=== PATIENT | female | born 1950 | race Hispanic/Latino ===

== ENCOUNTER 2016-12-08 10:17 | Inpatient (IN) | payer MEDICARE, MEDICAID ==
[2016-12-08 10:17] VITALS: BMI 31.1
--- NOTE | 2016-12-08 12:14 | C.PDOC ---
History Of Present Illness 66 y/o female, PMHx of peripheral vascular changes, limb ischemia, and stents to bilateral legs, sent to ER by DR. Alvarado for evaluation. Patient c/o bilateral leg pain when walking. Also reports increasing cold sensation to bilateral feet. Patient seen by Dr. Alvarado today. Denies fever, chills, chest pain, SOB, nausea, vomiting, weakness, numbness, or other associated symptoms. Time Seen by Provider: 12/08/16 11:24 Chief Complaint (Nursing): Lower Extremity Problem/Injury History Per: Patient History/Exam Limitations: no limitations Onset/Duration Of Symptoms: Days Current Symptoms Are (Timing): Worse Recent travel outside of the [place]: No Past Medical History Reviewed: Historical Data, Nursing Documentation, Vital Signs Vital Signs: Last Vital Signs Temp 98.7 F 12/08/16 16:40 Pulse 62 12/08/16 16:40 Resp 18 12/08/16 16:40 BP 154/79 H 12/08/16 16:40 Pulse Ox 98 12/08/16 16:40 - Medical History PMH: Anemia, Arthritis, Back Problems (sciatica), CAD, Diabetes, HTN, Hypercholesterolemia Surgical History: Coronary Stent (X1), Tonsillectomy - [facility] Procedures ARTHROCENTESIS (07/18/14) DILATION OF L FEM ART WITH DRUG-ELUT INTRALUM, PERC APPROACH (10/14/15) DILATION OF LEFT EXTERNAL ILIAC VEIN, PERCUTANEOUS APPROACH (11/04/15) DILATION OF LEFT FEMORAL VEIN, PERCUTANEOUS APPROACH (11/04/15) DILATION OF R FEM ART WITH INTRALUM DEV, PERC APPROACH (10/28/15) DILATION OF R POPL ART WITH INTRALUM DEV, PERC APPROACH (10/28/15) DILATION OF RIGHT ANTERIOR TIBIAL ARTERY, PERC APPROACH (03/07/16) DILATION OF RIGHT FEMORAL ARTERY, PERCUTANEOUS APPROACH (03/07/16) DILATION OF RIGHT POPLITEAL ARTERY, PERCUTANEOUS APPROACH (03/07/16) EXTIRPATION OF MATTER FROM L EXT ILIAC VEIN, PERC APPROACH (11/04/15) EXTIRPATION OF MATTER FROM LEFT FEMORAL VEIN, PERC APPROACH (11/04/15) EXTIRPATION OF MATTER FROM R FEM ART, PERC APPROACH (10/28/15) INTRODUCE OTH THROMBOLYTIC IN PERIPH VEIN, PERC (11/04/15) TRANSFUSE NONAUT RED BLOOD CELLS IN PERIPH VEIN, PERC (11/04/15) VACCINATION NEC (03/02/14) Family History: States: Diabetes - Social History Hx Tobacco Use: Yes Hx Alcohol Use: No Hx Substance Use: No - Immunization History Hx Tetanus Toxoid Vaccination: No Hx Influenza Vaccination: No Hx Pneumococcal Vaccination: Yes (PT UNSURE) Review Of Systems Except As Marked, All Systems Reviewed And Found Negative. Constitutional: Negative for: Fever, Chills Cardiovascular: Negative for: Chest Pain Respiratory: Negative for: Cough, Shortness of Breath Gastrointestinal: Negative for: Nausea, Vomiting Musculoskeletal: Positive for: Leg Pain (bilateral), Foot Pain (bilateral) Skin: Negative for: Rash Neurological: Negative for: Weakness, Numbness, Dizziness Physical Exam - Physical Exam Appears: Non-toxic, No Acute Distress Skin: Normal Color, Warm, Dry, No Rash Head: Atraumatic, Normacephalic Eye(s): bilateral: Normal Inspection, PERRL, EOMI Oral Mucosa: Moist Neck: Normal ROM, Supple Chest: Symmetrical Cardiovascular: Rhythm Regular Respiratory: Normal Breath Sounds, No Rales, No Rhonchi, No Wheezing Gastrointestinal/Abdominal: Soft, No Tenderness, No Guarding, No Rebound Back: Normal Inspection Extremity: Normal ROM, Tenderness (bilateral dosral feet), No Calf Tenderness, Capillary Refill, No Deformity, Other (left leg cooler than right, 3.0 cm area of erythema right medial ankle. Bilateral feet are pale) Extremity: Bilateral: Atraumatic Pulses: Left Dorsalis Pedis: Decreased, Right Dorsalis Pedis: Decreased Neurological/Psych: Oriented x3, Normal Speech, Normal Cognition, Normal Motor, Normal Sensation Gait: Steady ED Course And Treatment - Laboratory Results Result Diagrams: 12/08/16 12:25 12/08/16 12:25 O2 Sat by Pulse Oximetry: 98 (RA) Pulse Ox Interpretation: Normal - Radiology CXR: Viewed By Me, Read By Radiologist CXR Interpretation: Yes: No Acute Disease. No: Infiltrates, Pnemothorax Medical Decision Making Medical Decision Making: Plan: * Arterial scan * CxR * Labs * Reassess Progress: On re-exam, the patient has pain with walking secondary to increased claudication. The case was discussed with Dr. Alvarado who states he will consult on the patient for vascular studies and possible surgery on the stent in the bilateral legs. Dr. Alvarado wants the patient admtted to the hospitalist. The case was discussed with who agrees to admit the patient. Disposition - Disposition Disposition: HOSPITALIZED Disposition Time: 12:00 Condition: GOOD - Clinical Impression Clinical Impression: arterial Oclusion - PA / CAKE PUNCHER / Resident Statement MD/DO has reviewed & agrees with the documentation as recorded. - Scribe Statement The provider has reviewed the documentation as recorded by the Scribe Omkar Lynn All medical record entries made by the Catrachito were at my direction and personally dictated by me. I have reviewed the chart and agree that the record accurately reflects my personal performance of the history, physical exam, medical decision making, and the department course for this patient. I have also personally directed, reviewed, and agree with the discharge instructions and disposition.
[2016-12-08 12:41] LABS: BASO # 0.1 K/uL (0.0-0.2); BASO % 0.8 % (0.0-2.0); EOS # 0.1 K/uL (0.0-0.7); EOS % 1.4 % (0.0-4.0); HEMOGLOBIN 10.7 g/dL (11.0-16.0); LYMPH # 1.5 K/uL (1.0-4.3); LYMPH % 19.4 % (20.0-40.0); MEAN CELL VOLUME 81.4 fL (81.0-99.0); MEAN CORPUSCULAR HEMOGLOBIN 26.7 pg (27.0-31.0); MEAN CORPUSCULAR HGB CONC 32.8 g/dL (33.0-37.0); MEAN PLATELET VOLUME 9.9 fL (7.2-11.7); MONO # 0.5 K/uL (0.0-0.8); MONO % 6.8 % (0.0-10.0); NEUT # 5.6 K/uL (1.8-7.0); NEUT % 71.6 % (50.0-75.0); RED CELL DISTRIBUTION WIDTH 13.8 % (11.5-14.5); WHITE BLOOD COUNT 7.8 K/uL (4.8-10.8)
[2016-12-08 12:44] LABS: ALBUMIN 3.6 g/dL (3.5-5.0)
[2016-12-08 12:47] LABS: ALB/GLOB RATIO 1.1 (1.0-2.1); GFR AFRICAN-AMERICAN > 60; GFR NON-AFRICAN AMERICAN > 60
[2016-12-08 12:48] LABS: ALT/SGPT 20 U/L (9-52); AST/SGOT 14 U/L (14-36); BLOOD UREA NITROGEN 17 mg/dL (7-17); CALCIUM 9.1 mg/dl (8.6-10.4)
[2016-12-08 12:50] LABS: INR 1.2
--- NOTE | 2016-12-08 13:07 | RAD ---
HISTORY: SOB COMPARISON: Chest x-ray performed 03/07/16 TECHNIQUE: Chest, one view. FINDINGS: Examination limited by habitus. LUNGS: No focal consolidation. Please note that chest x-ray has limited sensitivity for the detection of pulmonary masses. PLEURA: No significant pleural effusion identified. No definite pneumothorax . CARDIOVASCULAR: Heart size appears within normal limits. Atherosclerotic calcifications of the aorta. OSSEOUS STRUCTURES: No acute osseous abnormality identified. VISUALIZED UPPER ABDOMEN: Unremarkable. OTHER FINDINGS: None. IMPRESSION: No focal consolidation, significant pleural effusion, or definite pneumothorax identified.
[2016-12-08 14:13] LABS: SQUAMOUS EPITHIAL 9 /hpf (0-5); URINE BACTERIA RARE (<OCC); URINE BILIRUBIN NEGATIVE (NEGATIVE); URINE BLOOD 1+ (NEGATIVE); URINE CLARITY Hazy (Clear); URINE COLOR Yellow (YELLOW); URINE GLUCOSE (UA) NORMAL (Normal); URINE LEUKOCYTE ESTERASE 3+ Leu/uL (Negative); URINE NITRATE NEGATIVE (NEGATIVE); URINE PROTEIN NEGATIVE (NEGATIVE); URINE UROBILINOGEN NORMAL mg/dL (0.2-1.0)
[2016-12-08] MEDS ORDERED: Iodixanol 320 mg/ml 150 ml Bottle IV ONE (15:53)
[2016-12-08] MEDS: Sodium Chloride 0.9% 1,000 ML IV SCH (16:18)
--- NOTE | 2016-12-08 16:33 | CP.PCM.HP ---
<Kalyn Almonte - Last Filed: 12/08/16 18:09> History of Present Illness - History of Present Illness History of Present Illness: CC: LE pain 66 year old female with past medical history of DM, HTN, HLD, PVD s/p B/L stents , hx of DVT on Eliquis and CAD s/p stent presents to hospital for B/L LE claudication. She was sent in by her automatic car wash attendant, Dr. Alvarado. Patient states that she has been having progressively worsening pain with walking. She was previously able to walk a few blocks but recently is limited due to pain and can only walk about 1/2 a block. Patient also c/o having cold legs and feet. Patient also notes slight erythematous skin changes on right ankle which is painful to touch. She denies having any fevers, chills, SOB, CP, abd pain, N/V/ D/C, dysuria. Patient was previously hospitalized in 03/2016 for similar symptoms. At that time, she underwent balloon angioplasty, angiojet thrombectomy, and TPA. Patient was also hospitalized in 11/2015 for DVT. At that time, patient underwent TPA infusion. Today, patient has pulses noted with doppler. 12 point ROS are negative except for the above mentioned. PMHx; stated above Sx: LE stents B/L, CAD stent Social: 1 ppdx 50 years (quit a few days ago), denies ETOH or drug use Medications: See EDWIN NKDA Present on Admission - Present on Admission Any Indicators Present on Admission: Yes History of DVT/PE: Yes History of Uncontrolled Diabetes: No Past Patient History - Infectious Disease Hx of Infectious Diseases: None - Past Medical History & Family History Past Medical History?: Yes - Past Social History Smoking Status: Current Some Days Smoker Chewing Tobacco Use: No Cigar Use: No Alcohol: None Drugs: Denies - CARDIAC Hx Hypercholesterolemia: Yes Hx Hypertension: Yes - PULMONARY Hx Respiratory Disorders: No - HEENT Hx HEENT Problems: Yes (HOARSENESS) Hx Cataracts: Yes Other/Comment: WEARS GLASSES - ENDOCRINE/METABOLIC Hx Endocrine Disorders: Yes Hx Diabetes Mellitus Type 2: Yes - HEMATOLOGICAL/ONCOLOGICAL Hx Anemia: Yes - MUSCULOSKELETAL/RHEUMATOLOGICAL Hx Arthritis: Yes - PSYCHIATRIC Hx Substance Use: No - SURGICAL HISTORY Hx Coronary Stent: Yes (X1) Hx Tonsillectomy: Yes - ANESTHESIA Hx Anesthesia: Yes Hx Anesthesia Reactions: No Hx Malignant Hyperthermia: No Meds Home Medications: Home Medication List Medication Instructions Recorded Confirmed Type Losartan [Cozaar] 50 mg PO DAILY tab 12/15/16 Rx hydroCHLOROthiazide [Hydrodiuril] 12.5 mg PO DAILY tab 12/15/16 Rx Allergies/Adverse Reactions: Allergies Allergy/AdvReac Type Severity Reaction Status Date / Time No Known Allergies Allergy Verified 12/08/16 10:21 Physical Exam - Constitutional Appears: Non-toxic, No Acute Distress - Head Exam Head Exam: ATRAUMATIC - Eye Exam Eye Exam: EOMI - ENT Exam ENT Exam: Mucous Membranes Moist - Respiratory Exam Respiratory Exam: Clear to Auscultation Bilateral. absent: Accessory Muscle Use , Rales, Rhonchi, Wheezes, Respiratory Distress - Cardiovascular Exam Cardiovascular Exam: REGULAR RHYTHM, +S1, +S2. absent: Diastolic murmur, Gallop , Rubs, Systolic Murmur - GI/Abdominal Exam GI & Abdominal Exam: Normal Bowel Sounds, Soft. absent: Diminished Bowel Sounds , Distended, Firm, Organomegaly, Rebound, Rigid, Tenderness - Extremities Exam Extremities exam: Positive for: calf tenderness. Negative for: pedal edema, pedal pulses present (only noted with dopplers) - Neurological Exam Neurological exam: Alert, Oriented x3 - Psychiatric Exam Psychiatric exam: Normal Affect, Normal Mood - Skin Skin Exam: Dry, Intact Additional comments: erythematous skin changes noted on right ankle. Results - Vital Signs Recent Vital Signs: Last Vital Signs Temp 100.1 F H 12/08/16 10:19 Pulse 68 12/08/16 10:19 Resp 20 12/08/16 10:19 BP 113/71 12/08/16 10:19 Pulse Ox 98 12/08/16 13:11 - Labs Result Diagrams: 12/08/16 12:25 12/08/16 12:25 Assessment & Plan - Assessment and Plan (Free Text) Assessment: 66 year old female with past medical history of DM, HTN, HLD, PVD s/p B/L stents, hx of DVT on Eliquis and CAD s/p stent is admitted to hospital for worsening claudication likely due to PAD. PAD with worsening claudication - LE arterial dopplers were done. Right TEMI is 0.24 and left TEMI is 0.54 - CT angio of LE was done, results are pending - Director Of Development, Dr. Alvarado is consulted. - Lovenox 70 mg sc BID - Plavix 75 mg po qd Cellulitis of right ankle - Will consult podiatry - Started on vancomycin 1 gm IVPB qd and zosyn 3.375 mg IVPB q 6 - Patient started on Florastor - Patient started on NS 100 cc - Lotrimin top BID Hxt of DVT - will await the results of CT angio - will hold Eliquis - Started on Lovenox 70 mg Sc BID DM - Accuchecks ACHS - ISS low - Will hold home metformin - will continue home Januvia and glipizide - Recent HgbA1c in 10/2016 was 8.5 HtN - Will continue home medications: Lopressor 25 mg po qd, Losartan 50 mg po qd, HCTZ 12.5 mg po qd HLD - will continue home medication: [place] 3 fatty acid, Lipitor 40 mg po qd CAD -Will discuss with Dr. Alvarado about starting aspirin and eliquis Prophylaxis - Pepcid - Eliquis Case will be discussed with attending, Dr. Banks - Date & Time Date: 12/08/16 Time: 16:59 <Ruth Banks V - Last Filed: 12/15/16 17:40> Results - Vital Signs Recent Vital Signs: Last Vital Signs Temp 98.6 F 12/15/16 08:00 Pulse 94 H 12/15/16 09:05 Resp 24 12/15/16 09:05 BP 162/79 H 12/15/16 09:20 Pulse Ox 99 12/15/16 09:05 - Labs Result Diagrams: 12/15/16 07:04 12/15/16 07:04 Labs: Laboratory Results - last 24 hr 12/14/16 12/14/16 12/15/16 17:33 21:11 07:04 WBC 5.1 RBC 3.43 L Hgb 9.2 L Hct 28.3 L MCV 82.5 MCH 26.9 L MCHC 32.5 L RDW 13.9 Plt Count 128 L MPV 9.7 Neut % (Auto) 72.3 Lymph % (Auto) 16.2 L [place] % (Auto) 8.5 Eos % (Auto) 2.6 Baso % (Auto) 0.4 Neut # 3.7 Lymph # 0.8 L [place] # 0.4 Eos # 0.1 Baso # 0.0 Sodium Potassium Chloride Carbon Dioxide Anion Gap BUN Creatinine Est GFR ( Amer) Est GFR (Non-Af Amer) POC Glucose (mg/dL) 168 H 269 H Random Glucose Calcium Phosphorus Magnesium Total Bilirubin AST ALT Alkaline Phosphatase Total Protein Albumin Globulin Albumin/Globulin Ratio 12/15/16 12/15/16 12/15/16 07:04 08:30 11:39 WBC RBC Hgb Hct MCV MCH MCHC RDW Plt Count MPV Neut % (Auto) Lymph % (Auto) [place] % (Auto) Eos % (Auto) Baso % (Auto) Neut # Lymph # [place] # Eos # Baso # Sodium 133 Potassium 3.8 Chloride 101 Carbon Dioxide 22 Anion Gap 14 BUN 20 H Creatinine 1.0 Est GFR ( Amer) > 60 Est GFR (Non-Af Amer) 55 POC Glucose (mg/dL) 241 H 260 H Random Glucose 245 H Calcium 8.4 L Phosphorus 4.1 Magnesium 1.9 Total Bilirubin 0.7 AST 55 H D ALT 39 Alkaline Phosphatase 60 Total Protein 5.8 L Albumin 2.9 L Globulin 3.0 Albumin/Globulin Ratio 1.0 Assessment & Plan (1) Peripheral artery disease Status: Acute Priority: High (2) Chronic kidney disease, stage 3 Status: Chronic (3) CAD (coronary artery disease) Status: Chronic (4) Diabetes mellitus Status: Chronic (5) HTN (hypertension) Status: Chronic (6) Hyperlipidemia Status: Chronic (7) History of deep vein thrombosis Status: Chronic (8) Ulcer of right ankle Status: Acute (9) Prophylactic measure Status: Acute Attending/Attestation - Attestation I have personally seen and examined this patient.: Yes I have fully participated in the care of the patient.: Yes I have reviewed all pertinent clinical information: Yes Notes (Text): This is late compute entry for 12/08/16. Patient seen, examined and case discussed with day-time resident. Addendum: Family history: noncontributory Patient seen and evaluated by automatic car wash attendant outpatient, instructed to come to hospital upon worsening peripheral vascular disease. Discussed with ED PA, pulses detectable by doppler of PT and DP. Per cardiology, ordered for LE arterial doppler and CT angio of lower extremities. Patient's primary care doctor, Dr. García notified upon admission of patient hospitalization; will provide full history when has access to EMR in office. Assessment/Plan 1) Severe peripheral vascular disease * Cardiology (Dr. Alvarado) on the case-->help appreciated; patient's outpatient automatic car wash attendant * LE arterial dopplers were done. Right TEMI is 0.24 and left TEMI is 0.54 * Completed: CT angio of LE was done, results are pending * Eliquis held on admission; per cardiology,patient started on Lovenox 70 mg sc BID and Plavix 75 mg po qdaily * patient to be NPO past breakfast for procedure with Dr. Alvarado 2) Cellulitis of right ankle * Podiatry (Dr. Ken Rocha) on the case-->help appreciated; patient's outpatient travel insurance agent * Started on vancomycin 1 gm IVPB qdaily and zosyn 3.375 mg IVPB q 6hours to cover for cellulitis * Florastor 250mg PO bid * NS 100 cc/hr * Lotrimin top BID to cover for antifungal * Area outline over right ankle with purple marker by resident 3) Hxt of DVT * will await the results of CT angio of patient's lower extremities * will hold patient's Eliquis on admission; patient started on started on Lovenox 70 mg SC BID per automatic car wash attendant 4) Diabetes Mellitus * Accuchecks ACHS * ISS low * Will hold home metformin * will continue home Januvia and glipizide * Recent HgbA1c in 10/2016 was 8.5; will need repeat in 6 months-1 year 5) Hypertension * Will continue home medications: * Lopressor 25 mg po qdaily * Losartan 50 mg po qdaily * HCTZ 12.5 mg po qdaily 6) Hyperlipidemia * will continue home medication: * [place] 3 fatty acid * Lipitor 40 mg po qd-->not available on hospital formulary-->converted to Crestor during hospitalization 7) CAD * f/u automatic car wash attendant regarding aspirin; plavix and therapeutic lovenox on board 8) Prophylaxis * Pepcid for GI ppx * Held Eliquis on admission; patient started on therapuetic lovenox, and plavis * NPO for procedure with Dr. Alvarado in AM
[2016-12-08] MEDS: Clotrimazole 1% Cream(30 gm) TOP SCH (18:00)
[2016-12-08] MEDS ORDERED: Vancomycin 1 gm/NS 200 ml 1 GM/200 ML BAG IVPB SCH (19:00)
[2016-12-08] MEDS: Enoxaparin 80 mg Syringe SC SCH (19:07)
[2016-12-08] MEDS: Piperacill/Tazo 3.375gm in Dex 3.375 GM/50 ML BAG IVPB SCH (22:26)
[2016-12-08] MEDS: (Novolin R) Insulin Human Regular 100 units/ml vial SC SCH (22:28)
--- NOTE | 2016-12-08 23:34 | CP.PCM.CON ---
History of Present Illness - History of Present Illness History of Present Illness: Patient seen and evaluated For PA in am Past Patient History - Infectious Disease Hx of Infectious Diseases: None - Past Medical History & Family History Past Medical History?: Yes - Past Social History Smoking Status: Current Some Days Smoker Chewing Tobacco Use: No Cigar Use: No Alcohol: None Drugs: Denies - CARDIAC Hx Hypercholesterolemia: Yes Hx Hypertension: Yes - PULMONARY Hx Respiratory Disorders: No - HEENT Hx HEENT Problems: Yes (HOARSENESS) Hx Cataracts: Yes Other/Comment: WEARS GLASSES - ENDOCRINE/METABOLIC Hx Endocrine Disorders: Yes Hx Diabetes Mellitus Type 2: Yes - HEMATOLOGICAL/ONCOLOGICAL Hx Anemia: Yes - MUSCULOSKELETAL/RHEUMATOLOGICAL Hx Arthritis: Yes - PSYCHIATRIC Hx Substance Use: No - SURGICAL HISTORY Hx Coronary Stent: Yes (X1) Hx Tonsillectomy: Yes - ANESTHESIA Hx Anesthesia: Yes Hx Anesthesia Reactions: No Hx Malignant Hyperthermia: No Meds Allergies/Adverse Reactions: Allergies Allergy/AdvReac Type Severity Reaction Status Date / Time No Known Allergies Allergy Verified 12/08/16 10:21 - Medications Medications: Current Medications Acetaminophen (Tylenol 325mg Tab) 650 mg PO Q6 PRN PRN Reason: Fever >100.4 F Aspirin (Ecotrin) 81 mg PO DAILY [facility] Clopidogrel Bisulfate (Plavix) 75 mg PO DAILY [facility] Last Admin: 12/08/16 19:06 Dose: 75 mg Clotrimazole (Lotrimin 1%) 1 gm TOP BID [facility] Last Admin: 12/08/16 18:00 Dose: 1 applic Enoxaparin Sodium (Lovenox) 70 mg SC Q12H [facility] Last Admin: 12/08/16 19:07 Dose: 70 mg Famotidine (Pepcid) 20 mg PO DAILY PRN PRN Reason: Heartburn Gabapentin (Neurontin) 600 mg PO BID [facility] Last Admin: 12/08/16 19:06 Dose: 600 mg Glipizide (Glucotrol) 10 mg PO BID [facility] Hydrochlorothiazide (Microzide) 12.5 mg PO DAILY [facility] Sodium Chloride (Sodium Chloride 0.9%) 1,000 mls @ 100 mls/hr IV .Q10H [facility] Last Admin: 12/08/16 16:18 Dose: 100 mls/hr Piperacillin Sod/Tazobactam Sod (Zosyn 3.375 Gm Iv Premix) 3.375 gm in 50 mls @ 100 mls/hr IVPB Q6H [facility] Last Admin: 12/08/16 22:26 Dose: 100 mls/hr Vancomycin/Sodium Chloride (Vancocin) 1 gm in 200 mls @ 133 mls/hr IVPB DAILY [facility] Stop: 12/14/16 10:01 Insulin Human Regular (Novolin R) 0 unit SC ACHS [facility] PRN Reason: Protocol Last Admin: 12/08/16 22:28 Dose: Not Given Losartan Potassium (Cozaar) 50 mg PO DAILY [facility] Metoprolol Tartrate (Lopressor) 25 mg PO DAILY [facility] [id number] Ethyl Esters (Lovaza) 1,000 gm PO DAILY [facility] Rosuvastatin Calcium (Crestor) 20 mg PO HS [facility] Last Admin: 12/08/16 22:26 Dose: 20 mg Saccharomyces Boulardii (Florastor) 250 mg PO DAILY [facility] Sitagliptin Phosphate (Januvia) 100 mg PO DAILY [facility] Results - Vital Signs Recent Vital Signs: Last Vital Signs Temp 98.4 F 12/08/16 18:03 Pulse 65 12/08/16 18:03 Resp 20 12/08/16 18:03 BP 148/77 12/08/16 18:03 Pulse Ox 95 12/08/16 18:03 - Labs Result Diagrams: 12/08/16 12:25 12/08/16 12:25 Labs: Laboratory Results - last 24 hr 12/08/16 21:32 POC Glucose (mg/dL) 114 H
[2016-12-09] MEDS: Sodium Chloride 0.9% 1,000 ML IV SCH ×4 (00:50→22:39)
[2016-12-09] MEDS: Piperacill/Tazo 3.375gm in Dex 3.375 GM/50 ML BAG IVPB SCH ×4 (05:52→22:18)
[2016-12-09] MEDS: Enoxaparin 80 mg Syringe SC SCH ×2 (05:59→19:36)
[2016-12-09] MEDS: (Novolin R) Insulin Human Regular 100 units/ml vial SC SCH ×4 (07:45→22:39)
[2016-12-09] MEDS ORDERED: Omega-3-Acid Ethyl Esters 1 GM Cap PO SCH (10:00)
[2016-12-09] MEDS: Saccharomyces Boulardi 250 mg Cap PO SCH (10:44)
[2016-12-09] MEDS: Clotrimazole 1% Cream(30 gm) TOP SCH ×2 (10:45→17:47)
[2016-12-09] MEDS: Vancomycin 1 gm/NS 200 ml 1 GM/200 ML BAG IVPB SCH (11:00)
[2016-12-09 11:58] LABS: BASO % 0.6 % (0.0-2.0); EOS # 0.1 K/uL (0.0-0.7); EOS % 1.4 % (0.0-4.0); HEMOGLOBIN 10.7 g/dL (11.0-16.0); LYMPH # 1.1 K/uL (1.0-4.3); LYMPH % 18.9 % (20.0-40.0); MEAN CELL VOLUME 80.9 fL (81.0-99.0); MEAN CORPUSCULAR HEMOGLOBIN 26.3 pg (27.0-31.0); MEAN CORPUSCULAR HGB CONC 32.6 g/dL (33.0-37.0); MEAN PLATELET VOLUME 10.5 fL (7.2-11.7); MONO # 0.4 K/uL (0.0-0.8); MONO % 7.2 % (0.0-10.0); NEUT # 4.2 K/uL (1.8-7.0); NEUT % 71.9 % (50.0-75.0); RBC 4.07 Mil/uL (3.80-5.20); RED CELL DISTRIBUTION WIDTH 13.7 % (11.5-14.5); WHITE BLOOD COUNT 5.8 K/uL (4.8-10.8)
[2016-12-09 12:13] LABS: ALBUMIN 3.7 g/dL (3.5-5.0)
[2016-12-09 12:16] LABS: ALB/GLOB RATIO 1.1 (1.0-2.1); ALT/SGPT 18 U/L (9-52); AST/SGOT 15 U/L (14-36); BLOOD UREA NITROGEN 14 mg/dL (7-17); GFR AFRICAN-AMERICAN > 60; GFR NON-AFRICAN AMERICAN > 60
[2016-12-09 12:17] LABS: CALCIUM 9.1 mg/dl (8.6-10.4); MAGNESIUM 1.9 mg/dL (1.6-2.3)
--- NOTE | 2016-12-09 13:25 | VASCLAB ---
STUDY DESCRIPTION: HISTORY: PVD, hx of stents to bilateral legs, cold extr PRIORS: None. TECHNIQUE: Pulse volume recording waveforms and segmental pressures of bilateral lower extremities at multiple levels were obtained. Ankle Brachial Indices (ABIs) were calculated. Report prepared by ANJALI Mullins, RVT RIGHT LOWER EXTREMITY: * Brachial artery: Pressure - 155 mmHg. * High thigh: Pressure - mmHg: Ratio - : PVR waveform - Pulsatile * Low thigh: Pressure - mmHg: Ratio - PVR waveform: Reduced * Calf: Pressure - 55 mmHg: Ratio - 0.35 PVR waveform: Reduced * Posterior tibial Artery: Pressure - 35 mmHg: Ratio - 0.23 PVR waveform: None * Dorsalis pedis Artery: Pressure - 37 mmHg: Ratio - 0.24 PVR waveform: None * Great toe: Pressure - mmHg: Ratio - PVR waveform: Ankle brachial index (TEMI): 0.24 LEFT LOWER EXTREMITY: * Brachial artery: Pressure - 141 mmHg. * High thigh: Pressure - mmHg: Ratio - : PVR waveform - Pulsatile * Low thigh: Pressure - mmHg: Ratio - PVR waveform: Reduced * Calf: Pressure - 89 mmHg: Ratio - 0.57 PVR waveform: Reduced * Posterior tibial Artery: Pressure - 75 mmHg: Ratio - 0.48 PVR waveform: Reduced * Dorsalis pedis Artery: Pressure - 84 mmHg: Ratio - 0.54 PVR waveform: Reduced * Great toe: Pressure - mmHg: Ratio - PVR waveform: Ankle brachial index (TEMI): 0.54 OTHER FINDINGS: Right: Left: IMPRESSION: Right: This exam reveals severely decreased perfusion of the right lower extremity, noted at the superficial femoral, popliteal amd tibial artery levels. Left: This exam reveals severely decreased perfusion of the left lower extremity, noted at the superficial femoral, popliteal amd tibial artery levels.
--- NOTE | 2016-12-09 13:48 | CT ---
PROCEDURE: CT Angiography Abdomen, Pelvis and Lower Extremity with Contrast HISTORY: severe b/l leg pain, cold extr, hx of stent b/l COMPARISON: None. TECHNIQUE: Technique: CT angiography of the abdomen, pelvis and bilateral lower extremities performed in the arterial phase of enhancement. Coronal and sagittal reformats, and well as rotating MIP images of the vessels generated at the workstation. Intravenous contrast dose: 100 milliliters Visipaque 320 Radiation dose: Total exam DLP = 1956.96 MGy-cm. This CT exam was performed using one or more of the following dose reduction techniques: Automated exposure control, adjustment of the mA and/or kV according to patient size, and/or use of iterative reconstruction technique. FINDINGS: CT ANGIOGRAPHY: ABDOMINAL AORTA:: Abdominal was unremarkable MAJOR AORTIC BRANCHES: Celiac [place]: Unremarkable. Superior mesenteric artery: Unremarkable. Inferior mesenteric artery: Unremarkable. Renal arteries: Mild calcific plaque at the origin right renal artery which is otherwise unremarkable PELVIC ARTERIES: Right Common Iliac: Unremarkable. Right External Iliac: Unremarkable. Right Internal Iliac: Unremarkable. Left Common Iliac: Unremarkable. Left External Iliac: Unremarkable. Left Internal Iliac: Unremarkable. RIGHT LOWER EXTREMITY ARTERIES: Right Common Femoral: Unremarkable. Right Superficial Femoral: Proximal SFA stent has in moderate stent stenosis. There is mild to severe stenosis of the mid SFA. Mid SFA stent is has severe in stent stenosis which extends to the popliteal artery. Distal aspect of the stent in the popliteal artery is patent. The popliteal artery beyond the stent is patent but small in caliber. Right Profunda Femoris: Unremarkable. Right Anterior Tibial: Unremarkable. Right Tibioperoneal Trunk: Severe calcification of the tibioperoneal trunk. Right Posterior Tibial: Believed to be patent. Right Peroneal: Unremarkable. Right dorsalis pedis : Unremarkable. LEFT LOWER EXTREMITY ARTERIES: Left Common Femoral: Unremarkable. Left Superficial Femoral: Previously placed SFA stent is patent. There is significant in stent stenosis throughout the stent. The stent extends from the proximal SFA to the popliteal artery. The distal popliteal artery is severely stenotic. Left Profunda Femoris: Unremarkable. Left Popliteal: Severely stenotic Left Anterior Tibial: Calcification the origin anterior tibial artery which otherwise patent. Left Tibioperoneal Trunk: Moderate calcific plaque of the tibioperoneal trunk. Left Posterior Tibial: Occlusion of the distal posterior tibial artery Left Peroneal: Unremarkable. Left Dorsalis pedis: Unremarkable. NON-ANGIOGRAPHIC ASPECT OF THE EXAM: LOWER THORAX: Unremarkable. LIVER: Unremarkable. No gross lesion or ductal dilatation. GALLBLADDER AND BILE DUCTS: Unremarkable. PANCREAS: Unremarkable. No gross lesion or ductal dilatation. SPLEEN: Unremarkable. ADRENALS: Unremarkable. No mass. KIDNEYS AND URETERS: Unremarkable. No hydronephrosis. No solid mass. STOMACH AND BOWEL: Unremarkable. No obstruction. No gross mural thickening. APPENDIX: Normal appendix. PERITONEUM: Unremarkable. No free fluid. No free air. LYMPH NODES: Unremarkable. No enlarged lymph nodes. BLADDER: Unremarkable. REPRODUCTIVE: Unremarkable. BONES: No acute fracture. OTHER FINDINGS: None. IMPRESSION: CT ANGIOGRAM ABDOMEN/ PELVIS: 1. Essentially unremarkable CT angiogram of the abdomen pelvis. RIGHT LOWER EXTREMITY CT ANGIOGRAM: 1. Common femoral artery profunda femoral artery normal. 2. Proximal SFA stent has significant InStent stenosis and is otherwise patent. Distal SFA stent extending the popliteal artery is occluded. The popliteal artery beyond the stent is severely stenotic. 3. Runoff shows patent anterior tibial artery. The tibioperoneal trunk is calcified. The peroneal artery is patent. The posterior tibial artery also believed to be patent. LEFT LOWER EXTREMITY CT ANGIOGRAM: 1. Unremarkable common femoral artery profunda femoral artery. 2. SFA stent extending from proximal SFA to the popliteal artery has significant in stent stenosis and believed to be patent. 3. There is severe stenosis of popliteal artery beyond the stent. 4. Runoff shows a patent anterior tibial artery calcification near the origin. This calcification with tibioperoneal trunk. The peroneal artery is patent. There is occlusion of the distal posterior tibial artery.
[2016-12-09] MEDS ORDERED: DiphenhydrAMINE 50 mg/ml Inj IVP STA (22:02)
--- NOTE | 2016-12-09 22:23 | CP.PCM.PN ---
Subjective - Date & Time of Evaluation Date of Evaluation: 12/09/16 Time of Evaluation: 07:50 - Subjective Subjective: Patienr seen and evaluated For Peripheral angio tomorrow Objective - Vital Signs/Intake and Output Vital Signs (last 24 hours): Temp Pulse Resp BP Pulse Ox 98.3 F 55 L 20 146/72 95 12/09/16 15:10 12/09/16 15:10 12/09/16 15:10 12/09/16 15:10 12/09/16 15:10 Intake and Output: 12/09/16 12/10/16 18:59 06:59 Intake Total 950 Balance 950 - Medications Medications: Current Medications Acetaminophen (Tylenol 325mg Tab) 650 mg PO Q6 PRN PRN Reason: Fever >100.4 F Aspirin (Ecotrin) 81 mg PO DAILY [facility] Last Admin: 12/09/16 10:44 Dose: 81 mg Clopidogrel Bisulfate (Plavix) 75 mg PO DAILY [facility] Last Admin: 12/09/16 10:44 Dose: 75 mg Clotrimazole (Lotrimin 1%) 1 gm TOP BID [facility] Last Admin: 12/09/16 17:47 Dose: 1 applic Enoxaparin Sodium (Lovenox) 70 mg SC Q12H [facility] Last Admin: 12/09/16 19:36 Dose: 70 mg Famotidine (Pepcid) 20 mg PO DAILY PRN PRN Reason: Heartburn Last Admin: 12/09/16 10:44 Dose: 20 mg Gabapentin (Neurontin) 600 mg PO BID [facility] Last Admin: 12/09/16 17:47 Dose: 600 mg Glipizide (Glucotrol) 10 mg PO BID [facility] Hydrochlorothiazide (Microzide) 12.5 mg PO DAILY [facility] Last Admin: 12/09/16 10:44 Dose: 12.5 mg Sodium Chloride (Sodium Chloride 0.9%) 1,000 mls @ 100 mls/hr IV .Q10H [facility] Last Admin: 12/09/16 17:47 Dose: 100 mls/hr Piperacillin Sod/Tazobactam Sod (Zosyn 3.375 Gm Iv Premix) 3.375 gm in 50 mls @ 100 mls/hr IVPB Q6H [facility] Last Admin: 12/09/16 22:18 Dose: 100 mls/hr Vancomycin/Sodium Chloride (Vancocin) 1 gm in 200 mls @ 133 mls/hr IVPB DAILY [facility] Stop: 12/14/16 10:01 Last Admin: 12/09/16 11:00 Dose: 133 mls/hr Insulin Human Regular (Novolin R) 0 unit SC ACHS [facility] PRN Reason: Protocol Last Admin: 12/09/16 17:51 Dose: 2 unit Losartan Potassium (Cozaar) 50 mg PO DAILY [facility] Last Admin: 12/09/16 10:44 Dose: 50 mg Metoprolol Tartrate (Lopressor) 25 mg PO DAILY [facility] Last Admin: 12/09/16 10:44 Dose: 25 mg Xrkxf-6-Gpoh Ethyl Esters (Lovaza) 1,000 gm PO DAILY [facility] Last Admin: 12/09/16 10:44 Dose: 1,000 gm Rosuvastatin Calcium (Crestor) 20 mg PO HS [facility] Last Admin: 12/09/16 22:17 Dose: 20 mg Saccharomyces Boulardii (Florastor) 250 mg PO DAILY [facility] Last Admin: 12/09/16 10:44 Dose: 250 mg Sitagliptin Phosphate (Januvia) 100 mg PO DAILY [facility] Last Admin: 12/09/16 10:54 Dose: Not Given - Labs Labs: 12/09/16 11:53 12/09/16 11:53 PT 13.0 SECONDS (9.7-12.2) H 12/08/16 12:25 INR 1.2 12/08/16 12:25 APTT 35 SECONDS (21-34) H 12/08/16 12:25
--- NOTE | 2016-12-09 23:13 | CP.PCM.PN ---
<MervinColby R - Last Filed: 12/09/16 23:10> Subjective - Date & Time of Evaluation Date of Evaluation: 12/09/16 Time of Evaluation: 13:00 - Subjective Subjective: Patient seen and examined at bedside. Patient was not in acute distress. She was about to leave for her CT angio of LLE. She stated she was not in pain. She denied diarrhea, shortness of breath, chest pain, fever, headache. Objective - Vital Signs/Intake and Output Vital Signs (last 24 hours): Temp Pulse Resp BP Pulse Ox 98.3 F 55 L 20 146/72 95 12/09/16 15:10 12/09/16 15:10 12/09/16 15:10 12/09/16 15:10 12/09/16 15:10 Intake and Output: 12/09/16 12/10/16 18:59 06:59 Intake Total 950 1040 Balance 950 1040 - Medications Medications: Current Medications Acetaminophen (Tylenol 325mg Tab) 650 mg PO Q6 PRN PRN Reason: Fever >100.4 F Aspirin (Ecotrin) 81 mg PO DAILY [facility] Last Admin: 12/09/16 10:44 Dose: 81 mg Clopidogrel Bisulfate (Plavix) 75 mg PO DAILY [facility] Last Admin: 12/09/16 10:44 Dose: 75 mg Clotrimazole (Lotrimin 1%) 1 gm TOP BID [facility] Last Admin: 12/09/16 17:47 Dose: 1 applic Enoxaparin Sodium (Lovenox) 70 mg SC Q12H [facility] Last Admin: 12/09/16 19:36 Dose: 70 mg Famotidine (Pepcid) 20 mg PO DAILY PRN PRN Reason: Heartburn Last Admin: 12/09/16 10:44 Dose: 20 mg Gabapentin (Neurontin) 600 mg PO BID [facility] Last Admin: 12/09/16 17:47 Dose: 600 mg Glipizide (Glucotrol) 10 mg PO BID [facility] Hydrochlorothiazide (Microzide) 12.5 mg PO DAILY [facility] Last Admin: 12/09/16 10:44 Dose: 12.5 mg Sodium Chloride (Sodium Chloride 0.9%) 1,000 mls @ 100 mls/hr IV .Q10H [facility] Last Admin: 12/09/16 22:39 Dose: Not Given Piperacillin Sod/Tazobactam Sod (Zosyn 3.375 Gm Iv Premix) 3.375 gm in 50 mls @ 100 mls/hr IVPB Q6H [facility] Last Admin: 12/09/16 22:18 Dose: 100 mls/hr Vancomycin/Sodium Chloride (Vancocin) 1 gm in 200 mls @ 133 mls/hr IVPB DAILY [facility] Stop: 12/14/16 10:01 Last Admin: 12/09/16 11:00 Dose: 133 mls/hr Insulin Human Regular (Novolin R) 0 unit SC ACHS [facility] PRN Reason: Protocol Last Admin: 12/09/16 22:39 Dose: Not Given Losartan Potassium (Cozaar) 50 mg PO DAILY [facility] Last Admin: 12/09/16 10:44 Dose: 50 mg Metoprolol Tartrate (Lopressor) 25 mg PO DAILY [facility] Last Admin: 12/09/16 10:44 Dose: 25 mg Pmipm-5-Yjxm Ethyl Esters (Lovaza) 1,000 gm PO DAILY [facility] Last Admin: 12/09/16 10:44 Dose: 1,000 gm Rosuvastatin Calcium (Crestor) 20 mg PO HS [facility] Last Admin: 12/09/16 22:17 Dose: 20 mg Saccharomyces Boulardii (Florastor) 250 mg PO DAILY [facility] Last Admin: 12/09/16 10:44 Dose: 250 mg Sitagliptin Phosphate (Januvia) 100 mg PO DAILY [facility] Last Admin: 12/09/16 10:54 Dose: Not Given - Labs Labs: 12/09/16 11:53 12/09/16 11:53 PT 13.0 SECONDS (9.7-12.2) H 12/08/16 12:25 INR 1.2 12/08/16 12:25 APTT 35 SECONDS (21-34) H 12/08/16 12:25 - Constitutional Appears: Well - Head Exam Head Exam: ATRAUMATIC, NORMAL INSPECTION, NORMOCEPHALIC - Eye Exam Eye Exam: EOMI, Normal appearance, PERRL - ENT Exam ENT Exam: Mucous Membranes Moist, Normal Exam - Neck Exam Neck Exam: Full ROM, Normal Inspection. absent: Lymphadenopathy - Respiratory Exam Respiratory Exam: Clear to Ausculation Bilateral, NORMAL BREATHING PATTERN. absent: Wheezes - Cardiovascular Exam Cardiovascular Exam: REGULAR RHYTHM, RRR, +S1, +S2 - GI/Abdominal Exam GI & Abdominal Exam: Soft, Normal Bowel Sounds. absent: Tenderness - Rectal Exam Rectal Exam: Deferred - Extremities Exam Extremities Exam: Full ROM, Normal Capillary Refill, Normal Inspection. absent : Joint Swelling, Pedal Edema - Neurological Exam Neurological Exam: Alert, Awake, Oriented x3 - Psychiatric Exam Psychiatric exam: Normal Affect, Normal Mood - Skin Skin Exam: Dry, Intact, Normal Color, Warm Assessment and Plan - Assessment and Plan (Free Text) Assessment: 66 year old female with past medical history of DM, HTN, HLD, PVD s/p B/L stents, hx of DVT on Eliquis and CAD s/p stent is admitted to hospital for worsening claudication likely due to PAD. PAD with worsening claudication 12/09: Procedure with cardiology delayed until tomorrow - LE arterial dopplers were done. Right TEMI is 0.24 and left TEMI is 0.54 - CT angio of LE was done: 1. Unremarkable common femoral artery profunda femoral artery. 2. SFA stent extending from proximal SFA to the popliteal artery has significant in stent stenosis and believed to be patent. 3. There is severe stenosis of popliteal artery beyond the stent. 4. Runoff shows a patent anterior tibial artery calcification near the origin. This calcification with tibioperoneal trunk. The peroneal artery is patent. There is occlusion of the distal posterior tibial artery. - [facility], Dr. Alvarado is consulted. - Lovenox 70 mg sc BID - Plavix 75 mg po qd Cellulitis of right ankle - Will consult podiatry - Started on vancomycin 1 gm IVPB qd and zosyn 3.375 mg IVPB q 6 - Patient started on Florastor - Patient started on NS 100 cc - Lotrimin top BID Hxt of DVT - will await the results of CT angio - will hold Eliquis - Started on Lovenox 70 mg Sc BID DM - Accuchecks ACHS - ISS low - Will hold home metformin - will continue home Januvia and glipizide - Recent HgbA1c in 10/2016 was 8.5 HtN - Will continue home medications: Lopressor 25 mg po qd, Losartan 50 mg po qd, HCTZ 12.5 mg po qd HLD - will continue home medication: Kegley 3 fatty acid, Lipitor 40 mg po qd CAD -Will discuss with Dr. Alvarado about starting aspirin and eliquis Prophylaxis - Pepcid - Eliquis <Borker,Ruth V - Last Filed: 12/15/16 17:48> Objective - Vital Signs/Intake and Output Vital Signs (last 24 hours): Temp Pulse Resp BP Pulse Ox 98.6 F 94 H 24 162/79 H 99 12/15/16 08:00 12/15/16 09:05 12/15/16 09:05 12/15/16 09:20 12/15/16 09:05 Intake and Output: 12/15/16 12/15/16 06:59 18:59 Intake Total 1300 305 Output Total 400 300 Balance 900 5 - Labs Labs: 12/15/16 07:04 12/15/16 07:04 PT 13.0 SECONDS (9.7-12.2) H 12/08/16 12:25 INR 1.2 12/08/16 12:25 APTT 35 SECONDS (21-34) H 12/08/16 12:25 Assessment and Plan (1) Peripheral artery disease Status: Acute (2) Chronic kidney disease, stage 3 Status: Chronic (3) CAD (coronary artery disease) Status: Chronic (4) Diabetes mellitus Status: Chronic (5) HTN (hypertension) Status: Chronic (6) Hyperlipidemia Status: Chronic (7) History of deep vein thrombosis Status: Chronic (8) Ulcer of right ankle Status: Acute (9) Prophylactic measure Status: Acute Attending/Attestation - Attestation I have personally seen and examined this patient.: Yes I have fully participated in the care of the patient.: Yes I have reviewed all pertinent clinical information, including history, physical exam and plan: Yes Notes (Text): This is late computer entry for 12/09/16. Patient seen, examined, and case discussed with day-time pharmacy graduate intern. Procedure cancelled today; discussed with nurse, learning center coordinator had emergency; patient re-scheduled for tomorrow. Patient's diet resumed today. Patient to be NPO tomorrow for procedure with learning center coordinator; Note addendum: patient's DP pulses are difficult to assess based on palpation. confirmed with doppler. X is on the feet where pulses are detectable. Assessment/Plan 1) Severe peripheral vascular disease * Cardiology (Dr. 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 Right TEMI is 0.24 and left TEMI is 0.54 * Completed: CT angio of LE was done, results are pending * Eliquis held on admission; per cardiology,patient started on Lovenox 70 mg sc BID, Plavix 75 mg po qdaily, Aspirin 81mg PO daily * patient to be NPO past breakfast for procedure with Dr. Alvarado 2) Cellulitis of right ankle * Podiatry (Dr. 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 * Started on vancomycin 1 gm IVPB qdaily and zosyn 3.375 mg IVPB q 6hours to cover for cellulitis * Florastor 250mg PO bid * NS 100 cc/hr * Lotrimin top BID to cover for antifungal * Area outline over right ankle with purple marker by resident 3) Hxt of DVT * will await the results of CT angio of patient's lower extremities * will hold patient's Eliquis on admission; patient started on started on Lovenox 70 mg SC BID per learning center coordinator 4) Diabetes Mellitus * Accuchecks ACHS * ISS low * Will hold home metformin * will continue home Januvia and held glipizide * Recent HgbA1c in 10/2016 was 8.5; will need repeat in 6 months-1 year 5) Hypertension * Will continue home medications: * Lopressor 25 mg po qdaily * Losartan 50 mg po qdaily * HCTZ 12.5 mg po qdaily 6) Hyperlipidemia * will continue home medication: * Kegley 3 fatty acid * Lipitor 40 mg po qd-->not available on hospital formulary-->converted to Crestor during hospitalization 7) CAD * Aspirin 81mg po daily plavix and therapeutic lovenox on board 8) Prophylaxis * Pepcid for GI ppx * Held Eliquis on admission; patient started on therapuetic lovenox, and plavis * NPO for procedure with Dr. Alvarado in AM
[2016-12-10] MEDS: Piperacill/Tazo 3.375gm in Dex 3.375 GM/50 ML BAG IVPB SCH ×4 (05:37→22:13)
[2016-12-10] MEDS: Sodium Chloride 0.9% 1,000 ML IV SCH ×2 (05:43→08:38)
[2016-12-10] MEDS: Enoxaparin 80 mg Syringe SC SCH (06:46)
[2016-12-10 07:50] LABS: BASO % 0.7 % (0.0-2.0); EOS # 0.1 K/uL (0.0-0.7); EOS % 2.6 % (0.0-4.0); HEMOGLOBIN 9.9 g/dL (11.0-16.0); LYMPH # 0.8 K/uL (1.0-4.3); LYMPH % 20.1 % (20.0-40.0); MEAN CELL VOLUME 80.6 fL (81.0-99.0); MEAN CORPUSCULAR HEMOGLOBIN 26.8 pg (27.0-31.0); MEAN CORPUSCULAR HGB CONC 33.2 g/dL (33.0-37.0); MEAN PLATELET VOLUME 9.8 fL (7.2-11.7); MONO # 0.4 K/uL (0.0-0.8); MONO % 9.2 % (0.0-10.0); NEUT # 2.7 K/uL (1.8-7.0); NEUT % 67.4 % (50.0-75.0); NRBC % 0.1 % (0.0-2.0); RBC 3.69 Mil/uL (3.80-5.20); RED CELL DISTRIBUTION WIDTH 13.3 % (11.5-14.5); WHITE BLOOD COUNT 4.1 K/uL (4.8-10.8)
[2016-12-10 08:14] LABS: ALBUMIN 3.2 g/dL (3.5-5.0)
[2016-12-10 08:16] LABS: GFR AFRICAN-AMERICAN > 60; GFR NON-AFRICAN AMERICAN > 60
[2016-12-10 08:17] LABS: ALT/SGPT 20 U/L (9-52); AST/SGOT 15 U/L (14-36); BLOOD UREA NITROGEN 11 mg/dL (7-17)
[2016-12-10 08:18] LABS: CALCIUM 8.9 mg/dl (8.6-10.4)
--- NOTE | 2016-12-10 08:24 | CP.PCM.CON ---
History of Present Illness - History of Present Illness History of Present Illness: Pt seen at bedside for eval of right ankle ulcer and redness. Pt known to me from the office. Pt states the area has been red for over 1 week. She was seen by Dr. Alvarado in the office who wanted pt to be admitted for further work up of circ status. Pt is scheduled for lower extremity angio today with Dr. Alvarado. Pt denies any hx of trauma. Past Patient History - Infectious Disease Hx of Infectious Diseases: None - Past Medical History & Family History Past Medical History?: Yes - Past Social History Smoking Status: Current Some Days Smoker Chewing Tobacco Use: No Cigar Use: No Alcohol: None Drugs: Denies - CARDIAC Hx Hypercholesterolemia: Yes Hx Hypertension: Yes - PULMONARY Hx Respiratory Disorders: No - HEENT Hx HEENT Problems: Yes (HOARSENESS) Hx Cataracts: Yes Other/Comment: WEARS GLASSES - ENDOCRINE/METABOLIC Hx Endocrine Disorders: Yes Hx Diabetes Mellitus Type 2: Yes - HEMATOLOGICAL/ONCOLOGICAL Hx Anemia: Yes - MUSCULOSKELETAL/RHEUMATOLOGICAL Hx Arthritis: Yes - PSYCHIATRIC Hx Substance Use: No - SURGICAL HISTORY Hx Coronary Stent: Yes (X1) Hx Tonsillectomy: Yes - ANESTHESIA Hx Anesthesia: Yes Hx Anesthesia Reactions: No Hx Malignant Hyperthermia: No Meds Allergies/Adverse Reactions: Allergies Allergy/AdvReac Type Severity Reaction Status Date / Time No Known Allergies Allergy Verified 12/08/16 10:21 - Medications Medications: Current Medications Acetaminophen (Tylenol 325mg Tab) 650 mg PO Q6 PRN PRN Reason: Fever >100.4 F Aspirin (Ecotrin) 81 mg PO DAILY [facility] Last Admin: 12/09/16 10:44 Dose: 81 mg Clopidogrel Bisulfate (Plavix) 75 mg PO DAILY [facility] Last Admin: 12/09/16 10:44 Dose: 75 mg Clotrimazole (Lotrimin 1%) 1 gm TOP BID [facility] Last Admin: 12/09/16 17:47 Dose: 1 applic Enoxaparin Sodium (Lovenox) 70 mg SC Q12H [facility] Last Admin: 12/10/16 06:46 Dose: 70 mg Famotidine (Pepcid) 20 mg PO DAILY PRN PRN Reason: Heartburn Last Admin: 12/09/16 10:44 Dose: 20 mg Gabapentin (Neurontin) 600 mg PO BID [facility] Last Admin: 12/09/16 17:47 Dose: 600 mg Glipizide (Glucotrol) 10 mg PO BID [facility] Hydrochlorothiazide (Microzide) 12.5 mg PO DAILY [facility] Last Admin: 12/09/16 10:44 Dose: 12.5 mg Sodium Chloride (Sodium Chloride 0.9%) 1,000 mls @ 100 mls/hr IV .Q10H [facility] Last Admin: 12/10/16 05:43 Dose: 100 mls/hr Piperacillin Sod/Tazobactam Sod (Zosyn 3.375 Gm Iv Premix) 3.375 gm in 50 mls @ 100 mls/hr IVPB Q6H [facility] Last Admin: 12/10/16 05:37 Dose: 100 mls/hr Vancomycin/Sodium Chloride (Vancocin) 1 gm in 200 mls @ 133 mls/hr IVPB DAILY [facility] Stop: 12/14/16 10:01 Last Admin: 12/09/16 11:00 Dose: 133 mls/hr Insulin Human Regular (Novolin R) 0 unit SC ACHS [facility] PRN Reason: Protocol Last Admin: 12/09/16 22:39 Dose: Not Given Losartan Potassium (Cozaar) 50 mg PO DAILY [facility] Last Admin: 12/09/16 10:44 Dose: 50 mg Metoprolol Tartrate (Lopressor) 25 mg PO DAILY [facility] Last Admin: 12/09/16 10:44 Dose: 25 mg Oveyb-9-Uxal Ethyl Esters (Lovaza) 1,000 gm PO DAILY [facility] Last Admin: 12/09/16 10:44 Dose: 1,000 gm Rosuvastatin Calcium (Crestor) 20 mg PO HS [facility] Last Admin: 12/09/16 22:17 Dose: 20 mg Saccharomyces Boulardii (Florastor) 250 mg PO DAILY [facility] Last Admin: 12/09/16 10:44 Dose: 250 mg Sitagliptin Phosphate (Januvia) 100 mg PO DAILY [facility] Last Admin: 12/09/16 10:54 Dose: Not Given Physical Exam - Additional Findings Additional findings: Vascular exam shows diminished pulses B/L. Right ankle ulcer noted at med malleolus - dry, scaly skin with no fluccuance or probe to bone. There is localized cellulitis noted. No malodor or drainage. Results - Vital Signs Recent Vital Signs: Last Vital Signs Temp 98 F 12/10/16 07:10 Pulse 81 12/10/16 07:10 Resp 18 12/10/16 07:10 BP 179/77 H 12/10/16 07:10 Pulse Ox 94 L 12/10/16 07:10 - Labs Result Diagrams: 12/10/16 07:40 12/10/16 07:40 Labs: Laboratory Results - last 24 hr 12/09/16 12/09/16 12/09/16 11:36 11:53 11:53 WBC 5.8 RBC 4.07 Hgb 10.7 L Hct 32.9 L MCV 80.9 L MCH 26.3 L MCHC 32.6 L RDW 13.7 Plt Count 134 MPV 10.5 Neut % (Auto) 71.9 Lymph % (Auto) 18.9 L [place] % (Auto) 7.2 Eos % (Auto) 1.4 Baso % (Auto) 0.6 Neut # 4.2 Lymph # 1.1 [place] # 0.4 Eos # 0.1 Baso # 0.0 Sodium 140 Potassium 4.3 Chloride 108 H Carbon Dioxide 22 Anion Gap 14 BUN 14 Creatinine 0.8 Est GFR ( Amer) > 60 Est GFR (Non-Af Amer) > 60 POC Glucose (mg/dL) 133 H Random Glucose 123 H Calcium 9.1 Phosphorus 3.9 Magnesium 1.9 Total Bilirubin 1.1 AST 15 ALT 18 Alkaline Phosphatase 73 Total Protein 7.0 Albumin 3.7 Globulin 3.3 Albumin/Globulin Ratio 1.1 12/09/16 12/09/16 12/10/16 16:35 21:28 06:11 WBC RBC Hgb Hct MCV MCH MCHC RDW Plt Count MPV Neut % (Auto) Lymph % (Auto) [place] % (Auto) Eos % (Auto) Baso % (Auto) Neut # Lymph # [place] # Eos # Baso # Sodium Potassium Chloride Carbon Dioxide Anion Gap BUN Creatinine Est GFR ( Amer) Est GFR (Non-Af Amer) POC Glucose (mg/dL) 215 H 149 H 122 H Random Glucose Calcium Phosphorus Magnesium Total Bilirubin AST ALT Alkaline Phosphatase Total Protein Albumin Globulin Albumin/Globulin Ratio 12/10/16 12/10/16 07:40 07:40 WBC 4.1 L RBC 3.69 L Hgb 9.9 L Hct 29.7 L MCV 80.6 L MCH 26.8 L MCHC 33.2 RDW 13.3 Plt Count 127 L MPV 9.8 Neut % (Auto) 67.4 Lymph % (Auto) 20.1 [place] % (Auto) 9.2 Eos % (Auto) 2.6 Baso % (Auto) 0.7 Neut # 2.7 Lymph # 0.8 L [place] # 0.4 Eos # 0.1 Baso # 0.0 Sodium 142 Potassium 4.3 Chloride 108 H Carbon Dioxide 27 Anion Gap 11 BUN 11 Creatinine 0.8 Est GFR ( Amer) > 60 Est GFR (Non-Af Amer) > 60 POC Glucose (mg/dL) Random Glucose 118 H Calcium 8.9 Phosphorus 3.7 Magnesium 2.0 Total Bilirubin 0.8 AST 15 ALT 20 Alkaline Phosphatase 59 Total Protein 6.2 L Albumin 3.2 L Globulin 3.1 Albumin/Globulin Ratio 1.0 Assessment & Plan - Assessment and Plan (Free Text) Assessment: 1. Right ankle ulcer 2. PVD 3. Cellulitis Plan: 1. H+P 2. Wound care orders written 3. Will order X-Ray right ankle to eval for any bony erosion or osteo 4. Will cont to monitor while inhouse. Thanks for allowing me to participate in the care of your patient. - Date & Time Date: 12/10/16 Time: 08:28
[2016-12-10] MEDS: (Novolin R) Insulin Human Regular 100 units/ml vial SC SCH ×4 (08:28→21:33)
[2016-12-10] MEDS: Vancomycin 1 gm/NS 200 ml 1 GM/200 ML BAG IVPB SCH (09:15)
[2016-12-10] MEDS: Omega-3-Acid Ethyl Esters 1 GM Cap PO SCH (10:00)
[2016-12-10] MEDS: Saccharomyces Boulardi 250 mg Cap PO SCH (10:00)
[2016-12-10] MEDS ORDERED: Midazolam 2 MG/2 ML VIAL ONE (10:23)
[2016-12-10] MEDS ORDERED: Iodixanol 320 MG/ML 200 ML BOTTLE IV ONE (10:30)
[2016-12-10] MEDS ORDERED: Iodixanol 320 MG/ML 100 ML BOTTLE IV ONE (10:30)
[2016-12-10] MEDS ORDERED: ALTEPLASE IV SCH (11:19)
[2016-12-10] MEDS ORDERED: SODIUM CHLORIDE 0.9% IV SCH (11:19)
[2016-12-10] MEDS ORDERED: Heparin25000 units/250ml 1/2NS 25,000 UNITS/250 ML BAG IV ONE (11:40)
[2016-12-10] MEDS: Clotrimazole 1% Cream(30 gm) TOP SCH ×2 (12:38→18:00)
--- NOTE | 2016-12-10 14:05 | CP.PCM.CON ---
<Lionel Beckett - Last Filed: 12/10/16 15:16> History of Present Illness - History of Present Illness History of Present Illness: ICU Consult note: Dr Gresham s/p EKOS left SFA 66F with PMH of DM, HTN, HLD, PVD s/p B/L stents, hx of DVT on Eliquis and CAD s /p stent. Pt presented 3 days ago B/L LE claudication. 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 Alvarado. Pt states she was previously able to walk a few blocks but recently the increase in pain had significantly limited her to 1/2 block. Pt has also been complaining about cold limbs. Pt also has cellulitis of LLE and RLE. Pt brought to ICU s/p SFA thrombolysis and EKOS catheter placement. She is on bed rest until further notice. Currently complaining about leg pain. Worse on the right. Currently denies any N/V, F/C, SOB or chest pain. Dopplerable pulses. PMHx; stated above Sx: LE stents B/L, CAD stent Social: 1 ppdx 49 years (quit a few days ago), denies ETOH or drug use Medications: See [facility] [place] Review of Systems - Review of Systems All systems: reviewed and no additional remarkable complaints except (per hpi) Past Patient History - Infectious Disease Hx of Infectious Diseases: None - Past Medical History & Family History Past Medical History?: Yes - Past Social History Smoking Status: Current Some Days Smoker Chewing Tobacco Use: No Cigar Use: No Alcohol: None Drugs: Denies - CARDIAC Hx Hypercholesterolemia: Yes Hx Hypertension: Yes - PULMONARY Hx Respiratory Disorders: No - HEENT Hx HEENT Problems: Yes (HOARSENESS) Hx Cataracts: Yes Other/Comment: WEARS GLASSES - ENDOCRINE/METABOLIC Hx Endocrine Disorders: Yes Hx Diabetes Mellitus Type 2: Yes - HEMATOLOGICAL/ONCOLOGICAL Hx Anemia: Yes - MUSCULOSKELETAL/RHEUMATOLOGICAL Hx Arthritis: Yes - PSYCHIATRIC Hx Substance Use: No - SURGICAL HISTORY Hx Coronary Stent: Yes (X1) Hx Tonsillectomy: Yes - ANESTHESIA Hx Anesthesia: Yes Hx Anesthesia Reactions: No Hx Malignant Hyperthermia: No Meds Allergies/Adverse Reactions: Allergies Allergy/AdvReac Type Severity Reaction Status Date / Time No Known Allergies Allergy Verified 12/08/16 10:21 - Medications Medications: Current Medications Acetaminophen (Tylenol 325mg Tab) 650 mg PO Q6 PRN PRN Reason: Fever >100.4 F Aspirin (Ecotrin) 81 mg PO DAILY [facility] Last Admin: 12/10/16 10:00 Dose: Not Given Clopidogrel Bisulfate (Plavix) 75 mg PO DAILY [facility] Last Admin: 12/10/16 10:00 Dose: Not Given Clotrimazole (Lotrimin 1%) 1 gm TOP BID [facility] Last Admin: 12/10/16 12:38 Dose: Not Given Famotidine (Pepcid) 20 mg PO DAILY PRN PRN Reason: Heartburn Last Admin: 12/09/16 10:44 Dose: 20 mg Gabapentin (Neurontin) 600 mg PO BID [facility] Last Admin: 12/10/16 10:00 Dose: Not Given Glipizide (Glucotrol) 10 mg PO BID [facility] Heparin Sodium (Porcine) (Heparin) 500 units IVP Q1H [facility] Hydrochlorothiazide (Microzide) 12.5 mg PO DAILY [facility] Last Admin: 12/10/16 10:00 Dose: Not Given Sodium Chloride (Sodium Chloride 0.9%) 1,000 mls @ 100 mls/hr IV .Q10H [facility] Last Admin: 12/10/16 08:38 Dose: Not Given Piperacillin Sod/Tazobactam Sod (Zosyn 3.375 Gm Iv Premix) 3.375 gm in 50 mls @ 100 mls/hr IVPB Q6H [facility] Last Admin: 12/10/16 12:41 Dose: Not Given Vancomycin/Sodium Chloride (Vancocin) 1 gm in 200 mls @ 133 mls/hr IVPB DAILY [facility] Stop: 12/14/16 10:01 Last Admin: 12/10/16 09:15 Dose: Not Given Alteplase, Recombinant 20 mg/ (Sodium Chloride) 500 mls @ 25 mls/hr IV .Q20H [facility] Stop: 12/11/16 12:00 Insulin Human Regular (Novolin R) 0 unit SC ACHS [facility] PRN Reason: Protocol Last Admin: 12/10/16 12:40 Dose: Not Given Losartan Potassium (Cozaar) 50 mg PO DAILY [facility] Last Admin: 12/10/16 09:06 Dose: 50 mg Metoprolol Tartrate (Lopressor) 25 mg PO DAILY [facility] Last Admin: 12/10/16 09:06 Dose: 25 mg Mupirocin (Bactroban Ointment) 0 gm TOP BID [facility] [id number]-8-[id number] Ethyl Esters (Lovaza) 1 gm PO DAILY [facility] Last Admin: 12/10/16 10:00 Dose: Not Given Rosuvastatin Calcium (Crestor) 20 mg PO HS [facility] Last Admin: 12/09/16 22:17 Dose: 20 mg Saccharomyces Boulardii (Florastor) 250 mg PO DAILY [facility] Last Admin: 12/10/16 10:00 Dose: Not Given Sitagliptin Phosphate (Januvia) 100 mg PO DAILY [facility] Last Admin: 12/10/16 10:00 Dose: Not Given Physical Exam - Constitutional Appears: Non-toxic, No Acute Distress - Head Exam Head Exam: ATRAUMATIC - Eye Exam Eye Exam: EOMI Pupil Exam: PERRL - ENT Exam ENT Exam: Mucous Membranes Moist - Respiratory Exam Respiratory Exam: Clear to Auscultation Bilateral. absent: Accessory Muscle Use , Decreased Breath Sounds, Respiratory Distress - Cardiovascular Exam Cardiovascular Exam: REGULAR RHYTHM. absent: Tachycardia - GI/Abdominal Exam GI & Abdominal Exam: Soft. absent: Distended, Firm, Tenderness - Exam Additional comments: groin site C/D/I - Extremities Exam Extremities exam: Positive for: pedal pulses present. Negative for: calf tenderness, pedal edema Additional comments: cold - Neurological Exam Neurological exam: Alert, Oriented x3 - Psychiatric Exam Psychiatric exam: Normal Affect, Normal Mood - Skin Skin Exam: Normal Color, Warm Results - Vital Signs Recent Vital Signs: Last Vital Signs Temp 98 F 12/10/16 07:10 Pulse 81 12/10/16 07:10 Resp 18 12/10/16 07:10 BP 179/77 H 12/10/16 09:06 Pulse Ox 94 L 12/10/16 07:10 - Labs Result Diagrams: 12/10/16 07:40 12/10/16 07:40 Labs: Laboratory Results - last 24 hr 12/09/16 12/09/16 12/10/16 16:35 21:28 06:11 WBC RBC Hgb Hct MCV MCH MCHC RDW Plt Count MPV Neut % (Auto) Lymph % (Auto) [place] % (Auto) Eos % (Auto) Baso % (Auto) Neut # Lymph # [place] # Eos # Baso # Differential Comment Sodium Potassium Chloride Carbon Dioxide Anion Gap BUN Creatinine Est GFR ( Amer) Est GFR (Non-Af Amer) POC Glucose (mg/dL) 215 H 149 H 122 H Random Glucose Calcium Phosphorus Magnesium Total Bilirubin AST ALT Alkaline Phosphatase Total Protein Albumin Globulin Albumin/Globulin Ratio 12/10/16 12/10/16 07:40 07:40 WBC 4.1 L RBC 3.69 L Hgb 9.9 L Hct 29.7 L MCV 80.6 L MCH 26.8 L MCHC 33.2 RDW 13.3 Plt Count 127 L MPV 9.8 Neut % (Auto) 67.4 Lymph % (Auto) 20.1 [place] % (Auto) 9.2 Eos % (Auto) 2.6 Baso % (Auto) 0.7 Neut # 2.7 Lymph # 0.8 L [place] # 0.4 Eos # 0.1 Baso # 0.0 Differential Comment Sodium 142 Potassium 4.3 Chloride 108 H Carbon Dioxide 27 Anion Gap 11 BUN 11 Creatinine 0.8 Est GFR ( Amer) > 60 Est GFR (Non-Af Amer) > 60 POC Glucose (mg/dL) Random Glucose 118 H Calcium 8.9 Phosphorus 3.7 Magnesium 2.0 Total Bilirubin 0.8 AST 15 ALT 20 Alkaline Phosphatase 59 Total Protein 6.2 L Albumin 3.2 L Globulin 3.1 Albumin/Globulin Ratio 1.0 Assessment & Plan - Assessment and Plan (Free Text) Assessment: 66F POD#0 s/p SFA thrombolysis with EKOS catheter placement Plan: Neuro: GCS 15 AAO x 3 Cardiovascular: Will resume home BP meds Heparin/TPA/NS infusion into EKOS catheter as per Dr Alvarado Pulmonary: NC @ 2L PRN Gastrointestinal: Resume HHD NPO @ [place] Pepcid IVP Hematology: Type and Cross 2 units Anti-coagulation as above Endocrine: Home meds as ordered Renal: No MERLINE, baseline Cr normal. Will f/u labs s/p procedure Musculoskeletal: Bed rest til tomorrow Infectious Disease: On Zosyn GI Prophylaxis: Pepcid DVT Prophylaxis: On TPA/Heparin EKOS protocol. Resume Heparin Drip tomorrow 6 hours post removal discussed with Dr Mp Beckett, PGY3 - Date & Time Date: 12/10/16 Time: 15:18 <Alex Gresham - Last Filed: 12/10/16 16:17> Meds - Medications Medications: Current Medications Acetaminophen (Tylenol 325mg Tab) 650 mg PO Q6 PRN PRN Reason: Fever >100.4 F Clotrimazole (Lotrimin 1%) 1 gm TOP BID [facility] Last Admin: 12/10/16 12:38 Dose: Not Given Famotidine (Pepcid) 20 mg PO DAILY PRN PRN Reason: Heartburn Last Admin: 12/09/16 10:44 Dose: 20 mg Gabapentin (Neurontin) 600 mg PO BID [facility] Last Admin: 12/10/16 10:00 Dose: Not Given Glipizide (Glucotrol) 10 mg PO BID [facility] Hydrochlorothiazide (Microzide) 12.5 mg PO DAILY [facility] Last Admin: 12/10/16 10:00 Dose: Not Given Piperacillin Sod/Tazobactam Sod (Zosyn 3.375 Gm Iv Premix) 3.375 gm in 50 mls @ 100 mls/hr IVPB Q6H [facility] Last Admin: 12/10/16 12:41 Dose: Not Given Vancomycin/Sodium Chloride (Vancocin) 1 gm in 200 mls @ 133 mls/hr IVPB DAILY [facility] Stop: 12/14/16 10:01 Last Admin: 12/10/16 09:15 Dose: Not Given Alteplase, Recombinant 20 mg/ (Sodium Chloride) 500 mls @ 25 mls/hr IV .Q20H [facility] Stop: 12/11/16 12:00 Last Admin: 12/10/16 15:44 Dose: 25 mls/hr Heparin Sodium/Sodium Chloride (Heparin 56117 Units/250ml 1/2 Normal Saline) 25 ,000 units in 250 mls @ 5 mls/hr IV .Q24H PRN; Protocol PRN Reason: PROTOCOL Sodium Chloride (Sodium Chloride 0.9%) 1,000 mls @ 35 mls/hr IV .Q24H [facility] Insulin Human Regular (Novolin R) 0 unit SC ACHS [facility] PRN Reason: Protocol Last Admin: 12/10/16 12:40 Dose: Not Given Losartan Potassium (Cozaar) 50 mg PO DAILY [facility] Last Admin: 12/10/16 09:06 Dose: 50 mg Metoprolol Tartrate (Lopressor) 25 mg PO DAILY [facility] Last Admin: 12/10/16 09:06 Dose: 25 mg Mupirocin (Bactroban Ointment) 0 gm TOP BID [facility] Last Admin: 12/10/16 14:23 Dose: Not Given Rnhdc-4-[id number] Ethyl Esters (Lovaza) 1 gm PO DAILY [facility] Last Admin: 12/10/16 10:00 Dose: Not Given Rosuvastatin Calcium (Crestor) 20 mg PO HS [facility] Last Admin: 12/09/16 22:17 Dose: 20 mg Saccharomyces Boulardii (Florastor) 250 mg PO DAILY [facility] Last Admin: 12/10/16 10:00 Dose: Not Given Sitagliptin Phosphate (Januvia) 100 mg PO DAILY [facility] Last Admin: 12/10/16 10:00 Dose: Not Given Results - Vital Signs Recent Vital Signs: Last Vital Signs Temp 98.0 F 12/10/16 16:00 Pulse 66 12/10/16 16:00 Resp 16 12/10/16 16:00 BP 173/65 H 12/10/16 16:00 Pulse Ox 96 12/10/16 16:00 - Labs Result Diagrams: 12/10/16 07:40 12/10/16 07:40 Labs: Laboratory Results - last 24 hr 12/09/16 12/09/16 12/10/16 16:35 21:28 06:11 WBC RBC Hgb Hct MCV MCH MCHC RDW Plt Count MPV Neut % (Auto) Lymph % (Auto) [place] % (Auto) Eos % (Auto) Baso % (Auto) Neut # Lymph # [place] # Eos # Baso # Differential Comment Sodium Potassium Chloride Carbon Dioxide Anion Gap BUN Creatinine Est GFR ( Amer) Est GFR (Non-Af Amer) POC Glucose (mg/dL) 215 H 149 H 122 H Random Glucose Calcium Phosphorus Magnesium Total Bilirubin AST ALT Alkaline Phosphatase Total Protein Albumin Globulin Albumin/Globulin Ratio 12/10/16 12/10/16 07:40 07:40 WBC 4.1 L RBC 3.69 L Hgb 9.9 L Hct 29.7 L MCV 80.6 L MCH 26.8 L MCHC 33.2 RDW 13.3 Plt Count 127 L MPV 9.8 Neut % (Auto) 67.4 Lymph % (Auto) 20.1 [place] % (Auto) 9.2 Eos % (Auto) 2.6 Baso % (Auto) 0.7 Neut # 2.7 Lymph # 0.8 L [place] # 0.4 Eos # 0.1 Baso # 0.0 Differential Comment Sodium 142 Potassium 4.3 Chloride 108 H Carbon Dioxide 27 Anion Gap 11 BUN 11 Creatinine 0.8 Est GFR ( Amer) > 60 Est GFR (Non-Af Amer) > 60 POC Glucose (mg/dL) Random Glucose 118 H Calcium 8.9 Phosphorus 3.7 Magnesium 2.0 Total Bilirubin 0.8 AST 15 ALT 20 Alkaline Phosphatase 59 Total Protein 6.2 L Albumin 3.2 L Globulin 3.1 Albumin/Globulin Ratio 1.0 Attending/Attestation - Attestation I have personally seen and examined this patient.: Yes I have fully participated in the care of the patient.: Yes I have reviewed all pertinent clinical information: Yes Notes (Text): 12/10/16 16:16 Patient seen and examined in the intensive care unit. Case discussed with STAFF in the morning. 66 year old female with past medical history of DM, HTN, HLD, PVD s/p B/L stents, hx of DVT on Eliquis and CAD s/p stent is admitted to hospital for worsening claudication likely due to PAD s/p SFA thrombolysis with EKOS catheter placement
[2016-12-10] MEDS ORDERED: HYDROmorphone 1 mg/ml ISec IVP STA (15:04)
[2016-12-10] MEDS ORDERED: Heparin25000 units/250ml 1/2NS 25,000 UNITS/250 ML BAG IV PRN (15:35)
[2016-12-10] MEDS: SODIUM CHLORIDE 0.9% IV SCH (15:44)
[2016-12-10] MEDS: ALTEPLASE IV SCH (15:44)
[2016-12-10] MEDS ORDERED: Sodium Chloride 0.9% 1,000 ML IV SCH (16:00)
--- NOTE | 2016-12-10 17:17 | CP.PCM.PN ---
Subjective - Date & Time of Evaluation Date of Evaluation: 12/10/16 Time of Evaluation: 17:15 - Subjective Subjective: Medical Attending Note Follow-up: Severe peripheral vascular disease Patient seen, examined and case discussed with ICU and cardiology. Patient completed TPA-directed echos procedure peripheral angiogram with SFA lower left extremity with Dr. Antoine. Patient transferred to ICU post procedure. Patient reporting pain post-procedure. Patient did not received medications this morning. Discussed cardiology, to stop aspirin, plavix, and therapeutic Lovenox. Patient reports she feels constipated. She has not had a bowel movement today. Objective - Vital Signs/Intake and Output Vital Signs (last 24 hours): Temp Pulse Resp BP Pulse Ox 98.0 F 69 14 170/71 H 96 12/10/16 16:00 12/10/16 16:45 12/10/16 16:45 12/10/16 16:45 12/10/16 16:00 Intake and Output: 12/10/16 12/10/16 06:59 18:59 Intake Total 1890 435 Output Total 400 Balance 1890 35 - Medications Medications: Current Medications Acetaminophen (Tylenol 325mg Tab) 650 mg PO Q6 PRN PRN Reason: Fever >100.4 F Clotrimazole (Lotrimin 1%) 1 gm TOP BID [facility] Last Admin: 12/10/16 12:38 Dose: Not Given Famotidine (Pepcid) 20 mg PO DAILY PRN PRN Reason: Heartburn Last Admin: 12/09/16 10:44 Dose: 20 mg Gabapentin (Neurontin) 600 mg PO BID [facility] Last Admin: 12/10/16 10:00 Dose: Not Given Glipizide (Glucotrol) 10 mg PO BID [facility] Hydralazine HCl (Apresoline) 10 mg IVP Q6H PRN PRN Reason: Shortness of Breath Hydrochlorothiazide (Microzide) 12.5 mg PO DAILY [facility] Last Admin: 12/10/16 10:00 Dose: Not Given Hydromorphone HCl (Dilaudid) 1 mg IVP Q4H PRN PRN Reason: Pain, severe (8-10) Piperacillin Sod/Tazobactam Sod (Zosyn 3.375 Gm Iv Premix) 3.375 gm in 50 mls @ 100 mls/hr IVPB Q6H [facility] Last Admin: 12/10/16 12:41 Dose: Not Given Vancomycin/Sodium Chloride (Vancocin) 1 gm in 200 mls @ 133 mls/hr IVPB DAILY [facility] Stop: 12/14/16 10:01 Last Admin: 12/10/16 09:15 Dose: Not Given Alteplase, Recombinant 20 mg/ (Sodium Chloride) 500 mls @ 25 mls/hr IV .Q20H [facility] Stop: 12/11/16 12:00 Last Admin: 12/10/16 15:44 Dose: 25 mls/hr Heparin Sodium/Sodium Chloride (Heparin 97438 Units/250ml 1/2 Normal Saline) 25 ,000 units in 250 mls @ 5 mls/hr IV .Q24H PRN; Protocol PRN Reason: PROTOCOL Sodium Chloride (Sodium Chloride 0.9%) 1,000 mls @ 35 mls/hr IV .Q24H [facility] Last Admin: 12/10/16 16:20 Dose: 35 mls/hr Insulin Human Regular (Novolin R) 0 unit SC ACHS [facility] PRN Reason: Protocol Last Admin: 12/10/16 16:50 Dose: 2 unit Losartan Potassium (Cozaar) 50 mg PO DAILY [facility] Last Admin: 12/10/16 09:06 Dose: 50 mg Metoprolol Tartrate (Lopressor) 25 mg PO DAILY [facility] Last Admin: 12/10/16 09:06 Dose: 25 mg Mupirocin (Bactroban Ointment) 0 gm TOP BID [facility] Last Admin: 12/10/16 14:23 Dose: Not Given Nghij-3-Hqyy Ethyl Esters (Lovaza) 1 gm PO DAILY [facility] Last Admin: 12/10/16 10:00 Dose: Not Given Rosuvastatin Calcium (Crestor) 20 mg PO HS [facility] Last Admin: 12/09/16 22:17 Dose: 20 mg Saccharomyces Boulardii (Florastor) 250 mg PO DAILY [facility] Last Admin: 12/10/16 10:00 Dose: Not Given Sitagliptin Phosphate (Januvia) 100 mg PO DAILY [facility] Last Admin: 12/10/16 10:00 Dose: Not Given - Labs Labs: 12/10/16 07:40 12/10/16 07:40 PT 13.0 SECONDS (9.7-12.2) H 12/08/16 12:25 INR 1.2 12/08/16 12:25 APTT 35 SECONDS (21-34) H 12/08/16 12:25 - Constitutional Appears: Non-toxic, No Acute Distress - Head Exam Head Exam: NORMAL INSPECTION - Eye Exam Eye Exam: EOMI - ENT Exam ENT Exam: Mucous Membranes Moist - Respiratory Exam Respiratory Exam: Clear to Ausculation Bilateral, NORMAL BREATHING PATTERN. absent: Rales, Rhonchi, Wheezes - Cardiovascular Exam Cardiovascular Exam: REGULAR RHYTHM, +S1, +S2 - GI/Abdominal Exam GI & Abdominal Exam: Soft, Normal Bowel Sounds. absent: Distended, Firm, Guarding, Rigid, Tenderness, Rebound - Extremities Exam Extremities Exam: absent: Pedal Edema, Tenderness Additional comments: X on the foot denotes pulse by doppler - Neurological Exam Neurological Exam: Alert, Awake, Oriented x3 - Psychiatric Exam Psychiatric exam: Normal Affect, Normal Mood - Skin Skin Exam: Dry, Intact, Normal Color, Warm. absent: Pallor, Petechiae Assessment and Plan (1) Peripheral artery disease Assessment & Plan: * Cardiology (Dr. Antoine) on board-->help appreciated * Abdominal Angiography (12/08/16): essential unremarkable CT angiogram of abdomen /pelvis; right lower extremity Ct angiogram: proxminal SFA stent has significant in stenosis and is otherwise patent. Distal SFA stent extending the poplietal artery is occluded. Popliteal artery beyond the stent is severely stenotic. Run off shows patent anterior tibilar artery. Tibioperonal trunk is calcified. Peroneal artery is patent. Posterior tibial artery also believed to be patient. Left lower extremity: SFA tent extending from proximal SFA to the popliteal artery has significant in stent stenosis believed to patent. Severe stenosis of popliteal artery beyond the stent. Runoff shows a patent anterior tibilar artery calcification near the origin. Calcification with tibioperoneal trunk. Peroneal artery is patent. Occlusion of distal posterior tibial artery. * Lower extremity ultrasound (12/08/16) severely decreased perfusion of the right lower extremity, noted at the superficial femoral, poplitea, and tibilar artery levels. Left: this exam reveals severely decreased perfusion of the left lower extremity, noted at the superifical femoral, popliteal, and tibial artery levels * Patient is status post TPA-directed EKOS of left lower extremity POD 0. Per Dr. antoine, discontinue aspirin, plavix, and lovenox. Dr. Antoine will come tomorrow to assess for possible removal of catheter and possible start on Heparin drip. * Patient for possible peripheral angiogram for right lower extremity on Tuesday * Patient has prior of ballon angioplasty, angiojuet thrombectomy, and TPA for right lower extremity arterial occlusion in 03/2016 and prior peripheral vascular stents in 10/2015 Status: Chronic (2) Chronic kidney disease, stage 3 Assessment & Plan: Monitor BUN/Cr Patient follows-up with Dr. Coley as outpatient. Status: Chronic (3) CAD (coronary artery disease) Assessment & Plan: 12/10: Patient discontinued Aspirin, Plavix, and therapuetic Lovenox per Dr. Antoine. Will determine with Dr. Antoine when to re-start medications following procedure on Tuesday, November 13. Status: Chronic (4) Diabetes mellitus Assessment & Plan: 12/10: Patient's metformin held on admission; As outpatient, Patient takes Metformin 1000mg PO BID, Glipizide 10mg PO bid, Januvia 50mg PO daily as outpatient; c/w Accuchecks QAC and HS Hgba1c: 8.7 (10/04/16) Crestor 20mg POqHS Losartan 50mg PO daily Status: Chronic (5) HTN (hypertension) Assessment & Plan: Monitor vital signs Hydralazine 10mg IVQ6h PRN SBP>160 Cozaar 50mg PO daily Lopressor 25mg PO daily Pain control: Morphine 2mg IV 4h PRN moderate pain; Dilaudid 1mg IV q4H PRN severe pain Status: Chronic (6) Hyperlipidemia Assessment & Plan: 12/10:: Crestor 20mg POqHS; Lipid panel in AM Status: Chronic (7) History of deep vein thrombosis Assessment & Plan: 12/10: prior to admission on Eliquis for b/l dvts; diagnosed last year; will order for venous doppler b/l LE Status: Chronic (8) Ulcer of right ankle Assessment & Plan: 12/10: patient started on Zosyn and Vancomycin on admission to cover for cellulitis; and given Clotrimazole cream to cover for antifungal Consult: Dr. Ken Rocha (patient's podiatry) on board Patient is pending Xray r/o bone erosion 12/08/16 Blood Cultures: no growth after 24hours X2 Status: Acute (9) Prophylactic measure Assessment & Plan: s/p TPA directed EKOS (POD O) Pepcid 20mg PO daily for GI ppx Florastor 250mg PO bid Status: Acute
[2016-12-10 17:52] LABS: HEMOGLOBIN 10.2 g/dL (11.0-16.0); MEAN CORPUSCULAR HEMOGLOBIN 26.8 pg (27.0-31.0); MEAN CORPUSCULAR HGB CONC 33.1 g/dL (33.0-37.0); MEAN PLATELET VOLUME 9.7 fL (7.2-11.7); RBC 3.81 Mil/uL (3.80-5.20); RED CELL DISTRIBUTION WIDTH 13.6 % (11.5-14.5); WHITE BLOOD COUNT 5.4 K/uL (4.8-10.8)
[2016-12-10 17:59] LABS: ALBUMIN 3.5 g/dL (3.5-5.0)
[2016-12-10 18:01] LABS: GFR AFRICAN-AMERICAN > 60; GFR NON-AFRICAN AMERICAN > 60
[2016-12-10 18:02] LABS: ALB/GLOB RATIO 1.1 (1.0-2.1); ALT/SGPT 18 U/L (9-52); AST/SGOT 17 U/L (14-36); BLOOD UREA NITROGEN 8 mg/dL (7-17)
[2016-12-10 18:03] LABS: CALCIUM 8.9 mg/dl (8.6-10.4)
[2016-12-10] MEDS: HYDROmorphone 1 mg/ml ISec IVP PRN (20:25)
--- NOTE | 2016-12-10 22:39 | CP.PCM.PN ---
Subjective - Date & Time of Evaluation Date of Evaluation: 12/10/16 Time of Evaluation: 12:20 - Subjective Subjective: Patient s/p Peripheral angio Now on EKOS/Lytic therapy Monitor H/H and bleeding signs Objective - Vital Signs/Intake and Output Vital Signs (last 24 hours): Temp Pulse Resp BP Pulse Ox 98.8 F 93 H 15 117/53 L 88 L 12/10/16 20:00 12/10/16 21:18 12/10/16 21:18 12/10/16 21:18 12/10/16 21:18 Intake and Output: 12/10/16 12/11/16 18:59 06:59 Intake Total 615 345 Output Total 400 400 Balance 215 -55 - Medications Medications: Current Medications Acetaminophen (Tylenol 325mg Tab) 650 mg PO Q6 PRN PRN Reason: Fever >100.4 F Clotrimazole (Lotrimin 1%) 1 gm TOP BID COUNTS INCLUDE 234 BEDS AT THE [facility] Last Admin: 12/10/16 18:00 Dose: 1 applic Famotidine (Pepcid) 20 mg PO DAILY COUNTS INCLUDE 234 BEDS AT THE [facility] Gabapentin (Neurontin) 600 mg PO BID COUNTS INCLUDE 234 BEDS AT THE [facility] Last Admin: 12/10/16 19:13 Dose: 600 mg Glipizide (Glucotrol) 10 mg PO BID COUNTS INCLUDE 234 BEDS AT THE [facility] Hydralazine HCl (Apresoline) 10 mg IVP Q6H PRN PRN Reason: Shortness of Breath Hydrochlorothiazide (Microzide) 12.5 mg PO DAILY COUNTS INCLUDE 234 BEDS AT THE [facility] Last Admin: 12/10/16 10:00 Dose: Not Given Hydromorphone HCl (Dilaudid) 1 mg IVP Q4H PRN PRN Reason: Pain, severe (8-10) Last Admin: 12/10/16 20:25 Dose: 1 mg Piperacillin Sod/Tazobactam Sod (Zosyn 3.375 Gm Iv Premix) 3.375 gm in 50 mls @ 100 mls/hr IVPB Q6H COUNTS INCLUDE 234 BEDS AT THE [facility] Last Admin: 12/10/16 22:13 Dose: 100 mls/hr Vancomycin/Sodium Chloride (Vancocin) 1 gm in 200 mls @ 133 mls/hr IVPB DAILY COUNTS INCLUDE 234 BEDS AT THE [facility] Stop: 12/14/16 10:01 Last Admin: 12/10/16 09:15 Dose: Not Given Alteplase, Recombinant 20 mg/ (Sodium Chloride) 500 mls @ 25 mls/hr IV .Q20H COUNTS INCLUDE 234 BEDS AT THE [facility] Stop: 12/11/16 12:00 Last Admin: 12/10/16 15:44 Dose: 25 mls/hr Heparin Sodium/Sodium Chloride (Heparin 48384 Units/250ml 1/2 Normal Saline) 25 ,000 units in 250 mls @ 5 mls/hr IV .Q24H PRN; Protocol PRN Reason: PROTOCOL Last Admin: 12/10/16 14:00 Dose: 5 mls/hr Sodium Chloride (Sodium Chloride 0.9%) 1,000 mls @ 35 mls/hr IV .Q24H [facility] Last Admin: 12/10/16 16:20 Dose: 35 mls/hr Insulin Human Regular (Novolin R) 0 unit SC ACHS [facility] PRN Reason: Protocol Last Admin: 12/10/16 21:33 Dose: Not Given Losartan Potassium (Cozaar) 50 mg PO DAILY COUNTS INCLUDE 234 BEDS AT THE [facility] Last Admin: 12/10/16 09:06 Dose: 50 mg Metoprolol Tartrate (Lopressor) 25 mg PO DAILY COUNTS INCLUDE 234 BEDS AT THE [facility] Last Admin: 12/10/16 09:06 Dose: 25 mg Morphine Sulfate (Morphine) 2 mg IVP Q4 PRN PRN Reason: Pain, moderate (4-7) Last Admin: 12/10/16 18:15 Dose: 2 mg Mupirocin (Bactroban Ointment) 0 gm TOP BID COUNTS INCLUDE 234 BEDS AT THE [facility] Last Admin: 12/10/16 18:12 Dose: 1 applic Jbzli-3-Taga Ethyl Esters (Lovaza) 1 gm PO DAILY COUNTS INCLUDE 234 BEDS AT THE [facility] Last Admin: 12/10/16 10:00 Dose: Not Given Ondansetron HCl (Zofran Inj) 4 mg IVP Q6 PRN PRN Reason: Nausea/Vomiting Last Admin: 12/10/16 21:13 Dose: 4 mg Rosuvastatin Calcium (Crestor) 20 mg PO HS COUNTS INCLUDE 234 BEDS AT THE [facility] Last Admin: 12/10/16 22:13 Dose: 20 mg Saccharomyces Boulardii (Florastor) 250 mg PO DAILY COUNTS INCLUDE 234 BEDS AT THE [facility] Last Admin: 12/10/16 10:00 Dose: Not Given Sitagliptin Phosphate (Januvia) 100 mg PO DAILY COUNTS INCLUDE 234 BEDS AT THE [facility] Last Admin: 12/10/16 10:00 Dose: Not Given - Labs Labs: 12/10/16 17:39 12/10/16 17:39 PT 13.0 SECONDS (9.7-12.2) H 12/08/16 12:25 INR 1.2 12/08/16 12:25 APTT 35 SECONDS (21-34) H 12/08/16 12:25
[2016-12-11] MEDS: Piperacill/Tazo 3.375gm in Dex 3.375 GM/50 ML BAG IVPB SCH (05:15)
[2016-12-11 06:57] LABS: BASO % 0.5 % (0.0-2.0); EOS % 0.5 % (0.0-4.0); HEMOGLOBIN 9.4 g/dL (11.0-16.0); LYMPH # 0.9 K/uL (1.0-4.3); LYMPH % 15.7 % (20.0-40.0); MEAN CELL VOLUME 80.8 fL (81.0-99.0); MEAN CORPUSCULAR HEMOGLOBIN 27.1 pg (27.0-31.0); MEAN CORPUSCULAR HGB CONC 33.5 g/dL (33.0-37.0); MONO # 0.4 K/uL (0.0-0.8); MONO % 7.4 % (0.0-10.0); NEUT # 4.4 K/uL (1.8-7.0); NEUT % 75.9 % (50.0-75.0); RBC 3.46 Mil/uL (3.80-5.20); RED CELL DISTRIBUTION WIDTH 13.4 % (11.5-14.5); WHITE BLOOD COUNT 5.9 K/uL (4.8-10.8)
[2016-12-11 07:04] LABS: GFR AFRICAN-AMERICAN > 60; GFR NON-AFRICAN AMERICAN 55
[2016-12-11 07:05] LABS: ALT/SGPT 26 U/L (9-52); AST/SGOT 15 U/L (14-36); BLOOD UREA NITROGEN 13 mg/dL (7-17)
[2016-12-11 07:06] LABS: CALCIUM 8.2 mg/dl (8.6-10.4); MAGNESIUM 1.8 mg/dL (1.6-2.3)
[2016-12-11 07:21] LABS: HDL CHOLESTEROL 27 mg/dL (30-70)
[2016-12-11 07:31] LABS: LDL CHOLESTEROL 49 mg/dL (0-129)
[2016-12-11] MEDS: (Novolin R) Insulin Human Regular 100 units/ml vial SC SCH ×4 (07:35→22:22)
--- NOTE | 2016-12-11 08:18 | CP.PCM.PN ---
Subjective - Date & Time of Evaluation Date of Evaluation: 12/11/16 Time of Evaluation: 08:15 - Subjective Subjective: Medical Attending Note Follow-up: Severe peripheral artery disease, history of CAD, History of COPD, History of Recurrent DVT (on Eliquis; held on admission) Patient seen and examined this morning. Patient reports she has not had a bowel movement since Tuesday. Patient reports pain is better controlled. Patient denies acute complaints. Per discussion with day-time nurse, patient overnight was little bit anxious. Objective - Vital Signs/Intake and Output Vital Signs (last 24 hours): Temp Pulse Resp BP Pulse Ox 98.6 F 76 16 135/48 L 91 L 12/11/16 04:00 12/11/16 06:17 12/11/16 06:17 12/11/16 06:17 12/11/16 06:17 Intake and Output: 12/11/16 12/11/16 06:59 18:59 Intake Total 1180 Output Total 750 Balance 430 - Medications Medications: Current Medications Acetaminophen (Tylenol 325mg Tab) 650 mg PO Q6 PRN PRN Reason: Fever >100.4 F Bisacodyl (Dulcolax) 5 mg PO ONCE ONE Stop: 12/11/16 08:15 Clotrimazole (Lotrimin 1%) 1 gm TOP BID [facility] Last Admin: 12/10/16 18:00 Dose: 1 applic Famotidine (Pepcid) 20 mg PO DAILY [facility] Gabapentin (Neurontin) 600 mg PO BID [facility] Last Admin: 12/10/16 19:13 Dose: 600 mg Glipizide (Glucotrol) 10 mg PO BID [facility] Hydralazine HCl (Apresoline) 10 mg IVP Q6H PRN PRN Reason: Shortness of Breath Hydrochlorothiazide (Microzide) 12.5 mg PO DAILY [facility] Last Admin: 12/10/16 10:00 Dose: Not Given Hydromorphone HCl (Dilaudid) 1 mg IVP Q4H PRN PRN Reason: Pain, severe (8-10) Last Admin: 12/10/16 20:25 Dose: 1 mg Piperacillin Sod/Tazobactam Sod (Zosyn 3.375 Gm Iv Premix) 3.375 gm in 50 mls @ 100 mls/hr IVPB Q6H [facility] Last Admin: 12/11/16 05:15 Dose: 100 mls/hr Vancomycin/Sodium Chloride (Vancocin) 1 gm in 200 mls @ 133 mls/hr IVPB DAILY [facility] Stop: 12/14/16 10:01 Last Admin: 12/10/16 09:15 Dose: Not Given Alteplase, Recombinant 20 mg/ (Sodium Chloride) 500 mls @ 25 mls/hr IV .Q20H [facility] Stop: 12/11/16 12:00 Last Admin: 12/10/16 15:44 Dose: 25 mls/hr Heparin Sodium/Sodium Chloride (Heparin 46681 Units/250ml 1/2 Normal Saline) 25 ,000 units in 250 mls @ 5 mls/hr IV .Q24H PRN; Protocol PRN Reason: PROTOCOL Last Admin: 12/10/16 14:00 Dose: 5 mls/hr Sodium Chloride (Sodium Chloride 0.9%) 1,000 mls @ 35 mls/hr IV .Q24H [facility] Last Admin: 12/10/16 16:20 Dose: 35 mls/hr Insulin Human Regular (Novolin R) 0 unit SC ACHS [facility] PRN Reason: Protocol Last Admin: 12/10/16 21:33 Dose: Not Given Losartan Potassium (Cozaar) 50 mg PO DAILY [facility] Last Admin: 12/10/16 09:06 Dose: 50 mg Metoprolol Tartrate (Lopressor) 25 mg PO DAILY [facility] Last Admin: 12/10/16 09:06 Dose: 25 mg Morphine Sulfate (Morphine) 2 mg IVP Q4 PRN PRN Reason: Pain, moderate (4-7) Last Admin: 12/10/16 18:15 Dose: 2 mg Mupirocin (Bactroban Ointment) 0 gm TOP BID [facility] Last Admin: 12/10/16 18:12 Dose: 1 applic Nicotine (Nicoderm Cq) 1 patch TD DAILY [facility] Lsvsh-3-Ezpv Ethyl Esters (Lovaza) 1 gm PO DAILY [facility] Last Admin: 12/10/16 10:00 Dose: Not Given Ondansetron HCl (Zofran Inj) 4 mg IVP Q6 PRN PRN Reason: Nausea/Vomiting Last Admin: 12/10/16 21:13 Dose: 4 mg Rosuvastatin Calcium (Crestor) 20 mg PO [facility] Last Admin: 12/10/16 22:13 Dose: 20 mg Saccharomyces Boulardii (Florastor) 250 mg PO DAILY [facility] Last Admin: 12/10/16 10:00 Dose: Not Given Sitagliptin Phosphate (Januvia) 100 mg PO DAILY [facility] Last Admin: 12/10/16 10:00 Dose: Not Given - Labs Labs: 12/11/16 06:46 12/11/16 06:46 PT 13.0 SECONDS (9.7-12.2) H 12/08/16 12:25 INR 1.2 12/08/16 12:25 APTT 35 SECONDS (21-34) H 12/08/16 12:25 - Constitutional Appears: Non-toxic, No Acute Distress - Head Exam Head Exam: NORMAL INSPECTION - Eye Exam Eye Exam: EOMI - ENT Exam ENT Exam: Mucous Membranes Dry - Respiratory Exam Respiratory Exam: NORMAL BREATHING PATTERN. absent: Respiratory Distress, Stridor - Cardiovascular Exam Cardiovascular Exam: REGULAR RHYTHM, +S1, +S2 - GI/Abdominal Exam GI & Abdominal Exam: Distended, Soft, Normal Bowel Sounds. absent: Firm, Guarding, Rigid, Tenderness, Rebound - Extremities Exam Extremities Exam: Pedal Edema. absent: Tenderness - Neurological Exam Neurological Exam: Alert, Awake, Oriented x3 - Skin Skin Exam: Dry, Intact, Normal Color, Warm Assessment and Plan (1) Peripheral artery disease Status: Acute (2) Chronic kidney disease, stage 3 Status: Chronic (3) CAD (coronary artery disease) Status: Chronic (4) Diabetes mellitus Status: Chronic (5) HTN (hypertension) Status: Chronic (6) Hyperlipidemia Status: Chronic (7) History of deep vein thrombosis Status: Chronic (8) Ulcer of right ankle Status: Acute (9) Prophylactic measure Status: Acute - Assessment and Plan (Free Text) Assessment: (1) Peripheral artery disease Assessment & Plan: * Cardiology (Dr. Antoine) on board-->help appreciated * Abdominal Angiography (12/08/16): essential unremarkable CT angiogram of abdomen /pelvis; right lower extremity Ct angiogram: proxminal SFA stent has significant in stenosis and is otherwise patent. Distal SFA stent extending the poplietal artery is occluded. Popliteal artery beyond the stent is severely stenotic. Run off shows patent anterior tibilar artery. Tibioperonal trunk is calcified. Peroneal artery is patent. Posterior tibial artery also believed to be patient. Left lower extremity: SFA tent extending from proximal SFA to the popliteal artery has significant in stent stenosis believed to patent. Severe stenosis of popliteal artery beyond the stent. Runoff shows a patent anterior tibilar artery calcification near the origin. Calcification with tibioperoneal trunk. Peroneal artery is patent. Occlusion of distal posterior tibial artery. * Lower extremity ultrasound (12/08/16) severely decreased perfusion of the right lower extremity, noted at the superficial femoral, poplitea, and tibilar artery levels. Left: this exam reveals severely decreased perfusion of the left lower extremity, noted at the superifical femoral, popliteal, and tibial artery levels * Patient is status post TPA-directed EKOS of left lower extremity POD 1. Per Dr. antoine, discontinue aspirin, plavix, and lovenox. * Dr. Antoine will come in today to assess for possible removal of catheter and possible start on Heparin drip. * Patient for possible peripheral angiogram for right lower extremity on Tuesday * Patient has prior of balloon angioplasty, angiojet thrombectomy, and TPA for right lower extremity arterial occlusion in 03/2016 and prior peripheral vascular stents in 10/2015 Status: Chronic (2) Chronic kidney disease, stage 3 Assessment & Plan: * Monitor BUN/Cr * Patient follows-up with Dr. Coley as outpatient. Status: Chronic (3) CAD (coronary artery disease) Assessment & Plan: * 12/11: pending discussion with cardiology to determine when to re-start Aspirin , Plavix, and home medication Eliquis for recurrrent DVT * 12/10: Patient discontinued Aspirin, Plavix, and therapuetic Lovenox per Dr. Antoine. Will determine with Dr. Antoine when to re-start medications following procedure on Tuesday, November 13. Status: Chronic (4) Diabetes mellitus Assessment & Plan: * 12/11: monitor accuchecks QAc and HS; held Januvia 50mg PO daily given patient is NPO * 12/10: Patient's metformin held on admission; As outpatient, Patient takes Metformin 1000mg PO BID, Glipizide 10mg PO bid, Januvia 50mg PO daily as outpatient; c/w Accuchecks QAC and HS * Hgba1c: 8.7 (10/04/16), c/w Crestor 20mg POqHS and Losartan 50mg PO daily; Lipid Panel: T chol:98 LDL:49 HDL: 27 Status: Chronic (5) HTN (hypertension) Assessment & Plan: * 12/11: better control; continue to monitor * Monitor vital signs * Hydralazine 10mg IVQ6h PRN SBP>160 * Cozaar 50mg PO daily * Lopressor 25mg PO daily * Pain control: Morphine 2mg IV 4h PRN moderate pain; Dilaudid 1mg IV q4H PRN severe pain Status: Chronic (6) Hyperlipidemia Assessment & Plan: 12/11 continue current management 12/10:: Crestor 20mg POqHS; Lipid panel in AM Status: Chronic (7) History of deep vein thrombosis Assessment & Plan: 12/11: possible patient to be started on heparin drip per cardiology 12/10: prior to admission on Eliquis for b/l dvts; diagnosed last year; will order for venous doppler b/l LE Status: Chronic (8) Ulcer of right ankle Assessment & Plan: 12/11 d/c IV antibiotics; no improvement in erythema; c/w Bactroban d/c Clotrimazole 12/10: patient started on Zosyn and Vancomycin on admission to cover for cellulitis; and given Clotrimazole cream to cover for antifungal Consult: Dr. Ken Rocha (patient's podiatry) on board Patient is pending Xray r/o bone erosion 12/08/16 Blood Cultures: no growth after 24hours X2 Status: Acute (9) Prophylactic measure Assessment & Plan: s/p TPA directed EKOS (POD O) Pepcid 20mg PO daily for GI ppx Florastor 250mg PO bid Anticoagulation per cardiology post-procedure Status: Acute
[2016-12-11] MEDS ORDERED: Bisacodyl 5mg EC Tab PO ONE (08:30)
--- NOTE | 2016-12-11 09:28 | CP.CCUPN ---
CCU Subjective - Physician Review Events Since Last Encounter (Free Text): 12/11/16 09:27 The Patient was seen and examined at the bedside, Medical records reviewed, all clinical/lab/hemodynamic/radiographic data were reviewed and management issues were discussed and formulated, Events reviewed 66 year old female with PMHx of HTN, HLD, DM, H/O of DVT on Eliquis, CAD s/p stent and PVD S/p B/L stents, Who was admitted to hospital for worsening claudication POD #1 s/p SFA thrombolysis with EKOS catheter placement L groin dressing bloody- EKOS catheter in place with TPA, heparin and coolant running. Doing well, pain controlled with dilauded Will Discontinue morphine and add Tylenol for mild pain. BP high, will increase the HCTZ to 25 mg daily, continue all other antihypertensive Stable renal function Blood Sugar acceptable CCU Objective - Vital Signs / Intake & Output Vital Signs (Last 4 hours): Vital Signs Temp Pulse Resp BP Pulse Ox 12/11/16 08:18 86 16 155/63 H 12/11/16 08:00 99 F 86 11 L 94 L 12/11/16 07:17 81 13 144/54 L 97 12/11/16 07:00 81 13 91 L 12/11/16 06:17 76 16 135/48 L 91 L 12/11/16 06:00 80 14 127/58 L 92 L Intake and Output (Last 8hrs): Intake & Output 12/10/16 12/11/16 12/11/16 22:59 06:59 14:59 Intake Total 720 770 130 Output Total 450 300 Balance 270 470 130 Intake: Intake, IV Amount 570 620 130 Left Femoral 280 280 70 Left Femoral#2 40 40 10 Left Femoral#3 200 200 50 Left Forearm 50 100 Oral 150 150 Output: Urine 300 300 Urine, Voided 300 300 Emesis 150 - Physical Exam Head: Positive for: Atraumatic, Normocephalic Pupils: Positive for: PERRL Extroacular Muscles: Positive for: EOMI Conjunctiva: Positive for: Normal Ears: Positive for: Normal Mouth: Positive for: Moist Mucous Membranes Neck: Positive for: Normal Range of Motion, Trachea Midline. Negative for: Meningeal Signs, MIDLINE TENDERNESS, Paraspinal Tenderness, JVD, Lymphadenopathy , Bruit, Other Respiratory/Chest: Positive for: Clear to Auscultation, Good Air Exchange. Negative for: Respiratory Distress, Accessory Muscle Use Cardiovascular: Positive for: Regular Rate and Rhythm, Normal S1, S2, Peripheal Pulses Present. Negative for: Murmurs Abdomen: Positive for: Normal Bowel Sounds. Negative for: Tenderness, Distention Upper Extremity: Positive for: Normal Inspection. Negative for: Cyanosis, Edema Lower Extremity: Positive for: Normal Inspection, Other (L groin dressing bloody - EKOS catheter in place with TPA, heparin and coolant running.). Negative for : Edema, CALF TENDERNESS, NORMAL PULSES (Only dopplerable) Neurological: Positive for: GCS=15, CN II-XII Intact, Speech Normal, Motor Func Grossly Intact, Normal Sensory Function Psychiatric: Positive for: Alert, Oriented x 3 - Medications Active Medications: Active Medications Generic Name Dose Route Start Last Admin Trade Name Freq PRN Reason Stop Dose Admin Acetaminophen 650 mg 12/08/16 15:57 Tylenol 325mg Tab PO Q6 PRN Fever >100.4 F Clotrimazole 1 gm 12/08/16 18:15 12/10/16 18:00 Lotrimin 1% TOP 1 applic BID PERRY Administration Famotidine 20 mg 12/11/16 10:00 Pepcid PO DAILY PERRY Gabapentin 600 mg 12/08/16 18:00 12/10/16 19:13 Neurontin PO 600 mg BID PERRY Administration Glipizide 10 mg 12/08/16 18:00 Glucotrol PO BID PERRY Hydralazine HCl 10 mg 12/10/16 17:11 Apresoline IVP Q6H PRN Shortness of Breath Hydrochlorothiazide 12.5 mg 12/09/16 10:00 12/10/16 10:00 Microzide PO Not Given DAILY PERRY Hydromorphone HCl 1 mg 12/10/16 17:15 12/10/16 20:25 Dilaudid IVP 1 mg Q4H PRN Administration Pain, severe (8-10) Alteplase, Recombinant 20 mg/ 500 mls @ 25 mls/hr 12/10/16 11:24 12/10/16 15: 44 Sodium Chloride IV 12/11/16 12:00 25 mls/hr .Q20H PERRY Administration Heparin Sodium/Sodium Chloride 25,000 units in 250 mls @ 5 mls/hr 07/07/17 15: 35 12/10/16 14:00 Heparin 04514 Units/250ml 1/2 Normal Saline IV 5 mls/hr .Q24H PRN Administration PROTOCOL Protocol Sodium Chloride 1,000 mls @ 35 mls/hr 12/10/16 16:00 12/10/16 16:20 Sodium Chloride 0.9% IV 35 mls/hr .Q24H PERRY Administration Insulin Human Regular 0 unit 12/08/16 22:00 12/11/16 07:35 Novolin R SC Not Given ACHS PERRY Protocol Losartan Potassium 50 mg 12/09/16 10:00 12/10/16 09:06 Cozaar PO 50 mg DAILY PERRY Administration Metoprolol Tartrate 25 mg 12/09/16 10:00 12/10/16 09:06 Lopressor PO 25 mg DAILY PERRY Administration Morphine Sulfate 2 mg 12/10/16 17:17 12/10/16 18:15 Morphine IVP 2 mg Q4 PRN Administration Pain, moderate (4-7) Mupirocin 0 gm 12/10/16 10:00 12/10/16 18:12 Bactroban Ointment TOP 1 applic BID PERRY Administration Nicotine 1 patch 12/11/16 10:00 Nicoderm Cq TD DAILY PERRY [id number] Ethyl Esters 1 gm 12/10/16 10:00 12/10/16 10:00 Lovaza PO Not Given DAILY PERRY Ondansetron HCl 4 mg 12/10/16 20:57 12/10/16 21:13 Zofran Inj IVP 4 mg Q6 PRN Administration Nausea/Vomiting Rosuvastatin Calcium 20 mg 12/08/16 22:00 12/10/16 22:13 Crestor PO 20 mg HS PERRY Administration Saccharomyces Boulardii 250 mg 12/09/16 10:00 12/10/16 10:00 Florastor PO Not Given DAILY PERRY Sitagliptin Phosphate 100 mg 12/09/16 10:00 12/10/16 10:00 Januvia PO Not Given DAILY PRERY - Patient Studies Lab Studies: Microbiology Studies 12/08/16 19:30 Blood Culture - Preliminary Blood NO GROWTH AFTER 48 HOURS 12/08/16 19:50 Blood Culture - Preliminary Blood NO GROWTH AFTER 48 HOURS Lab Studies 12/11/16 12/11/16 12/11/16 Range/Units 07:21 06:46 06:46 WBC (4.8-10.8) K/uL RBC (3.80-5.20) Mil/uL Hgb (11.0-16.0) g/dL Hct (34.0-47.0) % MCV (81.0-99.0) fL MCH (27.0-31.0) pg MCHC (33.0-37.0) g/dL RDW (11.5-14.5) % Plt Count (130-400) K/uL MPV (7.2-11.7) fL Neut % (Auto) (50.0-75.0) % Lymph % (Auto) (20.0-40.0) % Haywood % (Auto) (0.0-10.0) % Eos % (Auto) (0.0-4.0) % Baso % (Auto) (0.0-2.0) % Neut # (1.8-7.0) K/uL Lymph # (1.0-4.3) K/uL Haywood # (0.0-0.8) K/uL Eos # (0.0-0.7) K/uL Baso # (0.0-0.2) K/uL Differential Comment Sodium 138 (132-148) mmol/L Potassium 3.7 (3.6-5.2) mmol/L Chloride 105 (98-107) mmol/L Carbon Dioxide 24 (22-30) mmol/L Anion Gap 13 (10-20) BUN 13 (7-17) mg/dL Creatinine 1.0 (0.7-1.2) MG/DL Est GFR ( Amer) > 60 Est GFR (Non-Af Amer) 55 POC Glucose (mg/dL) 150 H (65-110) mg/dL Random Glucose 147 H (65-105) mg/dL Calcium 8.2 L (8.6-10.4) mg/dl Phosphorus 5.1 H (2.5-4.5) mg/dL Magnesium 1.8 (1.6-2.3) mg/dL Total Bilirubin 0.6 (0.2-1.3) mg/dL AST 15 (14-36) U/L ALT 26 (9-52) U/L Alkaline Phosphatase 60 (38-126) U/L Total Protein 6.0 L (6.3-8.3) g/dL Albumin 3.0 L (3.5-5.0) g/dL Globulin 2.9 (2.2-3.9) gm/dL Albumin/Globulin Ratio 1.0 (1.0-2.1) Triglycerides 128 (0-149) mg/dL Cholesterol 98 (0-199) mg/dL LDL Cholesterol Direct 49 (0-129) mg/dL HDL Cholesterol 27 L (30-70) mg/dL Blood Type Antibody Screen 12/11/16 12/10/16 12/10/16 Range/Units 06:46 21:21 17:39 WBC 5.9 (4.8-10.8) K/uL RBC 3.46 L (3.80-5.20) Mil/uL Hgb 9.4 L (11.0-16.0) g/dL Hct 28.0 L (34.0-47.0) % MCV 80.8 L (81.0-99.0) fL MCH 27.1 (27.0-31.0) pg MCHC 33.5 (33.0-37.0) g/dL RDW 13.4 (11.5-14.5) % Plt Count 118 L (130-400) K/uL MPV 10.0 (7.2-11.7) fL Neut % (Auto) 75.9 H (50.0-75.0) % Lymph % (Auto) 15.7 L (20.0-40.0) % Haywood % (Auto) 7.4 (0.0-10.0) % Eos % (Auto) 0.5 (0.0-4.0) % Baso % (Auto) 0.5 (0.0-2.0) % Neut # 4.4 (1.8-7.0) K/uL Lymph # 0.9 L (1.0-4.3) K/uL Haywood # 0.4 (0.0-0.8) K/uL Eos # 0.0 (0.0-0.7) K/uL Baso # 0.0 (0.0-0.2) K/uL Differential Comment Sodium (132-148) mmol/L Potassium (3.6-5.2) mmol/L Chloride (98-107) mmol/L Carbon Dioxide (22-30) mmol/L Anion Gap (10-20) BUN (7-17) mg/dL Creatinine (0.7-1.2) MG/DL Est GFR ( Amer) Est GFR (Non-Af Amer) POC Glucose (mg/dL) 213 H (65-110) mg/dL Random Glucose (65-105) mg/dL Calcium (8.6-10.4) mg/dl Phosphorus (2.5-4.5) mg/dL Magnesium (1.6-2.3) mg/dL Total Bilirubin (0.2-1.3) mg/dL AST (14-36) U/L ALT (9-52) U/L Alkaline Phosphatase (38-126) U/L Total Protein (6.3-8.3) g/dL Albumin (3.5-5.0) g/dL Globulin (2.2-3.9) gm/dL Albumin/Globulin Ratio (1.0-2.1) Triglycerides (0-149) mg/dL Cholesterol (0-199) mg/dL LDL Cholesterol Direct (0-129) mg/dL HDL Cholesterol (30-70) mg/dL Blood Type B POSITIVE Antibody Screen Negative 12/10/16 12/10/16 12/10/16 Range/Units 17:39 17:39 16:45 WBC 5.4 (4.8-10.8) K/uL RBC 3.81 (3.80-5.20) Mil/uL Hgb 10.2 L (11.0-16.0) g/dL Hct 30.9 L (34.0-47.0) % MCV 81.0 (81.0-99.0) fL MCH 26.8 L (27.0-31.0) pg MCHC 33.1 (33.0-37.0) g/dL RDW 13.6 (11.5-14.5) % Plt Count 127 L (130-400) K/uL MPV 9.7 (7.2-11.7) fL Neut % (Auto) (50.0-75.0) % Lymph % (Auto) (20.0-40.0) % Haywood % (Auto) (0.0-10.0) % Eos % (Auto) (0.0-4.0) % Baso % (Auto) (0.0-2.0) % Neut # (1.8-7.0) K/uL Lymph # (1.0-4.3) K/uL Haywood # (0.0-0.8) K/uL Eos # (0.0-0.7) K/uL Baso # (0.0-0.2) K/uL Differential Comment Sodium 142 (132-148) mmol/L Potassium 4.4 (3.6-5.2) mmol/L Chloride 107 (98-107) mmol/L Carbon Dioxide 26 (22-30) mmol/L Anion Gap 14 (10-20) BUN 8 (7-17) mg/dL Creatinine 0.7 (0.7-1.2) MG/DL Est GFR ( Amer) > 60 Est GFR (Non-Af Amer) > 60 POC Glucose (mg/dL) 206 H (65-110) mg/dL Random Glucose 149 H (65-105) mg/dL Calcium 8.9 (8.6-10.4) mg/dl Phosphorus (2.5-4.5) mg/dL Magnesium (1.6-2.3) mg/dL Total Bilirubin 0.8 (0.2-1.3) mg/dL AST 17 (14-36) U/L ALT 18 (9-52) U/L Alkaline Phosphatase 65 (38-126) U/L Total Protein 6.6 (6.3-8.3) g/dL Albumin 3.5 (3.5-5.0) g/dL Globulin 3.1 (2.2-3.9) gm/dL Albumin/Globulin Ratio 1.1 (1.0-2.1) Triglycerides (0-149) mg/dL Cholesterol (0-199) mg/dL LDL Cholesterol Direct (0-129) mg/dL HDL Cholesterol (30-70) mg/dL Blood Type Antibody Screen 12/10/16 Range/Units 07:40 WBC (4.8-10.8) K/uL RBC (3.80-5.20) Mil/uL Hgb (11.0-16.0) g/dL Hct 29.7 L (34.0-47.0) % MCV 80.6 L (81.0-99.0) fL MCH 26.8 L (27.0-31.0) pg MCHC 33.2 (33.0-37.0) g/dL RDW 13.3 (11.5-14.5) % Plt Count 127 L (130-400) K/uL MPV 9.8 (7.2-11.7) fL Neut % (Auto) 67.4 (50.0-75.0) % Lymph % (Auto) 20.1 (20.0-40.0) % Haywood % (Auto) 9.2 (0.0-10.0) % Eos % (Auto) 2.6 (0.0-4.0) % Baso % (Auto) 0.7 (0.0-2.0) % Neut # 2.7 (1.8-7.0) K/uL Lymph # 0.8 L (1.0-4.3) K/uL Haywood # 0.4 (0.0-0.8) K/uL Eos # 0.1 (0.0-0.7) K/uL Baso # 0.0 (0.0-0.2) K/uL Differential Comment Sodium (132-148) mmol/L Potassium (3.6-5.2) mmol/L Chloride (98-107) mmol/L Carbon Dioxide (22-30) mmol/L Anion Gap (10-20) BUN (7-17) mg/dL Creatinine (0.7-1.2) MG/DL Est GFR ( Amer) Est GFR (Non-Af Amer) POC Glucose (mg/dL) (65-110) mg/dL Random Glucose (65-105) mg/dL Calcium (8.6-10.4) mg/dl Phosphorus (2.5-4.5) mg/dL Magnesium (1.6-2.3) mg/dL Total Bilirubin (0.2-1.3) mg/dL AST (14-36) U/L ALT (9-52) U/L Alkaline Phosphatase (38-126) U/L Total Protein (6.3-8.3) g/dL Albumin (3.5-5.0) g/dL Globulin (2.2-3.9) gm/dL Albumin/Globulin Ratio (1.0-2.1) Triglycerides (0-149) mg/dL Cholesterol (0-199) mg/dL LDL Cholesterol Direct (0-129) mg/dL HDL Cholesterol (30-70) mg/dL Blood Type Antibody Screen Laboratory Results - last 24 hr 12/10/16 12/10/16 12/10/16 07:40 16:45 17:39 WBC 5.4 RBC 3.81 Hgb 10.2 L Hct 29.7 L 30.9 L MCV 80.6 L 81.0 MCH 26.8 L 26.8 L MCHC 33.2 33.1 RDW 13.3 13.6 Plt Count 127 L 127 L MPV 9.8 9.7 Neut % (Auto) 67.4 Lymph % (Auto) 20.1 Haywood % (Auto) 9.2 Eos % (Auto) 2.6 Baso % (Auto) 0.7 Neut # 2.7 Lymph # 0.8 L Haywood # 0.4 Eos # 0.1 Baso # 0.0 Differential Comment Sodium Potassium Chloride Carbon Dioxide Anion Gap BUN Creatinine Est GFR ( Amer) Est GFR (Non-Af Amer) POC Glucose (mg/dL) 206 H Random Glucose Calcium Phosphorus Magnesium Total Bilirubin AST ALT Alkaline Phosphatase Total Protein Albumin Globulin Albumin/Globulin Ratio Triglycerides Cholesterol LDL Cholesterol Direct HDL Cholesterol Blood Type Antibody Screen 12/10/16 12/10/16 12/10/16 17:39 17:39 21:21 WBC RBC Hgb Hct MCV MCH MCHC RDW Plt Count MPV Neut % (Auto) Lymph % (Auto) Haywood % (Auto) Eos % (Auto) Baso % (Auto) Neut # Lymph # Haywood # Eos # Baso # Differential Comment Sodium 142 Potassium 4.4 Chloride 107 Carbon Dioxide 26 Anion Gap 14 BUN 8 Creatinine 0.7 Est GFR ( Amer) > 60 Est GFR (Non-Af Amer) > 60 POC Glucose (mg/dL) 213 H Random Glucose 149 H Calcium 8.9 Phosphorus Magnesium Total Bilirubin 0.8 AST 17 ALT 18 Alkaline Phosphatase 65 Total Protein 6.6 Albumin 3.5 Globulin 3.1 Albumin/Globulin Ratio 1.1 Triglycerides Cholesterol LDL Cholesterol Direct HDL Cholesterol Blood Type B POSITIVE Antibody Screen Negative 12/11/16 12/11/16 12/11/16 06:46 06:46 06:46 WBC 5.9 RBC 3.46 L Hgb 9.4 L Hct 28.0 L MCV 80.8 L MCH 27.1 MCHC 33.5 RDW 13.4 Plt Count 118 L MPV 10.0 Neut % (Auto) 75.9 H Lymph % (Auto) 15.7 L Haywood % (Auto) 7.4 Eos % (Auto) 0.5 Baso % (Auto) 0.5 Neut # 4.4 Lymph # 0.9 L Haywood # 0.4 Eos # 0.0 Baso # 0.0 Differential Comment Sodium 138 Potassium 3.7 Chloride 105 Carbon Dioxide 24 Anion Gap 13 BUN 13 Creatinine 1.0 Est GFR ( Amer) > 60 Est GFR (Non-Af Amer) 55 POC Glucose (mg/dL) Random Glucose 147 H Calcium 8.2 L Phosphorus 5.1 H Magnesium 1.8 Total Bilirubin 0.6 AST 15 ALT 26 Alkaline Phosphatase 60 Total Protein 6.0 L Albumin 3.0 L Globulin 2.9 Albumin/Globulin Ratio 1.0 Triglycerides 128 Cholesterol 98 LDL Cholesterol Direct 49 HDL Cholesterol 27 L Blood Type Antibody Screen 12/11/16 07:21 WBC RBC Hgb Hct MCV MCH MCHC RDW Plt Count MPV Neut % (Auto) Lymph % (Auto) Haywood % (Auto) Eos % (Auto) Baso % (Auto) Neut # Lymph # Haywood # Eos # Baso # Differential Comment Sodium Potassium Chloride Carbon Dioxide Anion Gap BUN Creatinine Est GFR ( Amer) Est GFR (Non-Af Amer) POC Glucose (mg/dL) 150 H Random Glucose Calcium Phosphorus Magnesium Total Bilirubin AST ALT Alkaline Phosphatase Total Protein Albumin Globulin Albumin/Globulin Ratio Triglycerides Cholesterol LDL Cholesterol Direct HDL Cholesterol Blood Type Antibody Screen Fingerstick Blood Sugar Results: 150 Review of Systems - Cardiovascular Cardiovascular: absent: As Per HPI, Acrocyanosis, Chest Pain, Chest Pain at Rest , Chest Pain with Activity, Claudication, Diaphoresis, Dyspnea, Dyspnea on Exertion, Edema, Irregular Heart Rhythm, Pain Radiating to Arm/Neck/Jaw, Leg Edema, Leg Ulcers, Lightheadedness, Orthopnea, Palpitations, Paroxysmal Nocturnal Dyspnea, Pedal Edema, Radiating Pain, Rapid Heart Rate, Slow Heart Rate, Syncope, Other, UNREMARKABLE - Respiratory Respiratory: absent: As Per HPI, Cough, Dyspnea, Hemoptysis, Dyspnea on Exertion , Wheezing, Snoring, Stridor, Pain on Inspiration, Chest Congestion, Excessive Mucous Production, Change in Mucous Color, Pain with Coughing, Other, UNREMARKABLE Critical Care Progress Note - Nutrition Nutrition: Nutrition Category Date Time Status NPO Diet [DIET] Diets 12/10/16 Dinner Active Assessment/Plan (1) Peripheral artery disease Current Visit: Yes Status: Acute Priority: High (2) COPD (chronic obstructive pulmonary disease) Current Visit: No Status: Acute Comment: Stable Continue bronchodilators (3) Occlusion of right femoral artery Current Visit: No Status: Acute (4) CAD (coronary artery disease) Current Visit: No Status: Chronic Comment: Patient on Asprin 81mg Plavix 75mg Crestor 20mg (5) Diabetes mellitus Current Visit: No Status: Chronic Comment: Metoformin is held for now due to Creatine at 1.7. Januvia 100mg Glipizide 5mg RISS with accu checks (6) HTN (hypertension) Current Visit: No Status: Chronic Comment: Cozaar 50mg PO daily Lopressor 25mg PO daily Increase HCTZ dose Monitor BP (7) Hyperlipidemia Current Visit: No Status: Chronic Comment: Patient on Crestor 10mg (8) Chronic kidney disease, stage 3 Current Visit: Yes Status: Chronic (9) Prophylactic measure Current Visit: No Status: Acute Comment: with hold SCDs on right leg due to lower extremity swelling, rule out DVT before we started that. Hold chemical VTE due to large hematoma on her left thigh and abdomen area. Protonix 40 PO - Assessment and Plan (Free Text) Assessment: POD #1 s/p L SFA thrombolysis with EKOS catheter placement, Catheter will be removed today and she is scheduled for R sided thrombolysis with EKOS catheter placementon tuesday
[2016-12-11] MEDS: Saccharomyces Boulardi 250 mg Cap PO SCH (09:40)
[2016-12-11] MEDS: HYDROmorphone 1 mg/ml ISec IVP PRN (09:41)
[2016-12-11] MEDS: ALTEPLASE IV SCH (09:49)
[2016-12-11] MEDS: SODIUM CHLORIDE 0.9% IV SCH (09:49)
[2016-12-11] MEDS: Omega-3-Acid Ethyl Esters 1 GM Cap PO SCH (09:51)
[2016-12-11] MEDS ORDERED: Omega-3-Acid Ethyl Esters 1 GM Cap PO SCH (10:00)
[2016-12-11] MEDS ORDERED: Lidocaine 2% Inj (20ml) ONE (11:31)
[2016-12-11] MEDS: Sodium Chloride 0.9% 1,000 ML IV SCH (13:05)
--- NOTE | 2016-12-11 15:49 | CP.PCM.PN ---
<Hassan,Marilujenniferpj - Last Filed: 12/11/16 15:46> Subjective - Date & Time of Evaluation Date of Evaluation: 12/11/16 Time of Evaluation: 13:49 - Subjective Subjective: 66 y/o female seen at bedside for right ankle ulceration and redness. Pt is AAOx3 and is in NAD. Pt is currently having a vascular procedure done at bedside. Pt denies of any recent F/N/V/C/SOB. Objective - Vital Signs/Intake and Output Vital Signs (last 24 hours): Temp Pulse Resp BP Pulse Ox 99 F 86 16 153/63 H 94 L 12/11/16 08:00 12/11/16 08:18 12/11/16 08:18 12/11/16 09:40 12/11/16 08:00 Intake and Output: 12/11/16 12/11/16 06:59 18:59 Intake Total 1180 130 Output Total 750 Balance 430 130 - Medications Medications: Current Medications Acetaminophen (Tylenol 325mg Tab) 650 mg PO Q6 PRN PRN Reason: Pain, Mild (1-3) Diphenhydramine HCl (Benadryl) 25 mg PO Q8H PRN PRN Reason: itchiness Famotidine (Pepcid) 20 mg PO DAILY [facility] Last Admin: 12/11/16 09:40 Dose: 20 mg Gabapentin (Neurontin) 600 mg PO BID [facility] Last Admin: 12/11/16 10:55 Dose: 600 mg Glipizide (Glucotrol) 10 mg PO BID [facility] Hydralazine HCl (Apresoline) 10 mg IVP Q6H PRN PRN Reason: Shortness of Breath Hydrochlorothiazide (Hydrodiuril) 25 mg PO DAILY [facility] Hydromorphone HCl (Dilaudid) 1 mg IVP Q4H PRN PRN Reason: Pain, severe (8-10) Last Admin: 12/11/16 09:41 Dose: 1 mg Sodium Chloride (Sodium Chloride 0.9%) 1,000 mls @ 60 mls/hr IV .[id number] [facility] Stop: 12/12/16 13:01 Last Admin: 12/11/16 13:05 Dose: 60 mls/hr Insulin Human Regular (Novolin R) 0 unit SC ACHS [facility] PRN Reason: Protocol Last Admin: 12/11/16 11:50 Dose: Not Given Losartan Potassium (Cozaar) 50 mg PO DAILY [facility] Last Admin: 12/11/16 09:40 Dose: 50 mg Metoprolol Tartrate (Lopressor) 25 mg PO DAILY [facility] Last Admin: 12/11/16 09:40 Dose: 25 mg Mupirocin (Bactroban Ointment) 0 gm TOP BID [facility] Last Admin: 12/11/16 10:56 Dose: 1 applic Nicotine (Nicoderm Cq) 1 patch TD DAILY [facility] Last Admin: 12/11/16 10:55 Dose: 1 patch [id number] Ethyl Esters (Lovaza) 1 gm PO DAILY [facility] Last Admin: 12/11/16 09:51 Dose: 1 gm Ondansetron HCl (Zofran Inj) 4 mg IVP Q6 PRN PRN Reason: Nausea/Vomiting Last Admin: 12/10/16 21:13 Dose: 4 mg Rosuvastatin Calcium (Crestor) 20 mg PO HS [facility] Last Admin: 12/10/16 22:13 Dose: 20 mg Saccharomyces Boulardii (Florastor) 250 mg PO DAILY [facility] Last Admin: 12/11/16 09:40 Dose: 250 mg Sitagliptin Phosphate (Januvia) 100 mg PO DAILY [facility] Last Admin: 12/11/16 09:50 Dose: Not Given - Labs Labs: 12/11/16 06:46 12/11/16 06:46 PT 13.0 SECONDS (9.7-12.2) H 12/08/16 12:25 INR 1.2 12/08/16 12:25 APTT 35 SECONDS (21-34) H 12/08/16 12:25 - Constitutional Appears: Well, Non-toxic, No Acute Distress - Extremities Exam Additional comments: Right LE focused exam: VASC: DP/PT pulses are faintly palpable 1/4, TALENT MANAGER: < 3 sec to all digits, TG: warm to cool, no pitting or non-pitting edema was observed DERM: Right ankle ulceration noted at the medial malleolus with periwound sloughing of the superficial skin due to dry scaly skin, no fluccuance and probe to bone noted. no active drainage, no malodor, resolving erythema noted on the medial ankle and distal medial leg NEURO: Protective sensation grossly intact ORTHO: no pain or tenderness on the palpation of the medial ankle - Neurological Exam Neurological Exam: Alert, Normal Gait, Oriented x3 - Psychiatric Exam Psychiatric exam: Normal Affect, Normal Mood Assessment and Plan - Assessment and Plan (Free Text) Assessment: 66 y/o female seen at bedside for 1). right ankle ulcer, 2). PVD and 3). Cellulitis Plan: Pt evaluated and chart reviewed Pt discussed with attending Dr. Rocha Labs and vitals reviewed (Afebrile, WBC @ 5.9) Will continue to monitor the cellulitis of the right medial ankle while patient in house <Nelson Rocha - Last Filed: 12/13/16 08:23> Objective - Vital Signs/Intake and Output Vital Signs (last 24 hours): Temp Pulse Resp BP Pulse Ox 98.3 F 74 13 122/51 L 92 L 12/13/16 04:00 12/13/16 07:00 12/13/16 07:00 12/13/16 06:27 12/13/16 07:00 Intake and Output: 12/13/16 12/13/16 06:59 18:59 Intake Total 710 0 Output Total 800 Balance -90 0 - Medications Medications: Current Medications Acetaminophen (Tylenol 325mg Tab) 650 mg PO Q6 PRN PRN Reason: Pain, Mild (1-3) Aspirin (Ecotrin) 81 mg PO DAILY [facility] Last Admin: 12/12/16 11:06 Dose: 81 mg Clopidogrel Bisulfate (Plavix) 75 mg PO DAILY [facility] Last Admin: 12/12/16 11:10 Dose: 75 mg Diphenhydramine HCl (Benadryl) 25 mg PO Q8H PRN PRN Reason: itchiness Last Admin: 12/12/16 18:34 Dose: 25 mg Famotidine (Pepcid) 20 mg PO DAILY [facility] Last Admin: 12/12/16 11:10 Dose: 20 mg Gabapentin (Neurontin) 600 mg PO BID [facility] Last Admin: 12/12/16 17:01 Dose: 600 mg Glipizide (Glucotrol) 10 mg PO BID [facility] Hydralazine HCl (Apresoline) 10 mg IVP Q6H PRN PRN Reason: Shortness of Breath Hydrochlorothiazide (Hydrodiuril) 25 mg PO DAILY [facility] Last Admin: 12/12/16 11:18 Dose: 25 mg Hydromorphone HCl (Dilaudid) 1 mg IVP Q4H PRN PRN Reason: Pain, severe (8-10) Last Admin: 12/12/16 21:41 Dose: 1 mg Piperacillin Sod/Tazobactam Sod (Zosyn 3.375 Gm Iv Premix) 3.375 gm in 50 mls @ 100 mls/hr IVPB Q8H [facility] Last Admin: 12/13/16 05:22 Dose: 100 mls/hr Vancomycin/Sodium Chloride (Vancocin) 1 gm in 200 mls @ 133.333 mls/hr IVPB Q24H [facility] Stop: 12/17/16 21:31 Last Admin: 12/12/16 21:42 Dose: 133.333 mls/hr Insulin Human Regular (Novolin R) 0 unit SC ACHS [facility] PRN Reason: Protocol Last Admin: 12/13/16 07:57 Dose: 2 unit Losartan Potassium (Cozaar) 50 mg PO DAILY [facility] Last Admin: 12/12/16 11:05 Dose: 50 mg Metoprolol Tartrate (Lopressor) 25 mg PO DAILY [facility] Last Admin: 12/12/16 11:14 Dose: 25 mg Mupirocin (Bactroban Ointment) 0 gm TOP BID [facility] Last Admin: 12/12/16 17:01 Dose: 1 applic Nicotine (Nicoderm Cq) 1 patch TD DAILY [facility] Last Admin: 12/12/16 11:08 Dose: 1 patch [id number] Ethyl Esters (Lovaza) 1 gm PO DAILY [facility] Last Admin: 12/12/16 11:11 Dose: 1 gm Ondansetron HCl (Zofran Inj) 4 mg IVP Q6 PRN PRN Reason: Nausea/Vomiting Last Admin: 12/10/16 21:13 Dose: 4 mg Rosuvastatin Calcium (Crestor) 20 mg PO HS [facility] Last Admin: 12/12/16 21:40 Dose: 20 mg Saccharomyces Boulardii (Florastor) 250 mg PO DAILY [facility] Last Admin: 12/12/16 11:06 Dose: 250 mg Sitagliptin Phosphate (Januvia) 100 mg PO DAILY [facility] Last Admin: 12/12/16 11:15 Dose: 100 mg - Labs Labs: 12/13/16 06:18 12/13/16 06:18 PT 13.0 SECONDS (9.7-12.2) H 07/05/17 12:25 INR 1.2 12/08/16 12:25 APTT 35 SECONDS (21-34) H 12/08/16 12:25 Attending/Attestation - Attestation I have fully participated in the care of the patient.: Yes I have reviewed all pertinent clinical information, including history, physical exam and plan: Yes
--- NOTE | 2016-12-11 18:21 | RAD ---
Right ankle three views History: Cellulitis. Comparison: None available. Findings: Diffuse soft tissue swelling consistent with known cellulitis. Diffuse osteopenia. Mild medial malleolar soft tissue swelling. Narrowing of the tibiotalar joint space. Extensive curvilinear calcifications throughout the soft tissues suggestive for vascular calcifications. Prominent plantar calcaneal spurring. Prominent bony productive changes in the midfoot which may be the sequelae of degenerative versus neuropathic change; however, an acute infectious and or inflammatory process cannot be excluded. Clinical correlation. Impression: Diffuse soft tissue swelling consistent with known cellulitis. Diffuse osteopenia. Mild medial malleolar soft tissue swelling. Narrowing of the tibiotalar joint space. Extensive curvilinear calcifications throughout the soft tissues suggestive for vascular calcifications. Prominent plantar calcaneal spurring. Prominent bony productive changes in the midfoot which may be the sequelae of degenerative versus neuropathic change; however, an acute infectious and or inflammatory process cannot be excluded. Clinical correlation.
[2016-12-11] MEDS ORDERED: Enoxaparin 80 mg Syringe SC SCH (22:00)
[2016-12-12 06:33] LABS: BASO % 0.7 % (0.0-2.0); EOS # 0.1 K/uL (0.0-0.7); EOS % 1.6 % (0.0-4.0); HEMOGLOBIN 8.3 g/dL (11.0-16.0); LYMPH % 20.3 % (20.0-40.0); MEAN CELL VOLUME 80.7 fL (81.0-99.0); MEAN CORPUSCULAR HEMOGLOBIN 26.7 pg (27.0-31.0); MEAN PLATELET VOLUME 9.8 fL (7.2-11.7); MONO # 0.5 K/uL (0.0-0.8); MONO % 9.2 % (0.0-10.0); NEUT # 3.4 K/uL (1.8-7.0); NEUT % 68.2 % (50.0-75.0); RBC 3.1 Mil/uL (3.80-5.20); RED CELL DISTRIBUTION WIDTH 13.5 % (11.5-14.5)
[2016-12-12] MEDS: Sodium Chloride 0.9% 1,000 ML IV SCH (06:47)
[2016-12-12 06:48] LABS: ALBUMIN 2.9 g/dL (3.5-5.0)
[2016-12-12 06:51] LABS: AST/SGOT 15 U/L (14-36); GFR AFRICAN-AMERICAN > 60; GFR NON-AFRICAN AMERICAN 55
[2016-12-12 06:52] LABS: ALB/GLOB RATIO 1.1 (1.0-2.1); ALT/SGPT 21 U/L (9-52); BLOOD UREA NITROGEN 15 mg/dL (7-17)
[2016-12-12 06:53] LABS: MAGNESIUM 1.9 mg/dL (1.6-2.3)
[2016-12-12] MEDS: (Novolin R) Insulin Human Regular 100 units/ml vial SC SCH ×4 (08:10→21:43)
--- NOTE | 2016-12-12 09:20 | CP.PCM.PN ---
Subjective - Date & Time of Evaluation Date of Evaluation: 12/12/16 Time of Evaluation: 09:15 - Subjective Subjective: Medical Attending Note: Follow-up: Severe peripheral artery disease, history of CAD, History of COPD, History of Recurrent DVT (prior Eliquis; held on admission) Patient seen and examined this morning. Patient denies pain. Patient denies acute complaints. Objective - Vital Signs/Intake and Output Vital Signs (last 24 hours): Temp Pulse Resp BP Pulse Ox 98.0 F 96 H 20 167/64 H 94 L 12/12/16 04:00 12/12/16 07:27 12/12/16 07:27 12/12/16 07:27 12/12/16 07:27 Intake and Output: 12/12/16 12/12/16 06:59 18:59 Intake Total 720 60 Output Total 900 250 Balance -180 -190 - Medications Medications: Current Medications Acetaminophen (Tylenol 325mg Tab) 650 mg PO Q6 PRN PRN Reason: Pain, Mild (1-3) Aspirin (Ecotrin) 81 mg PO DAILY [facility] Last Admin: 12/11/16 18:02 Dose: 81 mg Clopidogrel Bisulfate (Plavix) 75 mg PO DAILY [facility] Last Admin: 12/11/16 18:02 Dose: 75 mg Diphenhydramine HCl (Benadryl) 25 mg PO Q8H PRN PRN Reason: itchiness Last Admin: 12/11/16 16:28 Dose: 25 mg Enoxaparin Sodium (Lovenox) 80 mg SC Q12 [facility] Last Admin: 12/11/16 22:44 Dose: 80 mg Famotidine (Pepcid) 20 mg PO DAILY [facility] Last Admin: 12/11/16 09:40 Dose: 20 mg Gabapentin (Neurontin) 600 mg PO BID [facility] Last Admin: 12/11/16 17:21 Dose: 600 mg Glipizide (Glucotrol) 10 mg PO BID [facility] Hydralazine HCl (Apresoline) 10 mg IVP Q6H PRN PRN Reason: Shortness of Breath Hydrochlorothiazide (Hydrodiuril) 25 mg PO DAILY [facility] Hydromorphone HCl (Dilaudid) 1 mg IVP Q4H PRN PRN Reason: Pain, severe (8-10) Last Admin: 12/11/16 09:41 Dose: 1 mg Sodium Chloride (Sodium Chloride 0.9%) 1,000 mls @ 60 mls/hr IV .[id number] [facility] Stop: 12/12/16 13:01 Last Admin: 12/12/16 06:47 Dose: 60 mls/hr Insulin Human Regular (Novolin R) 0 unit SC ACHS [facility] PRN Reason: Protocol Last Admin: 12/12/16 08:10 Dose: 1 unit Losartan Potassium (Cozaar) 50 mg PO DAILY [facility] Last Admin: 12/11/16 09:40 Dose: 50 mg Metoprolol Tartrate (Lopressor) 25 mg PO DAILY [facility] Last Admin: 12/11/16 09:40 Dose: 25 mg Mupirocin (Bactroban Ointment) 0 gm TOP BID [facility] Last Admin: 12/11/16 17:22 Dose: 1 applic Nicotine (Nicoderm Cq) 1 patch TD DAILY [facility] Last Admin: 12/11/16 10:55 Dose: 1 patch Vceyw-4-Pduv Ethyl Esters (Lovaza) 1 gm PO DAILY [facility] Last Admin: 12/11/16 09:51 Dose: 1 gm Ondansetron HCl (Zofran Inj) 4 mg IVP Q6 PRN PRN Reason: Nausea/Vomiting Last Admin: 12/10/16 21:13 Dose: 4 mg Rosuvastatin Calcium (Crestor) 20 mg PO HS [facility] Last Admin: 12/11/16 22:45 Dose: 20 mg Saccharomyces Boulardii (Florastor) 250 mg PO DAILY [facility] Last Admin: 12/11/16 09:40 Dose: 250 mg Sitagliptin Phosphate (Januvia) 100 mg PO DAILY [facility] Last Admin: 12/11/16 09:50 Dose: Not Given - Labs Labs: 12/12/16 06:24 12/12/16 06:22 PT 13.0 SECONDS (9.7-12.2) H 12/08/16 12:25 INR 1.2 12/08/16 12:25 APTT 35 SECONDS (21-34) H 12/08/16 12:25 - Constitutional Appears: Non-toxic, No Acute Distress - Head Exam Head Exam: NORMAL INSPECTION - Eye Exam Eye Exam: EOMI - Respiratory Exam Respiratory Exam: Clear to Ausculation Bilateral. absent: Respiratory Distress - Cardiovascular Exam Cardiovascular Exam: Tachycardia, +S1, +S2 - GI/Abdominal Exam GI & Abdominal Exam: Soft, Normal Bowel Sounds. absent: Distended, Firm, Guarding, Rigid, Tenderness, Rebound - Extremities Exam Additional comments: Ecchymoses over the abdomen, groin, and left lower extremity as it meets the groin Dressing over the left groin: dressing; dirty/intact - Neurological Exam Neurological Exam: Alert, Awake, Oriented x3 - Skin Skin Exam: Dry, Intact, Warm Additional comments: Ecchymoses over the groin, abdomen, and extremities Assessment and Plan (1) Peripheral artery disease Status: Acute (2) Chronic kidney disease, stage 3 Status: Chronic (3) CAD (coronary artery disease) Status: Chronic (4) Diabetes mellitus Status: Chronic (5) HTN (hypertension) Status: Chronic (6) Hyperlipidemia Status: Chronic (7) History of deep vein thrombosis Status: Chronic (8) Ulcer of right ankle Status: Acute (9) Prophylactic measure Status: Acute - Assessment and Plan (Free Text) Assessment: (1) Peripheral artery disease Assessment & Plan: * 12/12: Discussed with Dr. Alvarado, he will take the patient at 2pm for balloon angioplasty and stent on Tuesday, 12/13 for right lower extremity. He is requesting for the patient to continue Aspirin 81mg Po daily, Plavix 75mg PO daily, and continue therapuetic Lovenox. Patient to receive last dose of all three tomorrow on Tuesday, 12/13. Patient to be NPO after breakfast * Medications: Aspirin 81mg PO daily, Plavix 75mg PO daily, therapeutic lovenox * Cardiology (Dr. Alvarado) on board-->help appreciated * Abdominal Angiography (12/08/16): essential unremarkable CT angiogram of abdomen /pelvis; right lower extremity Ct angiogram: proxminal SFA stent has significant in stenosis and is otherwise patent. Distal SFA stent extending the poplietal artery is occluded. Popliteal artery beyond the stent is severely stenotic. Run off shows patent anterior tibilar artery. Tibioperonal trunk is calcified. Peroneal artery is patent. Posterior tibial artery also believed to be patient. Left lower extremity: SFA tent extending from proximal SFA to the popliteal artery has significant in stent stenosis believed to patent. Severe stenosis of popliteal artery beyond the stent. Runoff shows a patent anterior tibilar artery calcification near the origin. Calcification with tibioperoneal trunk. Peroneal artery is patent. Occlusion of distal posterior tibial artery. * Lower extremity ultrasound (12/08/16) severely decreased perfusion of the right lower extremity, noted at the superficial femoral, poplitea, and tibilar artery levels. Left: this exam reveals severely decreased perfusion of the left lower extremity, noted at the superifical femoral, popliteal, and tibial artery levels * Patient is status post TPA-directed EKOS of left lower extremity POD 2. * History of: Patient has prior of balloon angioplasty, angiojet thrombectomy, and TPA for right lower extremity arterial occlusion in 03/2016 and prior peripheral vascular stents in 10/2015 Status: Acute (2) Anemia Assessment & Plan: * History of Anemia; copy of patient's history provided by primary (in chart) * Acute on Chronic Anemia * 12/12: monitor H/H; slowly downtrending. Patient is currently Aspirin 81mg PO daily, Plavix 75mg PO daily, and therapuetic Lovenox. Patient has ecchymoses over the groin and abdomen status post procedure. Monitor. Status: Acute (3) Chronic kidney disease, stage 3 Assessment & Plan: * Monitor BUN/Cr * Patient follows-up with Dr. Coley as outpatient. Status: Chronic (4) CAD (coronary artery disease) Assessment & Plan: * 12/12: Patient to continue Aspirin 81mg PO daily, Plavix 75mg PO daily; per cardiology. * 12/11: pending discussion with cardiology to determine when to re-start Aspirin , Plavix, and home medication Eliquis for recurrrent DVT * 12/10: Patient discontinued Aspirin, Plavix, and therapuetic Lovenox per Dr. Alvarado. Will determine with Dr. Alvarado when to re-start medications following procedure on Tuesday, November 13. Status: Chronic (5) Diabetes mellitus Assessment & Plan: * 12/12: Patient is eating; will resume Januvia 50mg PO daily; hold Metformin and Glipizide for anticipated procedure tomorrow * 12/11: monitor accuchecks QAc and HS; held Januvia 50mg PO daily given patient is NPO * 12/10: Patient's metformin held on admission; As outpatient, Patient takes Metformin 1000mg PO BID, Glipizide 10mg PO bid, Januvia 50mg PO daily as outpatient; c/w Accuchecks QAC and HS * Hgba1c: 8.7 (10/04/16), c/w Crestor 20mg POqHS and Losartan 50mg PO daily; Lipid Panel: T chol:98 LDL:49 HDL: 27 Status: Chronic (6) HTN (hypertension) Assessment & Plan: * 12/12: continue current management * Monitor vital signs * Hydralazine 10mg IVQ6h PRN SBP>160 * Cozaar 50mg PO daily * Lopressor 25mg PO daily * Pain control: Morphine 2mg IV 4h PRN moderate pain; Dilaudid 1mg IV q4H PRN severe pain Status: Chronic (7) Hyperlipidemia Assessment & Plan: * 12/12 continue current management * Lipid Panel: T chol:98 LDL:49 HDL: 27 * Crestor 20mg POqHS Status: Chronic (8) History of deep vein thrombosis Assessment & Plan: * 12/12: Patient is currently on therapuetic Lovenox for peripheral arterial disease Status: Chronic (9) Ulcer of right ankle Assessment & Plan: * 12/12: will place wound care for the ulcer over the right ankle * 12/11 d/c IV antibiotics; no improvement in erythema; c/w Bactroban d/c Clotrimazole * 12/10: patient started on Zosyn and Vancomycin on admission to cover for cellulitis; and given Clotrimazole cream to cover for antifungal * Consult: Dr. Ken Rocha (patient's podiatry) on board * Patient is pending Xray r/o bone erosion * 12/08/16 Blood Cultures: no growth after 3 days X2 Status: Acute (10) Prophylactic measure Assessment & Plan: * s/p TPA directed EKOS (POD 2) for right lower extremity; no catheter; on therapeutic Lovenox/Aspirin/Plavix per cardiology * Pepcid 20mg PO daily for GI ppx * Florastor 250mg PO bid * Status: Acute Disposition: * Patient to have balloon angioplasty and stent placement for right lower extremity PAD with Dr. Alvarado on Tuesday, 12/13 at 2pm. Patient to continue Aspirin , Plavix, and therapuetic lovenox. Per Dr. Alvarado to receive all three tomorrow prior to procedure.
[2016-12-12] MEDS ORDERED: Enoxaparin 80 mg Syringe SC SCH (10:00)
[2016-12-12] MEDS: HYDROmorphone 1 mg/ml ISec IVP PRN ×2 (10:01→21:41)
[2016-12-12] MEDS: Saccharomyces Boulardi 250 mg Cap PO SCH (11:06)
[2016-12-12] MEDS: Omega-3-Acid Ethyl Esters 1 GM Cap PO SCH (11:11)
--- NOTE | 2016-12-12 13:04 | CP.PCM.PN ---
Subjective - Date & Time of Evaluation Date of Evaluation: 12/11/16 Time of Evaluation: 11:45 - Subjective Subjective: Patient seen and evaluated Says improved pain in Right leg Successful removal of EKOS catheter and arterial sheath No hematoma For [employer] Tuesday ASA, PLavix, Lovenox and IVF for now Objective - Vital Signs/Intake and Output Vital Signs (last 24 hours): Temp Pulse Resp BP Pulse Ox 98.1 F 87 15 143/59 L 95 12/12/16 12:00 12/12/16 12:27 12/12/16 12:27 12/12/16 12:27 12/12/16 12:27 Intake and Output: 12/12/16 12/12/16 06:59 18:59 Intake Total 720 710 Output Total 900 500 Balance -180 210 - Medications Medications: Current Medications Acetaminophen (Tylenol 325mg Tab) 650 mg PO Q6 PRN PRN Reason: Pain, Mild (1-3) Aspirin (Ecotrin) 81 mg PO DAILY [facility] Last Admin: 12/12/16 11:06 Dose: 81 mg Clopidogrel Bisulfate (Plavix) 75 mg PO DAILY [facility] Last Admin: 12/12/16 11:10 Dose: 75 mg Diphenhydramine HCl (Benadryl) 25 mg PO Q8H PRN PRN Reason: itchiness Last Admin: 12/11/16 16:28 Dose: 25 mg Famotidine (Pepcid) 20 mg PO DAILY [facility] Last Admin: 12/12/16 11:10 Dose: 20 mg Gabapentin (Neurontin) 600 mg PO BID [facility] Last Admin: 12/12/16 11:08 Dose: 600 mg Glipizide (Glucotrol) 10 mg PO BID [facility] Hydralazine HCl (Apresoline) 10 mg IVP Q6H PRN PRN Reason: Shortness of Breath Hydrochlorothiazide (Hydrodiuril) 25 mg PO DAILY [facility] Last Admin: 12/12/16 11:18 Dose: 25 mg Hydromorphone HCl (Dilaudid) 1 mg IVP Q4H PRN PRN Reason: Pain, severe (8-10) Last Admin: 12/12/16 10:01 Dose: 1 mg Insulin Human Regular (Novolin R) 0 unit SC ACHS [facility] PRN Reason: Protocol Last Admin: 12/12/16 12:02 Dose: 2 unit Losartan Potassium (Cozaar) 50 mg PO DAILY [facility] Last Admin: 12/12/16 11:05 Dose: 50 mg Metoprolol Tartrate (Lopressor) 25 mg PO DAILY [facility] Last Admin: 12/12/16 11:14 Dose: 25 mg Mupirocin (Bactroban Ointment) 0 gm TOP BID [facility] Last Admin: 12/12/16 11:19 Dose: 1 applic Nicotine (Nicoderm Cq) 1 patch TD DAILY [facility] Last Admin: 12/12/16 11:08 Dose: 1 patch Hduor-2-Uona Ethyl Esters (Lovaza) 1 gm PO DAILY [facility] Last Admin: 12/12/16 11:11 Dose: 1 gm Ondansetron HCl (Zofran Inj) 4 mg IVP Q6 PRN PRN Reason: Nausea/Vomiting Last Admin: 12/10/16 21:13 Dose: 4 mg Rosuvastatin Calcium (Crestor) 20 mg PO HS [facility] Last Admin: 12/11/16 22:45 Dose: 20 mg Saccharomyces Boulardii (Florastor) 250 mg PO DAILY [facility] Last Admin: 12/12/16 11:06 Dose: 250 mg Sitagliptin Phosphate (Januvia) 100 mg PO DAILY [facility] Last Admin: 12/12/16 11:15 Dose: 100 mg - Labs Labs: 12/12/16 06:24 12/12/16 06:22 PT 13.0 SECONDS (9.7-12.2) H 12/08/16 12:25 INR 1.2 12/08/16 12:25 APTT 35 SECONDS (21-34) H 12/08/16 12:25
--- NOTE | 2016-12-12 14:14 | CP.PCM.CON ---
History of Present Illness - History of Present Illness History of Present Illness: 66 yr old white female being seen for followup of ckd long hx of diabetes,hbp admitted with increaasing pain in legs hx of pvd withstents in both legs as well as angioplasty and thrombectomy ct angio done on 12/08 shows stenoses Review of Systems - Constitutional Constitutional: absent: Headache - EENT Ears: absent: Decreased Hearing - Cardiovascular Cardiovascular: absent: Chest Pain, Dyspnea, Edema, Lightheadedness - Respiratory Respiratory: absent: Cough, Dyspnea, Hemoptysis - Gastrointestinal Gastrointestinal: absent: Abdominal Pain, Constipation, Nausea, Vomiting - Genitourinary Genitourinary: absent: Dysuria, Hematuria, Urinary Incontinence - Neurological Neurological: absent: Dizziness Past Patient History - Infectious Disease Hx of Infectious Diseases: None - Past Medical History & Family History Past Medical History?: Yes Pertinent Family History: cad post ptca and stents dvt fgh diabetes - Past Social History Smoking Status: d/c 2 weeks ago Chewing Tobacco Use: No Cigar Use: No Alcohol: None Drugs: Denies - CARDIAC Hx Hypercholesterolemia: Yes Hx Hypertension: Yes - PULMONARY Hx Respiratory Disorders: No - HEENT Hx HEENT Problems: Yes (HOARSENESS) Hx Cataracts: Yes Other/Comment: WEARS GLASSES - ENDOCRINE/METABOLIC Hx Endocrine Disorders: Yes Hx Diabetes Mellitus Type 2: Yes - HEMATOLOGICAL/ONCOLOGICAL Hx Anemia: Yes - MUSCULOSKELETAL/RHEUMATOLOGICAL Hx Arthritis: Yes - PSYCHIATRIC Hx Substance Use: No - SURGICAL HISTORY Hx Coronary Stent: Yes (X1) Hx Tonsillectomy: Yes - ANESTHESIA Hx Anesthesia: Yes Hx Anesthesia Reactions: No Hx Malignant Hyperthermia: No Meds Allergies/Adverse Reactions: Allergies Allergy/AdvReac Type Severity Reaction Status Date / Time No Known Allergies Allergy Verified 12/08/16 10:21 - Medications Medications: Current Medications Acetaminophen (Tylenol 325mg Tab) 650 mg PO Q6 PRN PRN Reason: Pain, Mild (1-3) Aspirin (Ecotrin) 81 mg PO DAILY [facility] Last Admin: 12/12/16 11:06 Dose: 81 mg Clopidogrel Bisulfate (Plavix) 75 mg PO DAILY [facility] Last Admin: 12/12/16 11:10 Dose: 75 mg Diphenhydramine HCl (Benadryl) 25 mg PO Q8H PRN PRN Reason: itchiness Last Admin: 12/11/16 16:28 Dose: 25 mg Famotidine (Pepcid) 20 mg PO DAILY [facility] Last Admin: 12/12/16 11:10 Dose: 20 mg Gabapentin (Neurontin) 600 mg PO BID [facility] Last Admin: 12/12/16 11:08 Dose: 600 mg Glipizide (Glucotrol) 10 mg PO BID [facility] Hydralazine HCl (Apresoline) 10 mg IVP Q6H PRN PRN Reason: Shortness of Breath Hydrochlorothiazide (Hydrodiuril) 25 mg PO DAILY [facility] Last Admin: 12/12/16 11:18 Dose: 25 mg Hydromorphone HCl (Dilaudid) 1 mg IVP Q4H PRN PRN Reason: Pain, severe (8-10) Last Admin: 12/12/16 10:01 Dose: 1 mg Insulin Human Regular (Novolin R) 0 unit SC [facility] PRN Reason: Protocol Last Admin: 12/12/16 12:02 Dose: 2 unit Losartan Potassium (Cozaar) 50 mg PO DAILY [facility] Last Admin: 12/12/16 11:05 Dose: 50 mg Metoprolol Tartrate (Lopressor) 25 mg PO DAILY [facility] Last Admin: 12/12/16 11:14 Dose: 25 mg Mupirocin (Bactroban Ointment) 0 gm TOP BID [facility] Last Admin: 12/12/16 11:19 Dose: 1 applic Nicotine (Nicoderm Cq) 1 patch TD DAILY [facility] Last Admin: 12/12/16 11:08 Dose: 1 patch Rvjtg-4-Kxhe Ethyl Esters (Lovaza) 1 gm PO DAILY [facility] Last Admin: 12/12/16 11:11 Dose: 1 gm Ondansetron HCl (Zofran Inj) 4 mg IVP Q6 PRN PRN Reason: Nausea/Vomiting Last Admin: 12/10/16 21:13 Dose: 4 mg Rosuvastatin Calcium (Crestor) 20 mg PO HS [facility] Last Admin: 12/11/16 22:45 Dose: 20 mg Saccharomyces Boulardii (Florastor) 250 mg PO DAILY [facility] Last Admin: 12/12/16 11:06 Dose: 250 mg Sitagliptin Phosphate (Januvia) 100 mg PO DAILY [facility] Last Admin: 12/12/16 11:15 Dose: 100 mg Physical Exam - Constitutional Appears: Well, No Acute Distress - Eye Exam Eye Exam: absent: Conjunctival injection - ENT Exam ENT Exam: Mucous Membranes Moist - Respiratory Exam Respiratory Exam: Clear to Auscultation Bilateral, NORMAL BREATHING PATTERN - Cardiovascular Exam Cardiovascular Exam: REGULAR RHYTHM. absent: JVD - GI/Abdominal Exam GI & Abdominal Exam: Soft. absent: Distended, Tenderness - Extremities Exam Extremities exam: Negative for: calf tenderness - Back Exam Back exam: absent: CVA tenderness (L), CVA tenderness (R) - Neurological Exam Neurological exam: Alert Results - Vital Signs Recent Vital Signs: Last Vital Signs Temp 98.1 F 12/12/16 12:00 Pulse 101 H 12/12/16 13:27 Resp 15 12/12/16 13:27 BP 157/61 H 12/12/16 13:27 Pulse Ox 83 L 12/12/16 13:27 - Labs Result Diagrams: 12/12/16 06:24 12/12/16 06:22 Labs: Laboratory Results - last 24 hr 12/11/16 12/11/16 12/12/16 16:58 21:26 06:22 WBC RBC Hgb Hct MCV MCH MCHC RDW Plt Count MPV Neut % (Auto) Lymph % (Auto) Garland % (Auto) Eos % (Auto) Baso % (Auto) Neut # Lymph # [place] # Eos # Baso # Sodium 137 Potassium 3.6 Chloride 104 Carbon Dioxide 25 Anion Gap 12 BUN 15 Creatinine 1.0 Est GFR ( Amer) > 60 Est GFR (Non-Af Amer) 55 POC Glucose (mg/dL) 213 H 184 H Random Glucose 135 H Calcium 8.0 L Phosphorus 2.9 Magnesium 1.9 Total Bilirubin 0.7 AST 15 ALT 21 Alkaline Phosphatase 59 Total Protein 5.6 L Albumin 2.9 L Globulin 2.7 Albumin/Globulin Ratio 1.1 12/12/16 12/12/16 12/12/16 06:24 07:35 11:44 WBC 5.0 RBC 3.10 L Hgb 8.3 L Hct 25.0 L MCV 80.7 L MCH 26.7 L MCHC 33.0 RDW 13.5 Plt Count 103 L MPV 9.8 Neut % (Auto) 68.2 Lymph % (Auto) 20.3 Garland % (Auto) 9.2 Eos % (Auto) 1.6 Baso % (Auto) 0.7 Neut # 3.4 Lymph # 1.0 Garland # 0.5 Eos # 0.1 Baso # 0.0 Sodium Potassium Chloride Carbon Dioxide Anion Gap BUN Creatinine Est GFR ( Amer) Est GFR (Non-Af Amer) POC Glucose (mg/dL) 158 H 205 H Random Glucose Calcium Phosphorus Magnesium Total Bilirubin AST ALT Alkaline Phosphatase Total Protein Albumin Globulin Albumin/Globulin Ratio Assessment & Plan (1) CKD (chronic kidney disease) stage 2, GFR 60-89 ml/min Status: Acute (2) Peripheral artery disease Status: Acute Priority: High (3) History of deep vein thrombosis Status: Chronic (4) COPD (chronic obstructive pulmonary disease) Status: Acute (5) CAD (coronary artery disease) Status: Chronic (6) Diabetes mellitus Status: Chronic (7) HTN (hypertension) Status: Chronic (8) PVD (peripheral vascular disease) Status: Chronic - Assessment and Plan (Free Text) Plan: no evidence of contrast nephropathy continue to moniter [facility] review office records urine protein
--- NOTE | 2016-12-12 16:18 | CP.PCM.PN ---
<Marilu Hassanjenniferpj - Last Filed: 12/12/16 16:16> Subjective - Date & Time of Evaluation Date of Evaluation: 12/12/16 Time of Evaluation: 14:00 - Subjective Subjective: 66 y/o female seen at bedside for right ankle ulceration and redness. Pt is AAOx3 and is in NAD. Pt denies of any pain in her feet today. Pt denies of any acute overnight events. Pt denies of any recent F/N/V/C/SOB. Objective - Vital Signs/Intake and Output Vital Signs (last 24 hours): Temp Pulse Resp BP Pulse Ox 98.1 F 67 18 150/34 L 99 12/12/16 12:00 12/12/16 15:27 12/12/16 15:27 12/12/16 15:27 12/12/16 15:27 Intake and Output: 12/12/16 12/12/16 06:59 18:59 Intake Total 720 1090 Output Total 900 500 Balance -180 590 - Medications Medications: Current Medications Acetaminophen (Tylenol 325mg Tab) 650 mg PO Q6 PRN PRN Reason: Pain, Mild (1-3) Aspirin (Ecotrin) 81 mg PO DAILY [facility] Last Admin: 12/12/16 11:06 Dose: 81 mg Clopidogrel Bisulfate (Plavix) 75 mg PO DAILY [facility] Last Admin: 12/12/16 11:10 Dose: 75 mg Diphenhydramine HCl (Benadryl) 25 mg PO Q8H PRN PRN Reason: itchiness Last Admin: 12/11/16 16:28 Dose: 25 mg Famotidine (Pepcid) 20 mg PO DAILY [facility] Last Admin: 12/12/16 11:10 Dose: 20 mg Gabapentin (Neurontin) 600 mg PO BID [facility] Last Admin: 12/12/16 11:08 Dose: 600 mg Glipizide (Glucotrol) 10 mg PO BID [facility] Hydralazine HCl (Apresoline) 10 mg IVP Q6H PRN PRN Reason: Shortness of Breath Hydrochlorothiazide (Hydrodiuril) 25 mg PO DAILY [facility] Last Admin: 12/12/16 11:18 Dose: 25 mg Hydromorphone HCl (Dilaudid) 1 mg IVP Q4H PRN PRN Reason: Pain, severe (8-10) Last Admin: 12/12/16 10:01 Dose: 1 mg Insulin Human Regular (Novolin R) 0 unit SC ACHS [facility] PRN Reason: Protocol Last Admin: 12/12/16 12:02 Dose: 2 unit Losartan Potassium (Cozaar) 50 mg PO DAILY [facility] Last Admin: 12/12/16 11:05 Dose: 50 mg Metoprolol Tartrate (Lopressor) 25 mg PO DAILY [facility] Last Admin: 12/12/16 11:14 Dose: 25 mg Mupirocin (Bactroban Ointment) 0 gm TOP BID [facility] Last Admin: 12/12/16 11:19 Dose: 1 applic Nicotine (Nicoderm Cq) 1 patch TD DAILY [facility] Last Admin: 12/12/16 11:08 Dose: 1 patch [id number]-[id number] Ethyl Esters (Lovaza) 1 gm PO DAILY [facility] Last Admin: 12/12/16 11:11 Dose: 1 gm Ondansetron HCl (Zofran Inj) 4 mg IVP Q6 PRN PRN Reason: Nausea/Vomiting Last Admin: 12/10/16 21:13 Dose: 4 mg Rosuvastatin Calcium (Crestor) 20 mg PO HS [facility] Last Admin: 12/11/16 22:45 Dose: 20 mg Saccharomyces Boulardii (Florastor) 250 mg PO DAILY [facility] Last Admin: 12/12/16 11:06 Dose: 250 mg Sitagliptin Phosphate (Januvia) 100 mg PO DAILY [facility] Last Admin: 12/12/16 11:15 Dose: 100 mg - Labs Labs: 12/12/16 06:24 12/12/16 06:22 PT 13.0 SECONDS (9.7-12.2) H 12/08/16 12:25 INR 1.2 12/08/16 12:25 APTT 35 SECONDS (21-34) H 12/08/16 12:25 - Constitutional Appears: Well, Non-toxic, No Acute Distress - Extremities Exam Additional comments: Right LE focused exam: VASC: DP/PT pulses are faintly palpable 1/4, [employer] RADIAL: < 3 sec to all digits, TG: warm to cool, no pitting or non-pitting edema was observed DERM: Right ankle ulceration noted at the medial malleolus with periwound sloughing of the superficial skin due to dry scaly skin, no fluccuance and probe to bone noted. no active drainage, no malodor, resolving erythema from yesterday noted on the medial ankle and distal medial leg NEURO: Protective sensation grossly intact ORTHO: no pain or tenderness on the palpation of the medial ankle - Neurological Exam Neurological Exam: Alert, Awake, Oriented x3 - Psychiatric Exam Psychiatric exam: Normal Affect, Normal Mood Assessment and Plan - Assessment and Plan (Free Text) Assessment: 66 y/o female seen at bedside for 1). right ankle ulcer, 2). PVD and 3). Cellulitis Plan: Pt evaluated and chart reviewed Pt discussed with attending Dr. Rocha Labs and vitals reviewed (Afebrile, WBC @ 5.0) Will continue to monitor the cellulitis of the right medial ankle while patient in house <Nelson Rocha - Last Filed: 12/13/16 08:24> Objective - Vital Signs/Intake and Output Vital Signs (last 24 hours): Temp Pulse Resp BP Pulse Ox 98.3 F 74 13 122/51 L 92 L 12/13/16 04:00 12/13/16 07:00 12/13/16 07:00 12/13/16 06:27 12/13/16 07:00 Intake and Output: 12/13/16 12/13/16 06:59 18:59 Intake Total 710 0 Output Total 800 Balance -90 0 - Medications Medications: Current Medications Acetaminophen (Tylenol 325mg Tab) 650 mg PO Q6 PRN PRN Reason: Pain, Mild (1-3) Aspirin (Ecotrin) 81 mg PO DAILY [facility] Last Admin: 12/12/16 11:06 Dose: 81 mg Clopidogrel Bisulfate (Plavix) 75 mg PO DAILY [facility] Last Admin: 12/12/16 11:10 Dose: 75 mg Diphenhydramine HCl (Benadryl) 25 mg PO Q8H PRN PRN Reason: itchiness Last Admin: 12/12/16 18:34 Dose: 25 mg Famotidine (Pepcid) 20 mg PO DAILY [facility] Last Admin: 12/12/16 11:10 Dose: 20 mg Gabapentin (Neurontin) 600 mg PO BID [facility] Last Admin: 12/12/16 17:01 Dose: 600 mg Glipizide (Glucotrol) 10 mg PO BID [facility] Hydralazine HCl (Apresoline) 10 mg IVP Q6H PRN PRN Reason: Shortness of Breath Hydrochlorothiazide (Hydrodiuril) 25 mg PO DAILY [facility] Last Admin: 12/12/16 11:18 Dose: 25 mg Hydromorphone HCl (Dilaudid) 1 mg IVP Q4H PRN PRN Reason: Pain, severe (8-10) Last Admin: 12/12/16 21:41 Dose: 1 mg Piperacillin Sod/Tazobactam Sod (Zosyn 3.375 Gm Iv Premix) 3.375 gm in 50 mls @ 100 mls/hr IVPB Q8H [facility] Last Admin: 12/13/16 05:22 Dose: 100 mls/hr Vancomycin/Sodium Chloride (Vancocin) 1 gm in 200 mls @ 133.333 mls/hr IVPB Q24H [facility] Stop: 12/17/16 21:31 Last Admin: 12/12/16 21:42 Dose: 133.333 mls/hr Insulin Human Regular (Novolin R) 0 unit SC ACHS [facility] PRN Reason: Protocol Last Admin: 12/13/16 07:57 Dose: 2 unit Losartan Potassium (Cozaar) 50 mg PO DAILY [facility] Last Admin: 12/12/16 11:05 Dose: 50 mg Metoprolol Tartrate (Lopressor) 25 mg PO DAILY [facility] Last Admin: 12/12/16 11:14 Dose: 25 mg Mupirocin (Bactroban Ointment) 0 gm TOP BID [facility] Last Admin: 12/12/16 17:01 Dose: 1 applic Nicotine (Nicoderm Cq) 1 patch TD DAILY [facility] Last Admin: 12/12/16 11:08 Dose: 1 patch Rzlqy-0-Nret Ethyl Esters (Lovaza) 1 gm PO DAILY [facility] Last Admin: 12/12/16 11:11 Dose: 1 gm Ondansetron HCl (Zofran Inj) 4 mg IVP Q6 PRN PRN Reason: Nausea/Vomiting Last Admin: 12/10/16 21:13 Dose: 4 mg Rosuvastatin Calcium (Crestor) 20 mg PO HS [facility] Last Admin: 12/12/16 21:40 Dose: 20 mg Saccharomyces Boulardii (Florastor) 250 mg PO DAILY [facility] Last Admin: 12/12/16 11:06 Dose: 250 mg Sitagliptin Phosphate (Januvia) 100 mg PO DAILY [facility] Last Admin: 12/12/16 11:15 Dose: 100 mg - Labs Labs: 12/13/16 06:18 12/13/16 06:18 PT 13.0 SECONDS (9.7-12.2) H 12/08/16 12:25 INR 1.2 12/08/16 12:25 APTT 35 SECONDS (21-34) H 12/08/16 12:25 Attending/Attestation - Attestation I have fully participated in the care of the patient.: Yes I have reviewed all pertinent clinical information, including history, physical exam and plan: Yes
[2016-12-12] MEDS: Vancomycin 1 gm/NS 200 ml 1 GM/200 ML BAG IVPB SCH (21:42)
[2016-12-12] MEDS: Piperacill/Tazo 3.375gm in Dex 3.375 GM/50 ML BAG IVPB SCH (21:42)
--- NOTE | 2016-12-12 21:47 | CP.PCM.PN ---
Subjective - Date & Time of Evaluation Date of Evaluation: 12/12/16 Time of Evaluation: 17:30 - Subjective Subjective: Patient seen and evaluated Feels better For [employer] of right leg tomorrow NPO after breakfast tomorrow Objective - Vital Signs/Intake and Output Vital Signs (last 24 hours): Temp Pulse Resp BP Pulse Ox 98.6 F 73 20 130/51 L 98 12/12/16 20:00 12/12/16 20:27 12/12/16 20:27 12/12/16 20:27 12/12/16 20:00 Intake and Output: 12/12/16 12/13/16 18:59 06:59 Intake Total 1420 110 Output Total 870 Balance 550 110 - Medications Medications: Current Medications Acetaminophen (Tylenol 325mg Tab) 650 mg PO Q6 PRN PRN Reason: Pain, Mild (1-3) Aspirin (Ecotrin) 81 mg PO DAILY [facility] Last Admin: 12/12/16 11:06 Dose: 81 mg Clopidogrel Bisulfate (Plavix) 75 mg PO DAILY [facility] Last Admin: 12/12/16 11:10 Dose: 75 mg Diphenhydramine HCl (Benadryl) 25 mg PO Q8H PRN PRN Reason: itchiness Last Admin: 12/12/16 18:34 Dose: 25 mg Famotidine (Pepcid) 20 mg PO DAILY [facility] Last Admin: 12/12/16 11:10 Dose: 20 mg Gabapentin (Neurontin) 600 mg PO BID [facility] Last Admin: 12/12/16 17:01 Dose: 600 mg Glipizide (Glucotrol) 10 mg PO BID [facility] Hydralazine HCl (Apresoline) 10 mg IVP Q6H PRN PRN Reason: Shortness of Breath Hydrochlorothiazide (Hydrodiuril) 25 mg PO DAILY [facility] Last Admin: 12/12/16 11:18 Dose: 25 mg Hydromorphone HCl (Dilaudid) 1 mg IVP Q4H PRN PRN Reason: Pain, severe (8-10) Last Admin: 12/12/16 21:41 Dose: 1 mg Piperacillin Sod/Tazobactam Sod (Zosyn 3.375 Gm Iv Premix) 3.375 gm in 50 mls @ 100 mls/hr IVPB Q8H [facility] Last Admin: 12/12/16 21:42 Dose: 100 mls/hr Vancomycin/Sodium Chloride (Vancocin) 1 gm in 200 mls @ 133.333 mls/hr IVPB Q24H [facility] Stop: 12/17/16 21:31 Last Admin: 12/12/16 21:42 Dose: 133.333 mls/hr Insulin Human Regular (Novolin R) 0 unit SC ACHS [facility] PRN Reason: Protocol Last Admin: 12/12/16 21:43 Dose: Not Given Losartan Potassium (Cozaar) 50 mg PO DAILY [facility] Last Admin: 12/12/16 11:05 Dose: 50 mg Metoprolol Tartrate (Lopressor) 25 mg PO DAILY [facility] Last Admin: 12/12/16 11:14 Dose: 25 mg Mupirocin (Bactroban Ointment) 0 gm TOP BID [facility] Last Admin: 12/12/16 17:01 Dose: 1 applic Nicotine (Nicoderm Cq) 1 patch TD DAILY [facility] Last Admin: 12/12/16 11:08 Dose: 1 patch [id number] Ethyl Esters (Lovaza) 1 gm PO DAILY [facility] Last Admin: 12/12/16 11:11 Dose: 1 gm Ondansetron HCl (Zofran Inj) 4 mg IVP Q6 PRN PRN Reason: Nausea/Vomiting Last Admin: 12/10/16 21:13 Dose: 4 mg Rosuvastatin Calcium (Crestor) 20 mg PO HS [facility] Last Admin: 12/12/16 21:40 Dose: 20 mg Saccharomyces Boulardii (Florastor) 250 mg PO DAILY [facility] Last Admin: 12/12/16 11:06 Dose: 250 mg Sitagliptin Phosphate (Januvia) 100 mg PO DAILY [facility] Last Admin: 12/12/16 11:15 Dose: 100 mg - Labs Labs: 12/12/16 06:24 12/12/16 06:22 PT 13.0 SECONDS (9.7-12.2) H 12/08/16 12:25 INR 1.2 12/08/16 12:25 APTT 35 SECONDS (21-34) H 12/08/16 12:25
[2016-12-13] MEDS: Piperacill/Tazo 3.375gm in Dex 3.375 GM/50 ML BAG IVPB SCH ×3 (05:22→21:25)
[2016-12-13 06:28] LABS: BASO % 0.5 % (0.0-2.0); EOS # 0.1 K/uL (0.0-0.7); EOS % 2.8 % (0.0-4.0); HEMOGLOBIN 8.2 g/dL (11.0-16.0); LYMPH # 1.1 K/uL (1.0-4.3); MEAN CELL VOLUME 80.2 fL (81.0-99.0); MEAN CORPUSCULAR HEMOGLOBIN 26.7 pg (27.0-31.0); MEAN CORPUSCULAR HGB CONC 33.3 g/dL (33.0-37.0); MEAN PLATELET VOLUME 9.7 fL (7.2-11.7); MONO # 0.4 K/uL (0.0-0.8); MONO % 8.6 % (0.0-10.0); NEUT % 65.1 % (50.0-75.0); NRBC % 0.1 % (0.0-2.0); RBC 3.08 Mil/uL (3.80-5.20); RED CELL DISTRIBUTION WIDTH 13.8 % (11.5-14.5); WHITE BLOOD COUNT 4.6 K/uL (4.8-10.8)
[2016-12-13 06:44] LABS: ALBUMIN 2.9 g/dL (3.5-5.0)
[2016-12-13 06:47] LABS: CALCIUM 8.2 mg/dl (8.6-10.4)
[2016-12-13] MEDS: (Novolin R) Insulin Human Regular 100 units/ml vial SC SCH ×4 (07:57→21:55)
--- NOTE | 2016-12-13 08:08 | CP.CCUPN ---
<Cely Romero - Last Filed: 12/13/16 12:00> CCU Subjective - Physician Review Subjective (Free Text): 12/13/16 11:33 Patient seen and examined in the AM at bedside. Patient denies pain. Patient stated she slept well overnight. Patient denies shortness of breath, chest pain , nausea, vomiting, diarrhea or fever. Patient states she has not had a bowel movement since the middle of last week. CCU Objective - Vital Signs / Intake & Output Vital Signs (Last 4 hours): Vital Signs Pulse Resp BP Pulse Ox 12/13/16 07:00 74 13 92 L 12/13/16 06:27 71 14 122/51 L 93 L 12/13/16 06:00 74 13 93 L 12/13/16 05:27 80 12 161/52 H 97 12/13/16 05:00 78 13 87 L 12/13/16 04:27 74 12 144/57 L 95 Intake and Output (Last 8hrs): Intake & Output 12/12/16 12/13/16 12/13/16 22:59 06:59 14:59 Intake Total 850 250 0 Output Total 670 500 Balance 180 -250 0 Intake: Intake, IV Amount 550 50 Left Forearm 550 50 Oral 300 200 0 Output: Urine 670 500 Urine, Voided 670 500 Other: # Voids Urine, Voided 1 # Bowel Movements 0 - Physical Exam Head: Positive for: Atraumatic, Normocephalic Pupils: Positive for: PERRL Extroacular Muscles: Positive for: EOMI Conjunctiva: Positive for: Normal Ears: Positive for: Normal Mouth: Positive for: Moist Mucous Membranes Respiratory/Chest: Positive for: Clear to Auscultation, Good Air Exchange. Negative for: Respiratory Distress, Accessory Muscle Use, Wheezes, Rales Cardiovascular: Positive for: Regular Rate and Rhythm, Normal S1, S2, Peripheal Pulses Present. Negative for: Murmurs Abdomen: Positive for: Normal Bowel Sounds. Negative for: Tenderness, Distention Upper Extremity: Positive for: Normal Inspection. Negative for: Cyanosis, Edema Lower Extremity: Positive for: Normal Inspection, NORMAL PULSES, Other (L groin dressing bloody- EKOS catheter in place with TPA, heparin and coolant running.) . Negative for: Edema, CALF TENDERNESS Neurological: Positive for: Speech Normal Skin: Positive for: Warm, Dry, Rashes ( Right Medial Malleoli Eschar) Psychiatric: Positive for: Alert, Oriented x 3 - Medications Active Medications: Active Medications Generic Name Dose Route Start Last Admin Trade Name Freq PRN Reason Stop Dose Admin Acetaminophen 650 mg 12/11/16 09:29 Tylenol 325mg Tab PO Q6 PRN Pain, Mild (1-3) Aspirin 81 mg 12/11/16 17:45 12/12/16 11:06 Ecotrin PO 81 mg DAILY PERRY Administration Clopidogrel Bisulfate 75 mg 12/11/16 17:45 12/12/16 11:10 Plavix PO 75 mg DAILY PERRY Administration Diphenhydramine HCl 25 mg 12/11/16 13:15 12/12/16 18:34 Benadryl PO 25 mg Q8H PRN Administration itchiness Famotidine 20 mg 12/11/16 10:00 12/12/16 11:10 Pepcid PO 20 mg DAILY PERRY Administration Gabapentin 600 mg 12/08/16 18:00 12/12/16 17:01 Neurontin PO 600 mg BID PERRY Administration Glipizide 10 mg 12/08/16 18:00 Glucotrol PO BID PERRY Hydralazine HCl 10 mg 12/10/16 17:11 Apresoline IVP Q6H PRN Shortness of Breath Hydrochlorothiazide 25 mg 12/12/16 10:00 12/12/16 11:18 Hydrodiuril PO 25 mg DAILY PERRY Administration Hydromorphone HCl 1 mg 12/10/16 17:15 12/12/16 21:41 Dilaudid IVP 1 mg Q4H PRN Administration Pain, severe (8-10) Piperacillin Sod/Tazobactam Sod 3.375 gm in 50 mls @ 100 mls/hr 12/12/16 22: 00 12/13/16 05:22 Zosyn 3.375 Gm Iv Premix IVPB 100 mls/hr Q8H PERRY Administration Vancomycin/Sodium Chloride 1 gm in 200 mls @ 133.333 mls/hr 12/12/16 21:30 21:42 Vancocin IVPB 12/17/16 21:31 133.333 mls/hr Q24H PERRY Administration Insulin Human Regular 0 unit 12/08/16 22:00 12/13/16 07:57 Novolin R SC 2 unit ACHS PERRY Administration Protocol Losartan Potassium 50 mg 12/09/16 10:00 12/12/16 11:05 Cozaar PO 50 mg DAILY PERRY Administration Metoprolol Tartrate 25 mg 12/09/16 10:00 12/12/16 11:14 Lopressor PO 25 mg DAILY PERRY Administration Mupirocin 0 gm 12/10/16 10:00 12/12/16 17:01 Bactroban Ointment TOP 1 applic BID PERRY Administration Nicotine 1 patch 12/11/16 10:00 12/12/16 11:08 Nicoderm Cq TD 1 patch DAILY PERRY Administration [id number] Ethyl Esters 1 gm 12/10/16 10:00 12/12/16 11:11 Lovaza PO 1 gm DAILY PERRY Administration Ondansetron HCl 4 mg 12/10/16 20:57 12/10/16 21:13 Zofran Inj IVP 4 mg Q6 PRN Administration Nausea/Vomiting Rosuvastatin Calcium 20 mg 12/08/16 22:00 12/12/16 21:40 Crestor PO 20 mg HS PERRY Administration Saccharomyces Boulardii 250 mg 12/09/16 10:00 12/12/16 11:06 Florastor PO 250 mg DAILY PERRY Administration Sitagliptin Phosphate 100 mg 12/09/16 10:00 12/12/16 11:15 Januvia PO 100 mg DAILY PERRY Administration - Patient Studies Lab Studies: Microbiology Studies 12/08/16 19:30 Blood Culture - Preliminary Blood NO GROWTH AFTER 4 DAYS 12/08/16 19:50 Blood Culture - Preliminary Blood NO GROWTH AFTER 4 DAYS Lab Studies 12/13/16 12/13/16 12/12/16 Range/Units 06:18 06:18 21:20 WBC 4.6 L (4.8-10.8) K/uL RBC 3.08 L (3.80-5.20) Mil/uL Hgb 8.2 L (11.0-16.0) g/dL Hct 24.7 L (34.0-47.0) % MCV 80.2 L (81.0-99.0) fL MCH 26.7 L (27.0-31.0) pg MCHC 33.3 (33.0-37.0) g/dL RDW 13.8 (11.5-14.5) % Plt Count 109 L (130-400) K/uL MPV 9.7 (7.2-11.7) fL Neut % (Auto) 65.1 (50.0-75.0) % Lymph % (Auto) 23.0 (20.0-40.0) % [place] % (Auto) 8.6 (0.0-10.0) % Eos % (Auto) 2.8 (0.0-4.0) % Baso % (Auto) 0.5 (0.0-2.0) % Neut # 3.0 (1.8-7.0) K/uL Lymph # 1.1 (1.0-4.3) K/uL [place] # 0.4 (0.0-0.8) K/uL Eos # 0.1 (0.0-0.7) K/uL Baso # 0.0 (0.0-0.2) K/uL Sodium 136 (132-148) mmol/L Potassium 3.9 (3.6-5.2) mmol/L Chloride 103 (98-107) mmol/L Carbon Dioxide 25 (22-30) mmol/L Anion Gap 12 (10-20) BUN 19 H (7-17) mg/dL Creatinine 1.1 (0.7-1.2) MG/DL Est GFR ( Amer) 60 Est GFR (Non-Af Amer) 50 POC Glucose (mg/dL) 247 H (65-110) mg/dL Random Glucose 164 H (65-105) mg/dL Calcium 8.2 L (8.6-10.4) mg/dl Phosphorus 3.4 (2.5-4.5) mg/dL Magnesium 2.0 (1.6-2.3) mg/dL Total Bilirubin 0.6 (0.2-1.3) mg/dL AST 23 (14-36) U/L ALT 24 (9-52) U/L Alkaline Phosphatase 59 (38-126) U/L Total Protein 5.8 L (6.3-8.3) g/dL Albumin 2.9 L (3.5-5.0) g/dL Globulin 2.8 (2.2-3.9) gm/dL Albumin/Globulin Ratio 1.0 (1.0-2.1) Ur Random Creatinine mg/dL 12/12/16 12/12/16 12/12/16 Range/Units 18:17 16:17 11:44 WBC (4.8-10.8) K/uL RBC (3.80-5.20) Mil/uL Hgb (11.0-16.0) g/dL Hct (34.0-47.0) % MCV (81.0-99.0) fL MCH (27.0-31.0) pg MCHC (33.0-37.0) g/dL RDW (11.5-14.5) % Plt Count (130-400) K/uL MPV (7.2-11.7) fL Neut % (Auto) (50.0-75.0) % Lymph % (Auto) (20.0-40.0) % [place] % (Auto) (0.0-10.0) % Eos % (Auto) (0.0-4.0) % Baso % (Auto) (0.0-2.0) % Neut # (1.8-7.0) K/uL Lymph # (1.0-4.3) K/uL [place] # (0.0-0.8) K/uL Eos # (0.0-0.7) K/uL Baso # (0.0-0.2) K/uL Sodium (132-148) mmol/L Potassium (3.6-5.2) mmol/L Chloride (98-107) mmol/L Carbon Dioxide (22-30) mmol/L Anion Gap (10-20) BUN (7-17) mg/dL Creatinine (0.7-1.2) MG/DL Est GFR ( Amer) Est GFR (Non-Af Amer) POC Glucose (mg/dL) 280 H 205 H (65-110) mg/dL Random Glucose (65-105) mg/dL Calcium (8.6-10.4) mg/dl Phosphorus (2.5-4.5) mg/dL Magnesium (1.6-2.3) mg/dL Total Bilirubin (0.2-1.3) mg/dL AST (14-36) U/L ALT (9-52) U/L Alkaline Phosphatase (38-126) U/L Total Protein (6.3-8.3) g/dL Albumin (3.5-5.0) g/dL Globulin (2.2-3.9) gm/dL Albumin/Globulin Ratio (1.0-2.1) Ur Random Creatinine 110.1 mg/dL Laboratory Results - last 24 hr 12/12/16 12/12/16 12/12/16 11:44 16:17 18:17 WBC RBC Hgb Hct MCV MCH MCHC RDW Plt Count MPV Neut % (Auto) Lymph % (Auto) [place] % (Auto) Eos % (Auto) Baso % (Auto) Neut # Lymph # [place] # Eos # Baso # Sodium Potassium Chloride Carbon Dioxide Anion Gap BUN Creatinine Est GFR ( Amer) Est GFR (Non-Af Amer) POC Glucose (mg/dL) 205 H 280 H Random Glucose Calcium Phosphorus Magnesium Total Bilirubin AST ALT Alkaline Phosphatase Total Protein Albumin Globulin Albumin/Globulin Ratio Ur Random Creatinine 110.1 12/12/16 12/13/16 12/13/16 21:20 06:18 06:18 WBC 4.6 L RBC 3.08 L Hgb 8.2 L Hct 24.7 L MCV 80.2 L MCH 26.7 L MCHC 33.3 RDW 13.8 Plt Count 109 L MPV 9.7 Neut % (Auto) 65.1 Lymph % (Auto) 23.0 [place] % (Auto) 8.6 Eos % (Auto) 2.8 Baso % (Auto) 0.5 Neut # 3.0 Lymph # 1.1 [place] # 0.4 Eos # 0.1 Baso # 0.0 Sodium 136 Potassium 3.9 Chloride 103 Carbon Dioxide 25 Anion Gap 12 BUN 19 H Creatinine 1.1 Est GFR ( Amer) 60 Est GFR (Non-Af Amer) 50 POC Glucose (mg/dL) 247 H Random Glucose 164 H Calcium 8.2 L Phosphorus 3.4 Magnesium 2.0 Total Bilirubin 0.6 AST 23 ALT 24 Alkaline Phosphatase 59 Total Protein 5.8 L Albumin 2.9 L Globulin 2.8 Albumin/Globulin Ratio 1.0 Ur Random Creatinine Fingerstick Blood Sugar Results: 203 Review of Systems - Constitutional Constitutional: absent: Fever - EENT Ears: absent: Dizziness - Cardiovascular Cardiovascular: absent: Chest Pain, Dyspnea, Lightheadedness, Palpitations, Pedal Edema - Respiratory Respiratory: absent: Dyspnea - Gastrointestinal Gastrointestinal: Constipation (has not had a bowel movement since the middle of last week.). absent: Diarrhea, Loose Stools, Nausea, Vomiting - Genitourinary Genitourinary: absent: Dysuria - Neurological Neurological: absent: Dizziness, Headaches Critical Care Progress Note - Nutrition Nutrition: Nutrition Category Date Time Status NPO Diet [DIET] Diets 12/13/16 Breakfast Active Assessment/Plan - Assessment and Plan (Free Text) Assessment: 66 year old female with past medical history of DM, HTN, HLD, PVD s/p B/L stents , hx of DVT on Eliquis and CAD s/p stent presents to hospital for B/L LE claudication. 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 Alvarado --> help appreciated Pulmonary: NC @ 2L PRN Gastrointestinal: Resume HHD NPO after breakfast Pepcid IVP Hematology: Type and Cross 2 units Anti-coagulation as above H/H (12/13/16): 8.2/24.7 Endocrine: Home meds as ordered [place]: Podiatry Consult: Dr. Rocha --> help appreciated Continue to monitor the cellulitis of the right medial ankle Renal: No MERLINE, baseline Cr normal. Will f/u labs s/p procedure BUN/Cr (12/13/16): : 19/1.1 Nephrology Consult: Dr. Coley --> help appreciated Infectious Disease: On Zosyn GI Prophylaxis: Pepcid DVT Prophylaxis: On TPA/Heparin EKOS protocol. Disposition: Possible transfer to regular medical floor. Discussed with Dr. Jason Romero PGY-1 <Brad Gomez - Last Filed: 12/13/16 19:17> CCU Objective - Vital Signs / Intake & Output Vital Signs (Last 4 hours): Vital Signs Temp Pulse Resp BP Pulse Ox 12/13/16 18:50 77 17 131/71 97 12/13/16 18:34 75 11 L 164/59 H 97 12/13/16 18:18 65 19 146/65 97 12/13/16 18:04 64 12 147/59 L 98 12/13/16 18:00 62 15 96 12/13/16 17:49 63 11 L 150/54 L 98 12/13/16 17:45 98.7 F 72 15 147/59 L 12/13/16 17:20 98.6 F 68 15 150/54 L 12/13/16 17:19 60 19 154/80 H 97 12/13/16 17:04 68 14 156/74 H 98 12/13/16 16:50 98.7 F 67 15 187/84 H 12/13/16 16:34 66 12 131/62 98 12/13/16 16:20 98.6 F 77 19 148/49 L 12/13/16 16:04 68 17 138/55 L 94 L 12/13/16 16:00 97.6 F 12/13/16 15:50 99.1 F 66 19 148/56 L 12/13/16 15:35 99 F 68 15 136/53 L 12/13/16 15:34 74 11 L 136/53 L 99 12/13/16 15:20 98.9 F 74 12 160/62 H Intake and Output (Last 8hrs): Intake & Output 12/13/16 12/13/16 12/13/16 06:59 14:59 22:59 Intake Total 250 300 625 Output Total 500 250 0 Balance -250 50 625 Intake: Intake, IV Amount 50 Left Forearm 50 Oral 200 300 300 Blood Product 325 Red Blood Cells Cpd As1 325 Lr Unit [id number] Output: Urine 500 250 0 Urine, Voided 500 250 0 Other: # Voids Urine, Voided 1 1 # Bowel Movements 0 - Medications Active Medications: Active Medications Generic Name Dose Route Start Last Admin Trade Name Freq PRN Reason Stop Dose Admin Acetaminophen 650 mg 12/11/16 09:29 Tylenol 325mg Tab PO Q6 PRN Pain, Mild (1-3) Aspirin 81 mg 12/11/16 17:45 12/13/16 09:21 Ecotrin PO 81 mg DAILY PERRY Administration Clopidogrel Bisulfate 75 mg 12/11/16 17:45 12/13/16 09:25 Plavix PO 75 mg DAILY PERRY Administration Diphenhydramine HCl 25 mg 12/11/16 13:15 12/12/16 18:34 Benadryl PO 25 mg Q8H PRN Administration itchiness Enoxaparin Sodium 40 mg 12/13/16 10:00 12/13/16 11:12 Lovenox SC 40 mg DAILY PERRY Administration Famotidine 20 mg 12/11/16 10:00 12/13/16 09:24 Pepcid PO 20 mg DAILY PERRY Administration Gabapentin 600 mg 12/08/16 18:00 12/13/16 18:13 Neurontin PO 600 mg BID PERRY Administration Glipizide 10 mg 12/08/16 18:00 Glucotrol PO BID PERRY Hydralazine HCl 10 mg 12/10/16 17:11 Apresoline IVP Q6H PRN Shortness of Breath Hydrochlorothiazide 25 mg 12/12/16 10:00 12/13/16 09:22 Hydrodiuril PO 25 mg DAILY PERRY Administration Hydromorphone HCl 1 mg 12/10/16 17:15 12/12/16 21:41 Dilaudid IVP 1 mg Q4H PRN Administration Pain, severe (8-10) Piperacillin Sod/Tazobactam Sod 3.375 gm in 50 mls @ 100 mls/hr 12/12/16 22: 00 12/13/16 17:09 Zosyn 3.375 Gm Iv Premix IVPB Not Given Q8H PERRY Vancomycin/Sodium Chloride 1 gm in 200 mls @ 133.333 mls/hr 12/12/16 21:30 21:42 Vancocin IVPB 12/17/16 21:31 133.333 mls/hr Q24H PERRY Administration Insulin Human Regular 0 unit 12/08/16 22:00 12/13/16 16:41 Novolin R SC 3 unit ACHS PERRY Administration Protocol Losartan Potassium 50 mg 12/09/16 10:00 12/13/16 09:21 Cozaar PO 50 mg DAILY PERRY Administration Metoprolol Tartrate 25 mg 12/09/16 10:00 12/13/16 09:23 Lopressor PO 25 mg DAILY PERRY Administration Mupirocin 0 gm 12/10/16 10:00 12/13/16 18:13 Bactroban Ointment TOP 1 applic BID PERRY Administration Nicotine 1 patch 12/11/16 10:00 12/13/16 09:24 Nicoderm Cq TD 1 patch DAILY PERRY Administration [id number] Ethyl Esters 1 gm 12/10/16 10:00 12/13/16 09:24 Lovaza PO 1 gm DAILY PERRY Administration Ondansetron HCl 4 mg 12/10/16 20:57 12/10/16 21:13 Zofran Inj IVP 4 mg Q6 PRN Administration Nausea/Vomiting Rosuvastatin Calcium 20 mg 12/08/16 22:00 12/12/16 21:40 Crestor PO 20 mg HS PERRY Administration Saccharomyces Boulardii 250 mg 12/09/16 10:00 12/13/16 09:27 Florastor PO 250 mg DAILY PERRY Administration Sitagliptin Phosphate 100 mg 12/09/16 10:00 12/13/16 09:22 Januvia PO 100 mg DAILY PERRY Administration - Patient Studies Lab Studies: Microbiology Studies 12/08/16 19:30 Blood Culture - Preliminary Blood NO GROWTH AFTER 4 DAYS 12/08/16 19:50 Blood Culture - Preliminary Blood NO GROWTH AFTER 4 DAYS Lab Studies 12/13/16 12/13/16 12/13/16 Range/Units 16:35 11:27 07:19 WBC (4.8-10.8) K/uL RBC (3.80-5.20) Mil/uL Hgb (11.0-16.0) g/dL Hct (34.0-47.0) % MCV (81.0-99.0) fL MCH (27.0-31.0) pg MCHC (33.0-37.0) g/dL RDW (11.5-14.5) % Plt Count (130-400) K/uL MPV (7.2-11.7) fL Neut % (Auto) (50.0-75.0) % Lymph % (Auto) (20.0-40.0) % [place] % (Auto) (0.0-10.0) % Eos % (Auto) (0.0-4.0) % Baso % (Auto) (0.0-2.0) % Neut # (1.8-7.0) K/uL Lymph # (1.0-4.3) K/uL [place] # (0.0-0.8) K/uL Eos # (0.0-0.7) K/uL Baso # (0.0-0.2) K/uL Sodium (132-148) mmol/L Potassium (3.6-5.2) mmol/L Chloride (98-107) mmol/L Carbon Dioxide (22-30) mmol/L Anion Gap (10-20) BUN (7-17) mg/dL Creatinine (0.7-1.2) MG/DL Est GFR ( Amer) Est GFR (Non-Af Amer) POC Glucose (mg/dL) 285 H 148 H 203 H (65-110) mg/dL Random Glucose (65-105) mg/dL Calcium (8.6-10.4) mg/dl Phosphorus (2.5-4.5) mg/dL Magnesium (1.6-2.3) mg/dL Total Bilirubin (0.2-1.3) mg/dL AST (14-36) U/L ALT (9-52) U/L Alkaline Phosphatase (38-126) U/L Total Protein (6.3-8.3) g/dL Albumin (3.5-5.0) g/dL Globulin (2.2-3.9) gm/dL Albumin/Globulin Ratio (1.0-2.1) Blood Type Antibody Screen 12/13/16 12/13/16 12/12/16 Range/Units 06:18 06:18 21:20 WBC 4.6 L (4.8-10.8) K/uL RBC 3.08 L (3.80-5.20) Mil/uL Hgb 8.2 L (11.0-16.0) g/dL Hct 24.7 L (34.0-47.0) % MCV 80.2 L (81.0-99.0) fL MCH 26.7 L (27.0-31.0) pg MCHC 33.3 (33.0-37.0) g/dL RDW 13.8 (11.5-14.5) % Plt Count 109 L (130-400) K/uL MPV 9.7 (7.2-11.7) fL Neut % (Auto) 65.1 (50.0-75.0) % Lymph % (Auto) 23.0 (20.0-40.0) % [place] % (Auto) 8.6 (0.0-10.0) % Eos % (Auto) 2.8 (0.0-4.0) % Baso % (Auto) 0.5 (0.0-2.0) % Neut # 3.0 (1.8-7.0) K/uL Lymph # 1.1 (1.0-4.3) K/uL [place] # 0.4 (0.0-0.8) K/uL Eos # 0.1 (0.0-0.7) K/uL Baso # 0.0 (0.0-0.2) K/uL Sodium 136 (132-148) mmol/L Potassium 3.9 (3.6-5.2) mmol/L Chloride 103 (98-107) mmol/L Carbon Dioxide 25 (22-30) mmol/L Anion Gap 12 (10-20) BUN 19 H (7-17) mg/dL Creatinine 1.1 (0.7-1.2) MG/DL Est GFR ( Amer) 60 Est GFR (Non-Af Amer) 50 POC Glucose (mg/dL) 247 H (65-110) mg/dL Random Glucose 164 H (65-105) mg/dL Calcium 8.2 L (8.6-10.4) mg/dl Phosphorus 3.4 (2.5-4.5) mg/dL Magnesium 2.0 (1.6-2.3) mg/dL Total Bilirubin 0.6 (0.2-1.3) mg/dL AST 23 (14-36) U/L ALT 24 (9-52) U/L Alkaline Phosphatase 59 (38-126) U/L Total Protein 5.8 L (6.3-8.3) g/dL Albumin 2.9 L (3.5-5.0) g/dL Globulin 2.8 (2.2-3.9) gm/dL Albumin/Globulin Ratio 1.0 (1.0-2.1) Blood Type Antibody Screen 12/10/16 Range/Units 17:39 WBC (4.8-10.8) K/uL RBC (3.80-5.20) Mil/uL Hgb (11.0-16.0) g/dL Hct (34.0-47.0) % MCV (81.0-99.0) fL MCH (27.0-31.0) pg MCHC (33.0-37.0) g/dL RDW (11.5-14.5) % Plt Count (130-400) K/uL MPV (7.2-11.7) fL Neut % (Auto) (50.0-75.0) % Lymph % (Auto) (20.0-40.0) % [place] % (Auto) (0.0-10.0) % Eos % (Auto) (0.0-4.0) % Baso % (Auto) (0.0-2.0) % Neut # (1.8-7.0) K/uL Lymph # (1.0-4.3) K/uL [place] # (0.0-0.8) K/uL Eos # (0.0-0.7) K/uL Baso # (0.0-0.2) K/uL Sodium (132-148) mmol/L Potassium (3.6-5.2) mmol/L Chloride (98-107) mmol/L Carbon Dioxide (22-30) mmol/L Anion Gap (10-20) BUN (7-17) mg/dL Creatinine (0.7-1.2) MG/DL Est GFR ( Amer) Est GFR (Non-Af Amer) POC Glucose (mg/dL) (65-110) mg/dL Random Glucose (65-105) mg/dL Calcium (8.6-10.4) mg/dl Phosphorus (2.5-4.5) mg/dL Magnesium (1.6-2.3) mg/dL Total Bilirubin (0.2-1.3) mg/dL AST (14-36) U/L ALT (9-52) U/L Alkaline Phosphatase (38-126) U/L Total Protein (6.3-8.3) g/dL Albumin (3.5-5.0) g/dL Globulin (2.2-3.9) gm/dL Albumin/Globulin Ratio (1.0-2.1) Blood Type B POSITIVE Antibody Screen Negative Laboratory Results - last 24 hr 12/10/16 12/12/16 12/13/16 17:39 21:20 06:18 WBC 4.6 L RBC 3.08 L Hgb 8.2 L Hct 24.7 L MCV 80.2 L MCH 26.7 L MCHC 33.3 RDW 13.8 Plt Count 109 L MPV 9.7 Neut % (Auto) 65.1 Lymph % (Auto) 23.0 [place] % (Auto) 8.6 Eos % (Auto) 2.8 Baso % (Auto) 0.5 Neut # 3.0 Lymph # 1.1 [place] # 0.4 Eos # 0.1 Baso # 0.0 Sodium Potassium Chloride Carbon Dioxide Anion Gap BUN Creatinine Est GFR ( Amer) Est GFR (Non-Af Amer) POC Glucose (mg/dL) 247 H Random Glucose Calcium Phosphorus Magnesium Total Bilirubin AST ALT Alkaline Phosphatase Total Protein Albumin Globulin Albumin/Globulin Ratio Blood Type B POSITIVE Antibody Screen Negative 12/13/16 12/13/16 12/13/16 06:18 07:19 11:27 WBC RBC Hgb Hct MCV MCH MCHC RDW Plt Count MPV Neut % (Auto) Lymph % (Auto) [place] % (Auto) Eos % (Auto) Baso % (Auto) Neut # Lymph # [place] # Eos # Baso # Sodium 136 Potassium 3.9 Chloride 103 Carbon Dioxide 25 Anion Gap 12 BUN 19 H Creatinine 1.1 Est GFR ( Amer) 60 Est GFR (Non-Af Amer) 50 POC Glucose (mg/dL) 203 H 148 H Random Glucose 164 H Calcium 8.2 L Phosphorus 3.4 Magnesium 2.0 Total Bilirubin 0.6 AST 23 ALT 24 Alkaline Phosphatase 59 Total Protein 5.8 L Albumin 2.9 L Globulin 2.8 Albumin/Globulin Ratio 1.0 Blood Type Antibody Screen 12/13/16 16:35 WBC RBC Hgb Hct MCV MCH MCHC RDW Plt Count MPV Neut % (Auto) Lymph % (Auto) [place] % (Auto) Eos % (Auto) Baso % (Auto) Neut # Lymph # [place] # Eos # Baso # Sodium Potassium Chloride Carbon Dioxide Anion Gap BUN Creatinine Est GFR ( Amer) Est GFR (Non-Af Amer) POC Glucose (mg/dL) 285 H Random Glucose Calcium Phosphorus Magnesium Total Bilirubin AST ALT Alkaline Phosphatase Total Protein Albumin Globulin Albumin/Globulin Ratio Blood Type Antibody Screen Critical Care Progress Note - Nutrition Nutrition: Nutrition Category Date Time Status Consistent Carbohydrate [DIET] Diets 12/13/16 Lunch Active Attending/Attestation - Attestation I have personally seen and examined this patient.: Yes I have fully participated in the care of the patient.: Yes I have reviewed all pertinent clinical information: Yes Notes (Text): 12/13/16 19:16 agree with above note during rounds in the am pt was examined and clinical decision was made and discussed with icu team
[2016-12-13] MEDS: Omega-3-Acid Ethyl Esters 1 GM Cap PO SCH (09:24)
[2016-12-13] MEDS: Saccharomyces Boulardi 250 mg Cap PO SCH (09:27)
--- NOTE | 2016-12-13 10:26 | CP.PCM.PN ---
Subjective - Date & Time of Evaluation Date of Evaluation: 12/13/16 Time of Evaluation: 10:23 - Subjective Subjective: Right ankle still painful Renal function stable post angiogram still No CPs, SOB, N, V, D, fevers, chills UO adequate Objective - Vital Signs/Intake and Output Vital Signs (last 24 hours): Temp Pulse Resp BP Pulse Ox 98.3 F 74 13 157/64 H 92 L 12/13/16 04:00 12/13/16 07:00 12/13/16 07:00 12/13/16 09:23 12/13/16 07:00 Intake and Output: 12/13/16 12/13/16 06:59 18:59 Intake Total 710 0 Output Total 800 Balance -90 0 - Medications Medications: Current Medications Acetaminophen (Tylenol 325mg Tab) 650 mg PO Q6 PRN PRN Reason: Pain, Mild (1-3) Aspirin (Ecotrin) 81 mg PO DAILY [facility] Last Admin: 12/13/16 09:21 Dose: 81 mg Clopidogrel Bisulfate (Plavix) 75 mg PO DAILY [facility] Last Admin: 12/13/16 09:25 Dose: 75 mg Diphenhydramine HCl (Benadryl) 25 mg PO Q8H PRN PRN Reason: itchiness Last Admin: 12/12/16 18:34 Dose: 25 mg Enoxaparin Sodium (Lovenox) 40 mg SC DAILY [facility] Famotidine (Pepcid) 20 mg PO DAILY [facility] Last Admin: 12/13/16 09:24 Dose: 20 mg Gabapentin (Neurontin) 600 mg PO BID [facility] Last Admin: 12/13/16 09:24 Dose: 600 mg Glipizide (Glucotrol) 10 mg PO BID [facility] Hydralazine HCl (Apresoline) 10 mg IVP Q6H PRN PRN Reason: Shortness of Breath Hydrochlorothiazide (Hydrodiuril) 25 mg PO DAILY [facility] Last Admin: 12/13/16 09:22 Dose: 25 mg Hydromorphone HCl (Dilaudid) 1 mg IVP Q4H PRN PRN Reason: Pain, severe (8-10) Last Admin: 12/12/16 21:41 Dose: 1 mg Piperacillin Sod/Tazobactam Sod (Zosyn 3.375 Gm Iv Premix) 3.375 gm in 50 mls @ 100 mls/hr IVPB Q8H [facility] Last Admin: 12/13/16 05:22 Dose: 100 mls/hr Vancomycin/Sodium Chloride (Vancocin) 1 gm in 200 mls @ 133.333 mls/hr IVPB Q24H [facility] Stop: 12/17/16 21:31 Last Admin: 12/12/16 21:42 Dose: 133.333 mls/hr Insulin Human Regular (Novolin R) 0 unit SC ACHS [facility] PRN Reason: Protocol Last Admin: 12/13/16 07:57 Dose: 2 unit Losartan Potassium (Cozaar) 50 mg PO DAILY [facility] Last Admin: 12/13/16 09:21 Dose: 50 mg Metoprolol Tartrate (Lopressor) 25 mg PO DAILY [facility] Last Admin: 12/13/16 09:23 Dose: 25 mg Mupirocin (Bactroban Ointment) 0 gm TOP BID [facility] Last Admin: 12/13/16 09:14 Dose: 1 applic Nicotine (Nicoderm Cq) 1 patch TD DAILY [facility] Last Admin: 12/13/16 09:24 Dose: 1 patch [id number] Ethyl Esters (Lovaza) 1 gm PO DAILY [facility] Last Admin: 12/13/16 09:24 Dose: 1 gm Ondansetron HCl (Zofran Inj) 4 mg IVP Q6 PRN PRN Reason: Nausea/Vomiting Last Admin: 12/10/16 21:13 Dose: 4 mg Rosuvastatin Calcium (Crestor) 20 mg PO HS [facility] Last Admin: 12/12/16 21:40 Dose: 20 mg Saccharomyces Boulardii (Florastor) 250 mg PO DAILY [facility] Last Admin: 12/13/16 09:27 Dose: 250 mg Sitagliptin Phosphate (Januvia) 100 mg PO DAILY [facility] Last Admin: 12/13/16 09:22 Dose: 100 mg - Labs Labs: 12/13/16 06:18 12/13/16 06:18 PT 13.0 SECONDS (9.7-12.2) H 12/08/16 12:25 INR 1.2 12/08/16 12:25 APTT 35 SECONDS (21-34) H 12/08/16 12:25 - Constitutional Appears: No Acute Distress, Chronically Ill - Head Exam Head Exam: ATRAUMATIC, NORMAL INSPECTION - Eye Exam Eye Exam: EOMI, Normal appearance - Neck Exam Neck Exam: Normal Inspection. absent: Tenderness - Respiratory Exam Respiratory Exam: Clear to Ausculation Bilateral, NORMAL BREATHING PATTERN - Cardiovascular Exam Cardiovascular Exam: REGULAR RHYTHM, +S1 - GI/Abdominal Exam GI & Abdominal Exam: Soft. absent: Tenderness - Extremities Exam Extremities Exam: Normal Inspection. absent: Tenderness - Neurological Exam Neurological Exam: Alert, CN II-XII Intact - Skin Skin Exam: Dry, Warm Assessment and Plan (1) CKD (chronic kidney disease) stage 2, GFR 60-89 ml/min Status: Acute (2) Peripheral artery disease Status: Acute (3) COPD (chronic obstructive pulmonary disease) Status: Acute (4) HTN (hypertension) Status: Chronic - Assessment and Plan (Free Text) Plan: Monitor renal function, lytes still Same BP meds Await further vascular intervention- likely repeat stent Same IV ABs
--- NOTE | 2016-12-13 10:42 | CP.PCM.PN ---
Subjective - Date & Time of Evaluation Date of Evaluation: 12/13/16 Time of Evaluation: 10:20 - Subjective Subjective: Hospitalist Progress Note (Patient was seen and examined at 10:20 AM ICU Bed #1 12/13/16) ROS: Has not moved bowels since past Tuesday12/08/16 Otherwise not complaints upon FUL ROS Exam GI: Central Obesity, BS x 4, Ext: Right Foot Capillary Refill is 4 secons, Bilateral UE pulses are stronger than Bilateral LE pulses, NO edema, Right Medial Malleoli Eschar 0.5 cm with no signs of cellulitis Patient is for Balloon Angioplasty with Stent Right Leg at [facility] at 2 PM She will need to have Ensure + Shakes 3x/day ordered Full Note to follow Saleem Hassan D.O. [phone] Objective - Vital Signs/Intake and Output Vital Signs (last 24 hours): Temp Pulse Resp BP Pulse Ox 98.3 F 74 13 157/64 H 92 L 12/13/16 04:00 12/13/16 07:00 12/13/16 07:00 12/13/16 09:23 12/13/16 07:00 Intake and Output: 12/13/16 12/13/16 06:59 18:59 Intake Total 710 0 Output Total 800 Balance -90 0 - Medications Medications: Current Medications Acetaminophen (Tylenol 325mg Tab) 650 mg PO Q6 PRN PRN Reason: Pain, Mild (1-3) Aspirin (Ecotrin) 81 mg PO DAILY [facility] Last Admin: 12/13/16 09:21 Dose: 81 mg Clopidogrel Bisulfate (Plavix) 75 mg PO DAILY [facility] Last Admin: 12/13/16 09:25 Dose: 75 mg Diphenhydramine HCl (Benadryl) 25 mg PO Q8H PRN PRN Reason: itchiness Last Admin: 12/12/16 18:34 Dose: 25 mg Enoxaparin Sodium (Lovenox) 40 mg SC DAILY [facility] Famotidine (Pepcid) 20 mg PO DAILY [facility] Last Admin: 12/13/16 09:24 Dose: 20 mg Gabapentin (Neurontin) 600 mg PO BID [facility] Last Admin: 12/13/16 09:24 Dose: 600 mg Glipizide (Glucotrol) 10 mg PO BID [facility] Hydralazine HCl (Apresoline) 10 mg IVP Q6H PRN PRN Reason: Shortness of Breath Hydrochlorothiazide (Hydrodiuril) 25 mg PO DAILY [facility] Last Admin: 12/13/16 09:22 Dose: 25 mg Hydromorphone HCl (Dilaudid) 1 mg IVP Q4H PRN PRN Reason: Pain, severe (8-10) Last Admin: 12/12/16 21:41 Dose: 1 mg Piperacillin Sod/Tazobactam Sod (Zosyn 3.375 Gm Iv Premix) 3.375 gm in 50 mls @ 100 mls/hr IVPB Q8H [facility] Last Admin: 12/13/16 05:22 Dose: 100 mls/hr Vancomycin/Sodium Chloride (Vancocin) 1 gm in 200 mls @ 133.333 mls/hr IVPB Q24H [facility] Stop: 12/17/16 21:31 Last Admin: 12/12/16 21:42 Dose: 133.333 mls/hr Insulin Human Regular (Novolin R) 0 unit SC [facility] PRN Reason: Protocol Last Admin: 12/13/16 07:57 Dose: 2 unit Losartan Potassium (Cozaar) 50 mg PO DAILY [facility] Last Admin: 12/13/16 09:21 Dose: 50 mg Metoprolol Tartrate (Lopressor) 25 mg PO DAILY [facility] Last Admin: 12/13/16 09:23 Dose: 25 mg Mupirocin (Bactroban Ointment) 0 gm TOP BID [facility] Last Admin: 12/13/16 09:14 Dose: 1 applic Nicotine (Nicoderm Cq) 1 patch TD DAILY [facility] Last Admin: 12/13/16 09:24 Dose: 1 patch [id number] Ethyl Esters (Lovaza) 1 gm PO DAILY [facility] Last Admin: 12/13/16 09:24 Dose: 1 gm Ondansetron HCl (Zofran Inj) 4 mg IVP Q6 PRN PRN Reason: Nausea/Vomiting Last Admin: 12/10/16 21:13 Dose: 4 mg Rosuvastatin Calcium (Crestor) 20 mg PO HS [facility] Last Admin: 12/12/16 21:40 Dose: 20 mg Saccharomyces Boulardii (Florastor) 250 mg PO DAILY [facility] Last Admin: 12/13/16 09:27 Dose: 250 mg Sitagliptin Phosphate (Januvia) 100 mg PO DAILY [facility] Last Admin: 12/13/16 09:22 Dose: 100 mg - Labs Labs: 12/13/16 06:18 12/13/16 06:18 PT 13.0 SECONDS (9.7-12.2) H 12/08/16 12:25 INR 1.2 12/08/16 12:25 APTT 35 SECONDS (21-34) H 12/08/16 12:25
[2016-12-13] MEDS: Enoxaparin 40 mg Syringe SC SCH (11:12)
--- NOTE | 2016-12-13 12:48 | CARD ---
APPROVED REPORT EKG Measurement Heart [id number] <Conclusion> Normal sinus rhythm ST & T wave abnormality, consider lateral ischemia Abnormal ECG
--- NOTE | 2016-12-13 16:35 | CP.PCM.PN ---
<Marya Hart E - Last Filed: 12/13/16 18:50> Subjective - Date & Time of Evaluation Date of Evaluation: 12/13/16 Time of Evaluation: 10:15 - Subjective Subjective: Medicine note (PGY 1) : Dr. Olegario Hassan's service Patient was seen and examined at bedside. Patient was resting comfortably, awaiting percutaneous transluminal angioplasty procedure for today. Patient reports that she is doing and has no complaints. Patient denies chest pain, sob , fever, chills, nausea and vomiting. Objective - Vital Signs/Intake and Output Vital Signs (last 24 hours): Temp Pulse Resp BP Pulse Ox 98.6 F 77 19 148/49 L 94 L 12/13/16 16:20 12/13/16 16:20 12/13/16 16:20 12/13/16 16:20 12/13/16 16:04 Intake and Output: 12/13/16 12/13/16 06:59 18:59 Intake Total 710 300 Output Total 800 250 Balance -90 50 - Medications Medications: Current Medications Acetaminophen (Tylenol 325mg Tab) 650 mg PO Q6 PRN PRN Reason: Pain, Mild (1-3) Aspirin (Ecotrin) 81 mg PO DAILY [facility] Last Admin: 12/13/16 09:21 Dose: 81 mg Clopidogrel Bisulfate (Plavix) 75 mg PO DAILY [facility] Last Admin: 12/13/16 09:25 Dose: 75 mg Diphenhydramine HCl (Benadryl) 25 mg PO Q8H PRN PRN Reason: itchiness Last Admin: 12/12/16 18:34 Dose: 25 mg Enoxaparin Sodium (Lovenox) 40 mg SC DAILY [facility] Last Admin: 12/13/16 11:12 Dose: 40 mg Famotidine (Pepcid) 20 mg PO DAILY [facility] Last Admin: 12/13/16 09:24 Dose: 20 mg Gabapentin (Neurontin) 600 mg PO BID [facility] Last Admin: 12/13/16 09:24 Dose: 600 mg Glipizide (Glucotrol) 10 mg PO BID [facility] Hydralazine HCl (Apresoline) 10 mg IVP Q6H PRN PRN Reason: Shortness of Breath Hydrochlorothiazide (Hydrodiuril) 25 mg PO DAILY [facility] Last Admin: 12/13/16 09:22 Dose: 25 mg Hydromorphone HCl (Dilaudid) 1 mg IVP Q4H PRN PRN Reason: Pain, severe (8-10) Last Admin: 12/12/16 21:41 Dose: 1 mg Piperacillin Sod/Tazobactam Sod (Zosyn 3.375 Gm Iv Premix) 3.375 gm in 50 mls @ 100 mls/hr IVPB Q8H [facility] Last Admin: 12/13/16 05:22 Dose: 100 mls/hr Vancomycin/Sodium Chloride (Vancocin) 1 gm in 200 mls @ 133.333 mls/hr IVPB Q24H [facility] Stop: 12/17/16 21:31 Last Admin: 12/12/16 21:42 Dose: 133.333 mls/hr Insulin Human Regular (Novolin R) 0 unit SC ACHS [facility] PRN Reason: Protocol Last Admin: 12/13/16 12:24 Dose: Not Given Losartan Potassium (Cozaar) 50 mg PO DAILY [facility] Last Admin: 12/13/16 09:21 Dose: 50 mg Metoprolol Tartrate (Lopressor) 25 mg PO DAILY [facility] Last Admin: 12/13/16 09:23 Dose: 25 mg Mupirocin (Bactroban Ointment) 0 gm TOP BID [facility] Last Admin: 12/13/16 09:14 Dose: 1 applic Nicotine (Nicoderm Cq) 1 patch TD DAILY [facility] Last Admin: 12/13/16 09:24 Dose: 1 patch [id number] Ethyl Esters (Lovaza) 1 gm PO DAILY [facility] Last Admin: 12/13/16 09:24 Dose: 1 gm Ondansetron HCl (Zofran Inj) 4 mg IVP Q6 PRN PRN Reason: Nausea/Vomiting Last Admin: 12/10/16 21:13 Dose: 4 mg Rosuvastatin Calcium (Crestor) 20 mg PO HS [facility] Last Admin: 12/12/16 21:40 Dose: 20 mg Saccharomyces Boulardii (Florastor) 250 mg PO DAILY [facility] Last Admin: 12/13/16 09:27 Dose: 250 mg Sitagliptin Phosphate (Januvia) 100 mg PO DAILY [facility] Last Admin: 12/13/16 09:22 Dose: 100 mg - Labs Labs: 12/13/16 06:18 12/13/16 06:18 PT 13.0 SECONDS (9.7-12.2) H 12/08/16 12:25 INR 1.2 12/08/16 12:25 APTT 35 SECONDS (21-34) H 12/08/16 12:25 - Constitutional Appears: Well, No Acute Distress - Head Exam Head Exam: NORMAL INSPECTION, NORMOCEPHALIC - Eye Exam Eye Exam: EOMI, Normal appearance - ENT Exam ENT Exam: Mucous Membranes Moist, Normal Exam - Respiratory Exam Respiratory Exam: Clear to Ausculation Bilateral, NORMAL BREATHING PATTERN - Cardiovascular Exam Cardiovascular Exam: REGULAR RHYTHM, +S1, +S2 - GI/Abdominal Exam GI & Abdominal Exam: Soft, Normal Bowel Sounds - Extremities Exam Extremities Exam: Full ROM. absent: Normal Inspection (Right medial malleolus ulcer ) - Neurological Exam Neurological Exam: Alert, Awake, Oriented x3 - Psychiatric Exam Psychiatric exam: Normal Affect, Normal Mood - Skin Skin Exam: Dry, Normal Color, Warm Assessment and Plan (1) Peripheral artery disease Assessment & Plan: Ramp And Cargo Supervisor (Dr. Alvarado)----> On board (Help appreciated) 12/13: Patient's percutaneous transluminal angioplasty procedure for today was cancelled due to low hemoglobin of 8.2. Patient was then transfused 1 unit of PRBC - As per bark press operator, patient is to restart plavix, aspirin and lovenox SC and made NPO @ breakfast for tomorrow Imaging: Abdominal Angiogram (12/08/16): Essentially unremarkable CT angiogram of the abdomen pelvis. * RIGHT LOWER EXTREMITY CT ANGIOGRAM: 1. Common femoral artery profunda femoral artery normal. 2. Proximal SFA stent has significant InStent stenosis and is otherwise patent. Distal SFA stent extending the popliteal artery is occluded. The popliteal artery beyond the stent is severely stenotic. 3. Runoff shows patent anterior tibial artery. The tibioperoneal trunk is calcified. The peroneal artery is patent. The posterior tibial artery also believed to be patent. * LEFT LOWER EXTREMITY CT ANGIOGRAM: 1. Unremarkable common femoral artery profunda femoral artery. 2. SFA stent extending from proximal SFA to the popliteal artery has significant in stent stenosis and believed to be patent. 3. There is severe stenosis of popliteal artery beyond the stent. 4. Runoff shows a patent anterior tibial artery calcification near the origin. This calcification with tibioperoneal trunk. The peroneal artery is patent. There is occlusion of the distal posterior tibial artery. Lower extremity ultrasound (12/08/16) : severely decreased perfusion of the right lower extremity, noted at the superficial femoral, poplitea, and tibilar artery levels. Left: this exam reveals severely decreased perfusion of the left lower extremity, noted at the superifical femoral, popliteal, and tibial artery levels. * Right TEMI is 0.24 and left TEMI is 0.54 History of PVD: Patient was hospitalized for PVS 03/2016 and underwent ballon angioplasty, angiojet thrombectomy and TPA Status: Acute (2) Anemia Assessment & Plan: History of anemia * Secondary to CKD * H/H on admission (10.7/32.6) ---> (8.2/24.7) * Transfused 1 unit of PRBC (12/13/16) * Continue to monitor H/H Status: Chronic (3) Chronic kidney disease, stage 3 Assessment & Plan: Monitor BUN/Cr Patient follows-up with Dr. Coley as outpatient. Status: Chronic (4) Ulcer of right ankle Assessment & Plan: Podiatry consult ----> Help appreciated 12/08/16 Blood Cultures: no growth x2 Pending gram stain Started on vancomycin 1 gm IVPB qd and zosyn 3.375 mg IVPB q 6 (12/12/16) Lotrimin top BID Status: Acute (5) Diabetes mellitus Assessment & Plan: Chela LEON - JONO low - Will hold home metformin and glipizide for procedure tomorrow - will continue home Januvia - Recent HgbA1c in 10/2016 was 8.5 Status: Chronic (6) HTN (hypertension) Assessment & Plan: Continue home medications: * Lopressor 25 mg po qd, * Losartan 50 mg po qd, * HCTZ 12.5 mg po qd * Hydralazine 10mg IVQ6h PRN SBP>160 * Monitor Status: Chronic (7) Hyperlipidemia Assessment & Plan: continue current management * Lipid Panel: T chol:98 LDL:49 HDL: 27 * Crestor 20mg POqHS Status: Chronic (8) History of deep vein thrombosis Assessment & Plan: will hold Eliquis Started on Lovenox 70 mg Sc BID 11/2015: TPA infusion Status: Chronic (9) History of coronary artery disease Assessment & Plan: As per cardiology: Patient is to continue Aspirin 81mg PO daily, Plavix 75mg PO daily 12/13/16: Patient is to restart aspirin, plavix and lovenox Status: Acute (10) Prophylactic measure Assessment & Plan: Therapeutic lovenox 40mg SC daily Pepcid 20mg PO daily for GI ppx Florastor 250mg PO bid Status: Acute <Saleem Hassan - Last Filed: 12/13/16 19:34> Objective - Vital Signs/Intake and Output Vital Signs (last 24 hours): Temp Pulse Resp BP Pulse Ox 98.7 F 77 17 131/71 97 12/13/16 17:45 12/13/16 18:50 12/13/16 18:50 12/13/16 18:50 12/13/16 18:50 Intake and Output: 12/13/16 12/14/16 18:59 06:59 Intake Total 925 Output Total 1050 Balance -125 - Medications Medications: Current Medications Acetaminophen (Tylenol 325mg Tab) 650 mg PO Q6 PRN PRN Reason: Pain, Mild (1-3) Aspirin (Ecotrin) 81 mg PO DAILY [facility] Last Admin: 12/13/16 09:21 Dose: 81 mg Clopidogrel Bisulfate (Plavix) 75 mg PO DAILY [facility] Last Admin: 12/13/16 09:25 Dose: 75 mg Diphenhydramine HCl (Benadryl) 25 mg PO Q8H PRN PRN Reason: itchiness Last Admin: 12/12/16 18:34 Dose: 25 mg Enoxaparin Sodium (Lovenox) 40 mg SC DAILY [facility] Last Admin: 12/13/16 11:12 Dose: 40 mg Famotidine (Pepcid) 20 mg PO DAILY [facility] Last Admin: 12/13/16 09:24 Dose: 20 mg Gabapentin (Neurontin) 600 mg PO BID [facility] Last Admin: 12/13/16 18:13 Dose: 600 mg Glipizide (Glucotrol) 10 mg PO BID [facility] Hydralazine HCl (Apresoline) 10 mg IVP Q6H PRN PRN Reason: Shortness of Breath Hydrochlorothiazide (Hydrodiuril) 25 mg PO DAILY [facility] Last Admin: 12/13/16 09:22 Dose: 25 mg Hydromorphone HCl (Dilaudid) 1 mg IVP Q4H PRN PRN Reason: Pain, severe (8-10) Last Admin: 12/12/16 21:41 Dose: 1 mg Piperacillin Sod/Tazobactam Sod (Zosyn 3.375 Gm Iv Premix) 3.375 gm in 50 mls @ 100 mls/hr IVPB Q8H [facility] Last Admin: 12/13/16 17:09 Dose: Not Given Vancomycin/Sodium Chloride (Vancocin) 1 gm in 200 mls @ 133.333 mls/hr IVPB Q24H [facility] Stop: 12/17/16 21:31 Last Admin: 12/12/16 21:42 Dose: 133.333 mls/hr Insulin Human Regular (Novolin R) 0 unit SC ACHS [facility] PRN Reason: Protocol Last Admin: 12/13/16 16:41 Dose: 3 unit Losartan Potassium (Cozaar) 50 mg PO DAILY [facility] Last Admin: 12/13/16 09:21 Dose: 50 mg Metoprolol Tartrate (Lopressor) 25 mg PO DAILY [facility] Last Admin: 12/13/16 09:23 Dose: 25 mg Mupirocin (Bactroban Ointment) 0 gm TOP BID [facility] Last Admin: 12/13/16 18:13 Dose: 1 applic Nicotine (Nicoderm Cq) 1 patch TD DAILY [facility] Last Admin: 12/13/16 09:24 Dose: 1 patch Vrdaz-2-Zygc Ethyl Esters (Lovaza) 1 gm PO DAILY [facility] Last Admin: 12/13/16 09:24 Dose: 1 gm Ondansetron HCl (Zofran Inj) 4 mg IVP Q6 PRN PRN Reason: Nausea/Vomiting Last Admin: 12/10/16 21:13 Dose: 4 mg Rosuvastatin Calcium (Crestor) 20 mg PO HS [facility] Last Admin: 12/12/16 21:40 Dose: 20 mg Saccharomyces Boulardii (Florastor) 250 mg PO DAILY [facility] Last Admin: 12/13/16 09:27 Dose: 250 mg Sitagliptin Phosphate (Januvia) 100 mg PO DAILY [facility] Last Admin: 12/13/16 09:22 Dose: 100 mg - Labs Labs: 12/13/16 06:18 12/13/16 06:18 PT 13.0 SECONDS (9.7-12.2) H 12/08/16 12:25 INR 1.2 12/08/16 12:25 APTT 35 SECONDS (21-34) H 12/08/16 12:25 Attending/Attestation - Attestation I have personally seen and examined this patient.: Yes I have fully participated in the care of the patient.: Yes I have reviewed all pertinent clinical information, including history, physical exam and plan: Yes Notes (Text): 12/13/16 19:30 Patient was seen and examined at 11:30 AM 12/13/16 ICU Bed 1 Exam, Assessment and Plan were thoroughly gone over with the Oil Gas And Pipe Tester. Right LE Medial Malleoli Ulcer is actually an eschar measuring 0.5 cm in diameter with no surrounding signs of cellulitis. Will follow up with Podiatry to see if the Zosyn and Vancomycin can be discontinued. Also on exam, Capillary Refill was 4 seconds on the Right LE; Pulses in the bilateral LE were palpable but not as strong as the bilateral UE; there was NO cyanosis of the extremities and they were warm to the touch. Patient was for Angioplasty with Stent Placment for Right LE at [place] today. Saleem Hassan D.O.
[2016-12-13] MEDS: Vancomycin 1 gm/NS 200 ml 1 GM/200 ML BAG IVPB SCH (21:24)
[2016-12-13] MEDS: HYDROmorphone 1 mg/ml ISec IVP PRN (21:32)
[2016-12-13 22:24] LABS: BASO % 0.8 % (0.0-2.0); EOS # 0.1 K/uL (0.0-0.7); LYMPH # 1.1 K/uL (1.0-4.3); LYMPH % 22.9 % (20.0-40.0); MEAN CELL VOLUME 81.7 fL (81.0-99.0); MEAN CORPUSCULAR HEMOGLOBIN 27.3 pg (27.0-31.0); MEAN CORPUSCULAR HGB CONC 33.4 g/dL (33.0-37.0); MEAN PLATELET VOLUME 9.7 fL (7.2-11.7); MONO # 0.4 K/uL (0.0-0.8); MONO % 8.2 % (0.0-10.0); NEUT # 3.1 K/uL (1.8-7.0); NEUT % 65.1 % (50.0-75.0); RBC 3.3 Mil/uL (3.80-5.20); RED CELL DISTRIBUTION WIDTH 13.8 % (11.5-14.5); WHITE BLOOD COUNT 4.8 K/uL (4.8-10.8)
--- NOTE | 2016-12-13 22:41 | CP.PCM.PN ---
Subjective - Date & Time of Evaluation Date of Evaluation: 12/13/16 Time of Evaluation: 17:30 - Subjective Subjective: Patient seen and evaluated Drop in Hgb Work up in progress Objective - Vital Signs/Intake and Output Vital Signs (last 24 hours): Temp Pulse Resp BP Pulse Ox 98.7 F 73 16 133/111 H 97 12/13/16 20:00 12/13/16 20:18 12/13/16 20:18 12/13/16 20:18 12/13/16 20:18 Intake and Output: 12/13/16 12/14/16 18:59 06:59 Intake Total 925 Output Total 1050 Balance -125 - Medications Medications: Current Medications Acetaminophen (Tylenol 325mg Tab) 650 mg PO Q6 PRN PRN Reason: Pain, Mild (1-3) Aspirin (Ecotrin) 81 mg PO DAILY [facility] Last Admin: 12/13/16 09:21 Dose: 81 mg Clopidogrel Bisulfate (Plavix) 75 mg PO DAILY [facility] Last Admin: 12/13/16 09:25 Dose: 75 mg Diphenhydramine HCl (Benadryl) 25 mg PO Q8H PRN PRN Reason: itchiness Last Admin: 12/12/16 18:34 Dose: 25 mg Docusate Sodium (Colace) 100 mg PO BID [facility] Last Admin: 12/13/16 19:59 Dose: 100 mg Enoxaparin Sodium (Lovenox) 40 mg SC DAILY [facility] Last Admin: 12/13/16 11:12 Dose: 40 mg Famotidine (Pepcid) 20 mg PO DAILY [facility] Last Admin: 12/13/16 09:24 Dose: 20 mg Gabapentin (Neurontin) 600 mg PO BID [facility] Last Admin: 12/13/16 18:13 Dose: 600 mg Glipizide (Glucotrol) 10 mg PO BID [facility] Hydralazine HCl (Apresoline) 10 mg IVP Q6H PRN PRN Reason: Shortness of Breath Hydrochlorothiazide (Hydrodiuril) 25 mg PO DAILY [facility] Last Admin: 12/13/16 09:22 Dose: 25 mg Hydromorphone HCl (Dilaudid) 1 mg IVP Q4H PRN PRN Reason: Pain, severe (8-10) Last Admin: 12/13/16 21:32 Dose: 1 mg Piperacillin Sod/Tazobactam Sod (Zosyn 3.375 Gm Iv Premix) 3.375 gm in 50 mls @ 100 mls/hr IVPB Q8H [facility] Last Admin: 12/13/16 21:25 Dose: 100 mls/hr Vancomycin/Sodium Chloride (Vancocin) 1 gm in 200 mls @ 133.333 mls/hr IVPB Q24H [facility] Stop: 12/17/16 21:31 Last Admin: 12/13/16 21:24 Dose: 133.333 mls/hr Insulin Human Regular (Novolin R) 0 unit SC ACHS [facility] PRN Reason: Protocol Last Admin: 12/13/16 21:55 Dose: Not Given Losartan Potassium (Cozaar) 50 mg PO DAILY [facility] Last Admin: 12/13/16 09:21 Dose: 50 mg Metoprolol Tartrate (Lopressor) 25 mg PO DAILY [facility] Last Admin: 12/13/16 09:23 Dose: 25 mg Mupirocin (Bactroban Ointment) 0 gm TOP BID [facility] Last Admin: 12/13/16 18:13 Dose: 1 applic Nicotine (Nicoderm Cq) 1 patch TD DAILY [facility] Last Admin: 12/13/16 09:24 Dose: 1 patch [id number] Ethyl Esters (Lovaza) 1 gm PO DAILY [facility] Last Admin: 12/13/16 09:24 Dose: 1 gm Ondansetron HCl (Zofran Inj) 4 mg IVP Q6 PRN PRN Reason: Nausea/Vomiting Last Admin: 12/10/16 21:13 Dose: 4 mg Rosuvastatin Calcium (Crestor) 20 mg PO HS [facility] Last Admin: 12/13/16 21:32 Dose: 20 mg Saccharomyces Boulardii (Florastor) 250 mg PO DAILY [facility] Last Admin: 12/13/16 09:27 Dose: 250 mg Sitagliptin Phosphate (Januvia) 100 mg PO DAILY [facility] Last Admin: 12/13/16 09:22 Dose: 100 mg - Labs Labs: 12/13/16 22:17 12/13/16 06:18 PT 13.0 SECONDS (9.7-12.2) H 12/08/16 12:25 INR 1.2 12/08/16 12:25 APTT 35 SECONDS (21-34) H 12/08/16 12:25
[2016-12-14] MEDS: Piperacill/Tazo 3.375gm in Dex 3.375 GM/50 ML BAG IVPB SCH ×3 (05:59→22:28)
[2016-12-14 06:26] LABS: BASO % 0.8 % (0.0-2.0); EOS # 0.2 K/uL (0.0-0.7); EOS % 3.5 % (0.0-4.0); HEMOGLOBIN 9.5 g/dL (11.0-16.0); LYMPH # 0.9 K/uL (1.0-4.3); LYMPH % 19.5 % (20.0-40.0); MEAN CELL VOLUME 81.3 fL (81.0-99.0); MEAN CORPUSCULAR HEMOGLOBIN 27.1 pg (27.0-31.0); MEAN CORPUSCULAR HGB CONC 33.4 g/dL (33.0-37.0); MEAN PLATELET VOLUME 9.5 fL (7.2-11.7); MONO # 0.4 K/uL (0.0-0.8); MONO % 9.3 % (0.0-10.0); NEUT # 3.2 K/uL (1.8-7.0); NEUT % 66.9 % (50.0-75.0); RBC 3.49 Mil/uL (3.80-5.20); RED CELL DISTRIBUTION WIDTH 13.8 % (11.5-14.5); WHITE BLOOD COUNT 4.7 K/uL (4.8-10.8)
[2016-12-14 06:39] LABS: GFR AFRICAN-AMERICAN > 60; GFR NON-AFRICAN AMERICAN 55
[2016-12-14 06:40] LABS: ALT/SGPT 33 U/L (9-52); AST/SGOT 26 U/L (14-36); BLOOD UREA NITROGEN 19 mg/dL (7-17)
[2016-12-14 06:41] LABS: CALCIUM 8.4 mg/dl (8.6-10.4)
--- NOTE | 2016-12-14 07:46 | CP.PCM.PN ---
Subjective - Date & Time of Evaluation Date of Evaluation: 12/14/16 Time of Evaluation: 07:00 - Subjective Subjective: Patient was seen and examined at bedside. Patient was lying comfortably in bed. She had no complaints. She said she was npo and was awaiting her procedure with Dr Alvarado (cardiology) later today at 2:30pm. She denied chest pain, leg pain, shortness of breath, headache, fever, nausea, vomiting, diarrhea. Objective - Vital Signs/Intake and Output Vital Signs (last 24 hours): Temp Pulse Resp BP Pulse Ox 98 F 64 14 154/64 H 97 12/14/16 05:00 12/14/16 07:00 12/14/16 07:00 12/14/16 06:49 12/14/16 07:00 Intake and Output: 12/14/16 12/14/16 06:59 18:59 Intake Total 750 Output Total 700 Balance 50 - Medications Medications: Current Medications Acetaminophen (Tylenol 325mg Tab) 650 mg PO Q6 PRN PRN Reason: Pain, Mild (1-3) Aspirin (Ecotrin) 81 mg PO DAILY [facility] Last Admin: 12/13/16 09:21 Dose: 81 mg Clopidogrel Bisulfate (Plavix) 75 mg PO DAILY [facility] Last Admin: 12/13/16 09:25 Dose: 75 mg Diphenhydramine HCl (Benadryl) 25 mg PO Q8H PRN PRN Reason: itchiness Last Admin: 12/13/16 23:09 Dose: 25 mg Docusate Sodium (Colace) 100 mg PO BID [facility] Last Admin: 12/13/16 19:59 Dose: 100 mg Enoxaparin Sodium (Lovenox) 40 mg SC DAILY [facility] Last Admin: 12/13/16 11:12 Dose: 40 mg Famotidine (Pepcid) 20 mg PO DAILY [facility] Last Admin: 12/13/16 09:24 Dose: 20 mg Gabapentin (Neurontin) 600 mg PO BID [facility] Last Admin: 12/13/16 18:13 Dose: 600 mg Glipizide (Glucotrol) 10 mg PO BID [facility] Hydralazine HCl (Apresoline) 10 mg IVP Q6H PRN PRN Reason: Shortness of Breath Hydrochlorothiazide (Hydrodiuril) 25 mg PO DAILY [facility] Last Admin: 12/13/16 09:22 Dose: 25 mg Hydromorphone HCl (Dilaudid) 1 mg IVP Q4H PRN PRN Reason: Pain, severe (8-10) Last Admin: 12/13/16 21:32 Dose: 1 mg Piperacillin Sod/Tazobactam Sod (Zosyn 3.375 Gm Iv Premix) 3.375 gm in 50 mls @ 100 mls/hr IVPB Q8H [facility] Last Admin: 12/14/16 05:59 Dose: 100 mls/hr Vancomycin/Sodium Chloride (Vancocin) 1 gm in 200 mls @ 133.333 mls/hr IVPB Q24H [facility] Stop: 12/17/16 21:31 Last Admin: 12/13/16 21:24 Dose: 133.333 mls/hr Insulin Human Regular (Novolin R) 0 unit SC ACHS [facility] PRN Reason: Protocol Last Admin: 12/13/16 21:55 Dose: Not Given Losartan Potassium (Cozaar) 50 mg PO DAILY [facility] Last Admin: 12/13/16 09:21 Dose: 50 mg Metoprolol Tartrate (Lopressor) 25 mg PO DAILY [facility] Last Admin: 12/13/16 09:23 Dose: 25 mg Mupirocin (Bactroban Ointment) 0 gm TOP BID [facility] Last Admin: 12/13/16 18:13 Dose: 1 applic Nicotine (Nicoderm Cq) 1 patch TD DAILY [facility] Last Admin: 12/13/16 09:24 Dose: 1 patch Treru-4-Gmon Ethyl Esters (Lovaza) 1 gm PO DAILY [facility] Last Admin: 12/13/16 09:24 Dose: 1 gm Ondansetron HCl (Zofran Inj) 4 mg IVP Q6 PRN PRN Reason: Nausea/Vomiting Last Admin: 12/10/16 21:13 Dose: 4 mg Rosuvastatin Calcium (Crestor) 20 mg PO HS [facility] Last Admin: 12/13/16 21:32 Dose: 20 mg Saccharomyces Boulardii (Florastor) 250 mg PO DAILY [facility] Last Admin: 12/13/16 09:27 Dose: 250 mg Sitagliptin Phosphate (Januvia) 100 mg PO DAILY [facility] Last Admin: 12/13/16 09:22 Dose: 100 mg - Labs Labs: 12/14/16 06:11 12/14/16 06:11 PT 13.0 SECONDS (9.7-12.2) H 12/08/16 12:25 INR 1.2 12/08/16 12:25 APTT 35 SECONDS (21-34) H 12/08/16 12:25 - Constitutional Appears: Well - Head Exam Head Exam: ATRAUMATIC, NORMAL INSPECTION, NORMOCEPHALIC - Eye Exam Eye Exam: EOMI, Normal appearance, PERRL - ENT Exam ENT Exam: Mucous Membranes Moist, Normal Exam - Neck Exam Neck Exam: Full ROM, Normal Inspection. absent: Lymphadenopathy - Respiratory Exam Respiratory Exam: Clear to Ausculation Bilateral, NORMAL BREATHING PATTERN - Cardiovascular Exam Cardiovascular Exam: REGULAR RHYTHM, +S1, +S2. absent: Murmur - GI/Abdominal Exam GI & Abdominal Exam: Soft, Normal Bowel Sounds. absent: Tenderness - Rectal Exam Rectal Exam: Deferred - Extremities Exam Additional comments: ulcer on right ankle - Neurological Exam Neurological Exam: Alert, Awake, Oriented x3 - Psychiatric Exam Psychiatric exam: Normal Affect, Normal Mood - Skin Skin Exam: Dry, Intact, Normal Color, Warm Assessment and Plan - Assessment and Plan (Free Text) Assessment: (1) Peripheral artery disease Assessment & Plan: 12/14: Patient scheduled for percutaneous transluminal angioplasty procedure today with Dr Alvarado at 2:30. [facility] (Dr. Alvarado)----> On board (Help appreciated) 12/13: Patient's percutaneous transluminal angioplasty procedure for today was cancelled due to low hemoglobin of 8.2. Patient was then transfused 1 unit of PRBC - As per punchboard stuffer, patient is to restart plavix, aspirin and lovenox SC and made NPO @ breakfast for tomorrow Imaging: Abdominal Angiogram (12/08/16): Essentially unremarkable CT angiogram of the abdomen pelvis. * RIGHT LOWER EXTREMITY CT ANGIOGRAM: 1. Common femoral artery profunda femoral artery normal. 2. Proximal SFA stent has significant InStent stenosis and is otherwise patent. Distal SFA stent extending the popliteal artery is occluded. The popliteal artery beyond the stent is severely stenotic. 3. Runoff shows patent anterior tibial artery. The tibioperoneal trunk is calcified. The peroneal artery is patent. The posterior tibial artery also believed to be patent. * LEFT LOWER EXTREMITY CT ANGIOGRAM: 1. Unremarkable common femoral artery profunda femoral artery. 2. SFA stent extending from proximal SFA to the popliteal artery has significant in stent stenosis and believed to be patent. 3. There is severe stenosis of popliteal artery beyond the stent. 4. Runoff shows a patent anterior tibial artery calcification near the origin. This calcification with tibioperoneal trunk. The peroneal artery is patent. There is occlusion of the distal posterior tibial artery. Lower extremity ultrasound (12/08/16) : severely decreased perfusion of the right lower extremity, noted at the superficial femoral, poplitea, and tibilar artery levels. Left: this exam reveals severely decreased perfusion of the left lower extremity, noted at the superifical femoral, popliteal, and tibial artery levels. * Right TEMI is 0.24 and left TEMI is 0.54 History of PVD: Patient was hospitalized for PVS 03/2016 and underwent ballon angioplasty, angiojet thrombectomy and TPA Status: Acute (2) Anemia Assessment & Plan: 12/14: Hgb 9.5 History of anemia * Secondary to CKD * H/H on admission (10.7/32.6) ---> (8.2/24.7) * Transfused 1 unit of PRBC (12/13/16) * Continue to monitor H/H Status: Chronic (3) Chronic kidney disease, stage 3 Assessment & Plan: Monitor BUN/Cr Patient follows-up with Dr. Coley as outpatient. Status: Chronic (4) Ulcer of right ankle Assessment & Plan: Podiatry consult ----> Help appreciated 12/08/16 Blood Cultures: no growth x2 Pending gram stain Started on vancomycin 1 gm IVPB qd and zosyn 3.375 mg IVPB q 6 (12/12/16) Lotrimin top BID Status: Acute (5) Diabetes mellitus Assessment & Plan: Accdomonique LEON - ISS low - Will hold home metformin and glipizide for procedure tomorrow - will continue home Januvia - Recent HgbA1c in 10/2016 was 8.5 Status: Chronic (6) HTN (hypertension) Assessment & Plan: Continue home medications: * Lopressor 25 mg po qd, * Losartan 50 mg po qd, * HCTZ 12.5 mg po qd * Hydralazine 10mg IVQ6h PRN SBP>160 * Monitor Status: Chronic (7) Hyperlipidemia Assessment & Plan: continue current management * Lipid Panel: T chol:98 LDL:49 HDL: 27 * Crestor 20mg POqHS Status: Chronic (8) History of deep vein thrombosis Assessment & Plan: will hold Bri Started on Lovenox 70 mg Sc BID 11/2015: TPA infusion Status: Chronic (9) History of coronary artery disease Assessment & Plan: As per cardiology: Patient is to continue Aspirin 81mg PO daily, Plavix 75mg PO daily 12/13/16: Patient is to restart aspirin, plavix and lovenox Status: Acute (10) Prophylactic measure Assessment & Plan: Therapeutic lovenox 40mg SC daily Pepcid 20mg PO daily for GI ppx Florastor 250mg PO bid Status: Acute
[2016-12-14] MEDS: (Novolin R) Insulin Human Regular 100 units/ml vial SC SCH ×4 (08:04→21:33)
--- NOTE | 2016-12-14 09:03 | CP.CCUPN ---
CCU Subjective - Physician Review Events Since Last Encounter (Free Text): 12/14/16 09:01 Pt S&E. Procedure yesterday canceled due to drop in hemoglobin. s/p 1 unit pRBC. HgB today up to 9.5 from 9.0. Pt reports she finally had BM earlier this morning. Pain in extremities improved. Plan for procedure today ~2:30PM w / Dr Alvarado CCU Objective - Vital Signs / Intake & Output Vital Signs (Last 4 hours): Vital Signs Pulse Resp BP Pulse Ox 12/14/16 07:00 64 14 97 12/14/16 06:49 65 15 154/64 H 97 12/14/16 06:34 65 17 163/57 H 96 12/14/16 06:19 71 17 165/69 H 97 12/14/16 06:04 78 14 98 12/14/16 06:00 69 13 97 12/14/16 05:49 74 12 157/59 H 88 L 12/14/16 05:34 68 14 177/67 H 95 12/14/16 05:19 69 17 164/63 H 94 L 12/14/16 05:04 71 17 172/66 H 95 Intake and Output (Last 8hrs): Intake & Output 12/13/16 12/14/16 12/14/16 22:59 06:59 14:59 Intake Total 1275 100 Output Total 550 350 Balance 725 -250 Intake: Intake, IV Amount 250 50 Left Forearm 250 50 Oral 700 50 Blood Product 325 Red Blood Cells Cpd As1 325 Lr Unit [id number] Output: Urine 550 350 Urine, Voided 550 350 Other: # Voids Urine, Voided 1 - Physical Exam Head: Positive for: Atraumatic, Normocephalic Pupils: Positive for: PERRL Extroacular Muscles: Positive for: EOMI Conjunctiva: Positive for: Normal Ears: Positive for: Normal Mouth: Positive for: Moist Mucous Membranes Neck: Positive for: Normal Range of Motion, Trachea Midline. Negative for: JVD , Lymphadenopathy, Bruit Respiratory/Chest: Positive for: Clear to Auscultation, Good Air Exchange. Negative for: Respiratory Distress, Accessory Muscle Use, Wheezes, Rales Cardiovascular: Positive for: Regular Rate and Rhythm, Normal S1, S2, Peripheal Pulses Present. Negative for: Murmurs Abdomen: Positive for: Normal Bowel Sounds. Negative for: Tenderness, Distention Upper Extremity: Positive for: Normal Inspection. Negative for: Cyanosis, Edema Lower Extremity: Positive for: Normal Inspection, NORMAL PULSES, Other (left groin site C/D/I. EKOS has been removed). Negative for: Edema, CALF TENDERNESS Neurological: Positive for: Speech Normal Skin: Positive for: Warm, Dry, Rashes ( Right Medial Malleoli Eschar) Psychiatric: Positive for: Alert, Oriented x 3 - Medications Active Medications: Active Medications Generic Name Dose Route Start Last Admin Trade Name Freq PRN Reason Stop Dose Admin Acetaminophen 650 mg 12/11/16 09:29 Tylenol 325mg Tab PO Q6 PRN Pain, Mild (1-3) Aspirin 81 mg 12/11/16 17:45 12/13/16 09:21 Ecotrin PO 81 mg DAILY PERRY Administration Clopidogrel Bisulfate 75 mg 12/11/16 17:45 12/13/16 09:25 Plavix PO 75 mg DAILY PERRY Administration Diphenhydramine HCl 25 mg 12/11/16 13:15 12/13/16 23:09 Benadryl PO 25 mg Q8H PRN Administration itchiness Docusate Sodium 100 mg 12/13/16 19:45 12/13/16 19:59 Colace PO 100 mg BID PERRY Administration Enoxaparin Sodium 40 mg 12/13/16 10:00 12/13/16 11:12 Lovenox SC 40 mg DAILY PERRY Administration Famotidine 20 mg 12/11/16 10:00 12/13/16 09:24 Pepcid PO 20 mg DAILY PERRY Administration Gabapentin 600 mg 12/08/16 18:00 12/13/16 18:13 Neurontin PO 600 mg BID PERRY Administration Glipizide 10 mg 12/08/16 18:00 Glucotrol PO BID PERRY Hydralazine HCl 10 mg 12/10/16 17:11 Apresoline IVP Q6H PRN Shortness of Breath Hydrochlorothiazide 25 mg 12/12/16 10:00 12/13/16 09:22 Hydrodiuril PO 25 mg DAILY PERRY Administration Hydromorphone HCl 1 mg 12/10/16 17:15 12/13/16 21:32 Dilaudid IVP 1 mg Q4H PRN Administration Pain, severe (8-10) Piperacillin Sod/Tazobactam Sod 3.375 gm in 50 mls @ 100 mls/hr 12/12/16 22: 00 12/14/16 05:59 Zosyn 3.375 Gm Iv Premix IVPB 100 mls/hr Q8H PERRY Administration Vancomycin/Sodium Chloride 1 gm in 200 mls @ 133.333 mls/hr 12/12/16 21:30 21:24 Vancocin IVPB 12/17/16 21:31 133.333 mls/hr Q24H PERRY Administration Insulin Human Regular 0 unit 12/08/16 22:00 12/14/16 08:04 Novolin R SC 2 unit ACHS PERRY Administration Protocol Losartan Potassium 50 mg 12/09/16 10:00 12/14/16 08:15 Cozaar PO 50 mg DAILY PERRY Administration Metoprolol Tartrate 25 mg 12/09/16 10:00 12/13/16 09:23 Lopressor PO 25 mg DAILY PERRY Administration Mupirocin 0 gm 12/10/16 10:00 12/13/16 18:13 Bactroban Ointment TOP 1 applic BID PERRY Administration Nicotine 1 patch 12/11/16 10:00 12/13/16 09:24 Nicoderm Cq TD 1 patch DAILY PERRY Administration [id number] Ethyl Esters 1 gm 12/10/16 10:00 12/13/16 09:24 Lovaza PO 1 gm DAILY PERRY Administration Ondansetron HCl 4 mg 12/10/16 20:57 12/10/16 21:13 Zofran Inj IVP 4 mg Q6 PRN Administration Nausea/Vomiting Rosuvastatin Calcium 20 mg 12/08/16 22:00 12/13/16 21:32 Crestor PO 20 mg HS PERRY Administration Saccharomyces Boulardii 250 mg 12/09/16 10:00 12/13/16 09:27 Florastor PO 250 mg DAILY PERRY Administration Sitagliptin Phosphate 100 mg 12/09/16 10:00 12/13/16 09:22 Januvia PO 100 mg DAILY PERRY Administration - Patient Studies Lab Studies: Microbiology Studies 12/08/16 19:30 Blood Culture - Final Blood NO GROWTH AFTER 5 DAYS Gram Stain - Final TEST NOT PERFORMED 12/08/16 19:50 Blood Culture - Final Blood NO GROWTH AFTER 5 DAYS Gram Stain - Final TEST NOT PERFORMED Lab Studies 12/14/16 12/14/16 12/14/16 Range/Units 07:29 06:11 06:11 WBC 4.7 L (4.8-10.8) K/uL RBC 3.49 L (3.80-5.20) Mil/uL Hgb 9.5 L (11.0-16.0) g/dL Hct 28.4 L (34.0-47.0) % MCV 81.3 (81.0-99.0) fL MCH 27.1 (27.0-31.0) pg MCHC 33.4 (33.0-37.0) g/dL RDW 13.8 (11.5-14.5) % Plt Count 115 L (130-400) K/uL MPV 9.5 (7.2-11.7) fL Neut % (Auto) 66.9 (50.0-75.0) % Lymph % (Auto) 19.5 L (20.0-40.0) % Vermilion % (Auto) 9.3 (0.0-10.0) % Eos % (Auto) 3.5 (0.0-4.0) % Baso % (Auto) 0.8 (0.0-2.0) % Neut # 3.2 (1.8-7.0) K/uL Lymph # 0.9 L (1.0-4.3) K/uL Vermilion # 0.4 (0.0-0.8) K/uL Eos # 0.2 (0.0-0.7) K/uL Baso # 0.0 (0.0-0.2) K/uL Sodium 136 (132-148) mmol/L Potassium 4.2 (3.6-5.2) mmol/L Chloride 102 (98-107) mmol/L Carbon Dioxide 26 (22-30) mmol/L Anion Gap 13 (10-20) BUN 19 H (7-17) mg/dL Creatinine 1.0 (0.7-1.2) MG/DL Est GFR ( Amer) > 60 Est GFR (Non-Af Amer) 55 POC Glucose (mg/dL) 219 H (65-110) mg/dL Random Glucose 203 H (65-105) mg/dL Calcium 8.4 L (8.6-10.4) mg/dl Phosphorus 3.8 (2.5-4.5) mg/dL Magnesium 2.0 (1.6-2.3) mg/dL Total Bilirubin 0.9 (0.2-1.3) mg/dL AST 26 (14-36) U/L ALT 33 (9-52) U/L Alkaline Phosphatase 58 (38-126) U/L Total Protein 5.9 L (6.3-8.3) g/dL Albumin 3.0 L (3.5-5.0) g/dL Globulin 2.9 (2.2-3.9) gm/dL Albumin/Globulin Ratio 1.0 (1.0-2.1) Blood Type Antibody Screen 12/13/16 12/13/16 12/13/16 Range/Units 22:17 21:54 16:35 WBC 4.8 (4.8-10.8) K/uL RBC 3.30 L (3.80-5.20) Mil/uL Hgb 9.0 L (11.0-16.0) g/dL Hct 27.0 L (34.0-47.0) % MCV 81.7 (81.0-99.0) fL MCH 27.3 (27.0-31.0) pg MCHC 33.4 (33.0-37.0) g/dL RDW 13.8 (11.5-14.5) % Plt Count 113 L (130-400) K/uL MPV 9.7 (7.2-11.7) fL Neut % (Auto) 65.1 (50.0-75.0) % Lymph % (Auto) 22.9 (20.0-40.0) % Vermilion % (Auto) 8.2 (0.0-10.0) % Eos % (Auto) 3.0 (0.0-4.0) % Baso % (Auto) 0.8 (0.0-2.0) % Neut # 3.1 (1.8-7.0) K/uL Lymph # 1.1 (1.0-4.3) K/uL Vermilion # 0.4 (0.0-0.8) K/uL Eos # 0.1 (0.0-0.7) K/uL Baso # 0.0 (0.0-0.2) K/uL Sodium (132-148) mmol/L Potassium (3.6-5.2) mmol/L Chloride (98-107) mmol/L Carbon Dioxide (22-30) mmol/L Anion Gap (10-20) BUN (7-17) mg/dL Creatinine (0.7-1.2) MG/DL Est GFR ( Amer) Est GFR (Non-Af Amer) POC Glucose (mg/dL) 244 H 285 H (65-110) mg/dL Random Glucose (65-105) mg/dL Calcium (8.6-10.4) mg/dl Phosphorus (2.5-4.5) mg/dL Magnesium (1.6-2.3) mg/dL Total Bilirubin (0.2-1.3) mg/dL AST (14-36) U/L ALT (9-52) U/L Alkaline Phosphatase (38-126) U/L Total Protein (6.3-8.3) g/dL Albumin (3.5-5.0) g/dL Globulin (2.2-3.9) gm/dL Albumin/Globulin Ratio (1.0-2.1) Blood Type Antibody Screen 12/13/16 12/10/16 Range/Units 11:27 17:39 WBC (4.8-10.8) K/uL RBC (3.80-5.20) Mil/uL Hgb (11.0-16.0) g/dL Hct (34.0-47.0) % MCV (81.0-99.0) fL MCH (27.0-31.0) pg MCHC (33.0-37.0) g/dL RDW (11.5-14.5) % Plt Count (130-400) K/uL MPV (7.2-11.7) fL Neut % (Auto) (50.0-75.0) % Lymph % (Auto) (20.0-40.0) % Vermilion % (Auto) (0.0-10.0) % Eos % (Auto) (0.0-4.0) % Baso % (Auto) (0.0-2.0) % Neut # (1.8-7.0) K/uL Lymph # (1.0-4.3) K/uL Vermilion # (0.0-0.8) K/uL Eos # (0.0-0.7) K/uL Baso # (0.0-0.2) K/uL Sodium (132-148) mmol/L Potassium (3.6-5.2) mmol/L Chloride (98-107) mmol/L Carbon Dioxide (22-30) mmol/L Anion Gap (10-20) BUN (7-17) mg/dL Creatinine (0.7-1.2) MG/DL Est GFR ( Amer) Est GFR (Non-Af Amer) POC Glucose (mg/dL) 148 H (65-110) mg/dL Random Glucose (65-105) mg/dL Calcium (8.6-10.4) mg/dl Phosphorus (2.5-4.5) mg/dL Magnesium (1.6-2.3) mg/dL Total Bilirubin (0.2-1.3) mg/dL AST (14-36) U/L ALT (9-52) U/L Alkaline Phosphatase (38-126) U/L Total Protein (6.3-8.3) g/dL Albumin (3.5-5.0) g/dL Globulin (2.2-3.9) gm/dL Albumin/Globulin Ratio (1.0-2.1) Blood Type B POSITIVE Antibody Screen Negative Laboratory Results - last 24 hr 12/10/16 12/13/16 12/13/16 17:39 11:27 16:35 WBC RBC Hgb Hct MCV MCH MCHC RDW Plt Count MPV Neut % (Auto) Lymph % (Auto) Vermilion % (Auto) Eos % (Auto) Baso % (Auto) Neut # Lymph # Vermilion # Eos # Baso # Sodium Potassium Chloride Carbon Dioxide Anion Gap BUN Creatinine Est GFR ( Amer) Est GFR (Non-Af Amer) POC Glucose (mg/dL) 148 H 285 H Random Glucose Calcium Phosphorus Magnesium Total Bilirubin AST ALT Alkaline Phosphatase Total Protein Albumin Globulin Albumin/Globulin Ratio Blood Type B POSITIVE Antibody Screen Negative 12/13/16 12/13/16 12/14/16 21:54 22:17 06:11 WBC 4.8 4.7 L RBC 3.30 L 3.49 L Hgb 9.0 L 9.5 L Hct 27.0 L 28.4 L MCV 81.7 81.3 MCH 27.3 27.1 MCHC 33.4 33.4 RDW 13.8 13.8 Plt Count 113 L 115 L MPV 9.7 9.5 Neut % (Auto) 65.1 66.9 Lymph % (Auto) 22.9 19.5 L Vermilion % (Auto) 8.2 9.3 Eos % (Auto) 3.0 3.5 Baso % (Auto) 0.8 0.8 Neut # 3.1 3.2 Lymph # 1.1 0.9 L Vermilion # 0.4 0.4 Eos # 0.1 0.2 Baso # 0.0 0.0 Sodium Potassium Chloride Carbon Dioxide Anion Gap BUN Creatinine Est GFR ( Amer) Est GFR (Non-Af Amer) POC Glucose (mg/dL) 244 H Random Glucose Calcium Phosphorus Magnesium Total Bilirubin AST ALT Alkaline Phosphatase Total Protein Albumin Globulin Albumin/Globulin Ratio Blood Type Antibody Screen 12/14/16 12/14/16 06:11 07:29 WBC RBC Hgb Hct MCV MCH MCHC RDW Plt Count MPV Neut % (Auto) Lymph % (Auto) Vermilion % (Auto) Eos % (Auto) Baso % (Auto) Neut # Lymph # [place]ilion # Eos # Baso # Sodium 136 Potassium 4.2 Chloride 102 Carbon Dioxide 26 Anion Gap 13 BUN 19 H Creatinine 1.0 Est GFR ( Amer) > 60 Est GFR (Non-Af Amer) 55 POC Glucose (mg/dL) 219 H Random Glucose 203 H Calcium 8.4 L Phosphorus 3.8 Magnesium 2.0 Total Bilirubin 0.9 AST 26 ALT 33 Alkaline Phosphatase 58 Total Protein 5.9 L Albumin 3.0 L Globulin 2.9 Albumin/Globulin Ratio 1.0 Blood Type Antibody Screen Fingerstick Blood Sugar Results: 219 Review of Systems - Constitutional Constitutional: absent: Fever, Chills - Cardiovascular Cardiovascular: absent: Chest Pain - Respiratory Respiratory: absent: Cough, Dyspnea - Gastrointestinal Gastrointestinal: absent: Abdominal Pain, Nausea, Vomiting Critical Care Progress Note - Nutrition Nutrition: Nutrition Category Date Time Status NPO Diet [DIET] Diets 12/14/16 Breakfast Active Assessment/Plan - Assessment and Plan (Free Text) Assessment: Assessment: 66 year old female with past medical history of DM, HTN, HLD, PVD s/p B/L stents , hx of DVT on Eliquis and CAD s/p stent presents to hospital for B/L LE claudication. 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 Alvarado --> help appreciated Pulmonary: NC @ 2L PRN Gastrointestinal: Resume HHD NPO after breakfast Pepcid IVP Hematology: s/p 1 unit pRBC yesterday LVX 40mg Plavix 75mg Aspirin 81mg H/H (12/13/16): 8.2/24.7 Endocrine: Home meds as ordered [place]: Podiatry Consult: Dr. Rocha --> help appreciated Continue to monitor the cellulitis of the right medial ankle Renal: No MERLINE, baseline Cr normal. Will f/u labs s/p procedure BUN/Cr (12/14/16): : 19/1.0 Nephrology Consult: Dr. Coley --> help appreciated Infectious Disease: On Zosyn GI Prophylaxis: Pepcid DVT Prophylaxis: LVX 40 Disposition: For procedure today @ 2:30 - likely return to ICU to follow Discussed with Dr. Gresham - Date & Time Date: 12/14/16 Time: 09:08
[2016-12-14] MEDS: Omega-3-Acid Ethyl Esters 1 GM Cap PO SCH (10:28)
[2016-12-14] MEDS: Saccharomyces Boulardi 250 mg Cap PO SCH (10:28)
[2016-12-14] MEDS: Enoxaparin 40 mg Syringe SC SCH (10:38)
--- NOTE | 2016-12-14 11:54 | CP.PCM.PN ---
<ChacortaVaishali - Last Filed: 12/14/16 11:52> Subjective - Date & Time of Evaluation Date of Evaluation: 12/14/16 Time of Evaluation: 11:52 - Subjective Subjective: 66 y/o female seen at bedside with attending Dr. Rocha regarding right ankle ulceration and redness. Pt is AAOx3 and is in NAD. Pt denies of any pain in her feet today. Pt denies of any acute overnight events. Pt denies of any recent F/N /V/C/SOB. Objective - Vital Signs/Intake and Output Vital Signs (last 24 hours): Temp Pulse Resp BP Pulse Ox 98.4 F 77 19 173/71 H 97 12/14/16 08:00 12/14/16 09:03 12/14/16 09:03 12/14/16 10:28 12/14/16 08:04 Intake and Output: 12/14/16 12/14/16 06:59 18:59 Intake Total 750 120 Output Total 700 300 Balance 50 -180 - Medications Medications: Current Medications Acetaminophen (Tylenol 325mg Tab) 650 mg PO Q6 PRN PRN Reason: Pain, Mild (1-3) Aspirin (Ecotrin) 81 mg PO DAILY [facility] Last Admin: 12/14/16 10:30 Dose: 81 mg Clopidogrel Bisulfate (Plavix) 75 mg PO DAILY [facility] Last Admin: 12/14/16 10:29 Dose: 75 mg Diphenhydramine HCl (Benadryl) 25 mg PO Q8H PRN PRN Reason: itchiness Last Admin: 12/13/16 23:09 Dose: 25 mg Docusate Sodium (Colace) 100 mg PO BID [facility] Last Admin: 12/14/16 10:28 Dose: 100 mg Enoxaparin Sodium (Lovenox) 40 mg SC DAILY [facility] Last Admin: 12/14/16 10:38 Dose: 40 mg Famotidine (Pepcid) 20 mg PO DAILY [facility] Last Admin: 12/14/16 10:29 Dose: 20 mg Gabapentin (Neurontin) 600 mg PO BID [facility] Last Admin: 12/14/16 10:28 Dose: 600 mg Glipizide (Glucotrol) 10 mg PO BID [facility] Hydralazine HCl (Apresoline) 10 mg IVP Q6H PRN PRN Reason: Shortness of Breath Hydrochlorothiazide (Hydrodiuril) 25 mg PO DAILY [facility] Last Admin: 12/14/16 10:28 Dose: 25 mg Hydromorphone HCl (Dilaudid) 1 mg IVP Q4H PRN PRN Reason: Pain, severe (8-10) Last Admin: 12/13/16 21:32 Dose: 1 mg Piperacillin Sod/Tazobactam Sod (Zosyn 3.375 Gm Iv Premix) 3.375 gm in 50 mls @ 100 mls/hr IVPB Q8H [facility] Last Admin: 12/14/16 05:59 Dose: 100 mls/hr Vancomycin/Sodium Chloride (Vancocin) 1 gm in 200 mls @ 133.333 mls/hr IVPB Q24H [facility] Stop: 12/17/16 21:31 Last Admin: 12/13/16 21:24 Dose: 133.333 mls/hr Insulin Human Regular (Novolin R) 0 unit SC ACHS [facility] PRN Reason: Protocol Last Admin: 12/14/16 08:04 Dose: 2 unit Losartan Potassium (Cozaar) 50 mg PO DAILY [facility] Last Admin: 12/14/16 10:30 Dose: Not Given Metoprolol Tartrate (Lopressor) 25 mg PO DAILY [facility] Last Admin: 12/14/16 10:28 Dose: 25 mg Mupirocin (Bactroban Ointment) 0 gm TOP BID [facility] Last Admin: 12/14/16 10:29 Dose: 1 applic Nicotine (Nicoderm Cq) 1 patch TD DAILY [facility] Last Admin: 12/14/16 10:28 Dose: 1 patch Iiath-3-Ohkn Ethyl Esters (Lovaza) 1 gm PO DAILY [facility] Last Admin: 12/14/16 10:28 Dose: 1 gm Ondansetron HCl (Zofran Inj) 4 mg IVP Q6 PRN PRN Reason: Nausea/Vomiting Last Admin: 12/10/16 21:13 Dose: 4 mg Rosuvastatin Calcium (Crestor) 20 mg PO HS [facility] Last Admin: 12/13/16 21:32 Dose: 20 mg Saccharomyces Boulardii (Florastor) 250 mg PO DAILY [facility] Last Admin: 12/14/16 10:28 Dose: 250 mg Sitagliptin Phosphate (Januvia) 100 mg PO DAILY [facility] Last Admin: 12/14/16 10:30 Dose: Not Given - Labs Labs: 12/14/16 06:11 12/14/16 06:11 PT 13.0 SECONDS (9.7-12.2) H 12/08/16 12:25 INR 1.2 12/08/16 12:25 APTT 35 SECONDS (21-34) H 12/08/16 12:25 - Constitutional Appears: Well, Non-toxic, No Acute Distress - Extremities Exam Additional comments: Right LE focused exam: VASC: DP/PT pulses are faintly palpable 1/4, [employer]LECT[employer]GER: < 3 sec to all digits, TG: warm to cool, no pitting or non-pitting edema was observed DERM: Right ankle ulceration noted at the medial malleolus measuring 0.5cm with periwound sloughing of the superficial skin due to dry scaly skin, no fluctuance or probe to bone noted. no active drainage, no malodor, resolving erythema from yesterday noted on the medial ankle and distal medial leg NEURO: Protective sensation grossly intact ORTHO: no pain or tenderness on the palpation of the medial ankle - Neurological Exam Neurological Exam: Alert, Awake, Oriented x3 - Psychiatric Exam Psychiatric exam: Normal Affect, Normal Mood Assessment and Plan - Assessment and Plan (Free Text) Assessment: 66 y/o female seen at bedside for 1). right ankle ulcer, 2). PVD and 3). Cellulitis, resolving Plan: Pt evaluated and chart reviewed seen at bedside with attending Dr. Rocha dressing left clean,dry,intact Labs and vitals reviewed (Afebrile, WBC 4.7) patient to follow up with Dr. Rocha as outpatient in his office podiatry will continue to follow <Nelson Rocha D - Last Filed: 12/14/16 13:00> Objective - Vital Signs/Intake and Output Vital Signs (last 24 hours): Temp Pulse Resp BP Pulse Ox 98.5 F 62 18 153/63 H 99 12/14/16 12:00 12/14/16 11:59 12/14/16 11:59 12/14/16 11:59 12/14/16 11:59 Intake and Output: 12/14/16 12/14/16 06:59 18:59 Intake Total 750 240 Output Total 700 500 Balance 50 -260 - Medications Medications: Current Medications Acetaminophen (Tylenol 325mg Tab) 650 mg PO Q6 PRN PRN Reason: Pain, Mild (1-3) Aspirin (Ecotrin) 81 mg PO DAILY [facility] Last Admin: 12/14/16 10:30 Dose: 81 mg Clopidogrel Bisulfate (Plavix) 75 mg PO DAILY [facility] Last Admin: 12/14/16 10:29 Dose: 75 mg Diphenhydramine HCl (Benadryl) 25 mg PO Q8H PRN PRN Reason: itchiness Last Admin: 12/13/16 23:09 Dose: 25 mg Docusate Sodium (Colace) 100 mg PO BID [facility] Last Admin: 12/14/16 10:28 Dose: 100 mg Enoxaparin Sodium (Lovenox) 40 mg SC DAILY [facility] Last Admin: 12/14/16 10:38 Dose: 40 mg Famotidine (Pepcid) 20 mg PO DAILY [facility] Last Admin: 12/14/16 10:29 Dose: 20 mg Gabapentin (Neurontin) 600 mg PO BID [facility] Last Admin: 12/14/16 10:28 Dose: 600 mg Glipizide (Glucotrol) 10 mg PO BID [facility] Hydralazine HCl (Apresoline) 10 mg IVP Q6H PRN PRN Reason: Shortness of Breath Hydrochlorothiazide (Hydrodiuril) 25 mg PO DAILY [facility] Last Admin: 12/14/16 10:28 Dose: 25 mg Hydromorphone HCl (Dilaudid) 1 mg IVP Q4H PRN PRN Reason: Pain, severe (8-10) Last Admin: 12/13/16 21:32 Dose: 1 mg Piperacillin Sod/Tazobactam Sod (Zosyn 3.375 Gm Iv Premix) 3.375 gm in 50 mls @ 100 mls/hr IVPB Q8H [facility] Last Admin: 12/14/16 05:59 Dose: 100 mls/hr Vancomycin/Sodium Chloride (Vancocin) 1 gm in 200 mls @ 133.333 mls/hr IVPB Q24H [facility] Stop: 12/17/16 21:31 Last Admin: 12/13/16 21:24 Dose: 133.333 mls/hr Insulin Human Regular (Novolin R) 0 unit SC ACHS [facility] PRN Reason: Protocol Last Admin: 12/14/16 08:04 Dose: 2 unit Losartan Potassium (Cozaar) 50 mg PO DAILY [facility] Last Admin: 12/14/16 10:30 Dose: Not Given Metoprolol Tartrate (Lopressor) 25 mg PO DAILY [facility] Last Admin: 12/14/16 10:28 Dose: 25 mg Mupirocin (Bactroban Ointment) 0 gm TOP BID [facility] Last Admin: 12/14/16 10:29 Dose: 1 applic Nicotine (Nicoderm Cq) 1 patch TD DAILY [facility] Last Admin: 12/14/16 10:28 Dose: 1 patch [id number] Ethyl Esters (Lovaza) 1 gm PO DAILY [facility] Last Admin: 12/14/16 10:28 Dose: 1 gm Ondansetron HCl (Zofran Inj) 4 mg IVP Q6 PRN PRN Reason: Nausea/Vomiting Last Admin: 12/10/16 21:13 Dose: 4 mg Rosuvastatin Calcium (Crestor) 20 mg PO HS [facility] Last Admin: 12/13/16 21:32 Dose: 20 mg Saccharomyces Boulardii (Florastor) 250 mg PO DAILY [facility] Last Admin: 12/14/16 10:28 Dose: 250 mg Sitagliptin Phosphate (Januvia) 100 mg PO DAILY [facility] Last Admin: 12/14/16 10:30 Dose: Not Given - Labs Labs: 12/14/16 06:11 12/14/16 06:11 PT 13.0 SECONDS (9.7-12.2) H 12/08/16 12:25 INR 1.2 12/08/16 12:25 APTT 35 SECONDS (21-34) H 12/08/16 12:25 Attending/Attestation - Attestation I have personally seen and examined this patient.: Yes I have fully participated in the care of the patient.: Yes I have reviewed all pertinent clinical information, including history, physical exam and plan: Yes Notes (Text): 12/14/16 12:59 Pt seen with resident. Pt can f/u in office when D/C to home.
--- NOTE | 2016-12-14 13:09 | CP.PCM.PN ---
Subjective - Date & Time of Evaluation Date of Evaluation: 12/14/16 Time of Evaluation: 13:07 - Subjective Subjective: no complaints npo for angioplasty procedure labs noted Objective - Vital Signs/Intake and Output Vital Signs (last 24 hours): Temp Pulse Resp BP Pulse Ox 98.5 F 62 18 153/63 H 99 12/14/16 12:00 12/14/16 11:59 12/14/16 11:59 12/14/16 11:59 12/14/16 11:59 Intake and Output: 12/14/16 12/14/16 06:59 18:59 Intake Total 750 240 Output Total 700 500 Balance 50 -260 - Medications Medications: Current Medications Acetaminophen (Tylenol 325mg Tab) 650 mg PO Q6 PRN PRN Reason: Pain, Mild (1-3) Aspirin (Ecotrin) 81 mg PO DAILY [facility] Last Admin: 12/14/16 10:30 Dose: 81 mg Clopidogrel Bisulfate (Plavix) 75 mg PO DAILY [facility] Last Admin: 12/14/16 10:29 Dose: 75 mg Diphenhydramine HCl (Benadryl) 25 mg PO Q8H PRN PRN Reason: itchiness Last Admin: 12/13/16 23:09 Dose: 25 mg Docusate Sodium (Colace) 100 mg PO BID [facility] Last Admin: 12/14/16 10:28 Dose: 100 mg Enoxaparin Sodium (Lovenox) 40 mg SC DAILY [facility] Last Admin: 12/14/16 10:38 Dose: 40 mg Famotidine (Pepcid) 20 mg PO DAILY [facility] Last Admin: 12/14/16 10:29 Dose: 20 mg Gabapentin (Neurontin) 600 mg PO BID [facility] Last Admin: 12/14/16 10:28 Dose: 600 mg Glipizide (Glucotrol) 10 mg PO BID [facility] Hydralazine HCl (Apresoline) 10 mg IVP Q6H PRN PRN Reason: Shortness of Breath Hydrochlorothiazide (Hydrodiuril) 25 mg PO DAILY [facility] Last Admin: 12/14/16 10:28 Dose: 25 mg Hydromorphone HCl (Dilaudid) 1 mg IVP Q4H PRN PRN Reason: Pain, severe (8-10) Last Admin: 12/13/16 21:32 Dose: 1 mg Piperacillin Sod/Tazobactam Sod (Zosyn 3.375 Gm Iv Premix) 3.375 gm in 50 mls @ 100 mls/hr IVPB Q8H [facility] Last Admin: 12/14/16 05:59 Dose: 100 mls/hr Vancomycin/Sodium Chloride (Vancocin) 1 gm in 200 mls @ 133.333 mls/hr IVPB Q24H [facility] Stop: 12/17/16 21:31 Last Admin: 12/13/16 21:24 Dose: 133.333 mls/hr Insulin Human Regular (Novolin R) 0 unit SC ACHS [facility] PRN Reason: Protocol Last Admin: 12/14/16 08:04 Dose: 2 unit Losartan Potassium (Cozaar) 50 mg PO DAILY [facility] Last Admin: 12/14/16 10:30 Dose: Not Given Metoprolol Tartrate (Lopressor) 25 mg PO DAILY [facility] Last Admin: 12/14/16 10:28 Dose: 25 mg Mupirocin (Bactroban Ointment) 0 gm TOP BID [facility] Last Admin: 12/14/16 10:29 Dose: 1 applic Nicotine (Nicoderm Cq) 1 patch TD DAILY [facility] Last Admin: 12/14/16 10:28 Dose: 1 patch [id number] Ethyl Esters (Lovaza) 1 gm PO DAILY [facility] Last Admin: 12/14/16 10:28 Dose: 1 gm Ondansetron HCl (Zofran Inj) 4 mg IVP Q6 PRN PRN Reason: Nausea/Vomiting Last Admin: 12/10/16 21:13 Dose: 4 mg Rosuvastatin Calcium (Crestor) 20 mg PO HS [facility] Last Admin: 12/13/16 21:32 Dose: 20 mg Saccharomyces Boulardii (Florastor) 250 mg PO DAILY [facility] Last Admin: 12/14/16 10:28 Dose: 250 mg Sitagliptin Phosphate (Januvia) 100 mg PO DAILY [facility] Last Admin: 12/14/16 10:30 Dose: Not Given - Labs Labs: 12/14/16 06:11 12/14/16 06:11 PT 13.0 SECONDS (9.7-12.2) H 12/08/16 12:25 INR 1.2 12/08/16 12:25 APTT 35 SECONDS (21-34) H 12/08/16 12:25 - Constitutional Appears: Non-toxic, No Acute Distress - Head Exam Head Exam: NORMAL INSPECTION - Eye Exam Eye Exam: Normal appearance - ENT Exam ENT Exam: Mucous Membranes Moist, Normal Exam - Neck Exam Neck Exam: Normal Inspection - Respiratory Exam Respiratory Exam: Clear to Ausculation Bilateral, NORMAL BREATHING PATTERN - Cardiovascular Exam Cardiovascular Exam: REGULAR RHYTHM, RRR - GI/Abdominal Exam GI & Abdominal Exam: Distended, Soft - Extremities Exam Additional comments: left foot bandaged. chronic stasis Assessment and Plan (1) History of coronary artery disease Status: Acute (2) Peripheral artery disease Status: Acute (3) Chronic kidney disease, stage 3 Status: Chronic (4) COPD (chronic obstructive pulmonary disease) Status: Acute - Assessment and Plan (Free Text) Assessment: stable renal function continue to monitor avoid nephrotoxins
[2016-12-14] MEDS ORDERED: Iodixanol 320 MG/ML 200 ML BOTTLE IV ONE (15:06)
[2016-12-14] MEDS ORDERED: Iodixanol 320 MG/ML 100 ML BOTTLE IV ONE (15:07)
[2016-12-14] MEDS ORDERED: Midazolam 2 MG/2 ML VIAL ONE (15:09)
[2016-12-14] MEDS ORDERED: Lidocaine 2% Inj (20ml) ONE (15:15)
[2016-12-14] MEDS ORDERED: Sodium Chloride 0.9% 1,000 ML IV SCH (18:00)
[2016-12-14] MEDS: HYDROmorphone 1 mg/ml ISec IVP PRN (21:30)
[2016-12-14] MEDS: Vancomycin 1 gm/NS 200 ml 1 GM/200 ML BAG IVPB SCH (21:41)
--- NOTE | 2016-12-14 22:46 | CP.PCM.PN ---
Subjective - Date & Time of Evaluation Date of Evaluation: 12/14/16 Time of Evaluation: 17:30 - Subjective Subjective: Patient s/p Right SFA angioplasty and stent placement Continue ASA, Plavix, Statins F/U H/H IV Hydration Objective - Vital Signs/Intake and Output Vital Signs (last 24 hours): Temp Pulse Resp BP Pulse Ox 98.2 F 85 12 126/59 L 97 12/14/16 20:00 12/14/16 21:40 12/14/16 21:40 12/14/16 21:40 12/14/16 21:40 Intake and Output: 12/14/16 12/15/16 18:59 06:59 Intake Total 610 390 Output Total 1100 400 Balance -490 -10 - Medications Medications: Current Medications Acetaminophen (Tylenol 325mg Tab) 650 mg PO Q6 PRN PRN Reason: Pain, Mild (1-3) Aspirin (Ecotrin) 81 mg PO DAILY [facility] Last Admin: 12/14/16 10:30 Dose: 81 mg Clopidogrel Bisulfate (Plavix) 75 mg PO DAILY [facility] Last Admin: 12/14/16 10:29 Dose: 75 mg Diphenhydramine HCl (Benadryl) 25 mg PO Q8H PRN PRN Reason: itchiness Last Admin: 12/13/16 23:09 Dose: 25 mg Docusate Sodium (Colace) 100 mg PO BID [facility] Last Admin: 12/14/16 17:33 Dose: 100 mg Enoxaparin Sodium (Lovenox) 40 mg SC DAILY [facility] Last Admin: 12/14/16 10:38 Dose: 40 mg Famotidine (Pepcid) 20 mg PO DAILY [facility] Last Admin: 12/14/16 10:29 Dose: 20 mg Gabapentin (Neurontin) 600 mg PO BID [facility] Last Admin: 12/14/16 17:33 Dose: 600 mg Glipizide (Glucotrol) 10 mg PO BID [facility] Hydralazine HCl (Apresoline) 10 mg IVP Q6H PRN PRN Reason: Shortness of Breath Last Admin: 12/14/16 14:01 Dose: 10 mg Hydrochlorothiazide (Hydrodiuril) 25 mg PO DAILY [facility] Last Admin: 12/14/16 10:28 Dose: 25 mg Hydromorphone HCl (Dilaudid) 1 mg IVP Q4H PRN PRN Reason: Pain, severe (8-10) Last Admin: 12/14/16 21:30 Dose: 1 mg Piperacillin Sod/Tazobactam Sod (Zosyn 3.375 Gm Iv Premix) 3.375 gm in 50 mls @ 100 mls/hr IVPB Q8H [facility] Last Admin: 12/14/16 22:28 Dose: 100 mls/hr Vancomycin/Sodium Chloride (Vancocin) 1 gm in 200 mls @ 133.333 mls/hr IVPB Q24H [facility] Stop: 12/17/16 21:31 Last Admin: 12/14/16 21:41 Dose: 133.333 mls/hr Sodium Chloride (Sodium Chloride 0.9%) 1,000 mls @ 80 mls/hr IV .[id number] [facility] Stop: 12/15/16 06:00 Last Admin: 12/14/16 17:39 Dose: 80 mls/hr Insulin Human Regular (Novolin R) 0 unit SC ACHS [facility] PRN Reason: Protocol Last Admin: 12/14/16 21:33 Dose: Not Given Losartan Potassium (Cozaar) 50 mg PO DAILY [facility] Last Admin: 12/14/16 10:30 Dose: Not Given Metoprolol Tartrate (Lopressor) 25 mg PO DAILY [facility] Last Admin: 12/14/16 10:28 Dose: 25 mg Mupirocin (Bactroban Ointment) 0 gm TOP BID [facility] Last Admin: 12/14/16 17:33 Dose: 1 applic Nicotine (Nicoderm Cq) 1 patch TD DAILY [facility] Last Admin: 12/14/16 10:28 Dose: 1 patch Zdiee-[id number] Ethyl Esters (Lovaza) 1 gm PO DAILY [facility] Last Admin: 12/14/16 10:28 Dose: 1 gm Ondansetron HCl (Zofran Inj) 4 mg IVP Q6 PRN PRN Reason: Nausea/Vomiting Last Admin: 12/10/16 21:13 Dose: 4 mg Rosuvastatin Calcium (Crestor) 20 mg PO HS [facility] Last Admin: 12/14/16 21:28 Dose: 20 mg Saccharomyces Boulardii (Florastor) 250 mg PO DAILY [facility] Last Admin: 12/14/16 10:28 Dose: 250 mg Sitagliptin Phosphate (Januvia) 100 mg PO DAILY [facility] Last Admin: 12/14/16 10:30 Dose: Not Given - Labs Labs: 12/14/16 06:11 12/14/16 06:11 PT 13.0 SECONDS (9.7-12.2) H 12/08/16 12:25 INR 1.2 12/08/16 12:25 APTT 35 SECONDS (21-34) H 12/08/16 12:25
[2016-12-15] MEDS: Piperacill/Tazo 3.375gm in Dex 3.375 GM/50 ML BAG IVPB SCH (06:10)
--- NOTE | 2016-12-15 06:24 | CP.PCM.PN ---
Subjective - Date & Time of Evaluation Date of Evaluation: 12/15/16 Time of Evaluation: 07:15 - Subjective Subjective: Patient was seen and examined at bedside. Objective - Vital Signs/Intake and Output Vital Signs (last 24 hours): Temp Pulse Resp BP Pulse Ox 97.8 F 78 14 130/47 L 96 12/15/16 04:00 12/15/16 04:05 12/15/16 04:05 12/15/16 04:05 12/15/16 04:05 Intake and Output: 12/14/16 12/15/16 18:59 06:59 Intake Total 610 1300 Output Total 1100 400 Balance -490 900 - Medications Medications: Current Medications Acetaminophen (Tylenol 325mg Tab) 650 mg PO Q6 PRN PRN Reason: Pain, Mild (1-3) Aspirin (Ecotrin) 81 mg PO DAILY [facility] Last Admin: 12/14/16 10:30 Dose: 81 mg Clopidogrel Bisulfate (Plavix) 75 mg PO DAILY [facility] Last Admin: 12/14/16 10:29 Dose: 75 mg Diphenhydramine HCl (Benadryl) 25 mg PO Q8H PRN PRN Reason: itchiness Last Admin: 12/14/16 23:21 Dose: 25 mg Docusate Sodium (Colace) 100 mg PO BID [facility] Last Admin: 12/14/16 17:33 Dose: 100 mg Enoxaparin Sodium (Lovenox) 40 mg SC DAILY [facility] Last Admin: 12/14/16 10:38 Dose: 40 mg Famotidine (Pepcid) 20 mg PO DAILY [facility] Last Admin: 12/14/16 10:29 Dose: 20 mg Gabapentin (Neurontin) 600 mg PO BID [facility] Last Admin: 12/14/16 17:33 Dose: 600 mg Glipizide (Glucotrol) 10 mg PO BID [facility] Hydralazine HCl (Apresoline) 10 mg IVP Q6H PRN PRN Reason: Shortness of Breath Last Admin: 12/14/16 14:01 Dose: 10 mg Hydrochlorothiazide (Hydrodiuril) 25 mg PO DAILY [facility] Last Admin: 12/14/16 10:28 Dose: 25 mg Hydromorphone HCl (Dilaudid) 1 mg IVP Q4H PRN PRN Reason: Pain, severe (8-10) Last Admin: 12/14/16 21:30 Dose: 1 mg Piperacillin Sod/Tazobactam Sod (Zosyn 3.375 Gm Iv Premix) 3.375 gm in 50 mls @ 100 mls/hr IVPB Q8H [facility] Last Admin: 12/15/16 06:10 Dose: 100 mls/hr Vancomycin/Sodium Chloride (Vancocin) 1 gm in 200 mls @ 133.333 mls/hr IVPB Q24H [facility] Stop: 12/17/16 21:31 Last Admin: 12/14/16 21:41 Dose: 133.333 mls/hr Insulin Human Regular (Novolin R) 0 unit SC ACHS [facility] PRN Reason: Protocol Last Admin: 12/14/16 21:33 Dose: Not Given Losartan Potassium (Cozaar) 50 mg PO DAILY [facility] Last Admin: 12/14/16 10:30 Dose: Not Given Metoprolol Tartrate (Lopressor) 25 mg PO DAILY [facility] Last Admin: 12/14/16 10:28 Dose: 25 mg Mupirocin (Bactroban Ointment) 0 gm TOP BID [facility] Last Admin: 12/14/16 17:33 Dose: 1 applic Nicotine (Nicoderm Cq) 1 patch TD DAILY [facility] Last Admin: 12/14/16 10:28 Dose: 1 patch [id number] Ethyl Esters (Lovaza) 1 gm PO DAILY [facility] Last Admin: 12/14/16 10:28 Dose: 1 gm Ondansetron HCl (Zofran Inj) 4 mg IVP Q6 PRN PRN Reason: Nausea/Vomiting Last Admin: 12/10/16 21:13 Dose: 4 mg Rosuvastatin Calcium (Crestor) 20 mg PO HS [facility] Last Admin: 12/14/16 21:28 Dose: 20 mg Saccharomyces Boulardii (Florastor) 250 mg PO DAILY [facility] Last Admin: 12/14/16 10:28 Dose: 250 mg Sitagliptin Phosphate (Januvia) 100 mg PO DAILY [facility] Last Admin: 12/14/16 10:30 Dose: Not Given - Labs Labs: 12/14/16 06:11 12/14/16 06:11 PT 13.0 SECONDS (9.7-12.2) H 12/08/16 12:25 INR 1.2 12/08/16 12:25 APTT 35 SECONDS (21-34) H 12/08/16 12:25
[2016-12-15 07:21] LABS: BASO % 0.4 % (0.0-2.0); EOS # 0.1 K/uL (0.0-0.7); EOS % 2.6 % (0.0-4.0); HEMOGLOBIN 9.2 g/dL (11.0-16.0); LYMPH # 0.8 K/uL (1.0-4.3); LYMPH % 16.2 % (20.0-40.0); MEAN CELL VOLUME 82.5 fL (81.0-99.0); MEAN CORPUSCULAR HEMOGLOBIN 26.9 pg (27.0-31.0); MEAN CORPUSCULAR HGB CONC 32.5 g/dL (33.0-37.0); MEAN PLATELET VOLUME 9.7 fL (7.2-11.7); MONO # 0.4 K/uL (0.0-0.8); MONO % 8.5 % (0.0-10.0); NEUT # 3.7 K/uL (1.8-7.0); NEUT % 72.3 % (50.0-75.0); RBC 3.43 Mil/uL (3.80-5.20); RED CELL DISTRIBUTION WIDTH 13.9 % (11.5-14.5); WHITE BLOOD COUNT 5.1 K/uL (4.8-10.8)
[2016-12-15] MEDS: Omega-3-Acid Ethyl Esters 1 GM Cap PO SCH (09:19)
[2016-12-15] MEDS: Enoxaparin 40 mg Syringe SC SCH (09:21)
[2016-12-15] MEDS: (Novolin R) Insulin Human Regular 100 units/ml vial SC SCH ×2 (09:22→14:53)
[2016-12-15] MEDS: Saccharomyces Boulardi 250 mg Cap PO SCH (09:25)
[2016-12-15 09:26] LABS: ALBUMIN 2.9 g/dL (3.5-5.0)
[2016-12-15 09:28] VITALS: BP 162/79
[2016-12-15 09:29] LABS: GFR AFRICAN-AMERICAN > 60; GFR NON-AFRICAN AMERICAN 55
[2016-12-15 09:30] LABS: ALT/SGPT 39 U/L (9-52); AST/SGOT 55 U/L (14-36); BLOOD UREA NITROGEN 20 mg/dL (7-17); CALCIUM 8.4 mg/dl (8.6-10.4); MAGNESIUM 1.9 mg/dL (1.6-2.3)
[2016-12-15 11:07] VITALS: PULSE 94; RESP 24; TEMP 98.6; O2SAT 99
--- NOTE | 2016-12-15 12:27 | CP.PCM.PN ---
Subjective - Date & Time of Evaluation Date of Evaluation: 12/15/16 Time of Evaluation: 12:24 - Subjective Subjective: s/p R SFA angioplasty, stent placement Tolerated well Creat stable at 1.0 HTN remains moderately elevated No complaints No SOB, CPs, n, v, d, f, c Objective - Vital Signs/Intake and Output Vital Signs (last 24 hours): Temp Pulse Resp BP Pulse Ox 98.6 F 94 H 24 162/79 H 99 12/15/16 08:00 12/15/16 09:05 12/15/16 09:05 12/15/16 09:20 12/15/16 09:05 Intake and Output: 12/15/16 12/15/16 06:59 18:59 Intake Total 1300 305 Output Total 400 300 Balance 900 5 - Medications Medications: Current Medications Acetaminophen (Tylenol 325mg Tab) 650 mg PO Q6 PRN PRN Reason: Pain, Mild (1-3) Aspirin (Ecotrin) 81 mg PO DAILY [facility] Last Admin: 12/15/16 09:20 Dose: 81 mg Clopidogrel Bisulfate (Plavix) 75 mg PO DAILY [facility] Last Admin: 12/15/16 09:20 Dose: 75 mg Diphenhydramine HCl (Benadryl) 25 mg PO Q8H PRN PRN Reason: itchiness Last Admin: 12/14/16 23:21 Dose: 25 mg Docusate Sodium (Colace) 100 mg PO BID [facility] Last Admin: 12/15/16 09:20 Dose: 100 mg Enoxaparin Sodium (Lovenox) 40 mg SC DAILY [facility] Last Admin: 12/15/16 09:21 Dose: 40 mg Famotidine (Pepcid) 20 mg PO DAILY [facility] Last Admin: 12/15/16 09:20 Dose: 20 mg Gabapentin (Neurontin) 600 mg PO BID [facility] Last Admin: 12/15/16 09:20 Dose: 600 mg Glipizide (Glucotrol) 10 mg PO BID [facility] Hydralazine HCl (Apresoline) 10 mg IVP Q6H PRN PRN Reason: Shortness of Breath Last Admin: 12/14/16 14:01 Dose: 10 mg Hydrochlorothiazide (Hydrodiuril) 25 mg PO DAILY [facility] Last Admin: 12/15/16 09:27 Dose: 25 mg Hydromorphone HCl (Dilaudid) 1 mg IVP Q4H PRN PRN Reason: Pain, severe (8-10) Last Admin: 12/14/16 21:30 Dose: 1 mg Piperacillin Sod/Tazobactam Sod (Zosyn 3.375 Gm Iv Premix) 3.375 gm in 50 mls @ 100 mls/hr IVPB Q8H [facility] Last Admin: 12/15/16 06:10 Dose: 100 mls/hr Vancomycin/Sodium Chloride (Vancocin) 1 gm in 200 mls @ 133.333 mls/hr IVPB Q24H [facility] Stop: 12/17/16 21:31 Last Admin: 12/14/16 21:41 Dose: 133.333 mls/hr Insulin Human Regular (Novolin R) 0 unit SC ACHS PERRY PRN Reason: Protocol Last Admin: 12/15/16 09:22 Dose: 2 unit Losartan Potassium (Cozaar) 50 mg PO DAILY [facility] Last Admin: 12/15/16 09:22 Dose: Not Given Metoprolol Tartrate (Lopressor) 25 mg PO DAILY [facility] Last Admin: 12/15/16 09:20 Dose: 25 mg Mupirocin (Bactroban Ointment) 0 gm TOP BID [facility] Last Admin: 12/15/16 09:21 Dose: 1 applic Nicotine (Nicoderm Cq) 1 patch TD DAILY [facility] Last Admin: 12/15/16 09:21 Dose: 1 patch [id number] Ethyl Esters (Lovaza) 1 gm PO DAILY [facility] Last Admin: 12/15/16 09:19 Dose: 1 gm Ondansetron HCl (Zofran Inj) 4 mg IVP Q6 PRN PRN Reason: Nausea/Vomiting Last Admin: 12/10/16 21:13 Dose: 4 mg Rosuvastatin Calcium (Crestor) 20 mg PO HS [facility] Last Admin: 12/14/16 21:28 Dose: 20 mg Saccharomyces Boulardii (Florastor) 250 mg PO DAILY [facility] Last Admin: 12/15/16 09:25 Dose: 250 mg Sitagliptin Phosphate (Januvia) 100 mg PO DAILY [facility] Last Admin: 12/15/16 09:25 Dose: 100 mg - Labs Labs: 12/15/16 07:04 12/15/16 07:04 PT 13.0 SECONDS (9.7-12.2) H 12/08/16 12:25 INR 1.2 12/08/16 12:25 APTT 35 SECONDS (21-34) H 12/08/16 12:25 - Constitutional Appears: No Acute Distress, Chronically Ill - Head Exam Head Exam: ATRAUMATIC, NORMAL INSPECTION - Eye Exam Eye Exam: EOMI, Normal appearance - Neck Exam Neck Exam: Normal Inspection. absent: Tenderness - Respiratory Exam Respiratory Exam: Clear to Ausculation Bilateral, NORMAL BREATHING PATTERN - Cardiovascular Exam Cardiovascular Exam: REGULAR RHYTHM, +S1 - GI/Abdominal Exam GI & Abdominal Exam: Soft. absent: Tenderness - Extremities Exam Extremities Exam: Normal Inspection. absent: Tenderness - Neurological Exam Neurological Exam: Awake, CN II-XII Intact - Skin Skin Exam: Dry, Warm Assessment and Plan (1) CKD (chronic kidney disease) stage 2, GFR 60-89 ml/min Status: Acute (2) Peripheral artery disease Status: Acute (3) COPD (chronic obstructive pulmonary disease) Status: Acute (4) HTN (hypertension) Status: Chronic - Assessment and Plan (Free Text) Plan: Increase BP meds Will follow up renal function as outpatient- appears stable now
--- NOTE | 2016-12-15 12:36 | CP.PCM.DIS ---
Provider - Provider Date of Admission: 12/08/16 14:50 Attending physician: Saleem Hassan MD Primary care physician: Dr. Bledsoe Consults: Cardiology Dr. Alvarado Podiatry Dr. Nelson Rocha Nephrology Dr. Coley Time Spent in preparation of Discharge (in minutes): 40 Hospital Course - Lab Results Lab Results: Micro Results 12/08/16 19:30 Blood Blood Culture - Final NO GROWTH AFTER 5 DAYS 12/08/16 19:30 Blood Gram Stain - Final TEST NOT PERFORMED 12/08/16 19:50 Blood Blood Culture - Final NO GROWTH AFTER 5 DAYS 12/08/16 19:50 Blood Gram Stain - Final TEST NOT PERFORMED 12/10/16 15:00 Nose MRSA Culture (Admit) - Final MRSA NOT DETECTED Most Recent Lab Values WBC 5.1 K/uL (4.8-10.8) 12/15/16 07:04 RBC 3.43 Mil/uL (3.80-5.20) L 12/15/16 07:04 Hgb 9.2 g/dL (11.0-16.0) L 12/15/16 07:04 Hct 28.3 % (34.0-47.0) L 12/15/16 07:04 MCV 82.5 fL (81.0-99.0) 12/15/16 07:04 MCH 26.9 pg (27.0-31.0) L 12/15/16 07:04 MCHC 32.5 g/dL (33.0-37.0) L 12/15/16 07:04 RDW 13.9 % (11.5-14.5) 12/15/16 07:04 Plt Count 128 K/uL (130-400) L 12/15/16 07:04 MPV 9.7 fL (7.2-11.7) 12/15/16 07:04 Neut % (Auto) 72.3 % (50.0-75.0) 12/15/16 07:04 Lymph % (Auto) 16.2 % (20.0-40.0) L 12/15/16 07:04 Hardeman % (Auto) 8.5 % (0.0-10.0) 12/15/16 07:04 Eos % (Auto) 2.6 % (0.0-4.0) 12/15/16 07:04 Baso % (Auto) 0.4 % (0.0-2.0) 12/15/16 07:04 Neut # 3.7 K/uL (1.8-7.0) 12/15/16 07:04 Lymph # 0.8 K/uL (1.0-4.3) L 12/15/16 07:04 Hardeman # 0.4 K/uL (0.0-0.8) 12/15/16 07:04 Eos # 0.1 K/uL (0.0-0.7) 12/15/16 07:04 Baso # 0.0 K/uL (0.0-0.2) 12/15/16 07:04 Differential Comment 12/10/16 07:40 PT 13.0 SECONDS (9.7-12.2) H 12/08/16 12:25 INR 1.2 12/08/16 12:25 APTT 35 SECONDS (21-34) H 12/08/16 12:25 Sodium 133 mmol/L (132-148) 12/15/16 07:04 Potassium 3.8 mmol/L (3.6-5.2) 12/15/16 07:04 Chloride 101 mmol/L (98-107) 12/15/16 07:04 Carbon Dioxide 22 mmol/L (22-30) 12/15/16 07:04 Anion Gap 14 (10-20) 12/15/16 07:04 BUN 20 mg/dL (7-17) H 12/15/16 07:04 Creatinine 1.0 MG/DL (0.7-1.2) 12/15/16 07:04 Est GFR ( Amer) > 60 12/15/16 07:04 Est GFR (Non-Af Amer) 55 12/15/16 07:04 POC Glucose (mg/dL) 260 mg/dL (65-110) H 12/15/16 11:39 Random Glucose 245 mg/dL (65-105) H 12/15/16 07:04 Calcium 8.4 mg/dl (8.6-10.4) L 12/15/16 07:04 Phosphorus 4.1 mg/dL (2.5-4.5) 12/15/16 07:04 Magnesium 1.9 mg/dL (1.6-2.3) 12/15/16 07:04 Total Bilirubin 0.7 mg/dL (0.2-1.3) 12/15/16 07:04 AST 55 U/L (14-36) H D 12/15/16 07:04 ALT 39 U/L (9-52) 12/15/16 07:04 Alkaline Phosphatase 60 U/L (38-126) 12/15/16 07:04 Total Protein 5.8 g/dL (6.3-8.3) L 12/15/16 07:04 Albumin 2.9 g/dL (3.5-5.0) L 12/15/16 07:04 Globulin 3.0 gm/dL (2.2-3.9) 12/15/16 07:04 Albumin/Globulin Ratio 1.0 (1.0-2.1) 12/15/16 07:04 Triglycerides 128 mg/dL (0-149) 12/11/16 06:46 Cholesterol 98 mg/dL (0-199) 12/11/16 06:46 LDL Cholesterol Direct 49 mg/dL (0-129) 12/11/16 06:46 HDL Cholesterol 27 mg/dL (30-70) L 12/11/16 06:46 Urine Color Yellow (YELLOW) 12/08/16 12:11 Urine Clarity Hazy (Clear) 12/08/16 12:11 Urine pH 5.0 (5.0-8.0) 12/08/16 12:11 Ur Specific Waves 1.011 (1.003-1.030) 12/08/16 12:11 Urine Protein Negative mg/dL (NEGATIVE) 12/08/16 12:11 Urine Glucose (UA) Normal mg/dL (Normal) 12/08/16 12:11 Urine Ketones Negative mg/dL (NEGATIVE) 12/08/16 12:11 Urine Blood 1+ (NEGATIVE) H 12/08/16 12:11 Urine Nitrate Negative (NEGATIVE) 12/08/16 12:11 Urine Bilirubin Negative (NEGATIVE) 12/08/16 12:11 Urine Urobilinogen Normal mg/dL (0.2-1.0) 12/08/16 12:11 Ur Leukocyte Esterase 3+ Mariam/uL (Negative) H 12/08/16 12:11 Urine WBC (Auto) 23 /hpf (0-5) H 12/08/16 12:11 Urine RBC (Auto) 12 /hpf (0-3) H 12/08/16 12:11 Ur Squamous Epith Cells 9 /hpf (0-5) H 12/08/16 12:11 Urine Bacteria Rare (<OCC) 12/08/16 12:11 Ur Random Creatinine 110.1 mg/dL 12/12/16 18:17 Blood Type B POSITIVE 12/10/16 17:39 Antibody Screen Negative 12/10/16 17:39 - Hospital Course Hospital Course: 66 year old female with past medical history of DM, HTN, HLD, PVD s/p B/L stents , hx of DVT on Eliquis and CAD s/p stent presented to hospital 12/08/16 for B/L LE claudication. She was sent in by her igniter assembler, Dr. Alvarado. Patient stated that she has been having progressively worsening pain with walking. She was previously able to walk a few blocks but recently is limited due to pain and can only walk about 1/2 a block. Patient also c/o having cold legs and feet. Patient also notes slight erythematous skin changes on right ankle which is painful to touch. She denies having any fevers, chills, SOB, CP, abd pain, N /V/D/C, dysuria. Patient was previously hospitalized in 03/2016 for similar symptoms. At that time, she underwent balloon angioplasty, angiojet thrombectomy, and TPA. Patient was also hospitalized in 11/2015 for DVT. At that time, patient underwent TPA infusion. Upon this admission she required 1 unit of PRBC prior to undergoing Right SFA Angioplasty with Stent placement by Dr. Alvarado at [facility] on 12/14/16. She was also seen by Podiatry for Right Medial Malleoli Ulcer and was treated with Vancomycin and Zosyn. Please see below for further follow up instructions and individual assessment and plans below for further details Currrently upon FULL ROS there is NO chest pain, NO palpitations, NO SOB/Cough/ Wheezing, NO abdominal pain, NO n/v/d/c (last bowel movement was this morning 05/22 and it was normal), NO burning/pain with urination, NO lightheadedness/ dizziness, NO headache, NO new changes in vision, NO new changes in hearing, NO paresthesias (history of bilateral feet numbness/tingling but not occurring at the moment), NO diaphoresis. Exam: HEENT: NCA, EOMI, PERRLA, NO lymphadenopathy, NO thyromegaly, NO pharyngeal erythema/exudate Cardio: NS1 and NS2, NO M/R/G Resp: CTA B/L, NO R/R/W GI: BSx4 are decreased, NT, ND, NO HSM, NO guarding rebound tenderness Ext: Pulses are strong and equal, Capillary Refill is 2 seconds, NO edema, NO bleeding at left inguinal balloon angioplasty entry site Neuro: CN II through XII are grossly intact Assessment and Plan (1) Peripheral artery disease Assessment & Plan: Addiction Social Worker (Dr. Alvarado)----> On board (Help appreciated) 12/14: Underwent Right SFA Angioplast with Stent by Dr. Alvarado 12/13: Patient's percutaneous transluminal angioplasty procedure for today was cancelled due to low hemoglobin of 8.2. Patient was then transfused 1 unit of PRBC - As per igniter assembler, patient is to restart plavix, aspirin and lovenox SC and made NPO @ breakfast for tomorrow Imaging: Abdominal Angiogram (12/08/16): Essentially unremarkable CT angiogram of the abdomen pelvis. * RIGHT LOWER EXTREMITY CT ANGIOGRAM: 1. Common femoral artery profunda femoral artery normal. 2. Proximal SFA stent has significant InStent stenosis and is otherwise patent. Distal SFA stent extending the popliteal artery is occluded. The popliteal artery beyond the stent is severely stenotic. 3. Runoff shows patent anterior tibial artery. The tibioperoneal trunk is calcified. The peroneal artery is patent. The posterior tibial artery also believed to be patent. * LEFT LOWER EXTREMITY CT ANGIOGRAM: 1. Unremarkable common femoral artery profunda femoral artery. 2. SFA stent extending from proximal SFA to the popliteal artery has significant in stent stenosis and believed to be patent. 3. There is severe stenosis of popliteal artery beyond the stent. 4. Runoff shows a patent anterior tibial artery calcification near the origin. This calcification with tibioperoneal trunk. The peroneal artery is patent. There is occlusion of the distal posterior tibial artery. Lower extremity ultrasound (12/08/16) : severely decreased perfusion of the right lower extremity, noted at the superficial femoral, poplitea, and tibilar artery levels. Left: this exam reveals severely decreased perfusion of the left lower extremity, noted at the superifical femoral, popliteal, and tibial artery levels. * Right TEMI is 0.24 and left TEMI is 0.54 History of PVD: Patient was hospitalized for PVS 03/2016 and underwent ballon angioplasty, angiojet thrombectomy and TPA Status: Acute (2) Anemia Assessment & Plan: History of anemia * Secondary to CKD * H/H on admission (10.7/32.6) ---> (8.2/24.7) * Transfused 1 unit of PRBC (12/13/16) * Continue to monitor H/H Status: Chronic (3) Chronic kidney disease, stage 3 Assessment & Plan: Monitor BUN/Cr Patient follows-up with Dr. Coley as outpatient. Status: Chronic (4) Ulcer of right ankle Assessment & Plan: Podiatry consult ----> Help appreciated 12/15: Spoke with Podiatry Resident Vaishali and does not need any further antibiotics 12/08/16 Blood Cultures: no growth x2 Pending gram stain Started on vancomycin 1 gm IVPB qd and zosyn 3.375 mg IVPB q 6 (12/12/16) Lotrimin top BID Status: Acute (5) Diabetes mellitus Assessment & Plan: Accuchecks ACHS - ISS low - Will hold home metformin and glipizide for procedure tomorrow - will continue home Januvia - Recent HgbA1c in 10/2016 was 8.5 Status: Chronic (6) HTN (hypertension) Assessment & Plan: Continue home medications: * Lopressor 25 mg po qd, * Losartan 50 mg po qd, * HCTZ 12.5 mg po qd * Hydralazine 10mg IVQ6h PRN SBP>160 * Monitor Status: Chronic (7) Hyperlipidemia Assessment & Plan: continue current management * Lipid Panel: T chol:98 LDL:49 HDL: 27 * Crestor 20mg POqHS Status: Chronic (8) History of deep vein thrombosis Assessment & Plan: 12/15: Continue the Eliquis 12/08:Started on Lovenox 70 mg Sc BID 11/2015: TPA infusion Status: Chronic (9) History of coronary artery disease Assessment & Plan: 12/15: Spoke with Dr. Alvarado and patient is STOP Plavis and continue the ASA Status: Acute (10) Prophylactic measure Assessment & Plan: Therapeutic lovenox 40mg SC daily Pepcid 20mg PO daily for GI ppx Florastor 250mg PO bid Status: Acute The following instructions were explained to patient and a copy of this discharge summary was given to patient: 1). Follow up with your Primary Care Physician Dr. Bledsoe. Please bring this discharge summary with you for her review. 2). Follow up with Wildlife Control Agent Dr. Nelson Rocha in the next 7 days. Call his office for an appointment 3). Follow up with Nephologist Dr. Coley in 7 days. Call his office for an appointment. 4). Follow up with Addiction Social Worker Dr. Alvarado in 10 days. Call his office for an appointment. 5). Continue the following medications that you stated you had enough of at home : Metformin 1,000 mg 1 tablet by mouth 2x/day Glipizide 10 mg 1 tablet by mouth 2x/day Januvia 100 mg 1 tablet by mouth 1x/day Lopressor 25 mg 1 tablet by mouth 1x/day Losartan 50 mg 1 tablet by mouth 1x/day HCTZ 12.5 mg 1 tablet by mouth 1x/day Lipitor 40 mg 1 tablet by mouth 1x/day Eliquis 2.5 mg 1 tablet by mouth 2x/day Aspirin 81 mg 1 tablet by mouth 1x/day Gabapentin 600 mg 1 tablet by mouth 2x/day 6). DO NOT TAKE Plavix. 7). If there is any bleeding from the left groin area that does not stop please have some one take you to the ER. 8). Please take care. Saleem Hassan D.O. Discharge Exam - Head Exam Head Exam: ATRAUMATIC, NORMAL INSPECTION Discharge Plan - Follow Up Plan Condition: GOOD Disposition: HOME/ ROUTINE Instructions: Renal Failure Diet (DC), Peripheral Artery Disease (DC), Peripheral Artery Disease (GEN)
--- NOTE | 2016-12-15 22:18 | CP.PCM.PN ---
Subjective - Date & Time of Evaluation Date of Evaluation: 12/15/16 Time of Evaluation: 07:30 - Subjective Subjective: Patient seen and evaluated Feels better No groin hematoma For discharge today Objective - Vital Signs/Intake and Output Vital Signs (last 24 hours): Temp Pulse Resp BP Pulse Ox 98.6 F 94 H 24 162/79 H 99 12/15/16 08:00 12/15/16 09:05 12/15/16 09:05 12/15/16 09:20 12/15/16 09:05 Intake and Output: 12/15/16 12/16/16 18:59 06:59 Intake Total 305 Output Total 300 Balance 5 - Labs Labs: 12/15/16 07:04 12/15/16 07:04 PT 13.0 SECONDS (9.7-12.2) H 12/08/16 12:25 INR 1.2 12/08/16 12:25 APTT 35 SECONDS (21-34) H 12/08/16 12:25
[2016-12-16] MEDS ORDERED: Metoprolol Succinate 50 mg XL Tab PO SCH (10:00)
--- NOTE | 2016-12-20 02:44 | CARDCATH ---
PROCEDURE DATE: 12/14/2016 NAME OF THE HOSPITAL: [facility]. PERFORMING PHYSICIAN: Dr. Jb Alvarado. PROCEDURES: 1. Right lower extremity arterial angiogram. 2. Right superficial femoral artery balloon angioplasty and drug-eluting stent placement. DESCRIPTION OF PROCEDURE: After informed consent, patient was prepped and draped in the usual sterile fashion, 2% lidocaine was given in the left groin for local anesthesia. The patient was premedicated with aspirin, Plavix, and IV heparin. ACT was maintained about 250. Using micropuncture technique, 6-H[place] sheath was introduced into left common femoral artery. A 6 x 70 crossover sheath introduced into right common femoral artery. Right lower extremity angiogram was performed. The angiogram has revealed 90% mid superficial femoral artery stenosis. There is 95% in-stent stenosis in the right popliteal artery. The popliteal artery in-stent stenosis was treated using 5 x 60 balloon. Followed by 5 x 100 drug-eluting balloon angioplasty was performed. Mid superficial femoral artery was pre-dilated using 5 x 60 semi-compliant balloon. Followed by 6 x 120 Zilver PTX drug-eluting stent deployment. Excellent angiographic results with brisk flow noted till the right foot. Successful balloon angioplasty and drug-eluting stent placement of the right lower extremity artery. Excellent final angiographic results. The patient will be transferred to intensive care unit for further observation. Jb Alvarado MD
== END 2016-12-15 13:30 | disposition home or self-care (01) | DRG 253 ==
LOC: C.ER 10:17 → C.9E 14:50 → C.6T 16:01 → C.9I 12-10 13:30
PROVIDERS: ADMIT Family Medicine; ATTEND Family Medicine
PROC: 3E04317 Introduction of Other Thrombolytic into Central Vein, Percutaneous Approach (ICD-10-PCS; 2016-12-10)
PROC: 047M3ZZ Dilation of Right Popliteal Artery, Percutaneous Approach (ICD-10-PCS; 2016-12-14)
PROC: 047K341 Dilation of Right Femoral Artery with Drug-eluting Intraluminal Device, using Drug-Coated Balloon, Percutaneous Approach (ICD-10-PCS; principal; 2016-12-14 14:30)
DX: E11.51 Type 2 diabetes mellitus with diabetic peripheral angiopathy without gangrene (principal); L97.319 Non-pressure chronic ulcer of right ankle with unspecified severity; E11.22 Type 2 diabetes mellitus with diabetic chronic kidney disease; E11.622 Type 2 diabetes mellitus with other skin ulcer; L03.115 Cellulitis of right lower limb; L97.819 Non-pressure chronic ulcer of other part of right lower leg with unspecified severity; I70.233 Atherosclerosis of native arteries of right leg with ulceration of ankle; E11.628 Type 2 diabetes mellitus with other skin complications; I70.212 Atherosclerosis of native arteries of extremities with intermittent claudication, left leg; I12.9 Hypertensive chronic kidney disease with stage 1 through stage 4 chronic kidney disease, or unspecified chronic kidney disease; N18.3 Chronic kidney disease, stage 3 (moderate); F17.210 Nicotine dependence, cigarettes, uncomplicated; Z79.84 Long term (current) use of oral hypoglycemic drugs; I25.10 Atherosclerotic heart disease of native coronary artery without angina pectoris; Z95.5 Presence of coronary angioplasty implant and graft

== ENCOUNTER 2017-05-19 07:49 | Day surgery (SDC) | payer MEDICARE, MEDICAID ==
[2017-05-09 09:28] VITALS: BMI 29.0
[2017-05-19] MEDS ORDERED: Iodixanol 320 MG/ML 100 ML BOTTLE IV ONE (08:32)
[2017-05-19] MEDS ORDERED: Iodixanol 320 MG/ML 200 ML BOTTLE IV ONE ×2 (08:32→09:12)
[2017-05-19] MEDS ORDERED: Midazolam 2 MG/2 ML VIAL ONE (08:53)
[2017-05-19] MEDS ORDERED: Sodium Chloride 0.9% 500 ML IV SCH (10:30)
--- NOTE | 2017-05-19 10:59 | CP.SDSHP ---
Same Day Surgery H & P - History Proposed Procedure: peripheral angiogram Pre-Op Diagnosis: pad - Previous Medical/Surgical History Cardiac: Hypertension, ASHD/CAD, PVD Endocrine/Metabolic: Diabetes - Allergies Allergies: Allergies No Known Allergies Allergy (Verified 12/08/16 10:21) - Physical Exam Mental Status: Alert & Oriented x3 Neuro: WNL Heart: WNL Lungs: WNL GI: WNL - Impression Impression: PAD Pt. Evaluated Today:Candidate for Anesthesia & Procedure: Yes - Date & Time Date: 05/19/17 Time: 08:30 Short Stay Discharge - Short Stay Discharge Admitting Diagnosis/Reason for Visit: PVD Disposition: HOME/ ROUTINE
[2017-05-19 11:31] VITALS: TEMP 97.9
[2017-05-19 14:48] VITALS: BP 131/59; PULSE 55; RESP 20; O2SAT 98
--- NOTE | 2017-05-20 08:21 | CARDCATH ---
PERIPHERAL ANGIOGRAM REPORT PREOPERATIVE DIAGNOSIS: Peripheral vascular disease with claudication. POSTOPERATIVE DIAGNOSIS: Peripheral vascular disease with claudication. PROCEDURE PERFORMED: Retrograde access, right common femoral artery; selective catheter placement in infrarenal abdominal aorta; abdominal aortography, bilateral iliofemoral runoff, bilateral lower extremity angiography. SURGEON: Edilberto Jain MD. COMPLICATIONS: None. HISTORY: Is as follows, the patient is a 67-year-old female with a past medical history of hypertension, coronary artery disease and peripheral vascular disease, who is status post multiple bilateral endovascular interventions who has claudication. The patient has rest pain as well as symptoms with minimal exertion. She presented to [facility] for further management. CT angiogram revealed bilateral peripheral vascular disease. She is referred for angiography. DESCRIPTION OF PROCEDURE: Is as follows, after obtaining informed consent, the patient was prepped and draped in usual sterile fashion. The right groin was anesthetized with 2% lidocaine solution. A 5-American sheath was inserted into the right common femoral artery via modified Seldinger technique. A 5-American Omni Flush catheter was advanced to infrarenal abdominal aorta. Abdominal aortography was performed. The catheter was positioned at the iliac bifurcation. Bilateral iliofemoral runoff was performed. The Omni Flush and sheath were removed. Manual pressure was applied to achieve hemostasis. FINDINGS: The infrarenal abdominal aorta is free of aneurysm or dissection. Bilateral renal arteries arise normally. There is mild bilateral iliac disease. The common femoral arteries have [id number] atherosclerosis bilaterally. Bilateral superficial femoral arteries have been previously stented. The right superficial femoral artery is stented to the level of distal popliteal artery. The entire stented segment is occluded 100%. There is reconstitution at the level of the proximal right anterior tibial artery and there is single-vessel runoff to the right foot. In the left leg, the left superficial femoral artery has been stented to the proximal popliteal artery. The entire stented segment is 100% occluded. There is reconstitution at the level of the distal popliteal artery. Predominant 2-vessel runoff is noted to the left foot. CONCLUSIONS: Bilateral occluded stented segments of the superficial femoral arteries. PLAN: Patient should be referred for vascular surgery and femoropopliteal bypass. Findings have been stressed to the patient's primary transfer table operator helper, Dr. Jb Alvarado. Edilberto Jain MD [facility] # [id number]
== END 2017-05-19 14:14 | disposition home or self-care (01) ==
LOC: C.CATHLAB 07:49
PROVIDERS: ATTEND Internal Medicine Cardiovascular Disease
DX: E11.51 Type 2 diabetes mellitus with diabetic peripheral angiopathy without gangrene (principal); I70.212 Atherosclerosis of native arteries of extremities with intermittent claudication, left leg; I70.221 Atherosclerosis of native arteries of extremities with rest pain, right leg
CPT/HCPCS: 36200; 75625; 75716; J1644; J2250; J3010; J7040; Q9966

== ENCOUNTER 2017-06-24 10:03 | Day surgery (SDC) | payer MEDICARE, MEDICAID ==
[2017-06-20 10:20] VITALS: BMI 28.5
[2017-06-24] MEDS ORDERED: Iodixanol 320 MG/ML 100 ML BOTTLE IV ONE (12:51)
[2017-06-24] MEDS ORDERED: Midazolam 2 MG/2 ML VIAL ONE (12:54)
[2017-06-24] MEDS ORDERED: Propofol 10 mg/ml Inj (20 ML) ONE (12:54)
[2017-06-24] MEDS ORDERED: Iodixanol 320 MG/ML 200 ML BOTTLE IV ONE (13:10)
[2017-06-24] MEDS ORDERED: Lidocaine 2% Inj (20ml) ONE (13:13)
[2017-06-24] MEDS ORDERED: Oxycodone/Acetaminophen 5/325 mg Tab PO PRN (15:26)
--- NOTE | 2017-06-24 15:30 | PCM.SURG1 ---
Surgeon's Initial Post Op Note - Surgeon's Notes Surgeon: Dr. Nur Tenter Frame Back Tender: Chad PGY1 Type of Anesthesia: IV Sedation Anesthesia Administered By: Dr. Blunt Pre-Operative Diagnosis: PVD, occluded sfa stent, gangrene Operative Findings: see operative report Post-Operative Diagnosis: PVD, occluded sfa stent, gangrene Operation Performed: Aortofemoral angiogram with illial run off, selective catheterization of right femoral artery with pathway arthrectomy and balloon angioplasty of R SFA Specimen/Specimens Removed: N/A Estimated Blood Loss: EBL {In ML}: 20 Blood Products Given: N/A Drains Used: No Drains Post-Op Condition: Good Date of Surgery/Procedure: 06/24/17 Time of Surgery/Procedure: 13:00
[2017-06-24] MEDS ORDERED: Oxycodone/Acetaminophen 5/325 mg Tab ONE (15:49)
--- NOTE | 2017-07-01 14:19 | VAS ---
DATE: 06/24/2017 OPERATIVE ANGIOGRAM REPORT PREOPERATIVE DIAGNOSIS: Impending gangrene, right foot. PROCEDURES CARRIED OUT: Aortofemoral angiogram via left groin with selective catheterization of the right femoral artery, pathway atherectomy of the right superficial femoral artery, occluded stents, and balloon angioplasty using a drug-coated balloon of the superficial femoral artery. SURGEON: Joseph Nur Jr., MD ASSISTANTS: None. ANESTHESIOLOGIST: Staff anesthesiologist. TYPE OF ANESTHESIA: Local sedation. INDICATIONS: Patient is an older middle-aged woman with a history of extensive peripheral vascular disease and multiple interventions in both sides. She now presents with impending gangrene of two toes on the right foot. OPERATIVE FINDINGS: 1. The aorta and renal arteries are free of significant occlusive disease. Both common iliac, external iliac, internal iliac, and common femoral arteries were free of significant occlusive disease. The right profunda femoris artery was widely patent. The right superficial femoral artery was completely occluded down to the level of the anterior tibia with reconstitution only of the anterior tibial artery and runoff into the foot through a small bifurcated dorsalis pedis artery. In the left side, the previously placed stents were occluded with reconstitution of above the knee and much better collaterals of the foot. Detailed pictures were not taken of the foot below this. Subsequent to the performance of diagnostic arteriogram, a stiff-angled guidewire was advanced to the aortic bifurcation and a 7-Turkmen sheath positioned in the distal portion of the common femoral artery. Using road-mapping technique, the lesion was crossed. We were able to reenter into the anterior tibial artery. We then carried out the pathway atherectomy after heparinizing the patient and completely cleaned out the occluded stents. We then ballooned this with 6-mm balloon. The final cosmetic result was excellent. Detailed pictures of distal circulation again. It was only filled via the anterior tibial artery and that the flow was somewhat limited and the foot itself with a not good arch being seen and only two small branches of the dorsalis pedis. Subsequent to this, pressure was applied to left groin and the procedure was terminated. Blood loss for the procedure was less than 50 mL. OPERATIONS CARRIED OUT: The aortofemoral angiogram with selective catheterization of the right femoral artery, pathway atherectomy, the occluded stents in the right superficial femoral artery, and balloon angioplasty using drug-coated balloon of the superficial femoral artery. Prognosis is somewhat guarded as the runoff was somewhat limited. Joseph Nur Jr., MD cc: Nelson Rocha DPM
== END 2017-06-24 17:00 | disposition home or self-care (01) ==
LOC: C.SPRAD 10:03
PROVIDERS: ATTEND Surgery Vascular Surgery
DX: I77.1 Stricture of artery (principal); I73.9 Peripheral vascular disease, unspecified; I96 Gangrene, not elsewhere classified; I10 Essential (primary) hypertension; E78.5 Hyperlipidemia, unspecified; E11.9 Type 2 diabetes mellitus without complications; I25.10 Atherosclerotic heart disease of native coronary artery without angina pectoris
CPT/HCPCS: 36247; 37225; 75625; 75716; 75774; C1724; C1766; C1769; C1887; C1894; C2623; J1644; J2250; J2704; J3010; Q9966; Q9967

== ENCOUNTER 2017-08-08 09:11 | Inpatient (IN) | payer MEDICARE, MEDICAID ==
[2017-08-08 09:11] VITALS: BMI 28.5
[2017-08-08 10:35] LABS: BASO # 0.1 K/uL (0.0-0.2); BASO % 0.7 % (0.0-2.0); EOS # 0.1 K/uL (0.0-0.7); EOS % 0.6 % (0.0-4.0); HEMOGLOBIN 10.8 g/dL (11.0-16.0); LYMPH # 0.9 K/uL (1.0-4.3); LYMPH % 10.2 % (20.0-40.0); MEAN CELL VOLUME 78.6 fL (81.0-99.0); MEAN CORPUSCULAR HEMOGLOBIN 26.7 pg (27.0-31.0); MEAN PLATELET VOLUME 8.8 fL (7.2-11.7); MONO # 0.4 K/uL (0.0-0.8); NEUT # 7.2 K/uL (1.8-7.0); NEUT % 83.5 % (50.0-75.0); RBC 4.04 Mil/uL (3.80-5.20); RED CELL DISTRIBUTION WIDTH 13.9 % (11.5-14.5); WHITE BLOOD COUNT 8.7 K/uL (4.8-10.8)
[2017-08-08 10:42] LABS: PROTHROMBIN TIME 11.4 SECONDS (9.7-12.2)
[2017-08-08 10:49] LABS: ALBUMIN 3.8 g/dL (3.5-5.0); CALCIUM 9.5 mg/dl (8.6-10.4)
--- NOTE | 2017-08-08 11:01 | C.PDOC ---
History Of Present Illness 67 y/o female presents to ED sent by [employer] Dr. Ken rocha for admission and amputation of necrotic right 1st and 2nd toe. Patient had prior procedure by Dr. Jimenez to right leg with no improvement. Patient reports pain to area. She denies fever,chills, drainage or any other complaints at this time. PMD Dr. García Podiatry Dr. Ken Rocha Time Seen by Provider: 08/08/17 09:32 Chief Complaint (Nursing): Medical Clearance History Per: Patient History/Exam Limitations: no limitations Onset/Duration Of Symptoms: Persistent Current Symptoms Are (Timing): Still Present Severity: Moderate Past Medical History Reviewed: Historical Data, Nursing Documentation, Vital Signs Vital Signs: Last Vital Signs Temp 98.6 F 08/15/17 16:00 Pulse 58 L 08/15/17 16:00 Resp 20 08/15/17 16:00 BP 114/65 08/15/17 16:00 Pulse Ox 96 08/16/17 17:09 - Medical History PMH: Anemia, Arthritis, Back Problems (sciatica), CAD, Diabetes, HTN, Hypercholesterolemia Surgical History: Coronary Stent (X1), Tonsillectomy - [facility] Procedures ARTHROCENTESIS (07/18/14) DETACHMENT AT RIGHT FOOT, PARTIAL 1ST RAY, OPEN APPROACH (08/08/17) DETACHMENT AT RIGHT FOOT, PARTIAL 2ND RAY, OPEN APPROACH (08/08/17) DILATE R FEM ART W DRUG-ELUT INTRA, DRUG BLLN, PERC (12/08/16) DILATION OF L FEM ART WITH DRUG-ELUT INTRALUM, PERC APPROACH (10/14/15) DILATION OF LEFT EXTERNAL ILIAC VEIN, PERCUTANEOUS APPROACH (11/04/15) DILATION OF LEFT FEMORAL VEIN, PERCUTANEOUS APPROACH (11/04/15) DILATION OF R FEM ART WITH INTRALUM DEV, PERC APPROACH (10/28/15) DILATION OF R POPL ART WITH INTRALUM DEV, PERC APPROACH (10/28/15) DILATION OF RIGHT ANTERIOR TIBIAL ARTERY, PERC APPROACH (03/07/16) DILATION OF RIGHT FEMORAL ARTERY, PERCUTANEOUS APPROACH (03/07/16) DILATION OF RIGHT POPLITEAL ARTERY, PERCUTANEOUS APPROACH (12/08/16) EXTIRPATION OF MATTER FROM L EXT ILIAC VEIN, PERC APPROACH (11/04/15) EXTIRPATION OF MATTER FROM LEFT FEMORAL VEIN, PERC APPROACH (11/04/15) EXTIRPATION OF MATTER FROM R FEM ART, PERC APPROACH (10/28/15) INTRODUCE OTH THROMBOLYTIC IN CENTRAL VEIN, PERC (12/08/16) INTRODUCE OTH THROMBOLYTIC IN PERIPH VEIN, PERC (11/04/15) TRANSFUSE NONAUT RED BLOOD CELLS IN PERIPH VEIN, PERC (11/04/15) VACCINATION NEC (03/02/14) Family History: States: Diabetes - Social History Hx Tobacco Use: Yes Hx Alcohol Use: No Hx Substance Use: No - Immunization History Hx Tetanus Toxoid Vaccination: No Hx Influenza Vaccination: No Hx Pneumococcal Vaccination: Yes (PT UNSURE) Review Of Systems Except As Marked, All Systems Reviewed And Found Negative. Constitutional: Negative for: Fever, Chills Cardiovascular: Negative for: Chest Pain Respiratory: Negative for: Shortness of Breath Skin: Positive for: Other (Necrosis to right 1st and 2nd toe). Negative for: Rash Physical Exam - Physical Exam Appears: Well, Non-toxic, No Acute Distress Skin: Warm, Dry, Other (right 1st and 2nd toe necrotic/with dry gangrene and dark appearing, no obvious wounds ) Head: Normacephalic Eye(s): bilateral: Normal Inspection Oral Mucosa: Moist Neck: Supple Cardiovascular: Rhythm Regular Respiratory: Normal Breath Sounds, No Rales, No Rhonchi, No Wheezing Gastrointestinal/Abdominal: Normal Exam, Bowel Sounds, Soft, No Tenderness Extremity: Normal ROM, No Pedal Edema, No Calf Tenderness Pulses: Left Dorsalis Pedis: Normal, Right Dorsalis Pedis: Decreased (faint, Obtained with doppler) Neurological/Psych: Oriented x3, No Normal Sensation (decreased sensation to right 1st and 2nd toe) ED Course And Treatment - Laboratory Results Result Diagrams: 08/15/17 06:54 08/15/17 06:54 ECG: Interpreted By Me, Viewed By Me (NSR 70 BPM, LVH, no acute ST/T wave changes) ECG Rhythm: Sinus Rhythm ECG Interpretation: No Acute Changes Rate From EC (BPM) O2 Sat by Pulse Oximetry: 96 (RA) Pulse Ox Interpretation: Normal - Radiology CXR: Interpreted by Me, Viewed By Me CXR Interpretation: Yes: No Acute Disease. No: Infiltrates - Other Rad right foot Xray X-Ray: Interpreted by Me, Viewed By Me (no obvious gas or periosteal elevation) Progress Note: Blood work, ECG, CXR, and Right foot xray ordered and reviewed. [employer] Dr. Rocha evaluated patient in ED and requests admission to hospitalist service. - Physician Consult Information Physician Contacted: Luis Alberto Baker Outcome Of Conversation: Discussed patient with hospitalist, agrees with admission to his service for toe necrosis for amputation. Disposition - Disposition Disposition: HOSPITALIZED Disposition Time: 12:07 Condition: STABLE - Clinical Impression Clinical Impression: Necrotic toes, PVD (peripheral vascular disease), Gangrene of right foot - Scribe Statement The provider has reviewed the documentation as recorded by the Scribe Hailee Parr All medical record entries made by the Scribe were at my direction and personally dictated by me. I have reviewed the chart and agree that the record accurately reflects my personal performance of the history, physical exam, medical decision making, and the department course for this patient. I have also personally directed, reviewed, and agree with the discharge instructions and disposition. Decision To Admit - Pt Status Changed To: Hospital Disposition Of: Inpatient - Admit Certification Admit to Inpatient:: After my assessment, the patient will require hospitalization for at least two midnights. This is because of the severity of symptoms shown, intensity of services needed, and/or the medical risk in this patient being treated as an outpatient. - InPatient: Physician Admission Certification: I certify that this patient requires 2 or more midnights of care for the following reason:: see notes - . Bed Request Type: Regular Admitting Physician: Luis Alberto Baker Patient Diagnosis: Necrotic toes, PVD (peripheral vascular disease), Gangrene of right foot
--- NOTE | 2017-08-08 11:11 | RAD ---
PROCEDURE: CHEST RADIOGRAPH, 1 VIEW HISTORY: preop COMPARISON: 12/08/2016 FINDINGS: LUNGS: Clear. PLEURA: No pneumothorax or pleural fluid seen. CARDIOVASCULAR: No radiographic findings to suggest acute or significant cardiovascular disease. OSSEOUS STRUCTURES: No significant abnormalities. VISUALIZED UPPER ABDOMEN: Normal. OTHER FINDINGS: None. IMPRESSION: No active disease. No acute/significant interval changes.
--- NOTE | 2017-08-08 11:13 | CP.PCM.CON ---
<Viji Mckinney - Last Filed: 08/08/17 11:21> History of Present Illness - History of Present Illness History of Present Illness: 66 y/o female was seen and evaluated in ED concerning right foot gangrene with attending Dr. Rocha. Patient is well known to Dr. Rocha and Dr. Nur for right lower extremity vascular problem. Patient states that her right foot 1st and 2nd digit started turning black over a week ago and is now gangrenous. Patient also mentions of redness to Left foot 3rd, 4th and 5th digits. Patient is informed that podiatry (Dr. Rocha) plans for surgical amputation of right 1st and 2nd digit this coming Tuesday. Patient agrees with the podiatry plan. Pt denies of any recent F/N/V/C/SOB. Past Patient History - Infectious Disease Hx of Infectious Diseases: None - Past Medical History & Family History Past Medical History?: Yes - Past Social History Smoking Status: Former Smoker - CARDIAC Hx Hypercholesterolemia: Yes Hx Hypertension: Yes - PULMONARY Hx Respiratory Disorders: No - HEENT Hx Cataracts: Yes (BILAT. ) - RENAL Hx Chronic Kidney Disease: No - ENDOCRINE/METABOLIC Hx Endocrine Disorders: Yes Hx Diabetes Mellitus Type 2: Yes - HEMATOLOGICAL/ONCOLOGICAL Hx Anemia: Yes - INTEGUMENTARY Hx Dermatological Problems: No - MUSCULOSKELETAL/RHEUMATOLOGICAL Hx Arthritis: Yes - GASTROINTESTINAL Hx Gastrointestinal Disorders: No - GENITOURINARY/GYNECOLOGICAL Hx Genitourinary Disorders: No - PSYCHIATRIC Hx Substance Use: No - SURGICAL HISTORY Hx Coronary Stent: Yes (X1) Hx Tonsillectomy: Yes - ANESTHESIA Hx Anesthesia: Yes Hx Anesthesia Reactions: No Hx Malignant Hyperthermia: No Meds Allergies/Adverse Reactions: Allergies Allergy/AdvReac Type Severity Reaction Status Date / Time No Known Allergies Allergy Verified 08/08/17 09:20 Physical Exam - Constitutional Appears: Well, Non-toxic, No Acute Distress - Head Exam Head Exam: ATRAUMATIC - Extremities Exam Additional comments: Bilateral Lower Extremity exam: DERM: RIGHT: Right 1st and 2nd digit gangrenous with dry skin demarcation from distal tip proximally up to level of MTPJ, no fluctuance or probe to bone noted. no active drainage, no malodor, resolving erythema from yesterday noted on the medial ankle and distal medial leg LEFT: Erythema noted to Left foot 3rd 4th 5th digits extending proximally along the lateral aspect of left foot. No oipen wound noted. No drainage. No mal-odor , no probe to bone NEURO: Protective sensation grossly intact bilaterally VASC: DP/PT pulses are faintly palpable 1/4, PRODUCT RESPONSIBILITY LIAISON: < 3 sec to all digits, TG: warm to cool, no pitting or non-pitting edema was observed ORTHO: no pain or tenderness on the palpation of the medial ankle - Neurological Exam Neurological exam: Oriented x3 - Psychiatric Exam Psychiatric exam: Normal Affect, Normal Mood - Skin Skin Exam: Normal Color, Warm Results - Vital Signs Recent Vital Signs: Last Vital Signs Temp 97.5 F L 08/08/17 09:20 Pulse 98 H 08/08/17 09:20 Resp 20 08/08/17 09:20 BP 101/63 08/08/17 09:20 Pulse Ox 96 08/08/17 11:07 - Labs Result Diagrams: 08/08/17 10:30 08/08/17 10:30 Labs: Laboratory Results - last 24 hr 08/08/17 08/08/17 08/08/17 10:30 10:30 10:30 WBC 8.7 RBC 4.04 Hgb 10.8 L Hct 31.7 L MCV 78.6 L D MCH 26.7 L MCHC 34.0 RDW 13.9 Plt Count 218 MPV 8.8 Neut % (Auto) 83.5 H Lymph % (Auto) 10.2 L Price % (Auto) 5.0 Eos % (Auto) 0.6 Baso % (Auto) 0.7 Neut # (Auto) 7.2 H Lymph # (Auto) 0.9 L Price # (Auto) 0.4 Eos # (Auto) 0.1 Baso # (Auto) 0.1 PT 11.4 INR 1.0 APTT 28 Sodium 136 Potassium 3.8 Chloride 96 L Carbon Dioxide 28 Anion Gap 16 BUN 30 H Creatinine 1.3 H Est GFR ( Amer) 49 Est GFR (Non-Af Amer) 41 Random Glucose 253 H Calcium 9.5 Total Bilirubin 0.7 AST 18 ALT 27 Alkaline Phosphatase 86 Total Protein 7.5 Albumin 3.8 Globulin 3.7 Albumin/Globulin Ratio 1.0 Assessment & Plan - Assessment and Plan (Free Text) Assessment: 67 yo female patient presenting with Right foot gangrene Plan: Patient was seen evaluated at bedside ED with attending Dr. Rocha labs and vitals reviewed Right foot open to air without any dressing Patient is scheduled for RIGHT foot 1st ray and 2nd digit amputation this Tuesday with Dr. Rocha Medical clearance requested from family medicine To be admitted under Dr. García Podiatry will continue to follow in house <Nelson Rocha - Last Filed: 08/09/17 08:38> Meds - Medications Medications: Current Medications Amlodipine Besylate (Norvasc) 5 mg PO DAILY COUNT INCLUDES THE [facility] Dextrose (Dextrose 50% Inj) 0 ml IV STAT PRN; Protocol PRN Reason: Hypoglycemia Protocol Dextrose (Glutose 15) 0 gm PO ONCE PRN; Protocol PRN Reason: Hypoglycemia Protocol Famotidine (Pepcid) 20 mg PO DAILY PRN PRN Reason: Heartburn Gabapentin (Neurontin) 600 mg PO DAILY COUNT INCLUDES THE [facility] Glucagon (Glucagen Diagnostic Kit) 0 mg IM STAT PRN; Protocol PRN Reason: Hypoglycemia Protocol Sodium Chloride (Sodium Chloride 0.9%) 1,000 mls @ 75 mls/hr IV .[id number] COUNT INCLUDES THE [facility] Last Admin: 08/09/17 05:00 Dose: 75 mls/hr Dextrose (Dextrose 5% In Water 1000 Ml) 1,000 mls @ 0 mls/hr IV .Q0M PRN; Protocol; Per Protocol PRN Reason: Hypoglycemia Protocol Insulin Human Regular (Novolin R) 0 unit SC ACHS PERRY PRN Reason: Protocol Last Admin: 08/09/17 08:07 Dose: 2 unit Losartan Potassium (Cozaar) 25 mg PO DAILY COUNT INCLUDES THE [facility] Metoprolol Tartrate (Lopressor) 50 mg PO DAILY COUNT INCLUDES THE [facility] Exsqy-9-Gohn Ethyl Esters (Lovaza) 1 gm PO DAILY COUNT INCLUDES THE [facility] Oxycodone/Acetaminophen (Percocet 5/325 Mg Tab) 1 tab PO Q4 PRN PRN Reason: Pain, severe (8-10) Stop: 08/11/17 14:53 Last Admin: 08/09/17 08:05 Dose: 1 tab Rosuvastatin Calcium (Crestor) 20 mg PO DAILY COUNT INCLUDES THE [facility] Results - Vital Signs Recent Vital Signs: Last Vital Signs Temp 98.3 F 08/09/17 08:00 Pulse 64 08/09/17 08:00 Resp 20 08/09/17 08:00 BP 154/73 H 08/09/17 08:00 Pulse Ox 95 08/09/17 08:00 - Labs Result Diagrams: 08/09/17 06:51 08/09/17 06:51 Labs: Laboratory Results - last 24 hr 08/08/17 08/08/17 08/08/17 09:27 10:30 10:30 WBC 8.7 RBC 4.04 Hgb 10.8 L Hct 31.7 L MCV 78.6 L D MCH 26.7 L MCHC 34.0 RDW 13.9 Plt Count 218 MPV 8.8 Neut % (Auto) 83.5 H Lymph % (Auto) 10.2 L Price % (Auto) 5.0 Eos % (Auto) 0.6 Baso % (Auto) 0.7 Neut # (Auto) 7.2 H Lymph # (Auto) 0.9 L Price # (Auto) 0.4 Eos # (Auto) 0.1 Baso # (Auto) 0.1 PT INR APTT Sodium 136 Potassium 3.8 Chloride 96 L Carbon Dioxide 28 Anion Gap 16 BUN 30 H Creatinine 1.3 H Est GFR ( Amer) 49 Est GFR (Non-Af Amer) 41 POC Glucose (mg/dL) 238 H Random Glucose 253 H Calcium 9.5 Total Bilirubin 0.7 AST 18 ALT 27 Alkaline Phosphatase 86 Total Protein 7.5 Albumin 3.8 Globulin 3.7 Albumin/Globulin Ratio 1.0 Blood Type Antibody Screen 08/08/17 08/08/17 08/08/17 10:30 10:30 16:26 WBC RBC Hgb Hct MCV MCH MCHC RDW Plt Count MPV Neut % (Auto) Lymph % (Auto) Price % (Auto) Eos % (Auto) Baso % (Auto) Neut # (Auto) Lymph # (Auto) Price # (Auto) Eos # (Auto) Baso # (Auto) PT 11.4 INR 1.0 APTT 28 Sodium Potassium Chloride Carbon Dioxide Anion Gap BUN Creatinine Est GFR ( Amer) Est GFR (Non-Af Amer) POC Glucose (mg/dL) 234 H Random Glucose Calcium Total Bilirubin AST ALT Alkaline Phosphatase Total Protein Albumin Globulin Albumin/Globulin Ratio Blood Type B POSITIVE Antibody Screen Negative 08/08/17 08/09/17 08/09/17 21:14 06:51 06:51 WBC 5.4 RBC 3.73 L Hgb 10.0 L Hct 29.0 L MCV 77.7 L MCH 26.7 L MCHC 34.4 RDW 13.8 Plt Count 196 MPV 9.1 Neut % (Auto) 61.7 Lymph % (Auto) 28.9 Price % (Auto) 7.0 Eos % (Auto) 1.6 Baso % (Auto) 0.8 Neut # (Auto) 3.3 Lymph # (Auto) 1.6 Price # (Auto) 0.4 Eos # (Auto) 0.1 Baso # (Auto) 0.0 PT INR APTT Sodium 138 Potassium 3.7 Chloride 100 Carbon Dioxide 26 Anion Gap 15 BUN 19 H Creatinine 0.8 Est GFR ( Amer) > 60 Est GFR (Non-Af Amer) > 60 POC Glucose (mg/dL) 239 H Random Glucose 193 H Calcium 8.6 Total Bilirubin 0.4 AST 13 L D ALT 25 Alkaline Phosphatase 75 Total Protein 6.3 Albumin 3.2 L Globulin 3.1 Albumin/Globulin Ratio 1.0 Blood Type Antibody Screen 08/09/17 07:25 WBC RBC Hgb Hct MCV MCH MCHC RDW Plt Count MPV Neut % (Auto) Lymph % (Auto) Price % (Auto) Eos % (Auto) Baso % (Auto) Neut # (Auto) Lymph # (Auto) Price # (Auto) Eos # (Auto) Baso # (Auto) PT INR APTT Sodium Potassium Chloride Carbon Dioxide Anion Gap BUN Creatinine Est GFR ( Amer) Est GFR (Non-Af Amer) POC Glucose (mg/dL) 190 H Random Glucose Calcium Total Bilirubin AST ALT Alkaline Phosphatase Total Protein Albumin Globulin Albumin/Globulin Ratio Blood Type Antibody Screen Attending/Attestation - Attestation I have personally seen and examined this patient.: Yes I have fully participated in the care of the patient.: Yes I have reviewed all pertinent clinical information: Yes Notes (Text): 08/09/17 08:36 Pt seen with resident in the ER. Pt has undergone an angio a few weeks ago. Dr. Nur believes she is ready for her amputation now. Pt is scheduled for right partial 1st ray and 2nd digit amp on Tuesday. Awaiting medical clearance. Dr. Nur consulted for vasc clearance.
--- NOTE | 2017-08-08 13:44 | CP.PCM.CON ---
History of Present Illness - History of Present Illness History of Present Illness: Patient is a 67-year-old female with a PMHx of diabetes, PVD and CAD who was consulted for necrotic right 1st and 2nd toes. Patient reports that she first started getting numbness and tingling in both her feet a few weeks ago that has progressively worsened. Now she reports that she cannot walk without pain in her feet. Patient rates pain 5/10 currently, 0/10 at best and 10/10 at worst. She has tried applying Dermacil and triple ABX frequently and says that it helps. Ambulating makes the pain worse. She takes Percoset up to every 4 hours to help alleviate the pain. Patient noticed her toes started to blacken a couple weeks ago. She also notes that she hasn't taken her medications for 1 week now because she has run out. Patient had a procedure angioplasty on her right leg with Dr. Nur 2 weeks ago. PMH: diabetes, PVD, CAD, cataracts PSH: angioplasty of right leg 2 weeks ago, coronary stent 2-3 years ago, peripheral stents 2-3 years ago, tonsillectomy at 7yo, CS in 1984 Social hx: Smokes 1/4 PPD since 11 years old. Denies illicit drug use and alcohol use. , lives with daughter and granddaughter in [place] No advanced directive, full code Medical proxy - her sister Omayra Cobb [phone] Review of Systems - Review of Systems All systems: reviewed and no additional remarkable complaints except - Constitutional Constitutional: As Per HPI. absent: Chills, Fever, Headache, Weakness - EENT Eyes: absent: Blurred Vision, Change in Vision Ears: absent: Decreased Hearing Nose/Mouth/Throat: absent: Dysphagia, Sore Throat - Cardiovascular Cardiovascular: absent: Chest Pain, Dyspnea, Dyspnea on Exertion, Palpitations - Respiratory Respiratory: absent: Cough, Dyspnea, Dyspnea on Exertion - Gastrointestinal Gastrointestinal: absent: Abdominal Pain, Change in Bowel Habits, Change in Stool Character, Constipation, Diarrhea - Genitourinary Genitourinary: absent: Change in Urinary Stream, Difficulty Urinating, Dysuria, Hematuria - Musculoskeletal Musculoskeletal: Myalgias, Numbness, Tingling - Neurological Neurological: Numbness, Paresthesias, Weakness. absent: Dizziness Additional comments: left hand numbness and tingling, bilateral lower extremity numbness and tingling - Psychiatric Psychiatric: absent: Anxiety, Depression Past Patient History - Infectious Disease Hx of Infectious Diseases: None - Past Medical History & Family History Past Medical History?: Yes Pertinent Family History: Mother had PVD - Past Social History Smoking Status: Light Smoker < 10 Cigarettes Daily Chewing Tobacco Use: No Cigar Use: No Alcohol: None Drugs: Denies Home Situation {Lives}: With Family - CARDIAC Hx Cardiac Disorders: Yes Hx Circulatory Problems: Yes Hx Hypercholesterolemia: Yes Hx Hypertension: Yes Hx Peripheral Vascular Disease: Yes - PULMONARY Hx Respiratory Disorders: No - HEENT Hx Cataracts: Yes (BILAT. ) - RENAL Hx Chronic Kidney Disease: No - ENDOCRINE/METABOLIC Hx Endocrine Disorders: Yes Hx Diabetes Mellitus Type 2: Yes - HEMATOLOGICAL/ONCOLOGICAL Hx Anemia: Yes - INTEGUMENTARY Hx Dermatological Problems: No - MUSCULOSKELETAL/RHEUMATOLOGICAL Hx Arthritis: Yes - GASTROINTESTINAL Hx Gastrointestinal Disorders: No - GENITOURINARY/GYNECOLOGICAL Hx Genitourinary Disorders: No - PSYCHIATRIC Hx Substance Use: No - SURGICAL HISTORY Hx Coronary Stent: Yes (X1) Hx Tonsillectomy: Yes - ANESTHESIA Hx Anesthesia: Yes Hx Anesthesia Reactions: No Hx Malignant Hyperthermia: No Meds Allergies/Adverse Reactions: Allergies Allergy/AdvReac Type Severity Reaction Status Date / Time No Known Allergies Allergy Verified 08/08/17 09:20 Physical Exam - Constitutional Appears: Well, Non-toxic, No Acute Distress - Head Exam Head Exam: ATRAUMATIC, NORMOCEPHALIC - Eye Exam Eye Exam: EOMI, Normal appearance, PERRL Pupil Exam: NORMAL ACCOMODATION, PERRL - ENT Exam ENT Exam: Mucous Membranes Moist - Neck Exam Neck exam: Positive for: Normal Inspection - Respiratory Exam Respiratory Exam: Clear to Auscultation Bilateral, NORMAL BREATHING PATTERN. absent: Rhonchi, Wheezes, Stridor - Cardiovascular Exam Cardiovascular Exam: REGULAR RHYTHM, RRR, +S1, +S2 - GI/Abdominal Exam GI & Abdominal Exam: Normal Bowel Sounds, Soft. absent: Tenderness - Extremities Exam Additional comments: Lesions on left foot. Gangrene of right 1st and 2nd toes. - Skin Skin Exam: Normal Color Results - Vital Signs Recent Vital Signs: Last Vital Signs Temp 98.4 F 08/08/17 12:44 Pulse 85 08/08/17 12:17 Resp 16 08/08/17 12:17 BP 149/67 08/08/17 12:17 Pulse Ox 95 08/08/17 12:17 - Labs Result Diagrams: 08/08/17 10:30 08/08/17 10:30 Labs: Laboratory Results - last 24 hr 08/08/17 08/08/17 08/08/17 09:27 10:30 10:30 WBC 8.7 RBC 4.04 Hgb 10.8 L Hct 31.7 L MCV 78.6 L D MCH 26.7 L MCHC 34.0 RDW 13.9 Plt Count 218 MPV 8.8 Neut % (Auto) 83.5 H Lymph % (Auto) 10.2 L [place] % (Auto) 5.0 Eos % (Auto) 0.6 Baso % (Auto) 0.7 Neut # (Auto) 7.2 H Lymph # (Auto) 0.9 L [place] # (Auto) 0.4 Eos # (Auto) 0.1 Baso # (Auto) 0.1 PT INR APTT Sodium 136 Potassium 3.8 Chloride 96 L Carbon Dioxide 28 Anion Gap 16 BUN 30 H Creatinine 1.3 H Est GFR ( Amer) 49 Est GFR (Non-Af Amer) 41 POC Glucose (mg/dL) 238 H Random Glucose 253 H Calcium 9.5 Total Bilirubin 0.7 AST 18 ALT 27 Alkaline Phosphatase 86 Total Protein 7.5 Albumin 3.8 Globulin 3.7 Albumin/Globulin Ratio 1.0 Blood Type Antibody Screen 08/08/17 08/08/17 10:30 10:30 WBC RBC Hgb Hct MCV MCH MCHC RDW Plt Count MPV Neut % (Auto) Lymph % (Auto) [place] % (Auto) Eos % (Auto) Baso % (Auto) Neut # (Auto) Lymph # (Auto) [place] # (Auto) Eos # (Auto) Baso # (Auto) PT 11.4 INR 1.0 APTT 28 Sodium Potassium Chloride Carbon Dioxide Anion Gap BUN Creatinine Est GFR ( Amer) Est GFR (Non-Af Amer) POC Glucose (mg/dL) Random Glucose Calcium Total Bilirubin AST ALT Alkaline Phosphatase Total Protein Albumin Globulin Albumin/Globulin Ratio Blood Type B POSITIVE Antibody Screen Negative - EKG Data EKG shows normal: Sinus rhythm Assessment & Plan - Assessment and Plan (Free Text) Assessment: Patient is a 67-year-old female consulted for non-healing gangrenous first and second toe on the right. Plan: 1. Plan for amputation of right first and second toes with podiatry. 2. CTA to assess if further intervention is needed. Case discussed with Dr. Nur. Devante Beckett, PGY-3 - Date & Time Date: 08/08/17 Time: 14:38
[2017-08-08] MEDS: Sodium Chloride 0.9% 1,000 ML IV SCH (15:13)
[2017-08-08] MEDS: Oxycodone/Acetaminophen 5/325 mg Tab PO PRN ×2 (15:18→21:41)
--- NOTE | 2017-08-08 17:13 | CP.PCM.HP ---
<Latisha Le - Last Filed: 08/08/17 17:10> History of Present Illness - History of Present Illness History of Present Illness: Patient is a 67 y/o female with past medical history of diabetes, hypertension, hyperlipidemia, peripheral vascular disease, DVT, and CAD, who presents to the ED with gangrene of the 1st and 2nd digits of her right foot. She also complains of pain in her left foot due to multiple cuts on the sole. Patient denies trauma to the left foot and attributes the cuts to dryness caused by diabetes. She states the pain to her feet started couple weeks ago, with her right toes turning completely black about a week ago. She has been taking Percocet for pain and used Dermasil and Triple Antibiotics Cream on her toes. The pain does not radiate up her legs and stays localized to her feet. Patient rates the pain on her right toes a 5/10 and left foot, 10/10. She visited Dr. Nur last week concerning her toes, and he advised her to come to the hospital today for admission and amputation of her right 1st and 2nd toes on Tuesday. Patient states she has no trouble walking and has been using a cane to ambulate. Currently, patient complains of pain in her right 1st and 2nd toes and in the left sole, as well as coldness and occasional numbness and tingling to her feet bilaterally. She denies ISBELL, fever, chills, n/v, chest pain, abdominal pain, and leg swelling/pain. PMD: Dr. García Cardio: Dr. Alvarado Podiatry: Dr. Rocha Vascular: Dr. Nur PMHx: DM, HTN, HLD, PVD, DVT, CAD Social Hx: pack daily for +40 years; denies alcohol and illicit drug use Allergies: seasonal Surgery: peripheral lower extremity stents bilaterally, coronary stent (x1), tonsillectomy, FHx: motherDM; sisterdeceased at 27 y/o due to salivary gland CA; brothersdeceased due to lymphoma and [place] Meds: glipizide, metformin, gabapentin, atorvastatin, metoprolol, amlodipine, losartan, eliquis, aspirin, Pepcid, Januvia, tramadol, omega 3 Present on Admission - Present on Admission Any Indicators Present on Admission: No Review of Systems - Review of Systems All systems: reviewed and no additional remarkable complaints except (as per HPI ) Past Patient History - Infectious Disease Hx of Infectious Diseases: None - Past Medical History & Family History Past Medical History?: Yes - Past Social History Smoking Status: Light Smoker < 10 Cigarettes Daily Chewing Tobacco Use: No Cigar Use: No Alcohol: None Drugs: Denies Home Situation {Lives}: With Family - CARDIAC Hx Cardiac Disorders: Yes Hx Circulatory Problems: Yes Hx Hypercholesterolemia: Yes Hx Hypertension: Yes Hx Peripheral Vascular Disease: Yes - PULMONARY Hx Respiratory Disorders: No - HEENT Hx Cataracts: Yes (BILAT. ) - RENAL Hx Chronic Kidney Disease: No - ENDOCRINE/METABOLIC Hx Endocrine Disorders: Yes Hx Diabetes Mellitus Type 2: Yes - HEMATOLOGICAL/ONCOLOGICAL Hx Anemia: Yes - INTEGUMENTARY Hx Dermatological Problems: No - MUSCULOSKELETAL/RHEUMATOLOGICAL Hx Arthritis: Yes - GASTROINTESTINAL Hx Gastrointestinal Disorders: No - GENITOURINARY/GYNECOLOGICAL Hx Genitourinary Disorders: No - PSYCHIATRIC Hx Substance Use: No - SURGICAL HISTORY Hx Coronary Stent: Yes (X1) Hx Tonsillectomy: Yes - ANESTHESIA Hx Anesthesia: Yes Hx Anesthesia Reactions: No Hx Malignant Hyperthermia: No Meds Allergies/Adverse Reactions: Allergies Allergy/AdvReac Type Severity Reaction Status Date / Time No Known Allergies Allergy Verified 08/08/17 09:20 Physical Exam - Constitutional Appears: Non-toxic, No Acute Distress - Head Exam Head Exam: ATRAUMATIC, NORMAL INSPECTION, NORMOCEPHALIC - Eye Exam Eye Exam: EOMI, Normal appearance, PERRL - ENT Exam ENT Exam: Mucous Membranes Moist - Respiratory Exam Respiratory Exam: Clear to Auscultation Bilateral, NORMAL BREATHING PATTERN. absent: Accessory Muscle Use, Rales, Rhonchi, Wheezes, Respiratory Distress - Cardiovascular Exam Cardiovascular Exam: RRR, +S1, +S2. absent: Bradycardia, Tachycardia, Diastolic murmur, Gallop, Rubs, Systolic Murmur - GI/Abdominal Exam GI & Abdominal Exam: Normal Bowel Sounds, Soft. absent: Distended, Tenderness - Extremities Exam Additional comments: Gangrenous 1st and 2nd digits of right foot Cracked skin wound on the bottom of the left foot that are exquisitely tender - Neurological Exam Neurological exam: Alert, Oriented x3 - Psychiatric Exam Psychiatric exam: Normal Affect, Normal Mood - Skin Skin Exam: Dry, Intact, Warm Results - Vital Signs Recent Vital Signs: Last Vital Signs Temp 98.6 F 08/08/17 16:00 Pulse 62 08/08/17 16:00 Resp 20 08/08/17 16:00 BP 143/77 08/08/17 16:00 Pulse Ox 96 08/08/17 16:00 - Labs Result Diagrams: 08/08/17 10:30 08/08/17 10:30 Labs: Laboratory Results - last 24 hr 08/08/17 08/08/17 08/08/17 09:27 10:30 10:30 WBC 8.7 RBC 4.04 Hgb 10.8 L Hct 31.7 L MCV 78.6 L D MCH 26.7 L MCHC 34.0 RDW 13.9 Plt Count 218 MPV 8.8 Neut % (Auto) 83.5 H Lymph % (Auto) 10.2 L [place] % (Auto) 5.0 Eos % (Auto) 0.6 Baso % (Auto) 0.7 Neut # (Auto) 7.2 H Lymph # (Auto) 0.9 L [place] # (Auto) 0.4 Eos # (Auto) 0.1 Baso # (Auto) 0.1 PT INR APTT Sodium 136 Potassium 3.8 Chloride 96 L Carbon Dioxide 28 Anion Gap 16 BUN 30 H Creatinine 1.3 H Est GFR ( Amer) 49 Est GFR (Non-Af Amer) 41 POC Glucose (mg/dL) 238 H Random Glucose 253 H Calcium 9.5 Total Bilirubin 0.7 AST 18 ALT 27 Alkaline Phosphatase 86 Total Protein 7.5 Albumin 3.8 Globulin 3.7 Albumin/Globulin Ratio 1.0 Blood Type Antibody Screen 08/08/17 08/08/17 08/08/17 10:30 10:30 16:26 WBC RBC Hgb Hct MCV MCH MCHC RDW Plt Count MPV Neut % (Auto) Lymph % (Auto) [place] % (Auto) Eos % (Auto) Baso % (Auto) Neut # (Auto) Lymph # (Auto) [place] # (Auto) Eos # (Auto) Baso # (Auto) PT 11.4 INR 1.0 APTT 28 Sodium Potassium Chloride Carbon Dioxide Anion Gap BUN Creatinine Est GFR ( Amer) Est GFR (Non-Af Amer) POC Glucose (mg/dL) 234 H Random Glucose Calcium Total Bilirubin AST ALT Alkaline Phosphatase Total Protein Albumin Globulin Albumin/Globulin Ratio Blood Type B POSITIVE Antibody Screen Negative Assessment & Plan - Assessment and Plan (Free Text) Plan: Gangrene of 1st and 2nd digits of right foot * Podiatry consulted, Dr. Rocha; recs appreciated * Plan for amputation of 1st and 2nd digits on Tue08/10/17 * Preop studies * hold eliquis, ASA, and DVT prophylaxis * Vascular surgery consulted, Dr. Nur; recs appreciated * Percocet PRN pain * Wound care MERLINE * BUN/Cr: 30/1.3 * NS @ 75 cc/h * Hold Metformin History of PVD with b/l stents * Vascular surgery consulted, Dr. Nur; recs appreciated DM * Accuchecks * ISS medium dose * hypoglycemic protocol * continue gabapentin 600 mg daily * hold metformin, januvia, and glipizide HTN * Continue norvasc, losartan, and lopressor HLD * Continue Atorvastatin History of DVT * hold home eliquis for surgery PPX * GI: pepcid * DVT: contraindicated at this time, preop <Luis Alberto Baker H - Last Filed: 08/09/17 09:02> Results - Vital Signs Recent Vital Signs: Last Vital Signs Temp 98.3 F 08/09/17 08:00 Pulse 64 08/09/17 08:00 Resp 20 08/09/17 08:00 BP 154/73 H 08/09/17 08:00 Pulse Ox 95 08/09/17 08:00 - Labs Result Diagrams: 08/09/17 06:51 08/09/17 06:51 Labs: Laboratory Results - last 24 hr 08/08/17 08/08/17 08/08/17 09:27 10:30 10:30 WBC 8.7 RBC 4.04 Hgb 10.8 L Hct 31.7 L MCV 78.6 L D MCH 26.7 L MCHC 34.0 RDW 13.9 Plt Count 218 MPV 8.8 Neut % (Auto) 83.5 H Lymph % (Auto) 10.2 L [place] % (Auto) 5.0 Eos % (Auto) 0.6 Baso % (Auto) 0.7 Neut # (Auto) 7.2 H Lymph # (Auto) 0.9 L [place] # (Auto) 0.4 Eos # (Auto) 0.1 Baso # (Auto) 0.1 PT INR APTT Sodium 136 Potassium 3.8 Chloride 96 L Carbon Dioxide 28 Anion Gap 16 BUN 30 H Creatinine 1.3 H Est GFR ( Amer) 49 Est GFR (Non-Af Amer) 41 POC Glucose (mg/dL) 238 H Random Glucose 253 H Calcium 9.5 Total Bilirubin 0.7 AST 18 ALT 27 Alkaline Phosphatase 86 Total Protein 7.5 Albumin 3.8 Globulin 3.7 Albumin/Globulin Ratio 1.0 Blood Type Antibody Screen 08/08/17 08/08/17 08/08/17 10:30 10:30 16:26 WBC RBC Hgb Hct MCV MCH MCHC RDW Plt Count MPV Neut % (Auto) Lymph % (Auto) [place] % (Auto) Eos % (Auto) Baso % (Auto) Neut # (Auto) Lymph # (Auto) [place] # (Auto) Eos # (Auto) Baso # (Auto) PT 11.4 INR 1.0 APTT 28 Sodium Potassium Chloride Carbon Dioxide Anion Gap BUN Creatinine Est GFR ( Amer) Est GFR (Non-Af Amer) POC Glucose (mg/dL) 234 H Random Glucose Calcium Total Bilirubin AST ALT Alkaline Phosphatase Total Protein Albumin Globulin Albumin/Globulin Ratio Blood Type B POSITIVE Antibody Screen Negative 08/08/17 08/09/17 08/09/17 21:14 06:51 06:51 WBC 5.4 RBC 3.73 L Hgb 10.0 L Hct 29.0 L MCV 77.7 L MCH 26.7 L MCHC 34.4 RDW 13.8 Plt Count 196 MPV 9.1 Neut % (Auto) 61.7 Lymph % (Auto) 28.9 [place] % (Auto) 7.0 Eos % (Auto) 1.6 Baso % (Auto) 0.8 Neut # (Auto) 3.3 Lymph # (Auto) 1.6 [place] # (Auto) 0.4 Eos # (Auto) 0.1 Baso # (Auto) 0.0 PT INR APTT Sodium 138 Potassium 3.7 Chloride 100 Carbon Dioxide 26 Anion Gap 15 BUN 19 H Creatinine 0.8 Est GFR ( Amer) > 60 Est GFR (Non-Af Amer) > 60 POC Glucose (mg/dL) 239 H Random Glucose 193 H Calcium 8.6 Total Bilirubin 0.4 AST 13 L D ALT 25 Alkaline Phosphatase 75 Total Protein 6.3 Albumin 3.2 L Globulin 3.1 Albumin/Globulin Ratio 1.0 Blood Type Antibody Screen 08/09/17 07:25 WBC RBC Hgb Hct MCV MCH MCHC RDW Plt Count MPV Neut % (Auto) Lymph % (Auto) [place] % (Auto) Eos % (Auto) Baso % (Auto) Neut # (Auto) Lymph # (Auto) [place] # (Auto) Eos # (Auto) Baso # (Auto) PT INR APTT Sodium Potassium Chloride Carbon Dioxide Anion Gap BUN Creatinine Est GFR ( Amer) Est GFR (Non-Af Amer) POC Glucose (mg/dL) 190 H Random Glucose Calcium Total Bilirubin AST ALT Alkaline Phosphatase Total Protein Albumin Globulin Albumin/Globulin Ratio Blood Type Antibody Screen Attending/Attestation - Attestation I have personally seen and examined this patient.: Yes I have fully participated in the care of the patient.: Yes I have reviewed all pertinent clinical information: Yes Notes (Text): 08/09/17 09:02 Medical attending: Patient was seen and examined by me and the medical device assembler. Patient is ready moved up to room 371. I reviewed the above note by medical device assembler and agree with the above note. The patient when we saw her was not in any acute distress. She does have a rather substantial medical history including peripheral vascular disease, CAD, diabetes, hypertension, cholesterol. We examined her feet and unfortunately as documented above the resident note on the right foot the first and second digits are quite necrotic. The feet did not have any open wounds. So in the meantime work in a control her diabetes with sliding scale insulin. We 'll continue the statin as well. She is on Eliquis and aspirin were to hold these in preparation for when they plan to do the amputation of the right first and second digits of her foot Thank you very much, Luis Alberto Baker
[2017-08-08] MEDS ORDERED: Glucagon Recombinant 1 mg Inj IM PRN (17:16)
[2017-08-08] MEDS ORDERED: Dextrose 50% SYRINGE Inj (50 ml) IV PRN (17:16)
[2017-08-08] MEDS: (Novolin R) Insulin Human Regular 100 units/ml vial SC SCH (21:39)
[2017-08-09] MEDS: Sodium Chloride 0.9% 1,000 ML IV SCH ×2 (05:00→19:07)
[2017-08-09 07:12] LABS: ALBUMIN 3.2 g/dL (3.5-5.0); ALT/SGPT 25 U/L (9-52); AST/SGOT 13 U/L (14-36); BLOOD UREA NITROGEN 19 mg/dL (7-17); CALCIUM 8.6 mg/dl (8.6-10.4); GFR AFRICAN-AMERICAN > 60; GFR NON-AFRICAN AMERICAN > 60
[2017-08-09 07:14] LABS: BASO % 0.8 % (0.0-2.0); EOS # 0.1 K/uL (0.0-0.7); EOS % 1.6 % (0.0-4.0); LYMPH # 1.6 K/uL (1.0-4.3); LYMPH % 28.9 % (20.0-40.0); MEAN CELL VOLUME 77.7 fL (81.0-99.0); MEAN CORPUSCULAR HEMOGLOBIN 26.7 pg (27.0-31.0); MEAN CORPUSCULAR HGB CONC 34.4 g/dL (33.0-37.0); MEAN PLATELET VOLUME 9.1 fL (7.2-11.7); MONO # 0.4 K/uL (0.0-0.8); NEUT # 3.3 K/uL (1.8-7.0); NEUT % 61.7 % (50.0-75.0); RBC 3.73 Mil/uL (3.80-5.20); RED CELL DISTRIBUTION WIDTH 13.8 % (11.5-14.5); WHITE BLOOD COUNT 5.4 K/uL (4.8-10.8)
[2017-08-09] MEDS: Oxycodone/Acetaminophen 5/325 mg Tab PO PRN ×3 (08:05→23:35)
[2017-08-09] MEDS: (Novolin R) Insulin Human Regular 100 units/ml vial SC SCH ×4 (08:07→21:21)
[2017-08-09] MEDS: Omega-3-Acid Ethyl Esters 1 GM Cap PO SCH (10:32)
--- NOTE | 2017-08-09 10:42 | CP.PCM.PN ---
Subjective - Date & Time of Evaluation Date of Evaluation: 08/09/17 Time of Evaluation: 08:00 - Subjective Subjective: Surgery: Dr. Nur Pt seen and examined. No acute overnight events. States she feels well and doesn 't have any complaints other than her L foot ulcers. Denies F/C. Objective - Vital Signs/Intake and Output Vital Signs (last 24 hours): Temp Pulse Resp BP Pulse Ox 98.3 F 64 20 154/73 H 95 08/09/17 08:00 08/09/17 08:00 08/09/17 08:00 08/09/17 08:00 08/09/17 08:00 Intake and Output: 08/09/17 08/09/17 06:59 18:59 Intake Total 1650 Output Total 500 Balance 1150 - Medications Medications: Current Medications Amlodipine Besylate (Norvasc) 5 mg PO DAILY [facility] Last Admin: 08/09/17 10:33 Dose: 5 mg Dextrose (Dextrose 50% Inj) 0 ml IV STAT PRN; Protocol PRN Reason: Hypoglycemia Protocol Dextrose (Glutose 15) 0 gm PO ONCE PRN; Protocol PRN Reason: Hypoglycemia Protocol Famotidine (Pepcid) 20 mg PO DAILY PRN PRN Reason: Heartburn Gabapentin (Neurontin) 600 mg PO DAILY [facility] Last Admin: 08/09/17 10:33 Dose: 600 mg Glucagon (Glucagen Diagnostic Kit) 0 mg IM STAT PRN; Protocol PRN Reason: Hypoglycemia Protocol Sodium Chloride (Sodium Chloride 0.9%) 1,000 mls @ 75 mls/hr IV .[id number] [facility] Last Admin: 08/09/17 05:00 Dose: 75 mls/hr Dextrose (Dextrose 5% In Water 1000 Ml) 1,000 mls @ 0 mls/hr IV .Q0M PRN; Protocol; Per Protocol PRN Reason: Hypoglycemia Protocol Insulin Human Regular (Novolin R) 0 unit SC ACHS [facility] PRN Reason: Protocol Last Admin: 08/09/17 08:07 Dose: 2 unit Losartan Potassium (Cozaar) 25 mg PO DAILY [facility] Last Admin: 08/09/17 10:32 Dose: 25 mg Metoprolol Tartrate (Lopressor) 50 mg PO DAILY [facility] Last Admin: 08/09/17 10:32 Dose: 50 mg Aazrx-[id number] Ethyl Esters (Lovaza) 1 gm PO DAILY [facility] Last Admin: 08/09/17 10:32 Dose: 1 gm Oxycodone/Acetaminophen (Percocet 5/325 Mg Tab) 1 tab PO Q4 PRN PRN Reason: Pain, severe (8-10) Stop: 08/11/17 14:53 Last Admin: 08/09/17 08:05 Dose: 1 tab Rosuvastatin Calcium (Crestor) 20 mg PO DAILY [facility] - Labs Labs: 08/09/17 06:51 08/09/17 06:51 PT 11.4 SECONDS (9.7-12.2) 08/08/17 10:30 INR 1.0 08/08/17 10:30 APTT 28 SECONDS (21-34) 08/08/17 10:30 - Constitutional Appears: Well, No Acute Distress - Head Exam Head Exam: ATRAUMATIC, NORMOCEPHALIC - ENT Exam ENT Exam: Mucous Membranes Moist - Respiratory Exam Respiratory Exam: NORMAL BREATHING PATTERN - Cardiovascular Exam Cardiovascular Exam: RRR - GI/Abdominal Exam GI & Abdominal Exam: Soft - Extremities Exam Additional comments: R foot with necrotic 1st and 2nd toes, L foot with pressure ulcers on the heel - Neurological Exam Neurological Exam: Alert, Awake, Oriented x3 - Skin Skin Exam: Dry, Warm Assessment and Plan - Assessment and Plan (Free Text) Assessment: 67F with necrotic R 1st & 2nd toes as well as L heel ulcers Plan: - pt going for toe amputations with podiatry today - CTA with runoff ordered to evaluate peripheral vessels - will follow - d/w Dr. Nur who agrees with above Aniket, PGY-3
--- NOTE | 2017-08-09 13:17 | CP.PCM.PN ---
<Viji Mckinney - Last Filed: 08/09/17 13:12> Subjective - Date & Time of Evaluation Date of Evaluation: 08/09/17 Time of Evaluation: 13:12 - Subjective Subjective: Podiatry note for Dr. Rocha 66 y/o female was seen at bedside this morning concerning Right foot gangrenous digits of 1st and 2nd. Patient remains well rested in bed, AAOx3, NAD overnight. Patient complains of mild pain to Right foot site of gangrene. Right foot remains open to air without dressing. Patient is informed that podiatry ( Dr. Rocha) plans for surgical amputation of right 1st and 2nd digit this coming Tuesday. Patient agrees with the podiatry plan. Pt denies of any recent F/N/V/C/ SOB. Objective - Vital Signs/Intake and Output Vital Signs (last 24 hours): Temp Pulse Resp BP Pulse Ox 98.3 F 64 20 154/73 H 95 08/09/17 08:00 08/09/17 08:00 08/09/17 08:00 08/09/17 08:00 08/09/17 08:00 Intake and Output: 08/09/17 08/09/17 06:59 18:59 Intake Total 1650 Output Total 500 Balance 1150 - Medications Medications: Current Medications Amlodipine Besylate (Norvasc) 5 mg PO DAILY [facility] Last Admin: 08/09/17 10:33 Dose: 5 mg Dextrose (Dextrose 50% Inj) 0 ml IV STAT PRN; Protocol PRN Reason: Hypoglycemia Protocol Dextrose (Glutose 15) 0 gm PO ONCE PRN; Protocol PRN Reason: Hypoglycemia Protocol Famotidine (Pepcid) 20 mg PO DAILY PRN PRN Reason: Heartburn Gabapentin (Neurontin) 600 mg PO DAILY [facility] Last Admin: 08/09/17 10:33 Dose: 600 mg Glucagon (Glucagen Diagnostic Kit) 0 mg IM STAT PRN; Protocol PRN Reason: Hypoglycemia Protocol Sodium Chloride (Sodium Chloride 0.9%) 1,000 mls @ 75 mls/hr IV .[id number] [facility] Last Admin: 08/09/17 05:00 Dose: 75 mls/hr Dextrose (Dextrose 5% In Water 1000 Ml) 1,000 mls @ 0 mls/hr IV .Q0M PRN; Protocol; Per Protocol PRN Reason: Hypoglycemia Protocol Insulin Human Regular (Novolin R) 0 unit SC ACHS [facility] PRN Reason: Protocol Last Admin: 08/09/17 13:07 Dose: 3 unit Losartan Potassium (Cozaar) 25 mg PO DAILY [facility] Last Admin: 08/09/17 10:32 Dose: 25 mg Metoprolol Tartrate (Lopressor) 50 mg PO DAILY [facility] Last Admin: 08/09/17 10:32 Dose: 50 mg Nohmn-9-Swks Ethyl Esters (Lovaza) 1 gm PO DAILY [facility] Last Admin: 08/09/17 10:32 Dose: 1 gm Oxycodone/Acetaminophen (Percocet 5/325 Mg Tab) 1 tab PO Q4 PRN PRN Reason: Pain, severe (8-10) Stop: 08/11/17 14:53 Last Admin: 08/09/17 08:05 Dose: 1 tab Rosuvastatin Calcium (Crestor) 20 mg PO HS [facility] - Labs Labs: 08/09/17 06:51 08/09/17 06:51 PT 11.4 SECONDS (9.7-12.2) 08/08/17 10:30 INR 1.0 08/08/17 10:30 APTT 28 SECONDS (21-34) 08/08/17 10:30 - Constitutional Appears: Well, Non-toxic, No Acute Distress - Head Exam Head Exam: ATRAUMATIC - Extremities Exam Additional comments: Bilateral Lower Extremity exam: DERM: RIGHT: Right 1st and 2nd digit gangrenous with dry skin demarcation from distal tip proximally up to level of MTPJ, no fluctuance or probe to bone noted. no active drainage, no malodor, resolving erythema from yesterday noted on the medial ankle and distal medial leg LEFT: Erythema noted to Left foot 3rd 4th 5th digits extending proximally along the lateral aspect of left foot. No oipen wound noted. No drainage. No mal-odor , no probe to bone NEURO: Protective sensation grossly intact bilaterally VASC: DP/PT pulses are faintly palpable 1/4, [employer]: < 3 sec to all digits, TG: warm to cool, no pitting or non-pitting edema was observed ORTHO: no pain or tenderness on the palpation of the medial ankle - Neurological Exam Neurological Exam: Awake, Oriented x3 - Psychiatric Exam Psychiatric exam: Normal Affect, Normal Mood Assessment and Plan - Assessment and Plan (Free Text) Assessment: 67 yo female patient presenting with Right foot gangrene Plan: Patient was seen evaluated at bedside ED with attending Dr. Rocha labs and vitals reviewed Right foot open to air without any dressing Patient is scheduled for RIGHT foot 1st ray and 2nd digit amputation this TUESDAY with Dr. Rocha Medical clearance requested from family medicine Medical clearance requested from Cardiology Podiatry will continue to follow in house <Nelson Rocha - Last Filed: 08/09/17 14:05> Objective - Vital Signs/Intake and Output Vital Signs (last 24 hours): Temp Pulse Resp BP Pulse Ox 98.3 F 64 20 154/73 H 95 08/09/17 08:00 08/09/17 08:00 08/09/17 08:00 08/09/17 08:00 08/09/17 08:00 Intake and Output: 08/09/17 08/09/17 06:59 18:59 Intake Total 1650 Output Total 500 Balance 1150 - Medications Medications: Current Medications Amlodipine Besylate (Norvasc) 5 mg PO DAILY [facility] Last Admin: 08/09/17 10:33 Dose: 5 mg Dextrose (Dextrose 50% Inj) 0 ml IV STAT PRN; Protocol PRN Reason: Hypoglycemia Protocol Dextrose (Glutose 15) 0 gm PO ONCE PRN; Protocol PRN Reason: Hypoglycemia Protocol Famotidine (Pepcid) 20 mg PO DAILY PRN PRN Reason: Heartburn Gabapentin (Neurontin) 600 mg PO DAILY [facility] Last Admin: 08/09/17 10:33 Dose: 600 mg Glucagon (Glucagen Diagnostic Kit) 0 mg IM STAT PRN; Protocol PRN Reason: Hypoglycemia Protocol Sodium Chloride (Sodium Chloride 0.9%) 1,000 mls @ 75 mls/hr IV .[id number] [facility] Last Admin: 08/09/17 05:00 Dose: 75 mls/hr Dextrose (Dextrose 5% In Water 1000 Ml) 1,000 mls @ 0 mls/hr IV .Q0M PRN; Protocol; Per Protocol PRN Reason: Hypoglycemia Protocol Insulin Human Regular (Novolin R) 0 unit SC ACHS [facility] PRN Reason: Protocol Last Admin: 08/09/17 13:07 Dose: 3 unit Losartan Potassium (Cozaar) 25 mg PO DAILY [facility] Last Admin: 08/09/17 10:32 Dose: 25 mg Metoprolol Tartrate (Lopressor) 50 mg PO DAILY [facility] Last Admin: 08/09/17 10:32 Dose: 50 mg Fctio-4-Nzpw Ethyl Esters (Lovaza) 1 gm PO DAILY [facility] Last Admin: 08/09/17 10:32 Dose: 1 gm Oxycodone/Acetaminophen (Percocet 5/325 Mg Tab) 1 tab PO Q4 PRN PRN Reason: Pain, severe (8-10) Stop: 08/11/17 14:53 Last Admin: 08/09/17 08:05 Dose: 1 tab Rosuvastatin Calcium (Crestor) 20 mg PO HS [facility] - Labs Labs: 08/09/17 06:51 08/09/17 06:51 PT 11.4 SECONDS (9.7-12.2) 08/08/17 10:30 INR 1.0 08/08/17 10:30 APTT 28 SECONDS (21-34) 08/08/17 10:30 Attending/Attestation - Attestation I have personally seen and examined this patient.: Yes I have fully participated in the care of the patient.: Yes I have reviewed all pertinent clinical information, including history, physical exam and plan: Yes Notes (Text): 08/09/17 14:04 SX postponed til Tuesday due to inclement weather.
--- NOTE | 2017-08-09 14:13 | CP.PCM.PN ---
Subjective - Date & Time of Evaluation Date of Evaluation: 08/09/17 Time of Evaluation: 14:10 - Subjective Subjective: Pt seen at bedside for f/u right hallux and 2nd digit gangrene. Discussed case with patient at length. Pt understands all risks and alternatives and consents to right partial 1st and 2nd ray amp. Pt understands that this is a limb salvage procedure and that if healing is compromised future surgery and/or limbloss is possible. Pt strongly urged to keep from smoking. Vasc team and medicine have seen the patient. Surgery has been post poned til Tuesday due to inclement weather. Objective - Vital Signs/Intake and Output Vital Signs (last 24 hours): Temp Pulse Resp BP Pulse Ox 98.3 F 64 20 154/73 H 95 08/09/17 08:00 08/09/17 08:00 08/09/17 08:00 08/09/17 08:00 08/09/17 08:00 Intake and Output: 08/09/17 08/09/17 06:59 18:59 Intake Total 1650 Output Total 500 Balance 1150 - Medications Medications: Current Medications Amlodipine Besylate (Norvasc) 5 mg PO DAILY [facility] Last Admin: 08/09/17 10:33 Dose: 5 mg Dextrose (Dextrose 50% Inj) 0 ml IV STAT PRN; Protocol PRN Reason: Hypoglycemia Protocol Dextrose (Glutose 15) 0 gm PO ONCE PRN; Protocol PRN Reason: Hypoglycemia Protocol Famotidine (Pepcid) 20 mg PO DAILY PRN PRN Reason: Heartburn Gabapentin (Neurontin) 600 mg PO DAILY [facility] Last Admin: 08/09/17 10:33 Dose: 600 mg Glucagon (Glucagen Diagnostic Kit) 0 mg IM STAT PRN; Protocol PRN Reason: Hypoglycemia Protocol Sodium Chloride (Sodium Chloride 0.9%) 1,000 mls @ 75 mls/hr IV .[id number] [facility] Last Admin: 08/09/17 05:00 Dose: 75 mls/hr Dextrose (Dextrose 5% In Water 1000 Ml) 1,000 mls @ 0 mls/hr IV .Q0M PRN; Protocol; Per Protocol PRN Reason: Hypoglycemia Protocol Insulin Human Regular (Novolin R) 0 unit SC ACHS [facility] PRN Reason: Protocol Last Admin: 08/09/17 13:07 Dose: 3 unit Losartan Potassium (Cozaar) 25 mg PO DAILY [facility] Last Admin: 08/09/17 10:32 Dose: 25 mg Metoprolol Tartrate (Lopressor) 50 mg PO DAILY [facility] Last Admin: 08/09/17 10:32 Dose: 50 mg Doaok-6-Vzgm Ethyl Esters (Lovaza) 1 gm PO DAILY [facility] Last Admin: 08/09/17 10:32 Dose: 1 gm Oxycodone/Acetaminophen (Percocet 5/325 Mg Tab) 1 tab PO Q4 PRN PRN Reason: Pain, severe (8-10) Stop: 08/11/17 14:53 Last Admin: 08/09/17 08:05 Dose: 1 tab Rosuvastatin Calcium (Crestor) 20 mg PO HS [facility] - Labs Labs: 08/09/17 06:51 08/09/17 06:51 PT 11.4 SECONDS (9.7-12.2) 08/08/17 10:30 INR 1.0 08/08/17 10:30 APTT 28 SECONDS (21-34) 08/08/17 10:30
--- NOTE | 2017-08-09 14:37 | CP.PCM.PN ---
<Latisha Le - Last Filed: 08/09/17 14:34> Subjective - Date & Time of Evaluation Date of Evaluation: 08/09/17 Time of Evaluation: 07:30 - Subjective Subjective: Patient seen and examined at bedside. Patient resting comfortably in bed. No acute events overnight. Patient states her pain is controlled with pain medications; however, the pain in the right 1st toe is getting worse, with pain radiating down towards the metatarsal area. She feels the area becoming more erythematous and warm. Otherwise, patient has no other complaints. She denies headache, fever, chills, chest pain, abdominal pain, and dysuria. Objective - Vital Signs/Intake and Output Vital Signs (last 24 hours): Temp Pulse Resp BP Pulse Ox 98.3 F 64 20 154/73 H 95 08/09/17 08:00 08/09/17 08:00 08/09/17 08:00 08/09/17 08:00 08/09/17 08:00 Intake and Output: 08/09/17 08/09/17 06:59 18:59 Intake Total 1650 Output Total 500 Balance 1150 - Medications Medications: Current Medications Amlodipine Besylate (Norvasc) 5 mg PO DAILY [facility] Last Admin: 08/09/17 10:33 Dose: 5 mg Dextrose (Dextrose 50% Inj) 0 ml IV STAT PRN; Protocol PRN Reason: Hypoglycemia Protocol Dextrose (Glutose 15) 0 gm PO ONCE PRN; Protocol PRN Reason: Hypoglycemia Protocol Famotidine (Pepcid) 20 mg PO DAILY PRN PRN Reason: Heartburn Gabapentin (Neurontin) 600 mg PO DAILY [facility] Last Admin: 08/09/17 10:33 Dose: 600 mg Glucagon (Glucagen Diagnostic Kit) 0 mg IM STAT PRN; Protocol PRN Reason: Hypoglycemia Protocol Sodium Chloride (Sodium Chloride 0.9%) 1,000 mls @ 75 mls/hr IV .[id number] [facility] Last Admin: 08/09/17 05:00 Dose: 75 mls/hr Dextrose (Dextrose 5% In Water 1000 Ml) 1,000 mls @ 0 mls/hr IV .Q0M PRN; Protocol; Per Protocol PRN Reason: Hypoglycemia Protocol Insulin Human Regular (Novolin R) 0 unit SC ACHS [facility] PRN Reason: Protocol Last Admin: 08/09/17 13:07 Dose: 3 unit Losartan Potassium (Cozaar) 25 mg PO DAILY [facility] Last Admin: 08/09/17 10:32 Dose: 25 mg Metoprolol Tartrate (Lopressor) 50 mg PO DAILY [facility] Last Admin: 08/09/17 10:32 Dose: 50 mg Nvawl-7-Hduq Ethyl Esters (Lovaza) 1 gm PO DAILY [facility] Last Admin: 08/09/17 10:32 Dose: 1 gm Oxycodone/Acetaminophen (Percocet 5/325 Mg Tab) 1 tab PO Q4 PRN PRN Reason: Pain, severe (8-10) Stop: 08/11/17 14:53 Last Admin: 08/09/17 08:05 Dose: 1 tab Rosuvastatin Calcium (Crestor) 20 mg PO [facility] - Labs Labs: 08/09/17 06:51 08/09/17 06:51 PT 11.4 SECONDS (9.7-12.2) 08/08/17 10:30 INR 1.0 08/08/17 10:30 APTT 28 SECONDS (21-34) 08/08/17 10:30 - Additional Findings Additional findings: - Constitutional Appears: Non-toxic, No Acute Distress - Head Exam Head Exam: ATRAUMATIC, NORMAL INSPECTION, NORMOCEPHALIC - Eye Exam Eye Exam: EOMI, Normal appearance, PERRL - ENT Exam ENT Exam: Mucous Membranes Moist - Respiratory Exam Respiratory Exam: Clear to Auscultation Bilateral, NORMAL BREATHING PATTERN. absent: Accessory Muscle Use, Rales, Rhonchi, Wheezes, Respiratory Distress - Cardiovascular Exam Cardiovascular Exam: RRR, +S1, +S2. absent: Bradycardia, Tachycardia, Diastolic murmur, Gallop, Rubs, Systolic Murmur - GI/Abdominal Exam GI & Abdominal Exam: Normal Bowel Sounds, Soft. absent: Distended, Tenderness - Extremities Exam Additional comments: Gangrenous 1st and 2nd digits of right foot Cracked skin wound on the bottom of the left foot that are exquisitely tender - Neurological Exam Neurological exam: Alert, Oriented x3 - Psychiatric Exam Psychiatric exam: Normal Affect, Normal Mood - Skin Skin Exam: Dry, Intact, Warm Assessment and Plan - Assessment and Plan (Free Text) Plan: Gangrene of 1st and 2nd digits of right foot * Podiatry consulted, Dr. Rocha; recs appreciated * Plan for amputation of 1st and 2nd digits on Tuesday08/12/17 * Preop studies * hold eliquis, ASA, and DVT prophylaxis * Vascular surgery consulted, Dr. Nur; recs appreciated * Infectious disease consulted, Dr. Quintero; recs appreciated * Wound care * PT * Percocet PRN pain Imaging * Foot XR pending [facility] * BUN/Cr: 30/1.3 * NS @ 75 cc/h * Hold Metformin History of PVD with b/l stents * Vascular surgery consulted, Dr. Nur; recs appreciated Imaging * Abd CTA pending DM * Accuchecks * ISS medium dose * hypoglycemic protocol * continue gabapentin 600 mg daily * hold metformin, januvia, and glipizide HTN * Continue home meds: * norvasc 5 mg daily * losartan 25 mg daily * lopressor 50 mg daily [facility] * Crestor 20 mg HS * [place] 3 History of DVT * hold home eliquis for surgery PPX * GI: pepcid 20 mg daily * DVT: contraindicated at this time, preop <Luis Alberto Baker H - Last Filed: 08/09/17 15:03> Objective - Vital Signs/Intake and Output Vital Signs (last 24 hours): Temp Pulse Resp BP Pulse Ox 98.3 F 64 20 154/73 H 95 08/09/17 08:00 08/09/17 08:00 08/09/17 08:00 08/09/17 08:00 08/09/17 08:00 Intake and Output: 08/09/17 08/09/17 06:59 18:59 Intake Total 1650 Output Total 500 Balance 1150 - Medications Medications: Current Medications Amlodipine Besylate (Norvasc) 5 mg PO DAILY [facility] Last Admin: 08/09/17 10:33 Dose: 5 mg Dextrose (Dextrose 50% Inj) 0 ml IV STAT PRN; Protocol PRN Reason: Hypoglycemia Protocol Dextrose (Glutose 15) 0 gm PO ONCE PRN; Protocol PRN Reason: Hypoglycemia Protocol Famotidine (Pepcid) 20 mg PO DAILY PRN PRN Reason: Heartburn Gabapentin (Neurontin) 600 mg PO DAILY [facility] Last Admin: 08/09/17 10:33 Dose: 600 mg Glucagon (Glucagen Diagnostic Kit) 0 mg IM STAT PRN; Protocol PRN Reason: Hypoglycemia Protocol Sodium Chloride (Sodium Chloride 0.9%) 1,000 mls @ 75 mls/hr IV .[id number] [facility] Last Admin: 08/09/17 05:00 Dose: 75 mls/hr Dextrose (Dextrose 5% In Water 1000 Ml) 1,000 mls @ 0 mls/hr IV .Q0M PRN; Protocol; Per Protocol PRN Reason: Hypoglycemia Protocol Insulin Human Regular (Novolin R) 0 unit SC ACHS [facility] PRN Reason: Protocol Last Admin: 08/09/17 13:07 Dose: 3 unit Losartan Potassium (Cozaar) 25 mg PO DAILY [facility] Last Admin: 08/09/17 10:32 Dose: 25 mg Metoprolol Tartrate (Lopressor) 50 mg PO DAILY [facility] Last Admin: 08/09/17 10:32 Dose: 50 mg Petuu-7-Zduw Ethyl Esters (Lovaza) 1 gm PO DAILY [facility] Last Admin: 08/09/17 10:32 Dose: 1 gm Oxycodone/Acetaminophen (Percocet 5/325 Mg Tab) 1 tab PO Q4 PRN PRN Reason: Pain, severe (8-10) Stop: 08/11/17 14:53 Last Admin: 08/09/17 08:05 Dose: 1 tab Rosuvastatin Calcium (Crestor) 20 mg PO HS [facility] - Labs Labs: 08/09/17 06:51 08/09/17 06:51 PT 11.4 SECONDS (9.7-12.2) 08/08/17 10:30 INR 1.0 08/08/17 10:30 APTT 28 SECONDS (21-34) 08/08/17 10:30 Attending/Attestation - Attestation I have personally seen and examined this patient.: Yes I have fully participated in the care of the patient.: Yes I have reviewed all pertinent clinical information, including history, physical exam and plan: Yes Notes (Text): 08/09/17 15:01 Medical attending: Patient was seen and examined by me as well. Agree with the above note by the resident. The patient was not in any acute distress when we saw him As previously mentioned she is pedning amputation of the toes on 08/12/2017 thank you Luis Alberto Baker
--- NOTE | 2017-08-09 14:43 | RAD ---
PROCEDURE: Right Foot Radiographs. HISTORY: right foot gangrene COMPARISON: 12/11/2016 right ankle FINDINGS: BONES: Mottled sclerotic and cystic changes of the midfoot most notable. The plantar arch is decreased and a mild midfoot collapse spectrum/neuropathic changes here are suspect. Inferior calcaneal prominent spurring as before. No periosteal reaction seen to suggest osteomyelitis. JOINTS: Sesamoid hallux, tarsal metatarsal and inter tarsal arthrosis suggested SOFT TISSUES: No subcutaneous emphysema seen suggest a gas-forming cellulitis. Atherosclerotic vascular calcifications noted OTHER FINDINGS: None. IMPRESSION: Chronic changes as above. No periosteal reaction or cortical destruction seen to suggest osteomyelitis. Gas-forming cellulitis appreciated.
[2017-08-09] MEDS ORDERED: Iodixanol 320 mg/ml 150 ml Bottle IV ONE (15:19)
--- NOTE | 2017-08-09 20:25 | CP.PCM.CON ---
History of Present Illness - History of Present Illness History of Present Illness: 67 y/o female presents to the ED with gangrene of the 1st and 2nd digits of her right foot. She also complains of pain in her left foot due to multiple cuts on the sole. She states that her right toes turning completely black about a week ago. She visited Dr. Nur last week concerning her toes, and he advised her to come to the hospital today for admission and amputation of her right 1st and 2nd toes ID COINSULTED FOR ANTIBIOTIC MANAGEMENT PMHx: DM, HTN, HLD, PVD, DVT, CAD Social Hx: pack daily for +40 years; denies alcohol and illicit drug use Allergies: seasonal Surgery: peripheral lower extremity stents bilaterally, coronary stent (x1), tonsillectomy, FHx: motherDM; sisterdeceased at 27 y/o due to salivary gland CA; brothers due to lymphoma and [place] Meds: glipizide, metformin, gabapentin, atorvastatin, metoprolol, amlodipine, losartan, eliquis, aspirin, Pepcid, Januvia, tramadol, omega 3 Review of Systems - Review of Systems All systems: reviewed and no additional remarkable complaints except - Constitutional Constitutional: As Per HPI - EENT Eyes: absent: As Per HPI, Blind Spots, Blurred Vision, Change in Vision, Decreased Night Vision, Diplopia, Discharge, Dry Eye, Exophthalmos, Floaters, Irritation, Itchy Eyes, Loss of Peripheral Vision, Pain, Photophobia, Requires Corrective Lenses, Sees Flashes, Spots in Vision, Tunnel Vision, Other Visual Disturbances, Loss of Vision, Other Ears: absent: As Per HPI, Decreased Hearing, Ear Discharge, Ear Pain, Tinnitus, Abnormal Hearing, Disequilibrium, Dizziness, Other Nose/Mouth/Throat: absent: As Per HPI, Epistaxis, Nasal Congestion, Nasal Discharge, Nasal Obstruction, Nasal Trauma, Nose Pain, Post Nasal Drip, Sinus Pain, Sinus Pressure, Bleeding Gums, Change in Voice, Dental Pain, Dry Mouth, Dysphagia, Halitosis, Hoarsness, Lip Swelling, Mouth Lesions, Mouth Pain, Odynophagia, Sore Throat, Throat Swelling, Tongue Swelling, Facial Pain, Neck Pain, Neck Mass, Other - Breasts Breasts: absent: As Per HPI, Change in Shape, Mass, Pain, Nipple Discharge, Nipple Inversion, Skin Changes, Swelling, Other - Cardiovascular Cardiovascular: absent: As Per HPI, Acrocyanosis, Chest Pain, Chest Pain at Rest , Chest Pain with Activity, Claudication, Diaphoresis, Dyspnea, Dyspnea on Exertion, Edema, Irregular Heart Rhythm, Pain Radiating to Arm/Neck/Jaw, Leg Edema, Leg Ulcers, Lightheadedness, Orthopnea, Palpitations, Paroxysmal Nocturnal Dyspnea, Pedal Edema, Radiating Pain, Rapid Heart Rate, Slow Heart Rate, Syncope, Other - Respiratory Respiratory: absent: As Per HPI, Cough, Dyspnea, Hemoptysis, Dyspnea on Exertion , Wheezing, Snoring, Stridor, Pain on Inspiration, Chest Congestion, Excessive Mucous Production, Change in Mucous Color, Pain with Coughing, Other - Gastrointestinal Gastrointestinal: absent: As Per HPI, Abdominal Pain, Belching, Bloating, Change in Bowel Habits, Change in Stool Character, Coffee Ground Emesis, Constipation, Cramping, Diarrhea, Dyspepsia, Dysphagia, Early Satiety, Excessive Flatus, Fecal Incontinence, Heartburn, Hematemesis, Hematochezia, Loose Stools, Melena, Nausea, Odynophagia, Temesmus, Vomiting, Other - Genitourinary Genitourinary: absent: As Per HPI, Change in Urinary Stream, Difficulty Urinating, Dysuria, Flank Pain, Hematuria, Pyuria, Nocturia, Urinary Incontinence, Urinary Frequency, Urinary Hesitance, Urinary Urgency, Voiding Freq/Small Amts, Freq UTI, Hx Renal/Bladder Calculi, Hx /Renal Surgery, Bladder Distension, Other - Reproductive: Female Reproductive:Female: absent: As Per HPI, Amenorrhea, Amenorrhea/ Control, Currently Menstual, Cycle <21 Days, Cycle >35 Days, Cycle Variable, Menses 1-7 Days, Menses >/= 8 Days, Menses Variable, Cycle > 4 Weeks Between, No Menses for 6 Months, Heavy Menses, Light Menses, Normal Menses, Spotting Between Cycles , S/P Hysterectomy, Menopausal, Post Menopausal, Premenarche, Abnormal Vaginal Bleeding, Dysmenorrhea, Dyspareunia, Genital Lesions, Genital Pruritis, Pelvic Pain, Prolapse Symptoms, Sexual Dysfunction, Vaginal Discharge, Vaginal Dryness , Vaginal Odor, Vaginal Pruritis, Other - Menstruation Menstruation: absent: As Per HPI, Amenorrhea, Amenorrhea/ Control, Currently Menstual, Cycle <21 Days, Cycle >35 Days, Cycle Variable, Menses 1-7 Days, Menses >/= 8 Days, Menses Variable, Cycle > 4 Weeks Between, No Menses for 6 Months, Heavy Menses, Light Menses, Normal Menses, Spotting Between Cycles , S/P Hysterectomy, Menopausal, Post Menopausal, Premenarche, Abnormal Vaginal Bleeding, Dysmenorrhea, Other - Musculoskeletal Musculoskeletal: As Per HPI - Integumentary Integumentary: As Per HPI, Skin Pain, Wounds - Neurological Neurological: As Per HPI - Psychiatric Psychiatric: absent: As Per HPI, Abnormal Sleep Pattern, Anhedonia, Anxiety, Auditory Hallucinations, Behavioral Changes, Change in Appetite, Change in Libido, Confusion, Depression, Difficulty Concentrating, Hallucinations, Homicidal Ideation, Hopelessness, Irritability, Memory Loss, Mood Swings, Panic Attacks, Paranoia, Suicidal Ideation, Visual Hallucinations, Tactile Hallucinations, Other - Endocrine Endocrine: As Per HPI - Hematologic/Lymphatic Hematologic: absent: As Per HPI, Easy Bleeding, Easy Bruising, Lymphadenopathy, Other Past Patient History - Infectious Disease Hx of Infectious Diseases: None - Past Medical History & Family History Past Medical History?: Yes - Past Social History Smoking Status: Former Smoker - CARDIAC Hx Cardiac Disorders: Yes Hx Circulatory Problems: Yes Hx Hypercholesterolemia: Yes Hx Hypertension: Yes Hx Peripheral Vascular Disease: Yes - PULMONARY Hx Respiratory Disorders: No - HEENT Hx Cataracts: Yes (BILAT. ) - RENAL Hx Chronic Kidney Disease: No - ENDOCRINE/METABOLIC Hx Endocrine Disorders: Yes Hx Diabetes Mellitus Type 2: Yes - HEMATOLOGICAL/ONCOLOGICAL Hx Anemia: Yes - INTEGUMENTARY Hx Dermatological Problems: No - MUSCULOSKELETAL/RHEUMATOLOGICAL Hx Arthritis: Yes Hx Falls: Yes - GASTROINTESTINAL Hx Gastrointestinal Disorders: No - GENITOURINARY/GYNECOLOGICAL Hx Genitourinary Disorders: No - PSYCHIATRIC Hx Substance Use: No - SURGICAL HISTORY Hx Coronary Stent: Yes (X1) Hx Tonsillectomy: Yes - ANESTHESIA Hx Anesthesia: Yes Hx Anesthesia Reactions: No Hx Malignant Hyperthermia: No Meds Allergies/Adverse Reactions: Allergies Allergy/AdvReac Type Severity Reaction Status Date / Time No Known Allergies Allergy Verified 08/08/17 09:20 - Medications Medications: Current Medications Amlodipine Besylate (Norvasc) 5 mg PO DAILY [facility] Last Admin: 08/09/17 10:33 Dose: 5 mg Dextrose (Dextrose 50% Inj) 0 ml IV STAT PRN; Protocol PRN Reason: Hypoglycemia Protocol Dextrose (Glutose 15) 0 gm PO ONCE PRN; Protocol PRN Reason: Hypoglycemia Protocol Famotidine (Pepcid) 20 mg PO DAILY PRN PRN Reason: Heartburn Gabapentin (Neurontin) 600 mg PO DAILY [facility] Last Admin: 08/09/17 10:33 Dose: 600 mg Glucagon (Glucagen Diagnostic Kit) 0 mg IM STAT PRN; Protocol PRN Reason: Hypoglycemia Protocol Sodium Chloride (Sodium Chloride 0.9%) 1,000 mls @ 75 mls/hr IV .[id number] [facility] Last Admin: 08/09/17 19:07 Dose: Not Given Dextrose (Dextrose 5% In Water 1000 Ml) 1,000 mls @ 0 mls/hr IV .Q0M PRN; Protocol; Per Protocol PRN Reason: Hypoglycemia Protocol Insulin Human Regular (Novolin R) 0 unit SC ACHS [facility] PRN Reason: Protocol Last Admin: 08/09/17 17:41 Dose: 6 unit Losartan Potassium (Cozaar) 25 mg PO DAILY [facility] Last Admin: 08/09/17 10:32 Dose: 25 mg Metoprolol Tartrate (Lopressor) 50 mg PO DAILY [facility] Last Admin: 08/09/17 10:32 Dose: 50 mg Vlwpi-2-Hdge Ethyl Esters (Lovaza) 1 gm PO DAILY [facility] Last Admin: 08/09/17 10:32 Dose: 1 gm Oxycodone/Acetaminophen (Percocet 5/325 Mg Tab) 1 tab PO Q4 PRN PRN Reason: Pain, severe (8-10) Stop: 08/11/17 14:53 Last Admin: 08/09/17 19:10 Dose: 1 tab Rosuvastatin Calcium (Crestor) 20 mg PO [facility] Physical Exam - Constitutional Appears: Non-toxic, Chronically Ill - Head Exam Head Exam: NORMOCEPHALIC - Eye Exam Eye Exam: PERRL. absent: Scleral icterus - ENT Exam ENT Exam: Mucous Membranes Dry, Normal External Ear Exam - Neck Exam Neck exam: Negative for: Lymphadenopathy - Respiratory Exam Respiratory Exam: Decreased Breath Sounds, Clear to Auscultation Bilateral - Cardiovascular Exam Cardiovascular Exam: REGULAR RHYTHM, +S1, +S2 - GI/Abdominal Exam GI & Abdominal Exam: Diminished Bowel Sounds, Soft. absent: Tenderness - Rectal Exam Rectal Exam: Deferred - Exam Exam: NORMAL INSPECTION - Extremities Exam Extremities exam: Positive for: pedal edema, tenderness. Negative for: calf tenderness, normal inspection, pedal pulses present Additional comments: RIGHT FOOT GANGRENE 1ST AND SECOND DIGITS PAINFUL SSKIN LESIONS RIGHT FOOT W/O PUS OR DRAINAGE - Back Exam Back exam: absent: CVA tenderness (L), CVA tenderness (R) - Neurological Exam Neurological exam: Alert, CN II-XII Intact, Oriented x3, Reflexes Normal - Psychiatric Exam Psychiatric exam: Depressed - Skin Skin Exam: Dry Results - Vital Signs Recent Vital Signs: Last Vital Signs Temp 98.7 F 08/09/17 16:05 Pulse 54 L 08/09/17 16:05 Resp 20 08/09/17 16:05 BP 104/64 08/09/17 16:05 Pulse Ox 98 08/09/17 16:05 - Labs Result Diagrams: 08/09/17 06:51 08/09/17 06:51 Labs: Laboratory Results - last 24 hr 08/08/17 08/09/17 08/09/17 21:14 06:51 06:51 WBC 5.4 RBC 3.73 L Hgb 10.0 L Hct 29.0 L MCV 77.7 L MCH 26.7 L MCHC 34.4 RDW 13.8 Plt Count 196 MPV 9.1 Neut % (Auto) 61.7 Lymph % (Auto) 28.9 [place] % (Auto) 7.0 Eos % (Auto) 1.6 Baso % (Auto) 0.8 Neut # (Auto) 3.3 Lymph # (Auto) 1.6 [place] # (Auto) 0.4 Eos # (Auto) 0.1 Baso # (Auto) 0.0 Sodium 138 Potassium 3.7 Chloride 100 Carbon Dioxide 26 Anion Gap 15 BUN 19 H Creatinine 0.8 Est GFR ( Amer) > 60 Est GFR (Non-Af Amer) > 60 POC Glucose (mg/dL) 239 H Random Glucose 193 H Calcium 8.6 Total Bilirubin 0.4 AST 13 L D ALT 25 Alkaline Phosphatase 75 Total Protein 6.3 Albumin 3.2 L Globulin 3.1 Albumin/Globulin Ratio 1.0 08/09/17 08/09/17 08/09/17 07:25 11:24 16:25 WBC RBC Hgb Hct MCV MCH MCHC RDW Plt Count MPV Neut % (Auto) Lymph % (Auto) [place] % (Auto) Eos % (Auto) Baso % (Auto) Neut # (Auto) Lymph # (Auto) [place] # (Auto) Eos # (Auto) Baso # (Auto) Sodium Potassium Chloride Carbon Dioxide Anion Gap BUN Creatinine Est GFR ( Amer) Est GFR (Non-Af Amer) POC Glucose (mg/dL) 190 H 230 H 323 H Random Glucose Calcium Total Bilirubin AST ALT Alkaline Phosphatase Total Protein Albumin Globulin Albumin/Globulin Ratio Assessment & Plan (1) Arthritis Status: Acute (2) CKD (chronic kidney disease) stage 2, GFR 60-89 ml/min Status: Acute (3) COPD (chronic obstructive pulmonary disease) Status: Acute (4) Cellulitis Status: Acute (5) History of coronary artery disease Status: Acute (6) CAD (coronary artery disease) Status: Chronic (7) Chronic kidney disease, stage 3 Status: Chronic (8) Diabetes mellitus Status: Chronic (9) HTN (hypertension) Status: Chronic (10) PVD (peripheral vascular disease) Status: Chronic - Assessment and Plan (Free Text) Assessment: 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
--- NOTE | 2017-08-09 21:28 | CARD ---
APPROVED REPORT EKG Measurement Heart [id number] <Conclusion> Normal sinus rhythm Left ventricular hypertrophy with repolarization abnormality consider lateral ischemia Abnormal ECG
[2017-08-09] MEDS: Vancomycin 750 MG in Dextrose 5% In Water 150 ML IVPB SCH (21:39)
[2017-08-09] MEDS ORDERED: Vancomycin 1 gm/NS 200 ml 1 GM/200 ML BAG IVPB SCH (22:00)
[2017-08-09] MEDS ORDERED: Vancomycin 750mg/NS 150 ml 150 ML IV SCH (22:00)
[2017-08-10 07:08] LABS: BASO % 0.6 % (0.0-2.0); EOS # 0.1 K/uL (0.0-0.7); LYMPH # 1.3 K/uL (1.0-4.3); LYMPH % 23.4 % (20.0-40.0); MEAN CORPUSCULAR HEMOGLOBIN 26.3 pg (27.0-31.0); MEAN CORPUSCULAR HGB CONC 33.3 g/dL (33.0-37.0); MONO # 0.4 K/uL (0.0-0.8); NEUT # 3.6 K/uL (1.8-7.0); NRBC % 0.1 % (0.0-2.0); RBC 3.79 Mil/uL (3.80-5.20); RED CELL DISTRIBUTION WIDTH 13.9 % (11.5-14.5); WHITE BLOOD COUNT 5.5 K/uL (4.8-10.8)
[2017-08-10] MEDS: Sodium Chloride 0.9% 1,000 ML IV SCH ×2 (07:20→20:20)
--- NOTE | 2017-08-10 07:48 | CP.PCM.PN ---
Subjective - Date & Time of Evaluation Date of Evaluation: 08/10/17 Time of Evaluation: 07:45 - Subjective Subjective: Podiatry: Patient seen resting in bed. She is scheduled for surgery right foot this tuesday for amputation of gangrenous right 1st and 2nd toes. Right foot is warm to touch as compared to the left. The gangrenous areas are dry. Patient is in very good spirits and is very alert. Objective - Vital Signs/Intake and Output Vital Signs (last 24 hours): Temp Pulse Resp BP Pulse Ox 98.1 F 62 20 136/79 97 08/10/17 00:00 08/10/17 00:00 08/10/17 00:00 08/10/17 00:00 08/10/17 00:00 - Medications Medications: Current Medications Amlodipine Besylate (Norvasc) 5 mg PO DAILY [facility] Last Admin: 08/09/17 10:33 Dose: 5 mg Dextrose (Dextrose 50% Inj) 0 ml IV STAT PRN; Protocol PRN Reason: Hypoglycemia Protocol Dextrose (Glutose 15) 0 gm PO ONCE PRN; Protocol PRN Reason: Hypoglycemia Protocol Famotidine (Pepcid) 20 mg PO DAILY PRN PRN Reason: Heartburn Gabapentin (Neurontin) 600 mg PO DAILY [facility] Last Admin: 08/09/17 10:33 Dose: 600 mg Glucagon (Glucagen Diagnostic Kit) 0 mg IM STAT PRN; Protocol PRN Reason: Hypoglycemia Protocol Sodium Chloride (Sodium Chloride 0.9%) 1,000 mls @ 75 mls/hr IV .[id number] [facility] Last Admin: 08/10/17 07:20 Dose: 75 mls/hr Dextrose (Dextrose 5% In Water 1000 Ml) 1,000 mls @ 0 mls/hr IV .Q0M PRN; Protocol; Per Protocol PRN Reason: Hypoglycemia Protocol Vancomycin HCl (Vancocin 750mg/Ns 150 Ml) 150 mls @ 125 mls/hr IV Q12H [facility] Stop: 08/14/17 22:01 Last Admin: 08/09/17 22:28 Dose: Not Given Vancomycin HCl 750 mg/ (Dextrose) 150 mls @ 125 mls/hr IVPB Q12 [facility] Last Admin: 08/09/17 21:39 Dose: 125 mls/hr Insulin Human Regular (Novolin R) 0 unit SC ACHS [facility] PRN Reason: Protocol Last Admin: 08/09/17 21:21 Dose: Not Given Losartan Potassium (Cozaar) 25 mg PO DAILY [facility] Last Admin: 08/09/17 10:32 Dose: 25 mg Metoprolol Tartrate (Lopressor) 50 mg PO DAILY [facility] Last Admin: 08/09/17 10:32 Dose: 50 mg Edbmi-9-Fcbc Ethyl Esters (Lovaza) 1 gm PO DAILY [facility] Last Admin: 08/09/17 10:32 Dose: 1 gm Oxycodone/Acetaminophen (Percocet 5/325 Mg Tab) 1 tab PO Q4 PRN PRN Reason: Pain, severe (8-10) Stop: 08/11/17 14:53 Last Admin: 08/09/17 23:35 Dose: 1 tab Rosuvastatin Calcium (Crestor) 20 mg PO HS [facility] Last Admin: 08/09/17 21:38 Dose: 20 mg - Labs Labs: 08/10/17 06:50 08/09/17 06:51 PT 11.4 SECONDS (9.7-12.2) 08/08/17 10:30 INR 1.0 08/08/17 10:30 APTT 28 SECONDS (21-34) 08/08/17 10:30
[2017-08-10 07:49] LABS: ALB/GLOB RATIO 0.9 (1.0-2.1); ALBUMIN 3.1 g/dL (3.5-5.0); ALT/SGPT 17 U/L (9-52); AST/SGOT 17 U/L (14-36); BLOOD UREA NITROGEN 18 mg/dL (7-17); GFR AFRICAN-AMERICAN > 60; GFR NON-AFRICAN AMERICAN > 60
[2017-08-10] MEDS: Oxycodone/Acetaminophen 5/325 mg Tab PO PRN ×3 (08:37→19:40)
[2017-08-10] MEDS: (Novolin R) Insulin Human Regular 100 units/ml vial SC SCH ×4 (08:39→21:29)
--- NOTE | 2017-08-10 08:44 | CP.PCM.PN ---
<Latisha Le - Last Filed: 08/10/17 11:07> Subjective - Date & Time of Evaluation Date of Evaluation: 08/10/17 Time of Evaluation: 08:40 - Subjective Subjective: Patient seen and examined at bedside. Patient resting comfrotably in bed with no new complaints at this time. Patient still having pain in the left foot and paresthesia in right foot. She reports eating well and tolerating diet. Patient is moving her bowels without difficulty. She denies fever, chills, chest pain, SOB, abdominal pain, n/v/d/c, calf pain, and lower extremity swelling. Objective - Vital Signs/Intake and Output Vital Signs (last 24 hours): Temp Pulse Resp BP Pulse Ox 97.2 F L 68 20 118/65 95 08/10/17 08:22 08/10/17 08:22 08/10/17 08:22 08/10/17 08:22 08/10/17 08:22 Intake and Output: 08/10/17 08/10/17 06:59 18:59 Intake Total 850 Balance 850 - Medications Medications: Current Medications Amlodipine Besylate (Norvasc) 5 mg PO DAILY [facility] Last Admin: 08/09/17 10:33 Dose: 5 mg Dextrose (Dextrose 50% Inj) 0 ml IV STAT PRN; Protocol PRN Reason: Hypoglycemia Protocol Dextrose (Glutose 15) 0 gm PO ONCE PRN; Protocol PRN Reason: Hypoglycemia Protocol Famotidine (Pepcid) 20 mg PO DAILY PRN PRN Reason: Heartburn Gabapentin (Neurontin) 600 mg PO DAILY [facility] Last Admin: 08/09/17 10:33 Dose: 600 mg Glucagon (Glucagen Diagnostic Kit) 0 mg IM STAT PRN; Protocol PRN Reason: Hypoglycemia Protocol Sodium Chloride (Sodium Chloride 0.9%) 1,000 mls @ 75 mls/hr IV .[id number] [facility] Last Admin: 08/10/17 07:20 Dose: 75 mls/hr Dextrose (Dextrose 5% In Water 1000 Ml) 1,000 mls @ 0 mls/hr IV .Q0M PRN; Protocol; Per Protocol PRN Reason: Hypoglycemia Protocol Vancomycin HCl (Vancocin 750mg/Ns 150 Ml) 150 mls @ 125 mls/hr IV Q12H [facility] Stop: 08/14/17 22:01 Last Admin: 08/09/17 22:28 Dose: Not Given Vancomycin HCl 750 mg/ (Dextrose) 150 mls @ 125 mls/hr IVPB Q12 [facility] Last Admin: 08/09/17 21:39 Dose: 125 mls/hr Insulin Human Regular (Novolin R) 0 unit SC ACHS [facility] PRN Reason: Protocol Last Admin: 08/09/17 21:21 Dose: Not Given Losartan Potassium (Cozaar) 25 mg PO DAILY [facility] Last Admin: 08/09/17 10:32 Dose: 25 mg Metoprolol Tartrate (Lopressor) 50 mg PO DAILY [facility] Last Admin: 08/09/17 10:32 Dose: 50 mg Csozz-9-Nywv Ethyl Esters (Lovaza) 1 gm PO DAILY [facility] Last Admin: 08/09/17 10:32 Dose: 1 gm Oxycodone/Acetaminophen (Percocet 5/325 Mg Tab) 1 tab PO Q4 PRN PRN Reason: Pain, severe (8-10) Stop: 08/11/17 14:53 Last Admin: 08/09/17 23:35 Dose: 1 tab Rosuvastatin Calcium (Crestor) 20 mg PO HS [facility] Last Admin: 08/09/17 21:38 Dose: 20 mg - Labs Labs: 08/10/17 06:50 08/10/17 06:50 PT 11.4 SECONDS (9.7-12.2) 08/08/17 10:30 INR 1.0 08/08/17 10:30 APTT 28 SECONDS (21-34) 08/08/17 10:30 - Additional Findings Additional findings: - Constitutional Appears: Non-toxic, No Acute Distress - Head Exam Head Exam: ATRAUMATIC, NORMAL INSPECTION, NORMOCEPHALIC - Eye Exam Eye Exam: EOMI, Normal appearance, PERRL - ENT Exam ENT Exam: Mucous Membranes Moist - Respiratory Exam Respiratory Exam: Clear to Auscultation Bilateral, NORMAL BREATHING PATTERN. absent: Accessory Muscle Use, Rales, Rhonchi, Wheezes, Respiratory Distress - Cardiovascular Exam Cardiovascular Exam: RRR, +S1, +S2. absent: Bradycardia, Tachycardia, Diastolic murmur, Gallop, Rubs, Systolic Murmur - GI/Abdominal Exam GI & Abdominal Exam: Normal Bowel Sounds, Soft. absent: Distended, Tenderness - Extremities Exam Additional comments: Gangrenous 1st and 2nd digits of right foot Cracked skin wound on the bottom of the left foot that are exquisitely tender - Neurological Exam Neurological exam: Alert, Oriented x3 - Psychiatric Exam Psychiatric exam: Normal Affect, Normal Mood - Skin Skin Exam: Dry, Intact, Warm Assessment and Plan - Assessment and Plan (Free Text) Plan: Gangrene of 1st and 2nd digits of right foot * Podiatry consulted, Dr. Rocha; recs appreciated * Plan for amputation of 1st and 2nd digits on Tuesday08/12/17 * Preop studies * hold eliquis, ASA, and DVT prophylaxis * Vascular surgery consulted, Dr. Nur; recs appreciated * Infectious disease consulted, Dr. Quintero; recs appreciated * Wound care * PT * Blood cultures negative x24H * Percocet PRN pain * Vancomycin 750 mg Q12H Imaging * Foot XR: no evidence of osteomyelitis, gas forming cellulitis appreciated MERLINE * BUN/Cr: 30/1.3 * NS @ 75 cc/h * Hold Metformin History of PVD with b/l stents * Vascular surgery consulted, Dr. Nur; recs appreciated Imaging * Abd CTA pending DM * Accuchecks * ISS medium dose * hypoglycemic protocol * continue gabapentin 600 mg daily * hold metformin, januvia, and glipizide HTN * Continue home meds: * norvasc 5 mg daily * losartan 25 mg daily * lopressor 50 mg daily HLD * Crestor 20 mg HS * [employer] 3 History of DVT * hold home eliquis for surgery PPX * GI: pepcid 20 mg daily * DVT: contraindicated at this time, preop <Luis Alberto Baker H - Last Filed: 08/10/17 15:25> Objective - Vital Signs/Intake and Output Vital Signs (last 24 hours): Temp Pulse Resp BP Pulse Ox 97.2 F L 68 20 118/65 95 08/10/17 08:22 08/10/17 08:22 08/10/17 08:22 08/10/17 08:22 08/10/17 08:22 Intake and Output: 08/10/17 08/10/17 06:59 18:59 Intake Total 850 320 Balance 850 320 - Medications Medications: Current Medications Amlodipine Besylate (Norvasc) 5 mg PO DAILY [facility] Last Admin: 08/10/17 09:20 Dose: 5 mg Dextrose (Dextrose 50% Inj) 0 ml IV STAT PRN; Protocol PRN Reason: Hypoglycemia Protocol Dextrose (Glutose 15) 0 gm PO ONCE PRN; Protocol PRN Reason: Hypoglycemia Protocol Famotidine (Pepcid) 20 mg PO DAILY PRN PRN Reason: Heartburn Gabapentin (Neurontin) 600 mg PO DAILY [facility] Last Admin: 08/10/17 09:20 Dose: 600 mg Glucagon (Glucagen Diagnostic Kit) 0 mg IM STAT PRN; Protocol PRN Reason: Hypoglycemia Protocol Sodium Chloride (Sodium Chloride 0.9%) 1,000 mls @ 75 mls/hr IV .[id number] [facility] Last Admin: 08/10/17 07:20 Dose: 75 mls/hr Dextrose (Dextrose 5% In Water 1000 Ml) 1,000 mls @ 0 mls/hr IV .Q0M PRN; Protocol; Per Protocol PRN Reason: Hypoglycemia Protocol Vancomycin HCl 750 mg/ (Dextrose) 150 mls @ 125 mls/hr IVPB Q12 [facility] Last Admin: 08/10/17 09:19 Dose: 125 mls/hr Insulin Human Regular (Novolin R) 0 unit SC ACHS [facility] PRN Reason: Protocol Last Admin: 08/10/17 12:21 Dose: 4 unit Losartan Potassium (Cozaar) 25 mg PO DAILY [facility] Last Admin: 08/10/17 09:20 Dose: 25 mg Metoprolol Tartrate (Lopressor) 50 mg PO DAILY [facility] Last Admin: 08/10/17 09:20 Dose: 50 mg Eotqh-8-Jore Ethyl Esters (Lovaza) 1 gm PO DAILY [facility] Last Admin: 08/10/17 09:20 Dose: 1 gm Oxycodone/Acetaminophen (Percocet 5/325 Mg Tab) 1 tab PO Q4 PRN PRN Reason: Pain, severe (8-10) Stop: 08/11/17 14:53 Last Admin: 08/10/17 14:24 Dose: 1 tab Rosuvastatin Calcium (Crestor) 20 mg PO HS [facility] Last Admin: 08/09/17 21:38 Dose: 20 mg - Labs Labs: 08/10/17 06:50 08/10/17 06:50 PT 11.4 SECONDS (9.7-12.2) 08/08/17 10:30 INR 1.0 08/08/17 10:30 APTT 28 SECONDS (21-34) 08/08/17 10:30 Attending/Attestation - Attestation I have personally seen and examined this patient.: Yes I have fully participated in the care of the patient.: Yes I have reviewed all pertinent clinical information, including history, physical exam and plan: Yes Notes (Text): 08/10/17 15:25 Medical attending: Patient was seen and examined by me with the medical social worker. Reviewed the above note by the resident and agree with the above. Patient was not in any acute distress today. She reported that she did okay overnight. The plan is for amputation of the first and second digits of her foot on this coming Tuesday She remains on IV antibiotics at this time. Vascular surgery ordered a CTA of the lower extremities to assess the peripheral vascular disease Thank you very much, Luis Alberto Baker
--- NOTE | 2017-08-10 09:17 | CT ---
PROCEDURE: CT Angiography Abdomen, Pelvis and Lower Extremity with Contrast HISTORY: non-healing lower extremity ulcers COMPARISON: None. TECHNIQUE: Technique: CT angiography of the abdomen, pelvis and bilateral lower extremities performed in the arterial phase of enhancement. Coronal and sagittal reformats, and well as rotating MIP images of the vessels generated at the workstation. Intravenous contrast dose: 100 cubic centimeters Visipaque 320 Radiation dose: Total exam DLP = 2049.19 MGy-cm. This CT exam was performed using one or more of the following dose reduction techniques: Automated exposure control, adjustment of the mA and/or kV according to patient size, and/or use of iterative reconstruction technique. FINDINGS: CT ANGIOGRAPHY: ABDOMINAL AORTA:: Mild calcific plaque. Ulcerative plaque in the infrarenal aorta proximal to the bifurcation. MAJOR AORTIC BRANCHES: Celiac [place]: Unremarkable. Superior mesenteric artery: Unremarkable. Inferior mesenteric artery: Unremarkable. Renal arteries: Unremarkable. PELVIC ARTERIES: Right Common Iliac: Mild diffuse stenosis of the common iliac artery. Right External Iliac: Moderate diffuse stenosis of the external iliac artery. Right Internal Iliac: Mildly stenotic Left Common Iliac: Moderate diffuse stenosis of common iliac artery. Left External Iliac: Diffuse stenosis of the external iliac artery. Left Internal Iliac: No stenosis. RIGHT LOWER EXTREMITY ARTERIES: Right Common Femoral: Mildly stenotic. Right Superficial Femoral: Previous stented SFA is patent. Right Profunda Femoris: Unremarkable. Right Popliteal:Unremarkable. Right Anterior Tibial: Unremarkable. Right Tibioperoneal Trunk: Heavily calcified tibioperoneal artery which limits evaluation. Right Posterior Tibial: Unremarkable. Right Peroneal: Unremarkable. Right dorsalis pedis : Unremarkable. LEFT LOWER EXTREMITY ARTERIES: Left Common Femoral: Moderate stenosis of the common femoral artery. Left Superficial Femoral: Loosely stented superficial femoral artery is occluded. Left Profunda Femoris: Unremarkable. Left Popliteal: severe stenosis of popliteal artery. Left Anterior Tibial: Unremarkable. Left Tibioperoneal Trunk: Moderate calcific plaque of the tibioperoneal artery which limits evaluation but believed to be patent. Left Posterior Tibial: Unremarkable. Left Peroneal: Unremarkable. Left Dorsalis pedis: Unremarkable. NON-ANGIOGRAPHIC ASPECT OF THE EXAM: LOWER THORAX: Unremarkable. LIVER: Unremarkable. No gross lesion or ductal dilatation. GALLBLADDER AND BILE DUCTS: Unremarkable. PANCREAS: Unremarkable. No gross lesion or ductal dilatation. SPLEEN: Unremarkable. ADRENALS: Unremarkable. No mass. KIDNEYS AND URETERS: Unremarkable. No hydronephrosis. No solid mass. STOMACH AND BOWEL: Unremarkable. No obstruction. No gross mural thickening. APPENDIX: Not visualized. Calcific nodule seen in the right lower quadrant may represent a calcified lymph node. PERITONEUM: Unremarkable. No free fluid. No free air. LYMPH NODES: Unremarkable. No enlarged lymph nodes. BLADDER: Unremarkable. REPRODUCTIVE: Unremarkable. BONES: No acute fracture. OTHER FINDINGS: None. IMPRESSION: CT ANGIOGRAM ABDOMEN/ PELVIS: 1. The abdominal is mild calcific plaque and a focal ulcerative plaque in the distal aorta. 2. There is moderate stenosis of both right and left common iliac artery and external iliac arteries. RIGHT LOWER EXTREMITY CT ANGIOGRAM: 1. Mild stenosis of the common femoral artery. 2. Previously stented SFA is patent. 3. Popliteal artery is unremarkable. 4. Anterior tibial artery is normal. The tibioperoneal artery is heavily calcified which limits its evaluation but is believed to be patent. The peroneal and posterior tibial artery patent. LEFT LOWER EXTREMITY CT ANGIOGRAM: 1. Moderate stenosis of the common femoral artery. Profunda femoral artery is unremarkable. 2. Previously stented SFA is occluded. 3. Popliteal artery is severely stenotic. 4. Anterior tibial artery, posterior tibial artery, and peroneal artery are patent.
[2017-08-10] MEDS: Vancomycin 750 MG in Dextrose 5% In Water 150 ML IVPB SCH ×2 (09:19→21:31)
[2017-08-10] MEDS: Omega-3-Acid Ethyl Esters 1 GM Cap PO SCH (09:20)
--- NOTE | 2017-08-10 10:30 | CP.PCM.PN ---
Subjective - Date & Time of Evaluation Date of Evaluation: 08/10/17 Time of Evaluation: 10:26 - Subjective Subjective: Podiatry note for Dr. Rocha 67 y/o female was seen at bedside this morning concerning Right foot gangrenous digits of 1st and 2nd. Patient remains well rested in bed, AAOx3, NAD overnight. Right foot remains open to air without dressing. Patient denies of ant other pedal complaints. Pt denies of any recent F/N/V/C/SOB. Podiatry (Dr. Rocha) plans for surgical amputation of right 1st and 2nd digit this Tuesday. Objective - Vital Signs/Intake and Output Vital Signs (last 24 hours): Temp Pulse Resp BP Pulse Ox 97.2 F L 68 20 118/65 95 08/10/17 08:22 08/10/17 08:22 08/10/17 08:22 08/10/17 08:22 08/10/17 08:22 Intake and Output: 08/10/17 08/10/17 06:59 18:59 Intake Total 850 Balance 850 - Medications Medications: Current Medications Amlodipine Besylate (Norvasc) 5 mg PO DAILY [facility] Last Admin: 08/10/17 09:20 Dose: 5 mg Dextrose (Dextrose 50% Inj) 0 ml IV STAT PRN; Protocol PRN Reason: Hypoglycemia Protocol Dextrose (Glutose 15) 0 gm PO ONCE PRN; Protocol PRN Reason: Hypoglycemia Protocol Famotidine (Pepcid) 20 mg PO DAILY PRN PRN Reason: Heartburn Gabapentin (Neurontin) 600 mg PO DAILY [facility] Last Admin: 08/10/17 09:20 Dose: 600 mg Glucagon (Glucagen Diagnostic Kit) 0 mg IM STAT PRN; Protocol PRN Reason: Hypoglycemia Protocol Sodium Chloride (Sodium Chloride 0.9%) 1,000 mls @ 75 mls/hr IV .[id number] [facility] Last Admin: 08/10/17 07:20 Dose: 75 mls/hr Dextrose (Dextrose 5% In Water 1000 Ml) 1,000 mls @ 0 mls/hr IV .Q0M PRN; Protocol; Per Protocol PRN Reason: Hypoglycemia Protocol Vancomycin HCl 750 mg/ (Dextrose) 150 mls @ 125 mls/hr IVPB Q12 [facility] Last Admin: 08/10/17 09:19 Dose: 125 mls/hr Insulin Human Regular (Novolin R) 0 unit SC ACHS [facility] PRN Reason: Protocol Last Admin: 08/10/17 08:39 Dose: 2 unit Losartan Potassium (Cozaar) 25 mg PO DAILY [facility] Last Admin: 08/10/17 09:20 Dose: 25 mg Metoprolol Tartrate (Lopressor) 50 mg PO DAILY [facility] Last Admin: 08/10/17 09:20 Dose: 50 mg Ddaly-5-Kscs Ethyl Esters (Lovaza) 1 gm PO DAILY [facility] Last Admin: 08/10/17 09:20 Dose: 1 gm Oxycodone/Acetaminophen (Percocet 5/325 Mg Tab) 1 tab PO Q4 PRN PRN Reason: Pain, severe (8-10) Stop: 08/11/17 14:53 Last Admin: 08/10/17 08:37 Dose: 1 tab Rosuvastatin Calcium (Crestor) 20 mg PO HS [facility] Last Admin: 08/09/17 21:38 Dose: 20 mg - Labs Labs: 08/10/17 06:50 08/10/17 06:50 PT 11.4 SECONDS (9.7-12.2) 08/08/17 10:30 INR 1.0 08/08/17 10:30 APTT 28 SECONDS (21-34) 08/08/17 10:30 - Constitutional Appears: Well, Non-toxic, No Acute Distress - Head Exam Head Exam: ATRAUMATIC - Extremities Exam Additional comments: Bilateral Lower Extremity exam: DERM: RIGHT: Right 1st and 2nd digit gangrenous with dry skin demarcation from distal tip proximally up to level of MTPJ, no fluctuance or probe to bone noted. no active drainage, no malodor, resolving erythema from yesterday noted on the medial ankle and distal medial leg LEFT: Erythema noted to Left foot 3rd 4th 5th digits extending proximally along the lateral aspect of left foot. No oipen wound noted. No drainage. No mal-odor , no probe to bone NEURO: Protective sensation grossly intact bilaterally VASC: DP/PT pulses are faintly palpable 1/4, ABLE SEAMAN: < 3 sec to all digits, TG: warm to cool, no pitting or non-pitting edema was observed ORTHO: no pain or tenderness on the palpation of the medial ankle - Neurological Exam Neurological Exam: Alert, Awake, Oriented x3 - Psychiatric Exam Psychiatric exam: Normal Affect, Normal Mood - Skin Skin Exam: Normal Color Assessment and Plan - Assessment and Plan (Free Text) Assessment: 67 yo female patient presenting with Right foot gangrene Plan: Patient was seen evaluated at bedside discuddedd in detail with Dr. Rocha labs and vitals reviewed Right foot open to air without any dressing Medical clearance requested from family medicine Medical clearance requested from Cardiology Podiatry will continue to follow in house Patient is scheduled for RIGHT foot 1st ray and 2nd digit amputation this TUESDAY with Dr. Rocha
--- NOTE | 2017-08-10 16:12 | CP.PCM.PN ---
Subjective - Date & Time of Evaluation Date of Evaluation: 08/10/17 Time of Evaluation: 07:25 - Subjective Subjective: Surgery Progress note. Dr. Nur Pt seen and examined at bedside. No acute events overnight. No N/V/D. Reports scheduled Podiatry intervention on Tuesday. Denies any new complaints. Objective - Vital Signs/Intake and Output Vital Signs (last 24 hours): Temp Pulse Resp BP Pulse Ox 97.2 F L 68 20 118/65 95 08/10/17 08:22 08/10/17 08:22 08/10/17 08:22 08/10/17 08:22 08/10/17 08:22 Intake and Output: 08/10/17 08/10/17 06:59 18:59 Intake Total 850 320 Balance 850 320 - Medications Medications: Current Medications Amlodipine Besylate (Norvasc) 5 mg PO DAILY [facility] Last Admin: 08/10/17 09:20 Dose: 5 mg Dextrose (Dextrose 50% Inj) 0 ml IV STAT PRN; Protocol PRN Reason: Hypoglycemia Protocol Dextrose (Glutose 15) 0 gm PO ONCE PRN; Protocol PRN Reason: Hypoglycemia Protocol Famotidine (Pepcid) 20 mg PO DAILY PRN PRN Reason: Heartburn Gabapentin (Neurontin) 600 mg PO DAILY [facility] Last Admin: 08/10/17 09:20 Dose: 600 mg Glucagon (Glucagen Diagnostic Kit) 0 mg IM STAT PRN; Protocol PRN Reason: Hypoglycemia Protocol Sodium Chloride (Sodium Chloride 0.9%) 1,000 mls @ 75 mls/hr IV .[id number] [facility] Last Admin: 08/10/17 07:20 Dose: 75 mls/hr Dextrose (Dextrose 5% In Water 1000 Ml) 1,000 mls @ 0 mls/hr IV .Q0M PRN; Protocol; Per Protocol PRN Reason: Hypoglycemia Protocol Vancomycin HCl 750 mg/ (Dextrose) 150 mls @ 125 mls/hr IVPB Q12 [facility] Last Admin: 08/10/17 09:19 Dose: 125 mls/hr Insulin Human Regular (Novolin R) 0 unit SC ACHS [facility] PRN Reason: Protocol Last Admin: 08/10/17 12:21 Dose: 4 unit Losartan Potassium (Cozaar) 25 mg PO DAILY [facility] Last Admin: 08/10/17 09:20 Dose: 25 mg Metoprolol Tartrate (Lopressor) 50 mg PO DAILY [facility] Last Admin: 08/10/17 09:20 Dose: 50 mg Iogwl-9-Juyn Ethyl Esters (Lovaza) 1 gm PO DAILY [facility] Last Admin: 08/10/17 09:20 Dose: 1 gm Oxycodone/Acetaminophen (Percocet 5/325 Mg Tab) 1 tab PO Q4 PRN PRN Reason: Pain, severe (8-10) Stop: 08/11/17 14:53 Last Admin: 08/10/17 14:24 Dose: 1 tab Rosuvastatin Calcium (Crestor) 20 mg PO HS [facility] Last Admin: 08/09/17 21:38 Dose: 20 mg - Labs Labs: 08/10/17 06:50 08/10/17 06:50 PT 11.4 SECONDS (9.7-12.2) 08/08/17 10:30 INR 1.0 08/08/17 10:30 APTT 28 SECONDS (21-34) 08/08/17 10:30 - Constitutional Appears: Well, Non-toxic, No Acute Distress - Head Exam Head Exam: ATRAUMATIC, NORMAL INSPECTION, NORMOCEPHALIC - Eye Exam Eye Exam: EOMI, Normal appearance - ENT Exam ENT Exam: Mucous Membranes Moist - Respiratory Exam Respiratory Exam: NORMAL BREATHING PATTERN. absent: Accessory Muscle Use, Respiratory Distress - Cardiovascular Exam Cardiovascular Exam: absent: JVD - GI/Abdominal Exam GI & Abdominal Exam: Soft. absent: Distended, Guarding, Rigid, Tenderness, Rebound - Extremities Exam Additional comments: Right 1st and 2nd toe dry gangrene. Left foot pressure ulcer at heel - Neurological Exam Neurological Exam: Alert, Awake, Oriented x3 - Psychiatric Exam Psychiatric exam: Normal Affect, Normal Mood - Skin Skin Exam: Dry, Warm Assessment and Plan - Assessment and Plan (Free Text) Assessment: 67yo F with necrotic R 1st & 2nd toes as well as L heel ulcer. -CTA with run-off noted Plan: - No further vascular surgery intervention indicated at this time - Further surgical management as per Podiatry team. Planned intervention on Tuesday Further recs as per Dr. Liudmila Llanos PGY1 Surgery pager: [phone]
[2017-08-11] MEDS: Sodium Chloride 0.9% 1,000 ML IV SCH ×3 (06:32→23:00)
[2017-08-11 08:11] LABS: BASO % 0.7 % (0.0-2.0); EOS # 0.1 K/uL (0.0-0.7); EOS % 1.3 % (0.0-4.0); HEMOGLOBIN 10.6 g/dL (11.0-16.0); LYMPH % 14.9 % (20.0-40.0); MEAN CELL VOLUME 78.5 fL (81.0-99.0); MEAN CORPUSCULAR HEMOGLOBIN 26.8 pg (27.0-31.0); MEAN CORPUSCULAR HGB CONC 34.1 g/dL (33.0-37.0); MEAN PLATELET VOLUME 9.1 fL (7.2-11.7); MONO # 0.3 K/uL (0.0-0.8); MONO % 5.1 % (0.0-10.0); NEUT # 5.3 K/uL (1.8-7.0); RBC 3.96 Mil/uL (3.80-5.20); RED CELL DISTRIBUTION WIDTH 13.5 % (11.5-14.5); WHITE BLOOD COUNT 6.8 K/uL (4.8-10.8)
[2017-08-11 08:28] LABS: ALBUMIN 3.5 g/dL (3.5-5.0); ALT/SGPT 22 U/L (9-52); AST/SGOT 14 U/L (14-36); BLOOD UREA NITROGEN 12 mg/dL (7-17); CALCIUM 9.2 mg/dl (8.6-10.4); GFR AFRICAN-AMERICAN > 60; GFR NON-AFRICAN AMERICAN > 60
[2017-08-11] MEDS: (Novolin R) Insulin Human Regular 100 units/ml vial SC SCH ×4 (08:28→21:40)
[2017-08-11] MEDS: Oxycodone/Acetaminophen 5/325 mg Tab PO PRN (08:32)
--- NOTE | 2017-08-11 09:31 | CP.PCM.PN ---
<Viji Mckinney - Last Filed: 08/11/17 09:28> Subjective - Date & Time of Evaluation Date of Evaluation: 08/11/17 Time of Evaluation: 09:28 - Subjective Subjective: Podiatry note for Dr. Rocha 67 y/o female was seen at bedside this morning concerning Right foot gangrenous digits of 1st and 2nd. Right foot remains open to air without dressing. She is doing well in bed, AAOx3, NAD overnight. Patient denies of ant other pedal complaints. Pt denies of any recent F/N/V/C/SOB. Podiatry (Dr. Rocha) plans for surgical amputation of right 1st and 2nd digit this Tuesday afternoon. Objective - Vital Signs/Intake and Output Vital Signs (last 24 hours): Temp Pulse Resp BP Pulse Ox 98.3 F 85 20 145/73 96 08/11/17 07:42 08/11/17 07:42 08/11/17 07:42 08/11/17 07:42 08/11/17 07:42 Intake and Output: 08/11/17 08/11/17 06:59 18:59 Intake Total 900 600 Balance 900 600 - Medications Medications: Current Medications Amlodipine Besylate (Norvasc) 5 mg PO DAILY [facility] Last Admin: 08/10/17 09:20 Dose: 5 mg Dextrose (Dextrose 50% Inj) 0 ml IV STAT PRN; Protocol PRN Reason: Hypoglycemia Protocol Dextrose (Glutose 15) 0 gm PO ONCE PRN; Protocol PRN Reason: Hypoglycemia Protocol Famotidine (Pepcid) 20 mg PO DAILY PRN PRN Reason: Heartburn Gabapentin (Neurontin) 600 mg PO DAILY [facility] Last Admin: 08/10/17 09:20 Dose: 600 mg Glucagon (Glucagen Diagnostic Kit) 0 mg IM STAT PRN; Protocol PRN Reason: Hypoglycemia Protocol Sodium Chloride (Sodium Chloride 0.9%) 1,000 mls @ 75 mls/hr IV .[id number] [facility] Last Admin: 08/11/17 06:32 Dose: 75 mls/hr Dextrose (Dextrose 5% In Water 1000 Ml) 1,000 mls @ 0 mls/hr IV .Q0M PRN; Protocol; Per Protocol PRN Reason: Hypoglycemia Protocol Vancomycin HCl 750 mg/ (Dextrose) 150 mls @ 125 mls/hr IVPB Q12 [facility] Last Admin: 08/10/17 21:31 Dose: 125 mls/hr Insulin Human Regular (Novolin R) 0 unit SC ACHS [facility] PRN Reason: Protocol Last Admin: 08/11/17 08:28 Dose: 3 unit Losartan Potassium (Cozaar) 25 mg PO DAILY [facility] Last Admin: 08/10/17 09:20 Dose: 25 mg Metoprolol Tartrate (Lopressor) 50 mg PO DAILY [facility] Last Admin: 08/10/17 09:20 Dose: 50 mg Cphnr-2-Cmfx Ethyl Esters (Lovaza) 1 gm PO DAILY [facility] Last Admin: 08/10/17 09:20 Dose: 1 gm Oxycodone/Acetaminophen (Percocet 5/325 Mg Tab) 1 tab PO Q4 PRN PRN Reason: Pain, severe (8-10) Stop: 08/11/17 14:53 Last Admin: 08/11/17 08:32 Dose: 1 tab Rosuvastatin Calcium (Crestor) 20 mg PO HS [facility] Last Admin: 08/10/17 21:33 Dose: 20 mg - Labs Labs: 08/11/17 07:55 08/11/17 07:55 PT 11.4 SECONDS (9.7-12.2) 08/08/17 10:30 INR 1.0 08/08/17 10:30 APTT 28 SECONDS (21-34) 08/08/17 10:30 - Constitutional Appears: Well, Non-toxic, No Acute Distress - Head Exam Head Exam: ATRAUMATIC - Extremities Exam Additional comments: Bilateral Lower Extremity exam: DERM: No significant changes from yesterdays RIGHT: Right 1st and 2nd digit gangrenous with dry skin demarcation from distal tip proximally up to level of MTPJ, no fluctuance or probe to bone noted. no active drainage, no malodor, resolving erythema from yesterday noted on the medial ankle and distal medial leg LEFT: Erythema noted to Left foot 3rd 4th 5th digits extending proximally along the lateral aspect of left foot. No oipen wound noted. No drainage. No mal-odor , no probe to bone NEURO: Protective sensation grossly intact bilaterally VASC: DP/PT pulses are faintly palpable 1/4, GEODESIST: < 3 sec to all digits, TG: warm to cool, no pitting or non-pitting edema was observed ORTHO: no pain or tenderness on the palpation of the medial ankle - Neurological Exam Neurological Exam: Alert, Awake, Oriented x3 - Psychiatric Exam Psychiatric exam: Normal Affect, Normal Mood Assessment and Plan - Assessment and Plan (Free Text) Assessment: 67 yo female patient presenting with Right foot gangrene Plan: Patient was seen evaluated at bedside discuddedd in detail with Dr. Rocha labs and vitals reviewed Right foot open to air without any dressing Multipodus boots ordered for Left foot Medical clearance requested from family medicine Medical clearance requested from Cardiology Podiatry will continue to follow in house Patient is scheduled for RIGHT foot 1st ray and 2nd digit amputation with Dr. Rocha <Nelson Rocha D - Last Filed: 08/11/17 12:10> Objective - Vital Signs/Intake and Output Vital Signs (last 24 hours): Temp Pulse Resp BP Pulse Ox 98.3 F 85 20 145/73 96 08/11/17 07:42 08/11/17 07:42 08/11/17 07:42 08/11/17 07:42 08/11/17 07:42 Intake and Output: 08/11/17 08/11/17 06:59 18:59 Intake Total 900 600 Balance 900 600 - Medications Medications: Current Medications Amlodipine Besylate (Norvasc) 5 mg PO DAILY [facility] Last Admin: 08/11/17 11:05 Dose: 5 mg Dextrose (Dextrose 50% Inj) 0 ml IV STAT PRN; Protocol PRN Reason: Hypoglycemia Protocol Dextrose (Glutose 15) 0 gm PO ONCE PRN; Protocol PRN Reason: Hypoglycemia Protocol Famotidine (Pepcid) 20 mg PO DAILY PRN PRN Reason: Heartburn Last Admin: 08/11/17 11:05 Dose: 20 mg Gabapentin (Neurontin) 600 mg PO BID [facility] Glucagon (Glucagen Diagnostic Kit) 0 mg IM STAT PRN; Protocol PRN Reason: Hypoglycemia Protocol Sodium Chloride (Sodium Chloride 0.9%) 1,000 mls @ 75 mls/hr IV .[id number] [facility] Last Admin: 08/11/17 11:05 Dose: Not Given Dextrose (Dextrose 5% In Water 1000 Ml) 1,000 mls @ 0 mls/hr IV .Q0M PRN; Protocol; Per Protocol PRN Reason: Hypoglycemia Protocol Vancomycin HCl 750 mg/ (Dextrose) 150 mls @ 125 mls/hr IVPB Q12 [facility] Last Admin: 08/10/17 21:31 Dose: 125 mls/hr Insulin Human Regular (Novolin R) 0 unit SC ACHS [facility] PRN Reason: Protocol Last Admin: 08/11/17 08:28 Dose: 3 unit Ketorolac Tromethamine (Toradol) 30 mg IVP Q6 PRN PRN Reason: Pain, moderate (4-7) Losartan Potassium (Cozaar) 25 mg PO DAILY [facility] Last Admin: 08/11/17 11:04 Dose: 25 mg Metoprolol Tartrate (Lopressor) 50 mg PO DAILY [facility] Last Admin: 08/11/17 11:05 Dose: 50 mg Rcxbs-3-Fpgq Ethyl Esters (Lovaza) 1 gm PO DAILY [facility] Last Admin: 08/11/17 11:05 Dose: 1 gm Oxycodone/Acetaminophen (Percocet 5/325 Mg Tab) 1 tab PO Q4 PRN PRN Reason: Pain, severe (8-10) Stop: 08/11/17 14:53 Last Admin: 08/11/17 08:32 Dose: 1 tab Rosuvastatin Calcium (Crestor) 20 mg PO HS [facility] Last Admin: 08/10/17 21:33 Dose: 20 mg Trazodone HCl (Desyrel) 25 mg PO HS [facility] Stop: 08/11/17 22:01 - Labs Labs: 08/11/17 07:55 08/11/17 07:55 PT 11.4 SECONDS (9.7-12.2) 08/08/17 10:30 INR 1.0 08/08/17 10:30 APTT 28 SECONDS (21-34) 08/08/17 10:30 Attending/Attestation - Attestation I have personally seen and examined this patient.: Yes I have fully participated in the care of the patient.: Yes I have reviewed all pertinent clinical information, including history, physical exam and plan: Yes
[2017-08-11] MEDS: Omega-3-Acid Ethyl Esters 1 GM Cap PO SCH (11:05)
--- NOTE | 2017-08-11 11:27 | CP.PCM.PN ---
Addendum entered and electronically signed by Latisha Le DO 08/11/17 13: 24: Patient is medically optimized for the OR tomorrow, 08/11/17. Original Note: <Latisha Le - Last Filed: 08/11/17 11:24> Subjective - Date & Time of Evaluation Date of Evaluation: 08/11/17 Time of Evaluation: 07:30 - Subjective Subjective: Patient seen and examined at bedside. Patient resting comfortably in bed. She is still having pain and tingling in both feet, but the pain in her left foot has spread more proximally on the dorsal aspect. She reports to eating well and tolerating diet. She is having bowel movements without difficulty and is able to walk to and from the bathroom. She is having some difficulty sleeping at night. She denies fever, chills, chest pain, abdominal pain, shortness of breath , and n/v/d. Objective - Vital Signs/Intake and Output Vital Signs (last 24 hours): Temp Pulse Resp BP Pulse Ox 98.3 F 85 20 145/73 96 08/11/17 07:42 08/11/17 07:42 08/11/17 07:42 08/11/17 07:42 08/11/17 07:42 Intake and Output: 08/11/17 08/11/17 06:59 18:59 Intake Total 900 600 Balance 900 600 - Medications Medications: Current Medications Amlodipine Besylate (Norvasc) 5 mg PO DAILY [facility] Last Admin: 08/11/17 11:05 Dose: 5 mg Dextrose (Dextrose 50% Inj) 0 ml IV STAT PRN; Protocol PRN Reason: Hypoglycemia Protocol Dextrose (Glutose 15) 0 gm PO ONCE PRN; Protocol PRN Reason: Hypoglycemia Protocol Famotidine (Pepcid) 20 mg PO DAILY PRN PRN Reason: Heartburn Last Admin: 08/11/17 11:05 Dose: 20 mg Gabapentin (Neurontin) 600 mg PO BID [facility] Glucagon (Glucagen Diagnostic Kit) 0 mg IM STAT PRN; Protocol PRN Reason: Hypoglycemia Protocol Sodium Chloride (Sodium Chloride 0.9%) 1,000 mls @ 75 mls/hr IV .[id number] [facility] Last Admin: 08/11/17 11:05 Dose: Not Given Dextrose (Dextrose 5% In Water 1000 Ml) 1,000 mls @ 0 mls/hr IV .Q0M PRN; Protocol; Per Protocol PRN Reason: Hypoglycemia Protocol Vancomycin HCl 750 mg/ (Dextrose) 150 mls @ 125 mls/hr IVPB Q12 [facility] Last Admin: 08/10/17 21:31 Dose: 125 mls/hr Insulin Human Regular (Novolin R) 0 unit SC ACHS [facility] PRN Reason: Protocol Last Admin: 08/11/17 08:28 Dose: 3 unit Ketorolac Tromethamine (Toradol) 30 mg IVP Q6 PRN PRN Reason: Pain, moderate (4-7) Losartan Potassium (Cozaar) 25 mg PO DAILY [facility] Last Admin: 08/11/17 11:04 Dose: 25 mg Metoprolol Tartrate (Lopressor) 50 mg PO DAILY [facility] Last Admin: 08/11/17 11:05 Dose: 50 mg Ihlwd-6-Prvg Ethyl Esters (Lovaza) 1 gm PO DAILY [facility] Last Admin: 08/11/17 11:05 Dose: 1 gm Oxycodone/Acetaminophen (Percocet 5/325 Mg Tab) 1 tab PO Q4 PRN PRN Reason: Pain, severe (8-10) Stop: 08/11/17 14:53 Last Admin: 08/11/17 08:32 Dose: 1 tab Rosuvastatin Calcium (Crestor) 20 mg PO [facility] Last Admin: 08/10/17 21:33 Dose: 20 mg Trazodone HCl (Desyrel) 25 mg PO [facility] Stop: 08/11/17 22:01 - Labs Labs: 08/11/17 07:55 08/11/17 07:55 PT 11.4 SECONDS (9.7-12.2) 08/08/17 10:30 INR 1.0 08/08/17 10:30 APTT 28 SECONDS (21-34) 08/08/17 10:30 - Additional Findings Additional findings: - Constitutional Appears: Non-toxic, No Acute Distress - Head Exam Head Exam: ATRAUMATIC, NORMAL INSPECTION, NORMOCEPHALIC - Eye Exam Eye Exam: EOMI, Normal appearance, PERRL - ENT Exam ENT Exam: Mucous Membranes Moist - Respiratory Exam Respiratory Exam: Clear to Auscultation Bilateral, NORMAL BREATHING PATTERN. absent: Accessory Muscle Use, Rales, Rhonchi, Wheezes, Respiratory Distress - Cardiovascular Exam Cardiovascular Exam: RRR, +S1, +S2. absent: Bradycardia, Tachycardia, Diastolic murmur, Gallop, Rubs, Systolic Murmur - GI/Abdominal Exam GI & Abdominal Exam: Normal Bowel Sounds, Soft. absent: Distended, Tenderness - Extremities Exam Additional comments: Gangrenous 1st and 2nd digits of right foot Cracked skin wound on the bottom of the left foot that are exquisitely tender - Neurological Exam Neurological exam: Alert, Oriented x3 - Psychiatric Exam Psychiatric exam: Normal Affect, Normal Mood - Skin Skin Exam: Dry, Intact, Warm Assessment and Plan - Assessment and Plan (Free Text) Plan: Disposition: Patient awaiting amputation of 1st and 2nd digits scheduled for Tuesday08/12/17. Patient had difficulty sleeping last night so we will give her a low dose of trazadone tonight. Gangrene of 1st and 2nd digits of right foot * Podiatry consulted, Dr. Rocha; recs appreciated * Plan for amputation of 1st and 2nd digits on Tuesday08/12/17 * Preop studies * hold eliquis, ASA, and DVT prophylaxis * Vascular surgery consulted, Dr. Nur; recs appreciated * Infectious disease consulted, Dr. Quintero; recs appreciated * Wound care * PT * Blood cultures negative x24H * Percocet PRN pain * Toradol 30 mg IV Q6 prn pain * Vancomycin 750 mg Q12H Imaging * Foot XR: no evidence of osteomyelitis, gas forming cellulitis appreciated [facility] * BUN/Cr: 30/1.3 * NS @ 75 cc/h * Hold Metformin History of PVD with b/l stents * Vascular surgery consulted, Dr. Nur; recs appreciated Imaging * Abd CTA pending DM * Accuchecks * ISS medium dose * hypoglycemic protocol * continue gabapentin 600 mg BID * hold metformin, januvia, and glipizide HTN * Continue home meds: * norvasc 5 mg daily * losartan 25 mg daily * lopressor 50 mg daily HLD * Crestor 20 mg HS * [place] 3 History of DVT * hold home eliquis for surgery PPX * GI: pepcid 20 mg daily * DVT: contraindicated at this time, preop <Luis Alberto Baker H - Last Filed: 08/11/17 13:57> Objective - Vital Signs/Intake and Output Vital Signs (last 24 hours): Temp Pulse Resp BP Pulse Ox 98.3 F 85 20 145/73 96 08/11/17 07:42 08/11/17 07:42 08/11/17 07:42 08/11/17 07:42 08/11/17 07:42 Intake and Output: 08/11/17 08/11/17 06:59 18:59 Intake Total 900 600 Balance 900 600 - Medications Medications: Current Medications Amlodipine Besylate (Norvasc) 5 mg PO DAILY [facility] Last Admin: 08/11/17 11:05 Dose: 5 mg Dextrose (Dextrose 50% Inj) 0 ml IV STAT PRN; Protocol PRN Reason: Hypoglycemia Protocol Dextrose (Glutose 15) 0 gm PO ONCE PRN; Protocol PRN Reason: Hypoglycemia Protocol Famotidine (Pepcid) 20 mg PO DAILY PRN PRN Reason: Heartburn Last Admin: 08/11/17 11:05 Dose: 20 mg Gabapentin (Neurontin) 600 mg PO BID [facility] Glucagon (Glucagen Diagnostic Kit) 0 mg IM STAT PRN; Protocol PRN Reason: Hypoglycemia Protocol Sodium Chloride (Sodium Chloride 0.9%) 1,000 mls @ 75 mls/hr IV .[id number] [facility] Last Admin: 08/11/17 11:05 Dose: Not Given Dextrose (Dextrose 5% In Water 1000 Ml) 1,000 mls @ 0 mls/hr IV .Q0M PRN; Protocol; Per Protocol PRN Reason: Hypoglycemia Protocol Vancomycin HCl 750 mg/ (Dextrose) 150 mls @ 125 mls/hr IVPB Q12 [facility] Last Admin: 08/11/17 12:13 Dose: 125 mls/hr Insulin Human Regular (Novolin R) 0 unit SC ACHS [facility] PRN Reason: Protocol Last Admin: 08/11/17 12:13 Dose: 3 unit Ketorolac Tromethamine (Toradol) 30 mg IVP Q6 PRN PRN Reason: Pain, moderate (4-7) Losartan Potassium (Cozaar) 25 mg PO DAILY [facility] Last Admin: 08/11/17 11:04 Dose: 25 mg Metoprolol Tartrate (Lopressor) 50 mg PO DAILY [facility] Last Admin: 08/11/17 11:05 Dose: 50 mg Odkxo-2-Fxkc Ethyl Esters (Lovaza) 1 gm PO DAILY [facility] Last Admin: 08/11/17 11:05 Dose: 1 gm Oxycodone/Acetaminophen (Percocet 5/325 Mg Tab) 1 tab PO Q4 PRN PRN Reason: Pain, severe (8-10) Stop: 08/11/17 14:53 Last Admin: 08/11/17 08:32 Dose: 1 tab Rosuvastatin Calcium (Crestor) 20 mg PO HS [facility] Last Admin: 08/10/17 21:33 Dose: 20 mg Trazodone HCl (Desyrel) 25 mg PO HS [facility] Stop: 08/11/17 22:01 - Labs Labs: 08/11/17 07:55 08/11/17 07:55 PT 11.4 SECONDS (9.7-12.2) 08/08/17 10:30 INR 1.0 08/08/17 10:30 APTT 28 SECONDS (21-34) 08/08/17 10:30 Attending/Attestation - Attestation I have personally seen and examined this patient.: Yes I have fully participated in the care of the patient.: Yes I have reviewed all pertinent clinical information, including history, physical exam and plan: Yes Notes (Text): 08/11/17 13:57 Medical attending: Patient was seen and examined by me, agree with the above note by medical specialist. Patient is not in any acute distress or concern we saw her. She denied having chest pain, denied having shortness breath, denied having palpitations, denied abdominal pain. Since being here her lab work has been stable, she's had a chest x-ray that was stable as well and we have been any trouble for vital signs So she is medically cleared the procedure tomorrow and she is very eager for surgery tomorrow. Thank you very much, Luis Alberto Baker
[2017-08-11] MEDS: Vancomycin 750 MG in Dextrose 5% In Water 150 ML IVPB SCH ×2 (12:13→21:38)
--- NOTE | 2017-08-11 12:20 | CP.PCM.PN ---
Subjective - Date & Time of Evaluation Date of Evaluation: 08/11/17 Time of Evaluation: 12:17 - Subjective Subjective: Pt is scheduled for right partial 1st and 2nd ray amp on Tuesday08/12/2017. Pt understands that this is a limb salvage procedure and that if healing is compromised future surgery and/or limbloss is possible. NPO orders are in. Objective - Vital Signs/Intake and Output Vital Signs (last 24 hours): Temp Pulse Resp BP Pulse Ox 98.3 F 85 20 145/73 96 08/11/17 07:42 08/11/17 07:42 08/11/17 07:42 08/11/17 07:42 08/11/17 07:42 Intake and Output: 08/11/17 08/11/17 06:59 18:59 Intake Total 900 600 Balance 900 600 - Medications Medications: Current Medications Amlodipine Besylate (Norvasc) 5 mg PO DAILY [facility] Last Admin: 08/11/17 11:05 Dose: 5 mg Dextrose (Dextrose 50% Inj) 0 ml IV STAT PRN; Protocol PRN Reason: Hypoglycemia Protocol Dextrose (Glutose 15) 0 gm PO ONCE PRN; Protocol PRN Reason: Hypoglycemia Protocol Famotidine (Pepcid) 20 mg PO DAILY PRN PRN Reason: Heartburn Last Admin: 08/11/17 11:05 Dose: 20 mg Gabapentin (Neurontin) 600 mg PO BID [facility] Glucagon (Glucagen Diagnostic Kit) 0 mg IM STAT PRN; Protocol PRN Reason: Hypoglycemia Protocol Sodium Chloride (Sodium Chloride 0.9%) 1,000 mls @ 75 mls/hr IV .[id number] [facility] Last Admin: 08/11/17 11:05 Dose: Not Given Dextrose (Dextrose 5% In Water 1000 Ml) 1,000 mls @ 0 mls/hr IV .Q0M PRN; Protocol; Per Protocol PRN Reason: Hypoglycemia Protocol Vancomycin HCl 750 mg/ (Dextrose) 150 mls @ 125 mls/hr IVPB Q12 [facility] Last Admin: 08/11/17 12:13 Dose: 125 mls/hr Insulin Human Regular (Novolin R) 0 unit SC ACHS [facility] PRN Reason: Protocol Last Admin: 08/11/17 12:13 Dose: 3 unit Ketorolac Tromethamine (Toradol) 30 mg IVP Q6 PRN PRN Reason: Pain, moderate (4-7) Losartan Potassium (Cozaar) 25 mg PO DAILY [facility] Last Admin: 08/11/17 11:04 Dose: 25 mg Metoprolol Tartrate (Lopressor) 50 mg PO DAILY [facility] Last Admin: 08/11/17 11:05 Dose: 50 mg Buqft-0-Vcuo Ethyl Esters (Lovaza) 1 gm PO DAILY [facility] Last Admin: 08/11/17 11:05 Dose: 1 gm Oxycodone/Acetaminophen (Percocet 5/325 Mg Tab) 1 tab PO Q4 PRN PRN Reason: Pain, severe (8-10) Stop: 08/11/17 14:53 Last Admin: 08/11/17 08:32 Dose: 1 tab Rosuvastatin Calcium (Crestor) 20 mg PO [facility] Last Admin: 08/10/17 21:33 Dose: 20 mg Trazodone HCl (Desyrel) 25 mg PO [facility] Stop: 08/11/17 22:01 - Labs Labs: 08/11/17 07:55 08/11/17 07:55 PT 11.4 SECONDS (9.7-12.2) 08/08/17 10:30 INR 1.0 08/08/17 10:30 APTT 28 SECONDS (21-34) 08/08/17 10:30
--- NOTE | 2017-08-11 18:32 | CP.PCM.PN ---
Subjective - Date & Time of Evaluation Date of Evaluation: 08/11/17 Time of Evaluation: 09:00 - Subjective Subjective: Pt is scheduled for right partial 1st and 2nd ray amp on Tuesday08/12/2017. Pt understands that this is a limb salvage procedure and that if healing is compromised future surgery and/or limbloss is possible. Pt also has left heel ulcer and CTA shows disease left side as well Objective - Vital Signs/Intake and Output Vital Signs (last 24 hours): Temp Pulse Resp BP Pulse Ox 98.5 F 58 L 20 150/73 96 08/11/17 16:09 08/11/17 16:09 08/11/17 16:09 08/11/17 16:09 08/11/17 16:09 Intake and Output: 08/11/17 08/11/17 06:59 18:59 Intake Total 900 1625 Balance 900 1625 - Medications Medications: Current Medications Amlodipine Besylate (Norvasc) 5 mg PO DAILY [facility] Last Admin: 08/11/17 11:05 Dose: 5 mg Dextrose (Dextrose 50% Inj) 0 ml IV STAT PRN; Protocol PRN Reason: Hypoglycemia Protocol Dextrose (Glutose 15) 0 gm PO ONCE PRN; Protocol PRN Reason: Hypoglycemia Protocol Famotidine (Pepcid) 20 mg PO DAILY PRN PRN Reason: Heartburn Last Admin: 08/11/17 11:05 Dose: 20 mg Gabapentin (Neurontin) 600 mg PO BID [facility] Last Admin: 08/11/17 17:46 Dose: 600 mg Glucagon (Glucagen Diagnostic Kit) 0 mg IM STAT PRN; Protocol PRN Reason: Hypoglycemia Protocol Sodium Chloride (Sodium Chloride 0.9%) 1,000 mls @ 75 mls/hr IV .[id number] [facility] Last Admin: 08/11/17 11:05 Dose: Not Given Dextrose (Dextrose 5% In Water 1000 Ml) 1,000 mls @ 0 mls/hr IV .Q0M PRN; Protocol; Per Protocol PRN Reason: Hypoglycemia Protocol Vancomycin HCl 750 mg/ (Dextrose) 150 mls @ 125 mls/hr IVPB Q12 [facility] Last Admin: 08/11/17 12:13 Dose: 125 mls/hr Insulin Human Regular (Novolin R) 0 unit SC ACHS [facility] PRN Reason: Protocol Last Admin: 08/11/17 16:30 Dose: 4 unit Ketorolac Tromethamine (Toradol) 30 mg IVP Q6 PRN PRN Reason: Pain, moderate (4-7) Losartan Potassium (Cozaar) 25 mg PO DAILY [facility] Last Admin: 08/11/17 11:04 Dose: 25 mg Metoprolol Tartrate (Lopressor) 50 mg PO DAILY [facility] Last Admin: 08/11/17 11:05 Dose: 50 mg Alkhr-6-Iyeg Ethyl Esters (Lovaza) 1 gm PO DAILY [facility] Last Admin: 08/11/17 11:05 Dose: 1 gm Rosuvastatin Calcium (Crestor) 20 mg PO HS [facility] Last Admin: 08/10/17 21:33 Dose: 20 mg Trazodone HCl (Desyrel) 25 mg PO [facility] Stop: 08/11/17 22:01 - Labs Labs: 08/11/17 07:55 08/11/17 07:55 PT 11.4 SECONDS (9.7-12.2) 08/08/17 10:30 INR 1.0 08/08/17 10:30 APTT 28 SECONDS (21-34) 08/08/17 10:30 - Constitutional Appears: Non-toxic, Chronically Ill - Head Exam Head Exam: NORMOCEPHALIC - Eye Exam Eye Exam: PERRL - ENT Exam ENT Exam: Mucous Membranes Dry - Neck Exam Neck Exam: absent: Lymphadenopathy - Respiratory Exam Respiratory Exam: Decreased Breath Sounds - Cardiovascular Exam Cardiovascular Exam: REGULAR RHYTHM - GI/Abdominal Exam GI & Abdominal Exam: Distended, Soft - Rectal Exam Rectal Exam: Deferred - Exam Exam: NORMAL INSPECTION - Extremities Exam Extremities Exam: Pedal Edema, Tenderness Additional comments: gangrene right 1st and 2nd toes left heel ulcer/ dry painful skin Assessment and Plan (1) Arthritis Status: Acute (2) CKD (chronic kidney disease) stage 2, GFR 60-89 ml/min Status: Acute (3) COPD (chronic obstructive pulmonary disease) Status: Acute (4) Cellulitis Status: Acute (5) History of coronary artery disease Status: Acute (6) CAD (coronary artery disease) Status: Chronic (7) Chronic kidney disease, stage 3 Status: Chronic (8) Diabetes mellitus Status: Chronic (9) HTN (hypertension) Status: Chronic (10) PVD (peripheral vascular disease) Status: Chronic - Assessment and Plan (Free Text) Assessment: Pt is scheduled for right partial 1st and 2nd ray amp on Tuesday08/12/2017. Pt understands that this is a limb salvage procedure and that if healing is compromised future surgery and/or limbloss is possible. Pt also has left heel ulcer and CTA shows disease left side as well
[2017-08-11] MEDS ORDERED: Oxycodone/Acetaminophen 5/325 mg Tab PO STA (21:13)
[2017-08-11] MEDS ORDERED: traZODone 25 mg Tab PO SCH (22:00)
[2017-08-12] MEDS: (Novolin R) Insulin Human Regular 100 units/ml vial SC SCH ×4 (07:59→22:21)
[2017-08-12] MEDS: Omega-3-Acid Ethyl Esters 1 GM Cap PO SCH (11:05)
--- NOTE | 2017-08-12 11:06 | CP.PCM.PN ---
<ReyLatisha - Last Filed: 08/12/17 12:39> Subjective - Date & Time of Evaluation Date of Evaluation: 08/12/17 Time of Evaluation: 07:00 - Subjective Subjective: Patient seen and examined at bedside. Patient resting comfortably in chair. No acute events overnight. Patient states her pain in both her feet are much better today, and she slept well throughout the night. Patient has no other complaints at this time. She denies headache, chest pain, n/v/d, abdominal pain , and leg swelling. Objective - Vital Signs/Intake and Output Vital Signs (last 24 hours): Temp Pulse Resp BP Pulse Ox 97.8 F 68 20 118/62 97 08/12/17 08:01 08/12/17 08:01 08/12/17 08:01 08/12/17 08:01 08/12/17 08:01 - Medications Medications: Current Medications Amlodipine Besylate (Norvasc) 5 mg PO DAILY [facility] Last Admin: 08/11/17 11:05 Dose: 5 mg Dextrose (Dextrose 50% Inj) 0 ml IV STAT PRN; Protocol PRN Reason: Hypoglycemia Protocol Dextrose (Glutose 15) 0 gm PO ONCE PRN; Protocol PRN Reason: Hypoglycemia Protocol Famotidine (Pepcid) 20 mg PO DAILY PRN PRN Reason: Heartburn Last Admin: 08/11/17 11:05 Dose: 20 mg Gabapentin (Neurontin) 600 mg PO BID [facility] Last Admin: 08/11/17 17:46 Dose: 600 mg Glucagon (Glucagen Diagnostic Kit) 0 mg IM STAT PRN; Protocol PRN Reason: Hypoglycemia Protocol Sodium Chloride (Sodium Chloride 0.9%) 1,000 mls @ 75 mls/hr IV .[id number] [facility] Last Admin: 08/11/17 23:00 Dose: Not Given Dextrose (Dextrose 5% In Water 1000 Ml) 1,000 mls @ 0 mls/hr IV .Q0M PRN; Protocol; Per Protocol PRN Reason: Hypoglycemia Protocol Vancomycin HCl 750 mg/ (Dextrose) 150 mls @ 125 mls/hr IVPB Q12 [facility] Last Admin: 08/11/17 21:38 Dose: 125 mls/hr Insulin Human Regular (Novolin R) 0 unit SC ACHS [facility] PRN Reason: Protocol Last Admin: 08/12/17 07:59 Dose: Not Given Ketorolac Tromethamine (Toradol) 30 mg IVP Q6 PRN PRN Reason: Pain, moderate (4-7) Last Admin: 08/11/17 19:55 Dose: 30 mg Losartan Potassium (Cozaar) 25 mg PO DAILY [facility] Last Admin: 08/11/17 11:04 Dose: 25 mg Metoprolol Tartrate (Lopressor) 50 mg PO DAILY [facility] Last Admin: 08/11/17 11:05 Dose: 50 mg Uforo-1-Hkyd Ethyl Esters (Lovaza) 1 gm PO DAILY [facility] Last Admin: 08/11/17 11:05 Dose: 1 gm Rosuvastatin Calcium (Crestor) 20 mg PO [facility] Last Admin: 08/11/17 21:59 Dose: 20 mg Trazodone HCl (Desyrel) 25 mg PO [facility] Stop: 08/12/17 22:01 - Labs Labs: 08/11/17 07:55 08/11/17 07:55 PT 11.4 SECONDS (9.7-12.2) 08/08/17 10:30 INR 1.0 08/08/17 10:30 APTT 28 SECONDS (21-34) 08/08/17 10:30 - Additional Findings Additional findings: - Constitutional Appears: Non-toxic, No Acute Distress - Head Exam Head Exam: ATRAUMATIC, NORMAL INSPECTION, NORMOCEPHALIC - Eye Exam Eye Exam: EOMI, Normal appearance, PERRL - ENT Exam ENT Exam: Mucous Membranes Moist - Respiratory Exam Respiratory Exam: Clear to Auscultation Bilateral, NORMAL BREATHING PATTERN. absent: Accessory Muscle Use, Rales, Rhonchi, Wheezes, Respiratory Distress - Cardiovascular Exam Cardiovascular Exam: RRR, +S1, +S2. absent: Bradycardia, Tachycardia, Diastolic murmur, Gallop, Rubs, Systolic Murmur - GI/Abdominal Exam GI & Abdominal Exam: Normal Bowel Sounds, Soft. absent: Distended, Tenderness - Extremities Exam Additional comments: Gangrenous 1st and 2nd digits of right foot Cracked skin wound on the bottom of the left foot that are exquisitely tender - Neurological Exam Neurological exam: Alert, Oriented x3 - Psychiatric Exam Psychiatric exam: Normal Affect, Normal Mood - Skin Skin Exam: Dry, Intact, Warm Assessment and Plan - Assessment and Plan (Free Text) Plan: Disposition: Patient awaiting amputation of 1st and 2nd digits scheduled for Today 08/12/17. Patient sleeping better with trazadone last night so will give another low dose of trazadone tonight. Midline inserted today. Gangrene of 1st and 2nd digits of right foot * Podiatry consulted, Dr. Rocha; recs appreciated * Plan for amputation of 1st and 2nd digits on Tuesday08/12/17 * Preop studies * hold eliquis, ASA, and DVT prophylaxis * Vascular surgery consulted, Dr. Nur; recs appreciated * Infectious disease consulted, Dr. Quintero; recs appreciated * Wound care * PT * Blood cultures negative x24H * Percocet PRN pain * Toradol 30 mg IV Q6 prn pain * Vancomycin 750 mg Q12H Imaging * Foot XR: no evidence of osteomyelitis, gas forming cellulitis appreciated [facility] * BUN/Cr: 30/1.3 * NS @ 75 cc/h * Hold Metformin History of PVD with b/l stents * Vascular surgery consulted, Dr. Nur; recs appreciated Imaging * Abd CTA pending DM * Accuchecks * ISS medium dose * hypoglycemic protocol * continue gabapentin 600 mg BID * hold metformin, januvia, and glipizide HTN * Continue home meds: * norvasc 5 mg daily * losartan 25 mg daily * lopressor 50 mg daily HLD * Crestor 20 mg HS * [place] 3 History of DVT * hold home eliquis for surgery PPX * GI: pepcid 20 mg daily * DVT: contraindicated at this time, preop <Luis Alberto Baker H - Last Filed: 08/12/17 12:49> Objective - Vital Signs/Intake and Output Vital Signs (last 24 hours): Temp Pulse Resp BP Pulse Ox 97.8 F 68 20 118/62 97 08/12/17 08:01 08/12/17 08:01 08/12/17 08:01 08/12/17 08:01 08/12/17 08:01 - Medications Medications: Current Medications Amlodipine Besylate (Norvasc) 5 mg PO DAILY [facility] Last Admin: 08/12/17 11:05 Dose: Not Given Dextrose (Dextrose 50% Inj) 0 ml IV STAT PRN; Protocol PRN Reason: Hypoglycemia Protocol Dextrose (Glutose 15) 0 gm PO ONCE PRN; Protocol PRN Reason: Hypoglycemia Protocol Famotidine (Pepcid) 20 mg PO DAILY PRN PRN Reason: Heartburn Last Admin: 08/11/17 11:05 Dose: 20 mg Gabapentin (Neurontin) 600 mg PO BID [facility] Last Admin: 08/12/17 11:05 Dose: Not Given Glucagon (Glucagen Diagnostic Kit) 0 mg IM STAT PRN; Protocol PRN Reason: Hypoglycemia Protocol Sodium Chloride (Sodium Chloride 0.9%) 1,000 mls @ 75 mls/hr IV .[id number] [facility] Last Admin: 08/12/17 12:35 Dose: Not Given Dextrose (Dextrose 5% In Water 1000 Ml) 1,000 mls @ 0 mls/hr IV .Q0M PRN; Protocol; Per Protocol PRN Reason: Hypoglycemia Protocol Vancomycin HCl 750 mg/ (Dextrose) 150 mls @ 125 mls/hr IVPB Q12 [facility] Last Admin: 08/12/17 11:53 Dose: 125 mls/hr Insulin Human Regular (Novolin R) 0 unit SC ACHS [facility] PRN Reason: Protocol Last Admin: 08/12/17 11:21 Dose: Not Given Ketorolac Tromethamine (Toradol) 30 mg IVP Q6 PRN PRN Reason: Pain, moderate (4-7) Last Admin: 08/11/17 19:55 Dose: 30 mg Losartan Potassium (Cozaar) 25 mg PO DAILY [facility] Last Admin: 08/12/17 11:05 Dose: Not Given Metoprolol Tartrate (Lopressor) 50 mg PO DAILY [facility] Last Admin: 08/12/17 11:05 Dose: Not Given Xgwzo-1-Zpoo Ethyl Esters (Lovaza) 1 gm PO DAILY [facility] Last Admin: 08/12/17 11:05 Dose: Not Given Rosuvastatin Calcium (Crestor) 20 mg PO HS [facility] Last Admin: 08/11/17 21:59 Dose: 20 mg Trazodone HCl (Desyrel) 25 mg PO HS [facility] Stop: 08/12/17 22:01 - Labs Labs: 08/12/17 11:19 08/12/17 11:19 PT 11.4 SECONDS (9.7-12.2) 08/08/17 10:30 INR 1.0 08/08/17 10:30 APTT 28 SECONDS (21-34) 08/08/17 10:30 Attending/Attestation - Attestation I have personally seen and examined this patient.: Yes I have fully participated in the care of the patient.: Yes I have reviewed all pertinent clinical information, including history, physical exam and plan: Yes Notes (Text): 08/12/17 12:43 Medical attending: Patient was seen and examined by me as well Agree with the above note by the resident The patient when we saw her had not yet gone to the OR. The patient reported that with the percocet as well as the toradol that the pain was controlled She also slept better with trazadone last night. Luis Alberto Baker
[2017-08-12 11:32] LABS: BASO % 0.7 % (0.0-2.0); EOS # 0.1 K/uL (0.0-0.7); EOS % 1.4 % (0.0-4.0); HEMOGLOBIN 10.2 g/dL (11.0-16.0); LYMPH # 1.2 K/uL (1.0-4.3); LYMPH % 18.1 % (20.0-40.0); MEAN CELL VOLUME 79.1 fL (81.0-99.0); MEAN CORPUSCULAR HEMOGLOBIN 26.5 pg (27.0-31.0); MEAN CORPUSCULAR HGB CONC 33.6 g/dL (33.0-37.0); MEAN PLATELET VOLUME 9.2 fL (7.2-11.7); MONO # 0.4 K/uL (0.0-0.8); MONO % 6.7 % (0.0-10.0); NEUT # 4.8 K/uL (1.8-7.0); NEUT % 73.1 % (50.0-75.0); RBC 3.83 Mil/uL (3.80-5.20); RED CELL DISTRIBUTION WIDTH 13.5 % (11.5-14.5); WHITE BLOOD COUNT 6.6 K/uL (4.8-10.8)
[2017-08-12 11:52] LABS: ALBUMIN 3.3 g/dL (3.5-5.0); ALT/SGPT 23 U/L (9-52); BLOOD UREA NITROGEN 13 mg/dL (7-17); CALCIUM 8.9 mg/dl (8.6-10.4); GFR AFRICAN-AMERICAN > 60; GFR NON-AFRICAN AMERICAN > 60
[2017-08-12] MEDS: Vancomycin 750 MG in Dextrose 5% In Water 150 ML IVPB SCH ×2 (11:53→22:13)
[2017-08-12] MEDS: Sodium Chloride 0.9% 1,000 ML IV SCH ×2 (12:35→22:15)
[2017-08-12] MEDS ORDERED: Bupivacaine HCl 0.5% PF (10 ml) Inj ONE (13:18)
[2017-08-12] MEDS ORDERED: Lidocaine 2% Inj (20ml) ONE (13:19)
[2017-08-12] MEDS ORDERED: Lactated Ringer's 1,000 ML IV ONE (13:25)
[2017-08-12] MEDS ORDERED: Midazolam 2 MG/2 ML VIAL ONE (13:29)
[2017-08-12] MEDS ORDERED: Propofol 10 mg/ml Inj (20 ML) ONE (13:29)
[2017-08-12] MEDS ORDERED: Oxycodone/Acetaminophen 5/325 mg Tab PO PRN (14:51)
--- NOTE | 2017-08-12 14:59 | PCM.SURG1 ---
Surgeon's Initial Post Op Note - Surgeon's Notes Surgeon: Dr. Nelson Rocha DPM Coremaker Bench: Dr. Pastora Hassan DPM PGY-1 Type of Anesthesia: IV Sedation, Local Anesthesia Administered By: Dr. Mekhi CONNELLY Pre-Operative Diagnosis: Right foor 1st and 2nd digit gangrene Operative Findings: See dictation. M: 2-0 vicryl, panrose drain, 3-0 prolene. I: 20 cc of 1:1 mixture of 2% lidocain plain: 0.5% marcain plain Post-Operative Diagnosis: Same Operation Performed: Partial 1st and 2nd ray amputation of the right foot Specimen/Specimens Removed: Right foot 1st and 2nd digit and partial metatarsal head with nonviable soft tissue Estimated Blood Loss: EBL {In ML}: 20 Blood Products Given: N/A Drains Used: No Drains Post-Op Condition: Good Date of Surgery/Procedure: 08/12/17 Time of Surgery/Procedure: 15:00
[2017-08-12] MEDS ORDERED: HYDROmorphone 0.5 mg/0.5 ml ISec IVP PRN (15:05)
--- NOTE | 2017-08-12 15:16 | CP.PCM.PN ---
Subjective - Date & Time of Evaluation Date of Evaluation: 08/12/17 Time of Evaluation: 10:09 - Subjective Subjective: Podiatry note for Dr. Rocha 67 y/o female was seen at bedside this morning for scheduled surgery of Right foot gangrenous digits of 1st and 2nd. Right foot remains open to air without dressing. She is doing well in bed, AAOx3, NAD overnight. Patient denies of any other pedal complaints. Pt denies of any recent F/N/V/C/SOB. Podiatry (Dr. Rocha) plans for surgical amputation of right 1st and 2nd rays today. Patient agrees with podiatry plan Objective - Vital Signs/Intake and Output Vital Signs (last 24 hours): Temp Pulse Resp BP Pulse Ox 97.8 F 68 20 118/62 97 08/12/17 08:01 08/12/17 12:30 08/12/17 08:01 08/12/17 12:30 08/12/17 12:30 - Medications Medications: Current Medications Acetaminophen (Tylenol 325mg Tab) 650 mg PO Q6 PRN PRN Reason: Pain, Mild (1-3) Amlodipine Besylate (Norvasc) 5 mg PO DAILY [facility] Last Admin: 08/12/17 11:05 Dose: Not Given Dextrose (Dextrose 50% Inj) 0 ml IV STAT PRN; Protocol PRN Reason: Hypoglycemia Protocol Dextrose (Glutose 15) 0 gm PO ONCE PRN; Protocol PRN Reason: Hypoglycemia Protocol Famotidine (Pepcid) 20 mg PO DAILY PRN PRN Reason: Heartburn Last Admin: 08/11/17 11:05 Dose: 20 mg Gabapentin (Neurontin) 600 mg PO BID [facility] Last Admin: 08/12/17 11:05 Dose: Not Given Glucagon (Glucagen Diagnostic Kit) 0 mg IM STAT PRN; Protocol PRN Reason: Hypoglycemia Protocol Hydromorphone HCl (Dilaudid) 0.5 mg IVP Q10M PRN PRN Reason: Pain, moderate (4-7) Stop: 08/12/17 17:06 Sodium Chloride (Sodium Chloride 0.9%) 1,000 mls @ 75 mls/hr IV .[id number] [facility] Last Admin: 08/12/17 12:35 Dose: Not Given Dextrose (Dextrose 5% In Water 1000 Ml) 1,000 mls @ 0 mls/hr IV .Q0M PRN; Protocol; Per Protocol PRN Reason: Hypoglycemia Protocol Vancomycin HCl 750 mg/ (Dextrose) 150 mls @ 125 mls/hr IVPB Q12 [facility] Last Admin: 08/12/17 11:53 Dose: 125 mls/hr Lactated Ringer's (Lactated Ringer's) 1,000 mls @ 150 mls/hr IV .Q6H40M [facility] Insulin Human Regular (Novolin R) 0 unit SC ACHS [facility] PRN Reason: Protocol Last Admin: 08/12/17 11:21 Dose: Not Given Ketorolac Tromethamine (Toradol) 30 mg IVP Q6 PRN PRN Reason: Pain, moderate (4-7) Last Admin: 08/11/17 19:55 Dose: 30 mg Losartan Potassium (Cozaar) 25 mg PO DAILY [facility] Last Admin: 08/12/17 11:05 Dose: Not Given Metoprolol Tartrate (Lopressor) 50 mg PO DAILY [facility] Last Admin: 08/12/17 11:05 Dose: Not Given Scmnj-7-Lblv Ethyl Esters (Lovaza) 1 gm PO DAILY [facility] Last Admin: 08/12/17 11:05 Dose: Not Given Ondansetron HCl (Zofran Inj) 4 mg IVP ONCE PRN PRN Reason: Nausea/Vomiting Stop: 08/12/17 17:06 Oxycodone/Acetaminophen (Percocet 5/325 Mg Tab) 1 tab PO Q4H PRN PRN Reason: Pain, moderate (4-7) Stop: 08/15/17 14:52 Oxycodone/Acetaminophen (Percocet 5/325 Mg Tab) 2 tab PO Q4H PRN PRN Reason: Pain, severe (8-10) Stop: 08/15/17 14:52 Rosuvastatin Calcium (Crestor) 20 mg PO HS [facility] Last Admin: 08/11/17 21:59 Dose: 20 mg Trazodone HCl (Desyrel) 25 mg PO HS ONE Stop: 08/12/17 22:01 - Labs Labs: 08/12/17 11:19 08/12/17 11:19 PT 11.4 SECONDS (9.7-12.2) 08/08/17 10:30 INR 1.0 08/08/17 10:30 APTT 28 SECONDS (21-34) 08/08/17 10:30 - Constitutional Appears: Well, Non-toxic, No Acute Distress - Extremities Exam Additional comments: Bilateral Lower Extremity exam: DERM: No significant changes RIGHT: Right 1st and 2nd digit gangrenous with dry skin demarcation from distal tip proximally up to level of MTPJ, no fluctuance or probe to bone noted. no active drainage, no malodor, resolving erythema from yesterday noted on the medial ankle and distal medial leg LEFT: Erythema noted to Left foot 3rd 4th 5th digits extending proximally along the lateral aspect of left foot. No oipen wound noted. No drainage. No mal-odor , no probe to bone NEURO: Protective sensation grossly intact bilaterally VASC: DP/PT pulses are faintly palpable 1/4, YARD BRAKEMAN: < 3 sec to all digits, TG: warm to cool, no pitting or non-pitting edema was observed ORTHO: no pain or tenderness on the palpation of the medial ankle - Neurological Exam Neurological Exam: Alert, Awake, Oriented x3 - Psychiatric Exam Psychiatric exam: Normal Affect, Normal Mood Assessment and Plan - Assessment and Plan (Free Text) Assessment: 67 yo female patient presenting with Right foot gangrene Plan: Patient was seen evaluated at bedside discuddedd in detail with Dr. Rocha labs and vitals reviewed Right foot open to air without any dressing Multipodus boots ordered for Left foot Medical clearance (for today's podiatric surgery) by family medicine in chart, note appreciated Patient is scheduled for RIGHT foot 1st ray and 2nd digit amputation with Dr. Rocha NPO status confirmed. Patient agrees with podiatry plan No guarantees made regarding the outcome of surgery Written consent in chart Patient will be non-weight bearing to Right foot after the surgery Podiatry will continue to follow in house
[2017-08-12] MEDS: Lactated Ringer's 1,000 ML IV SCH ×2 (15:45→22:21)
--- NOTE | 2017-08-12 16:30 | RAD ---
PROCEDURE: Right Foot Radiographs. HISTORY: s/p right foot surgery COMPARISON: 08/09/2017 FINDINGS: BONES: Status post amputation 1st digit mid metatarsal and amputation 2nd digit at the distal 2nd metatarsal diaphysis. No acute fracture. Remaining osseous structures appear intact. JOINTS: Normal. SOFT TISSUES: Vascular calcification noted. OTHER FINDINGS: None. IMPRESSION: Amputation 1st and 2nd digits at the level of the metatarsal.
--- NOTE | 2017-08-12 18:30 | CP.PCM.PN ---
Subjective - Date & Time of Evaluation Date of Evaluation: 08/12/17 Time of Evaluation: 08:00 - Subjective Subjective: comfortable s/p amp4th and fifth digits right denies fever Objective - Vital Signs/Intake and Output Vital Signs (last 24 hours): Temp Pulse Resp BP Pulse Ox 97.8 F 56 L 20 163/70 H 98 08/12/17 16:36 08/12/17 16:36 08/12/17 16:36 08/12/17 16:36 08/12/17 16:36 Intake and Output: 08/12/17 08/12/17 06:59 18:59 Intake Total 150 Balance 150 - Medications Medications: Current Medications Acetaminophen (Tylenol 325mg Tab) 650 mg PO Q6 PRN PRN Reason: Pain, Mild (1-3) Amlodipine Besylate (Norvasc) 5 mg PO DAILY [facility] Last Admin: 08/12/17 11:05 Dose: Not Given Dextrose (Dextrose 50% Inj) 0 ml IV STAT PRN; Protocol PRN Reason: Hypoglycemia Protocol Dextrose (Glutose 15) 0 gm PO ONCE PRN; Protocol PRN Reason: Hypoglycemia Protocol Famotidine (Pepcid) 20 mg PO DAILY PRN PRN Reason: Heartburn Last Admin: 08/11/17 11:05 Dose: 20 mg Gabapentin (Neurontin) 600 mg PO BID [facility] Last Admin: 08/12/17 17:37 Dose: 600 mg Glucagon (Glucagen Diagnostic Kit) 0 mg IM STAT PRN; Protocol PRN Reason: Hypoglycemia Protocol Sodium Chloride (Sodium Chloride 0.9%) 1,000 mls @ 75 mls/hr IV .[id number] [facility] Last Admin: 08/12/17 12:35 Dose: Not Given Dextrose (Dextrose 5% In Water 1000 Ml) 1,000 mls @ 0 mls/hr IV .Q0M PRN; Protocol; Per Protocol PRN Reason: Hypoglycemia Protocol Vancomycin HCl 750 mg/ (Dextrose) 150 mls @ 125 mls/hr IVPB Q12 [facility] Last Admin: 08/12/17 11:53 Dose: 125 mls/hr Lactated Ringer's (Lactated Ringer's) 1,000 mls @ 150 mls/hr IV .Q6H40M [facility] Insulin Human Regular (Novolin R) 0 unit SC ACHS [facility] PRN Reason: Protocol Last Admin: 08/12/17 17:25 Dose: 2 unit Ketorolac Tromethamine (Toradol) 30 mg IVP Q6 PRN PRN Reason: Pain, moderate (4-7) Last Admin: 08/11/17 19:55 Dose: 30 mg Losartan Potassium (Cozaar) 25 mg PO DAILY [facility] Last Admin: 08/12/17 11:05 Dose: Not Given Metoprolol Tartrate (Lopressor) 50 mg PO DAILY [facility] Last Admin: 08/12/17 11:05 Dose: Not Given Waukp-9-Exwz Ethyl Esters (Lovaza) 1 gm PO DAILY [facility] Last Admin: 08/12/17 11:05 Dose: Not Given Oxycodone/Acetaminophen (Percocet 5/325 Mg Tab) 2 tab PO Q4H PRN PRN Reason: Pain, severe (8-10) Stop: 08/15/17 14:52 Rosuvastatin Calcium (Crestor) 20 mg PO HS [facility] Last Admin: 08/11/17 21:59 Dose: 20 mg Trazodone HCl (Desyrel) 25 mg PO HS ONE Stop: 08/12/17 22:01 - Labs Labs: 08/12/17 11:19 08/12/17 11:19 PT 11.4 SECONDS (9.7-12.2) 08/08/17 10:30 INR 1.0 08/08/17 10:30 APTT 28 SECONDS (21-34) 08/08/17 10:30 - Constitutional Appears: Non-toxic, Chronically Ill - Head Exam Head Exam: NORMOCEPHALIC - Eye Exam Eye Exam: absent: Scleral icterus - ENT Exam ENT Exam: Mucous Membranes Dry - Neck Exam Neck Exam: absent: Lymphadenopathy - Respiratory Exam Respiratory Exam: Decreased Breath Sounds - Cardiovascular Exam Cardiovascular Exam: REGULAR RHYTHM - GI/Abdominal Exam GI & Abdominal Exam: Distended, Soft - Rectal Exam Rectal Exam: Deferred Assessment and Plan (1) Arthritis Status: Acute (2) CKD (chronic kidney disease) stage 2, GFR 60-89 ml/min Status: Acute (3) COPD (chronic obstructive pulmonary disease) Status: Acute (4) Cellulitis Status: Acute (5) History of coronary artery disease Status: Acute (6) CAD (coronary artery disease) Status: Chronic (7) Chronic kidney disease, stage 3 Status: Chronic (8) Diabetes mellitus Status: Chronic (9) HTN (hypertension) Status: Chronic (10) PVD (peripheral vascular disease) Status: Chronic
[2017-08-12] MEDS: Oxycodone/Acetaminophen 5/325 mg Tab PO PRN (20:06)
[2017-08-12] MEDS ORDERED: traZODone 25 mg Tab PO ONE (22:00)
[2017-08-13] MEDS: Sodium Chloride 0.9% 1,000 ML IV SCH (01:40)
[2017-08-13] MEDS: Lactated Ringer's 1,000 ML IV SCH (04:45)
[2017-08-13] MEDS: Oxycodone/Acetaminophen 5/325 mg Tab PO PRN ×3 (05:56→18:35)
--- NOTE | 2017-08-13 07:45 | CP.PCM.PN ---
<Onel Worthington - Last Filed: 08/13/17 07:42> Subjective - Date & Time of Evaluation Date of Evaluation: 08/13/17 Time of Evaluation: 07:42 - Subjective Subjective: PGY1 Medicine Note for Dr. Baker Patient seen and examined at bedside this morning. No acute events overnight. Patient is resting comfortably in bed eating breakfast. Patient states her pain is well controlled and she was able to sleep throughout the night. No complaints at this time. Objective - Vital Signs/Intake and Output Vital Signs (last 24 hours): Temp Pulse Resp BP Pulse Ox 98.3 F 80 20 115/60 95 08/13/17 07:36 08/13/17 07:36 08/13/17 07:36 08/13/17 07:36 08/13/17 07:36 Intake and Output: 08/13/17 08/13/17 06:59 18:59 Intake Total 700 Balance 700 - Medications Medications: Current Medications Acetaminophen (Tylenol 325mg Tab) 650 mg PO Q6 PRN PRN Reason: Pain, Mild (1-3) Amlodipine Besylate (Norvasc) 5 mg PO DAILY [facility] Last Admin: 08/12/17 11:05 Dose: Not Given Dextrose (Dextrose 50% Inj) 0 ml IV STAT PRN; Protocol PRN Reason: Hypoglycemia Protocol Dextrose (Glutose 15) 0 gm PO ONCE PRN; Protocol PRN Reason: Hypoglycemia Protocol Famotidine (Pepcid) 20 mg PO DAILY PRN PRN Reason: Heartburn Last Admin: 08/11/17 11:05 Dose: 20 mg Gabapentin (Neurontin) 600 mg PO BID [facility] Last Admin: 08/12/17 17:37 Dose: 600 mg Glucagon (Glucagen Diagnostic Kit) 0 mg IM STAT PRN; Protocol PRN Reason: Hypoglycemia Protocol Sodium Chloride (Sodium Chloride 0.9%) 1,000 mls @ 75 mls/hr IV .[id number] [facility] Last Admin: 08/13/17 01:40 Dose: Not Given Dextrose (Dextrose 5% In Water 1000 Ml) 1,000 mls @ 0 mls/hr IV .Q0M PRN; Protocol; Per Protocol PRN Reason: Hypoglycemia Protocol Vancomycin HCl 750 mg/ (Dextrose) 150 mls @ 125 mls/hr IVPB Q12 [facility] Last Admin: 08/12/17 22:13 Dose: 125 mls/hr Lactated Ringer's (Lactated Ringer's) 1,000 mls @ 150 mls/hr IV .Q6H40M [facility] Last Admin: 08/13/17 04:45 Dose: Not Given Insulin Human Regular (Novolin R) 0 unit SC ACHS [facility] PRN Reason: Protocol Last Admin: 08/12/17 22:21 Dose: Not Given Ketorolac Tromethamine (Toradol) 30 mg IVP Q6 PRN PRN Reason: Pain, moderate (4-7) Last Admin: 08/12/17 20:05 Dose: 30 mg Losartan Potassium (Cozaar) 25 mg PO DAILY [facility] Last Admin: 08/12/17 11:05 Dose: Not Given Metoprolol Tartrate (Lopressor) 50 mg PO DAILY [facility] Last Admin: 08/12/17 11:05 Dose: Not Given Nantm-2-Vzkm Ethyl Esters (Lovaza) 1 gm PO DAILY [facility] Last Admin: 08/12/17 11:05 Dose: Not Given Oxycodone/Acetaminophen (Percocet 5/325 Mg Tab) 2 tab PO Q4H PRN PRN Reason: Pain, severe (8-10) Stop: 08/15/17 14:52 Last Admin: 08/13/17 05:56 Dose: 2 tab Rosuvastatin Calcium (Crestor) 20 mg PO HS [facility] Last Admin: 08/12/17 22:13 Dose: 20 mg - Labs Labs: 08/12/17 11:19 08/12/17 11:19 PT 11.4 SECONDS (9.7-12.2) 08/08/17 10:30 INR 1.0 08/08/17 10:30 APTT 28 SECONDS (21-34) 08/08/17 10:30 - Constitutional Appears: Non-toxic, No Acute Distress - Head Exam Head Exam: ATRAUMATIC, NORMOCEPHALIC - Eye Exam Eye Exam: EOMI, Normal appearance - ENT Exam ENT Exam: Mucous Membranes Moist - Respiratory Exam Respiratory Exam: Clear to Ausculation Bilateral, NORMAL BREATHING PATTERN. absent: Accessory Muscle Use, Rales, Rhonchi, Wheezes, Respiratory Distress - Cardiovascular Exam Cardiovascular Exam: REGULAR RHYTHM, +S1, +S2 - GI/Abdominal Exam GI & Abdominal Exam: Soft, Normal Bowel Sounds. absent: Distended, Firm, Guarding, Rigid, Tenderness - Extremities Exam Extremities Exam: absent: Calf Tenderness Additional comments: s/p amputation of 1st and 2nd digits on right foot. dressing c/d/i, dried blood on bed sheets. - Neurological Exam Neurological Exam: Alert, Awake, Oriented x3 - Psychiatric Exam Psychiatric exam: Normal Affect, Normal Mood - Skin Skin Exam: Dry, Warm Assessment and Plan - Assessment and Plan (Free Text) Plan: Gangrene of 1st and 2nd digits of right foot * Podiatry consulted, Dr. Rocha; recs appreciated * s/p amputation of 1st and 2nd digits on right foot, POD#1 * hold eliquis, ASA, and DVT prophylaxis * f/u podiatry recs * Vascular surgery consulted, Dr. Nur; recs appreciated * Infectious disease consulted, Dr. Quintero; recs appreciated * Wound care * PT * Blood cultures negative x2 @4 days * Percocet PRN pain * Toradol 30 mg IV Q6 prn pain * Vancomycin 750 mg Q12H Imaging * Foot XR: no evidence of osteomyelitis, gas forming cellulitis appreciated MERLINE * BUN/Cr: 30/1.3 * NS @ 75 cc/h * Hold Metformin History of PVD with b/l stents * Vascular surgery consulted, Dr. Nur; recs appreciated Imaging * Abd CTA 3 - 1. The abdominal is mild calcific plaque and a focal ulcerative plaque in the distal aorta. 2. There is moderate stenosis of both right and left common iliac artery and external iliac arteries. * RIGHT LOWER EXTREMITY CT ANGIOGRAM: 1. Mild stenosis of the common femoral artery. 2. Previously stented SFA is patent. 3. Popliteal artery is unremarkable. 4. Anterior tibial artery is normal. The tibioperoneal artery is heavily calcified which limits its evaluation but is believed to be patent. The peroneal and posterior tibial artery patent. * LEFT LOWER EXTREMITY CT ANGIOGRAM: 1. Moderate stenosis of the common femoral artery. Profunda femoral artery is unremarkable. 2. Previously stented SFA is occluded. 3. Popliteal artery is severely stenotic. 4. Anterior tibial artery, posterior tibial artery, and peroneal artery are patent. DM * Accuchecks * ISS medium dose * hypoglycemic protocol * continue gabapentin 600 mg BID * hold metformin, januvia, and glipizide HTN * Continue home meds: * norvasc 5 mg daily * losartan 25 mg daily * lopressor 50 mg daily HLD * Crestor 20 mg HS * Preemption 3 History of DVT * hold home eliquis for surgery - will await surgery recs PPX * GI: pepcid 20 mg daily * DVT: will await recs from podiatry Will discuss case with Dr. Olivia Sykes Ander PGY1 <Luis Alberto Baker H - Last Filed: 08/13/17 10:34> Objective - Vital Signs/Intake and Output Vital Signs (last 24 hours): Temp Pulse Resp BP Pulse Ox 98.3 F 80 20 156/74 H 95 08/13/17 07:36 08/13/17 07:36 08/13/17 07:36 08/13/17 10:14 08/13/17 07:36 Intake and Output: 08/13/17 08/13/17 06:59 18:59 Intake Total 700 720 Balance 700 720 - Medications Medications: Current Medications Acetaminophen (Tylenol 325mg Tab) 650 mg PO Q6 PRN PRN Reason: Pain, Mild (1-3) Amlodipine Besylate (Norvasc) 5 mg PO DAILY [facility] Last Admin: 08/13/17 09:46 Dose: 5 mg Dextrose (Dextrose 50% Inj) 0 ml IV STAT PRN; Protocol PRN Reason: Hypoglycemia Protocol Dextrose (Glutose 15) 0 gm PO ONCE PRN; Protocol PRN Reason: Hypoglycemia Protocol Famotidine (Pepcid) 20 mg PO DAILY PRN PRN Reason: Heartburn Last Admin: 08/13/17 09:45 Dose: 20 mg Gabapentin (Neurontin) 600 mg PO BID [facility] Last Admin: 08/13/17 09:46 Dose: 600 mg Glucagon (Glucagen Diagnostic Kit) 0 mg IM STAT PRN; Protocol PRN Reason: Hypoglycemia Protocol Sodium Chloride (Sodium Chloride 0.9%) 1,000 mls @ 75 mls/hr IV .[id number] [facility] Last Admin: 08/13/17 01:40 Dose: Not Given Dextrose (Dextrose 5% In Water 1000 Ml) 1,000 mls @ 0 mls/hr IV .Q0M PRN; Protocol; Per Protocol PRN Reason: Hypoglycemia Protocol Vancomycin HCl 750 mg/ (Dextrose) 150 mls @ 125 mls/hr IVPB Q12 [facility] Last Admin: 08/13/17 09:45 Dose: 125 mls/hr Lactated Ringer's (Lactated Ringer's) 1,000 mls @ 150 mls/hr IV .Q6H40M [facility] Last Admin: 08/13/17 04:45 Dose: Not Given Insulin Human Regular (Novolin R) 0 unit SC ACHS [facility] PRN Reason: Protocol Last Admin: 08/13/17 08:13 Dose: 4 unit Ketorolac Tromethamine (Toradol) 30 mg IVP Q6 PRN PRN Reason: Pain, moderate (4-7) Last Admin: 08/12/17 20:05 Dose: 30 mg Losartan Potassium (Cozaar) 25 mg PO DAILY [facility] Last Admin: 08/13/17 09:46 Dose: 25 mg Metoprolol Tartrate (Lopressor) 50 mg PO DAILY [facility] Last Admin: 08/13/17 09:46 Dose: 50 mg Anwhp-4-Bumb Ethyl Esters (Lovaza) 1 gm PO DAILY [facility] Last Admin: 08/13/17 09:45 Dose: 1 gm Oxycodone/Acetaminophen (Percocet 5/325 Mg Tab) 2 tab PO Q4H PRN PRN Reason: Pain, severe (8-10) Stop: 08/15/17 14:52 Last Admin: 08/13/17 10:12 Dose: 2 tab Rosuvastatin Calcium (Crestor) 20 mg PO HS [facility] Last Admin: 08/12/17 22:13 Dose: 20 mg - Labs Labs: 08/13/17 08:18 08/13/17 08:18 PT 11.4 SECONDS (9.7-12.2) 08/08/17 10:30 INR 1.0 08/08/17 10:30 APTT 28 SECONDS (21-34) 08/08/17 10:30 Attending/Attestation - Attestation I have personally seen and examined this patient.: Yes I have fully participated in the care of the patient.: Yes I have reviewed all pertinent clinical information, including history, physical exam and plan: Yes Notes (Text): 08/13/17 10:32 Medical attending: Patient was seen and examined by me She is S/P amputation of the 1st and 2nd digits of her right foot. Pain is controlled at this time. Family member present and patient was ok with this. The family member had a lot of questions and I answered these At this time patient needs PT as well as any other interventions per surgery thank you Luis Alberto Baker
[2017-08-13] MEDS: (Novolin R) Insulin Human Regular 100 units/ml vial SC SCH ×4 (08:13→21:59)
[2017-08-13 08:24] LABS: BASO % 0.5 % (0.0-2.0); EOS # 0.1 K/uL (0.0-0.7); EOS % 1.1 % (0.0-4.0); HEMOGLOBIN 8.8 g/dL (11.0-16.0); LYMPH # 0.9 K/uL (1.0-4.3); LYMPH % 12.7 % (20.0-40.0); MEAN CELL VOLUME 78.2 fL (81.0-99.0); MEAN CORPUSCULAR HEMOGLOBIN 26.7 pg (27.0-31.0); MEAN CORPUSCULAR HGB CONC 34.1 g/dL (33.0-37.0); MONO # 0.5 K/uL (0.0-0.8); MONO % 7.8 % (0.0-10.0); NEUT # 5.3 K/uL (1.8-7.0); NEUT % 77.9 % (50.0-75.0); RBC 3.28 Mil/uL (3.80-5.20); RED CELL DISTRIBUTION WIDTH 13.3 % (11.5-14.5); WHITE BLOOD COUNT 6.8 K/uL (4.8-10.8)
[2017-08-13 08:45] LABS: ALBUMIN 2.8 g/dL (3.5-5.0); ALT/SGPT 23 U/L (9-52); AST/SGOT 11 U/L (14-36); BLOOD UREA NITROGEN 13 mg/dL (7-17); CALCIUM 8.4 mg/dl (8.6-10.4); GFR AFRICAN-AMERICAN > 60; GFR NON-AFRICAN AMERICAN > 60
[2017-08-13] MEDS: Vancomycin 750 MG in Dextrose 5% In Water 150 ML IVPB SCH ×2 (09:45→21:36)
[2017-08-13] MEDS: Omega-3-Acid Ethyl Esters 1 GM Cap PO SCH (09:45)
--- NOTE | 2017-08-13 10:06 | OP ---
PROCEDURE DATE: 08/12/2017 AGE: 67. SEX: Female. PREOPERATIVE DIAGNOSIS: Right foot hallux and second digit gangrene with possible bone infection. POSTOPERATIVE DIAGNOSIS: Right foot hallux and second digit gangrene with possible bone infection. PROCEDURE: Right foot partial first and second ray resection. SURGEON: Nelson Rocha DPM MORTGAGE PROCESSOR: Pastora Hassan DPM, PGY1. ANESTHESIOLOGIST: Dr. Gaming. TYPE OF ANESTHESIA: IV sedation with local. INDICATIONS: The patient is a 67-year-old female with the above diagnosis. The patient has exhausted all conservative treatment at this time and now requires surgical intervention. The patient signed the consent after careful explanation of risks, benefits, complications, and alternatives for surgical procedure. No guarantees were given nor implied. PREPARATION: The patient was brought into the operating room and placed on the operating room table in a supine position. A timeout was performed for identification of the correct patient and the procedure. After induction of IV sedation, the patient received a total of 20 mL of 1:1 mixture of 2% lidocaine plain and 0.5% Marcaine plain in a local Barrett block fashion. Once local anesthesia was achieved, the foot was then prepped and draped in a normal sterile manner and the procedure began. PROCEDURE: Right foot partial first and second ray resection. Attention was then directed to the right first metatarsal for racket-type incision, extending over the second metatarsal into the second interspace was made circumferentially at the level of the metatarsophalangeal joint using a #15 blade. The incision was then extended down through the subcutaneous layer, down to the level of the bone using a bone clamp to stabilize the hallux. The first and the second digits were then disarticulated from the foot at the level of the metatarsophalangeal joint. Specimen was then passed from the operative field, and sent to Pathology. Using a fresh #15 blade, all necrotic and nonviable tissue was then excisionally debrided from the surgical site. Next, utilizing a #15 blade, all the periosteal tissue was carefully resected off the first and second metatarsal. Using a sagittal saw, distal to the mid shaft of the first metatarsal and the neck of the second metatarsal was then resected and passed from the operative field. All cuts were made in the proper angulation, keeping the weightbearing pressure points in mind. All rough edges were then smoothened using the sagittal saw. The surgical site was then irrigated with copious amounts of normal sterile saline. Subcutaneous tissue was reapproximated with 2-0 Vicryl and skin layers were then reapproximated using 3-0 Prolene using the simple suture technique. [place] drain was placed in the surgical site. The right foot was then dressed with Betadine-soaked 4 x 4 gauze, ABD, and Kerlix, and JONA. POSTOPERATIVE CONDITION: The patient tolerated the anesthesia and procedure well and was escorted to the PACU with vital signs stable and neurovascular status intact in the right foot. The patient is to remain nonweightbearing to the right lower extremity and Podiatry will continue to follow while in-house and will follow up with Dr. Rocha upon discharge. Pastora Hassan DPM
--- NOTE | 2017-08-13 12:18 | CP.PCM.PN ---
Subjective - Date & Time of Evaluation Date of Evaluation: 08/13/17 Time of Evaluation: 12:14 - Subjective Subjective: Pt is S/P right partial 1st and 2nd ray amp. Pt in NAD. Dressing shows some bleeding through. Nursing staff reinforced dressing this AM. Removed drain and redressed sx site. Pt to remain STRICT NON WT BEARING on right foot. Cont medical management and IV abx as per ID. Will f/u. Objective - Vital Signs/Intake and Output Vital Signs (last 24 hours): Temp Pulse Resp BP Pulse Ox 98.3 F 80 20 156/74 H 95 08/13/17 07:36 08/13/17 07:36 08/13/17 07:36 08/13/17 10:14 08/13/17 07:36 Intake and Output: 08/13/17 08/13/17 06:59 18:59 Intake Total 700 920 Balance 700 920 - Medications Medications: Current Medications Acetaminophen (Tylenol 325mg Tab) 650 mg PO Q6 PRN PRN Reason: Pain, Mild (1-3) Amlodipine Besylate (Norvasc) 5 mg PO DAILY [facility] Last Admin: 08/13/17 09:46 Dose: 5 mg Dextrose (Dextrose 50% Inj) 0 ml IV STAT PRN; Protocol PRN Reason: Hypoglycemia Protocol Dextrose (Glutose 15) 0 gm PO ONCE PRN; Protocol PRN Reason: Hypoglycemia Protocol Famotidine (Pepcid) 20 mg PO DAILY PRN PRN Reason: Heartburn Last Admin: 08/13/17 09:45 Dose: 20 mg Gabapentin (Neurontin) 600 mg PO BID [facility] Last Admin: 08/13/17 09:46 Dose: 600 mg Glucagon (Glucagen Diagnostic Kit) 0 mg IM STAT PRN; Protocol PRN Reason: Hypoglycemia Protocol Sodium Chloride (Sodium Chloride 0.9%) 1,000 mls @ 75 mls/hr IV .[id number] [facility] Last Admin: 08/13/17 01:40 Dose: Not Given Dextrose (Dextrose 5% In Water 1000 Ml) 1,000 mls @ 0 mls/hr IV .Q0M PRN; Protocol; Per Protocol PRN Reason: Hypoglycemia Protocol Vancomycin HCl 750 mg/ (Dextrose) 150 mls @ 125 mls/hr IVPB Q12 [facility] Last Admin: 08/13/17 09:45 Dose: 125 mls/hr Lactated Ringer's (Lactated Ringer's) 1,000 mls @ 150 mls/hr IV .Q6H40M [facility] Last Admin: 08/13/17 04:45 Dose: Not Given Insulin Human Regular (Novolin R) 0 unit SC ACHS PERRY PRN Reason: Protocol Last Admin: 08/13/17 08:13 Dose: 4 unit Ketorolac Tromethamine (Toradol) 30 mg IVP Q6 PRN PRN Reason: Pain, moderate (4-7) Last Admin: 08/12/17 20:05 Dose: 30 mg Losartan Potassium (Cozaar) 25 mg PO DAILY [facility] Last Admin: 08/13/17 09:46 Dose: 25 mg Metoprolol Tartrate (Lopressor) 50 mg PO DAILY [facility] Last Admin: 08/13/17 09:46 Dose: 50 mg Klokr-8-Bjml Ethyl Esters (Lovaza) 1 gm PO DAILY [facility] Last Admin: 08/13/17 09:45 Dose: 1 gm Oxycodone/Acetaminophen (Percocet 5/325 Mg Tab) 2 tab PO Q4H PRN PRN Reason: Pain, severe (8-10) Stop: 08/15/17 14:52 Last Admin: 08/13/17 10:12 Dose: 2 tab Rosuvastatin Calcium (Crestor) 20 mg PO HS [facility] Last Admin: 08/12/17 22:13 Dose: 20 mg - Labs Labs: 08/13/17 08:18 08/13/17 08:18 PT 11.4 SECONDS (9.7-12.2) 08/08/17 10:30 INR 1.0 08/08/17 10:30 APTT 28 SECONDS (21-34) 08/08/17 10:30
--- NOTE | 2017-08-14 06:53 | CP.PCM.PN ---
<Onel Worthington - Last Filed: 08/14/17 06:50> Subjective - Date & Time of Evaluation Date of Evaluation: 08/14/17 Time of Evaluation: 06:50 - Subjective Subjective: PGY1 Medicine Note for Dr. Baker Patient seen and examined at bedside this morning. No acute events overnight. Patient is resting comfortably in bed and in good spirits. Patient reports that her pain is currently well controlled. She is tolerating her diet. No complaints at this time. Objective - Vital Signs/Intake and Output Vital Signs (last 24 hours): Temp Pulse Resp BP Pulse Ox 97.1 F L 68 16 111/71 99 08/13/17 23:54 08/13/17 23:54 08/13/17 23:54 08/13/17 23:54 08/13/17 23:54 Intake and Output: 08/13/17 08/14/17 18:59 07:59 Intake Total 1770 650 Balance 1770 650 - Medications Medications: Current Medications Acetaminophen (Tylenol 325mg Tab) 650 mg PO Q6 PRN PRN Reason: Pain, Mild (1-3) Amlodipine Besylate (Norvasc) 5 mg PO DAILY [facility] Last Admin: 08/13/17 09:46 Dose: 5 mg Dextrose (Dextrose 50% Inj) 0 ml IV STAT PRN; Protocol PRN Reason: Hypoglycemia Protocol Dextrose (Glutose 15) 0 gm PO ONCE PRN; Protocol PRN Reason: Hypoglycemia Protocol Famotidine (Pepcid) 20 mg PO DAILY PRN PRN Reason: Heartburn Last Admin: 08/13/17 09:45 Dose: 20 mg Gabapentin (Neurontin) 600 mg PO BID [facility] Last Admin: 08/13/17 18:17 Dose: 600 mg Glucagon (Glucagen Diagnostic Kit) 0 mg IM STAT PRN; Protocol PRN Reason: Hypoglycemia Protocol Vancomycin HCl 750 mg/ (Dextrose) 150 mls @ 125 mls/hr IVPB Q12 [facility] Last Admin: 08/13/17 21:36 Dose: 125 mls/hr Insulin Human Regular (Novolin R) 0 unit SC ACHS PERRY PRN Reason: Protocol Last Admin: 08/13/17 21:59 Dose: Not Given Ketorolac Tromethamine (Toradol) 30 mg IVP Q6 PRN PRN Reason: Pain, moderate (4-7) Last Admin: 08/13/17 18:35 Dose: 30 mg Losartan Potassium (Cozaar) 25 mg PO DAILY [facility] Last Admin: 08/13/17 09:46 Dose: 25 mg Metoprolol Tartrate (Lopressor) 50 mg PO DAILY [facility] Last Admin: 08/13/17 09:46 Dose: 50 mg Ggqyy-0-Hnbt Ethyl Esters (Lovaza) 1 gm PO DAILY [facility] Last Admin: 08/13/17 09:45 Dose: 1 gm Oxycodone/Acetaminophen (Percocet 5/325 Mg Tab) 2 tab PO Q4H PRN PRN Reason: Pain, severe (8-10) Stop: 08/15/17 14:52 Last Admin: 08/13/17 18:35 Dose: 2 tab Rosuvastatin Calcium (Crestor) 20 mg PO HS [facility] Last Admin: 08/13/17 21:37 Dose: 20 mg - Labs Labs: 08/13/17 08:18 08/13/17 08:18 PT 11.4 SECONDS (9.7-12.2) 08/08/17 10:30 INR 1.0 08/08/17 10:30 APTT 28 SECONDS (21-34) 08/08/17 10:30 - Constitutional Appears: Non-toxic, No Acute Distress - Head Exam Head Exam: ATRAUMATIC, NORMOCEPHALIC - Eye Exam Eye Exam: EOMI. absent: Scleral icterus - ENT Exam ENT Exam: Mucous Membranes Moist - Respiratory Exam Respiratory Exam: Clear to Ausculation Bilateral, NORMAL BREATHING PATTERN. absent: Accessory Muscle Use, Rales, Rhonchi, Wheezes, Respiratory Distress - Cardiovascular Exam Cardiovascular Exam: REGULAR RHYTHM, +S1, +S2 - GI/Abdominal Exam GI & Abdominal Exam: Soft, Normal Bowel Sounds. absent: Distended, Firm, Guarding, Rigid, Tenderness - Extremities Exam Extremities Exam: absent: Calf Tenderness Additional comments: s/p amputation of 1st and 2nd digits on right foot. dressing c/d/i, - Neurological Exam Neurological Exam: Alert, Awake, Oriented x3 - Psychiatric Exam Psychiatric exam: Normal Affect, Normal Mood - Skin Skin Exam: Dry, Warm Assessment and Plan - Assessment and Plan (Free Text) Plan: Gangrene of 1st and 2nd digits of right foot * Podiatry consulted, Dr. Rocha; recs appreciated * s/p amputation of 1st and 2nd digits on right foot, POD#2 * hold eliquis, ASA, and DVT prophylaxis * f/u podiatry recs * Vascular surgery consulted, Dr. Nur; recs appreciated * Infectious disease consulted, Dr. Quintero; recs appreciated * Wound care * PT * Blood cultures negative x2 @5 days * Percocet PRN pain * Toradol 30 mg IV Q6 prn pain * Vancomycin 750 mg Q12H Imaging * Foot XR: no evidence of osteomyelitis, gas forming cellulitis appreciated [place] * BUN/Cr: 13/0.9 * NS @ 75 cc/h * Hold Metformin History of PVD with b/l stents * Vascular surgery consulted, Dr. Nur; recs appreciated Imaging * Abd CTA 3/ - 1. The abdominal is mild calcific plaque and a focal ulcerative plaque in the distal aorta. 2. There is moderate stenosis of both right and left common iliac artery and external iliac arteries. * RIGHT LOWER EXTREMITY CT ANGIOGRAM: 1. Mild stenosis of the common femoral artery. 2. Previously stented SFA is patent. 3. Popliteal artery is unremarkable. 4. Anterior tibial artery is normal. The tibioperoneal artery is heavily calcified which limits its evaluation but is believed to be patent. The peroneal and posterior tibial artery patent. * LEFT LOWER EXTREMITY CT ANGIOGRAM: 1. Moderate stenosis of the common femoral artery. Profunda femoral artery is unremarkable. 2. Previously stented SFA is occluded. 3. Popliteal artery is severely stenotic. 4. Anterior tibial artery, posterior tibial artery, and peroneal artery are patent. DM * Accuchecks * ISS medium dose * hypoglycemic protocol * continue gabapentin 600 mg BID * hold metformin, januvia, and glipizide HTN * Continue home meds: * norvasc 5 mg daily * losartan 25 mg daily * lopressor 50 mg daily HLD * Crestor 20 mg HS * [place] 3 History of DVT * hold home eliquis for surgery - will await surgery recs PPX * GI: pepcid 20 mg daily * DVT: will await recs from podiatry Will discuss case with Dr. Olivia Mcneiln PGY1 <Luis Alberto Baker - Last Filed: 08/14/17 12:01> Objective - Vital Signs/Intake and Output Vital Signs (last 24 hours): Temp Pulse Resp BP Pulse Ox 98.1 F 97 H 20 155/75 H 98 08/14/17 08:44 08/14/17 08:44 08/14/17 08:44 08/14/17 08:44 08/14/17 08:44 Intake and Output: 08/14/17 08/14/17 06:59 18:59 Intake Total Balance - Medications Medications: Current Medications Acetaminophen (Tylenol 325mg Tab) 650 mg PO Q6 PRN PRN Reason: Pain, Mild (1-3) Amlodipine Besylate (Norvasc) 5 mg PO DAILY [facility] Last Admin: 08/14/17 10:17 Dose: 5 mg Apixaban (Eliquis) 2.5 mg PO BID [facility] Dextrose (Dextrose 50% Inj) 0 ml IV STAT PRN; Protocol PRN Reason: Hypoglycemia Protocol Dextrose (Glutose 15) 0 gm PO ONCE PRN; Protocol PRN Reason: Hypoglycemia Protocol Famotidine (Pepcid) 20 mg PO DAILY PRN PRN Reason: Heartburn Last Admin: 08/14/17 10:17 Dose: 20 mg Gabapentin (Neurontin) 600 mg PO BID [facility] Last Admin: 08/14/17 10:17 Dose: 600 mg Glucagon (Glucagen Diagnostic Kit) 0 mg IM STAT PRN; Protocol PRN Reason: Hypoglycemia Protocol Vancomycin HCl 750 mg/ (Dextrose) 150 mls @ 125 mls/hr IVPB Q12 [facility] Last Admin: 08/14/17 10:21 Dose: 125 mls/hr Insulin Human Regular (Novolin R) 0 unit SC ACHS PERRY PRN Reason: Protocol Last Admin: 08/14/17 09:30 Dose: 3 unit Losartan Potassium (Cozaar) 25 mg PO DAILY [facility] Last Admin: 08/14/17 10:17 Dose: 25 mg Metoprolol Tartrate (Lopressor) 50 mg PO DAILY [facility] Last Admin: 08/14/17 10:17 Dose: 50 mg Bvhib-2-Iyij Ethyl Esters (Lovaza) 1 gm PO DAILY [facility] Last Admin: 08/14/17 10:18 Dose: 1 gm Oxycodone/Acetaminophen (Percocet 5/325 Mg Tab) 2 tab PO Q4H PRN PRN Reason: Pain, severe (8-10) Stop: 08/15/17 14:52 Last Admin: 08/13/17 18:35 Dose: 2 tab Rosuvastatin Calcium (Crestor) 20 mg PO HS [facility] Last Admin: 08/13/17 21:37 Dose: 20 mg - Labs Labs: 08/13/17 08:18 08/13/17 08:18 PT 11.4 SECONDS (9.7-12.2) 08/08/17 10:30 INR 1.0 08/08/17 10:30 APTT 28 SECONDS (21-34) 08/08/17 10:30 Attending/Attestation - Attestation I have personally seen and examined this patient.: Yes I have fully participated in the care of the patient.: Yes I have reviewed all pertinent clinical information, including history, physical exam and plan: Yes Notes (Text): Medical attending: Patient was seen and examined by me. Agree with the above note by the resident The patient was not in any acute distress The patient reported pain was well controlled. She was able to sleep. Also it does not appear patient will be having further vascular intervention now. Per podiatry can restart ASA and Eliquis today. Maybe she can be discharged tommow?? She will need follow up thank you Luis Alberto Baker
[2017-08-14] MEDS: (Novolin R) Insulin Human Regular 100 units/ml vial SC SCH ×4 (09:30→21:42)
[2017-08-14] MEDS: Omega-3-Acid Ethyl Esters 1 GM Cap PO SCH (10:18)
[2017-08-14] MEDS: Vancomycin 750 MG in Dextrose 5% In Water 150 ML IVPB SCH ×2 (10:21→21:09)
--- NOTE | 2017-08-14 12:21 | CP.PCM.PN ---
Subjective - Date & Time of Evaluation Date of Evaluation: 08/14/17 Time of Evaluation: 12:20 - Subjective Subjective: Podiatry note for Dr. Rocha 67 y/o female was seen at bedside this morning 2 days s/p right foot surgery of 1st and 2nd digits. Right foot dressing remains clean,dry,intact. She is doing well in bed, AAOx3, NAD overnight. Patient denies of any other pedal complaints. Pt denies of any recent F/N/V/C/SOB. Objective - Vital Signs/Intake and Output Vital Signs (last 24 hours): Temp Pulse Resp BP Pulse Ox 98.1 F 97 H 20 155/75 H 98 08/14/17 08:44 08/14/17 08:44 08/14/17 08:44 08/14/17 08:44 08/14/17 08:44 Intake and Output: 08/14/17 08/14/17 06:59 18:59 Intake Total Balance - Medications Medications: Current Medications Acetaminophen (Tylenol 325mg Tab) 650 mg PO Q6 PRN PRN Reason: Pain, Mild (1-3) Amlodipine Besylate (Norvasc) 5 mg PO DAILY [facility] Last Admin: 08/14/17 10:17 Dose: 5 mg Apixaban (Eliquis) 2.5 mg PO BID [facility] Dextrose (Dextrose 50% Inj) 0 ml IV STAT PRN; Protocol PRN Reason: Hypoglycemia Protocol Dextrose (Glutose 15) 0 gm PO ONCE PRN; Protocol PRN Reason: Hypoglycemia Protocol Famotidine (Pepcid) 20 mg PO DAILY PRN PRN Reason: Heartburn Last Admin: 08/14/17 10:17 Dose: 20 mg Gabapentin (Neurontin) 600 mg PO BID [facility] Last Admin: 08/14/17 10:17 Dose: 600 mg Glucagon (Glucagen Diagnostic Kit) 0 mg IM STAT PRN; Protocol PRN Reason: Hypoglycemia Protocol Vancomycin HCl 750 mg/ (Dextrose) 150 mls @ 125 mls/hr IVPB Q12 [facility] Last Admin: 08/14/17 10:21 Dose: 125 mls/hr Insulin Human Regular (Novolin R) 0 unit SC ACHS PERRY PRN Reason: Protocol Last Admin: 08/14/17 09:30 Dose: 3 unit Losartan Potassium (Cozaar) 25 mg PO DAILY [facility] Last Admin: 03/11/18 10:17 Dose: 25 mg Metoprolol Tartrate (Lopressor) 50 mg PO DAILY [facility] Last Admin: 08/14/17 10:17 Dose: 50 mg Zjsst-7-Puyd Ethyl Esters (Lovaza) 1 gm PO DAILY [facility] Last Admin: 08/14/17 10:18 Dose: 1 gm Oxycodone/Acetaminophen (Percocet 5/325 Mg Tab) 2 tab PO Q4H PRN PRN Reason: Pain, severe (8-10) Stop: 08/15/17 14:52 Last Admin: 08/13/17 18:35 Dose: 2 tab Rosuvastatin Calcium (Crestor) 20 mg PO HS [facility] Last Admin: 08/13/17 21:37 Dose: 20 mg - Labs Labs: 08/13/17 08:18 08/13/17 08:18 PT 11.4 SECONDS (9.7-12.2) 08/08/17 10:30 INR 1.0 08/08/17 10:30 APTT 28 SECONDS (21-34) 08/08/17 10:30 - Constitutional Appears: Well, Non-toxic, No Acute Distress - Extremities Exam Additional comments: right lower extremity focused: dressing remains clean,dry,intact cft < 3 sec to all digits able to wiggle toes no calf pain or tenderness to palpation - Neurological Exam Neurological Exam: Alert, Awake, Oriented x3 - Psychiatric Exam Psychiatric exam: Normal Affect, Normal Mood Assessment and Plan - Assessment and Plan (Free Text) Assessment: 67 yo female patient 2 days s/p right foot 1st and 2nd digit amputation secondary to gangrene Plan: patient evaluated and chart reviewed discussed in detail with attending Dr. Rocha labs and vitals reviewed; afebrile, WBC 6.8 cont. abx as recommended dressing remains intact, will change bandage tomorrow cont. pain meds prn podiatry will continue to follow while patient remains in house
[2017-08-14] MEDS: Oxycodone/Acetaminophen 5/325 mg Tab PO PRN ×2 (12:28→22:25)
--- NOTE | 2017-08-14 15:16 | CP.PCM.PN ---
Subjective - Date & Time of Evaluation Date of Evaluation: 08/14/17 Time of Evaluation: 08:00 - Subjective Subjective: stable left foot wounds dry s/p right 4th 5th amp Objective - Vital Signs/Intake and Output Vital Signs (last 24 hours): Temp Pulse Resp BP Pulse Ox 98.1 F 97 H 20 155/75 H 98 08/14/17 08:44 08/14/17 08:44 08/14/17 08:44 08/14/17 08:44 08/14/17 08:44 Intake and Output: 08/14/17 08/14/17 06:59 18:59 Intake Total Balance - Medications Medications: Current Medications Acetaminophen (Tylenol 325mg Tab) 650 mg PO Q6 PRN PRN Reason: Pain, Mild (1-3) Amlodipine Besylate (Norvasc) 5 mg PO DAILY [facility] Last Admin: 08/14/17 10:17 Dose: 5 mg Apixaban (Eliquis) 2.5 mg PO BID [facility] Dextrose (Dextrose 50% Inj) 0 ml IV STAT PRN; Protocol PRN Reason: Hypoglycemia Protocol Dextrose (Glutose 15) 0 gm PO ONCE PRN; Protocol PRN Reason: Hypoglycemia Protocol Famotidine (Pepcid) 20 mg PO DAILY PRN PRN Reason: Heartburn Last Admin: 08/14/17 10:17 Dose: 20 mg Gabapentin (Neurontin) 600 mg PO BID [facility] Last Admin: 08/14/17 10:17 Dose: 600 mg Glucagon (Glucagen Diagnostic Kit) 0 mg IM STAT PRN; Protocol PRN Reason: Hypoglycemia Protocol Vancomycin HCl 750 mg/ (Dextrose) 150 mls @ 125 mls/hr IVPB Q12 [facility] Last Admin: 08/14/17 10:21 Dose: 125 mls/hr Insulin Human Regular (Novolin R) 0 unit SC ACHS PERRY PRN Reason: Protocol Last Admin: 08/14/17 12:30 Dose: 6 unit Losartan Potassium (Cozaar) 25 mg PO DAILY [facility] Last Admin: 08/14/17 10:17 Dose: 25 mg Metoprolol Tartrate (Lopressor) 50 mg PO DAILY [facility] Last Admin: 08/14/17 10:17 Dose: 50 mg Hrvrs-5-Qbar Ethyl Esters (Lovaza) 1 gm PO DAILY [facility] Last Admin: 08/14/17 10:18 Dose: 1 gm Oxycodone/Acetaminophen (Percocet 5/325 Mg Tab) 2 tab PO Q4H PRN PRN Reason: Pain, severe (8-10) Stop: 08/15/17 14:52 Last Admin: 08/14/17 12:28 Dose: 2 tab Rosuvastatin Calcium (Crestor) 20 mg PO HS [facility] Last Admin: 08/13/17 21:37 Dose: 20 mg - Labs Labs: 08/13/17 08:18 08/13/17 08:18 PT 11.4 SECONDS (9.7-12.2) 08/08/17 10:30 INR 1.0 08/08/17 10:30 APTT 28 SECONDS (21-34) 08/08/17 10:30 - Constitutional Appears: Non-toxic, Chronically Ill - Head Exam Head Exam: NORMOCEPHALIC - Eye Exam Eye Exam: PERRL - ENT Exam ENT Exam: Mucous Membranes Dry - Neck Exam Neck Exam: absent: Lymphadenopathy - Respiratory Exam Respiratory Exam: Decreased Breath Sounds - Cardiovascular Exam Cardiovascular Exam: REGULAR RHYTHM - GI/Abdominal Exam GI & Abdominal Exam: Soft - Rectal Exam Rectal Exam: Deferred - Exam Exam: NORMAL INSPECTION Assessment and Plan (1) Arthritis Status: Acute (2) CKD (chronic kidney disease) stage 2, GFR 60-89 ml/min Status: Acute (3) COPD (chronic obstructive pulmonary disease) Status: Acute (4) Cellulitis Status: Acute (5) History of coronary artery disease Status: Acute (6) CAD (coronary artery disease) Status: Chronic (7) Chronic kidney disease, stage 3 Status: Chronic (8) Diabetes mellitus Status: Chronic (9) HTN (hypertension) Status: Chronic (10) PVD (peripheral vascular disease) Status: Chronic
[2017-08-15 07:20] LABS: BASO % 0.4 % (0.0-2.0); EOS # 0.1 K/uL (0.0-0.7); EOS % 1.8 % (0.0-4.0); HEMOGLOBIN 8.4 g/dL (11.0-16.0); LYMPH # 1.2 K/uL (1.0-4.3); LYMPH % 22.3 % (20.0-40.0); MEAN CELL VOLUME 78.8 fL (81.0-99.0); MEAN CORPUSCULAR HEMOGLOBIN 26.8 pg (27.0-31.0); MEAN PLATELET VOLUME 9.5 fL (7.2-11.7); MONO # 0.4 K/uL (0.0-0.8); MONO % 7.7 % (0.0-10.0); NEUT # 3.6 K/uL (1.8-7.0); NEUT % 67.8 % (50.0-75.0); RBC 3.13 Mil/uL (3.80-5.20); RED CELL DISTRIBUTION WIDTH 13.7 % (11.5-14.5); WHITE BLOOD COUNT 5.3 K/uL (4.8-10.8)
[2017-08-15 07:39] LABS: ALB/GLOB RATIO 0.9 (1.0-2.1); ALBUMIN 2.9 g/dL (3.5-5.0); CALCIUM 8.4 mg/dl (8.6-10.4)
--- NOTE | 2017-08-15 08:07 | CP.PCM.PN ---
Subjective - Date & Time of Evaluation Date of Evaluation: 08/15/17 Time of Evaluation: 07:30 - Subjective Subjective: Medicine progress note for Dr. Diaz Patient seen and examined. Patient reporting neuropathic pain in her extremities. Patient states that her pain from the surgery is well controlled. Patient has no other complaints and is amenable to rehab. Objective - Vital Signs/Intake and Output Vital Signs (last 24 hours): Temp Pulse Resp BP Pulse Ox 98.5 F 73 16 109/57 L 98 08/15/17 00:09 08/15/17 00:09 08/15/17 00:09 08/15/17 00:09 08/15/17 00:09 Intake and Output: 08/15/17 08/15/17 06:59 18:59 Intake Total 550 Balance 550 - Medications Medications: Current Medications Acetaminophen (Tylenol 325mg Tab) 650 mg PO Q6 PRN PRN Reason: Pain, Mild (1-3) Amlodipine Besylate (Norvasc) 5 mg PO DAILY [facility] Last Admin: 08/14/17 10:17 Dose: 5 mg Apixaban (Eliquis) 2.5 mg PO BID [facility] Last Admin: 08/14/17 18:22 Dose: 2.5 mg Dextrose (Dextrose 50% Inj) 0 ml IV STAT PRN; Protocol PRN Reason: Hypoglycemia Protocol Dextrose (Glutose 15) 0 gm PO ONCE PRN; Protocol PRN Reason: Hypoglycemia Protocol Famotidine (Pepcid) 20 mg PO DAILY PRN PRN Reason: Heartburn Last Admin: 08/14/17 10:17 Dose: 20 mg Gabapentin (Neurontin) 600 mg PO BID [facility] Last Admin: 08/14/17 17:21 Dose: 600 mg Glucagon (Glucagen Diagnostic Kit) 0 mg IM STAT PRN; Protocol PRN Reason: Hypoglycemia Protocol Insulin Human Regular (Novolin R) 0 unit SC ACHS [facility] PRN Reason: Protocol Last Admin: 08/14/17 21:42 Dose: Not Given Losartan Potassium (Cozaar) 25 mg PO DAILY [facility] Last Admin: 08/14/17 10:17 Dose: 25 mg Metoprolol Tartrate (Lopressor) 50 mg PO DAILY [facility] Last Admin: 08/14/17 10:17 Dose: 50 mg Koflu-7-Ezmc Ethyl Esters (Lovaza) 1 gm PO DAILY [facility] Last Admin: 08/14/17 10:18 Dose: 1 gm Oxycodone/Acetaminophen (Percocet 5/325 Mg Tab) 2 tab PO Q4H PRN PRN Reason: Pain, severe (8-10) Stop: 08/15/17 14:52 Last Admin: 08/14/17 22:25 Dose: 2 tab Rosuvastatin Calcium (Crestor) 20 mg PO HS [facility] Last Admin: 08/14/17 21:09 Dose: 20 mg - Labs Labs: 08/15/17 06:54 08/15/17 06:54 PT 11.4 SECONDS (9.7-12.2) 08/08/17 10:30 INR 1.0 08/08/17 10:30 APTT 28 SECONDS (21-34) 08/08/17 10:30 - Additional Findings Additional findings: - Constitutional Appears: Non-toxic, No Acute Distress - Head Exam Head Exam: ATRAUMATIC, NORMOCEPHALIC - Eye Exam Eye Exam: EOMI, Normal appearance - ENT Exam ENT Exam: Mucous Membranes Moist - Respiratory Exam Respiratory Exam: Clear to Ausculation Bilateral, NORMAL BREATHING PATTERN. absent: Accessory Muscle Use, Rales, Rhonchi, Wheezes, Respiratory Distress - Cardiovascular Exam Cardiovascular Exam: REGULAR RHYTHM, +S1, +S2 - GI/Abdominal Exam GI & Abdominal Exam: Soft, Normal Bowel Sounds. absent: Distended, Firm, Guarding, Rigid, Tenderness - Extremities Exam Extremities Exam: absent: Calf Tenderness Additional comments: Ulcer on the medial left ankle below the medial malleolus s/p amputation of 1st and 2nd digits on right foot. dressing c/d/i, - Neurological Exam Neurological Exam: Alert, Awake, Oriented x3 - Psychiatric Exam Psychiatric exam: Normal Affect, Normal Mood - Skin Skin Exam: Dry, Warm Assessment and Plan - Assessment and Plan (Free Text) Plan: Gangrene of 1st and 2nd digits of right foot * Podiatry consulted, Dr. Rocha; recs appreciated * s/p amputation of 1st and 2nd digits on right foot on 08/12/17 * f/u podiatry recs * Vascular surgery consulted, Dr. Nur; recs appreciated * Infectious disease consulted, Dr. Quintero; recs appreciated * Wound care * PT * Blood cultures negative x2 @5 days * Percocet PRN pain * Toradol 30 mg IV Q6 prn pain * Vancomycin 750 mg Q12H Imaging * Foot XR: no evidence of osteomyelitis, gas forming cellulitis appreciated [place] * BUN/Cr: 17/1.2 * NS @ 75 cc/h * Hold Metformin History of PVD with b/l stents * Vascular surgery consulted, Dr. Nur; recs appreciated Imaging * Abd CTA 08/09 - 1. The abdominal is mild calcific plaque and a focal ulcerative plaque in the distal aorta. 2. There is moderate stenosis of both right and left common iliac artery and external iliac arteries. * RIGHT LOWER EXTREMITY CT ANGIOGRAM: 1. Mild stenosis of the common femoral artery. 2. Previously stented SFA is patent. 3. Popliteal artery is unremarkable. 4. Anterior tibial artery is normal. The tibioperoneal artery is heavily calcified which limits its evaluation but is believed to be patent. The peroneal and posterior tibial artery patent. * LEFT LOWER EXTREMITY CT ANGIOGRAM: 1. Moderate stenosis of the common femoral artery. Profunda femoral artery is unremarkable. 2. Previously stented SFA is occluded. 3. Popliteal artery is severely stenotic. 4. Anterior tibial artery, posterior tibial artery, and peroneal artery are patent. DM * Accuchecks * ISS medium dose * hypoglycemic protocol * continue gabapentin 600 mg BID * hold metformin, januvia, and glipizide HTN * Continue home meds: * norvasc 5 mg daily * losartan 25 mg daily * lopressor 50 mg daily HLD * Crestor 20 mg HS * [place] 3 History of DVT * home eliquis 2.5 mg BID PPX * GI: pepcid 20 mg daily * DVT: Eliquis 2.5 mg BID
[2017-08-15 08:13] VITALS: RESP 20
[2017-08-15] MEDS: (Novolin R) Insulin Human Regular 100 units/ml vial SC SCH ×3 (08:15→16:30)
[2017-08-15] MEDS: Omega-3-Acid Ethyl Esters 1 GM Cap PO SCH (10:08)
--- NOTE | 2017-08-15 11:50 | CP.PCM.PN ---
Subjective - Date & Time of Evaluation Date of Evaluation: 08/15/17 Time of Evaluation: 07:00 - Subjective Subjective: cultures all neg to be D/C'd Objective - Vital Signs/Intake and Output Vital Signs (last 24 hours): Temp Pulse Resp BP Pulse Ox 98.5 F 72 20 133/61 98 08/15/17 08:10 08/15/17 08:10 08/15/17 08:10 08/15/17 08:10 08/15/17 08:10 Intake and Output: 08/15/17 08/15/17 06:59 18:59 Intake Total 550 Balance 550 - Medications Medications: Current Medications Acetaminophen (Tylenol 325mg Tab) 650 mg PO Q6 PRN PRN Reason: Pain, Mild (1-3) Amlodipine Besylate (Norvasc) 5 mg PO DAILY ON LICENSE OF [facility] Last Admin: 08/15/17 10:09 Dose: 5 mg Apixaban (Eliquis) 2.5 mg PO BID ON LICENSE OF [facility] Last Admin: 08/15/17 10:09 Dose: 2.5 mg Aspirin (Aspirin Chewable) 81 mg PO DAILY ON LICENSE OF [facility] Dextrose (Dextrose 50% Inj) 0 ml IV STAT PRN; Protocol PRN Reason: Hypoglycemia Protocol Dextrose (Glutose 15) 0 gm PO ONCE PRN; Protocol PRN Reason: Hypoglycemia Protocol Famotidine (Pepcid) 20 mg PO DAILY PRN PRN Reason: Heartburn Last Admin: 08/14/17 10:17 Dose: 20 mg Gabapentin (Neurontin) 600 mg PO TID ON LICENSE OF [facility] Glucagon (Glucagen Diagnostic Kit) 0 mg IM STAT PRN; Protocol PRN Reason: Hypoglycemia Protocol Insulin Human Regular (Novolin R) 0 unit SC ACHS ON LICENSE OF [facility] PRN Reason: Protocol Last Admin: 08/15/17 08:15 Dose: 4 unit Losartan Potassium (Cozaar) 25 mg PO DAILY ON LICENSE OF [facility] Last Admin: 08/15/17 10:09 Dose: 25 mg Metoprolol Tartrate (Lopressor) 50 mg PO DAILY ON LICENSE OF [facility] Last Admin: 08/15/17 10:09 Dose: 50 mg Opeyb-[id number] Ethyl Esters (Lovaza) 1 gm PO DAILY ON LICENSE OF [facility] Last Admin: 08/15/17 10:08 Dose: 1 gm Oxycodone/Acetaminophen (Percocet 5/325 Mg Tab) 2 tab PO Q4H PRN PRN Reason: Pain, severe (8-10) Stop: 08/15/17 14:52 Last Admin: 08/14/17 22:25 Dose: 2 tab Rosuvastatin Calcium (Crestor) 20 mg PO HS PERRY Last Admin: 08/14/17 21:09 Dose: 20 mg - Labs Labs: 08/15/17 06:54 08/15/17 06:54 PT 11.4 SECONDS (9.7-12.2) 08/08/17 10:30 INR 1.0 08/08/17 10:30 APTT 28 SECONDS (21-34) 08/08/17 10:30 - Constitutional Appears: Non-toxic, Chronically Ill - Head Exam Head Exam: NORMOCEPHALIC - Eye Exam Eye Exam: PERRL - ENT Exam ENT Exam: Mucous Membranes Dry - Neck Exam Neck Exam: absent: Lymphadenopathy - Respiratory Exam Respiratory Exam: Decreased Breath Sounds - Cardiovascular Exam Cardiovascular Exam: REGULAR RHYTHM - GI/Abdominal Exam GI & Abdominal Exam: Distended Assessment and Plan (1) Arthritis Status: Acute (2) CKD (chronic kidney disease) stage 2, GFR 60-89 ml/min Status: Acute (3) COPD (chronic obstructive pulmonary disease) Status: Acute (4) Cellulitis Status: Acute (5) History of coronary artery disease Status: Acute (6) CAD (coronary artery disease) Status: Chronic (7) Chronic kidney disease, stage 3 Status: Chronic (8) Diabetes mellitus Status: Chronic (9) HTN (hypertension) Status: Chronic (10) PVD (peripheral vascular disease) Status: Chronic
[2017-08-15] MEDS: Oxycodone/Acetaminophen 5/325 mg Tab PO PRN (12:23)
[2017-08-15 14:13] LABS: AST/SGOT 14 U/L (14-36)
--- NOTE | 2017-08-15 15:29 | CP.PCM.DIS ---
Provider - Provider Date of Admission: 08/08/17 12:07 Attending physician: Luis Alberto Baker DO Primary care physician: Dr. Delaney Consults: Podiatry: Dr. Nelson Rocha Vascular Surgery: Dr. Nur Time Spent in preparation of Discharge (in minutes): 40 Diagnosis - Discharge Diagnosis (1) Gangrene of toe of right foot Status: Acute Priority: High (2) MERLINE (acute kidney injury) Status: Acute Priority: High (3) PVD (peripheral vascular disease) Status: Chronic Priority: High (4) Diabetes mellitus Status: Chronic Priority: Medium (5) HTN (hypertension) Status: Chronic Priority: Medium (6) History of deep vein thrombosis Status: Chronic Priority: Medium (7) Hyperlipidemia Status: Chronic Priority: Medium Hospital Course - Lab Results Lab Results: Micro Results 08/08/17 12:15 Blood Blood Culture - Final NO GROWTH AFTER 5 DAYS 08/08/17 12:15 Blood Gram Stain - Final TEST NOT PERFORMED 08/08/17 10:20 Blood Blood Culture - Final NO GROWTH AFTER 5 DAYS 08/08/17 10:20 Blood Gram Stain - Final TEST NOT PERFORMED Most Recent Lab Values WBC 5.3 K/uL (4.8-10.8) 08/15/17 06:54 RBC 3.13 Mil/uL (3.80-5.20) L 08/15/17 06:54 Hgb 8.4 g/dL (11.0-16.0) L 08/15/17 06:54 Hct 24.7 % (34.0-47.0) L 08/15/17 06:54 MCV 78.8 fL (81.0-99.0) L 08/15/17 06:54 MCH 26.8 pg (27.0-31.0) L 08/15/17 06:54 MCHC 34.0 g/dL (33.0-37.0) 08/15/17 06:54 RDW 13.7 % (11.5-14.5) 08/15/17 06:54 Plt Count 137 K/uL (130-400) 08/15/17 06:54 MPV 9.5 fL (7.2-11.7) 08/15/17 06:54 Neut % (Auto) 67.8 % (50.0-75.0) 08/15/17 06:54 Lymph % (Auto) 22.3 % (20.0-40.0) 08/15/17 06:54 [place] % (Auto) 7.7 % (0.0-10.0) 08/15/17 06:54 Eos % (Auto) 1.8 % (0.0-4.0) 08/15/17 06:54 Baso % (Auto) 0.4 % (0.0-2.0) 08/15/17 06:54 Neut # (Auto) 3.6 K/uL (1.8-7.0) 08/15/17 06:54 Lymph # (Auto) 1.2 K/uL (1.0-4.3) 08/15/17 06:54 [place] # (Auto) 0.4 K/uL (0.0-0.8) 08/15/17 06:54 Eos # (Auto) 0.1 K/uL (0.0-0.7) 08/15/17 06:54 Baso # (Auto) 0.0 K/uL (0.0-0.2) 08/15/17 06:54 PT 11.4 SECONDS (9.7-12.2) 08/08/17 10:30 INR 1.0 08/08/17 10:30 APTT 28 SECONDS (21-34) 08/08/17 10:30 Sodium 136 mmol/L (132-148) 08/15/17 06:54 Potassium 4.7 mmol/L (3.6-5.2) 08/15/17 06:54 Chloride 102 mmol/L (98-107) 08/15/17 06:54 Carbon Dioxide 27 mmol/L (22-30) 08/15/17 06:54 Anion Gap 12 (10-20) 08/15/17 06:54 BUN 17 mg/dL (7-17) 08/15/17 06:54 Creatinine 1.2 mg/dL (0.7-1.2) 08/15/17 06:54 Est GFR ( Amer) 54 08/15/17 06:54 Est GFR (Non-Af Amer) 45 08/15/17 06:54 POC Glucose (mg/dL) 282 mg/dL (65-110) H 08/15/17 11:16 Random Glucose 264 mg/dL (65-105) H 08/15/17 06:54 Hemoglobin A1c 7.8 % (4.2-6.5) H 08/15/17 09:55 Calcium 8.4 mg/dl (8.6-10.4) L 08/15/17 06:54 Phosphorus 3.9 mg/dL (2.5-4.5) 08/15/17 06:54 Magnesium 2.0 mg/dL (1.6-2.3) 08/15/17 06:54 Total Bilirubin 0.2 mg/dL (0.2-1.3) 08/15/17 06:54 AST 13 U/L (14-36) L 08/15/17 06:54 ALT 21 U/L (9-52) 08/15/17 06:54 Alkaline Phosphatase 66 U/L (38-126) 08/15/17 06:54 Total Protein 5.9 g/dL (6.3-8.3) L 08/15/17 06:54 Albumin 2.9 g/dL (3.5-5.0) L 08/15/17 06:54 Globulin 3.1 gm/dL (2.2-3.9) 08/15/17 06:54 Albumin/Globulin Ratio 0.9 (1.0-2.1) L 08/15/17 06:54 Vancomycin Trough 21.6 ug/mL (5.0-10.0) H 08/15/17 06:54 Blood Type B POSITIVE 08/08/17 10:30 Antibody Screen Negative 08/08/17 10:30 - Hospital Course Hospital Course: Initial Note: "Patient is a 67 y/o female with past medical history of diabetes, hypertension , hyperlipidemia, peripheral vascular disease, DVT, and CAD, who presents to the ED with gangrene of the 1st and 2nd digits of her right foot. She also complains of pain in her left foot due to multiple cuts on the sole. Patient denies trauma to the left foot and attributes the cuts to dryness caused by diabetes. She states the pain to her feet started couple weeks ago, with her right toes turning completely black about a week ago. She has been taking Percocet for pain and used Dermasil and Triple Antibiotics Cream on her toes. The pain does not radiate up her legs and stays localized to her feet. Patient rates the pain on her right toes a 5/10 and left foot, 10/10. She visited Dr. Nur last week concerning her toes, and he advised her to come to the hospital today for admission and amputation of her right 1st and 2nd toes on Tuesday. Patient states she has no trouble walking and has been using a cane to ambulate. Currently, patient complains of pain in her right 1st and 2nd toes and in the left sole, as well as coldness and occasional numbness and tingling to her feet bilaterally. She denies ISBELL, fever, chills, n/v, chest pain, abdominal pain, and leg swelling/pain." Hospital Course: Patient admitted for gangrene of the 1st and 2nd digits of the right foot. Patient underwent amputation by Dr. Rocha on 08/12/17. Patient has been receiving Vancomycin 750 mg IV Q12, and due to negative cultures, antibiotics were discontinued. Patient also with acute kidney injury which has improved with IV hydration. Patient stable for discharge per podiatry team. Patient also had evaluation by vascular surgery. There is occlusion of the left SFA however given that the patient has collateral flow intact, no surgical intervention was advised at this time. Patient has agreed for [facility]E and will be discharged to [facility]. Pertinent Imaging as below: * Abd CTA 08/09 - 1. The abdominal aorta has mild calcific plaque and a focal ulcerative plaque in the distal aorta. 2. There is moderate stenosis of both right and left common iliac artery and external iliac arteries. * RIGHT LOWER EXTREMITY CT ANGIOGRAM: 1. Mild stenosis of the common femoral artery. 2. Previously stented SFA is patent. 3. Popliteal artery is unremarkable. 4. Anterior tibial artery is normal. The tibioperoneal artery is heavily calcified which limits its evaluation but is believed to be patent. The peroneal and posterior tibial artery patent. * LEFT LOWER EXTREMITY CT ANGIOGRAM: 1. Moderate stenosis of the common femoral artery. Profunda femoral artery is unremarkable. 2. Previously stented SFA is occluded. 3. Popliteal artery is severely stenotic. 4. Anterior tibial artery, posterior tibial artery, and peroneal artery are patent. This is a summary of the hospital course. For more information, refer to the medical records. Discharge Exam - Additional Findings Additional findings: - Constitutional Appears: Non-toxic, No Acute Distress - Head Exam Head Exam: ATRAUMATIC, NORMOCEPHALIC - Eye Exam Eye Exam: EOMI, Normal appearance - ENT Exam ENT Exam: Mucous Membranes Moist - Respiratory Exam Respiratory Exam: Clear to Ausculation Bilateral, NORMAL BREATHING PATTERN. absent: Accessory Muscle Use, Rales, Rhonchi, Wheezes, Respiratory Distress - Cardiovascular Exam Cardiovascular Exam: REGULAR RHYTHM, +S1, +S2 - GI/Abdominal Exam GI & Abdominal Exam: Soft, Normal Bowel Sounds. absent: Distended, Firm, Guarding, Rigid, Tenderness - Extremities Exam Extremities Exam: absent: Calf Tenderness Additional comments: Healing ulcer on the medial left ankle below the medial malleolus s/p amputation of 1st and 2nd digits on right foot. dressing c/d/i, - Neurological Exam Neurological Exam: Alert, Awake, Oriented x3 - Psychiatric Exam Psychiatric exam: Normal Affect, Normal Mood - Skin Skin Exam: Dry, Warm Discharge Plan - Follow Up Plan Condition: STABLE Disposition: HOME/ ROUTINE Instructions: Toe Injury (DC), Gangrene (DC), Amputation of the Foot or Toe (DC ) Additional Instructions: Please continue medications as per medication reconciliation list. Patient is on home Metformin 1000 mg PO BID, Glipizide 10 mg PO daily, and Januvia 100 mg PO daily. May restart when kidney numbers improve. If there are any new or worsening symptoms, please go to the nearest emergency room. Referrals: Lisbeth Delaney DO [Staff Provider] - Joseph Nur Jr., MD [Staff Provider] - Nelson Rocha DPM [Staff Provider] -
[2017-08-15 17:33] VITALS: BP 114/65; PULSE 58; TEMP 98.6
--- NOTE | 2017-08-16 15:57 | CP.PCM.PN ---
Subjective - Date & Time of Evaluation Date of Evaluation: 08/15/17 Time of Evaluation: 13:30 - Subjective Subjective: 67 y/o female was seen at bedside this morning with attending Dr. Rocha, 3 days s /p right foot 1st and 2nd digit amputations. Right foot dressing remains clean, dry,intact at time of visit. Pt denies having any pain at this time. Pt denies any acute overnight events. States she is awaiting discharge to rehab. Patient denies any other pedal complaints. Pt denies any recent F/N/V/C/SOB. Objective - Vital Signs/Intake and Output Vital Signs (last 24 hours): Temp Pulse Resp BP Pulse Ox 98.6 F 58 L 20 114/65 98 08/15/17 16:00 08/15/17 16:00 08/15/17 16:00 08/15/17 16:00 08/15/17 16:00 - Labs Labs: 08/15/17 06:54 08/15/17 06:54 PT 11.4 SECONDS (9.7-12.2) 08/08/17 10:30 INR 1.0 08/08/17 10:30 APTT 28 SECONDS (21-34) 08/08/17 10:30 - Constitutional Appears: Well, Non-toxic, No Acute Distress - Extremities Exam Additional comments: Right lower extremity exam: Vasc: DP/PT pulses palpable 1/4. temperature gradient warm to cool. CFT < 3 sec x 3 digits. Minimal non pitting pedal edema noted to medial forefoot at surgical site Derm: Surgical incision sites noted to 1st and 2nd digit amputation sites, with skin edges well coapted and sutures intact. No dehiscence noted. No erythema, no cellulitis, no drainage, no fluctuance Neuro: Protective sensation grossly intact Ortho: Mild tenderness noted to palpation of surgical incision sites - Neurological Exam Neurological Exam: Alert, Awake, Oriented x3 - Psychiatric Exam Psychiatric exam: Normal Affect, Normal Mood Assessment and Plan - Assessment and Plan (Free Text) Assessment: 67 yo female patient 3 days s/p right foot 1st and 2nd digit amputation secondary to gangrene Plan: Patient evaluated at bedside with attending Dr. Rocha Labs and vitals reviewed; afebrile, WBC 5.3 Cont. abx as recommended Surgical sites cleansed with saline and dressed with betadine and DSD Cont. pain meds prn Pt is stable for discharge from podiatry standpoint Wound care orders for nursing at rehab facility to change dressing daily with saline and dress with betadine and DSD
[2017-08-16 17:03] VITALS: O2SAT 96
== END 2017-08-15 19:38 | DRG 240 ==
LOC: C.ER 09:11 → C.9E 12:07 → C.3T 12:36
PROVIDERS: ADMIT Internal Medicine; ATTEND Internal Medicine
PROC: 0Y6M0ZB Detachment at Right Foot, Partial 2nd Ray, Open Approach (ICD-10-PCS; 2017-08-12)
PROC: 0Y6M0Z9 Detachment at Right Foot, Partial 1st Ray, Open Approach (ICD-10-PCS; principal; 2017-08-12 14:15)
DX: E11.52 Type 2 diabetes mellitus with diabetic peripheral angiopathy with gangrene (principal); N17.9 Acute kidney failure, unspecified; E11.621 Type 2 diabetes mellitus with foot ulcer; E11.22 Type 2 diabetes mellitus with diabetic chronic kidney disease; L97.429 Non-pressure chronic ulcer of left heel and midfoot with unspecified severity; L03.90 Cellulitis, unspecified; L97.529 Non-pressure chronic ulcer of other part of left foot with unspecified severity; N18.3 Chronic kidney disease, stage 3 (moderate); I12.9 Hypertensive chronic kidney disease with stage 1 through stage 4 chronic kidney disease, or unspecified chronic kidney disease; I25.10 Atherosclerotic heart disease of native coronary artery without angina pectoris; I70.202 Unspecified atherosclerosis of native arteries of extremities, left leg; J44.9 Chronic obstructive pulmonary disease, unspecified; M19.90 Unspecified osteoarthritis, unspecified site; I70.8 Atherosclerosis of other arteries; E78.00 Pure hypercholesterolemia, unspecified; E78.5 Hyperlipidemia, unspecified; F17.210 Nicotine dependence, cigarettes, uncomplicated; Z79.4 Long term (current) use of insulin; Z80.7 Family history of other malignant neoplasms of lymphoid, hematopoietic and related tissues; Z86.14 Personal history of Methicillin resistant Staphylococcus aureus infection; Z95.5 Presence of coronary angioplasty implant and graft

== ENCOUNTER 2017-08-23 16:46 | Inpatient (IN) | payer MEDICARE, MEDICAID ==
[2017-08-23 16:46] VITALS: BMI 28.5
--- NOTE | 2017-08-23 18:07 | C.PDOC ---
History Of Present Illness 67 year old female, whose PMHx includes HTN, DM and PVD, presents to the ED [facility]. As per prison paperwork, patient is scheduled to undergo an Angiogram by Dr. Nur tomorrow morning. Patient denies fever, chills, abdominal pain. Patient recently underwent amputation of her right first and second toes. PMD: Dr. Lisbeth Delaney Time Seen by Provider: 08/23/17 17:52 Chief Complaint (Nursing): Medical Clearance History Per: Patient History/Exam Limitations: no limitations Onset/Duration Of Symptoms: Hrs Current Symptoms Are (Timing): Still Present Additional History Per: Patient Past Medical History Reviewed: Historical Data, Nursing Documentation, Vital Signs Vital Signs: Last Vital Signs Temp 98 F 08/23/17 17:08 Pulse 56 L 08/23/17 17:08 Resp 18 08/23/17 17:08 BP 127/67 08/23/17 17:08 Pulse Ox 98 08/23/17 18:31 - Medical History PMH: Anemia, Arthritis, Back Problems (sciatica), CAD, Diabetes, HTN, Hypercholesterolemia Denies: Chronic Kidney Disease Surgical History: Coronary Stent (X1), Tonsillectomy - [facility] Procedures ARTHROCENTESIS (07/18/14) DETACHMENT AT RIGHT FOOT, PARTIAL 1ST RAY, OPEN APPROACH (08/08/17) DETACHMENT AT RIGHT FOOT, PARTIAL 2ND RAY, OPEN APPROACH (08/08/17) DILATE R FEM ART W DRUG-ELUT INTRA, DRUG BLLN, PERC (12/08/16) DILATION OF L FEM ART WITH DRUG-ELUT INTRALUM, PERC APPROACH (10/14/15) DILATION OF LEFT EXTERNAL ILIAC VEIN, PERCUTANEOUS APPROACH (11/04/15) DILATION OF LEFT FEMORAL VEIN, PERCUTANEOUS APPROACH (11/04/15) DILATION OF R FEM ART WITH INTRALUM DEV, PERC APPROACH (10/28/15) DILATION OF R POPL ART WITH INTRALUM DEV, PERC APPROACH (10/28/15) DILATION OF RIGHT ANTERIOR TIBIAL ARTERY, PERC APPROACH (03/07/16) DILATION OF RIGHT FEMORAL ARTERY, PERCUTANEOUS APPROACH (03/07/16) DILATION OF RIGHT POPLITEAL ARTERY, PERCUTANEOUS APPROACH (12/08/16) EXTIRPATION OF MATTER FROM L EXT ILIAC VEIN, PERC APPROACH (11/04/15) EXTIRPATION OF MATTER FROM LEFT FEMORAL VEIN, PERC APPROACH (11/04/15) EXTIRPATION OF MATTER FROM R FEM ART, PERC APPROACH (10/28/15) INTRODUCE OTH THROMBOLYTIC IN CENTRAL VEIN, PERC (12/08/16) INTRODUCE OTH THROMBOLYTIC IN PERIPH VEIN, PERC (11/04/15) TRANSFUSE NONAUT RED BLOOD CELLS IN PERIPH VEIN, PERC (11/04/15) VACCINATION NEC (03/02/14) Family History: States: Diabetes - Social History Hx Tobacco Use: Yes Hx Alcohol Use: No Hx Substance Use: No - Immunization History Hx Tetanus Toxoid Vaccination: No Hx Influenza Vaccination: No Hx Pneumococcal Vaccination: Yes (PT UNSURE) Review Of Systems Constitutional: Negative for: Fever, Chills Gastrointestinal: Negative for: Abdominal Pain Physical Exam - Physical Exam Appears: Non-toxic, No Acute Distress Skin: Normal Color, Warm, Dry Head: Atraumatic, Normacephalic Eye(s): bilateral: Normal Inspection Oral Mucosa: Moist Neck: Supple Chest: Symmetrical, No Deformity, No Tenderness Cardiovascular: Rhythm Regular, No Murmur Respiratory: Normal Breath Sounds, No Rales, No Rhonchi, No Wheezing Gastrointestinal/Abdominal: Soft, No Tenderness, No Guarding, No Rebound Extremity: Normal ROM, Capillary Refill (less than 2 seconds ), Other ( amputated right first and second toes covered in dressing ) Neurological/Psych: Oriented x3, Normal Speech, Normal Cognition ED Course And Treatment - Laboratory Results Result Diagrams: 08/23/17 18:50 O2 Sat by Pulse Oximetry: 98 (on RA ) Pulse Ox Interpretation: Normal Medical Decision Making Medical Decision Making: Progress: Bloodwork and UA ordered and reviewed. contact hospitalist for admission. Case going to Dr Melchor Disposition - Disposition Disposition: HOSPITALIZED Disposition Time: 18:25 Condition: STABLE - Clinical Impression Clinical Impression: PVD (peripheral vascular disease), Toe amputation status - PA / [employer] / Resident Statement MD/DO has reviewed & agrees with the documentation as recorded. - Scribe Statement The provider has reviewed the documentation as recorded by the Scribe (Nancy Hassan) All medical record entries made by the Scribe were at my direction and personally dictated by me. I have reviewed the chart and agree that the record accurately reflects my personal performance of the history, physical exam, medical decision making, and the department course for this patient. I have also personally directed, reviewed, and agree with the discharge instructions and disposition.
[2017-08-23 18:47] LABS: SQUAMOUS EPITHIAL < 1 /hpf (0-5); URINE BILIRUBIN NEGATIVE (NEGATIVE); URINE CLARITY Clear (Clear); URINE COLOR Yellow (YELLOW); URINE GLUCOSE (UA) 3+ mg/dL (Normal); URINE LEUKOCYTE ESTERASE NEG Leu/uL (Negative); URINE PROTEIN NEGATIVE (NEGATIVE); URINE UROBILINOGEN NORMAL mg/dL (0.2-1.0)
[2017-08-23 18:53] LABS: EOS # 0.1 K/uL (0.0-0.7); HEMOGLOBIN 8.6 g/dL (11.0-16.0); LYMPH # 1.5 K/uL (1.0-4.3); LYMPH % 28.3 % (20.0-40.0); MEAN CORPUSCULAR HEMOGLOBIN 25.7 pg (27.0-31.0); MEAN CORPUSCULAR HGB CONC 32.9 g/dL (33.0-37.0); MEAN PLATELET VOLUME 8.6 fL (7.2-11.7); MONO # 0.4 K/uL (0.0-0.8); MONO % 8.2 % (0.0-10.0); NEUT # 3.1 K/uL (1.8-7.0); NEUT % 60.5 % (50.0-75.0); NRBC % 0.1 % (0.0-2.0); RBC 3.36 Mil/uL (3.80-5.20); RED CELL DISTRIBUTION WIDTH 13.6 % (11.5-14.5); WHITE BLOOD COUNT 5.2 K/uL (4.8-10.8)
[2017-08-23 19:03] LABS: URINE BLOOD NEGATIVE (NEGATIVE)
[2017-08-23 19:04] LABS: INR 1.1; PROTHROMBIN TIME 12.3 SECONDS (9.7-12.2)
[2017-08-23 19:07] LABS: ALB/GLOB RATIO 0.9 (1.0-2.1); ALBUMIN 3.4 g/dL (3.5-5.0); ALT/SGPT 30 U/L (9-52); AST/SGOT 26 U/L (14-36); BLOOD UREA NITROGEN 17 mg/dL (7-17); CALCIUM 8.5 mg/dl (8.6-10.4); GFR AFRICAN-AMERICAN > 60; GFR NON-AFRICAN AMERICAN 55
--- NOTE | 2017-08-23 19:37 | CP.PCM.HP ---
<Nallely Carmichael - Last Filed: 08/23/17 22:10> History of Present Illness - History of Present Illness History of Present Illness: CC: left foot ulcers HPI: Patient is a 67 y/o F with PMHx of DMII, HTN, HLD, PVD, DVT, CAD, s/p amputation of 1st and 2nd digit of right foot on 08/12/17 who presents today for scheduled angiogram with Dr. Nur tomorrow. Patient has been having increasing pain in her left foot for the past few weeks and has two wounds. Patient says the pain is worst when she puts pressure on the foot and rates it 10/10. Patient also has some pain in her right foot in the area of the amputation. Patient is taking Percocet for the pain usually at night which helps. Patient is currently at a rehab center and his been getting all of her medications daily. Patient admits to constipation and has not had a bowel movement in a few days. Patient has not been sick recently. Patient denies any fevers, shortness of breath, chest pain, abdominal pain, nausea, vomiting or diarrhea. PMD: Dr. García Cardio: Dr. Alvarado Podiatry: Dr. Rocha Vascular: Dr. Nur PMHx: DM, HTN, HLD, PVD, DVT, CAD Social Hx: pack daily for +40 years; denies alcohol and illicit drug use Allergies: seasonal Surgery: peripheral lower extremity stents bilaterally, coronary stent (x1), tonsillectomy, FHx: mother DMII; sister at 27 y/o due to salivary gland CA; brothers due to lymphoma and [facility] Meds: glipizide, metformin, gabapentin, atorvastatin, metoprolol, amlodipine, losartan, eliquis, aspirin, Pepcid, Januvia, tramadol, omega 3 Present on Admission - Present on Admission Any Indicators Present on Admission: Yes History of DVT/PE: Yes History of Uncontrolled Diabetes: No Urinary Catheter: No Decubitus Ulcer Present: Yes Decubitus Ulcer Location: left heel and lateral aspect of left foot Review of Systems - Constitutional Constitutional: absent: Fever - EENT Eyes: absent: Blurred Vision - Cardiovascular Cardiovascular: absent: Chest Pain, Dyspnea, Leg Edema - Respiratory Respiratory: absent: Cough, Dyspnea, Dyspnea on Exertion, Wheezing, Stridor - Gastrointestinal Gastrointestinal: absent: Constipation, Diarrhea, Nausea, Vomiting - Musculoskeletal Musculoskeletal: absent: Numbness, Tingling - Integumentary Integumentary: Skin Ulcer (left foot heel and later aspect of foot ulcer) Additional comments: right foot wrapped in dressing s/p 1st and 2nd digit amputation Past Patient History - Infectious Disease Hx of Infectious Diseases: None - Past Medical History & Family History Past Medical History?: Yes - Past Social History Smoking Status: Light Smoker < 10 Cigarettes Daily - CARDIAC Hx Hypercholesterolemia: Yes Hx Hypertension: Yes - PULMONARY Hx Respiratory Disorders: No - HEENT Hx Cataracts: Yes (BILAT. ) - RENAL Hx Chronic Kidney Disease: No - ENDOCRINE/METABOLIC Hx Endocrine Disorders: Yes Hx Diabetes Mellitus Type 2: Yes - HEMATOLOGICAL/ONCOLOGICAL Hx Anemia: Yes - INTEGUMENTARY Hx Dermatological Problems: No - MUSCULOSKELETAL/RHEUMATOLOGICAL Hx Arthritis: Yes - GASTROINTESTINAL Hx Gastrointestinal Disorders: No - GENITOURINARY/GYNECOLOGICAL Hx Genitourinary Disorders: No - PSYCHIATRIC Hx Substance Use: No - SURGICAL HISTORY Hx Coronary Stent: Yes (X1) Hx Tonsillectomy: Yes - ANESTHESIA Hx Anesthesia: Yes Hx Anesthesia Reactions: No Hx Malignant Hyperthermia: No Meds Allergies/Adverse Reactions: Allergies Allergy/AdvReac Type Severity Reaction Status Date / Time No Known Allergies Allergy Verified 08/23/17 17:06 Physical Exam - Constitutional Appears: Non-toxic, No Acute Distress - Head Exam Head Exam: ATRAUMATIC, NORMAL INSPECTION, NORMOCEPHALIC - Eye Exam Eye Exam: EOMI, Normal appearance - ENT Exam ENT Exam: Mucous Membranes Moist - Respiratory Exam Respiratory Exam: Clear to Auscultation Bilateral, NORMAL BREATHING PATTERN - Cardiovascular Exam Cardiovascular Exam: REGULAR RHYTHM Results - Vital Signs Recent Vital Signs: Last Vital Signs Temp 98 F 08/23/17 17:08 Pulse 56 L 08/23/17 17:08 Resp 18 08/23/17 17:08 BP 127/67 08/23/17 17:08 Pulse Ox 98 08/23/17 19:02 - Labs Result Diagrams: 08/23/17 18:50 08/23/17 18:50 Labs: Laboratory Results - last 24 hr 08/23/17 08/23/17 08/23/17 18:39 18:50 18:50 WBC 5.2 RBC 3.36 L Hgb 8.6 L Hct 26.2 L MCV 78.0 L MCH 25.7 L MCHC 32.9 L RDW 13.6 Plt Count 242 D MPV 8.6 Neut % (Auto) 60.5 Lymph % (Auto) 28.3 Snyder % (Auto) 8.2 Eos % (Auto) 2.0 Baso % (Auto) 1.0 Neut # (Auto) 3.1 Lymph # (Auto) 1.5 Snyder # (Auto) 0.4 Eos # (Auto) 0.1 Baso # (Auto) 0.0 PT 12.3 H INR 1.1 APTT 30 Sodium Potassium Chloride Carbon Dioxide Anion Gap BUN Creatinine Est GFR ( Amer) Est GFR (Non-Af Amer) Random Glucose Calcium Total Bilirubin AST ALT Alkaline Phosphatase Total Protein Albumin Globulin Albumin/Globulin Ratio Urine Color Yellow Urine Clarity Clear Urine pH 5.0 Ur Specific [place] 1.017 Urine Protein Negative Urine Glucose (UA) 3+ H Urine Ketones Negative Urine Blood Negative Urine Nitrate Negative Urine Bilirubin Negative Urine Urobilinogen Normal Ur Leukocyte Esterase Neg Urine WBC (Auto) 1 Urine RBC (Auto) 2 Ur Squamous Epith Cells < 1 08/23/17 18:50 WBC RBC Hgb Hct MCV MCH MCHC RDW Plt Count MPV Neut % (Auto) Lymph % (Auto) Snyder % (Auto) Eos % (Auto) Baso % (Auto) Neut # (Auto) Lymph # (Auto) Snyder # (Auto) Eos # (Auto) Baso # (Auto) PT INR APTT Sodium 136 Potassium 4.7 Chloride 99 Carbon Dioxide 27 Anion Gap 15 BUN 17 Creatinine 1.0 Est GFR ( Amer) > 60 Est GFR (Non-Af Amer) 55 Random Glucose 268 H Calcium 8.5 L Total Bilirubin 0.5 AST 26 ALT 30 Alkaline Phosphatase 57 Total Protein 7.0 Albumin 3.4 L Globulin 3.6 Albumin/Globulin Ratio 0.9 L Urine Color Urine Clarity Urine pH Ur Specific [place] Urine Protein Urine Glucose (UA) Urine Ketones Urine Blood Urine Nitrate Urine Bilirubin Urine Urobilinogen Ur Leukocyte Esterase Urine WBC (Auto) Urine RBC (Auto) Ur Squamous Epith Cells Assessment & Plan - Assessment and Plan (Free Text) Assessment: History of PVD with b/l stents * patient for angiogram b/l legs in am with Dr. Nur * NPO past midnight Left foot ulcers with pain * continue Percocet 5/325mg po 2 tab q4h prn pain * MRI w/out contrast of L foot to r/o osteomyelitis * consult podiatry, Dr. Rocha, help appreciated * f/u ESR, CRP, and Procalcitonin DM * Accuchecks * ISS low dose * hypoglycemic protocol * continue gabapentin 600 mg BID * hold metformin, januvia, and glipizide HTN * Continue home meds: * norvasc 5 mg daily * losartan 25 mg daily * lopressor 50 mg daily HLD * Crestor 20 mg HS * [place] 3 1,000 gm po daily Constipation * Colace 100mg po TID History of DVT * hold home eliquis for surgery - will await surgery recs PPX * GI: pepcid 20 mg daily * DVT: will await recs from podiatry <Nilson Melchor P - Last Filed: 08/24/17 10:47> Results - Vital Signs Recent Vital Signs: Last Vital Signs Temp 98.6 F 08/24/17 08:06 Pulse 67 08/24/17 08:06 Resp 20 08/24/17 08:06 BP 149/76 08/24/17 08:06 Pulse Ox 96 08/24/17 08:06 - Labs Result Diagrams: 08/24/17 07:29 08/24/17 07:29 Labs: Laboratory Results - last 24 hr 08/23/17 08/23/17 08/23/17 18:39 18:50 18:50 WBC 5.2 RBC 3.36 L Hgb 8.6 L Hct 26.2 L MCV 78.0 L MCH 25.7 L MCHC 32.9 L RDW 13.6 Plt Count 242 D MPV 8.6 Neut % (Auto) 60.5 Lymph % (Auto) 28.3 Snyder % (Auto) 8.2 Eos % (Auto) 2.0 Baso % (Auto) 1.0 Neut # (Auto) 3.1 Lymph # (Auto) 1.5 Snyder # (Auto) 0.4 Eos # (Auto) 0.1 Baso # (Auto) 0.0 ESR PT 12.3 H INR 1.1 APTT 30 Sodium Potassium Chloride Carbon Dioxide Anion Gap BUN Creatinine Est GFR ( Amer) Est GFR (Non-Af Amer) POC Glucose (mg/dL) Random Glucose Calcium Phosphorus Magnesium Total Bilirubin AST ALT Alkaline Phosphatase C-React Prot High Sens Total Protein Albumin Globulin Albumin/Globulin Ratio Urine Color Yellow Urine Clarity Clear Urine pH 5.0 Ur Specific [place] 1.017 Urine Protein Negative Urine Glucose (UA) 3+ H Urine Ketones Negative Urine Blood Negative Urine Nitrate Negative Urine Bilirubin Negative Urine Urobilinogen Normal Ur Leukocyte Esterase Neg Urine WBC (Auto) 1 Urine RBC (Auto) 2 Ur Squamous Epith Cells < 1 Blood Type Antibody Screen 08/23/17 08/23/17 08/23/17 18:50 21:46 22:44 WBC RBC Hgb Hct MCV MCH MCHC RDW Plt Count MPV Neut % (Auto) Lymph % (Auto) Snyder % (Auto) Eos % (Auto) Baso % (Auto) Neut # (Auto) Lymph # (Auto) Snyder # (Auto) Eos # (Auto) Baso # (Auto) ESR 85 H PT INR APTT Sodium 136 Potassium 4.7 Chloride 99 Carbon Dioxide 27 Anion Gap 15 BUN 17 Creatinine 1.0 Est GFR ( Amer) > 60 Est GFR (Non-Af Amer) 55 POC Glucose (mg/dL) 366 H Random Glucose 268 H Calcium 8.5 L Phosphorus Magnesium Total Bilirubin 0.5 AST 26 ALT 30 Alkaline Phosphatase 57 C-React Prot High Sens Total Protein 7.0 Albumin 3.4 L Globulin 3.6 Albumin/Globulin Ratio 0.9 L Urine Color Urine Clarity Urine pH Ur Specific [place] Urine Protein Urine Glucose (UA) Urine Ketones Urine Blood Urine Nitrate Urine Bilirubin Urine Urobilinogen Ur Leukocyte Esterase Urine WBC (Auto) Urine RBC (Auto) Ur Squamous Epith Cells Blood Type Antibody Screen 08/23/17 08/24/17 08/24/17 22:44 04:07 07:29 WBC RBC Hgb Hct MCV MCH MCHC RDW Plt Count MPV Neut % (Auto) Lymph % (Auto) Snyder % (Auto) Eos % (Auto) Baso % (Auto) Neut # (Auto) Lymph # (Auto) Snyder # (Auto) Eos # (Auto) Baso # (Auto) ESR PT 11.9 INR 1.1 APTT 29 Sodium Potassium Chloride Carbon Dioxide Anion Gap BUN Creatinine Est GFR ( Amer) Est GFR (Non-Af Amer) POC Glucose (mg/dL) 247 H Random Glucose Calcium Phosphorus Magnesium Total Bilirubin AST ALT Alkaline Phosphatase C-React Prot High Sens 4.02 H Total Protein Albumin Globulin Albumin/Globulin Ratio Urine Color Urine Clarity Urine pH Ur Specific [place] Urine Protein Urine Glucose (UA) Urine Ketones Urine Blood Urine Nitrate Urine Bilirubin Urine Urobilinogen Ur Leukocyte Esterase Urine WBC (Auto) Urine RBC (Auto) Ur Squamous Epith Cells Blood Type Antibody Screen 08/24/17 08/24/17 08/24/17 07:29 07:29 07:29 WBC 4.5 L RBC 3.01 L Hgb 8.0 L Hct 23.5 L MCV 77.9 L MCH 26.5 L MCHC 34.1 RDW 13.5 Plt Count 198 MPV 8.6 Neut % (Auto) 60.6 Lymph % (Auto) 28.0 Snyder % (Auto) 7.7 Eos % (Auto) 2.6 Baso % (Auto) 1.1 Neut # (Auto) 2.7 Lymph # (Auto) 1.3 Snyder # (Auto) 0.3 Eos # (Auto) 0.1 Baso # (Auto) 0.0 ESR PT INR APTT Sodium 138 Potassium 4.5 Chloride 102 Carbon Dioxide 27 Anion Gap 13 BUN 13 Creatinine 0.9 Est GFR ( Amer) > 60 Est GFR (Non-Af Amer) > 60 POC Glucose (mg/dL) Random Glucose 201 H Calcium 8.2 L Phosphorus 3.7 Magnesium 2.1 Total Bilirubin 0.2 AST 17 ALT 25 Alkaline Phosphatase 55 C-React Prot High Sens Total Protein 5.8 L Albumin 2.8 L Globulin 3.0 Albumin/Globulin Ratio 0.9 L Urine Color Urine Clarity Urine pH Ur Specific [place] Urine Protein Urine Glucose (UA) Urine Ketones Urine Blood Urine Nitrate Urine Bilirubin Urine Urobilinogen Ur Leukocyte Esterase Urine WBC (Auto) Urine RBC (Auto) Ur Squamous Epith Cells Blood Type B POSITIVE Antibody Screen Negative Attending/Attestation - Attestation I have personally seen and examined this patient.: Yes I have fully participated in the care of the patient.: Yes I have reviewed all pertinent clinical information: Yes Notes (Text): 67 F has h/o CAD, PVD, tobacco abuse, recent cta showing not patent L SFA stent and left popletial artery brought in by vascular surg for angio and intervention , patient has 2 ulcers on the left foot, with tender left 5th metatarsal at and beyond ulcer with swelling, calcaneal ulcer and tenderness also noticed, poor pulses, and sensation in left toes. Plan Continue with scheduled angio MRI to r/o OM hold abx till om confirmed and start abx post biopsy of bone if + Hold on eliquis till angio done IVF prior to procedure to hydrate kidneys See orders for detail.
[2017-08-23 19:45] VITALS: RESP 20
[2017-08-23] MEDS: Sodium Chloride 0.9% 1,000 ML IV SCH (22:01)
[2017-08-23] MEDS ORDERED: Dextrose 50% SYRINGE Inj (50 ml) IV PRN (22:07)
[2017-08-23] MEDS ORDERED: Glucagon Recombinant 1 mg Inj IM PRN (22:07)
[2017-08-23] MEDS: (Novolin R) Insulin Human Regular 100 units/ml vial SC SCH (22:28)
[2017-08-23] MEDS: Oxycodone/Acetaminophen 5/325 mg Tab PO PRN (22:28)
[2017-08-24] MEDS: Oxycodone/Acetaminophen 5/325 mg Tab PO PRN ×2 (04:05→16:21)
[2017-08-24] MEDS: (Novolin R) Insulin Human Regular 100 units/ml vial SC SCH ×4 (04:45→22:09)
[2017-08-24 07:34] LABS: BASO % 1.1 % (0.0-2.0); EOS # 0.1 K/uL (0.0-0.7); EOS % 2.6 % (0.0-4.0); LYMPH # 1.3 K/uL (1.0-4.3); MEAN CELL VOLUME 77.9 fL (81.0-99.0); MEAN CORPUSCULAR HEMOGLOBIN 26.5 pg (27.0-31.0); MEAN CORPUSCULAR HGB CONC 34.1 g/dL (33.0-37.0); MEAN PLATELET VOLUME 8.6 fL (7.2-11.7); MONO # 0.3 K/uL (0.0-0.8); MONO % 7.7 % (0.0-10.0); NEUT # 2.7 K/uL (1.8-7.0); NEUT % 60.6 % (50.0-75.0); RBC 3.01 Mil/uL (3.80-5.20); RED CELL DISTRIBUTION WIDTH 13.5 % (11.5-14.5); WHITE BLOOD COUNT 4.5 K/uL (4.8-10.8)
[2017-08-24 07:41] LABS: INR 1.1; PROTHROMBIN TIME 11.9 SECONDS (9.7-12.2)
[2017-08-24 07:54] LABS: ALB/GLOB RATIO 0.9 (1.0-2.1); ALBUMIN 2.8 g/dL (3.5-5.0); ALT/SGPT 25 U/L (9-52); AST/SGOT 17 U/L (14-36); BLOOD UREA NITROGEN 13 mg/dL (7-17); CALCIUM 8.2 mg/dl (8.6-10.4); GFR AFRICAN-AMERICAN > 60; GFR NON-AFRICAN AMERICAN > 60
[2017-08-24] MEDS: Sodium Chloride 0.9% 1,000 ML IV SCH ×2 (08:16→17:45)
[2017-08-24] MEDS ORDERED: Propofol 10 mg/ml Inj (20 ML) ONE (08:27)
[2017-08-24] MEDS ORDERED: Midazolam 2 MG/2 ML VIAL ONE (08:28)
[2017-08-24] MEDS ORDERED: Lidocaine Hydrochloride 5 ML INJ ONE (08:28)
[2017-08-24] MEDS ORDERED: Iodixanol 320 MG/ML 100 ML BOTTLE IV ONE (08:41)
[2017-08-24] MEDS ORDERED: Lidocaine 2% Inj (20ml) ONE (08:47)
--- NOTE | 2017-08-24 08:55 | CP.PCM.PN ---
<Kimberly Castillo - Last Filed: 08/24/17 12:42> Subjective - Date & Time of Evaluation Date of Evaluation: 08/24/17 Time of Evaluation: 08:54 - Subjective Subjective: Progress Note for Dr. Baker Patient went for Angiogram and MRI this morning. Patient was seen and examined at bedside afterwards with attending. Patient has no complaints overnight. Patient has pain in her right foot where she had an amputation 08/12/17. Objective - Vital Signs/Intake and Output Vital Signs (last 24 hours): Temp Pulse Resp BP Pulse Ox 98.6 F 67 20 149/76 96 08/24/17 08:06 08/24/17 08:06 08/24/17 08:06 08/24/17 08:06 08/24/17 08:06 Intake and Output: 08/24/17 08/24/17 06:59 18:59 Intake Total 820 Balance 820 - Medications Medications: Current Medications Acetaminophen (Tylenol 325mg Tab) 650 mg PO Q4H PRN PRN Reason: Pain, Mild (1-3) Amlodipine Besylate (Norvasc) 5 mg PO DAILY [facility] Dextrose (Dextrose 50% Inj) 0 ml IV STAT PRN; Protocol PRN Reason: Hypoglycemia Protocol Dextrose (Glutose 15) 0 gm PO ONCE PRN; Protocol PRN Reason: Hypoglycemia Protocol Docusate Sodium (Colace) 100 mg PO TID [facility]Y Famotidine (Pepcid) 20 mg PO DAILY PRN PRN Reason: Heartburn Gabapentin (Neurontin) 600 mg PO TID [facility]Y Glucagon (Glucagen Diagnostic Kit) 0 mg IM STAT PRN; Protocol PRN Reason: Hypoglycemia Protocol Sodium Chloride (Sodium Chloride 0.9%) 1,000 mls @ 100 mls/hr IV .Q10H [facility] Last Admin: 08/24/17 08:16 Dose: Not Given Dextrose (Dextrose 5% In Water 1000 Ml) 1,000 mls @ 0 mls/hr IV .Q0M PRN; Protocol; Per Protocol PRN Reason: Hypoglycemia Protocol Insulin Human Regular (Novolin R) 0 unit SC Q6H [facility] PRN Reason: Protocol Last Admin: 08/24/17 04:45 Dose: Not Given Losartan Potassium (Cozaar) 25 mg PO DAILY [facility] Metoprolol Tartrate (Lopressor) 25 mg PO BID PERRY [id number] Ethyl Esters (Lovaza) 1,000 gm PO DAILY [facility] Oxycodone/Acetaminophen (Percocet 5/325 Mg Tab) 2 tab PO Q4H PRN PRN Reason: Pain, severe (8-10) Stop: 08/26/17 21:16 Last Admin: 08/24/17 04:05 Dose: 2 tab Rosuvastatin Calcium (Crestor) 20 mg PO HS [facility] Last Admin: 08/23/17 22:01 Dose: 20 mg - Labs Labs: 08/24/17 07:29 08/24/17 07:29 PT 11.9 SECONDS (9.7-12.2) 08/24/17 07:29 INR 1.1 08/24/17 07:29 APTT 29 SECONDS (21-34) 08/24/17 07:29 - Constitutional Appears: Non-toxic, No Acute Distress - Head Exam Head Exam: ATRAUMATIC, NORMAL INSPECTION, NORMOCEPHALIC - Eye Exam Eye Exam: EOMI, Normal appearance Pupil Exam: NORMAL ACCOMODATION, PERRL - ENT Exam ENT Exam: Mucous Membranes Moist, Normal Exam - Neck Exam Neck Exam: Full ROM, Normal Inspection. absent: Tenderness, Thyromegaly - Respiratory Exam Respiratory Exam: Clear to Ausculation Bilateral, NORMAL BREATHING PATTERN. absent: Accessory Muscle Use - Cardiovascular Exam Cardiovascular Exam: REGULAR RHYTHM, +S1, +S2 - GI/Abdominal Exam GI & Abdominal Exam: Soft - Extremities Exam Extremities Exam: Normal Capillary Refill Additional comments: left foot heel and later aspect of foot ulcer right foot wrapped in dressing s/p 1st and 2nd digit amputation - Neurological Exam Neurological Exam: Alert, Awake - Psychiatric Exam Psychiatric exam: Normal Affect, Normal Mood - Skin Skin Exam: Dry, Warm Assessment and Plan - Assessment and Plan (Free Text) Assessment: 67F with past medical history of DMII, HTN, HLD, PVD, DVT, CAD, s/p amputation of 1st and 2nd digit of right foot on 08/12/17. History of PVD with b/l stents patient for angiogram b/l legs 08/24 08/24 aortofemoral angiogram via right femoral artery. selective catherization of left femoral artery. pathway atherectomy of left sfa/ popliteal. DCB balloon angioplasty 5 and 6 mm to sfa and popliteal (stented area,) 7mm balloon to proximal SFA. 2.5 mm to anterior tibial. pressure closure right groin Vascular Surgery Consult: Dr. Nur Left foot ulcers with pain continue Percocet 5/325mg po 2 tab q4h prn pain MRI w/out contrast of L foot to r/o osteomyelitis Podiatry Consult: Dr. Rocha ESR 85, CRP 4.02 f/u Procalcitonin Anemia history, current transfuse 1 u PRBC 08/24, consent in chart Dr. Banda consulted DM Accuchecks ISS low dose hypoglycemic protocol continue gabapentin 600 mg BID hold metformin, januvia, and glipizide Diabetic consistent diet HTN Continue home meds: norvasc 5 mg daily losartan 25 mg daily lopressor 50 mg daily HLD Crestor 20 mg HS [place] 3 1,000 gm po daily Constipation Colace 100mg po TID History of DVT hold home eliquis for surgery - will await surgery recs PPX GI: pepcid 20 mg daily DVT: will await recs from podiatry Kimberly Castillo DO PGY1 <Luis Alberto Baker H - Last Filed: 08/24/17 15:53> Objective - Vital Signs/Intake and Output Vital Signs (last 24 hours): Temp Pulse Resp BP Pulse Ox 98.0 F 81 20 187/62 H 96 08/24/17 15:39 08/24/17 15:39 08/24/17 15:39 08/24/17 15:39 08/24/17 08:06 Intake and Output: 08/24/17 08/24/17 06:59 18:59 Intake Total 820 325 Balance 820 325 - Medications Medications: Current Medications Acetaminophen (Tylenol 325mg Tab) 650 mg PO Q4H PRN PRN Reason: Pain, Mild (1-3) Amlodipine Besylate (Norvasc) 5 mg PO DAILY [facility] Last Admin: 08/24/17 14:58 Dose: 5 mg Apixaban (Eliquis) 2.5 mg PO BID [facility] Clopidogrel Bisulfate (Plavix) 75 mg PO DAILY [facility] Dextrose (Dextrose 50% Inj) 0 ml IV STAT PRN; Protocol PRN Reason: Hypoglycemia Protocol Dextrose (Glutose 15) 0 gm PO ONCE PRN; Protocol PRN Reason: Hypoglycemia Protocol Docusate Sodium (Colace) 100 mg PO TID [facility] Last Admin: 08/24/17 14:13 Dose: 100 mg Famotidine (Pepcid) 20 mg PO DAILY PRN PRN Reason: Heartburn Gabapentin (Neurontin) 600 mg PO TID [facility] Last Admin: 08/24/17 14:13 Dose: 600 mg Glucagon (Glucagen Diagnostic Kit) 0 mg IM STAT PRN; Protocol PRN Reason: Hypoglycemia Protocol Sodium Chloride (Sodium Chloride 0.9%) 1,000 mls @ 100 mls/hr IV .Q10H [facility] Last Admin: 08/24/17 08:16 Dose: Not Given Dextrose (Dextrose 5% In Water 1000 Ml) 1,000 mls @ 0 mls/hr IV .Q0M PRN; Protocol; Per Protocol PRN Reason: Hypoglycemia Protocol Insulin Human Regular (Novolin R) 0 unit SC Q6H [facility] PRN Reason: Protocol Last Admin: 08/24/17 11:12 Dose: Not Given Losartan Potassium (Cozaar) 25 mg PO DAILY [facility] Last Admin: 08/24/17 14:58 Dose: 25 mg Metoprolol Tartrate (Lopressor) 25 mg PO BID [facility] Last Admin: 08/24/17 14:58 Dose: 25 mg Ovnob-3-Oppy Ethyl Esters (Lovaza) 1,000 gm PO DAILY [facility] Last Admin: 08/24/17 09:41 Dose: Not Given Oxycodone/Acetaminophen (Percocet 5/325 Mg Tab) 2 tab PO Q4H PRN PRN Reason: Pain, severe (8-10) Stop: 08/26/17 21:16 Last Admin: 08/24/17 04:05 Dose: 2 tab Rosuvastatin Calcium (Crestor) 20 mg PO HS [facility] Last Admin: 08/23/17 22:01 Dose: 20 mg - Labs Labs: 08/24/17 07:29 08/24/17 07:29 PT 11.9 SECONDS (9.7-12.2) 08/24/17 07:29 INR 1.1 08/24/17 07:29 APTT 29 SECONDS (21-34) 08/24/17 07:29 Attending/Attestation - Attestation I have personally seen and examined this patient.: Yes I have fully participated in the care of the patient.: Yes I have reviewed all pertinent clinical information, including history, physical exam and plan: Yes Notes (Text): Medical attending: Patient was seen and examined by me. Agree with the above note by the resident The patient was seen after angiogram. She was doing ok when I saw her. Per cardiology and vascular surgery she will need blood transfusion. We will also get a hematology / oncology evaluation while she is here as well. As documented above the patient has a history of Diabetes, HTN, HLD, PVD, DVT, CAD, and recently amputation of 1st and 2nd digit of right foot thank you Luis Alberto Baker 08/24/17 15:52
[2017-08-24] MEDS ORDERED: Iodixanol 320 MG/ML 200 ML BOTTLE IV ONE (09:02)
[2017-08-24] MEDS: Omega-3-Acid Ethyl Esters 1 GM Cap PO SCH (09:41)
--- NOTE | 2017-08-24 09:55 | CP.PCM.CON ---
History of Present Illness - History of Present Illness History of Present Illness: 67 y/o F with PMHx of DMII, HTN, HLD, PVD, DVT, CAD, s/p amputation of 1st and 2nd digit of right foot on 08/12/17, seen with attending Dr. Rocha regarding right foot amputation site. Patient was seen in Dr. Rocha's office yesterday and some of the stitches were popped to allow for drainage. Patient is going for abdominal angio today with Dr. Nru. Patient was sent from long-term yesterday and was admitted last night. Patient denies any other pedal complaints at this time. Denies n/f/v/c/d/sob. Review of Systems - Constitutional Constitutional: As Per HPI Past Patient History - Infectious Disease Hx of Infectious Diseases: None - Past Medical History & Family History Past Medical History?: Yes - Past Social History Smoking Status: Light Smoker < 10 Cigarettes Daily - CARDIAC Hx Hypercholesterolemia: Yes Hx Hypertension: Yes - PULMONARY Hx Respiratory Disorders: No - HEENT Hx Cataracts: Yes (BILAT. ) - RENAL Hx Chronic Kidney Disease: No - ENDOCRINE/METABOLIC Hx Endocrine Disorders: Yes Hx Diabetes Mellitus Type 2: Yes - HEMATOLOGICAL/ONCOLOGICAL Hx Anemia: Yes - INTEGUMENTARY Hx Dermatological Problems: No - MUSCULOSKELETAL/RHEUMATOLOGICAL Hx Arthritis: Yes - GASTROINTESTINAL Hx Gastrointestinal Disorders: No - GENITOURINARY/GYNECOLOGICAL Hx Genitourinary Disorders: No - PSYCHIATRIC Hx Substance Use: No - SURGICAL HISTORY Hx Coronary Stent: Yes (X1) Hx Tonsillectomy: Yes - ANESTHESIA Hx Anesthesia: Yes Hx Anesthesia Reactions: No Hx Malignant Hyperthermia: No Meds Allergies/Adverse Reactions: Allergies Allergy/AdvReac Type Severity Reaction Status Date / Time No Known Allergies Allergy Verified 08/23/17 17:06 - Medications Medications: Current Medications Acetaminophen (Tylenol 325mg Tab) 650 mg PO Q4H PRN PRN Reason: Pain, Mild (1-3) Amlodipine Besylate (Norvasc) 5 mg PO DAILY [facility] Last Admin: 08/24/17 09:42 Dose: Not Given Dextrose (Dextrose 50% Inj) 0 ml IV STAT PRN; Protocol PRN Reason: Hypoglycemia Protocol Dextrose (Glutose 15) 0 gm PO ONCE PRN; Protocol PRN Reason: Hypoglycemia Protocol Docusate Sodium (Colace) 100 mg PO TID [facility] Last Admin: 08/24/17 09:41 Dose: Not Given Famotidine (Pepcid) 20 mg PO DAILY PRN PRN Reason: Heartburn Gabapentin (Neurontin) 600 mg PO TID [facility] Last Admin: 08/24/17 09:41 Dose: Not Given Glucagon (Glucagen Diagnostic Kit) 0 mg IM STAT PRN; Protocol PRN Reason: Hypoglycemia Protocol Sodium Chloride (Sodium Chloride 0.9%) 1,000 mls @ 100 mls/hr IV .Q10H [facility] Last Admin: 08/24/17 08:16 Dose: Not Given Dextrose (Dextrose 5% In Water 1000 Ml) 1,000 mls @ 0 mls/hr IV .Q0M PRN; Protocol; Per Protocol PRN Reason: Hypoglycemia Protocol Insulin Human Regular (Novolin R) 0 unit SC Q6H [facility] PRN Reason: Protocol Last Admin: 08/24/17 04:45 Dose: Not Given Losartan Potassium (Cozaar) 25 mg PO DAILY [facility] Last Admin: 08/24/17 09:41 Dose: Not Given Metoprolol Tartrate (Lopressor) 25 mg PO BID [facility] Last Admin: 08/24/17 09:41 Dose: Not Given [id number] Ethyl Esters (Lovaza) 1,000 gm PO DAILY [facility] Last Admin: 08/24/17 09:41 Dose: Not Given Oxycodone/Acetaminophen (Percocet 5/325 Mg Tab) 2 tab PO Q4H PRN PRN Reason: Pain, severe (8-10) Stop: 08/26/17 21:16 Last Admin: 08/24/17 04:05 Dose: 2 tab Rosuvastatin Calcium (Crestor) 20 mg PO HS [facility] Last Admin: 08/23/17 22:01 Dose: 20 mg Physical Exam - Constitutional Appears: Well, Non-toxic, No Acute Distress - Extremities Exam Additional comments: Right lower extremity exam: Vasc: DP/PT pulses palpable 1/4. temperature gradient warm to cool. CFT < 3 sec x 3 digits. Minimal non pitting pedal edema noted to medial forefoot at surgical site Derm: Surgical incision sites noted to 1st and 2nd digit amputation sites, with skin edges well coapted and sutures intact. No dehiscence noted. No erythema, no cellulitis, no drainage, no fluctuance Neuro: Protective sensation grossly intact Ortho: Mild tenderness noted to palpation of surgical incision sites - Neurological Exam Neurological exam: Alert, Oriented x3 - Psychiatric Exam Psychiatric exam: Normal Affect, Normal Mood Results - Vital Signs Recent Vital Signs: Last Vital Signs Temp 98.6 F 08/24/17 08:06 Pulse 67 08/24/17 08:06 Resp 20 08/24/17 08:06 BP 149/76 08/24/17 08:06 Pulse Ox 96 08/24/17 08:06 - Labs Result Diagrams: 08/24/17 07:29 08/24/17 07:29 Labs: Laboratory Results - last 24 hr 08/23/17 08/23/17 08/23/17 18:39 18:50 18:50 WBC 5.2 RBC 3.36 L Hgb 8.6 L Hct 26.2 L MCV 78.0 L MCH 25.7 L MCHC 32.9 L RDW 13.6 Plt Count 242 D MPV 8.6 Neut % (Auto) 60.5 Lymph % (Auto) 28.3 [place] % (Auto) 8.2 Eos % (Auto) 2.0 Baso % (Auto) 1.0 Neut # (Auto) 3.1 Lymph # (Auto) 1.5 [place] # (Auto) 0.4 Eos # (Auto) 0.1 Baso # (Auto) 0.0 ESR PT 12.3 H INR 1.1 APTT 30 Sodium Potassium Chloride Carbon Dioxide Anion Gap BUN Creatinine Est GFR ( Amer) Est GFR (Non-Af Amer) POC Glucose (mg/dL) Random Glucose Calcium Phosphorus Magnesium Total Bilirubin AST ALT Alkaline Phosphatase C-React Prot High Sens Total Protein Albumin Globulin Albumin/Globulin Ratio Urine Color Yellow Urine Clarity Clear Urine pH 5.0 Ur Specific [place] 1.017 Urine Protein Negative Urine Glucose (UA) 3+ H Urine Ketones Negative Urine Blood Negative Urine Nitrate Negative Urine Bilirubin Negative Urine Urobilinogen Normal Ur Leukocyte Esterase Neg Urine WBC (Auto) 1 Urine RBC (Auto) 2 Ur Squamous Epith Cells < 1 Blood Type Antibody Screen 08/23/17 08/23/17 08/23/17 18:50 21:46 22:44 WBC RBC Hgb Hct MCV MCH MCHC RDW Plt Count MPV Neut % (Auto) Lymph % (Auto) [place] % (Auto) Eos % (Auto) Baso % (Auto) Neut # (Auto) Lymph # (Auto) [place] # (Auto) Eos # (Auto) Baso # (Auto) ESR 85 H PT INR APTT Sodium 136 Potassium 4.7 Chloride 99 Carbon Dioxide 27 Anion Gap 15 BUN 17 Creatinine 1.0 Est GFR ( Amer) > 60 Est GFR (Non-Af Amer) 55 POC Glucose (mg/dL) 366 H Random Glucose 268 H Calcium 8.5 L Phosphorus Magnesium Total Bilirubin 0.5 AST 26 ALT 30 Alkaline Phosphatase 57 C-React Prot High Sens Total Protein 7.0 Albumin 3.4 L Globulin 3.6 Albumin/Globulin Ratio 0.9 L Urine Color Urine Clarity Urine pH Ur Specific [place] Urine Protein Urine Glucose (UA) Urine Ketones Urine Blood Urine Nitrate Urine Bilirubin Urine Urobilinogen Ur Leukocyte Esterase Urine WBC (Auto) Urine RBC (Auto) Ur Squamous Epith Cells Blood Type Antibody Screen 08/23/17 08/24/17 08/24/17 22:44 04:07 07:29 WBC RBC Hgb Hct MCV MCH MCHC RDW Plt Count MPV Neut % (Auto) Lymph % (Auto) [place] % (Auto) Eos % (Auto) Baso % (Auto) Neut # (Auto) Lymph # (Auto) [place] # (Auto) Eos # (Auto) Baso # (Auto) ESR PT 11.9 INR 1.1 APTT 29 Sodium Potassium Chloride Carbon Dioxide Anion Gap BUN Creatinine Est GFR ( Amer) Est GFR (Non-Af Amer) POC Glucose (mg/dL) 247 H Random Glucose Calcium Phosphorus Magnesium Total Bilirubin AST ALT Alkaline Phosphatase C-React Prot High Sens 4.02 H Total Protein Albumin Globulin Albumin/Globulin Ratio Urine Color Urine Clarity Urine pH Ur Specific [place] Urine Protein Urine Glucose (UA) Urine Ketones Urine Blood Urine Nitrate Urine Bilirubin Urine Urobilinogen Ur Leukocyte Esterase Urine WBC (Auto) Urine RBC (Auto) Ur Squamous Epith Cells Blood Type Antibody Screen 08/24/17 08/24/17 08/24/17 07:29 07:29 07:29 WBC 4.5 L RBC 3.01 L Hgb 8.0 L Hct 23.5 L MCV 77.9 L MCH 26.5 L MCHC 34.1 RDW 13.5 Plt Count 198 MPV 8.6 Neut % (Auto) 60.6 Lymph % (Auto) 28.0 [place] % (Auto) 7.7 Eos % (Auto) 2.6 Baso % (Auto) 1.1 Neut # (Auto) 2.7 Lymph # (Auto) 1.3 [place] # (Auto) 0.3 Eos # (Auto) 0.1 Baso # (Auto) 0.0 ESR PT INR APTT Sodium 138 Potassium 4.5 Chloride 102 Carbon Dioxide 27 Anion Gap 13 BUN 13 Creatinine 0.9 Est GFR ( Amer) > 60 Est GFR (Non-Af Amer) > 60 POC Glucose (mg/dL) Random Glucose 201 H Calcium 8.2 L Phosphorus 3.7 Magnesium 2.1 Total Bilirubin 0.2 AST 17 ALT 25 Alkaline Phosphatase 55 C-React Prot High Sens Total Protein 5.8 L Albumin 2.8 L Globulin 3.0 Albumin/Globulin Ratio 0.9 L Urine Color Urine Clarity Urine pH Ur Specific [place] Urine Protein Urine Glucose (UA) Urine Ketones Urine Blood Urine Nitrate Urine Bilirubin Urine Urobilinogen Ur Leukocyte Esterase Urine WBC (Auto) Urine RBC (Auto) Ur Squamous Epith Cells Blood Type B POSITIVE Antibody Screen Negative Assessment & Plan - Assessment and Plan (Free Text) Assessment: 67 y/o female with pmhx of DMII, HTN, HLD, PVD, DVT, CAD, s/p amputation of 1st and 2nd digit of right foot, seen with attending Dr. Rocha regarding right foot previous amputation site of 1st and 2nd digit Plan: patient evaluated and chart reviewed seen with attending Dr. Rocha labs and vitals reviewed f/u wound cx cont. abx as recommended podiatry will continue to follow while patient remains in house
--- NOTE | 2017-08-24 10:54 | PCM.SURG1 ---
Surgeon's Initial Post Op Note - Surgeon's Notes Surgeon: harris Him Specialists: 0 Type of Anesthesia: IV Sedation Anesthesia Administered By: jojo Pre-Operative Diagnosis: ischemic ulcers left foot/ occluded stents Operative Findings: left sfa stents occluded. peroneal major vessel to foot on left. 70% origin stenosis left anterior tibial. right common femoral stenosi. pressure closure Post-Operative Diagnosis: same Operation Performed: aortofemoral angiogram via right femoral artery. selcctive catherization of left femoral artery. pathway atherectomy of left sfa /popliteal. DCB balloon angioplasty 5 and 6 mm to sfa and popliteal (stented area,) 7mm balloon to proximal sfa. 2.5 mm to anterior tibial. pressure closure right groin Specimen/Specimens Removed: 0 Estimated Blood Loss: EBL {In ML}: 25 Blood Products Given: N/A Drains Used: No Drains Post-Op Condition: Good Date of Surgery/Procedure: 08/24/17 Time of Surgery/Procedure: 10:57
--- NOTE | 2017-08-24 11:28 | CP.PCM.PN ---
Subjective - Date & Time of Evaluation Date of Evaluation: 08/24/17 Time of Evaluation: 11:26 - Subjective Subjective: discussed with Dr levy and Christiano re transfusion possible need for hematology evaluation need for eliquis for a fib and plavix for peripheral intervention Objective - Vital Signs/Intake and Output Vital Signs (last 24 hours): Temp Pulse Resp BP Pulse Ox 98.6 F 67 20 149/76 96 08/24/17 08:06 08/24/17 08:06 08/24/17 08:06 08/24/17 08:06 08/24/17 08:06 Intake and Output: 08/24/17 08/24/17 06:59 18:59 Intake Total 820 Balance 820 - Medications Medications: Current Medications Acetaminophen (Tylenol 325mg Tab) 650 mg PO Q4H PRN PRN Reason: Pain, Mild (1-3) Amlodipine Besylate (Norvasc) 5 mg PO DAILY [facility] Last Admin: 08/24/17 09:42 Dose: Not Given Apixaban (Eliquis) 2.5 mg PO BID [facility] Clopidogrel Bisulfate (Plavix) 75 mg PO DAILY [facility] Dextrose (Dextrose 50% Inj) 0 ml IV STAT PRN; Protocol PRN Reason: Hypoglycemia Protocol Dextrose (Glutose 15) 0 gm PO ONCE PRN; Protocol PRN Reason: Hypoglycemia Protocol Docusate Sodium (Colace) 100 mg PO TID [facility] Last Admin: 08/24/17 09:41 Dose: Not Given Famotidine (Pepcid) 20 mg PO DAILY PRN PRN Reason: Heartburn Gabapentin (Neurontin) 600 mg PO TID [facility] Last Admin: 08/24/17 09:41 Dose: Not Given Glucagon (Glucagen Diagnostic Kit) 0 mg IM STAT PRN; Protocol PRN Reason: Hypoglycemia Protocol Sodium Chloride (Sodium Chloride 0.9%) 1,000 mls @ 100 mls/hr IV .Q10H [facility] Last Admin: 08/24/17 08:16 Dose: Not Given Dextrose (Dextrose 5% In Water 1000 Ml) 1,000 mls @ 0 mls/hr IV .Q0M PRN; Protocol; Per Protocol PRN Reason: Hypoglycemia Protocol Insulin Human Regular (Novolin R) 0 unit SC Q6H [facility] PRN Reason: Protocol Last Admin: 08/24/17 11:12 Dose: Not Given Losartan Potassium (Cozaar) 25 mg PO DAILY [facility] Last Admin: 08/24/17 09:41 Dose: Not Given Metoprolol Tartrate (Lopressor) 25 mg PO BID [facility] Last Admin: 08/24/17 09:41 Dose: Not Given Oebfr-4-Wepo Ethyl Esters (Lovaza) 1,000 gm PO DAILY [facility] Last Admin: 08/24/17 09:41 Dose: Not Given Oxycodone/Acetaminophen (Percocet 5/325 Mg Tab) 2 tab PO Q4H PRN PRN Reason: Pain, severe (8-10) Stop: 08/26/17 21:16 Last Admin: 08/24/17 04:05 Dose: 2 tab Rosuvastatin Calcium (Crestor) 20 mg PO HS [facility] Last Admin: 08/23/17 22:01 Dose: 20 mg - Labs Labs: 08/24/17 07:29 08/24/17 07:29 PT 11.9 SECONDS (9.7-12.2) 08/24/17 07:29 INR 1.1 08/24/17 07:29 APTT 29 SECONDS (21-34) 08/24/17 07:29
--- NOTE | 2017-08-24 19:39 | CP.PCM.CON ---
History of Present Illness - History of Present Illness History of Present Illness: CC: CAD hx of PCI, Dyspnea HPI: Patient is a 67 y/o F with PMHx of DMII, HTN, HLD, PVD, DVT, CAD, s/p amputation of 1st and 2nd digit of right foot on 08/12/17 who presents today for scheduled angiogram with Dr. Nur tomorrow. Patient has been having increasing pain in her left foot for the past few weeks and has two wounds. Patient says the pain is worst when she puts pressure on the foot and rates it 10/10. Patient also has some pain in her right foot in the area of the amputation. Patient is taking Percocet for the pain usually at night which helps. Patient is currently at a rehab center and his been getting all of her medications daily. Patient admits to constipation and has not had a bowel movement in a few days. Patient has not been sick recently. Patient denies any fevers, shortness of breath, chest pain, abdominal pain, nausea, vomiting or diarrhea. PMD: Dr. García Podiatry: Dr. Rocha Vascular: Dr. Nur PMHx: DM, HTN, HLD, PVD, DVT, CAD Social Hx: pack daily for +40 years; denies alcohol and illicit drug use Allergies: seasonal Surgery: peripheral lower extremity stents bilaterally, coronary stent (x1), tonsillectomy, FHx: mother DMII; sister at 27 y/o due to salivary gland CA; brothers due to lymphoma and [place] Meds: glipizide, metformin, gabapentin, atorvastatin, metoprolol, amlodipine, losartan, eliquis, aspirin, Pepcid, Januvia, tramadol, omega 3 Review of Systems - Constitutional Constitutional: absent: Fever - EENT Eyes: absent: Blurred Vision - Cardiovascular Cardiovascular: absent: Chest Pain, Dyspnea, Leg Edema - Respiratory Respiratory: absent: Cough, Dyspnea, Dyspnea on Exertion, Wheezing, Stridor - Gastrointestinal Gastrointestinal: absent: Constipation, Diarrhea, Nausea, Vomiting - Musculoskeletal Musculoskeletal: absent: Numbness, Tingling - Integumentary Integumentary: Skin Ulcer (left foot heel and later aspect of foot ulcer) Additional comments: right foot wrapped in dressing s/p 1st and 2nd digit amputation Physical Exam - Constitutional Appears: Non-toxic, No Acute Distress - Head Exam Head Exam: ATRAUMATIC, NORMAL INSPECTION, NORMOCEPHALIC - Eye Exam Eye Exam: EOMI, Normal appearance - ENT Exam ENT Exam: Mucous Membranes Moist - Respiratory Exam Respiratory Exam: Clear to Auscultation Bilateral, NORMAL BREATHING PATTERN - Cardiovascular Exam Cardiovascular Exam: REGULAR RHYTHM - Extremites Right foot s/p surgery Past Patient History - Infectious Disease Hx of Infectious Diseases: None - Past Medical History & Family History Past Medical History?: Yes - Past Social History Smoking Status: Light Smoker < 10 Cigarettes Daily - CARDIAC Hx Hypercholesterolemia: Yes Hx Hypertension: Yes - PULMONARY Hx Respiratory Disorders: No - HEENT Hx Cataracts: Yes (BILAT. ) - RENAL Hx Chronic Kidney Disease: No - ENDOCRINE/METABOLIC Hx Endocrine Disorders: Yes Hx Diabetes Mellitus Type 2: Yes - HEMATOLOGICAL/ONCOLOGICAL Hx Anemia: Yes - INTEGUMENTARY Hx Dermatological Problems: No - MUSCULOSKELETAL/RHEUMATOLOGICAL Hx Arthritis: Yes - GASTROINTESTINAL Hx Gastrointestinal Disorders: No - GENITOURINARY/GYNECOLOGICAL Hx Genitourinary Disorders: No - PSYCHIATRIC Hx Substance Use: No - SURGICAL HISTORY Hx Coronary Stent: Yes (X1) Hx Tonsillectomy: Yes - ANESTHESIA Hx Anesthesia: Yes Hx Anesthesia Reactions: No Hx Malignant Hyperthermia: No Meds Allergies/Adverse Reactions: Allergies Allergy/AdvReac Type Severity Reaction Status Date / Time No Known Allergies Allergy Verified 08/23/17 17:06 - Medications Medications: Current Medications Acetaminophen (Tylenol 325mg Tab) 650 mg PO Q4H PRN PRN Reason: Pain, Mild (1-3) Amlodipine Besylate (Norvasc) 5 mg PO DAILY [facility] Last Admin: 08/24/17 14:58 Dose: 5 mg Apixaban (Eliquis) 2.5 mg PO BID [facility] Last Admin: 08/24/17 17:47 Dose: 2.5 mg Clopidogrel Bisulfate (Plavix) 75 mg PO DAILY [facility] Dextrose (Dextrose 50% Inj) 0 ml IV STAT PRN; Protocol PRN Reason: Hypoglycemia Protocol Dextrose (Glutose 15) 0 gm PO ONCE PRN; Protocol PRN Reason: Hypoglycemia Protocol Docusate Sodium (Colace) 100 mg PO TID [facility] Last Admin: 08/24/17 17:44 Dose: 100 mg Famotidine (Pepcid) 20 mg PO DAILY PRN PRN Reason: Heartburn Ferric Sodium Gluconate Complex (Ferrlecit) 125 mg IVPB DAILY [facility] Stop: 09/02/17 10:01 Gabapentin (Neurontin) 600 mg PO TID [facility] Last Admin: 08/24/17 17:44 Dose: 600 mg Glucagon (Glucagen Diagnostic Kit) 0 mg IM STAT PRN; Protocol PRN Reason: Hypoglycemia Protocol Sodium Chloride (Sodium Chloride 0.9%) 1,000 mls @ 100 mls/hr IV .Q10H [facility] Last Admin: 08/24/17 17:45 Dose: 100 mls/hr Dextrose (Dextrose 5% In Water 1000 Ml) 1,000 mls @ 0 mls/hr IV .Q0M PRN; Protocol; Per Protocol PRN Reason: Hypoglycemia Protocol Insulin Human Regular (Novolin R) 0 unit SC Q6H [facility] PRN Reason: Protocol Last Admin: 08/24/17 17:43 Dose: 2 unit Losartan Potassium (Cozaar) 25 mg PO DAILY [facility] Last Admin: 08/24/17 14:58 Dose: 25 mg Metoprolol Tartrate (Lopressor) 25 mg PO BID [facility] Last Admin: 08/24/17 17:45 Dose: 25 mg Iupax-0-Tplz Ethyl Esters (Lovaza) 1,000 gm PO DAILY [facility] Last Admin: 08/24/17 09:41 Dose: Not Given Oxycodone/Acetaminophen (Percocet 5/325 Mg Tab) 2 tab PO Q4H PRN PRN Reason: Pain, severe (8-10) Stop: 08/26/17 21:16 Last Admin: 08/24/17 16:21 Dose: 2 tab Rosuvastatin Calcium (Crestor) 20 mg PO HS [facility] Last Admin: 08/23/17 22:01 Dose: 20 mg Results - Vital Signs Recent Vital Signs: Last Vital Signs Temp 98.0 F 08/24/17 15:39 Pulse 81 08/24/17 15:39 Resp 20 08/24/17 15:39 BP 187/62 H 08/24/17 17:45 Pulse Ox 96 08/24/17 08:06 - Labs Result Diagrams: 08/24/17 07:29 08/24/17 07:29 Labs: Laboratory Results - last 24 hr 08/23/17 08/23/17 08/23/17 21:46 22:44 22:44 WBC RBC Hgb Hct MCV MCH MCHC RDW Plt Count MPV Neut % (Auto) Lymph % (Auto) [place] % (Auto) Eos % (Auto) Baso % (Auto) Neut # (Auto) Lymph # (Auto) [place] # (Auto) Eos # (Auto) Baso # (Auto) ESR 85 H PT INR APTT Sodium Potassium Chloride Carbon Dioxide Anion Gap BUN Creatinine Est GFR ( Amer) Est GFR (Non-Af Amer) POC Glucose (mg/dL) 366 H Random Glucose Calcium Phosphorus Magnesium Total Bilirubin AST ALT Alkaline Phosphatase C-React Prot High Sens 4.02 H Total Protein Albumin Globulin Albumin/Globulin Ratio Procalcitonin Blood Type Antibody Screen 08/24/17 08/24/17 08/24/17 04:07 07:29 07:29 WBC RBC Hgb Hct MCV MCH MCHC RDW Plt Count MPV Neut % (Auto) Lymph % (Auto) [place] % (Auto) Eos % (Auto) Baso % (Auto) Neut # (Auto) Lymph # (Auto) [place] # (Auto) Eos # (Auto) Baso # (Auto) ESR PT 11.9 INR 1.1 APTT 29 Sodium Potassium Chloride Carbon Dioxide Anion Gap BUN Creatinine Est GFR ( Amer) Est GFR (Non-Af Amer) POC Glucose (mg/dL) 247 H Random Glucose Calcium Phosphorus Magnesium Total Bilirubin AST ALT Alkaline Phosphatase C-React Prot High Sens Total Protein Albumin Globulin Albumin/Globulin Ratio Procalcitonin Blood Type B POSITIVE Antibody Screen Negative 08/24/17 08/24/17 08/24/17 07:29 07:29 07:29 WBC 4.5 L RBC 3.01 L Hgb 8.0 L Hct 23.5 L MCV 77.9 L MCH 26.5 L MCHC 34.1 RDW 13.5 Plt Count 198 MPV 8.6 Neut % (Auto) 60.6 Lymph % (Auto) 28.0 [place] % (Auto) 7.7 Eos % (Auto) 2.6 Baso % (Auto) 1.1 Neut # (Auto) 2.7 Lymph # (Auto) 1.3 [place] # (Auto) 0.3 Eos # (Auto) 0.1 Baso # (Auto) 0.0 ESR PT INR APTT Sodium 138 Potassium 4.5 Chloride 102 Carbon Dioxide 27 Anion Gap 13 BUN 13 Creatinine 0.9 Est GFR ( Amer) > 60 Est GFR (Non-Af Amer) > 60 POC Glucose (mg/dL) Random Glucose 201 H Calcium 8.2 L Phosphorus 3.7 Magnesium 2.1 Total Bilirubin 0.2 AST 17 ALT 25 Alkaline Phosphatase 55 C-React Prot High Sens Total Protein 5.8 L Albumin 2.8 L Globulin 3.0 Albumin/Globulin Ratio 0.9 L Procalcitonin 0.05 L Blood Type Antibody Screen 08/24/17 08/24/17 12:07 16:32 WBC RBC Hgb Hct MCV MCH MCHC RDW Plt Count MPV Neut % (Auto) Lymph % (Auto) [place] % (Auto) Eos % (Auto) Baso % (Auto) Neut # (Auto) Lymph # (Auto) [place] # (Auto) Eos # (Auto) Baso # (Auto) ESR PT INR APTT Sodium Potassium Chloride Carbon Dioxide Anion Gap BUN Creatinine Est GFR ( Amer) Est GFR (Non-Af Amer) POC Glucose (mg/dL) 190 H 223 H Random Glucose Calcium Phosphorus Magnesium Total Bilirubin AST ALT Alkaline Phosphatase C-React Prot High Sens Total Protein Albumin Globulin Albumin/Globulin Ratio Procalcitonin Blood Type Antibody Screen Assessment & Plan - Assessment and Plan (Free Text) Assessment: Assessment and Plan - Assessment and Plan (Free Text) Assessment: 67F with past medical history of DMII, HTN, HLD, PVD, DVT, CAD, s/p amputation of 1st and 2nd digit of right foot on 08/12/17. History of PVD with b/l stents patient for angiogram b/l legs 08/24 08/24 aortofemoral angiogram via right femoral artery. selective catherization of left femoral artery. pathway atherectomy of left sfa/ popliteal. DCB balloon angioplasty 5 and 6 mm to sfa and popliteal (stented area,) 7mm balloon to proximal SFA. 2.5 mm to anterior tibial. pressure closure right groin Vascular Surgery Consult: Dr. Nur Left foot ulcers with pain continue Percocet 5/325mg po 2 tab q4h prn pain MRI w/out contrast of L foot to r/o osteomyelitis Podiatry Consult: Dr. Rocha ESR 85, CRP 4.02 f/u Procalcitonin Anemia history, current transfuse 1 u PRBC 08/24, consent in chart Dr. Banda consulted DM Accuchecks ISS low dose hypoglycemic protocol continue gabapentin 600 mg BID hold metformin, januvia, and glipizide Diabetic consistent diet HTN Continue home meds: norvasc 5 mg daily losartan 25 mg daily lopressor 50 mg daily HLD Crestor 20 mg HS [place] 3 1,000 gm po daily Constipation Colace 100mg po TID History of DVT hold home eliquis for surgery - will await surgery recs PPX GI: pepcid 20 mg daily DVT: will await recs from podiatry Patient with hx of CAD and multiple stents, Paraxysmal A Fib now anemic Check stool guiac and hold Eliquis for now Transfuse to keep hgb above 10
--- NOTE | 2017-08-25 01:22 | VAS ---
DATE: 08/24/2017. PREOPERATIVE DIAGNOSIS: Gangrene ischemic ulceration left foot. PROCEDURE CARRIED OUT: Aortofemoral angiogram via left groin with selective catheterization of left femoral artery, pathway atherectomy of the left superficial femoral and popliteal artery, balloon angioplasty of the anterior tibial artery using a 2.5 mm balloon and then subsequently a balloon angioplasty of the superficial femoral and popliteal artery using a 5, 6 , and 7 drug-coated balloons. SURGEON: Joseph Nur Jr., MD TAX COMMISSIONER: None. ANESTHESIOLOGIST: Doug Martinez CRNA. INDICATIONS: The patient is a 67-year-old woman who recently stopped smoking who had previous intervention on both legs, which have occluded. Recently, her right leg was treated successfully. She developed gangrene of the foot and had two toes amputated and has patent stents on that side which were treated. On the left side, she has developed ischemic ulceration of the heel with rest pain. OPERATIVE FINDINGS: The aorta, renal arteries were clear of significant occlusive disease. The common iliac, internal iliac and external iliac arteries are free of significant occlusive disease. The right common femoral artery has a 30 to 40% stenosis and the left side had no residual stenosis in the common femoral artery or the profunda. The previous stents went up to, but did not include the profunda femoral artery. On the right side, which has recently been retreated, the two stents were widely patent and the anterior tibial artery hold the major vessel run off in to the foot. On the left side, the entire superficial femoris was occluded and reconstitute the popliteal artery below the knee. Below this, there was disease of anterior tibial artery showing perhaps 70% stenosis at its origin. The peroneal artery was the major vessel into the foot and the posterior tibial artery was occluded and its proximal segment were reconstituted distally. The dorsalis pedis was the major vessel reconstituted into the foot. Subsequent to the performance of diagnostic arteriogram, a stiff-angled guidewire was advanced over the aortic bifurcation with a 7-[place] sheath position in the common femoral artery. First, we were able to cross this the use of we then used a pathway atherectomy device after deploying a filter distally. We heparinizing the patient we then were able to successfully atherectomize this area. After multiple passes we then ballooned this in the popliteal portion with a 5, a 6, and then a 7 mm in the groin after we had completed the angioplasty to touch up the proximal portion. The final cosmetic results were excellent. There were some palpable pulses in the foot. We also angioplastied the origin of the anterior tibial artery with 2.5 mm balloon with successful cosmetic results. We then applied pressure to the groin. The patient had been taking Eliquis and because of this we applied pressure because of the residual stenosis, in the right common femoral artery heavily calcified we did not deploy a closure device without our manual pressure for closure. Blood loss was 25 mL. Operation carried out aortofemoral angiogram via right groin with selective catheterization of left femoral artery, pathway atherectomy of the left superficial and popliteal artery, balloon angioplasty of the popliteal and superficial femoral artery and balloon angioplasty of the anterior tibial artery. Joseph Nur Jr., MD
[2017-08-25] MEDS: (Novolin R) Insulin Human Regular 100 units/ml vial SC SCH ×4 (04:29→22:43)
[2017-08-25] MEDS: Sodium Chloride 0.9% 1,000 ML IV SCH ×3 (05:28→21:10)
[2017-08-25 06:26] LABS: BASO # 0.1 K/uL (0.0-0.2); EOS # 0.1 K/uL (0.0-0.7); EOS % 2.1 % (0.0-4.0); HEMOGLOBIN 9.8 g/dL (11.0-16.0); LYMPH # 1.2 K/uL (1.0-4.3); LYMPH % 19.1 % (20.0-40.0); MEAN CELL VOLUME 78.7 fL (81.0-99.0); MEAN CORPUSCULAR HEMOGLOBIN 26.7 pg (27.0-31.0); MEAN CORPUSCULAR HGB CONC 33.9 g/dL (33.0-37.0); MEAN PLATELET VOLUME 8.5 fL (7.2-11.7); MONO # 0.4 K/uL (0.0-0.8); MONO % 6.2 % (0.0-10.0); NEUT # 4.5 K/uL (1.8-7.0); NEUT % 71.6 % (50.0-75.0); RBC 3.68 Mil/uL (3.80-5.20); RED CELL DISTRIBUTION WIDTH 13.9 % (11.5-14.5); WHITE BLOOD COUNT 6.3 K/uL (4.8-10.8)
[2017-08-25 07:39] LABS: ALB/GLOB RATIO 0.9 (1.0-2.1); ALT/SGPT 31 U/L (9-52); AST/SGOT 19 U/L (14-36); BLOOD UREA NITROGEN 8 mg/dL (7-17); CALCIUM 8.7 mg/dl (8.6-10.4); GFR AFRICAN-AMERICAN > 60; GFR NON-AFRICAN AMERICAN > 60
--- NOTE | 2017-08-25 07:45 | CP.PCM.PN ---
<Kimberly Castillo - Last Filed: 08/25/17 14:05> Subjective - Date & Time of Evaluation Date of Evaluation: 08/25/17 Time of Evaluation: 07:43 - Subjective Subjective: Progress Note for Dr. Baker Patient seen and examined at bedside. No acute events overnight. Patient states her abdominal pain is better than yesterday. Patient still has foot pain and is currently taking pain medication per MAR. No fevers, chills, chest pain, shortness of breath, constipation, diarrhea. Objective - Vital Signs/Intake and Output Vital Signs (last 24 hours): Temp Pulse Resp BP Pulse Ox 98.2 F 83 20 160/65 H 97 08/25/17 00:00 08/25/17 00:00 08/25/17 00:00 08/25/17 00:00 08/25/17 00:00 Intake and Output: 08/25/17 08/25/17 06:59 18:59 Intake Total 1000 Output Total 400 Balance 600 - Medications Medications: Current Medications Acetaminophen (Tylenol 325mg Tab) 650 mg PO Q4H PRN PRN Reason: Pain, Mild (1-3) Amlodipine Besylate (Norvasc) 5 mg PO DAILY [facility] Last Admin: 08/24/17 14:58 Dose: 5 mg Apixaban (Eliquis) 2.5 mg PO BID [facility] Last Admin: 08/24/17 17:47 Dose: 2.5 mg Clopidogrel Bisulfate (Plavix) 75 mg PO DAILY [facility] Dextrose (Dextrose 50% Inj) 0 ml IV STAT PRN; Protocol PRN Reason: Hypoglycemia Protocol Dextrose (Glutose 15) 0 gm PO ONCE PRN; Protocol PRN Reason: Hypoglycemia Protocol Docusate Sodium (Colace) 100 mg PO TID [facility] Last Admin: 08/24/17 17:44 Dose: 100 mg Famotidine (Pepcid) 20 mg PO DAILY PRN PRN Reason: Heartburn Ferric Sodium Gluconate Complex (Ferrlecit) 125 mg IVPB DAILY [facility] Stop: 09/02/17 10:01 Gabapentin (Neurontin) 600 mg PO TID [facility] Last Admin: 08/24/17 17:44 Dose: 600 mg Glucagon (Glucagen Diagnostic Kit) 0 mg IM STAT PRN; Protocol PRN Reason: Hypoglycemia Protocol Sodium Chloride (Sodium Chloride 0.9%) 1,000 mls @ 100 mls/hr IV .Q10H [facility] Last Admin: 08/25/17 05:28 Dose: 100 mls/hr Dextrose (Dextrose 5% In Water 1000 Ml) 1,000 mls @ 0 mls/hr IV .Q0M PRN; Protocol; Per Protocol PRN Reason: Hypoglycemia Protocol Insulin Human Regular (Novolin R) 0 unit SC Q6H [facility] PRN Reason: Protocol Last Admin: 08/25/17 04:29 Dose: Not Given Losartan Potassium (Cozaar) 25 mg PO DAILY [facility] Last Admin: 08/24/17 14:58 Dose: 25 mg Metoprolol Tartrate (Lopressor) 25 mg PO BID [facility] Last Admin: 08/24/17 17:45 Dose: 25 mg Lirze-0-Nudq Ethyl Esters (Lovaza) 1,000 gm PO DAILY [facility] Last Admin: 08/24/17 09:41 Dose: Not Given Oxycodone/Acetaminophen (Percocet 5/325 Mg Tab) 2 tab PO Q4H PRN PRN Reason: Pain, severe (8-10) Stop: 08/26/17 21:16 Last Admin: 08/24/17 16:21 Dose: 2 tab Rosuvastatin Calcium (Crestor) 20 mg PO HS [facility] Last Admin: 08/24/17 22:08 Dose: Not Given - Labs Labs: 08/25/17 06:18 08/25/17 06:18 PT 11.9 SECONDS (9.7-12.2) 08/24/17 07:29 INR 1.1 08/24/17 07:29 APTT 29 SECONDS (21-34) 08/24/17 07:29 - Constitutional Appears: No Acute Distress - Head Exam Head Exam: ATRAUMATIC, NORMAL INSPECTION, NORMOCEPHALIC - Eye Exam Eye Exam: EOMI, Normal appearance - ENT Exam ENT Exam: Mucous Membranes Moist, Normal Exam - Neck Exam Neck Exam: Full ROM, Normal Inspection. absent: Tenderness, Thyromegaly - Cardiovascular Exam Cardiovascular Exam: REGULAR RHYTHM, +S1, +S2. absent: Bradycardia, Tachycardia - GI/Abdominal Exam GI & Abdominal Exam: Soft, Tenderness (lower abdomen ), Normal Bowel Sounds. absent: Firm, Guarding, Rigid, Rebound - Extremities Exam Extremities Exam: Full ROM. absent: Pedal Edema Additional comments: left foot heel and later aspect of foot ulcer right foot wrapped in dressing s/p 1st and 2nd digit amputation - Back Exam Back Exam: Full ROM, NORMAL INSPECTION - Neurological Exam Neurological Exam: Awake, CN II-XII Intact, Normal Gait, Oriented x3 - Psychiatric Exam Psychiatric exam: Normal Affect, Normal Mood - Skin Skin Exam: Dry, Normal Color, Warm Assessment and Plan - Assessment and Plan (Free Text) Assessment: 67F with past medical history of DMII, HTN, HLD, PVD, DVT, CAD, s/p amputation of 1st and 2nd digit of right foot on 08/12/17. History of PVD with b/l stents patient for angiogram b/l legs 08/24 08/24 aortofemoral angiogram via right femoral artery. selective catherization of left femoral artery. pathway atherectomy of left sfa/ popliteal. DCB balloon angioplasty 5 and 6 mm to sfa and popliteal (stented area,) 7mm balloon to proximal SFA. 2.5 mm to anterior tibial. pressure closure right groin Vascular Surgery Consult: Dr. Nur f/u MRI of lower extremity Left foot ulcers with pain continue Percocet 5/325mg po 2 tab q4h prn pain MRI w/out contrast of L foot to r/o osteomyelitis Podiatry Consult: Dr. Rocha ESR 85, CRP 4.02 f/u Procalcitonin Anemia history, current transfuse 1 u PRBC 08/24, consent in chart Dr. Banda consult: on Eliquis 2.5mg BID. hold anticoagulation if H/H cont. to drop DM Accuchecks ISS low dose hypoglycemic protocol continue gabapentin 600 mg BID hold metformin, januvia, and glipizide Diabetic consistent diet HTN Continue home meds: norvasc 5 mg daily losartan 25 mg daily lopressor 50 mg daily HLD Crestor 20 mg HS [place] 3 1,000 gm po daily Constipation Colace 100mg po TID History of DVT hold home eliquis for surgery - will await surgery recs PPX GI: pepcid 20 mg daily DVT: will await recs from podiatry Kimberly Castillo DO PGY1 <Luis Alberto Baker H - Last Filed: 08/25/17 14:56> Objective - Vital Signs/Intake and Output Vital Signs (last 24 hours): Temp Pulse Resp BP Pulse Ox 98.4 F 84 20 175/71 H 96 08/25/17 07:35 08/25/17 07:35 08/25/17 07:35 08/25/17 10:32 08/25/17 07:35 Intake and Output: 08/25/17 08/25/17 06:59 18:59 Intake Total 1000 2320 Output Total 400 Balance 600 2320 - Medications Medications: Current Medications Acetaminophen (Tylenol 325mg Tab) 650 mg PO Q4H PRN PRN Reason: Pain, Mild (1-3) Amlodipine Besylate (Norvasc) 5 mg PO DAILY [facility] Last Admin: 08/25/17 10:32 Dose: 5 mg Apixaban (Eliquis) 2.5 mg PO BID [facility] Last Admin: 08/25/17 10:31 Dose: 2.5 mg Clopidogrel Bisulfate (Plavix) 75 mg PO DAILY [facility] Last Admin: 08/25/17 10:31 Dose: 75 mg Dextrose (Dextrose 50% Inj) 0 ml IV STAT PRN; Protocol PRN Reason: Hypoglycemia Protocol Dextrose (Glutose 15) 0 gm PO ONCE PRN; Protocol PRN Reason: Hypoglycemia Protocol Docusate Sodium (Colace) 100 mg PO TID [facility] Last Admin: 08/25/17 13:46 Dose: 100 mg Famotidine (Pepcid) 20 mg PO DAILY PRN PRN Reason: Heartburn Ferric Sodium Gluconate Complex (Ferrlecit) 125 mg IVPB DAILY [facility] Stop: 09/02/17 10:01 Last Admin: 08/25/17 10:31 Dose: 125 mg Gabapentin (Neurontin) 600 mg PO TID [facility] Last Admin: 08/25/17 13:46 Dose: 600 mg Glucagon (Glucagen Diagnostic Kit) 0 mg IM STAT PRN; Protocol PRN Reason: Hypoglycemia Protocol Sodium Chloride (Sodium Chloride 0.9%) 1,000 mls @ 100 mls/hr IV .Q10H [facility] Last Admin: 08/25/17 13:47 Dose: Not Given Dextrose (Dextrose 5% In Water 1000 Ml) 1,000 mls @ 0 mls/hr IV .Q0M PRN; Protocol; Per Protocol PRN Reason: Hypoglycemia Protocol Insulin Human Regular (Novolin R) 0 unit SC Q6H [facility] PRN Reason: Protocol Last Admin: 08/25/17 12:25 Dose: 4 unit Losartan Potassium (Cozaar) 25 mg PO DAILY [facility] Last Admin: 08/25/17 10:32 Dose: 25 mg Metoprolol Tartrate (Lopressor) 25 mg PO BID [facility] Last Admin: 08/25/17 10:32 Dose: 25 mg Gdexx-3-Qeyu Ethyl Esters (Lovaza) 1 gm PO DAILY [facility] Last Admin: 08/25/17 12:18 Dose: 1 gm Oxycodone/Acetaminophen (Percocet 5/325 Mg Tab) 2 tab PO Q4H PRN PRN Reason: Pain, severe (8-10) Stop: 08/26/17 21:16 Last Admin: 08/25/17 12:16 Dose: 2 tab Rosuvastatin Calcium (Crestor) 20 mg PO HS [facility] Last Admin: 08/24/17 22:08 Dose: Not Given - Labs Labs: 08/25/17 06:18 08/25/17 06:18 PT 11.9 SECONDS (9.7-12.2) 08/24/17 07:29 INR 1.1 08/24/17 07:29 APTT 29 SECONDS (21-34) 08/24/17 07:29 Attending/Attestation - Attestation I have personally seen and examined this patient.: Yes I have fully participated in the care of the patient.: Yes I have reviewed all pertinent clinical information, including history, physical exam and plan: Yes Notes (Text): 08/25/17 14:56 Medical attending: Patient was seen and examined by me, agrees the above note by the medical lab specialist. At this moment were currently waiting on the results of the lower extremity MRI. Were try to assess if there is potential for osteomyelitis or not she does not report any fevers, denies chills, and her white blood cell count has been stable. As we previously mentioned there is a lateral wound at the base of the fifth metatarsal. As well as 2 small calcaneal wounds on the left foot. As previously mentioned the patient is s/p feft SFA/Pop atherectomy and drug elluting balloon angioplasty on 08/24/17. Today she reported that she had much less pain than before. And she didn't have any acute concerns when we saw her. So at this moment were waiting on the MRI Thank you very much, Luis Alberto Baker
--- NOTE | 2017-08-25 07:59 | CP.PCM.PN ---
Subjective - Date & Time of Evaluation Date of Evaluation: 08/25/17 Time of Evaluation: 06:40 - Subjective Subjective: Vascular Surgery Progress note. Dr. Nur Pt seen and examined at bedside. No acute events overnight. As per nursing documentation, received incomplete blood transfusion yesterday as her IV infiltrated during the transfusion. Patient denies any complaints this morning. No pain, no swelling. Right groin site clean, dry and intact, no signs of bleeding. Objective - Vital Signs/Intake and Output Vital Signs (last 24 hours): Temp Pulse Resp BP Pulse Ox 98.2 F 83 20 160/65 H 97 08/25/17 00:00 08/25/17 00:00 08/25/17 00:00 08/25/17 00:00 08/25/17 00:00 Intake and Output: 08/25/17 08/25/17 06:59 18:59 Intake Total 1000 Output Total 400 Balance 600 - Medications Medications: Current Medications Acetaminophen (Tylenol 325mg Tab) 650 mg PO Q4H PRN PRN Reason: Pain, Mild (1-3) Amlodipine Besylate (Norvasc) 5 mg PO DAILY [facility] Last Admin: 08/24/17 14:58 Dose: 5 mg Apixaban (Eliquis) 2.5 mg PO BID [facility] Last Admin: 08/24/17 17:47 Dose: 2.5 mg Clopidogrel Bisulfate (Plavix) 75 mg PO DAILY [facility] Dextrose (Dextrose 50% Inj) 0 ml IV STAT PRN; Protocol PRN Reason: Hypoglycemia Protocol Dextrose (Glutose 15) 0 gm PO ONCE PRN; Protocol PRN Reason: Hypoglycemia Protocol Docusate Sodium (Colace) 100 mg PO TID [facility] Last Admin: 08/24/17 17:44 Dose: 100 mg Famotidine (Pepcid) 20 mg PO DAILY PRN PRN Reason: Heartburn Ferric Sodium Gluconate Complex (Ferrlecit) 125 mg IVPB DAILY [facility] Stop: 09/02/17 10:01 Gabapentin (Neurontin) 600 mg PO TID [facility] Last Admin: 08/24/17 17:44 Dose: 600 mg Glucagon (Glucagen Diagnostic Kit) 0 mg IM STAT PRN; Protocol PRN Reason: Hypoglycemia Protocol Sodium Chloride (Sodium Chloride 0.9%) 1,000 mls @ 100 mls/hr IV .Q10H [facility] Last Admin: 08/25/17 05:28 Dose: 100 mls/hr Dextrose (Dextrose 5% In Water 1000 Ml) 1,000 mls @ 0 mls/hr IV .Q0M PRN; Protocol; Per Protocol PRN Reason: Hypoglycemia Protocol Insulin Human Regular (Novolin R) 0 unit SC Q6H [facility] PRN Reason: Protocol Last Admin: 08/25/17 04:29 Dose: Not Given Losartan Potassium (Cozaar) 25 mg PO DAILY [facility] Last Admin: 08/24/17 14:58 Dose: 25 mg Metoprolol Tartrate (Lopressor) 25 mg PO BID [facility] Last Admin: 08/24/17 17:45 Dose: 25 mg Vsbuz-3-Awie Ethyl Esters (Lovaza) 1,000 gm PO DAILY [facility] Last Admin: 08/24/17 09:41 Dose: Not Given Oxycodone/Acetaminophen (Percocet 5/325 Mg Tab) 2 tab PO Q4H PRN PRN Reason: Pain, severe (8-10) Stop: 08/26/17 21:16 Last Admin: 08/24/17 16:21 Dose: 2 tab Rosuvastatin Calcium (Crestor) 20 mg PO HS [facility] Last Admin: 08/24/17 22:08 Dose: Not Given - Labs Labs: 08/25/17 06:18 08/25/17 06:18 PT 11.9 SECONDS (9.7-12.2) 08/24/17 07:29 INR 1.1 08/24/17 07:29 APTT 29 SECONDS (21-34) 08/24/17 07:29 - Constitutional Appears: Well, Non-toxic, No Acute Distress - Head Exam Head Exam: ATRAUMATIC, NORMAL INSPECTION, NORMOCEPHALIC - Eye Exam Eye Exam: EOMI, Normal appearance - ENT Exam ENT Exam: Mucous Membranes Moist - Respiratory Exam Respiratory Exam: NORMAL BREATHING PATTERN. absent: Accessory Muscle Use, Respiratory Distress - Cardiovascular Exam Cardiovascular Exam: RRR. absent: JVD - GI/Abdominal Exam GI & Abdominal Exam: Soft. absent: Distended, Firm, Guarding, Rigid, Tenderness - Extremities Exam Additional comments: Right groin puncture site, clean, dry and intact. left lower extremity warm. Foot dressing clean, dry and intact. - Neurological Exam Neurological Exam: Alert, Awake, Oriented x3 - Psychiatric Exam Psychiatric exam: Normal Affect, Normal Mood - Skin Skin Exam: Dry, Intact, Normal Color, Warm Assessment and Plan - Assessment and Plan (Free Text) Assessment: 67yo F with severe PVD. S/p Left SFA/Pop atherectomy and Drug elluting balloon angioplasty 08/24/17. POD1 Plan: - No further vascular surgery interventions indicated at this time - Continue antiplatelet. Continue Anticoag. - f/u podiatry recs Further recs as per Dr. Liudmila Llanos PGY1 surgery pager: [phone]
[2017-08-25] MEDS: Ferric Sodium Gluconat Complex 62.5 mg/5 ml Vial IVPB SCH (10:31)
[2017-08-25] MEDS: Oxycodone/Acetaminophen 5/325 mg Tab PO PRN ×2 (12:16→21:10)
[2017-08-25] MEDS: Omega-3-Acid Ethyl Esters 1 GM Cap PO SCH ×2 (12:18→14:30)
--- NOTE | 2017-08-25 12:48 | CP.PCM.CON ---
History of Present Illness - History of Present Illness History of Present Illness: 67 y/o F with PMHx of DMII, HTN, HLD, PVD, DVT, CAD, s/p amputation of 1st and 2nd digit of right foot on 08/12/17, seen with attending Dr. Rocha regarding right foot amputation site. Patient was seen in Dr. Rocha's office yesterday and some of the stitches were popped to allow for drainage. Patient is going for abdominal angio today with Dr. Nur. Patient was [facility] and was admitted last night. Patient denies any other pedal complaints at this time. Denies n/f/v/c/d/sob. Past Patient History - Infectious Disease Hx of Infectious Diseases: None - Past Medical History & Family History Past Medical History?: Yes - Past Social History Smoking Status: Light Smoker < 10 Cigarettes Daily - CARDIAC Hx Hypercholesterolemia: Yes Hx Hypertension: Yes - PULMONARY Hx Respiratory Disorders: No - HEENT Hx Cataracts: Yes (BILAT. ) - RENAL Hx Chronic Kidney Disease: No - ENDOCRINE/METABOLIC Hx Endocrine Disorders: Yes Hx Diabetes Mellitus Type 2: Yes - HEMATOLOGICAL/ONCOLOGICAL Hx Anemia: Yes - INTEGUMENTARY Hx Dermatological Problems: No - MUSCULOSKELETAL/RHEUMATOLOGICAL Hx Arthritis: Yes - GASTROINTESTINAL Hx Gastrointestinal Disorders: No - GENITOURINARY/GYNECOLOGICAL Hx Genitourinary Disorders: No - PSYCHIATRIC Hx Substance Use: No - SURGICAL HISTORY Hx Coronary Stent: Yes (X1) Hx Tonsillectomy: Yes - ANESTHESIA Hx Anesthesia: Yes Hx Anesthesia Reactions: No Hx Malignant Hyperthermia: No Meds Allergies/Adverse Reactions: Allergies Allergy/AdvReac Type Severity Reaction Status Date / Time No Known Allergies Allergy Verified 08/23/17 17:06 - Medications Medications: Current Medications Acetaminophen (Tylenol 325mg Tab) 650 mg PO Q4H PRN PRN Reason: Pain, Mild (1-3) Amlodipine Besylate (Norvasc) 5 mg PO DAILY [facility] Last Admin: 08/25/17 10:32 Dose: 5 mg Apixaban (Eliquis) 2.5 mg PO BID [facility] Last Admin: 08/25/17 10:31 Dose: 2.5 mg Clopidogrel Bisulfate (Plavix) 75 mg PO DAILY [facility] Last Admin: 08/25/17 10:31 Dose: 75 mg Dextrose (Dextrose 50% Inj) 0 ml IV STAT PRN; Protocol PRN Reason: Hypoglycemia Protocol Dextrose (Glutose 15) 0 gm PO ONCE PRN; Protocol PRN Reason: Hypoglycemia Protocol Docusate Sodium (Colace) 100 mg PO TID [facility] Last Admin: 08/25/17 10:31 Dose: 100 mg Famotidine (Pepcid) 20 mg PO DAILY PRN PRN Reason: Heartburn Ferric Sodium Gluconate Complex (Ferrlecit) 125 mg IVPB DAILY [facility] Stop: 09/02/17 10:01 Last Admin: 08/25/17 10:31 Dose: 125 mg Gabapentin (Neurontin) 600 mg PO TID [facility] Last Admin: 08/25/17 10:32 Dose: 600 mg Glucagon (Glucagen Diagnostic Kit) 0 mg IM STAT PRN; Protocol PRN Reason: Hypoglycemia Protocol Sodium Chloride (Sodium Chloride 0.9%) 1,000 mls @ 100 mls/hr IV .Q10H [facility] Last Admin: 08/25/17 05:28 Dose: 100 mls/hr Dextrose (Dextrose 5% In Water 1000 Ml) 1,000 mls @ 0 mls/hr IV .Q0M PRN; Protocol; Per Protocol PRN Reason: Hypoglycemia Protocol Insulin Human Regular (Novolin R) 0 unit SC Q6H [facility] PRN Reason: Protocol Last Admin: 08/25/17 12:25 Dose: 4 unit Losartan Potassium (Cozaar) 25 mg PO DAILY [facility] Last Admin: 08/25/17 10:32 Dose: 25 mg Metoprolol Tartrate (Lopressor) 25 mg PO BID [facility] Last Admin: 08/25/17 10:32 Dose: 25 mg Ztwph-7-Beqr Ethyl Esters (Lovaza) 1 gm PO DAILY [facility] Last Admin: 08/25/17 12:18 Dose: 1 gm Oxycodone/Acetaminophen (Percocet 5/325 Mg Tab) 2 tab PO Q4H PRN PRN Reason: Pain, severe (8-10) Stop: 08/26/17 21:16 Last Admin: 08/25/17 12:16 Dose: 2 tab Rosuvastatin Calcium (Crestor) 20 mg PO HS [facility] Last Admin: 08/24/17 22:08 Dose: Not Given Results - Vital Signs Recent Vital Signs: Last Vital Signs Temp 98.4 F 08/25/17 07:35 Pulse 84 08/25/17 07:35 Resp 20 08/25/17 07:35 BP 175/71 H 08/25/17 10:32 Pulse Ox 96 08/25/17 07:35 - Labs Result Diagrams: 08/25/17 06:18 08/25/17 06:18 Labs: Laboratory Results - last 24 hr 08/24/17 08/24/17 08/24/17 07:29 16:32 21:04 WBC RBC Hgb Hct MCV MCH MCHC RDW Plt Count MPV Neut % (Auto) Lymph % (Auto) [place] % (Auto) Eos % (Auto) Baso % (Auto) Neut # (Auto) Lymph # (Auto) [place] # (Auto) Eos # (Auto) Baso # (Auto) Sodium Potassium Chloride Carbon Dioxide Anion Gap BUN Creatinine Est GFR ( Amer) Est GFR (Non-Af Amer) POC Glucose (mg/dL) 223 H 191 H Random Glucose Calcium Phosphorus Magnesium Total Bilirubin AST ALT Alkaline Phosphatase Total Protein Albumin Globulin Albumin/Globulin Ratio Blood Type B POSITIVE Antibody Screen Negative 08/25/17 08/25/17 08/25/17 04:14 06:18 06:18 WBC 6.3 RBC 3.68 L Hgb 9.8 L Hct 29.0 L MCV 78.7 L MCH 26.7 L MCHC 33.9 RDW 13.9 Plt Count 219 MPV 8.5 Neut % (Auto) 71.6 Lymph % (Auto) 19.1 L [place] % (Auto) 6.2 Eos % (Auto) 2.1 Baso % (Auto) 1.0 Neut # (Auto) 4.5 Lymph # (Auto) 1.2 [place] # (Auto) 0.4 Eos # (Auto) 0.1 Baso # (Auto) 0.1 Sodium 138 Potassium 4.0 Chloride 103 Carbon Dioxide 26 Anion Gap 13 BUN 8 Creatinine 0.7 Est GFR ( Amer) > 60 Est GFR (Non-Af Amer) > 60 POC Glucose (mg/dL) 167 H Random Glucose 162 H Calcium 8.7 Phosphorus 3.3 Magnesium 2.0 Total Bilirubin 0.5 AST 19 ALT 31 Alkaline Phosphatase 64 Total Protein 6.3 Albumin 3.0 L Globulin 3.2 Albumin/Globulin Ratio 0.9 L Blood Type Antibody Screen 08/25/17 10:54 WBC RBC Hgb Hct MCV MCH MCHC RDW Plt Count MPV Neut % (Auto) Lymph % (Auto) [place] % (Auto) Eos % (Auto) Baso % (Auto) Neut # (Auto) Lymph # (Auto) [place] # (Auto) Eos # (Auto) Baso # (Auto) Sodium Potassium Chloride Carbon Dioxide Anion Gap BUN Creatinine Est GFR ( Amer) Est GFR (Non-Af Amer) POC Glucose (mg/dL) 315 H Random Glucose Calcium Phosphorus Magnesium Total Bilirubin AST ALT Alkaline Phosphatase Total Protein Albumin Globulin Albumin/Globulin Ratio Blood Type Antibody Screen
--- NOTE | 2017-08-25 13:56 | CP.PCM.CON ---
History of Present Illness - History of Present Illness History of Present Illness: 67 year old female with a history of RLE DVT on Eliquis, HL, HTN, DM, PVD s/p recent toe amputation admitted for angiogram, found to be anemic. The patient denies abnormal bleeding but does bruise easily. She notes to progressive fatigue and increasing foot pain. Her pain is worse with pressure but takes Percocet which helps. She has never had a colonoscopy. Her hgb in the ER was 7.5 and she is s/p 1 U pRBC. Past medical history: RLE DVT on Eliquis, HL, HTN, DM, PVD s/p recent toe amputation Past surgical history: Toe amputation Family history: Sister had H+N cancer, brother had lymphoma Social history: Former tobacco abuse, denies alcohol, and illicit drug use. Allergies: NKDA Review of systems: All remaining review of systems including HEENT, cardiovacular, respiratory, gastrointestinal, genitourinary, musculoskeletal, dermatologic, neurologic, and psychiatric are negative unless mentioned in the HPI. Past Patient History - Infectious Disease Hx of Infectious Diseases: None - Past Medical History & Family History Past Medical History?: Yes - Past Social History Smoking Status: Light Smoker < 10 Cigarettes Daily - CARDIAC Hx Hypercholesterolemia: Yes Hx Hypertension: Yes - PULMONARY Hx Respiratory Disorders: No - HEENT Hx Cataracts: Yes (BILAT. ) - RENAL Hx Chronic Kidney Disease: No - ENDOCRINE/METABOLIC Hx Endocrine Disorders: Yes Hx Diabetes Mellitus Type 2: Yes - HEMATOLOGICAL/ONCOLOGICAL Hx Anemia: Yes - INTEGUMENTARY Hx Dermatological Problems: No - MUSCULOSKELETAL/RHEUMATOLOGICAL Hx Arthritis: Yes - GASTROINTESTINAL Hx Gastrointestinal Disorders: No - GENITOURINARY/GYNECOLOGICAL Hx Genitourinary Disorders: No - PSYCHIATRIC Hx Substance Use: No - SURGICAL HISTORY Hx Coronary Stent: Yes (X1) Hx Tonsillectomy: Yes - ANESTHESIA Hx Anesthesia: Yes Hx Anesthesia Reactions: No Hx Malignant Hyperthermia: No Meds Allergies/Adverse Reactions: Allergies Allergy/AdvReac Type Severity Reaction Status Date / Time No Known Allergies Allergy Verified 08/23/17 17:06 - Medications Medications: Current Medications Acetaminophen (Tylenol 325mg Tab) 650 mg PO Q4H PRN PRN Reason: Pain, Mild (1-3) Amlodipine Besylate (Norvasc) 5 mg PO DAILY [facility] Last Admin: 08/25/17 10:32 Dose: 5 mg Apixaban (Eliquis) 2.5 mg PO BID [facility] Last Admin: 08/25/17 10:31 Dose: 2.5 mg Clopidogrel Bisulfate (Plavix) 75 mg PO DAILY [facility] Last Admin: 08/25/17 10:31 Dose: 75 mg Dextrose (Dextrose 50% Inj) 0 ml IV STAT PRN; Protocol PRN Reason: Hypoglycemia Protocol Dextrose (Glutose 15) 0 gm PO ONCE PRN; Protocol PRN Reason: Hypoglycemia Protocol Docusate Sodium (Colace) 100 mg PO TID [facility] Last Admin: 08/25/17 13:46 Dose: 100 mg Famotidine (Pepcid) 20 mg PO DAILY PRN PRN Reason: Heartburn Ferric Sodium Gluconate Complex (Ferrlecit) 125 mg IVPB DAILY [facility] Stop: 09/02/17 10:01 Last Admin: 08/25/17 10:31 Dose: 125 mg Gabapentin (Neurontin) 600 mg PO TID [facility] Last Admin: 08/25/17 13:46 Dose: 600 mg Glucagon (Glucagen Diagnostic Kit) 0 mg IM STAT PRN; Protocol PRN Reason: Hypoglycemia Protocol Sodium Chloride (Sodium Chloride 0.9%) 1,000 mls @ 100 mls/hr IV .Q10H [facility] Last Admin: 08/25/17 13:47 Dose: Not Given Dextrose (Dextrose 5% In Water 1000 Ml) 1,000 mls @ 0 mls/hr IV .Q0M PRN; Protocol; Per Protocol PRN Reason: Hypoglycemia Protocol Insulin Human Regular (Novolin R) 0 unit SC Q6H [facility] PRN Reason: Protocol Last Admin: 08/25/17 12:25 Dose: 4 unit Losartan Potassium (Cozaar) 25 mg PO DAILY [facility] Last Admin: 08/25/17 10:32 Dose: 25 mg Metoprolol Tartrate (Lopressor) 25 mg PO BID [facility] Last Admin: 08/25/17 10:32 Dose: 25 mg [id number] Ethyl Esters (Lovaza) 1 gm PO DAILY [facility] Last Admin: 08/25/17 12:18 Dose: 1 gm Oxycodone/Acetaminophen (Percocet 5/325 Mg Tab) 2 tab PO Q4H PRN PRN Reason: Pain, severe (8-10) Stop: 08/26/17 21:16 Last Admin: 08/25/17 12:16 Dose: 2 tab Rosuvastatin Calcium (Crestor) 20 mg PO HS [facility] Last Admin: 08/24/17 22:08 Dose: Not Given Physical Exam - Head Exam Head Exam: ATRAUMATIC - Eye Exam Eye Exam: Normal appearance - ENT Exam ENT Exam: Mucous Membranes Dry - Respiratory Exam Respiratory Exam: NORMAL BREATHING PATTERN - Cardiovascular Exam Cardiovascular Exam: +S1, +S2 - GI/Abdominal Exam GI & Abdominal Exam: Normal Bowel Sounds - Extremities Exam Additional comments: Right foot dressing Results - Vital Signs Recent Vital Signs: Last Vital Signs Temp 98.4 F 08/25/17 07:35 Pulse 84 08/25/17 07:35 Resp 20 08/25/17 07:35 BP 175/71 H 08/25/17 10:32 Pulse Ox 96 08/25/17 07:35 - Labs Result Diagrams: 08/25/17 06:18 08/25/17 06:18 Labs: Laboratory Results - last 24 hr 08/24/17 08/24/17 08/25/17 16:32 21:04 04:14 WBC RBC Hgb Hct MCV MCH MCHC RDW Plt Count MPV Neut % (Auto) Lymph % (Auto) [place] % (Auto) Eos % (Auto) Baso % (Auto) Neut # (Auto) Lymph # (Auto) [place] # (Auto) Eos # (Auto) Baso # (Auto) Sodium Potassium Chloride Carbon Dioxide Anion Gap BUN Creatinine Est GFR ( Amer) Est GFR (Non-Af Amer) POC Glucose (mg/dL) 223 H 191 H 167 H Random Glucose Calcium Phosphorus Magnesium Total Bilirubin AST ALT Alkaline Phosphatase Total Protein Albumin Globulin Albumin/Globulin Ratio 08/25/17 08/25/17 08/25/17 06:18 06:18 10:54 WBC 6.3 RBC 3.68 L Hgb 9.8 L Hct 29.0 L MCV 78.7 L MCH 26.7 L MCHC 33.9 RDW 13.9 Plt Count 219 MPV 8.5 Neut % (Auto) 71.6 Lymph % (Auto) 19.1 L [place] % (Auto) 6.2 Eos % (Auto) 2.1 Baso % (Auto) 1.0 Neut # (Auto) 4.5 Lymph # (Auto) 1.2 [place] # (Auto) 0.4 Eos # (Auto) 0.1 Baso # (Auto) 0.1 Sodium 138 Potassium 4.0 Chloride 103 Carbon Dioxide 26 Anion Gap 13 BUN 8 Creatinine 0.7 Est GFR ( Amer) > 60 Est GFR (Non-Af Amer) > 60 POC Glucose (mg/dL) 315 H Random Glucose 162 H Calcium 8.7 Phosphorus 3.3 Magnesium 2.0 Total Bilirubin 0.5 AST 19 ALT 31 Alkaline Phosphatase 64 Total Protein 6.3 Albumin 3.0 L Globulin 3.2 Albumin/Globulin Ratio 0.9 L Assessment & Plan (1) Anemia Assessment and Plan: work up consistent with iron deficiency anemia agree with transfusion support will start IV iron suspect chronic GI blood loss given anticoagulation recommend GI evaluation Status: Chronic (2) DVT (deep venous thrombosis) Assessment and Plan: ? provoked, reports to DVT after undergoing vascular stenting on Eliquis 2.5mg BID Will need to hold anticoagulation if H/H cont. to drop Thank you for this interesting consult. Status: Acute
--- NOTE | 2017-08-25 14:04 | CP.PCM.PN ---
Objective - Vital Signs/Intake and Output Vital Signs (last 24 hours): Temp Pulse Resp BP Pulse Ox 98.4 F 84 20 175/71 H 96 08/25/17 07:35 08/25/17 07:35 08/25/17 07:35 08/25/17 10:32 08/25/17 07:35 Intake and Output: 08/25/17 08/25/17 06:59 18:59 Intake Total 1000 1160 Output Total 400 Balance 600 1160 - Medications Medications: Current Medications Acetaminophen (Tylenol 325mg Tab) 650 mg PO Q4H PRN PRN Reason: Pain, Mild (1-3) Amlodipine Besylate (Norvasc) 5 mg PO DAILY [facility] Last Admin: 08/25/17 10:32 Dose: 5 mg Apixaban (Eliquis) 2.5 mg PO BID [facility] Last Admin: 08/25/17 10:31 Dose: 2.5 mg Clopidogrel Bisulfate (Plavix) 75 mg PO DAILY [facility] Last Admin: 08/25/17 10:31 Dose: 75 mg Dextrose (Dextrose 50% Inj) 0 ml IV STAT PRN; Protocol PRN Reason: Hypoglycemia Protocol Dextrose (Glutose 15) 0 gm PO ONCE PRN; Protocol PRN Reason: Hypoglycemia Protocol Docusate Sodium (Colace) 100 mg PO TID [facility] Last Admin: 08/25/17 13:46 Dose: 100 mg Famotidine (Pepcid) 20 mg PO DAILY PRN PRN Reason: Heartburn Ferric Sodium Gluconate Complex (Ferrlecit) 125 mg IVPB DAILY [facility] Stop: 09/02/17 10:01 Last Admin: 08/25/17 10:31 Dose: 125 mg Gabapentin (Neurontin) 600 mg PO TID [facility] Last Admin: 08/25/17 13:46 Dose: 600 mg Glucagon (Glucagen Diagnostic Kit) 0 mg IM STAT PRN; Protocol PRN Reason: Hypoglycemia Protocol Sodium Chloride (Sodium Chloride 0.9%) 1,000 mls @ 100 mls/hr IV .Q10H [facility] Last Admin: 08/25/17 13:47 Dose: Not Given Dextrose (Dextrose 5% In Water 1000 Ml) 1,000 mls @ 0 mls/hr IV .Q0M PRN; Protocol; Per Protocol PRN Reason: Hypoglycemia Protocol Insulin Human Regular (Novolin R) 0 unit SC Q6H [facility] PRN Reason: Protocol Last Admin: 08/25/17 12:25 Dose: 4 unit Losartan Potassium (Cozaar) 25 mg PO DAILY [facility] Last Admin: 08/25/17 10:32 Dose: 25 mg Metoprolol Tartrate (Lopressor) 25 mg PO BID [facility] Last Admin: 08/25/17 10:32 Dose: 25 mg [id number] Ethyl Esters (Lovaza) 1 gm PO DAILY [facility] Last Admin: 08/25/17 12:18 Dose: 1 gm Oxycodone/Acetaminophen (Percocet 5/325 Mg Tab) 2 tab PO Q4H PRN PRN Reason: Pain, severe (8-10) Stop: 08/26/17 21:16 Last Admin: 08/25/17 12:16 Dose: 2 tab Rosuvastatin Calcium (Crestor) 20 mg PO HS [facility] Last Admin: 08/24/17 22:08 Dose: Not Given - Labs Labs: 08/25/17 06:18 08/25/17 06:18 PT 11.9 SECONDS (9.7-12.2) 08/24/17 07:29 INR 1.1 08/24/17 07:29 APTT 29 SECONDS (21-34) 08/24/17 07:29 Assessment and Plan - Assessment and Plan (Free Text) Assessment: on Eliquis 2.5mg BID Will need to hold anticoagulation if H/H cont. to drop
--- NOTE | 2017-08-25 14:27 | CP.PCM.PN ---
Subjective - Date & Time of Evaluation Date of Evaluation: 08/25/17 Time of Evaluation: 10:00 - Subjective Subjective: Podiatry Progress Note - Dr. Rocha 67 y/o F with PMHx of DMII, HTN, HLD, PVD, DVT, CAD, seen and evaluated at bedside POD#13 right 1st and 2nd digit amputations (DOS 08/12/17) . Patient returning from MRI at time of visit. Patient 1 day s/p left SFA/Pop atherectomy and drug eluting balloon angioplasty. Patient reports moderate pain to left lower extremity however well-controlled. Offers no complaints to right foot amputation sites. Dressings dirty but intact. Patient admits to noncompliance with strict NWB LLE despite maximal encouragement. Denies N/V/F/D/C/SOB/ISBELL/ dizziness. Objective - Vital Signs/Intake and Output Vital Signs (last 24 hours): Temp Pulse Resp BP Pulse Ox 98.4 F 84 20 175/71 H 96 08/25/17 07:35 08/25/17 07:35 08/25/17 07:35 08/25/17 10:32 08/25/17 07:35 Intake and Output: 08/25/17 08/25/17 06:59 18:59 Intake Total 1000 1160 Output Total 400 Balance 600 1160 - Medications Medications: Current Medications Acetaminophen (Tylenol 325mg Tab) 650 mg PO Q4H PRN PRN Reason: Pain, Mild (1-3) Amlodipine Besylate (Norvasc) 5 mg PO DAILY [facility] Last Admin: 08/25/17 10:32 Dose: 5 mg Apixaban (Eliquis) 2.5 mg PO BID [facility] 234 [facility]S [facility] Last Admin: 08/25/17 10:31 Dose: 2.5 mg Clopidogrel Bisulfate (Plavix) 75 mg PO DAILY [facility] 234 [facility]S AT [facility] Last Admin: 08/25/17 10:31 Dose: 75 mg Dextrose (Dextrose 50% Inj) 0 ml IV STAT PRN; Protocol PRN Reason: Hypoglycemia Protocol Dextrose (Glutose 15) 0 gm PO ONCE PRN; Protocol PRN Reason: Hypoglycemia Protocol Docusate Sodium (Colace) 100 mg PO TID [facility]S [facility]CLUDE 234 [facility]S [facility] Last Admin: 08/25/17 13:46 Dose: 100 mg Famotidine (Pepcid) 20 mg PO DAILY PRN PRN Reason: Heartburn Ferric Sodium Gluconate Complex (Ferrlecit) 125 mg IVPB DAILY [facility] 234 B[facility]S AT [facility] Stop: 09/02/17 10:01 Last Admin: 08/25/17 10:31 Dose: 125 mg Gabapentin (Neurontin) 600 mg PO TID [facility] 234 B[facility]S AT [facility] Last Admin: 08/25/17 13:46 Dose: 600 mg Glucagon (Glucagen Diagnostic Kit) 0 mg IM STAT PRN; Protocol PRN Reason: Hypoglycemia Protocol Sodium Chloride (Sodium Chloride 0.9%) 1,000 mls @ 100 mls/hr IV .Q10H COUNTS [facility]CLUDE 234 BEDS AT [facility] Last Admin: 08/25/17 13:47 Dose: Not Given Dextrose (Dextrose 5% In Water 1000 Ml) 1,000 mls @ 0 mls/hr IV .Q0M PRN; Protocol; Per Protocol PRN Reason: Hypoglycemia Protocol Insulin Human Regular (Novolin R) 0 unit SC Q6H [facility] PRN Reason: Protocol Last Admin: 08/25/17 12:25 Dose: 4 unit Losartan Potassium (Cozaar) 25 mg PO DAILY [facility] 234 [facility]S [facility] Last Admin: 08/25/17 10:32 Dose: 25 mg Metoprolol Tartrate (Lopressor) 25 mg PO BID [facility] 234 [facility]S [facility] Last Admin: 08/25/17 10:32 Dose: 25 mg [id number]-[id number] Ethyl Esters (Lovaza) 1 gm PO DAILY [facility] 234 [facility]S [facility] Last Admin: 08/25/17 12:18 Dose: 1 gm Oxycodone/Acetaminophen (Percocet 5/325 Mg Tab) 2 tab PO Q4H PRN PRN Reason: Pain, severe (8-10) Stop: 08/26/17 21:16 Last Admin: 08/25/17 12:16 Dose: 2 tab Rosuvastatin Calcium (Crestor) 20 mg PO HS [facility]S [facility] 234 [facility]S [facility] Last Admin: 08/24/17 22:08 Dose: Not Given - Labs Labs: 08/25/17 06:18 08/25/17 06:18 PT 11.9 SECONDS (9.7-12.2) 08/24/17 07:29 INR 1.1 08/24/17 07:29 APTT 29 SECONDS (21-34) 08/24/17 07:29 - Constitutional Appears: Well, Non-toxic, No Acute Distress - Extremities Exam Additional comments: Vasc: DP/PT pulses palpable 1/4. Temperature gradient warm to warm b/l. CFT WNL to digits b/l. Minimal non pitting pedal edema noted to right medial forefoot surgical site. Derm: Surgical incision sites noted to 1st and 2nd digit amputation sites, with skin edges well coapted and sutures intact. No dehiscence noted. Periwound erythema noted. No fluctuance. Minimal serosanguinous drainage noted. Unstageable ulceration noted to medial left heel with hyperkeratotic rim noted; absent erythema, absent drainage, absent purulence, absent fluctuance. Neuro: Protective sensation grossly intact Ortho: Mild tenderness noted to palpation of surgical incision sites. Tenderness to palpation left medial heel wound. - Neurological Exam Neurological Exam: Alert, Awake, Oriented x3 - Psychiatric Exam Psychiatric exam: Normal Affect, Normal Mood Assessment and Plan - Assessment and Plan (Free Text) Assessment: 67 y/o female with pmhx of DMII, HTN, HLD, PVD, DVT, CAD, POD#13 right 1st and 2nd digit amputations (DOS 08/12/17) and left foot wound. Plan: Patient seen and evaluated Discussed with attending, Dr. Rocha Afebrile, WBC 6.3 R foot WCx - (prelim) gram negative pearl ID recs appreciated - will start patient on Vancomycin 1g IV QD Pain management - Tylenol 650mg PO, Percocet 2 tabs PO f/u MRI Patient remains non-compliant with strict NWB RLE despite education; discussed with patient complications such as wound dehiscence, further infection if she continues to ambulate on dressing but patient still refuses. Podiatry will continue to follow while patient in house
--- NOTE | 2017-08-25 18:38 | CP.PCM.CON ---
History of Present Illness - History of Present Illness History of Present Illness: 67 y/o F with PMHx of DMII, HTN, HLD, PVD, DVT, CAD, s/p amputation of 1st and 2nd digit of right foot on 08/12/17, seen with attending Dr. Rocha regarding right foot amputation site. Patient was seen in Dr. Rocha's office yesterday and some of the stitches were popped to allow for drainage. Patient is going for abdominal angio today with Dr. Nur. Patient was sent from custodial yesterday and was admitted last night. Patient denies any other pedal complaints at this time. Denies n/f/v/c/d/sob. s/p angio wound c/s + gram neg rods ulcers appear dry to left foot right foot periincisional redness cont iv rx Review of Systems - Constitutional Constitutional: As Per HPI - EENT Eyes: absent: As Per HPI, Blind Spots, Blurred Vision, Change in Vision, Decreased Night Vision, Diplopia, Discharge, Dry Eye, Exophthalmos, Floaters, Irritation, Itchy Eyes, Loss of Peripheral Vision, Pain, Photophobia, Requires Corrective Lenses, Sees Flashes, Spots in Vision, Tunnel Vision, Other Visual Disturbances, Loss of Vision, Other Ears: absent: As Per HPI, Decreased Hearing, Ear Discharge, Ear Pain, Tinnitus, Abnormal Hearing, Disequilibrium, Dizziness, Other Nose/Mouth/Throat: absent: As Per HPI, Epistaxis, Nasal Congestion, Nasal Discharge, Nasal Obstruction, Nasal Trauma, Nose Pain, Post Nasal Drip, Sinus Pain, Sinus Pressure, Bleeding Gums, Change in Voice, Dental Pain, Dry Mouth, Dysphagia, Halitosis, Hoarsness, Lip Swelling, Mouth Lesions, Mouth Pain, Odynophagia, Sore Throat, Throat Swelling, Tongue Swelling, Facial Pain, Neck Pain, Neck Mass, Other - Breasts Breasts: absent: As Per HPI, Change in Shape, Mass, Pain, Nipple Discharge, Nipple Inversion, Skin Changes, Swelling, Other - Cardiovascular Cardiovascular: absent: As Per HPI, Acrocyanosis, Chest Pain, Chest Pain at Rest , Chest Pain with Activity, Claudication, Diaphoresis, Dyspnea, Dyspnea on Exertion, Edema, Irregular Heart Rhythm, Pain Radiating to Arm/Neck/Jaw, Leg Edema, Leg Ulcers, Lightheadedness, Orthopnea, Palpitations, Paroxysmal Nocturnal Dyspnea, Pedal Edema, Radiating Pain, Rapid Heart Rate, Slow Heart Rate, Syncope, Other - Respiratory Respiratory: absent: As Per HPI, Cough, Dyspnea, Hemoptysis, Dyspnea on Exertion , Wheezing, Snoring, Stridor, Pain on Inspiration, Chest Congestion, Excessive Mucous Production, Change in Mucous Color, Pain with Coughing, Other - Gastrointestinal Gastrointestinal: absent: As Per HPI, Abdominal Pain, Belching, Bloating, Change in Bowel Habits, Change in Stool Character, Coffee Ground Emesis, Constipation, Cramping, Diarrhea, Dyspepsia, Dysphagia, Early Satiety, Excessive Flatus, Fecal Incontinence, Heartburn, Hematemesis, Hematochezia, Loose Stools, Melena, Nausea, Odynophagia, Temesmus, Vomiting, Other - Menstruation Menstruation: absent: As Per HPI, Amenorrhea, Amenorrhea/ Control, Currently Menstual, Cycle <21 Days, Cycle >35 Days, Cycle Variable, Menses 1-7 Days, Menses >/= 8 Days, Menses Variable, Cycle > 4 Weeks Between, No Menses for 6 Months, Heavy Menses, Light Menses, Normal Menses, Spotting Between Cycles , S/P Hysterectomy, Menopausal, Post Menopausal, Premenarche, Abnormal Vaginal Bleeding, Dysmenorrhea, Other - Musculoskeletal Musculoskeletal: As Per HPI - Integumentary Integumentary: As Per HPI - Neurological Neurological: As Per HPI - Psychiatric Psychiatric: absent: As Per HPI, Abnormal Sleep Pattern, Anhedonia, Anxiety, Auditory Hallucinations, Behavioral Changes, Change in Appetite, Change in Libido, Confusion, Depression, Difficulty Concentrating, Hallucinations, Homicidal Ideation, Hopelessness, Irritability, Memory Loss, Mood Swings, Panic Attacks, Paranoia, Suicidal Ideation, Visual Hallucinations, Tactile Hallucinations, Other Past Patient History - Infectious Disease Hx of Infectious Diseases: None - Past Medical History & Family History Past Medical History?: Yes - Past Social History Smoking Status: Light Smoker < 10 Cigarettes Daily - CARDIAC Hx Hypercholesterolemia: Yes Hx Hypertension: Yes - PULMONARY Hx Respiratory Disorders: No - HEENT Hx Cataracts: Yes (BILAT. ) - RENAL Hx Chronic Kidney Disease: No - ENDOCRINE/METABOLIC Hx Endocrine Disorders: Yes Hx Diabetes Mellitus Type 2: Yes - HEMATOLOGICAL/ONCOLOGICAL Hx Anemia: Yes - INTEGUMENTARY Hx Dermatological Problems: No - MUSCULOSKELETAL/RHEUMATOLOGICAL Hx Arthritis: Yes - GASTROINTESTINAL Hx Gastrointestinal Disorders: No - GENITOURINARY/GYNECOLOGICAL Hx Genitourinary Disorders: No - PSYCHIATRIC Hx Substance Use: No - SURGICAL HISTORY Hx Coronary Stent: Yes (X1) Hx Tonsillectomy: Yes - ANESTHESIA Hx Anesthesia: Yes Hx Anesthesia Reactions: No Hx Malignant Hyperthermia: No Meds Allergies/Adverse Reactions: Allergies Allergy/AdvReac Type Severity Reaction Status Date / Time No Known Allergies Allergy Verified 08/23/17 17:06 - Medications Medications: Current Medications Acetaminophen (Tylenol 325mg Tab) 650 mg PO Q4H PRN PRN Reason: Pain, Mild (1-3) Amlodipine Besylate (Norvasc) 5 mg PO DAILY [facility] Last Admin: 08/25/17 10:32 Dose: 5 mg Apixaban (Eliquis) 2.5 mg PO BID [facility] Last Admin: 08/25/17 17:42 Dose: 2.5 mg Clopidogrel Bisulfate (Plavix) 75 mg PO DAILY [facility] Last Admin: 08/25/17 10:31 Dose: 75 mg Dextrose (Dextrose 50% Inj) 0 ml IV STAT PRN; Protocol PRN Reason: Hypoglycemia Protocol Dextrose (Glutose 15) 0 gm PO ONCE PRN; Protocol PRN Reason: Hypoglycemia Protocol Docusate Sodium (Colace) 100 mg PO TID [facility] Last Admin: 08/25/17 17:41 Dose: 100 mg Famotidine (Pepcid) 20 mg PO DAILY PRN PRN Reason: Heartburn Ferric Sodium Gluconate Complex (Ferrlecit) 125 mg IVPB DAILY [facility] Stop: 09/02/17 10:01 Last Admin: 08/25/17 10:31 Dose: 125 mg Gabapentin (Neurontin) 600 mg PO TID [facility] Last Admin: 08/25/17 17:41 Dose: 600 mg Glucagon (Glucagen Diagnostic Kit) 0 mg IM STAT PRN; Protocol PRN Reason: Hypoglycemia Protocol Sodium Chloride (Sodium Chloride 0.9%) 1,000 mls @ 100 mls/hr IV .Q10H [facility] Last Admin: 08/25/17 13:47 Dose: Not Given Dextrose (Dextrose 5% In Water 1000 Ml) 1,000 mls @ 0 mls/hr IV .Q0M PRN; Protocol; Per Protocol PRN Reason: Hypoglycemia Protocol Vancomycin/Sodium Chloride (Vancomycin 1 Gm/Ns 200 Ml) 1 gm in 200 mls @ 133 mls/hr IVPB DAILY [facility] PRN Reason: Protocol Stop: 08/31/17 10:01 Cefepime HCl 1 gm/ Dextrose 50 mls @ 100 mls/hr IVPB Q12H [facility] PRN Reason: Protocol Insulin Human Regular (Novolin R) 0 unit SC Q6H [facility] PRN Reason: Protocol Last Admin: 08/25/17 17:48 Dose: 2 unit Losartan Potassium (Cozaar) 25 mg PO DAILY [facility] Last Admin: 08/25/17 10:32 Dose: 25 mg Metoprolol Tartrate (Lopressor) 25 mg PO BID [facility] Last Admin: 08/25/17 17:41 Dose: 25 mg [id number] Ethyl Esters (Lovaza) 1 gm PO DAILY [facility] Last Admin: 08/25/17 12:18 Dose: 1 gm Oxycodone/Acetaminophen (Percocet 5/325 Mg Tab) 2 tab PO Q4H PRN PRN Reason: Pain, severe (8-10) Stop: 08/26/17 21:16 Last Admin: 08/25/17 12:16 Dose: 2 tab Rosuvastatin Calcium (Crestor) 20 mg PO HS [facility] Last Admin: 08/24/17 22:08 Dose: Not Given Physical Exam - Constitutional Appears: Non-toxic, Chronically Ill - Head Exam Head Exam: NORMOCEPHALIC - Eye Exam Eye Exam: absent: Scleral icterus - ENT Exam ENT Exam: Mucous Membranes Dry - Respiratory Exam Respiratory Exam: Decreased Breath Sounds - Cardiovascular Exam Cardiovascular Exam: REGULAR RHYTHM - GI/Abdominal Exam GI & Abdominal Exam: Diminished Bowel Sounds - Rectal Exam Rectal Exam: Deferred - Exam Exam: NORMAL INSPECTION - Extremities Exam Extremities exam: Positive for: pedal edema, tenderness. Negative for: calf tenderness, pedal pulses present Additional comments: ulcers on left foot- mainly dry right foot dana-incisional redness - Back Exam Back exam: absent: CVA tenderness (L), CVA tenderness (R) - Neurological Exam Neurological exam: Alert, CN II-XII Intact, Oriented x3, Reflexes Normal - Psychiatric Exam Psychiatric exam: Depressed - Skin Skin Exam: Dry Results - Vital Signs Recent Vital Signs: Last Vital Signs Temp 98.4 F 08/25/17 07:35 Pulse 84 08/25/17 07:35 Resp 20 08/25/17 07:35 BP 116/63 08/25/17 17:41 Pulse Ox 96 08/25/17 07:35 - Labs Result Diagrams: 08/25/17 06:18 08/25/17 06:18 Labs: Laboratory Results - last 24 hr 08/24/17 08/25/17 08/25/17 21:04 04:14 06:18 WBC 6.3 RBC 3.68 L Hgb 9.8 L Hct 29.0 L MCV 78.7 L MCH 26.7 L MCHC 33.9 RDW 13.9 Plt Count 219 MPV 8.5 Neut % (Auto) 71.6 Lymph % (Auto) 19.1 L Spencer % (Auto) 6.2 Eos % (Auto) 2.1 Baso % (Auto) 1.0 Neut # (Auto) 4.5 Lymph # (Auto) 1.2 Spencer # (Auto) 0.4 Eos # (Auto) 0.1 Baso # (Auto) 0.1 Sodium Potassium Chloride Carbon Dioxide Anion Gap BUN Creatinine Est GFR ( Amer) Est GFR (Non-Af Amer) POC Glucose (mg/dL) 191 H 167 H Random Glucose Calcium Phosphorus Magnesium Total Bilirubin AST ALT Alkaline Phosphatase Total Protein Albumin Globulin Albumin/Globulin Ratio 08/25/17 08/25/17 08/25/17 06:18 10:54 16:25 WBC RBC Hgb Hct MCV MCH MCHC RDW Plt Count MPV Neut % (Auto) Lymph % (Auto) Spencer % (Auto) Eos % (Auto) Baso % (Auto) Neut # (Auto) Lymph # (Auto) Spencer # (Auto) Eos # (Auto) Baso # (Auto) Sodium 138 Potassium 4.0 Chloride 103 Carbon Dioxide 26 Anion Gap 13 BUN 8 Creatinine 0.7 Est GFR ( Amer) > 60 Est GFR (Non-Af Amer) > 60 POC Glucose (mg/dL) 315 H 235 H Random Glucose 162 H Calcium 8.7 Phosphorus 3.3 Magnesium 2.0 Total Bilirubin 0.5 AST 19 ALT 31 Alkaline Phosphatase 64 Total Protein 6.3 Albumin 3.0 L Globulin 3.2 Albumin/Globulin Ratio 0.9 L Assessment & Plan (1) DVT (deep venous thrombosis) Status: Acute (2) Toe amputation status Status: Acute (3) PVD (peripheral vascular disease) Status: Chronic Priority: High (4) MERLINE (acute kidney injury) Status: Acute Priority: High (5) Arthritis Status: Acute (6) CKD (chronic kidney disease) stage 2, GFR 60-89 ml/min Status: Acute (7) COPD (chronic obstructive pulmonary disease) Status: Acute (8) Cellulitis Status: Acute - Assessment and Plan (Free Text) Assessment: severe PVD s/p amp toes on right foot dry ulcers on left foot wound growing gram neg rods s/p angioplasty consider MRI cont iv antibiotics
[2017-08-25] MEDS: Cefepime IV 1 gm in Dextrose 1 GM/50 ML BAG IVPB SCH (20:00)
--- NOTE | 2017-08-25 21:24 | CP.PCM.PN ---
Subjective - Date & Time of Evaluation Date of Evaluation: 08/25/17 Time of Evaluation: 14:20 - Subjective Subjective: Patient seen and evaluated S/P PRBC transfusion No cardiac complaints Review of Systems - Constitutional Constitutional: absent: Fever - EENT Eyes: absent: Blurred Vision - Cardiovascular Cardiovascular: absent: Chest Pain, Dyspnea, Leg Edema - Respiratory Respiratory: absent: Cough, Dyspnea, Dyspnea on Exertion, Wheezing, Stridor - Gastrointestinal Gastrointestinal: absent: Constipation, Diarrhea, Nausea, Vomiting - Musculoskeletal Musculoskeletal: absent: Numbness, Tingling - Integumentary Integumentary: Skin Ulcer (left foot heel and later aspect of foot ulcer) Additional comments: right foot wrapped in dressing s/p 1st and 2nd digit amputation Physical Exam - Constitutional Appears: Non-toxic, No Acute Distress - Head Exam Head Exam: ATRAUMATIC, NORMAL INSPECTION, NORMOCEPHALIC - Eye Exam Eye Exam: EOMI, Normal appearance - ENT Exam ENT Exam: Mucous Membranes Moist - Respiratory Exam Respiratory Exam: Clear to Auscultation Bilateral, NORMAL BREATHING PATTERN - Cardiovascular Exam Cardiovascular Exam: REGULAR RHYTHM - Extremites Right foot s/p surgery Objective - Vital Signs/Intake and Output Vital Signs (last 24 hours): Temp Pulse Resp BP Pulse Ox 98.4 F 84 20 116/63 96 08/25/17 07:35 08/25/17 07:35 08/25/17 07:35 08/25/17 17:41 08/25/17 07:35 Intake and Output: 08/25/17 08/26/17 18:59 06:59 Intake Total 2320 Balance 2320 - Medications Medications: Current Medications Acetaminophen (Tylenol 325mg Tab) 650 mg PO Q4H PRN PRN Reason: Pain, Mild (1-3) Amlodipine Besylate (Norvasc) 5 mg PO DAILY [facility] Last Admin: 08/25/17 10:32 Dose: 5 mg Apixaban (Eliquis) 2.5 mg PO BID [facility] Last Admin: 08/25/17 17:42 Dose: 2.5 mg Clopidogrel Bisulfate (Plavix) 75 mg PO DAILY [facility] Last Admin: 08/25/17 10:31 Dose: 75 mg Dextrose (Dextrose 50% Inj) 0 ml IV STAT PRN; Protocol PRN Reason: Hypoglycemia Protocol Dextrose (Glutose 15) 0 gm PO ONCE PRN; Protocol PRN Reason: Hypoglycemia Protocol Docusate Sodium (Colace) 100 mg PO TID [facility] Last Admin: 08/25/17 17:41 Dose: 100 mg Famotidine (Pepcid) 20 mg PO DAILY PRN PRN Reason: Heartburn Ferric Sodium Gluconate Complex (Ferrlecit) 125 mg IVPB DAILY [facility] Stop: 09/02/17 10:01 Last Admin: 08/25/17 10:31 Dose: 125 mg Gabapentin (Neurontin) 600 mg PO TID [facility] Last Admin: 08/25/17 17:41 Dose: 600 mg Glucagon (Glucagen Diagnostic Kit) 0 mg IM STAT PRN; Protocol PRN Reason: Hypoglycemia Protocol Sodium Chloride (Sodium Chloride 0.9%) 1,000 mls @ 100 mls/hr IV .Q10H [facility] Last Admin: 08/25/17 21:10 Dose: 100 mls/hr Dextrose (Dextrose 5% In Water 1000 Ml) 1,000 mls @ 0 mls/hr IV .Q0M PRN; Protocol; Per Protocol PRN Reason: Hypoglycemia Protocol Vancomycin/Sodium Chloride (Vancomycin 1 Gm/Ns 200 Ml) 1 gm in 200 mls @ 133 mls/hr IVPB DAILY [facility] PRN Reason: Protocol Stop: 08/31/17 10:01 Cefepime HCl (Maxipime Iv 1 Gm Premix) 1 gm in 50 mls @ 100 mls/hr IVPB Q12H [facility] PRN Reason: Protocol Last Admin: 08/25/17 20:00 Dose: 100 mls/hr Insulin Human Regular (Novolin R) 0 unit SC Q6H [facility] PRN Reason: Protocol Last Admin: 08/25/17 17:48 Dose: 2 unit Losartan Potassium (Cozaar) 25 mg PO DAILY [facility] Last Admin: 08/25/17 10:32 Dose: 25 mg Metoprolol Tartrate (Lopressor) 25 mg PO BID [facility] Last Admin: 08/25/17 17:41 Dose: 25 mg [id number] Ethyl Esters (Lovaza) 1 gm PO DAILY [facility] Last Admin: 08/25/17 12:18 Dose: 1 gm Oxycodone/Acetaminophen (Percocet 5/325 Mg Tab) 2 tab PO Q4H PRN PRN Reason: Pain, severe (8-10) Stop: 08/26/17 21:16 Last Admin: 08/25/17 21:10 Dose: 2 tab Rosuvastatin Calcium (Crestor) 20 mg PO HS [facility] Last Admin: 08/25/17 21:05 Dose: 20 mg - Labs Labs: 08/25/17 06:18 08/25/17 06:18 PT 11.9 SECONDS (9.7-12.2) 08/24/17 07:29 INR 1.1 08/24/17 07:29 APTT 29 SECONDS (21-34) 08/24/17 07:29 Assessment and Plan - Assessment and Plan (Free Text) Assessment: 67F with past medical history of DMII, HTN, HLD, PVD, DVT, CAD, s/p amputation of 1st and 2nd digit of right foot on 08/12/17. History of PVD with b/l stents patient for angiogram b/l legs 08/24 08/24 aortofemoral angiogram via right femoral artery. selective catherization of left femoral artery. pathway atherectomy of left sfa/ popliteal. DCB balloon angioplasty 5 and 6 mm to sfa and popliteal (stented area,) 7mm balloon to proximal SFA. 2.5 mm to anterior tibial. pressure closure right groin Vascular Surgery Consult: Dr. Nur Left foot ulcers with pain continue Percocet 5/325mg po 2 tab q4h prn pain MRI w/out contrast of L foot to r/o osteomyelitis Podiatry Consult: Dr. Rocha ESR 85, CRP 4.02 f/u Procalcitonin Anemia history, current transfuse 1 u PRBC 08/24, consent in chart Dr. Banda consulted DM Accuchecks ISS low dose hypoglycemic protocol continue gabapentin 600 mg BID hold metformin, januvia, and glipizide Diabetic consistent diet HTN Continue home meds: norvasc 5 mg daily losartan 25 mg daily lopressor 50 mg daily HLD Crestor 20 mg HS [place] 3 1,000 gm po daily Constipation Colace 100mg po TID History of DVT hold home eliquis for surgery - will await surgery recs PPX GI: pepcid 20 mg daily DVT: will await recs from podiatry
[2017-08-26] MEDS: Sodium Chloride 0.9% 1,000 ML IV SCH ×2 (00:33→09:34)
[2017-08-26] MEDS: (Novolin R) Insulin Human Regular 100 units/ml vial SC SCH ×3 (04:11→17:43)
[2017-08-26] MEDS: Cefepime IV 1 gm in Dextrose 1 GM/50 ML BAG IVPB SCH (06:11)
[2017-08-26 06:46] LABS: BASO % 0.6 % (0.0-2.0); EOS # 0.1 K/uL (0.0-0.7); EOS % 2.1 % (0.0-4.0); HEMOGLOBIN 9.4 g/dL (11.0-16.0); LYMPH # 1.1 K/uL (1.0-4.3); LYMPH % 18.7 % (20.0-40.0); MEAN CORPUSCULAR HEMOGLOBIN 26.4 pg (27.0-31.0); MEAN CORPUSCULAR HGB CONC 33.4 g/dL (33.0-37.0); MEAN PLATELET VOLUME 8.5 fL (7.2-11.7); MONO # 0.5 K/uL (0.0-0.8); MONO % 8.5 % (0.0-10.0); NEUT % 70.1 % (50.0-75.0); RBC 3.56 Mil/uL (3.80-5.20); RED CELL DISTRIBUTION WIDTH 14.4 % (11.5-14.5); WHITE BLOOD COUNT 5.7 K/uL (4.8-10.8)
--- NOTE | 2017-08-26 07:28 | CP.PCM.PN ---
<Fredy Merritt - Last Filed: 08/26/17 14:29> Subjective - Date & Time of Evaluation Date of Evaluation: 08/26/17 Time of Evaluation: 09:20 - Subjective Subjective: Medicine progress note for Dr. Baker Patient seen and examined. Patient reports that she is doing well. She has no acute complaints at this time. Pain is controlled. No acute events overnight. Objective - Vital Signs/Intake and Output Vital Signs (last 24 hours): Temp Pulse Resp BP Pulse Ox 98 F 62 20 126/68 96 08/26/17 00:00 08/26/17 00:00 08/26/17 00:00 08/26/17 00:00 08/26/17 00:00 Intake and Output: 08/26/17 08/26/17 06:59 18:59 Intake Total 1840 Balance 1840 - Medications Medications: Current Medications Acetaminophen (Tylenol 325mg Tab) 650 mg PO Q4H PRN PRN Reason: Pain, Mild (1-3) Amlodipine Besylate (Norvasc) 5 mg PO DAILY [facility] Last Admin: 08/25/17 10:32 Dose: 5 mg Apixaban (Eliquis) 2.5 mg PO BID [facility] Last Admin: 08/25/17 17:42 Dose: 2.5 mg Clopidogrel Bisulfate (Plavix) 75 mg PO DAILY [facility] Last Admin: 08/25/17 10:31 Dose: 75 mg Dextrose (Dextrose 50% Inj) 0 ml IV STAT PRN; Protocol PRN Reason: Hypoglycemia Protocol Dextrose (Glutose 15) 0 gm PO ONCE PRN; Protocol PRN Reason: Hypoglycemia Protocol Docusate Sodium (Colace) 100 mg PO TID [facility] Last Admin: 08/25/17 17:41 Dose: 100 mg Famotidine (Pepcid) 20 mg PO DAILY PRN PRN Reason: Heartburn Ferric Sodium Gluconate Complex (Ferrlecit) 125 mg IVPB DAILY [facility] Stop: 09/02/17 10:01 Last Admin: 08/25/17 10:31 Dose: 125 mg Gabapentin (Neurontin) 600 mg PO TID [facility] Last Admin: 08/25/17 17:41 Dose: 600 mg Glucagon (Glucagen Diagnostic Kit) 0 mg IM STAT PRN; Protocol PRN Reason: Hypoglycemia Protocol Sodium Chloride (Sodium Chloride 0.9%) 1,000 mls @ 100 mls/hr IV .Q10H [facility] Last Admin: 08/26/17 00:33 Dose: Not Given Dextrose (Dextrose 5% In Water 1000 Ml) 1,000 mls @ 0 mls/hr IV .Q0M PRN; Protocol; Per Protocol PRN Reason: Hypoglycemia Protocol Vancomycin/Sodium Chloride (Vancomycin 1 Gm/Ns 200 Ml) 1 gm in 200 mls @ 133 mls/hr IVPB DAILY [facility] PRN Reason: Protocol Stop: 08/31/17 10:01 Cefepime HCl (Maxipime Iv 1 Gm Premix) 1 gm in 50 mls @ 100 mls/hr IVPB Q12H [facility] PRN Reason: Protocol Last Admin: 08/26/17 06:11 Dose: 100 mls/hr Insulin Human Regular (Novolin R) 0 unit SC Q6H [facility] PRN Reason: Protocol Last Admin: 08/26/17 04:11 Dose: Not Given Losartan Potassium (Cozaar) 25 mg PO DAILY [facility] Last Admin: 08/25/17 10:32 Dose: 25 mg Metoprolol Tartrate (Lopressor) 25 mg PO BID [facility] Last Admin: 08/25/17 17:41 Dose: 25 mg Atati-4-Uopl Ethyl Esters (Lovaza) 1 gm PO DAILY [facility] Last Admin: 08/25/17 12:18 Dose: 1 gm Oxycodone/Acetaminophen (Percocet 5/325 Mg Tab) 2 tab PO Q4H PRN PRN Reason: Pain, severe (8-10) Stop: 08/26/17 21:16 Last Admin: 08/25/17 21:10 Dose: 2 tab Rosuvastatin Calcium (Crestor) 20 mg PO HS [facility] Last Admin: 08/25/17 21:05 Dose: 20 mg - Labs Labs: 08/26/17 06:29 08/25/17 06:18 PT 11.9 SECONDS (9.7-12.2) 08/24/17 07:29 INR 1.1 08/24/17 07:29 APTT 29 SECONDS (21-34) 08/24/17 07:29 - Additional Findings Additional findings: - Constitutional Appears: No Acute Distress - Head Exam Head Exam: ATRAUMATIC, NORMAL INSPECTION, NORMOCEPHALIC - Eye Exam Eye Exam: EOMI, Normal appearance - ENT Exam ENT Exam: Mucous Membranes Moist, Normal Exam - Neck Exam Neck Exam: Full ROM, Normal Inspection. absent: Tenderness, Thyromegaly - Cardiovascular Exam Cardiovascular Exam: REGULAR RHYTHM, +S1, +S2. absent: Bradycardia, Tachycardia - GI/Abdominal Exam GI & Abdominal Exam: Soft, Tenderness (lower abdomen ), Normal Bowel Sounds. absent: Firm, Guarding, Rigid, Rebound - Extremities Exam Extremities Exam: Full ROM. absent: Pedal Edema Additional comments: left foot ulcer over the 5th metatarsal region and healing ulcer below medial malleolus right foot wrapped in dressing s/p 1st and 2nd digit amputation - Back Exam Back Exam: Full ROM, NORMAL INSPECTION - Neurological Exam Neurological Exam: Awake, CN II-XII Intact, Normal Gait, Oriented x3 - Psychiatric Exam Psychiatric exam: Normal Affect, Normal Mood - Skin Skin Exam: Dry, Normal Color, Warm Assessment and Plan - Assessment and Plan (Free Text) Plan: 67F with past medical history of DMII, HTN, HLD, PVD, DVT, CAD, s/p amputation of 1st and 2nd digit of right foot on 08/12/17. Left foot ulcer with history of PVD patient for angiogram b/l legs 08/24 08/24 aortofemoral angiogram via right femoral artery. selective catherization of left femoral artery. pathway atherectomy of left sfa/ popliteal. DCB balloon angioplasty 5 and 6 mm to sfa and popliteal (stented area,) 7mm balloon to proximal SFA. 2.5 mm to anterior tibial. pressure closure right groin Vascular Surgery Consult: Dr. Nur MRI of the left leg shows no signs of osteomyelitis Left foot ulcers with pain continue Percocet 5/325mg po 2 tab q4h prn pain Podiatry Consult: Dr. Rocha ESR 85, CRP 4.02 Previously on Vancomycin and Cefepime. Switched to Zosyn 3.375 gm Q8H on 08/26/17. Patient will need to be on this for 7 -14 days per ID. History of Anemia transfuse 1 u PRBC 08/24, consent in chart Dr. Banda consult: on Eliquis 2.5mg BID. hold anticoagulation if H/H cont. to drop IV Ferrlecit 125 mg IV daily History of Diabetes Accuchecks ISS low dose hypoglycemic protocol continue gabapentin 600 mg BID hold metformin, januvia, and glipizide Diabetic consistent diet History of Hypertension Continue home meds: norvasc 5 mg daily losartan 25 mg daily lopressor 50 mg daily History of Hyperlipidemia Crestor 20 mg HS [place] 3 1,000 gm po daily Constipation Colace 100mg po TID History of DVT Continue home eliquis 2.5 mg PO BID Prophylaxis GI: pepcid 20 mg daily DVT: Eliquis 2.5 mg PO BID Disposition: Discharge is pending PICC line placement. Discussed with Dr. Olivia Merritt PGY-1 <Luis Alberto Baker H - Last Filed: 08/26/17 14:54> Objective - Vital Signs/Intake and Output Vital Signs (last 24 hours): Temp Pulse Resp BP Pulse Ox 98 F 62 20 142/71 96 08/26/17 00:00 08/26/17 00:00 08/26/17 00:00 08/26/17 09:43 08/26/17 00:00 Intake and Output: 08/26/17 08/26/17 06:59 18:59 Intake Total 1840 Balance 1840 - Medications Medications: Current Medications Acetaminophen (Tylenol 325mg Tab) 650 mg PO Q4H PRN PRN Reason: Pain, Mild (1-3) Amlodipine Besylate (Norvasc) 5 mg PO DAILY [facility] Last Admin: 08/26/17 09:43 Dose: 5 mg Apixaban (Eliquis) 2.5 mg PO BID [facility] Last Admin: 08/26/17 09:42 Dose: 2.5 mg Clopidogrel Bisulfate (Plavix) 75 mg PO DAILY [facility] Last Admin: 08/26/17 09:42 Dose: 75 mg Dextrose (Dextrose 50% Inj) 0 ml IV STAT PRN; Protocol PRN Reason: Hypoglycemia Protocol Dextrose (Glutose 15) 0 gm PO ONCE PRN; Protocol PRN Reason: Hypoglycemia Protocol Docusate Sodium (Colace) 100 mg PO TID [facility] Last Admin: 08/26/17 09:43 Dose: 100 mg Famotidine (Pepcid) 20 mg PO DAILY PRN PRN Reason: Heartburn Last Admin: 08/26/17 09:43 Dose: 20 mg Ferric Sodium Gluconate Complex (Ferrlecit) 125 mg IVPB DAILY [facility] Stop: 09/02/17 10:01 Last Admin: 08/26/17 09:39 Dose: 125 mg Gabapentin (Neurontin) 600 mg PO TID [facility] Last Admin: 08/26/17 09:42 Dose: 600 mg Glucagon (Glucagen Diagnostic Kit) 0 mg IM STAT PRN; Protocol PRN Reason: Hypoglycemia Protocol Dextrose (Dextrose 5% In Water 1000 Ml) 1,000 mls @ 0 mls/hr IV .Q0M PRN; Protocol; Per Protocol PRN Reason: Hypoglycemia Protocol Piperacillin Sod/Tazobactam (Sod 3.375 gm/ Sodium Chloride) 100 mls @ 200 mls/ hr IVPB Q8H [facility] PRN Reason: Protocol Stop: 09/05/17 23:59 Insulin Human Regular (Novolin R) 0 unit SC Q6H [facility] PRN Reason: Protocol Last Admin: 08/26/17 11:50 Dose: 2 unit Losartan Potassium (Cozaar) 25 mg PO DAILY [facility] Last Admin: 08/26/17 09:43 Dose: 25 mg Metoprolol Tartrate (Lopressor) 25 mg PO BID [facility] Last Admin: 08/26/17 09:43 Dose: 25 mg Mupirocin (Bactroban Ointment) 1 gm TOP DAILY [facility] Last Admin: 08/26/17 12:02 Dose: 1 applic Tutxp-0-Bbwt Ethyl Esters (Lovaza) 1 gm PO DAILY [facility] Last Admin: 08/26/17 09:43 Dose: 1 gm Oxycodone/Acetaminophen (Percocet 5/325 Mg Tab) 2 tab PO Q4H PRN PRN Reason: Pain, severe (8-10) Stop: 08/26/17 21:16 Last Admin: 08/26/17 09:50 Dose: 2 tab Rosuvastatin Calcium (Crestor) 20 mg PO HS [facility] Last Admin: 08/25/17 21:05 Dose: 20 mg - Labs Labs: 08/26/17 06:29 08/26/17 06:29 PT 11.9 SECONDS (9.7-12.2) 08/24/17 07:29 INR 1.1 08/24/17 07:29 APTT 29 SECONDS (21-34) 08/24/17 07:29 Attending/Attestation - Attestation I have personally seen and examined this patient.: Yes I have fully participated in the care of the patient.: Yes I have reviewed all pertinent clinical information, including history, physical exam and plan: Yes Notes (Text): 08/26/17 14:52 Medical attending: Patient was seen and examined by me earlier in the day with the resident. I agree with the above note by the resident The patient was NOT in any acute distress when I saw her. She denied chest pain, denied shortness of breath, denied I am being told that the MRI of the foot is negative for ostemylitis She will need to continue with IV abx for the time being for the tissue infection thank you Luis Alberto Baker
[2017-08-26 08:07] LABS: ALB/GLOB RATIO 0.9 (1.0-2.1); ALBUMIN 2.9 g/dL (3.5-5.0); ALT/SGPT 22 U/L (9-52); AST/SGOT 18 U/L (14-36); BLOOD UREA NITROGEN 11 mg/dL (7-17); CALCIUM 8.7 mg/dl (8.6-10.4); GFR AFRICAN-AMERICAN > 60; GFR NON-AFRICAN AMERICAN > 60
[2017-08-26] MEDS: Ferric Sodium Gluconat Complex 62.5 mg/5 ml Vial IVPB SCH (09:39)
[2017-08-26] MEDS: Omega-3-Acid Ethyl Esters 1 GM Cap PO SCH (09:43)
[2017-08-26] MEDS: Oxycodone/Acetaminophen 5/325 mg Tab PO PRN ×2 (09:50→15:17)
--- NOTE | 2017-08-26 09:52 | CP.PCM.PN ---
Subjective - Date & Time of Evaluation Date of Evaluation: 08/26/17 Time of Evaluation: 09:52 - Subjective Subjective: Podiatry Progress Note - Dr. Rocha 67 y/o F with PMHx of DMII, HTN, HLD, PVD, DVT, CAD, seen and evaluated at bedside POD#14 right 1st and 2nd digit amputations (DOS 08/12/17) and left foot wounds x2. Patient hemodynamically stable and AND. Patient reports to pain in LLE however decreased from yesterday and well-controlled. No complaints to right foot amputation site this visit. Patient reports she is trying to remain compliant with strict NWB RLE but admits she bears weight to R foot when OOB to bedside commode. Patient aware she is to follow up with Dr. Rocha in office next week Tuesday upon discharge. Denies N/V/F/D/C/SOB/ISBELL/dizziness. Objective - Vital Signs/Intake and Output Vital Signs (last 24 hours): Temp Pulse Resp BP Pulse Ox 98 F 62 20 142/71 96 08/26/17 00:00 08/26/17 00:00 08/26/17 00:00 08/26/17 09:43 08/26/17 00:00 Intake and Output: 08/26/17 08/26/17 06:59 18:59 Intake Total 1840 Balance 1840 - Medications Medications: Current Medications Acetaminophen (Tylenol 325mg Tab) 650 mg PO Q4H PRN PRN Reason: Pain, Mild (1-3) Amlodipine Besylate (Norvasc) 5 mg PO DAILY [facility] Last Admin: 08/26/17 09:43 Dose: 5 mg Apixaban (Eliquis) 2.5 mg PO BID [facility] Last Admin: 08/26/17 09:42 Dose: 2.5 mg Clopidogrel Bisulfate (Plavix) 75 mg PO DAILY [facility] Last Admin: 08/26/17 09:42 Dose: 75 mg Dextrose (Dextrose 50% Inj) 0 ml IV STAT PRN; Protocol PRN Reason: Hypoglycemia Protocol Dextrose (Glutose 15) 0 gm PO ONCE PRN; Protocol PRN Reason: Hypoglycemia Protocol Docusate Sodium (Colace) 100 mg PO TID [facility] Last Admin: 08/26/17 09:43 Dose: 100 mg Famotidine (Pepcid) 20 mg PO DAILY PRN PRN Reason: Heartburn Last Admin: 08/26/17 09:43 Dose: 20 mg Ferric Sodium Gluconate Complex (Ferrlecit) 125 mg IVPB DAILY [facility] Stop: 09/02/17 10:01 Last Admin: 08/26/17 09:39 Dose: 125 mg Gabapentin (Neurontin) 600 mg PO TID [facility] Last Admin: 08/26/17 09:42 Dose: 600 mg Glucagon (Glucagen Diagnostic Kit) 0 mg IM STAT PRN; Protocol PRN Reason: Hypoglycemia Protocol Sodium Chloride (Sodium Chloride 0.9%) 1,000 mls @ 100 mls/hr IV .Q10H [facility] Last Admin: 08/26/17 09:34 Dose: Not Given Dextrose (Dextrose 5% In Water 1000 Ml) 1,000 mls @ 0 mls/hr IV .Q0M PRN; Protocol; Per Protocol PRN Reason: Hypoglycemia Protocol Vancomycin/Sodium Chloride (Vancomycin 1 Gm/Ns 200 Ml) 1 gm in 200 mls @ 133 mls/hr IVPB DAILY [facility] PRN Reason: Protocol Stop: 08/31/17 10:01 Cefepime HCl (Maxipime Iv 1 Gm Premix) 1 gm in 50 mls @ 100 mls/hr IVPB Q12H [facility] PRN Reason: Protocol Last Admin: 08/26/17 06:11 Dose: 100 mls/hr Insulin Human Regular (Novolin R) 0 unit SC Q6H [facility] PRN Reason: Protocol Last Admin: 08/26/17 04:11 Dose: Not Given Losartan Potassium (Cozaar) 25 mg PO DAILY [facility] Last Admin: 08/26/17 09:43 Dose: 25 mg Metoprolol Tartrate (Lopressor) 25 mg PO BID [facility] Last Admin: 08/26/17 09:43 Dose: 25 mg Plvko-7-Lpzt Ethyl Esters (Lovaza) 1 gm PO DAILY [facility] Last Admin: 08/26/17 09:43 Dose: 1 gm Oxycodone/Acetaminophen (Percocet 5/325 Mg Tab) 2 tab PO Q4H PRN PRN Reason: Pain, severe (8-10) Stop: 08/26/17 21:16 Last Admin: 08/26/17 09:50 Dose: 2 tab Rosuvastatin Calcium (Crestor) 20 mg PO HS [facility] Last Admin: 08/25/17 21:05 Dose: 20 mg - Labs Labs: 08/26/17 06:29 08/26/17 06:29 PT 11.9 SECONDS (9.7-12.2) 08/24/17 07:29 INR 1.1 08/24/17 07:29 APTT 29 SECONDS (21-34) 08/24/17 07:29 - Constitutional Appears: Well, Non-toxic, No Acute Distress - Extremities Exam Additional comments: Vasc: DP/PT pulses palpable 1/4 RLE, nonpalpable LLE. Temperature gradient warm to warm b/l. CFT WNL to digits b/l. Minimal non pitting pedal edema noted to right medial forefoot surgical site. Derm: Surgical incision sites noted to 1st and 2nd digit amputation sites, with skin edges well coapted and sutures intact. No dehiscence noted. Periwound erythema noted, improving. No fluctuance. Minimal serosanguinous drainage noted. Unstageable ulceration noted to medial left heel with hyperkeratotic rim and mild periwound erythema; absent drainage, absent purulence, absent fluctuance. Unstageable ulceration noted to plantarlateral left foot with hyperkeratotic rim, no periwound erythema, no drainage, no purulence, no fluctuance. Neuro: Protective sensation grossly intact Ortho: Mild tenderness noted to palpation of surgical incision sites. Tenderness to palpation left medial heel wound. - Neurological Exam Neurological Exam: Alert, Awake, Oriented x3 - Psychiatric Exam Psychiatric exam: Normal Affect, Normal Mood Assessment and Plan - Assessment and Plan (Free Text) Assessment: 67 y/o female with pmhx of DMII, HTN, HLD, PVD, DVT, CAD, POD#14 right 1st and 2nd digit amputations (DOS 08/12/17) and left foot unstageable ulcerations Plan: Patient seen and evaluated with attending, Dr. Rocha Afebrile, WBC 5.7 R foot WCx - pseudomonas aeruginosa -Per ID, may discharge patient home on 10 days of Zosyn Pain management - Tylenol 650mg PO, Percocet 2 tabs PO, Gabapentin 600mg PO f/u MRI report - prelim negative for OM Patient remains non-compliant with strict NWB RLE despite education; discussed with patient complications such as wound dehiscence, further infection if she continues to ambulate on dressing Stable for discharge per podiatry Patient to follow up with Dr. Rocha in office next week 08/30/17 Podiatry will continue to follow while patient in house
[2017-08-26] MEDS ORDERED: Vancomycin 1 gm/NS 200 ml 1 GM/200 ML BAG IVPB SCH (10:00)
--- NOTE | 2017-08-26 10:55 | CP.PCM.PN ---
<Luis Alberto Granados - Last Filed: 08/26/17 17:24> Subjective - Date & Time of Evaluation Date of Evaluation: 08/26/17 Time of Evaluation: 07:30 - Subjective Subjective: PGY2 Cardiology Progress Note- Dr. Alvarado Patient seen and examined at bedside this AM. She is recovering well s/p amputation of 1st and 2nd digit of right foot on 08/12/17, POD#2. Denies any chest pain, palpitations, or SOB. Denies any additional acute complaints. Stool occult ordered considering anemia on blood work. Objective - Vital Signs/Intake and Output Vital Signs (last 24 hours): Temp Pulse Resp BP Pulse Ox 98 F 62 20 142/71 96 08/26/17 00:00 08/26/17 00:00 08/26/17 00:00 08/26/17 09:43 08/26/17 00:00 Intake and Output: 08/26/17 08/26/17 06:59 18:59 Intake Total 1840 Balance 1840 - Medications Medications: Current Medications Acetaminophen (Tylenol 325mg Tab) 650 mg PO Q4H PRN PRN Reason: Pain, Mild (1-3) Amlodipine Besylate (Norvasc) 5 mg PO DAILY [facility] Last Admin: 08/26/17 09:43 Dose: 5 mg Apixaban (Eliquis) 2.5 mg PO BID [facility] Last Admin: 08/26/17 09:42 Dose: 2.5 mg Clopidogrel Bisulfate (Plavix) 75 mg PO DAILY [facility] Last Admin: 08/26/17 09:42 Dose: 75 mg Dextrose (Dextrose 50% Inj) 0 ml IV STAT PRN; Protocol PRN Reason: Hypoglycemia Protocol Dextrose (Glutose 15) 0 gm PO ONCE PRN; Protocol PRN Reason: Hypoglycemia Protocol Docusate Sodium (Colace) 100 mg PO TID [facility] Last Admin: 08/26/17 09:43 Dose: 100 mg Famotidine (Pepcid) 20 mg PO DAILY PRN PRN Reason: Heartburn Last Admin: 08/26/17 09:43 Dose: 20 mg Ferric Sodium Gluconate Complex (Ferrlecit) 125 mg IVPB DAILY [facility] Stop: 09/02/17 10:01 Last Admin: 08/26/17 09:39 Dose: 125 mg Gabapentin (Neurontin) 600 mg PO TID [facility] Last Admin: 08/26/17 09:42 Dose: 600 mg Glucagon (Glucagen Diagnostic Kit) 0 mg IM STAT PRN; Protocol PRN Reason: Hypoglycemia Protocol Sodium Chloride (Sodium Chloride 0.9%) 1,000 mls @ 100 mls/hr IV .Q10H [facility] Last Admin: 08/26/17 09:34 Dose: Not Given Dextrose (Dextrose 5% In Water 1000 Ml) 1,000 mls @ 0 mls/hr IV .Q0M PRN; Protocol; Per Protocol PRN Reason: Hypoglycemia Protocol Vancomycin/Sodium Chloride (Vancomycin 1 Gm/Ns 200 Ml) 1 gm in 200 mls @ 133 mls/hr IVPB DAILY [facility] PRN Reason: Protocol Stop: 08/31/17 10:01 Cefepime HCl (Maxipime Iv 1 Gm Premix) 1 gm in 50 mls @ 100 mls/hr IVPB Q12H [facility] PRN Reason: Protocol Last Admin: 08/26/17 06:11 Dose: 100 mls/hr Insulin Human Regular (Novolin R) 0 unit SC Q6H [facility] PRN Reason: Protocol Last Admin: 08/26/17 04:11 Dose: Not Given Losartan Potassium (Cozaar) 25 mg PO DAILY [facility] Last Admin: 08/26/17 09:43 Dose: 25 mg Metoprolol Tartrate (Lopressor) 25 mg PO BID [facility] Last Admin: 08/26/17 09:43 Dose: 25 mg Gcxtv-9-[id number] Ethyl Esters (Lovaza) 1 gm PO DAILY [facility] Last Admin: 08/26/17 09:43 Dose: 1 gm Oxycodone/Acetaminophen (Percocet 5/325 Mg Tab) 2 tab PO Q4H PRN PRN Reason: Pain, severe (8-10) Stop: 08/26/17 21:16 Last Admin: 08/26/17 09:50 Dose: 2 tab Rosuvastatin Calcium (Crestor) 20 mg PO HS [facility] Last Admin: 08/25/17 21:05 Dose: 20 mg - Labs Labs: 08/26/17 06:29 08/26/17 06:29 PT 11.9 SECONDS (9.7-12.2) 08/24/17 07:29 INR 1.1 08/24/17 07:29 APTT 29 SECONDS (21-34) 08/24/17 07:29 - Additional Findings Additional findings: - Constitutional Appears: Well, Non-toxic, No Acute Distress - Head Exam Head Exam: ATRAUMATIC, NORMAL INSPECTION, NORMOCEPHALIC - Eye Exam Eye Exam: EOMI, Normal appearance - ENT Exam ENT Exam: Mucous Membranes Moist - Respiratory Exam Respiratory Exam: NORMAL BREATHING PATTERN. absent: Accessory Muscle Use, Respiratory Distress - Cardiovascular Exam Cardiovascular Exam: RRR, S1, S2; absent: JVD, murmurs - GI/Abdominal Exam GI & Abdominal Exam: Soft. absent: Distended, Firm, Guarding, Rigid, Tenderness - Extremities Exam Additional comments: left LE warm. R Foot dressing CDI. - Neurological Exam Neurological Exam: Alert, Awake, Oriented x3 - Psychiatric Exam Psychiatric exam: Normal Affect, Normal Mood - Skin Skin Exam: Dry, Intact, Normal Color, Warm Assessment and Plan - Assessment and Plan (Free Text) Assessment: 67F with past medical history of DMII, HTN, HLD, PVD, DVT, CAD, s/p amputation of 1st and 2nd digit of right foot on 08/12/17. History of PVD with b/l stents 08/26: S/p Left SFA/Pop atherectomy and Drug elluting balloon angioplasty . POD#2. -08/24 aortofemoral angiogram via right femoral artery. selective catherization of left femoral artery. pathway atherectomy of left sfa/popliteal. DCB balloon angioplasty 5 and 6 mm to sfa and popliteal (stented area,) 7mm balloon to proximal SFA. 2.5 mm to anterior tibial. pressure closure right groin -Vascular Surgery Consult: Dr. Nur -s/p amputation of 1st and 2nd digit of right foot on 08/12/17. Anemia 08/26: Hgb 9.4 -- transfuse to maintain Hgb > 10 (incomplete transfusion yesterday) f/u stool occult transfuse 1 u PRBC 08/24, consent in chart Dr. Banda consulted HTN Continue home meds: norvasc 5 mg daily losartan 25 mg daily lopressor 50 mg daily HLD Crestor 20 mg HS [place] 3 1,000 gm po daily Case discussed with Dr. Christiano Granados, PGY2 <Jb Alvarado - Last Filed: 08/26/17 22:03> Objective - Vital Signs/Intake and Output Vital Signs (last 24 hours): Temp Pulse Resp BP Pulse Ox 98.3 F 58 L 20 143/58 L 95 08/26/17 16:00 08/26/17 16:00 08/26/17 16:00 08/26/17 17:42 08/26/17 16:00 - Labs Labs: 08/26/17 06:29 08/26/17 06:29 PT 11.9 SECONDS (9.7-12.2) 08/24/17 07:29 INR 1.1 08/24/17 07:29 APTT 29 SECONDS (21-34) 08/24/17 07:29 Assessment and Plan - Assessment and Plan (Free Text) Plan: Patient seen and evaluated Plan of care d/w the resident and as documented
--- NOTE | 2017-08-26 11:10 | CP.PCM.PN ---
Subjective - Date & Time of Evaluation Date of Evaluation: 08/26/17 Time of Evaluation: 11:00 - Subjective Subjective: No complaints. Objective - Vital Signs/Intake and Output Vital Signs (last 24 hours): Temp Pulse Resp BP Pulse Ox 98 F 62 20 142/71 96 08/26/17 00:00 08/26/17 00:00 08/26/17 00:00 08/26/17 09:43 08/26/17 00:00 Intake and Output: 08/26/17 08/26/17 06:59 18:59 Intake Total 1840 Balance 1840 - Medications Medications: Current Medications Acetaminophen (Tylenol 325mg Tab) 650 mg PO Q4H PRN PRN Reason: Pain, Mild (1-3) Amlodipine Besylate (Norvasc) 5 mg PO DAILY [facility] Last Admin: 08/26/17 09:43 Dose: 5 mg Apixaban (Eliquis) 2.5 mg PO BID [facility] Last Admin: 08/26/17 09:42 Dose: 2.5 mg Clopidogrel Bisulfate (Plavix) 75 mg PO DAILY [facility] Last Admin: 08/26/17 09:42 Dose: 75 mg Dextrose (Dextrose 50% Inj) 0 ml IV STAT PRN; Protocol PRN Reason: Hypoglycemia Protocol Dextrose (Glutose 15) 0 gm PO ONCE PRN; Protocol PRN Reason: Hypoglycemia Protocol Docusate Sodium (Colace) 100 mg PO TID [facility] Last Admin: 08/26/17 09:43 Dose: 100 mg Famotidine (Pepcid) 20 mg PO DAILY PRN PRN Reason: Heartburn Last Admin: 08/26/17 09:43 Dose: 20 mg Ferric Sodium Gluconate Complex (Ferrlecit) 125 mg IVPB DAILY [facility] Stop: 09/02/17 10:01 Last Admin: 08/26/17 09:39 Dose: 125 mg Gabapentin (Neurontin) 600 mg PO TID [facility] Last Admin: 08/26/17 09:42 Dose: 600 mg Glucagon (Glucagen Diagnostic Kit) 0 mg IM STAT PRN; Protocol PRN Reason: Hypoglycemia Protocol Sodium Chloride (Sodium Chloride 0.9%) 1,000 mls @ 100 mls/hr IV .Q10H [facility] Last Admin: 08/26/17 09:34 Dose: Not Given Dextrose (Dextrose 5% In Water 1000 Ml) 1,000 mls @ 0 mls/hr IV .Q0M PRN; Protocol; Per Protocol PRN Reason: Hypoglycemia Protocol Vancomycin/Sodium Chloride (Vancomycin 1 Gm/Ns 200 Ml) 1 gm in 200 mls @ 133 mls/hr IVPB DAILY [facility] PRN Reason: Protocol Stop: 08/31/17 10:01 Last Admin: 08/26/17 11:07 Dose: 133 mls/hr Cefepime HCl (Maxipime Iv 1 Gm Premix) 1 gm in 50 mls @ 100 mls/hr IVPB Q12H [facility] PRN Reason: Protocol Last Admin: 08/26/17 06:11 Dose: 100 mls/hr Insulin Human Regular (Novolin R) 0 unit SC Q6H [facility] PRN Reason: Protocol Last Admin: 08/26/17 04:11 Dose: Not Given Losartan Potassium (Cozaar) 25 mg PO DAILY [facility] Last Admin: 08/26/17 09:43 Dose: 25 mg Metoprolol Tartrate (Lopressor) 25 mg PO BID [facility] Last Admin: 08/26/17 09:43 Dose: 25 mg [id number] Ethyl Esters (Lovaza) 1 gm PO DAILY [facility] Last Admin: 08/26/17 09:43 Dose: 1 gm Oxycodone/Acetaminophen (Percocet 5/325 Mg Tab) 2 tab PO Q4H PRN PRN Reason: Pain, severe (8-10) Stop: 08/26/17 21:16 Last Admin: 08/26/17 09:50 Dose: 2 tab Rosuvastatin Calcium (Crestor) 20 mg PO [facility] Last Admin: 08/25/17 21:05 Dose: 20 mg - Labs Labs: 08/26/17 06:29 08/26/17 06:29 PT 11.9 SECONDS (9.7-12.2) 08/24/17 07:29 INR 1.1 08/24/17 07:29 APTT 29 SECONDS (21-34) 08/24/17 07:29 - Head Exam Head Exam: ATRAUMATIC - Eye Exam Eye Exam: Normal appearance - ENT Exam ENT Exam: Mucous Membranes Dry - Respiratory Exam Respiratory Exam: NORMAL BREATHING PATTERN - Cardiovascular Exam Cardiovascular Exam: +S1, +S2 - GI/Abdominal Exam GI & Abdominal Exam: Normal Bowel Sounds - Extremities Exam Additional comments: Right foot dressing Assessment and Plan (1) Anemia Assessment & Plan: iron deficiency anemia s/p PRBC transfusion on IV iron suspect chronic GI blood loss consider GI evaluation Status: Chronic (2) DVT (deep venous thrombosis) Assessment & Plan: ? provoked, reports to DVT after undergoing vascular stenting on Eliquis 2.5mg BID Will need to hold anticoagulation if H/H cont. to drop . Status: Acute
--- NOTE | 2017-08-26 12:43 | CP.PCM.PN ---
Subjective - Date & Time of Evaluation Date of Evaluation: 08/26/17 Time of Evaluation: 07:00 - Subjective Subjective: wound growing pseudomonas on zosyn cont same Objective - Vital Signs/Intake and Output Vital Signs (last 24 hours): Temp Pulse Resp BP Pulse Ox 98 F 62 20 142/71 96 08/26/17 00:00 08/26/17 00:00 08/26/17 00:00 08/26/17 09:43 08/26/17 00:00 Intake and Output: 08/26/17 08/26/17 06:59 18:59 Intake Total 1840 Balance 1840 - Medications Medications: Current Medications Acetaminophen (Tylenol 325mg Tab) 650 mg PO Q4H PRN PRN Reason: Pain, Mild (1-3) Amlodipine Besylate (Norvasc) 5 mg PO DAILY [facility] Last Admin: 08/26/17 09:43 Dose: 5 mg Apixaban (Eliquis) 2.5 mg PO BID [facility] Last Admin: 08/26/17 09:42 Dose: 2.5 mg Clopidogrel Bisulfate (Plavix) 75 mg PO DAILY [facility] Last Admin: 08/26/17 09:42 Dose: 75 mg Dextrose (Dextrose 50% Inj) 0 ml IV STAT PRN; Protocol PRN Reason: Hypoglycemia Protocol Dextrose (Glutose 15) 0 gm PO ONCE PRN; Protocol PRN Reason: Hypoglycemia Protocol Docusate Sodium (Colace) 100 mg PO TID [facility] Last Admin: 08/26/17 09:43 Dose: 100 mg Famotidine (Pepcid) 20 mg PO DAILY PRN PRN Reason: Heartburn Last Admin: 08/26/17 09:43 Dose: 20 mg Ferric Sodium Gluconate Complex (Ferrlecit) 125 mg IVPB DAILY [facility] Stop: 09/02/17 10:01 Last Admin: 08/26/17 09:39 Dose: 125 mg Gabapentin (Neurontin) 600 mg PO TID [facility] Last Admin: 08/26/17 09:42 Dose: 600 mg Glucagon (Glucagen Diagnostic Kit) 0 mg IM STAT PRN; Protocol PRN Reason: Hypoglycemia Protocol Sodium Chloride (Sodium Chloride 0.9%) 1,000 mls @ 100 mls/hr IV .Q10H [facility] Last Admin: 08/26/17 09:34 Dose: Not Given Dextrose (Dextrose 5% In Water 1000 Ml) 1,000 mls @ 0 mls/hr IV .Q0M PRN; Protocol; Per Protocol PRN Reason: Hypoglycemia Protocol Vancomycin/Sodium Chloride (Vancomycin 1 Gm/Ns 200 Ml) 1 gm in 200 mls @ 133 mls/hr IVPB DAILY [facility] PRN Reason: Protocol Stop: 08/31/17 10:01 Last Admin: 08/26/17 11:07 Dose: 133 mls/hr Cefepime HCl (Maxipime Iv 1 Gm Premix) 1 gm in 50 mls @ 100 mls/hr IVPB Q12H [facility] PRN Reason: Protocol Last Admin: 08/26/17 06:11 Dose: 100 mls/hr Insulin Human Regular (Novolin R) 0 unit SC Q6H [facility] PRN Reason: Protocol Last Admin: 08/26/17 11:50 Dose: 2 unit Losartan Potassium (Cozaar) 25 mg PO DAILY [facility] Last Admin: 08/26/17 09:43 Dose: 25 mg Metoprolol Tartrate (Lopressor) 25 mg PO BID [facility] Last Admin: 08/26/17 09:43 Dose: 25 mg Mupirocin (Bactroban Ointment) 1 gm TOP DAILY [facility] Last Admin: 08/26/17 12:02 Dose: 1 applic [id number] Ethyl Esters (Lovaza) 1 gm PO DAILY [facility] Last Admin: 08/26/17 09:43 Dose: 1 gm Oxycodone/Acetaminophen (Percocet 5/325 Mg Tab) 2 tab PO Q4H PRN PRN Reason: Pain, severe (8-10) Stop: 08/26/17 21:16 Last Admin: 08/26/17 09:50 Dose: 2 tab Rosuvastatin Calcium (Crestor) 20 mg PO [facility] Last Admin: 08/25/17 21:05 Dose: 20 mg - Labs Labs: 08/26/17 06:29 08/26/17 06:29 PT 11.9 SECONDS (9.7-12.2) 08/24/17 07:29 INR 1.1 08/24/17 07:29 APTT 29 SECONDS (21-34) 08/24/17 07:29 - Constitutional Appears: Non-toxic, Chronically Ill - Head Exam Head Exam: NORMOCEPHALIC - Eye Exam Eye Exam: PERRL - ENT Exam ENT Exam: Mucous Membranes Dry - Neck Exam Neck Exam: absent: Lymphadenopathy - Respiratory Exam Respiratory Exam: Decreased Breath Sounds - Cardiovascular Exam Cardiovascular Exam: REGULAR RHYTHM - GI/Abdominal Exam GI & Abdominal Exam: Distended - Rectal Exam Rectal Exam: Deferred Assessment and Plan (1) DVT (deep venous thrombosis) Status: Acute (2) Toe amputation status Status: Acute (3) PVD (peripheral vascular disease) Status: Chronic (4) MERLINE (acute kidney injury) Status: Acute (5) Arthritis Status: Acute (6) CKD (chronic kidney disease) stage 2, GFR 60-89 ml/min Status: Acute (7) COPD (chronic obstructive pulmonary disease) Status: Acute (8) Cellulitis Status: Acute
[2017-08-26] MEDS ORDERED: Piperacillin/Tazobact 3.375 GM in Sodium Chloride 100 ML IVPB SCH (14:00)
--- NOTE | 2017-08-26 14:53 | CP.PCM.DIS ---
<Fredy Merritt - Last Filed: 08/26/17 15:23> Provider - Provider Date of Admission: 08/23/17 18:28 Attending physician: Dr. Baker Primary care physician: Dr. García Consults: Podiatry: Dr. Nelson Rocha Vascular Surgery: Dr. Nur Infectious Disease: Dr. Quintero Cardiology: Dr. Alvarado Hematology: Dr. Banda Time Spent in preparation of Discharge (in minutes): 45 Diagnosis - Discharge Diagnosis (1) PVD (peripheral vascular disease) Status: Chronic Priority: High (2) Leg ulcer, left Status: Acute Priority: High (3) Diabetes mellitus Status: Chronic Priority: Medium (4) HTN (hypertension) Status: Chronic Priority: Medium (5) History of deep vein thrombosis Status: Chronic Priority: Medium (6) Hyperlipidemia Status: Chronic Priority: Medium Hospital Course - Lab Results Lab Results: Micro Results 08/24/17 15:33 Foot - Right Gram Stain - Final 08/24/17 15:33 Foot - Right Wound Culture - Final Pseudomonas Aeruginosa 08/23/17 18:06 Urine Urine Culture - Final 10-50,000 CFU/ML. MULTIPLE SPECIES. PROBABLE CONTAMINATION. Most Recent Lab Values WBC 5.7 K/uL (4.8-10.8) 08/26/17 06:29 RBC 3.56 Mil/uL (3.80-5.20) L 08/26/17 06:29 Hgb 9.4 g/dL (11.0-16.0) L 08/26/17 06:29 Hct 28.1 % (34.0-47.0) L 08/26/17 06:29 MCV 79.0 fL (81.0-99.0) L 08/26/17 06:29 MCH 26.4 pg (27.0-31.0) L 08/26/17 06:29 MCHC 33.4 g/dL (33.0-37.0) 08/26/17 06:29 RDW 14.4 % (11.5-14.5) 08/26/17 06:29 Plt Count 208 K/uL (130-400) 08/26/17 06:29 MPV 8.5 fL (7.2-11.7) 08/26/17 06:29 Neut % (Auto) 70.1 % (50.0-75.0) 08/26/17 06:29 Lymph % (Auto) 18.7 % (20.0-40.0) L 08/26/17 06:29 Swain % (Auto) 8.5 % (0.0-10.0) 08/26/17 06:29 Eos % (Auto) 2.1 % (0.0-4.0) 08/26/17 06:29 Baso % (Auto) 0.6 % (0.0-2.0) 08/26/17 06: Neut # (Auto) 4.0 K/uL (1.8-7.0) 08/26/17 06: Lymph # (Auto) 1.1 K/uL (1.0-4.3) 08/26/17 06: Swain # (Auto) 0.5 K/uL (0.0-0.8) 08/26/17 06:29 Eos # (Auto) 0.1 K/uL (0.0-0.7) 08/26/17 06: Baso # (Auto) 0.0 K/uL (0.0-0.2) 08/26/17 06:29 ESR 85 mm/hr (0-20) H 08/23/17 22:44 PT 11.9 SECONDS (9.7-12.2) 08/24/17 07:29 INR 1.1 08/24/17 07:29 APTT 29 SECONDS (21-34) 08/24/17 07:29 Sodium 139 mmol/L (132-148) 08/26/17 06:29 Potassium 4.2 mmol/L (3.6-5.2) 08/26/17 06:29 Chloride 104 mmol/L (98-107) 08/26/17 06:29 Carbon Dioxide 26 mmol/L (22-30) 08/26/17 06:29 Anion Gap 13 (10-20) 08/26/17 06:29 BUN 11 mg/dL (7-17) 08/26/17 06:29 Creatinine 0.8 mg/dL (0.7-1.2) 08/26/17 06:29 Est GFR ( Amer) > 60 08/26/17 06:29 Est GFR (Non-Af Amer) > 60 08/26/17 06:29 POC Glucose (mg/dL) 213 mg/dL (65-110) H 08/26/17 11:39 Random Glucose 163 mg/dL (65-105) H 08/26/17 06:29 Calcium 8.7 mg/dl (8.6-10.4) 08/26/17 06:29 Phosphorus 3.8 mg/dL (2.5-4.5) 08/26/17 06:29 Magnesium 2.1 mg/dL (1.6-2.3) 08/26/17 06:29 Total Bilirubin 0.6 mg/dL (0.2-1.3) 08/26/17 06:29 AST 18 U/L (14-36) 08/26/17 06:29 ALT 22 U/L (9-52) 08/26/17 06:29 Alkaline Phosphatase 54 U/L (38-126) 08/26/17 06:29 C-React Prot High Sens 4.02 mg/L (1.00-3.00) H 08/23/17 22:44 Total Protein 6.2 g/dL (6.3-8.3) L 08/26/17 06:29 Albumin 2.9 g/dL (3.5-5.0) L 08/26/17 06:29 Globulin 3.3 gm/dL (2.2-3.9) 08/26/17 06:29 Albumin/Globulin Ratio 0.9 (1.0-2.1) L 08/26/17 06:29 Procalcitonin 0.05 NG/ML (0.19-0.49) L 08/24/17 07:29 Urine Color Yellow (YELLOW) 08/23/17 18:39 Urine Clarity Clear (Clear) 08/23/17 18:39 Urine pH 5.0 (5.0-8.0) 08/23/17 18:39 Ur Specific Kinney 1.017 (1.003-1.030) 08/23/17 18:39 Urine Protein Negative mg/dL (NEGATIVE) 08/23/17 18:39 Urine Glucose (UA) 3+ mg/dL (Normal) H 08/23/17 18:39 Urine Ketones Negative mg/dL (NEGATIVE) 08/23/17 18:39 Urine Blood Negative (NEGATIVE) 08/23/17 18:39 Urine Nitrate Negative (NEGATIVE) 08/23/17 18:39 Urine Bilirubin Negative (NEGATIVE) 08/23/17 18:39 Urine Urobilinogen Normal mg/dL (0.2-1.0) 08/23/17 18:39 Ur Leukocyte Esterase Neg Mariam/uL (Negative) 08/23/17 18:39 Urine WBC (Auto) 1 /hpf (0-5) 08/23/17 18:39 Urine RBC (Auto) 2 /hpf (0-3) 08/23/17 18:39 Ur Squamous Epith Cells < 1 /hpf (0-5) 08/23/17 18:39 Blood Type B POSITIVE 08/24/17 07:29 Antibody Screen Negative 08/24/17 07:29 - Hospital Course Hospital Course: Initial note: "Patient is a 67 y/o F with PMHx of DMII, HTN, HLD, PVD, DVT, CAD, s/p amputation of 1st and 2nd digit of right foot on 08/12/17 who presents today for scheduled angiogram with Dr. Nur tomorrow. Patient has been having increasing pain in her left foot for the past few weeks and has two wounds. Patient says the pain is worst when she puts pressure on the foot and rates it 10/10. Patient also has some pain in her right foot in the area of the amputation. Patient is taking Percocet for the pain usually at night which helps. Patient is currently at a rehab center and his been getting all of her medications daily. Patient admits to constipation and has not had a bowel movement in a few days. Patient has not been sick recently. Patient denies any fevers, shortness of breath, chest pain, abdominal pain, nausea, vomiting or diarrhea." Hospital Course: Patient admitted due to scheduled angiogram due to PVD. On 08/24/17 the following was performed: aortofemoral angiogram via right femoral artery, selective catheterization of left femoral artery, pathway atherectomy of left sfa/popliteal, DCB balloon angioplasty 5 and 6 mm to sfa and popliteal (stented area) 7mm balloon to proximal sfa, 2.5 mm to anterior tibial. Wound cultures of the left leg ulcers grew pseudomonas. Patient was previously on Vancomycin and Cefepime and was discharged on 10 days of Zosyn through the mid line for pseudomonal coverage. She is to follow up with Dr. Rocha, Dr. Nur, and Dr. García. This is a summary of the hospital course. For more information, refer to the medical records. Discharge Exam - Additional Findings Additional findings: - Constitutional Appears: No Acute Distress - Head Exam Head Exam: ATRAUMATIC, NORMAL INSPECTION, NORMOCEPHALIC - Eye Exam Eye Exam: EOMI, Normal appearance - ENT Exam ENT Exam: Mucous Membranes Moist, Normal Exam - Neck Exam Neck Exam: Full ROM, Normal Inspection. absent: Tenderness, Thyromegaly - Cardiovascular Exam Cardiovascular Exam: REGULAR RHYTHM, +S1, +S2. absent: Bradycardia, Tachycardia - GI/Abdominal Exam GI & Abdominal Exam: Soft, Tenderness (lower abdomen ), Normal Bowel Sounds. absent: Firm, Guarding, Rigid, Rebound - Extremities Exam Extremities Exam: Full ROM. absent: Pedal Edema Additional comments: left arm midline catheter in place left foot ulcer over the 5th metatarsal region and healing ulcer below medial malleolus right foot wrapped in dressing s/p 1st and 2nd digit amputation - Back Exam Back Exam: Full ROM, NORMAL INSPECTION - Neurological Exam Neurological Exam: Awake, CN II-XII Intact, Normal Gait, Oriented x3 - Psychiatric Exam Psychiatric exam: Normal Affect, Normal Mood - Skin Skin Exam: Dry, Normal Color, Warm Discharge Plan - Follow Up Plan Condition: STABLE Disposition: NURSING FACILITY MEDICAID CERT Instructions: Peripheral Vascular (Arterial) Disease (DC), Deep Vein Thrombosis (Blood Clots in the Legs) (DC) Additional Instructions: Please follow up with Dr. Nelson Rocha on your next appointment on Tuesday. Please follow up with Dr. Nur in 2 weeks. Please follow up with your primary doctor after discharge from rehab. Please continue the antibiotic Zosyn 3.375 gm Q8H for 10 days. Please continue medications as per medication reconciliation list. If there are any new or worsening symptoms, please return to the emergency room. Referrals: Lisbeth Delaney DO [Staff Provider] - Joseph Nur Jr., MD [Staff Provider] - Nelson Rocha DPM [Staff Provider] - <Luis Alberto Baker - Last Filed: 08/26/17 18:40> Provider - Provider Date of Admission: 08/23/17 18:28 Attending physician: Nilson Melchor MD Hospital Course - Lab Results Lab Results: Micro Results 08/24/17 15:33 Foot - Right Gram Stain - Final 08/24/17 15:33 Foot - Right Wound Culture - Final Pseudomonas Aeruginosa 08/23/17 18:06 Urine Urine Culture - Final 10-50,000 CFU/ML. MULTIPLE SPECIES. PROBABLE CONTAMINATION. Most Recent Lab Values WBC 5.7 K/uL (4.8-10.8) 08/26/17 06: RBC 3.56 Mil/uL (3.80-5.20) L 08/26/17 06:29 Hgb 9.4 g/dL (11.0-16.0) L 08/26/17 06: Hct 28.1 % (34.0-47.0) L 08/26/17 06: MCV 79.0 fL (81.0-99.0) L 08/26/17 06: MCH 26.4 pg (27.0-31.0) L 08/26/17 06: MCHC 33.4 g/dL (33.0-37.0) 08/26/17 06: RDW 14.4 % (11.5-14.5) 08/26/17 06: Plt Count 208 K/uL (130-400) 08/26/17 06:29 MPV 8.5 fL (7.2-11.7) 08/26/17 06:29 Neut % (Auto) 70.1 % (50.0-75.0) 08/26/17 06: Lymph % (Auto) 18.7 % (20.0-40.0) L 08/26/17 06: Swain % (Auto) 8.5 % (0.0-10.0) 08/26/17 06: Eos % (Auto) 2.1 % (0.0-4.0) 08/26/17 06: Baso % (Auto) 0.6 % (0.0-2.0) 08/26/17 06:29 Neut # (Auto) 4.0 K/uL (1.8-7.0) 08/26/17 06: Lymph # (Auto) 1.1 K/uL (1.0-4.3) 08/26/17 06:29 Swain # (Auto) 0.5 K/uL (0.0-0.8) 08/26/17 06:29 Eos # (Auto) 0.1 K/uL (0.0-0.7) 08/26/17 06:29 Baso # (Auto) 0.0 K/uL (0.0-0.2) 08/26/17 06:29 ESR 85 mm/hr (0-20) H 08/23/17 22:44 PT 11.9 SECONDS (9.7-12.2) 08/24/17 07:29 INR 1.1 08/24/17 07:29 APTT 29 SECONDS (21-34) 08/24/17 07:29 Sodium 139 mmol/L (132-148) 08/26/17 06:29 Potassium 4.2 mmol/L (3.6-5.2) 08/26/17 06:29 Chloride 104 mmol/L (98-107) 08/26/17 06:29 Carbon Dioxide 26 mmol/L (22-30) 08/26/17 06:29 Anion Gap 13 (10-20) 08/26/17 06:29 BUN 11 mg/dL (7-17) 08/26/17 06:29 Creatinine 0.8 mg/dL (0.7-1.2) 08/26/17 06:29 Est GFR ( Amer) > 60 08/26/17 06:29 Est GFR (Non-Af Amer) > 60 08/26/17 06:29 POC Glucose (mg/dL) 213 mg/dL (65-110) H 08/26/17 11:39 Random Glucose 163 mg/dL (65-105) H 08/26/17 06:29 Calcium 8.7 mg/dl (8.6-10.4) 08/26/17 06:29 Phosphorus 3.8 mg/dL (2.5-4.5) 08/26/17 06:29 Magnesium 2.1 mg/dL (1.6-2.3) 08/26/17 06:29 Total Bilirubin 0.6 mg/dL (0.2-1.3) 08/26/17 06:29 AST 18 U/L (14-36) 08/26/17 06:29 ALT 22 U/L (9-52) 08/26/17 06:29 Alkaline Phosphatase 54 U/L (38-126) 08/26/17 06:29 C-React Prot High Sens 4.02 mg/L (1.00-3.00) H 08/23/17 22:44 Total Protein 6.2 g/dL (6.3-8.3) L 08/26/17 06:29 Albumin 2.9 g/dL (3.5-5.0) L 08/26/17 06:29 Globulin 3.3 gm/dL (2.2-3.9) 08/26/17 06:29 Albumin/Globulin Ratio 0.9 (1.0-2.1) L 08/26/17 06:29 Procalcitonin 0.05 NG/ML (0.19-0.49) L 08/24/17 07:29 Urine Color Yellow (YELLOW) 08/23/17 18:39 Urine Clarity Clear (Clear) 08/23/17 18:39 Urine pH 5.0 (5.0-8.0) 08/23/17 18:39 Ur Specific Kinney 1.017 (1.003-1.030) 08/23/17 18:39 Urine Protein Negative mg/dL (NEGATIVE) 08/23/17 18:39 Urine Glucose (UA) 3+ mg/dL (Normal) H 08/23/17 18:39 Urine Ketones Negative mg/dL (NEGATIVE) 08/23/17 18:39 Urine Blood Negative (NEGATIVE) 08/23/17 18:39 Urine Nitrate Negative (NEGATIVE) 08/23/17 18:39 Urine Bilirubin Negative (NEGATIVE) 08/23/17 18:39 Urine Urobilinogen Normal mg/dL (0.2-1.0) 08/23/17 18:39 Ur Leukocyte Esterase Neg Mariam/uL (Negative) 08/23/17 18:39 Urine WBC (Auto) 1 /hpf (0-5) 08/23/17 18:39 Urine RBC (Auto) 2 /hpf (0-3) 08/23/17 18:39 Ur Squamous Epith Cells < 1 /hpf (0-5) 08/23/17 18:39 Blood Type B POSITIVE 08/24/17 07:29 Antibody Screen Negative 08/24/17 07:29 Attending/Attestation - Attestation I have personally seen and examined this patient.: Yes I have fully participated in the care of the patient.: Yes I have reviewed all pertinent clinical information, including history, physical exam and plan: Yes Notes (Text): 08/26/17 18:34 Medical attending: Patient was seen and examined by me. Agree with the above note by the resident The patient previously had an MRI to assess for the possibility of osteomylitis of the foot. The MRI returned and this was shown to be negative for osteomylitis. While here she also underwent angiograpghy of the right femoral artery and had balloning and stenting done. The procedure was successful. She reported her foot feeling much warmer and less tenderness than previous. The wound cultures from the left left showed + pseudomonas growth and so she will need to remain on Zosyn once she leaves from here. thank you Luis Alberto Baker
[2017-08-26 16:20] VITALS: BP 143/58; PULSE 58; TEMP 98.3; O2SAT 95
--- NOTE | 2017-08-26 20:40 | CP.PCM.CON ---
History of Present Illness - History of Present Illness History of Present Illness: CC: left foot ulcers HPI: Patient is a 67 y/o F with PMHx of DMII, HTN, HLD, PVD, DVT, CAD, s/p amputation of 1st and 2nd digit of right foot on 08/12/17 who presents today for scheduled angiogram with Dr. Nur tomorrow. Patient has been having increasing pain in her left foot for the past few weeks and has two wounds. Patient says the pain is worst when she puts pressure on the foot and rates it 10/10. Patient also has some pain in her right foot in the area of the amputation. Patient is taking Percocet for the pain usually at night which helps. Patient is currently at a rehab center and his been getting all of her medications daily. Patient admits to constipation and has not had a bowel movement in a few days. Patient has not been sick recently. Patient denies any fevers, shortness of breath, chest pain, abdominal pain, nausea, vomiting or diarrhea. PMD: Dr. García Cardio: Dr. Alvarado Podiatry: Dr. Rocha Vascular: Dr. Nur PMHx: DM, HTN, HLD, PVD, DVT, CAD Social Hx: pack daily for +40 years; denies alcohol and illicit drug use Allergies: seasonal Surgery: peripheral lower extremity stents bilaterally, coronary stent (x1), tonsillectomy, FHx: mother DMII; sister at 27 y/o due to salivary gland CA; brothers due to lymphoma and [place] Meds: glipizide, metformin, gabapentin, atorvastatin, metoprolol, amlodipine, losartan, eliquis, aspirin, Pepcid, Januvia, tramadol, omega 3 Past Patient History - Infectious Disease Hx of Infectious Diseases: None - Past Medical History & Family History Past Medical History?: Yes - Past Social History Smoking Status: Light Smoker < 10 Cigarettes Daily - CARDIAC Hx Hypercholesterolemia: Yes Hx Hypertension: Yes - PULMONARY Hx Respiratory Disorders: No - HEENT Hx Cataracts: Yes (BILAT. ) - RENAL Hx Chronic Kidney Disease: No - ENDOCRINE/METABOLIC Hx Endocrine Disorders: Yes Hx Diabetes Mellitus Type 2: Yes - HEMATOLOGICAL/ONCOLOGICAL Hx Anemia: Yes - INTEGUMENTARY Hx Dermatological Problems: No - MUSCULOSKELETAL/RHEUMATOLOGICAL Hx Arthritis: Yes - GASTROINTESTINAL Hx Gastrointestinal Disorders: No - GENITOURINARY/GYNECOLOGICAL Hx Genitourinary Disorders: No - PSYCHIATRIC Hx Substance Use: No - SURGICAL HISTORY Hx Coronary Stent: Yes (X1) Hx Tonsillectomy: Yes - ANESTHESIA Hx Anesthesia: Yes Hx Anesthesia Reactions: No Hx Malignant Hyperthermia: No Meds Home Medications: Home Medication List Medication Instructions Recorded Confirmed Type Clopidogrel [Plavix] 75 mg PO DAILY tab 08/26/17 Rx Docusate [Colace] 100 mg PO TID cap 08/26/17 Rx Metoprolol Tartrate [Lopressor] 25 mg PO BID tab 08/26/17 Rx Piperacillin/Tazobact [Zosyn] 3.375 gm IVPB Q8H 10 Days vial 08/26/17 Rx Allergies/Adverse Reactions: Allergies Allergy/AdvReac Type Severity Reaction Status Date / Time No Known Allergies Allergy Verified 08/23/17 17:06 Results - Vital Signs Recent Vital Signs: Last Vital Signs Temp 98.3 F 08/26/17 16:00 Pulse 58 L 08/26/17 16:00 Resp 20 08/26/17 16:00 BP 143/58 L 08/26/17 17:42 Pulse Ox 95 08/26/17 16:00 - Labs Result Diagrams: 08/26/17 06:29 08/26/17 06:29 Labs: Laboratory Results - last 24 hr 08/26/17 08/26/17 08/26/17 04:07 06:29 06:29 WBC 5.7 RBC 3.56 L Hgb 9.4 L Hct 28.1 L MCV 79.0 L MCH 26.4 L MCHC 33.4 RDW 14.4 Plt Count 208 MPV 8.5 Neut % (Auto) 70.1 Lymph % (Auto) 18.7 L [place] % (Auto) 8.5 Eos % (Auto) 2.1 Baso % (Auto) 0.6 Neut # (Auto) 4.0 Lymph # (Auto) 1.1 [place] # (Auto) 0.5 Eos # (Auto) 0.1 Baso # (Auto) 0.0 Sodium 139 Potassium 4.2 Chloride 104 Carbon Dioxide 26 Anion Gap 13 BUN 11 Creatinine 0.8 Est GFR ( Amer) > 60 Est GFR (Non-Af Amer) > 60 POC Glucose (mg/dL) 156 H Random Glucose 163 H Calcium 8.7 Phosphorus 3.8 Magnesium 2.1 Total Bilirubin 0.6 AST 18 ALT 22 Alkaline Phosphatase 54 Total Protein 6.2 L Albumin 2.9 L Globulin 3.3 Albumin/Globulin Ratio 0.9 L 08/26/17 11:39 WBC RBC Hgb Hct MCV MCH MCHC RDW Plt Count MPV Neut % (Auto) Lymph % (Auto) [place] % (Auto) Eos % (Auto) Baso % (Auto) Neut # (Auto) Lymph # (Auto) [place] # (Auto) Eos # (Auto) Baso # (Auto) Sodium Potassium Chloride Carbon Dioxide Anion Gap BUN Creatinine Est GFR ( Amer) Est GFR (Non-Af Amer) POC Glucose (mg/dL) 213 H Random Glucose Calcium Phosphorus Magnesium Total Bilirubin AST ALT Alkaline Phosphatase Total Protein Albumin Globulin Albumin/Globulin Ratio Assessment & Plan - Assessment and Plan (Free Text) Assessment: History of PVD with b/l stents patient for angiogram b/l legs in am with Dr. Nur NPO past midnight Left foot ulcers with pain continue Percocet 5/325mg po 2 tab q4h prn pain MRI w/out contrast of L foot to r/o osteomyelitis consult podiatry, Dr. Rocha, help appreciated f/u ESR, CRP, and Procalcitonin DM Accuchecks ISS low dose hypoglycemic protocol continue gabapentin 600 mg BID hold metformin, januvia, and glipizide HTN Continue home meds: norvasc 5 mg daily losartan 25 mg daily lopressor 50 mg daily HLD Crestor 20 mg HS [place] 3 1,000 gm po daily Constipation Colace 100mg po TID History of DVT hold home eliquis for surgery - will await surgery recs PPX GI: pepcid 20 mg daily DVT: will await recs from podiatry 67 F has h/o CAD, PVD, tobacco abuse, recent cta showing not patent L SFA stent and left popletial artery brought in by vascular surg for angio and intervention , patient has 2 ulcers on the left foot, with tender left 5th metatarsal at and beyond ulcer with swelling, calcaneal ulcer and tenderness also noticed, poor pulses, and sensation in left toes. Plan Continue with scheduled angio MRI to r/o OM hold abx till om confirmed and start abx post biopsy of bone if + Hold on eliquis till angio done IVF prior to procedure to hydrate kidneys See orders for detail.
== END 2017-08-26 20:03 | DRG 271 ==
LOC: C.ER 16:46 → C.9E 18:28 → C.3T 19:15
PROVIDERS: ADMIT Internal Medicine; ATTEND Internal Medicine
PROC: 04CN3ZZ Extirpation of Matter from Left Popliteal Artery, Percutaneous Approach (ICD-10-PCS; principal; 2017-08-24)
PROC: 04CL3ZZ Extirpation of Matter from Left Femoral Artery, Percutaneous Approach (ICD-10-PCS; 2017-08-24)
PROC: 047L3ZZ Dilation of Left Femoral Artery, Percutaneous Approach (ICD-10-PCS; 2017-08-24)
PROC: 047N3ZZ Dilation of Left Popliteal Artery, Percutaneous Approach (ICD-10-PCS; 2017-08-24)
DX: E11.52 Type 2 diabetes mellitus with diabetic peripheral angiopathy with gangrene (principal); N17.9 Acute kidney failure, unspecified; E11.22 Type 2 diabetes mellitus with diabetic chronic kidney disease; E11.621 Type 2 diabetes mellitus with foot ulcer; L97.409 Non-pressure chronic ulcer of unspecified heel and midfoot with unspecified severity; D50.9 Iron deficiency anemia, unspecified; B96.5 Pseudomonas (aeruginosa) (mallei) (pseudomallei) as the cause of diseases classified elsewhere; E78.5 Hyperlipidemia, unspecified; I12.9 Hypertensive chronic kidney disease with stage 1 through stage 4 chronic kidney disease, or unspecified chronic kidney disease; I25.10 Atherosclerotic heart disease of native coronary artery without angina pectoris; I48.91 Unspecified atrial fibrillation; J44.9 Chronic obstructive pulmonary disease, unspecified; K59.00 Constipation, unspecified; L97.529 Non-pressure chronic ulcer of other part of left foot with unspecified severity; N18.2 Chronic kidney disease, stage 2 (mild); Z87.891 Personal history of nicotine dependence; Z89.429 Acquired absence of other toe(s), unspecified side; Z91.19 Patient's noncompliance with other medical treatment and regimen; Z95.5 Presence of coronary angioplasty implant and graft

== ENCOUNTER 2018-01-11 08:43 | Inpatient (IN) | payer MEDICARE, MEDICAID ==
[2018-01-11 08:43] VITALS: BMI 28.5
[2018-01-11 10:23] LABS: BASO % 0.9 % (0.0-2.0); EOS # 0.1 K/uL (0.0-0.7); EOS % 2.3 % (0.0-4.0); HEMOGLOBIN 10.5 g/dL (11.0-16.0); LYMPH # 1.1 K/uL (1.0-4.3); MEAN CELL VOLUME 82.6 fL (81.0-99.0); MEAN CORPUSCULAR HEMOGLOBIN 27.6 pg (27.0-31.0); MEAN CORPUSCULAR HGB CONC 33.4 g/dL (33.0-37.0); MONO # 0.3 K/uL (0.0-0.8); MONO % 7.8 % (0.0-10.0); NEUT # 2.8 K/uL (1.8-7.0); NRBC % 0.1 % (0.0-2.0); RBC 3.8 Mil/uL (3.80-5.20); RED CELL DISTRIBUTION WIDTH 14.4 % (11.5-14.5); WHITE BLOOD COUNT 4.3 K/uL (4.8-10.8)
[2018-01-11 10:30] LABS: INR 0.9; PROTHROMBIN TIME 10.3 SECONDS (9.7-12.2)
--- NOTE | 2018-01-11 10:36 | CP.PCM.CON ---
History of Present Illness - History of Present Illness History of Present Illness: Podiatry Consult Note - Dr. Rocha 68 y/o female seen at bedside today for evaluation of right foot ulceration. Pt states she was sent to the hospital by Dr. Rocha for preoperative evaluation. She states that she noticed the wound reopening over the last week or two and understands that revision of the amputation may be needed. She denies any recent changes to her medical history. Denies any pain to the R foot. Denies F/C /N/V/CP/SOB PMH: CAD, PVD, HTN PSH: cardiac stents, leg stents, R foot 1st and 2nd digit amputations All: NKDA Review of Systems - Review of Systems All systems: reviewed and no additional remarkable complaints except (per HPI) Past Patient History - Infectious Disease Hx of Infectious Diseases: None - Past Medical History & Family History Past Medical History?: Yes - Past Social History Smoking Status: Former Smoker - CARDIAC Hx Cardiac Disorders: Yes Hx Hypercholesterolemia: Yes Hx Hypertension: Yes - PULMONARY Hx Respiratory Disorders: No - HEENT Hx HEENT Problems: Yes Hx Cataracts: Yes (BILAT. ) - RENAL Hx Chronic Kidney Disease: No - ENDOCRINE/METABOLIC Hx Endocrine Disorders: Yes Hx Diabetes Mellitus Type 2: Yes - HEMATOLOGICAL/ONCOLOGICAL Hx Blood Disorders: Yes Hx Anemia: Yes - INTEGUMENTARY Hx Dermatological Problems: No - MUSCULOSKELETAL/RHEUMATOLOGICAL Hx Musculoskeletal Disorders: Yes Hx Arthritis: Yes - GASTROINTESTINAL Hx Gastrointestinal Disorders: No - GENITOURINARY/GYNECOLOGICAL Hx Genitourinary Disorders: No - PSYCHIATRIC Hx Substance Use: No - SURGICAL HISTORY Hx Surgeries: Yes Hx Amputation: Yes (Right toes) Hx Coronary Stent: Yes (X1) Hx Tonsillectomy: Yes - ANESTHESIA Hx Anesthesia: Yes Hx Anesthesia Reactions: No Hx Malignant Hyperthermia: No Meds Allergies/Adverse Reactions: Allergies Allergy/AdvReac Type Severity Reaction Status Date / Time No Known Allergies Allergy Verified 08/23/17 17:06 Physical Exam - Constitutional Appears: Well, Non-toxic, No Acute Distress - Extremities Exam Additional comments: RLE focused exam: Vasc: DP/PT pulses palpable 1/4. Temperature gradient warm to cool. CFT < 3 sec x 3 digits. No pedal edema Derm: Open linear ulceration noted to 1st and 2nd digit amputation site with serosanguinous drainage noted. No malodor, no dana wound erythema, no fluctuance , no undermining or tunneling Neuro: Protective sensation grossly intact Ortho: no tenderness to palpation of ulcer site - Neurological Exam Neurological exam: Alert, Oriented x3 - Psychiatric Exam Psychiatric exam: Normal Affect, Normal Mood Results - Vital Signs Recent Vital Signs: Last Vital Signs Temp 98.4 F 01/11/18 09:28 Pulse 60 01/11/18 09:28 Resp 20 01/11/18 09:28 BP 129/73 01/11/18 09:28 Pulse Ox 98 01/11/18 09:28 - Labs Result Diagrams: 01/11/18 10:14 01/11/18 20:51 Labs: Laboratory Results - last 24 hr 01/11/18 01/11/18 10:14 10:14 WBC 4.3 L RBC 3.80 Hgb 10.5 L Hct 31.4 L MCV 82.6 D MCH 27.6 MCHC 33.4 RDW 14.4 Plt Count 147 MPV 9.0 Neut % (Auto) 64.0 Lymph % (Auto) 25.0 [place] % (Auto) 7.8 Eos % (Auto) 2.3 Baso % (Auto) 0.9 Neut # (Auto) 2.8 Lymph # (Auto) 1.1 [place] # (Auto) 0.3 Eos # (Auto) 0.1 Baso # (Auto) 0.0 PT 10.3 INR 0.9 APTT 33 Assessment & Plan - Assessment and Plan (Free Text) Assessment: 68 y/o female with right foot non-healing ulcer s/p amputation of 1st and 2nd digits Plan: Pt seen and evaluated at bedside Discussed with attending Dr. Rocha Vascular Dr. Nur on board, appreciate recommendations preoperatively prior to surgical intervention Continue IV abx Wound cleaned with saline and dressed with xeroform, DSD Pt to go to OR on Tuesday for revisional amputation of R foot 1st and 2nd digit amps Will continue to follow
--- NOTE | 2018-01-11 10:48 | C.PDOC ---
History Of Present Illness 68 y/o female with history of DM presents to ED sent by Dr. Rocha for no healing ulcer to right toe. 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 Dr. Rocha sent patient for OR admission. Patient denies fever, chills or any other complaints at this time. Time Seen by Provider: 01/11/18 09:32 Chief Complaint (Nursing): Abnormal Skin Integrity History Per: Patient History/Exam Limitations: no limitations Onset/Duration Of Symptoms: Days Current Symptoms Are (Timing): Still Present Past Medical History Reviewed: Historical Data, Nursing Documentation, Vital Signs Vital Signs: Last Vital Signs Temp 98.4 F 01/11/18 09:28 Pulse 60 01/11/18 09:28 Resp 20 01/11/18 09:28 BP 129/73 01/11/18 09:28 Pulse Ox 98 01/11/18 11:11 - Medical History PMH: Anemia, Arthritis, Back Problems (sciatica), CAD, Diabetes, HTN, Hypercholesterolemia Surgical History: Coronary Stent (X1), Tonsillectomy - [facility] ARTHROCENTESIS (07/18/14) DETACHMENT AT RIGHT FOOT, PARTIAL 1ST RAY, OPEN APPROACH (08/08/17) DETACHMENT AT RIGHT FOOT, PARTIAL 2ND RAY, OPEN APPROACH (08/08/17) DILATE R FEM ART W DRUG-ELUT INTRA, DRUG BLLN, PERC (12/08/16) DILATION OF L FEM ART WITH DRUG-ELUT INTRALUM, PERC APPROACH (10/14/15) DILATION OF LEFT EXTERNAL ILIAC VEIN, PERCUTANEOUS APPROACH (11/04/15) DILATION OF LEFT FEMORAL ARTERY, PERCUTANEOUS APPROACH (08/23/17) DILATION OF LEFT FEMORAL VEIN, PERCUTANEOUS APPROACH (11/04/15) DILATION OF LEFT POPLITEAL ARTERY, PERCUTANEOUS APPROACH (08/23/17) DILATION OF R FEM ART WITH INTRALUM DEV, PERC APPROACH (10/28/15) DILATION OF R POPL ART WITH INTRALUM DEV, PERC APPROACH (10/28/15) DILATION OF RIGHT ANTERIOR TIBIAL ARTERY, PERC APPROACH (03/07/16) DILATION OF RIGHT FEMORAL ARTERY, PERCUTANEOUS APPROACH (03/07/16) DILATION OF RIGHT POPLITEAL ARTERY, PERCUTANEOUS APPROACH (12/08/16) EXTIRPATION OF MATTER FROM L EXT ILIAC VEIN, PERC APPROACH (11/04/15) EXTIRPATION OF MATTER FROM L FEM ART, PERC APPROACH (08/23/17) EXTIRPATION OF MATTER FROM L POPL ART, PERC APPROACH (08/23/17) EXTIRPATION OF MATTER FROM LEFT FEMORAL VEIN, PERC APPROACH (11/04/15) EXTIRPATION OF MATTER FROM R FEM ART, PERC APPROACH (10/28/15) INTRODUCE OTH THROMBOLYTIC IN CENTRAL VEIN, PERC (12/08/16) INTRODUCE OTH THROMBOLYTIC IN PERIPH VEIN, PERC (11/04/15) TRANSFUSE NONAUT RED BLOOD CELLS IN PERIPH VEIN, PERC (11/04/15) VACCINATION NEC (03/02/14) Family History: States: Diabetes - Social History Hx Tobacco Use: Yes Hx Alcohol Use: No Hx Substance Use: No - Immunization History Hx Tetanus Toxoid Vaccination: No Hx Influenza Vaccination: No Hx Pneumococcal Vaccination: Yes Review Of Systems Except As Marked, All Systems Reviewed And Found Negative. Musculoskeletal: Positive for: Foot Pain (ulcer) Physical Exam - Physical Exam Appears: Non-toxic, No Acute Distress Skin: Warm, Dry, No Rash, Other (non healing ulcer to web space between 1st and 2nd toes on right foot) Head: Atraumatic, Normacephalic Eye(s): bilateral: Normal Inspection Oral Mucosa: Moist Neck: Supple Cardiovascular: Rhythm Regular Respiratory: Normal Breath Sounds, No Rales, No Rhonchi, No Wheezing Gastrointestinal/Abdominal: Soft, No Tenderness, No Guarding, No Rebound Extremity: Capillary Refill (<2 seconds), Other (1st and 2nd toe on right foot amputated. ) Pulses: Right Dorsalis Pedis: Normal Neurological/Psych: Oriented x3, Normal Motor, Normal Sensation ED Course And Treatment - Laboratory Results Result Diagrams: 01/11/18 10:14 01/11/18 10:14 ECG: Interpreted By Me, Viewed By Me ECG Rhythm: Sinus Rhythm Interpretation Of ECG: Poor R wave progression, T wave inversion V4-V6 Rate From EC (BPM) O2 Sat by Pulse Oximetry: 98 (RA) Pulse Ox Interpretation: Normal Medical Decision Making Medical Decision Making: Assessment: Diabetic foot Progress: Admitted to Dr. Gomez On consult Dr. Jimenez, Dr. Rocha and Dr. Quintero Disposition Discussed With : Brad Gomez Counseled Patient/Family Regarding: Studies Performed, Diagnosis - Disposition Disposition: HOSPITALIZED Disposition Time: 10:30 Condition: FAIR Forms: [facility] (Palestinian) - Clinical Impression Clinical Impression: Diabetic foot ulcer, Diabetic foot infection - Scribe Statement The provider has reviewed the documentation as recorded by the Scribdanial Parr All medical record entries made by the Scribe were at my direction and personally dictated by me. I have reviewed the chart and agree that the record accurately reflects my personal performance of the history, physical exam, medical decision making, and the department course for this patient. I have also personally directed, reviewed, and agree with the discharge instructions and disposition.
[2018-01-11 10:51] LABS: ALB/GLOB RATIO 1.4 (1.0-2.1); ALBUMIN 4.1 g/dL (3.5-5.0); ALT/SGPT 24 U/L (9-52); AST/SGOT 21 U/L (14-36); BLOOD UREA NITROGEN 25 mg/dL (7-17); CALCIUM 9.7 mg/dl (8.6-10.4); GFR NON-AFRICAN AMERICAN 55
--- NOTE | 2018-01-11 11:23 | RAD ---
Date of service: 01/11/2018 PROCEDURE: CHEST RADIOGRAPH, 1 VIEW HISTORY: SOB COMPARISON: 08/08/2017. FINDINGS: LUNGS: The lungs are well inflated and clear. PLEURA: No pneumothorax or pleural fluid seen. CARDIOVASCULAR: Normal. OSSEOUS STRUCTURES: No significant abnormalities. VISUALIZED UPPER ABDOMEN: Normal. OTHER FINDINGS: None. IMPRESSION: No active pulmonary disease.
--- NOTE | 2018-01-11 12:49 | RAD ---
Date of service: 01/11/2018 PROCEDURE: Right Foot Radiographs. HISTORY: toe pain COMPARISON: 11/08/2017 FINDINGS: BONES: No acute fracture. Status post amputation distal aspect 1st and 2nd metatarsals. Unchanged in appearance compared to 11/08/2017. No osseous erosion or periosteal reaction appreciated. JOINTS: Normal. SOFT TISSUES: Vascular calcification noted. OTHER FINDINGS: None. IMPRESSION: Amputations of 1st and 2nd digits. No evidence of osteomyelitis.
--- NOTE | 2018-01-11 15:40 | CP.PCM.CON ---
History of Present Illness - History of Present Illness History of Present Illness: 68 y/o female with history of DM presents to ED sent by Dr. Rocha for no healing ulcer to right toe. 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 Dr. Rocha sent patient for OR admission. Patient denies fever, chills or any other complaints at this time. severe pvd needs vascular re-eval , mri possible debridement , woound care - Medical History PMH: Anemia, Arthritis, Back Problems (sciatica), CAD, Diabetes, HTN, Hypercholesterolemia Surgical History: Coronary Stent (X1), Tonsillectomy - [facility] Procedures ARTHROCENTESIS (07/18/14) DETACHMENT AT RIGHT FOOT, PARTIAL 1ST RAY, OPEN APPROACH (08/08/17) DETACHMENT AT RIGHT FOOT, PARTIAL 2ND RAY, OPEN APPROACH (08/08/17) DILATE R FEM ART W DRUG-ELUT INTRA, DRUG BLLN, PERC (12/08/16) DILATION OF L FEM ART WITH DRUG-ELUT INTRALUM, PERC APPROACH (10/14/15) DILATION OF LEFT EXTERNAL ILIAC VEIN, PERCUTANEOUS APPROACH (11/04/15) DILATION OF LEFT FEMORAL ARTERY, PERCUTANEOUS APPROACH (08/23/17) DILATION OF LEFT FEMORAL VEIN, PERCUTANEOUS APPROACH (11/04/15) DILATION OF LEFT POPLITEAL ARTERY, PERCUTANEOUS APPROACH (08/23/17) DILATION OF R FEM ART WITH INTRALUM DEV, PERC APPROACH (10/28/15) DILATION OF R POPL ART WITH INTRALUM DEV, PERC APPROACH (10/28/15) DILATION OF RIGHT ANTERIOR TIBIAL ARTERY, PERC APPROACH (03/07/16) DILATION OF RIGHT FEMORAL ARTERY, PERCUTANEOUS APPROACH (03/07/16) DILATION OF RIGHT POPLITEAL ARTERY, PERCUTANEOUS APPROACH (12/08/16) EXTIRPATION OF MATTER FROM L EXT ILIAC VEIN, PERC APPROACH (11/04/15) EXTIRPATION OF MATTER FROM L FEM ART, PERC APPROACH (08/23/17) EXTIRPATION OF MATTER FROM L POPL ART, PERC APPROACH (08/23/17) EXTIRPATION OF MATTER FROM LEFT FEMORAL VEIN, PERC APPROACH (11/04/15) EXTIRPATION OF MATTER FROM R FEM ART, PERC APPROACH (10/28/15) INTRODUCE OTH THROMBOLYTIC IN CENTRAL VEIN, PERC (12/08/16) INTRODUCE OTH THROMBOLYTIC IN PERIPH VEIN, PERC (11/04/15) TRANSFUSE NONAUT RED BLOOD CELLS IN PERIPH VEIN, PERC (11/04/15) VACCINATION NEC (03/02/14) Review of Systems - Review of Systems All systems: reviewed and no additional remarkable complaints except - Constitutional Constitutional: As Per HPI - EENT Eyes: absent: As Per HPI, Blind Spots, Blurred Vision, Change in Vision, Decreased Night Vision, Diplopia, Discharge, Dry Eye, Exophthalmos, Floaters, Irritation, Itchy Eyes, Loss of Peripheral Vision, Pain, Photophobia, Requires Corrective Lenses, Sees Flashes, Spots in Vision, Tunnel Vision, Other Visual Disturbances, Loss of Vision, Other Ears: absent: As Per HPI, Decreased Hearing, Ear Discharge, Ear Pain, Tinnitus, Abnormal Hearing, Disequilibrium, Dizziness, Other Nose/Mouth/Throat: absent: As Per HPI, Epistaxis, Nasal Congestion, Nasal Discharge, Nasal Obstruction, Nasal Trauma, Nose Pain, Post Nasal Drip, Sinus Pain, Sinus Pressure, Bleeding Gums, Change in Voice, Dental Pain, Dry Mouth, Dysphagia, Halitosis, Hoarsness, Lip Swelling, Mouth Lesions, Mouth Pain, Odynophagia, Sore Throat, Throat Swelling, Tongue Swelling, Facial Pain, Neck Pain, Neck Mass, Other - Breasts Breasts: absent: As Per HPI, Change in Shape, Mass, Pain, Nipple Discharge, Nipple Inversion, Skin Changes, Swelling, Other - Cardiovascular Cardiovascular: absent: As Per HPI, Acrocyanosis, Chest Pain, Chest Pain at Rest , Chest Pain with Activity, Claudication, Diaphoresis, Dyspnea, Dyspnea on Exertion, Edema, Irregular Heart Rhythm, Pain Radiating to Arm/Neck/Jaw, Leg Edema, Leg Ulcers, Lightheadedness, Orthopnea, Palpitations, Paroxysmal Nocturnal Dyspnea, Pedal Edema, Radiating Pain, Rapid Heart Rate, Slow Heart Rate, Syncope, Other - Respiratory Respiratory: absent: As Per HPI, Cough, Dyspnea, Hemoptysis, Dyspnea on Exertion , Wheezing, Snoring, Stridor, Pain on Inspiration, Chest Congestion, Excessive Mucous Production, Change in Mucous Color, Pain with Coughing, Other - Gastrointestinal Gastrointestinal: absent: As Per HPI, Abdominal Pain, Belching, Bloating, Change in Bowel Habits, Change in Stool Character, Coffee Ground Emesis, Constipation, Cramping, Diarrhea, Dyspepsia, Dysphagia, Early Satiety, Excessive Flatus, Fecal Incontinence, Heartburn, Hematemesis, Hematochezia, Loose Stools, Melena, Nausea, Odynophagia, Temesmus, Vomiting, Other - Genitourinary Genitourinary: absent: As Per HPI, Change in Urinary Stream, Difficulty Urinating, Dysuria, Flank Pain, Hematuria, Pyuria, Nocturia, Urinary Incontinence, Urinary Frequency, Urinary Hesitance, Urinary Urgency, Voiding Freq/Small Amts, Freq UTI, Hx Renal/Bladder Calculi, Hx /Renal Surgery, Bladder Distension, Other - Reproductive: Female Reproductive:Female: absent: As Per HPI, Amenorrhea, Amenorrhea/ Control, Currently Menstual, Cycle <21 Days, Cycle >35 Days, Cycle Variable, Menses 1-7 Days, Menses >/= 8 Days, Menses Variable, Cycle > 4 Weeks Between, No Menses for 6 Months, Heavy Menses, Light Menses, Normal Menses, Spotting Between Cycles , S/P Hysterectomy, Menopausal, Post Menopausal, Premenarche, Abnormal Vaginal Bleeding, Dysmenorrhea, Dyspareunia, Genital Lesions, Genital Pruritis, Pelvic Pain, Prolapse Symptoms, Sexual Dysfunction, Vaginal Discharge, Vaginal Dryness , Vaginal Odor, Vaginal Pruritis, Other - Menstruation Menstruation: absent: As Per HPI, Amenorrhea, Amenorrhea/ Control, Currently Menstual, Cycle <21 Days, Cycle >35 Days, Cycle Variable, Menses 1-7 Days, Menses >/= 8 Days, Menses Variable, Cycle > 4 Weeks Between, No Menses for 6 Months, Heavy Menses, Light Menses, Normal Menses, Spotting Between Cycles , S/P Hysterectomy, Menopausal, Post Menopausal, Premenarche, Abnormal Vaginal Bleeding, Dysmenorrhea, Other - Musculoskeletal Musculoskeletal: As Per HPI - Integumentary Integumentary: As Per HPI - Neurological Neurological: absent: As Per HPI, Abnormal Gait, Abnormal Hearing, Abnormal Movements, Abnormal Speech, Behavioral Changes, Burning Sensations, Confusion, Convulsions, Disequilibrium, Dizziness, Numbness, Focal Weakness, Frequent Falls , Headaches, Lack of Coordination, Loss of Vision, Memory Loss, Paresthesias, Radicular Pain, Restless Legs, Sensory Deficit, Syncope, Tingling, Tremor, Vertigo, Weakness, Other Visual Disturbances, Other - Psychiatric Psychiatric: absent: As Per HPI, Abnormal Sleep Pattern, Anhedonia, Anxiety, Auditory Hallucinations, Behavioral Changes, Change in Appetite, Change in Libido, Confusion, Depression, Difficulty Concentrating, Hallucinations, Homicidal Ideation, Hopelessness, Irritability, Memory Loss, Mood Swings, Panic Attacks, Paranoia, Suicidal Ideation, Visual Hallucinations, Tactile Hallucinations, Other - Endocrine Endocrine: absent: As Per HPI, Change in Body Appearance, Change in Libido, Cold Intolorance, Deepening of Voice, Excessive Sweating, Fatigue, Flushing, Heat Intolorance, Increase in Ring/Shoe/Hat Size, Palpitations, Polydipsia, Polyphagia, Polyuria, Other - Hematologic/Lymphatic Hematologic: absent: As Per HPI, Easy Bleeding, Easy Bruising, Lymphadenopathy, Other Past Patient History - Infectious Disease Hx of Infectious Diseases: None - Past Medical History & Family History Past Medical History?: Yes - Past Social History Smoking Status: Former Smoker - CARDIAC Hx Cardiac Disorders: Yes Hx Hypercholesterolemia: Yes Hx Hypertension: Yes - PULMONARY Hx Respiratory Disorders: No - HEENT Hx HEENT Problems: Yes Hx Cataracts: Yes (BILAT. ) - RENAL Hx Chronic Kidney Disease: No - ENDOCRINE/METABOLIC Hx Endocrine Disorders: Yes Hx Diabetes Mellitus Type 2: Yes - HEMATOLOGICAL/ONCOLOGICAL Hx Blood Disorders: Yes Hx Anemia: Yes - INTEGUMENTARY Hx Dermatological Problems: No - MUSCULOSKELETAL/RHEUMATOLOGICAL Hx Musculoskeletal Disorders: Yes Hx Arthritis: Yes - GASTROINTESTINAL Hx Gastrointestinal Disorders: No - GENITOURINARY/GYNECOLOGICAL Hx Genitourinary Disorders: No - PSYCHIATRIC Hx Substance Use: No - SURGICAL HISTORY Hx Surgeries: Yes Hx Amputation: Yes (Right toes) Hx Coronary Stent: Yes (X1) Hx Tonsillectomy: Yes - ANESTHESIA Hx Anesthesia: Yes Hx Anesthesia Reactions: No Hx Malignant Hyperthermia: No Meds Allergies/Adverse Reactions: Allergies Allergy/AdvReac Type Severity Reaction Status Date / Time No Known Allergies Allergy Verified 08/23/17 17:06 - Medications Medications: Current Medications Apixaban (Eliquis) 2.5 mg PO BID [facility] Aspirin (Aspirin Chewable) 81 mg PO DAILY [facility] Gabapentin (Neurontin) 600 mg PO TID [facility] Home Med ([place]-3 Fatty Acids [Fish Oil]) 1,000 mg PO DAILY [facility] Insulin Human Regular (Novolin R) 0 unit SC ACHS [facility] PRN Reason: Protocol Losartan Potassium (Cozaar) 25 mg PO DAILY [facility] Metoprolol Tartrate (Lopressor) 25 mg PO DAILY [facility] Physical Exam - Constitutional Appears: Non-toxic, Chronically Ill - Head Exam Head Exam: NORMOCEPHALIC - Eye Exam Eye Exam: PERRL - ENT Exam ENT Exam: Mucous Membranes Dry - Neck Exam Neck exam: Negative for: Lymphadenopathy - Respiratory Exam Respiratory Exam: Decreased Breath Sounds - Cardiovascular Exam Cardiovascular Exam: REGULAR RHYTHM, +S1, +S2 - GI/Abdominal Exam GI & Abdominal Exam: Diminished Bowel Sounds, Soft. absent: Tenderness - Rectal Exam Rectal Exam: Deferred - Exam Exam: NORMAL INSPECTION - Extremities Exam Extremities exam: Negative for: calf tenderness, normal inspection, pedal edema , tenderness, pedal pulses present Additional comments: amp site right foot 1st and 2nd toes not healing - Back Exam Back exam: absent: CVA tenderness (L), CVA tenderness (R) - Neurological Exam Neurological exam: Alert, CN II-XII Intact, Oriented x3, Reflexes Normal - Psychiatric Exam Psychiatric exam: Normal Mood - Skin Skin Exam: Dry Results - Vital Signs Recent Vital Signs: Last Vital Signs Temp 98.2 F 01/11/18 11:45 Pulse 60 01/11/18 12:50 Resp 20 01/11/18 12:50 BP 148/69 01/11/18 12:50 Pulse Ox 99 01/11/18 12:50 - Labs Result Diagrams: 01/11/18 10:14 01/11/18 10:14 Labs: Laboratory Results - last 24 hr 01/11/18 01/11/18 01/11/18 10:14 10:14 10:14 WBC 4.3 L RBC 3.80 Hgb 10.5 L Hct 31.4 L MCV 82.6 D MCH 27.6 MCHC 33.4 RDW 14.4 Plt Count 147 MPV 9.0 Neut % (Auto) 64.0 Lymph % (Auto) 25.0 [place] % (Auto) 7.8 Eos % (Auto) 2.3 Baso % (Auto) 0.9 Neut # (Auto) 2.8 Lymph # (Auto) 1.1 [place] # (Auto) 0.3 Eos # (Auto) 0.1 Baso # (Auto) 0.0 PT 10.3 INR 0.9 APTT 33 Sodium 146 Potassium 5.4 H Chloride 109 H Carbon Dioxide 25 Anion Gap 17 BUN 25 H Creatinine 1.0 Est GFR ( Amer) > 60 Est GFR (Non-Af Amer) 55 POC Glucose (mg/dL) Random Glucose 86 Calcium 9.7 Total Bilirubin 0.7 AST 21 ALT 24 Alkaline Phosphatase 74 Total Protein 7.0 Albumin 4.1 Globulin 2.9 Albumin/Globulin Ratio 1.4 Blood Type Antibody Screen 01/11/18 01/11/18 01/11/18 10:14 12:37 12:58 WBC RBC Hgb Hct MCV MCH MCHC RDW Plt Count MPV Neut % (Auto) Lymph % (Auto) [place] % (Auto) Eos % (Auto) Baso % (Auto) Neut # (Auto) Lymph # (Auto) [place] # (Auto) Eos # (Auto) Baso # (Auto) PT INR APTT Sodium Potassium Chloride Carbon Dioxide Anion Gap BUN Creatinine Est GFR ( Amer) Est GFR (Non-Af Amer) POC Glucose (mg/dL) 59 L 69 Random Glucose Calcium Total Bilirubin AST ALT Alkaline Phosphatase Total Protein Albumin Globulin Albumin/Globulin Ratio Blood Type B POSITIVE Antibody Screen Negative 01/11/18 13:16 WBC RBC Hgb Hct MCV MCH MCHC RDW Plt Count MPV Neut % (Auto) Lymph % (Auto) [place] % (Auto) Eos % (Auto) Baso % (Auto) Neut # (Auto) Lymph # (Auto) [place] # (Auto) Eos # (Auto) Baso # (Auto) PT INR APTT Sodium Potassium Chloride Carbon Dioxide Anion Gap BUN Creatinine Est GFR ( Amer) Est GFR (Non-Af Amer) POC Glucose (mg/dL) 113 H Random Glucose Calcium Total Bilirubin AST ALT Alkaline Phosphatase Total Protein Albumin Globulin Albumin/Globulin Ratio Blood Type Antibody Screen Assessment & Plan (1) Diabetic foot infection Status: Acute (2) Diabetic foot ulcer Status: Acute - Assessment and Plan (Free Text) Assessment: vascular eval, imaging cultures iv antibiotics
[2018-01-11] MEDS: Sodium Chloride 0.45% 1,000 ML IV SCH (16:15)
[2018-01-11] MEDS: Cefepime IV 1 gm in Dextrose 1 GM/50 ML BAG IVPB SCH (16:30)
[2018-01-11] MEDS: (Novolin R) Insulin Human Regular 100 units/ml vial SC SCH ×2 (17:15→21:28)
--- NOTE | 2018-01-11 17:38 | CP.PCM.CON ---
History of Present Illness - History of Present Illness History of Present Illness: Vascular Surgery Consult Note for Dr. Nur 68F with a PMH of CAD, diabetes, HTN, hypercholesterolemia, and anemia is s/p amputation of the right foot 1st and 2nd digits 2 months ago. Patient says she came into the hospital after seeing Dr. Rocha, tuesday (01/10/18) for f/u of the toe amputation. Patient was asked to come to the hospital for poor wound healing of part of the amputation site. Patient is not in any distress and does not state any pain at the wound site. Patient states she ambulates well and has been walking around with no problem. Patient denies any weakness, tingling, or sensation loss in the lower extremities. Patient denies fever, chills, dizziness , nausea, chest pain, heart palpitations, SOB, wheezing, or abdominal pain. PMH: anemia, diabetes, CAD, HTN, hypercholesterolemia PSxH: 1st and 2nd toe amputation on the right foot, tonsillectomy, coronary stent x1, cataract surgery Social: Former smoker 1 pack per day, quit 2 months ago. Denies alcohol and drug use. Meds: Metformin, gabapentin, glipizide, lipitor, januvia, eliquis, baby aspirin , losartan, metoprolol Review of Systems - Review of Systems All systems: reviewed and no additional remarkable complaints except Review of Systems: as per hpi - Constitutional Constitutional: absent: Chills, Fever, Headache, Weakness - EENT Eyes: absent: Blurred Vision - Cardiovascular Cardiovascular: absent: Chest Pain, Chest Pain at Rest, Palpitations - Respiratory Respiratory: absent: Dyspnea, Wheezing - Gastrointestinal Gastrointestinal: absent: Diarrhea, Nausea, Vomiting - Musculoskeletal Musculoskeletal: absent: Muscle Weakness, Numbness, Tingling - Integumentary Integumentary: Wounds Additional comments: Right toe amputation site has small wound with evidence of fibrous tissue, without any bleeding, erythema, or redness. - Neurological Neurological: absent: Abnormal Hearing, Abnormal Speech, Confusion, Dizziness, Numbness, Headaches, Tingling, Weakness - Endocrine Endocrine: absent: Palpitations Past Patient History - Infectious Disease Hx of Infectious Diseases: None - Past Medical History & Family History Past Medical History?: Yes - Past Social History Smoking Status: Former Smoker - CARDIAC Hx Cardiac Disorders: Yes Hx Hypercholesterolemia: Yes Hx Hypertension: Yes - PULMONARY Hx Respiratory Disorders: No - HEENT Hx HEENT Problems: Yes Hx Cataracts: Yes (BILAT. ) - RENAL Hx Chronic Kidney Disease: No - ENDOCRINE/METABOLIC Hx Endocrine Disorders: Yes Hx Diabetes Mellitus Type 2: Yes - HEMATOLOGICAL/ONCOLOGICAL Hx Blood Disorders: Yes Hx Anemia: Yes - INTEGUMENTARY Hx Dermatological Problems: No - MUSCULOSKELETAL/RHEUMATOLOGICAL Hx Musculoskeletal Disorders: Yes Hx Arthritis: Yes - GASTROINTESTINAL Hx Gastrointestinal Disorders: No - GENITOURINARY/GYNECOLOGICAL Hx Genitourinary Disorders: No - PSYCHIATRIC Hx Substance Use: No - SURGICAL HISTORY Hx Surgeries: Yes Hx Amputation: Yes (Right toes) Hx Coronary Stent: Yes (X1) Hx Tonsillectomy: Yes - ANESTHESIA Hx Anesthesia: Yes Hx Anesthesia Reactions: No Hx Malignant Hyperthermia: No Meds Allergies/Adverse Reactions: Allergies Allergy/AdvReac Type Severity Reaction Status Date / Time No Known Allergies Allergy Verified 08/23/17 17:06 - Medications Medications: Current Medications Apixaban (Eliquis) 2.5 mg PO BID [facility] Aspirin (Aspirin Chewable) 81 mg PO DAILY [facility] Gabapentin (Neurontin) 600 mg PO TID [facility] Cefepime HCl (Maxipime Iv 1 Gm Premix) 1 gm in 50 mls @ 100 mls/hr IVPB Q8H [facility] PRN Reason: Protocol Sodium Chloride (Sodium Chloride 0.45%) 1,000 mls @ 50 mls/hr IV .Q20H [facility] Insulin Human Regular (Novolin R) 0 unit SC ACHS [facility] PRN Reason: Protocol Last Admin: 01/11/18 17:15 Dose: Not Given Losartan Potassium (Cozaar) 25 mg PO DAILY [facility] Metoprolol Tartrate (Lopressor) 25 mg PO DAILY [facility] Gfike-2-Bpdq Ethyl Esters (Lovaza) 1 gm PO DAILY [facility] Physical Exam - Constitutional Appears: Well, Non-toxic, No Acute Distress - Head Exam Head Exam: ATRAUMATIC, NORMOCEPHALIC - Eye Exam Eye Exam: EOMI, Normal appearance - ENT Exam ENT Exam: Mucous Membranes Moist - Respiratory Exam Respiratory Exam: NORMAL BREATHING PATTERN - Cardiovascular Exam Cardiovascular Exam: +S1, +S2 - GI/Abdominal Exam GI & Abdominal Exam: Soft. absent: Distended, Guarding, Rigid, Tenderness - Extremities Exam Extremities exam: Positive for: full ROM, normal capillary refill, pedal pulses present. Negative for: calf tenderness, joint swelling, tenderness Additional comments: no signs of skin mottling, cyanosis or vascular insufficiency, feet warm bilaterally, see skin section for wound exam, DP and PT pulses palpable bilaterally - Neurological Exam Neurological exam: Alert, Oriented x3 - Psychiatric Exam Psychiatric exam: Normal Affect, Normal Mood - Skin Skin Exam: Warm Additional comments: Small 2 cm long by 0.5 cm wide wound at the lateral edge of the incision site closest to the remaining toes with good granulation tissue in non healing area without erythema, induration, purulence or cyanosis. no foul odor from the wound. all other areas of the incision are healing well Results - Vital Signs Recent Vital Signs: Last Vital Signs Temp 98.4 F 01/11/18 16:18 Pulse 61 01/11/18 16:44 Resp 20 01/11/18 16:18 BP 148/72 01/11/18 16:44 Pulse Ox 97 01/11/18 16:18 - Labs Result Diagrams: 01/11/18 10:14 01/11/18 10:14 Labs: Laboratory Results - last 24 hr 01/11/18 01/11/18 01/11/18 10:14 10:14 10:14 WBC 4.3 L RBC 3.80 Hgb 10.5 L Hct 31.4 L MCV 82.6 D MCH 27.6 MCHC 33.4 RDW 14.4 Plt Count 147 MPV 9.0 Neut % (Auto) 64.0 Lymph % (Auto) 25.0 [place] % (Auto) 7.8 Eos % (Auto) 2.3 Baso % (Auto) 0.9 Neut # (Auto) 2.8 Lymph # (Auto) 1.1 [place] # (Auto) 0.3 Eos # (Auto) 0.1 Baso # (Auto) 0.0 PT 10.3 INR 0.9 APTT 33 Sodium 146 Potassium 5.4 H Chloride 109 H Carbon Dioxide 25 Anion Gap 17 BUN 25 H Creatinine 1.0 Est GFR ( Amer) > 60 Est GFR (Non-Af Amer) 55 POC Glucose (mg/dL) Random Glucose 86 Calcium 9.7 Total Bilirubin 0.7 AST 21 ALT 24 Alkaline Phosphatase 74 Total Protein 7.0 Albumin 4.1 Globulin 2.9 Albumin/Globulin Ratio 1.4 Blood Type Antibody Screen 08/08/18 08/08/18 08/08/18 10:14 12:37 12:58 WBC RBC Hgb Hct MCV MCH MCHC RDW Plt Count MPV Neut % (Auto) Lymph % (Auto) [place] % (Auto) Eos % (Auto) Baso % (Auto) Neut # (Auto) Lymph # (Auto) [place] # (Auto) Eos # (Auto) Baso # (Auto) PT INR APTT Sodium Potassium Chloride Carbon Dioxide Anion Gap BUN Creatinine Est GFR ( Amer) Est GFR (Non-Af Amer) POC Glucose (mg/dL) 59 L 69 Random Glucose Calcium Total Bilirubin AST ALT Alkaline Phosphatase Total Protein Albumin Globulin Albumin/Globulin Ratio Blood Type B POSITIVE Antibody Screen Negative 01/11/18 13:16 WBC RBC Hgb Hct MCV MCH MCHC RDW Plt Count MPV Neut % (Auto) Lymph % (Auto) [place] % (Auto) Eos % (Auto) Baso % (Auto) Neut # (Auto) Lymph # (Auto) [place] # (Auto) Eos # (Auto) Baso # (Auto) PT INR APTT Sodium Potassium Chloride Carbon Dioxide Anion Gap BUN Creatinine Est GFR ( Amer) Est GFR (Non-Af Amer) POC Glucose (mg/dL) 113 H Random Glucose Calcium Total Bilirubin AST ALT Alkaline Phosphatase Total Protein Albumin Globulin Albumin/Globulin Ratio Blood Type Antibody Screen Assessment & Plan - Assessment and Plan (Free Text) Assessment: 68F with a PMH of diabetes, CAB, HTN, hypercholesterolemia, 1st and 2nd right toe amputation present with poor wound healing of a small portion of the right toe amputation site. Plan: - difficulty healing likely d/t poor blood sugar control - DP and PT pulses palpable bilaterally - No vascular surgical intervention needed at this time - Discussed plan with Dr. Liudmila Chapman, PGY 1
[2018-01-11 21:09] LABS: ALB/GLOB RATIO 1.3 (1.0-2.1); ALBUMIN 3.9 g/dL (3.5-5.0); ALT/SGPT 25 U/L (9-52); AST/SGOT 15 U/L (14-36); BLOOD UREA NITROGEN 22 mg/dL (7-17); CALCIUM 9.2 mg/dl (8.6-10.4); GFR NON-AFRICAN AMERICAN > 60
[2018-01-12] MEDS ORDERED: Sod Polystyrene Sulf 15 gm/60 ml Susp PO ONE ×3 (00:15→17:02)
[2018-01-12] MEDS: Cefepime IV 1 gm in Dextrose 1 GM/50 ML BAG IVPB SCH ×3 (00:34→16:05)
[2018-01-12] MEDS ORDERED: DUREZOL OS SCH (06:00)
[2018-01-12 08:05] LABS: ALB/GLOB RATIO 1.4 (1.0-2.1); ALBUMIN 3.9 g/dL (3.5-5.0); ALT/SGPT 24 U/L (9-52); AST/SGOT 13 U/L (14-36); BLOOD UREA NITROGEN 21 mg/dL (7-17); GFR NON-AFRICAN AMERICAN > 60
[2018-01-12] MEDS: (Novolin R) Insulin Human Regular 100 units/ml vial SC SCH ×4 (08:23→21:36)
[2018-01-12] MEDS: Omega-3-Acid Ethyl Esters 1 GM Cap PO SCH (10:14)
[2018-01-12] MEDS: Sodium Chloride 0.45% 1,000 ML IV SCH (13:26)
--- NOTE | 2018-01-12 16:20 | CP.PCM.PN ---
Subjective - Date & Time of Evaluation Date of Evaluation: 01/12/18 Time of Evaluation: 16:17 - Subjective Subjective: Podiatry Consult Note - Dr. Rocha 68 y/o female seen at bedside today for evaluation of right foot ulceration with Dr. Rocha. Patient resting comfortably and in no acute distress. Consent was reviewed with patient, signed and witness by nurse. Patient understands that revision of the amputation is needed. She denies any recent changes to her medical history. Denies any pain to the R foot. Denies F/C/N/V/CP/SOB Objective - Vital Signs/Intake and Output Vital Signs (last 24 hours): Temp Pulse Resp BP Pulse Ox 98.1 F 59 L 20 149/79 97 01/12/18 07:03 01/12/18 07:03 01/12/18 07:03 01/12/18 10:15 01/12/18 07:03 Intake and Output: 01/12/18 01/12/18 06:59 18:59 Intake Total 1400 880 Balance 1400 880 - Medications Medications: Current Medications Apixaban (Eliquis) 2.5 mg PO BID [facility] Last Admin: 01/11/18 18:45 Dose: Not Given Aspirin (Aspirin Chewable) 81 mg PO DAILY [facility] Last Admin: 01/12/18 10:14 Dose: 81 mg Gabapentin (Neurontin) 600 mg PO TID [facility] Last Admin: 01/12/18 13:26 Dose: 600 mg Home Med (Durezol) 1 drop OS Q8 [facility] Cefepime HCl (Maxipime Iv 1 Gm Premix) 1 gm in 50 mls @ 100 mls/hr IVPB Q8H [facility] PRN Reason: Protocol Last Admin: 01/12/18 16:05 Dose: 100 mls/hr Sodium Chloride (Sodium Chloride 0.45%) 1,000 mls @ 50 mls/hr IV .Q20H [facility] Last Admin: 01/12/18 13:26 Dose: 50 mls/hr Insulin Human Regular (Novolin R) 0 unit SC ACHS [facility] PRN Reason: Protocol Last Admin: 01/12/18 11:51 Dose: 2 units Losartan Potassium (Cozaar) 25 mg PO DAILY [facility] Last Admin: 01/12/18 10:15 Dose: 25 mg Metoprolol Tartrate (Lopressor) 25 mg PO DAILY [facility] Last Admin: 01/12/18 10:15 Dose: 25 mg Eiiyk-9-Aryo Ethyl Esters (Lovaza) 1 gm PO DAILY [facility] Last Admin: 01/12/18 10:14 Dose: 1 gm - Labs Labs: 01/11/18 10:14 01/12/18 07:28 PT 10.3 SECONDS (9.7-12.2) 01/11/18 10:14 INR 0.9 01/11/18 10:14 APTT 33 SECONDS (21-34) 01/11/18 10:14 - Constitutional Appears: Well, Non-toxic, No Acute Distress - Head Exam Head Exam: ATRAUMATIC, NORMOCEPHALIC - Extremities Exam Additional comments: RLE focused exam: Vasc: DP/PT pulses palpable 1/4. Temperature gradient warm to cool. CFT < 3 sec x 3 digits. No pedal edema Derm: Open linear ulceration noted to 1st and 2nd digit amputation site with serosanguinous drainage noted and 100% fibrotic base. No malodor, no dana wound erythema, no fluctuance, no undermining or tunneling Neuro: Protective sensation grossly intact Ortho: no tenderness to palpation of ulcer site - Neurological Exam Neurological Exam: Alert, Awake, Oriented x3 - Psychiatric Exam Psychiatric exam: Normal Affect, Normal Mood Assessment and Plan - Assessment and Plan (Free Text) Assessment: 68 y/o female with right foot non-healing ulcer s/p amputation of 1st and 2nd digits Plan: Pt seen and evaluated at bedside with Dr. Rocha Vascular Dr. Nur on board, appreciate recommendations preoperatively prior to surgical intervention Continue IV abx Wound cleaned with saline and dressed with xeroform, DSD Pt to go to OR on Tuesday for revisional amputation of R foot 1st and 2nd digit amps Consent signed by patient NPO ordered placed Patient Eliquis and Aspirin on hold Will continue to follow
--- NOTE | 2018-01-12 18:49 | CP.PCM.HP ---
History of Present Illness - History of Present Illness History of Present Illness: Patient is a 67 y/o female with past medical history of diabetes, hypertension, hyperlipidemia, peripheral vascular disease, DVT, and CAD, who presents to the ED with ulcer of her right foot. She also complains of pain in her left foot due to multiple cuts on the sole. Patient denies trauma to the left foot and attributes the cuts to dryness caused by diabetes. The pain does not radiate up her legs and stays localized to her feet. Patient rates the pain on her right toes a 5/10 and left foot, 10/10. Patient states she has no trouble walking and has been using a cane to ambulate. Currently, patient complains of pain in her right 1st and 2nd toes and in the left sole, as well as coldness and occasional numbness and tingling to her feet bilaterally. She denies ISBELL, fever, chills, n/v, chest pain, abdominal pain, and leg swelling/pain. PMD: Dr. Culp Cardio: Dr. Alvarado Podiatry: Dr. Rocha Vascular: Dr. Nur PMHx: DM, HTN, HLD, PVD, DVT, CAD Social Hx: pack daily for +40 years; denies alcohol and illicit drug use Allergies: seasonal Surgery: peripheral lower extremity stents bilaterally, coronary stent (x1), tonsillectomy, FHx: motherDM; sisterdeceased at 27 y/o due to salivary gland CA; brothersdeceased due to lymphoma and [place] Meds: glipizide, metformin, gabapentin, atorvastatin, metoprolol, amlodipine, losartan, eliquis, aspirin, Pepcid, Januvia, tramadol, omega 3 clinically stabke high K noted repeat labs pt with non healing ulcer DM HTN PVD CAD for surgery repeat k level Chief complaint: Preoperative clearance HPI: 67-year-old female with a history of diabetes, hypertension, hyperlipidemia, peripheral vascular disease, DVT, CAD, 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 Patient came to the office for left eye cataract surgery. Currently patient is feeling well. Quit smoking Denies any chest pain or shortness of breath. Past medical history as noted above Surgical history patient was a smoker half pack per day for 40 years, currently quit Denies any alcohol no drugs Allergies none Surgical history includes a coronary stenting, tonsillectomy, , PVD Family history: Mother diabetes sister secondary to salivary gland cancer at the age of 27 Brother had lymphoma and heart disease. Current medications reviewed Review of system: Noted from the chart No chest pain or shortness of breath. Left eye cataract. Denies any GI symptoms On examination: Vital signs stable Chest good air entry Nontender abdomen no pedal edema [employer] alert awake oriented 3 no functional neurological deficit Patient hospital records reviewed Labs noted EKG nonspecific Assessment and recommendation: 67-year-old female with a history of diabetes hypertension hyperlipidemia PVD DVT CAD. Admitted recently with the right leg ulcer. Patient is scheduled to have a left eye cataract. Stable. Medically stable for surgery as well as cleared. Present on Admission - Present on Admission Any Indicators Present on Admission: No History of DVT/PE: No History of Uncontrolled Diabetes: No Urinary Catheter: No Decubitus Ulcer Present: No Past Patient History - Infectious Disease Hx of Infectious Diseases: None - Past Medical History & Family History Past Medical History?: Yes - Past Social History Smoking Status: Former Smoker - CARDIAC Hx Cardiac Disorders: Yes Hx Hypercholesterolemia: Yes Hx Hypertension: Yes - PULMONARY Hx Respiratory Disorders: No - HEENT Hx HEENT Problems: Yes Hx Cataracts: Yes (BILAT. ) - RENAL Hx Chronic Kidney Disease: No - ENDOCRINE/METABOLIC Hx Diabetes Mellitus Type 2: Yes - HEMATOLOGICAL/ONCOLOGICAL Hx Blood Disorders: Yes Hx Anemia: Yes - INTEGUMENTARY Hx Dermatological Problems: No - MUSCULOSKELETAL/RHEUMATOLOGICAL Hx Arthritis: Yes (R ANKLE; KNEE) - GASTROINTESTINAL Hx Gastrointestinal Disorders: No - GENITOURINARY/GYNECOLOGICAL Hx Genitourinary Disorders: No - PSYCHIATRIC Hx Substance Use: No - SURGICAL HISTORY Hx Surgeries: Yes Hx Amputation: Yes (Right toes) Hx Coronary Stent: Yes (X1) Hx Tonsillectomy: Yes - ANESTHESIA Hx Anesthesia: Yes Hx Anesthesia Reactions: No Hx Malignant Hyperthermia: No Meds Allergies/Adverse Reactions: Allergies Allergy/AdvReac Type Severity Reaction Status Date / Time No Known Allergies Allergy Verified 08/23/17 17:06 Results - Vital Signs Recent Vital Signs: Last Vital Signs Temp 98.1 F 01/12/18 17:05 Pulse 60 01/12/18 17:05 Resp 20 01/12/18 17:05 BP 160/66 H 01/12/18 17:05 Pulse Ox 97 01/12/18 17:05 - Labs Result Diagrams: 01/13/18 06:36 01/13/18 06:36 Labs: Laboratory Results - last 24 hr 01/11/18 01/11/18 01/11/18 16:47 20:51 21:19 Sodium 140 Potassium 5.8 H Chloride 106 Carbon Dioxide 26 Anion Gap 14 BUN 22 H Creatinine 0.9 Est GFR ( Amer) > 60 Est GFR (Non-Af Amer) > 60 POC Glucose (mg/dL) 136 H 102 Random Glucose 125 H Calcium 9.2 Total Bilirubin 0.8 AST 15 ALT 25 Alkaline Phosphatase 67 Total Protein 6.8 Albumin 3.9 Globulin 2.9 Albumin/Globulin Ratio 1.3 01/12/18 01/12/18 01/12/18 07:28 08:07 11:05 Sodium 142 Potassium 5.0 Chloride 111 H Carbon Dioxide 21 L Anion Gap 15 BUN 21 H Creatinine 0.8 Est GFR ( Amer) > 60 Est GFR (Non-Af Amer) > 60 POC Glucose (mg/dL) 114 H 213 H Random Glucose 120 H Calcium 9.0 Total Bilirubin 0.9 AST 13 L ALT 24 Alkaline Phosphatase 63 Total Protein 6.7 Albumin 3.9 Globulin 2.8 Albumin/Globulin Ratio 1.4 01/12/18 16:48 Sodium Potassium Chloride Carbon Dioxide Anion Gap BUN Creatinine Est GFR ( Amer) Est GFR (Non-Af Amer) POC Glucose (mg/dL) 150 H Random Glucose Calcium Total Bilirubin AST ALT Alkaline Phosphatase Total Protein Albumin Globulin Albumin/Globulin Ratio
--- NOTE | 2018-01-12 18:50 | CP.PCM.PN ---
Subjective - Date & Time of Evaluation Date of Evaluation: 01/12/18 Time of Evaluation: 18:49 - Subjective Subjective: Patient's potassium level is better today. She is alert and comfortable. Not in any distress. Receiving IV fluids. Clinically stable. Clinical examination unremarkable except right leg nonhealing ulcer. Patient is going to be n.p.o. tonight. We will get 1 more Kayexalate. We will repeat the potassium level in the morning. Patient is medically cleared for the surgical intervention. We will follow the patient Objective - Vital Signs/Intake and Output Vital Signs (last 24 hours): Temp Pulse Resp BP Pulse Ox 98.1 F 60 20 160/66 H 97 01/12/18 17:05 01/12/18 17:05 01/12/18 17:05 01/12/18 17:05 01/12/18 17:05 Intake and Output: 01/12/18 01/12/18 06:59 18:59 Intake Total 1400 880 Balance 1400 880 - Medications Medications: Current Medications Apixaban (Eliquis) 2.5 mg PO BID [facility] [place] Last Admin: 01/11/18 18:45 Dose: Not Given Aspirin (Aspirin Chewable) 81 mg PO DAILY [facility] Last Admin: 01/12/18 10:14 Dose: 81 mg Gabapentin (Neurontin) 600 mg PO TID [facility] [place] Last Admin: 01/12/18 17:30 Dose: 600 mg Home Med (Durezol) 1 drop OS Q8 [facility] Cefepime HCl (Maxipime Iv 1 Gm Premix) 1 gm in 50 mls @ 100 mls/hr IVPB Q8H [facility] PRN Reason: Protocol Last Admin: 01/12/18 16:05 Dose: 100 mls/hr Sodium Chloride (Sodium Chloride 0.45%) 1,000 mls @ 50 mls/hr IV .Q20H [facility] [place] Last Admin: 01/12/18 13:26 Dose: 50 mls/hr Insulin Human Regular (Novolin R) 0 unit SC ACHS [facility] [place] PRN Reason: Protocol Last Admin: 01/12/18 16:56 Dose: Not Given Losartan Potassium (Cozaar) 25 mg PO DAILY [facility] [place] Last Admin: 01/12/18 10:15 Dose: 25 mg Metoprolol Tartrate (Lopressor) 25 mg PO DAILY [facility] Last Admin: 08/09/18 10:15 Dose: 25 mg Hmjvx-5-Bdmm Ethyl Esters (Lovaza) 1 gm PO DAILY [facility] Last Admin: 01/12/18 10:14 Dose: 1 gm - Labs Labs: 01/11/18 10:14 01/12/18 07:28 PT 10.3 SECONDS (9.7-12.2) 01/11/18 10:14 INR 0.9 01/11/18 10:14 APTT 33 SECONDS (21-34) 01/11/18 10:14
--- NOTE | 2018-01-12 20:06 | CP.PCM.PN ---
Subjective - Date & Time of Evaluation Date of Evaluation: 01/12/18 Time of Evaluation: 09:00 - Subjective Subjective: for or debridement Objective - Vital Signs/Intake and Output Vital Signs (last 24 hours): Temp Pulse Resp BP Pulse Ox 98.1 F 60 20 160/66 H 97 01/12/18 17:05 01/12/18 17:05 01/12/18 17:05 01/12/18 17:05 01/12/18 17:05 Intake and Output: 01/12/18 01/13/18 18:59 06:59 Intake Total 880 Balance 880 - Medications Medications: Current Medications Apixaban (Eliquis) 2.5 mg PO BID [facility] Last Admin: 01/11/18 18:45 Dose: Not Given Aspirin (Aspirin Chewable) 81 mg PO DAILY [facility] Last Admin: 01/12/18 10:14 Dose: 81 mg Gabapentin (Neurontin) 600 mg PO TID [facility] Last Admin: 01/12/18 17:30 Dose: 600 mg Home Med (Durezol) 1 drop OS Q8 [facility] Cefepime HCl (Maxipime Iv 1 Gm Premix) 1 gm in 50 mls @ 100 mls/hr IVPB Q8H [facility] PRN Reason: Protocol Last Admin: 01/12/18 16:05 Dose: 100 mls/hr Sodium Chloride (Sodium Chloride 0.45%) 1,000 mls @ 50 mls/hr IV .Q20H [facility] Last Admin: 01/12/18 13:26 Dose: 50 mls/hr Insulin Human Regular (Novolin R) 0 unit SC ACHS [facility] PRN Reason: Protocol Last Admin: 01/12/18 16:56 Dose: Not Given Losartan Potassium (Cozaar) 25 mg PO DAILY [facility] Last Admin: 01/12/18 10:15 Dose: 25 mg Metoprolol Tartrate (Lopressor) 25 mg PO DAILY [facility] Last Admin: 01/12/18 10:15 Dose: 25 mg Kfbeh-7-Ujdo Ethyl Esters (Lovaza) 1 gm PO DAILY [facility] Last Admin: 01/12/18 10:14 Dose: 1 gm - Labs Labs: 01/11/18 10:14 01/12/18 07:28 PT 10.3 SECONDS (9.7-12.2) 01/11/18 10:14 INR 0.9 01/11/18 10:14 APTT 33 SECONDS (21-34) 01/11/18 10:14 - Constitutional Appears: Non-toxic, Chronically Ill - Head Exam Head Exam: NORMOCEPHALIC - Eye Exam Eye Exam: PERRL - ENT Exam ENT Exam: Mucous Membranes Dry - Neck Exam Neck Exam: absent: Lymphadenopathy - Respiratory Exam Respiratory Exam: Decreased Breath Sounds - Cardiovascular Exam Cardiovascular Exam: REGULAR RHYTHM - GI/Abdominal Exam GI & Abdominal Exam: Distended Assessment and Plan (1) Diabetic foot infection Status: Acute (2) Diabetic foot ulcer Status: Acute - Assessment and Plan (Free Text) Assessment: cont iv rx wound care for OR in am
[2018-01-13] MEDS: Cefepime IV 1 gm in Dextrose 1 GM/50 ML BAG IVPB SCH ×3 (00:37→16:11)
[2018-01-13 06:42] LABS: BASO % 0.7 % (0.0-2.0); EOS # 0.1 K/uL (0.0-0.7); EOS % 3.2 % (0.0-4.0); HEMOGLOBIN 10.6 g/dL (11.0-16.0); LYMPH # 1.2 K/uL (1.0-4.3); LYMPH % 27.3 % (20.0-40.0); MEAN CELL VOLUME 81.2 fL (81.0-99.0); MEAN CORPUSCULAR HEMOGLOBIN 27.8 pg (27.0-31.0); MEAN CORPUSCULAR HGB CONC 34.2 g/dL (33.0-37.0); MEAN PLATELET VOLUME 8.5 fL (7.2-11.7); MONO # 0.4 K/uL (0.0-0.8); MONO % 8.9 % (0.0-10.0); NEUT # 2.7 K/uL (1.8-7.0); NEUT % 59.9 % (50.0-75.0); NRBC % 0.1 % (0.0-2.0); RBC 3.81 Mil/uL (3.80-5.20); RED CELL DISTRIBUTION WIDTH 14.5 % (11.5-14.5); WHITE BLOOD COUNT 4.4 K/uL (4.8-10.8)
[2018-01-13 06:57] LABS: BLOOD UREA NITROGEN 18 mg/dL (7-17); GFR NON-AFRICAN AMERICAN > 60
[2018-01-13] MEDS: (Novolin R) Insulin Human Regular 100 units/ml vial SC SCH ×4 (08:30→21:52)
[2018-01-13] MEDS: Sodium Chloride 0.45% 1,000 ML IV SCH (08:32)
[2018-01-13] MEDS: Omega-3-Acid Ethyl Esters 1 GM Cap PO SCH (10:19)
--- NOTE | 2018-01-13 10:42 | CP.PCM.PN ---
Subjective - Date & Time of Evaluation Date of Evaluation: 01/13/18 Time of Evaluation: 10:42 - Subjective Subjective: Patient is scheduled to have the surgery for the right foot. Patient is clinically stable. The potassium serum level is better Clinical examination unremarkable. Vital signs stable. Labs reviewed Assessment and recommendation: 68-year-old female with a history of diabetes hypertension hyperlipidemia PVD DVT CAD. Nonhealing right foot ulcer. Patient is scheduled to have the wound debridement, and secondary closure. Will follow the patient postoperatively. Objective - Vital Signs/Intake and Output Vital Signs (last 24 hours): Temp Pulse Resp BP Pulse Ox 97.7 F 67 20 183/74 H 98 01/13/18 08:00 01/13/18 08:00 01/13/18 08:00 01/13/18 10:34 01/13/18 08:00 Intake and Output: 01/13/18 01/13/18 06:59 18:59 Intake Total 1300 Balance 1300 - Medications Medications: Current Medications Apixaban (Eliquis) 2.5 mg PO BID [facility] Last Admin: 01/11/18 18:45 Dose: Not Given Aspirin (Aspirin Chewable) 81 mg PO DAILY [facility] Last Admin: 01/12/18 10:14 Dose: 81 mg Gabapentin (Neurontin) 600 mg PO TID [facility] Last Admin: 01/13/18 10:19 Dose: Not Given Home Med (Durezol) 1 drop OS Q8 [facility] Cefepime HCl (Maxipime Iv 1 Gm Premix) 1 gm in 50 mls @ 100 mls/hr IVPB Q8H [facility] PRN Reason: Protocol Last Admin: 01/13/18 08:29 Dose: 100 mls/hr Sodium Chloride (Sodium Chloride 0.45%) 1,000 mls @ 50 mls/hr IV .Q20H [facility] Last Admin: 01/13/18 08:32 Dose: Not Given Insulin Human Regular (Novolin R) 0 unit SC ACHS [facility] PRN Reason: Protocol Last Admin: 01/13/18 08:30 Dose: Not Given Losartan Potassium (Cozaar) 25 mg PO DAILY [facility] Last Admin: 01/13/18 10:34 Dose: 25 mg Metoprolol Tartrate (Lopressor) 25 mg PO DAILY [facility] Last Admin: 01/13/18 10:34 Dose: 25 mg Qtvmu-0-Qufw Ethyl Esters (Lovaza) 1 gm PO DAILY [facility] Last Admin: 01/13/18 10:19 Dose: Not Given - Labs Labs: 01/13/18 06:36 01/13/18 06:36 PT 10.3 SECONDS (9.7-12.2) 01/11/18 10:14 INR 0.9 01/11/18 10:14 APTT 33 SECONDS (21-34) 01/11/18 10:14
[2018-01-13] MEDS ORDERED: Lidocaine 2% MPF (5 ml) Inj ONE (12:15)
[2018-01-13] MEDS ORDERED: Bupivacaine 0.25% 20 ML INJ IJ ONE (12:15)
[2018-01-13] MEDS ORDERED: Midazolam 2 MG/2 ML VIAL ONE (12:39)
[2018-01-13] MEDS ORDERED: Propofol 10 mg/ml Inj (20 ML) ONE (12:39)
--- NOTE | 2018-01-13 13:33 | PCM.SURG1 ---
Surgeon's Initial Post Op Note - Surgeon's Notes Surgeon: Dr. Nelson Rocha. DPM Tool Maker: Perfecto Pérez PGY1 Type of Anesthesia: IV Sedation, Local Anesthesia Administered By: Dr. 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 Operative Findings: See Dictation. Materials: 3-0 Prolene, 3-0 Vicryl. Injectables: 9 cc of lidocaine 1% and bupivacaine 0.25%. 1:1 mixture. Post-Operative Diagnosis: Same Operation Performed: Debridement and closure of right foot ulcer. Specimen/Specimens Removed: debrided tissues from ulcer base sent to pathology. Wound culture from the ulcer. Estimated Blood Loss: EBL {In ML}: 3 Blood Products Given: N/A Drains Used: No Drains Post-Op Condition: Good Date of Surgery/Procedure: 01/13/18 Time of Surgery/Procedure: 13:38
[2018-01-13] MEDS: Lactated Ringer's 1,000 ML IV SCH ×2 (13:42→13:47)
[2018-01-13] MEDS ORDERED: Oxycodone/Acetaminophen 5/325 mg Tab PO PRN (13:44)
[2018-01-13 17:12] VITALS: RESP 20
[2018-01-13] MEDS: Oxycodone/Acetaminophen 5/325 mg Tab PO PRN ×2 (17:51→22:23)
--- NOTE | 2018-01-13 18:00 | CP.PCM.PN ---
Subjective - Date & Time of Evaluation Date of Evaluation: 01/13/18 Time of Evaluation: 07:00 - Subjective Subjective: s/p amputation of 1st and 2nd digits. denies fever mild pain nad Objective - Vital Signs/Intake and Output Vital Signs (last 24 hours): Temp Pulse Resp BP Pulse Ox 98.2 F 65 20 128/67 97 01/13/18 17:11 01/13/18 17:11 01/13/18 17:11 01/13/18 17:11 01/13/18 17:11 Intake and Output: 01/13/18 01/13/18 06:59 18:59 Intake Total 1300 800 Balance 1300 800 - Medications Medications: Current Medications Acetaminophen (Tylenol 325mg Tab) 650 mg PO Q6 PRN PRN Reason: Pain, Mild (1-3) Apixaban (Eliquis) 2.5 mg PO BID [facility] Last Admin: 01/11/18 18:45 Dose: Not Given Aspirin (Aspirin Chewable) 81 mg PO DAILY [facility] Last Admin: 01/12/18 10:14 Dose: 81 mg Gabapentin (Neurontin) 600 mg PO TID [facility] Last Admin: 01/13/18 17:55 Dose: 600 mg Home Med (Durezol) 1 drop OS Q8 [facility] Cefepime HCl (Maxipime Iv 1 Gm Premix) 1 gm in 50 mls @ 100 mls/hr IVPB Q8H [facility] PRN Reason: Protocol Last Admin: 01/13/18 16:11 Dose: 100 mls/hr Sodium Chloride (Sodium Chloride 0.45%) 1,000 mls @ 50 mls/hr IV .Q20H [facility] Last Admin: 01/13/18 08:32 Dose: Not Given Lactated Ringer's (Lactated Ringer's) 1,000 mls @ 80 mls/hr IV .[id number] [facility] Last Admin: 01/13/18 13:47 Dose: 80 mls/hr Insulin Human Regular (Novolin R) 0 unit SC ACHS [facility] PRN Reason: Protocol Last Admin: 01/13/18 11:40 Dose: Not Given Losartan Potassium (Cozaar) 25 mg PO DAILY [facility] Last Admin: 01/13/18 10:34 Dose: 25 mg Metoprolol Tartrate (Lopressor) 25 mg PO DAILY [facility] Last Admin: 01/13/18 10:34 Dose: 25 mg Dxiyr-4-Urzd Ethyl Esters (Lovaza) 1 gm PO DAILY [facility] Last Admin: 01/13/18 10:19 Dose: Not Given Oxycodone/Acetaminophen (Percocet 5/325 Mg Tab) 1 tab PO Q4H PRN PRN Reason: Pain, moderate (4-7) Stop: 01/16/18 13:45 Oxycodone/Acetaminophen (Percocet 5/325 Mg Tab) 2 tab PO Q4H PRN PRN Reason: Pain, severe (8-10) Stop: 01/16/18 13:45 Last Admin: 01/13/18 17:51 Dose: 2 tab - Labs Labs: 01/13/18 06:36 01/13/18 06:36 PT 10.3 SECONDS (9.7-12.2) 01/11/18 10:14 INR 0.9 01/11/18 10:14 APTT 33 SECONDS (21-34) 01/11/18 10:14 - Constitutional Appears: Non-toxic, Chronically Ill - Head Exam Head Exam: NORMOCEPHALIC - Eye Exam Eye Exam: PERRL - ENT Exam ENT Exam: Mucous Membranes Dry - Neck Exam Neck Exam: absent: Lymphadenopathy - Respiratory Exam Respiratory Exam: Decreased Breath Sounds - Cardiovascular Exam Cardiovascular Exam: REGULAR RHYTHM - GI/Abdominal Exam GI & Abdominal Exam: Distended - Rectal Exam Rectal Exam: Deferred - Exam Exam: NORMAL INSPECTION - Extremities Exam Extremities Exam: Pedal Edema - Back Exam Back Exam: absent: CVA tenderness (L), CVA tenderness (R) Assessment and Plan (1) Diabetic foot infection Status: Acute (2) Diabetic foot ulcer Status: Acute - Assessment and Plan (Free Text) Assessment: cont iv rx await or cultiures cont iv antibiotics
[2018-01-14] MEDS: Cefepime IV 1 gm in Dextrose 1 GM/50 ML BAG IVPB SCH ×3 (01:20→17:27)
[2018-01-14] MEDS: (Novolin R) Insulin Human Regular 100 units/ml vial SC SCH ×4 (07:30→21:55)
[2018-01-14 07:41] LABS: BASO % 0.9 % (0.0-2.0); EOS # 0.1 K/uL (0.0-0.7); HEMOGLOBIN 10.3 g/dL (11.0-16.0); LYMPH # 1.2 K/uL (1.0-4.3); LYMPH % 27.9 % (20.0-40.0); MEAN CELL VOLUME 81.7 fL (81.0-99.0); MEAN CORPUSCULAR HEMOGLOBIN 27.8 pg (27.0-31.0); MONO # 0.4 K/uL (0.0-0.8); MONO % 9.2 % (0.0-10.0); NEUT # 2.6 K/uL (1.8-7.0); NRBC % 0.2 % (0.0-2.0); RBC 3.72 Mil/uL (3.80-5.20); RED CELL DISTRIBUTION WIDTH 14.4 % (11.5-14.5); WHITE BLOOD COUNT 4.4 K/uL (4.8-10.8)
[2018-01-14 07:59] LABS: BLOOD UREA NITROGEN 17 mg/dL (7-17); CALCIUM 9.2 mg/dl (8.6-10.4); GFR NON-AFRICAN AMERICAN > 60
[2018-01-14] MEDS: Omega-3-Acid Ethyl Esters 1 GM Cap PO SCH (09:00)
[2018-01-14] MEDS: Lactated Ringer's 1,000 ML IV SCH (14:20)
--- NOTE | 2018-01-14 18:19 | CP.PCM.PN ---
Subjective - Date & Time of Evaluation Date of Evaluation: 01/14/18 Time of Evaluation: 18:13 - Subjective Subjective: Podiatry progress note for Dr. Rocha 68 yo female seen at bedside this morning with attending, Dr. Rocha 1 day s/p right foot primary closure of wound. Pt denies pain to the lower extremity. Patient denies ambulating. Denies numbness, tingling, or burning. States dressing has remained intact since surgery. Denies F/C/N/V/CP/SOB. Objective - Vital Signs/Intake and Output Vital Signs (last 24 hours): Temp Pulse Resp BP Pulse Ox 98.3 F 64 20 107/73 96 01/14/18 16:36 01/14/18 16:36 01/14/18 16:36 01/14/18 16:36 01/14/18 16:36 Intake and Output: 01/14/18 01/14/18 06:59 18:59 Intake Total 1920 Balance 1920 - Medications Medications: Current Medications Acetaminophen (Tylenol 325mg Tab) 650 mg PO Q6 PRN PRN Reason: Pain, Mild (1-3) Apixaban (Eliquis) 2.5 mg PO BID [facility] Last Admin: 01/11/18 18:45 Dose: Not Given Aspirin (Aspirin Chewable) 81 mg PO DAILY [facility] Last Admin: 01/12/18 10:14 Dose: 81 mg Gabapentin (Neurontin) 600 mg PO TID [facility] Last Admin: 01/14/18 17:27 Dose: 600 mg Home Med (Durezol) 1 drop OS Q8 [facility] Cefepime HCl (Maxipime Iv 1 Gm Premix) 1 gm in 50 mls @ 100 mls/hr IVPB Q8H [facility] PRN Reason: Protocol Last Admin: 01/14/18 17:27 Dose: 100 mls/hr Lactated Ringer's (Lactated Ringer's) 1,000 mls @ 80 mls/hr IV .[id number] [facility] Last Admin: 01/14/18 14:20 Dose: 80 mls/hr Insulin Human Regular (Novolin R) 0 unit SC ACHS [facility] PRN Reason: Protocol Last Admin: 01/14/18 17:28 Dose: 3 units Losartan Potassium (Cozaar) 25 mg PO DAILY [facility] Last Admin: 01/14/18 09:00 Dose: 25 mg Metoprolol Tartrate (Lopressor) 25 mg PO DAILY [facility] Last Admin: 01/14/18 09:01 Dose: 25 mg Exwkh-1-Fytx Ethyl Esters (Lovaza) 1 gm PO DAILY [facility] Last Admin: 01/14/18 09:00 Dose: 1 gm Oxycodone/Acetaminophen (Percocet 5/325 Mg Tab) 1 tab PO Q4H PRN PRN Reason: Pain, moderate (4-7) Stop: 01/16/18 13:45 Oxycodone/Acetaminophen (Percocet 5/325 Mg Tab) 2 tab PO Q4H PRN PRN Reason: Pain, severe (8-10) Stop: 01/16/18 13:45 Last Admin: 01/13/18 22:23 Dose: 2 tab - Labs Labs: 01/14/18 07:24 01/14/18 07:24 PT 10.3 SECONDS (9.7-12.2) 01/11/18 10:14 INR 0.9 01/11/18 10:14 APTT 33 SECONDS (21-34) 01/11/18 10:14 - Constitutional Appears: Well, Non-toxic, No Acute Distress - Head Exam Head Exam: ATRAUMATIC, NORMOCEPHALIC - Extremities Exam Additional comments: RLE focused exam: Vasc: DP/PT pulses palpable 1/4. Temperature gradient warm to cool. CFT < 3 sec x 3 digits. No pedal edema Derm: Surgical site noted to the right dorssomedial forefoot; no purulence or serosanguinous drainage noted, suture intact with skin edges well coapted. Neuro: Protective sensation grossly intact Ortho: no tenderness to palpation of surgical site. - Neurological Exam Neurological Exam: Alert, Awake, Oriented x3 - Psychiatric Exam Psychiatric exam: Normal Affect, Normal Mood Assessment and Plan - Assessment and Plan (Free Text) Assessment: 68 y/o female 1 day s/p right foot primary closure of wound Plan: Pt seen and evaluated at bedside with Dr. Rocha Chart, labs and vitals reviewed; afebrile, absent leukocytosis Continue IV abx Wound cleaned with saline and dressed with xeroform, DSD New surgical shoe ordered Podiatry plan: Patient stable for discharge from podiatry point of view. Will continue to follow
[2018-01-14] MEDS: Oxycodone/Acetaminophen 5/325 mg Tab PO PRN (19:25)
[2018-01-15] MEDS: Cefepime IV 1 gm in Dextrose 1 GM/50 ML BAG IVPB SCH ×3 (00:33→16:16)
[2018-01-15] MEDS: Lactated Ringer's 1,000 ML IV SCH ×3 (03:48→16:20)
[2018-01-15] MEDS: (Novolin R) Insulin Human Regular 100 units/ml vial SC SCH ×4 (07:30→21:21)
[2018-01-15] MEDS: Omega-3-Acid Ethyl Esters 1 GM Cap PO SCH (09:01)
--- NOTE | 2018-01-15 14:51 | CP.PCM.PN ---
Subjective - Date & Time of Evaluation Date of Evaluation: 01/15/18 Time of Evaluation: 09:00 - Subjective Subjective: growing Pseudomonas again from foot IV rx in progress failed out pt rx with orals ?? will discuss PO CIpro as an option- cont rx for 6 weeks Objective - Vital Signs/Intake and Output Vital Signs (last 24 hours): Temp Pulse Resp BP Pulse Ox 98.5 F 70 20 153/67 H 97 01/15/18 08:00 01/15/18 08:00 01/15/18 08:00 01/15/18 09:02 01/15/18 08:00 Intake and Output: 01/15/18 01/15/18 06:59 18:59 Intake Total 1050 910 Balance 1050 910 - Medications Medications: Current Medications Acetaminophen (Tylenol 325mg Tab) 650 mg PO Q6 PRN PRN Reason: Pain, Mild (1-3) Apixaban (Eliquis) 2.5 mg PO BID [facility] Aspirin (Aspirin Chewable) 81 mg PO DAILY [facility] Last Admin: 01/15/18 13:56 Dose: 81 mg Gabapentin (Neurontin) 600 mg PO TID [facility] Last Admin: 01/15/18 13:56 Dose: 600 mg Home Med (Durezol) 1 drop OS Q8 [facility] Cefepime HCl (Maxipime Iv 1 Gm Premix) 1 gm in 50 mls @ 100 mls/hr IVPB Q8H [facility] PRN Reason: Protocol Last Admin: 01/15/18 08:40 Dose: 100 mls/hr Lactated Ringer's (Lactated Ringer's) 1,000 mls @ 80 mls/hr IV .[id number] [facility] Last Admin: 01/15/18 03:50 Dose: 80 mls/hr Insulin Human Regular (Novolin R) 0 unit SC ACHS [facility] PRN Reason: Protocol Last Admin: 01/15/18 11:47 Dose: 2 units Losartan Potassium (Cozaar) 25 mg PO DAILY [facility] Last Admin: 01/15/18 09:01 Dose: 25 mg Metoprolol Tartrate (Lopressor) 25 mg PO DAILY [facility] Last Admin: 01/15/18 09:02 Dose: 25 mg Pgcrg-4-Uupl Ethyl Esters (Lovaza) 1 gm PO DAILY [facility] Last Admin: 01/15/18 09:01 Dose: 1 gm Oxycodone/Acetaminophen (Percocet 5/325 Mg Tab) 1 tab PO Q4H PRN PRN Reason: Pain, moderate (4-7) Stop: 01/16/18 13:45 Oxycodone/Acetaminophen (Percocet 5/325 Mg Tab) 2 tab PO Q4H PRN PRN Reason: Pain, severe (8-10) Stop: 01/16/18 13:45 Last Admin: 01/14/18 19:25 Dose: 2 tab - Labs Labs: 01/14/18 07:24 01/14/18 07:24 PT 10.3 SECONDS (9.7-12.2) 01/11/18 10:14 INR 0.9 01/11/18 10:14 APTT 33 SECONDS (21-34) 01/11/18 10:14 - Constitutional Appears: Non-toxic, Chronically Ill - Head Exam Head Exam: NORMOCEPHALIC - Eye Exam Eye Exam: PERRL - ENT Exam ENT Exam: Mucous Membranes Dry - Neck Exam Neck Exam: absent: Lymphadenopathy - Respiratory Exam Respiratory Exam: Decreased Breath Sounds - Cardiovascular Exam Cardiovascular Exam: REGULAR RHYTHM - GI/Abdominal Exam GI & Abdominal Exam: Distended, Soft - Rectal Exam Rectal Exam: Deferred - Exam Exam: NORMAL INSPECTION - Extremities Exam Extremities Exam: absent: Pedal Edema - Back Exam Back Exam: absent: CVA tenderness (L), CVA tenderness (R) - Neurological Exam Neurological Exam: Alert, Awake, Oriented x3 Assessment and Plan (1) Diabetic foot infection Status: Acute (2) Diabetic foot ulcer Status: Acute - Assessment and Plan (Free Text) Assessment: growing Pseudomonas again from foot IV rx in progress failed out pt rx with orals ?? will discuss PO CIpro as an option- cont rx for 6 weeks
--- NOTE | 2018-01-15 15:14 | CP.PCM.PN ---
Subjective - Date & Time of Evaluation Date of Evaluation: 01/15/18 Time of Evaluation: 15:12 - Subjective Subjective: Podiatry progress note for Dr. Rocha 68 yo female seen at bedside this morning with attending, Dr. Rocha 2 day s/p right foot primary closure of wound. Pt denies pain to the lower extremity. Patient admits to ambulating to and from the bathroom. Denies numbness, tingling , or burning. serosanguinous drainage noted on dress, otherwise clean and intact. Denies F/C/N/V/CP/SOB. Objective - Vital Signs/Intake and Output Vital Signs (last 24 hours): Temp Pulse Resp BP Pulse Ox 98.5 F 70 20 153/67 H 97 01/15/18 08:00 01/15/18 08:00 01/15/18 08:00 01/15/18 09:02 01/15/18 08:00 Intake and Output: 01/15/18 01/15/18 06:59 18:59 Intake Total 1050 910 Balance 1050 910 - Medications Medications: Current Medications Acetaminophen (Tylenol 325mg Tab) 650 mg PO Q6 PRN PRN Reason: Pain, Mild (1-3) Apixaban (Eliquis) 2.5 mg PO BID [facility] Aspirin (Aspirin Chewable) 81 mg PO DAILY [facility] Last Admin: 01/15/18 13:56 Dose: 81 mg Gabapentin (Neurontin) 600 mg PO TID [facility] Last Admin: 01/15/18 13:56 Dose: 600 mg Home Med (Durezol) 1 drop OS Q8 [facility] Cefepime HCl (Maxipime Iv 1 Gm Premix) 1 gm in 50 mls @ 100 mls/hr IVPB Q8H [facility] PRN Reason: Protocol Last Admin: 01/15/18 08:40 Dose: 100 mls/hr Lactated Ringer's (Lactated Ringer's) 1,000 mls @ 80 mls/hr IV .[id number] [facility] Last Admin: 01/15/18 03:50 Dose: 80 mls/hr Insulin Human Regular (Novolin R) 0 unit SC ACHS [facility] PRN Reason: Protocol Last Admin: 01/15/18 11:47 Dose: 2 units Losartan Potassium (Cozaar) 25 mg PO DAILY [facility] Last Admin: 01/15/18 09:01 Dose: 25 mg Metoprolol Tartrate (Lopressor) 25 mg PO DAILY [facility] Last Admin: 01/15/18 09:02 Dose: 25 mg Ejryl-4-Rcfo Ethyl Esters (Lovaza) 1 gm PO DAILY [facility] Last Admin: 01/15/18 09:01 Dose: 1 gm Oxycodone/Acetaminophen (Percocet 5/325 Mg Tab) 1 tab PO Q4H PRN PRN Reason: Pain, moderate (4-7) Stop: 01/16/18 13:45 Oxycodone/Acetaminophen (Percocet 5/325 Mg Tab) 2 tab PO Q4H PRN PRN Reason: Pain, severe (8-10) Stop: 01/16/18 13:45 Last Admin: 01/14/18 19:25 Dose: 2 tab - Labs Labs: 01/14/18 07:24 01/14/18 07:24 PT 10.3 SECONDS (9.7-12.2) 01/11/18 10:14 INR 0.9 01/11/18 10:14 APTT 33 SECONDS (21-34) 01/11/18 10:14 - Constitutional Appears: Well, Non-toxic, No Acute Distress - Head Exam Head Exam: ATRAUMATIC, NORMOCEPHALIC - Extremities Exam Additional comments: RLE focused exam: Vasc: DP/PT pulses palpable 1/4. Temperature gradient warm to cool. CFT < 3 sec x 3 digits. No pedal edema Derm: Surgical site noted to the right dorsomedial forefoot; no purulence or serosanguinous drainage noted, suture intact with skin edges well coapted. Neuro: Protective sensation grossly intact Ortho: no tenderness to palpation of surgical site. - Neurological Exam Neurological Exam: Alert, Awake, Oriented x3 - Psychiatric Exam Psychiatric exam: Normal Affect, Normal Mood Assessment and Plan - Assessment and Plan (Free Text) Assessment: 68 y/o female 2 day s/p right foot primary closure of wound Plan: Pt seen and evaluated at bedside with Dr. Rocha Chart, labs and vitals reviewed; afebrile, absent leukocytosis Continue IV abx Wound cleaned with saline and dressed with xeroform, DSD Patient to remain NWB to and from the commode only. Nurse advised to bring commode for the patient. Podiatry plan: Patient stable for discharge from podiatry point of view. Will continue to follow while in house.
[2018-01-16] MEDS: Cefepime IV 1 gm in Dextrose 1 GM/50 ML BAG IVPB SCH ×2 (00:15→08:52)
--- NOTE | 2018-01-16 00:15 | CARD ---
APPROVED REPORT Date of service: 01/11/2018 EKG Measurement Heart [id number] <Conclusion> Normal sinus rhythm Left ventricular hypertrophy with repolarization abnormality Cannot rule out Septal infarct, age undetermined Abnormal ECG
[2018-01-16 00:45] VITALS: O2SAT 96
[2018-01-16] MEDS: Lactated Ringer's 1,000 ML IV SCH (04:58)
[2018-01-16] MEDS: (Novolin R) Insulin Human Regular 100 units/ml vial SC SCH ×2 (08:32→12:32)
[2018-01-16 08:33] VITALS: BP 170/72; PULSE 71; TEMP 97.9
--- NOTE | 2018-01-16 08:42 | CP.PCM.PN ---
Subjective - Date & Time of Evaluation Date of Evaluation: 01/14/18 Time of Evaluation: 08:42 - Subjective Subjective: Patient is feeling well. No pain noted. Denies any nausea vomiting. On antibiotic. Clinical examination is unremarkable. Status post surgical intervention to the stump of the right foot to competition. Clinical stable. Currently an antibiotic. Continue to monitor and possible discharge planning few days Objective - Vital Signs/Intake and Output Vital Signs (last 24 hours): Temp Pulse Resp BP Pulse Ox 97.9 F 71 20 170/72 H 96 01/16/18 08:31 01/16/18 08:31 01/16/18 08:31 01/16/18 08:31 01/16/18 08:31 Intake and Output: 01/16/18 01/16/18 06:59 18:59 Intake Total 760 Balance 760 - Medications Medications: Current Medications Acetaminophen (Tylenol 325mg Tab) 650 mg PO Q6 PRN PRN Reason: Pain, Mild (1-3) Apixaban (Eliquis) 2.5 mg PO BID [facility] Last Admin: 01/15/18 17:53 Dose: 2.5 mg Aspirin (Aspirin Chewable) 81 mg PO DAILY [facility] Last Admin: 01/15/18 13:56 Dose: 81 mg Gabapentin (Neurontin) 600 mg PO TID [facility] Last Admin: 01/15/18 17:59 Dose: 600 mg Home Med (Durezol) 1 drop OS Q8 [facility] Cefepime HCl (Maxipime Iv 1 Gm Premix) 1 gm in 50 mls @ 100 mls/hr IVPB Q8H [facility] PRN Reason: Protocol Last Admin: 01/16/18 00:15 Dose: 100 mls/hr Lactated Ringer's (Lactated Ringer's) 1,000 mls @ 80 mls/hr IV .[id number] [facility] Last Admin: 01/16/18 04:58 Dose: Not Given Insulin Human Regular (Novolin R) 0 unit SC ACHS [facility] PRN Reason: Protocol Last Admin: 01/16/18 08:32 Dose: Not Given Losartan Potassium (Cozaar) 25 mg PO DAILY [facility] Last Admin: 01/15/18 09:01 Dose: 25 mg Metoprolol Tartrate (Lopressor) 25 mg PO DAILY [facility] Last Admin: 01/15/18 09:02 Dose: 25 mg Wzkua-6-Pmjr Ethyl Esters (Lovaza) 1 gm PO DAILY [facility] Last Admin: 01/15/18 09:01 Dose: 1 gm Oxycodone/Acetaminophen (Percocet 5/325 Mg Tab) 1 tab PO Q4H PRN PRN Reason: Pain, moderate (4-7) Stop: 01/16/18 13:45 Last Admin: 01/16/18 00:25 Dose: 1 tab Oxycodone/Acetaminophen (Percocet 5/325 Mg Tab) 2 tab PO Q4H PRN PRN Reason: Pain, severe (8-10) Stop: 01/16/18 13:45 Last Admin: 01/14/18 19:25 Dose: 2 tab - Labs Labs: 01/14/18 07:24 01/14/18 07:24 PT 10.3 SECONDS (9.7-12.2) 01/11/18 10:14 INR 0.9 01/11/18 10:14 APTT 33 SECONDS (21-34) 01/11/18 10:14
--- NOTE | 2018-01-16 08:42 | CP.PCM.PN ---
Subjective - Date & Time of Evaluation Date of Evaluation: 01/15/18 Time of Evaluation: 18:11 - Subjective Subjective: Patient is feeling well. No pain noted. Denies any nausea vomiting. On antibiotic. Clinical examination is unremarkable. Status post surgical intervention to the stump of the right foot to competition. Clinical stable. Currently an antibiotic. Continue to monitor and possible discharge planning in am Objective - Vital Signs/Intake and Output Vital Signs (last 24 hours): Temp Pulse Resp BP Pulse Ox 97.9 F 71 20 170/72 H 96 01/16/18 08:31 01/16/18 08:31 01/16/18 08:31 01/16/18 08:31 01/16/18 08:31 Intake and Output: 01/16/18 01/16/18 06:59 18:59 Intake Total 760 Balance 760 - Medications Medications: Current Medications Acetaminophen (Tylenol 325mg Tab) 650 mg PO Q6 PRN PRN Reason: Pain, Mild (1-3) Apixaban (Eliquis) 2.5 mg PO BID [facility] Last Admin: 01/15/18 17:53 Dose: 2.5 mg Aspirin (Aspirin Chewable) 81 mg PO DAILY [facility] Last Admin: 01/15/18 13:56 Dose: 81 mg Gabapentin (Neurontin) 600 mg PO TID [facility] Last Admin: 01/15/18 17:59 Dose: 600 mg Home Med (Durezol) 1 drop OS Q8 [facility] Cefepime HCl (Maxipime Iv 1 Gm Premix) 1 gm in 50 mls @ 100 mls/hr IVPB Q8H [facility] PRN Reason: Protocol Last Admin: 01/16/18 00:15 Dose: 100 mls/hr Lactated Ringer's (Lactated Ringer's) 1,000 mls @ 80 mls/hr IV .[id number] [facility] Last Admin: 01/16/18 04:58 Dose: Not Given Insulin Human Regular (Novolin R) 0 unit SC ACHS [facility] PRN Reason: Protocol Last Admin: 01/16/18 08:32 Dose: Not Given Losartan Potassium (Cozaar) 25 mg PO DAILY [facility] Last Admin: 01/15/18 09:01 Dose: 25 mg Metoprolol Tartrate (Lopressor) 25 mg PO DAILY [facility] Last Admin: 01/15/18 09:02 Dose: 25 mg Sakvt-7-Hipe Ethyl Esters (Lovaza) 1 gm PO DAILY [facility] Last Admin: 01/15/18 09:01 Dose: 1 gm Oxycodone/Acetaminophen (Percocet 5/325 Mg Tab) 1 tab PO Q4H PRN PRN Reason: Pain, moderate (4-7) Stop: 01/16/18 13:45 Last Admin: 01/16/18 00:25 Dose: 1 tab Oxycodone/Acetaminophen (Percocet 5/325 Mg Tab) 2 tab PO Q4H PRN PRN Reason: Pain, severe (8-10) Stop: 01/16/18 13:45 Last Admin: 01/14/18 19:25 Dose: 2 tab - Labs Labs: 01/14/18 07:24 01/14/18 07:24 PT 10.3 SECONDS (9.7-12.2) 01/11/18 10:14 INR 0.9 01/11/18 10:14 APTT 33 SECONDS (21-34) 01/11/18 10:14
[2018-01-16] MEDS: Omega-3-Acid Ethyl Esters 1 GM Cap PO SCH (09:48)
[2018-01-16 12:01] LABS: BASO % 0.9 % (0.0-2.0); EOS # 0.1 K/uL (0.0-0.7); EOS % 2.2 % (0.0-4.0); LYMPH # 1.1 K/uL (1.0-4.3); LYMPH % 26.6 % (20.0-40.0); MEAN CELL VOLUME 82.3 fL (81.0-99.0); MEAN CORPUSCULAR HEMOGLOBIN 27.7 pg (27.0-31.0); MEAN CORPUSCULAR HGB CONC 33.6 g/dL (33.0-37.0); MEAN PLATELET VOLUME 9.3 fL (7.2-11.7); MONO # 0.3 K/uL (0.0-0.8); MONO % 6.7 % (0.0-10.0); NEUT # 2.6 K/uL (1.8-7.0); NEUT % 63.6 % (50.0-75.0); NRBC % 0.1 % (0.0-2.0); RBC 3.63 Mil/uL (3.80-5.20); RED CELL DISTRIBUTION WIDTH 14.2 % (11.5-14.5); WHITE BLOOD COUNT 4.1 K/uL (4.8-10.8)
[2018-01-16 13:36] LABS: BLOOD UREA NITROGEN 20 mg/dL (7-17); CALCIUM 9.7 mg/dl (8.6-10.4); GFR NON-AFRICAN AMERICAN > 60
--- NOTE | 2018-01-16 13:40 | OP ---
Copied To: PERFECTO PÉREZ, PGY1 Attending MD: Nelson Rocha DPM PROCEDURE DATE: 01/13/2018 SURGEON: Nelson Rocha DPM ELECTRICITY TRADING ANALYST: Dr. Perfecto Pérez, PGY-1. ANESTHESIOLOGIST: Dr. Blunt. TYPE OF ANESTHESIA: IV sedation with local anesthesia. PREOPERATIVE DIAGNOSIS: Right foot nonhealing ulcer, status post right first and second toe amputation. POSTOPERATIVE DIAGNOSIS: Right foot nonhealing ulcer, status post right first and second toe amputation. PROCEDURE: Debridement of right foot ulcer with primary closure. INDICATION: The patient is a 68-year-old female patient with the above diagnosis. The patient has exhausted all the conservative treatment at this time and now requires surgical intervention. The patient signed the consent after careful explanation of risks, benefits, complications, and alternatives for surgical procedure. No guarantees were given nor implied. NPO status was confirmed prior to taking the patient to the OR. PREPARATION: The patient was brought to the operating room and placed on the operating room table in a supine position. Time-out was performed for identification of the correct patient and the procedure after V-block infiltration fashioned into the periwound area. Once local anesthesia was achieved, right lower extremity was then prepped and draped in a normal sterile manner and the procedure began. No tourniquet was used during the procedure. DESCRIPTION OF PROCEDURE: Attention was directed to the right foot, where an approximately 3 cm x 1.2 cm x 0.3 cm ulceration was noted at the site of previous first and second digits amputation. The ulceration was noted to be composed of granular and fibrotic tissue with no visible bone exposure, with minimal hyperkeratotic area noted to the periwound area. No drainage was noted to the wound bed. A sterile 15 blade was then used to remove all the fibrotic and nonviable tissues from the wound base and the wound margins. The surgical site was then irrigated using sterile saline solution. At this time, 3-0 Vicryl sutures used for closure of subcutaneous tissues and 3-0 Prolene suture used for skin closure. The site was then dressed with Betadine, Adaptic, 4x4 gauze, Kerlix, and Isael bandage. POSTOPERATIVE CONDITION: The patient tolerated the anesthesia and the procedure well and was escorted to the recovery room with vital signs stable and neurovascular status intact to the right lower extremity. The patient is to be nonweightbearing to the right foot until tomorrow morning, then weightbearing as tolerated to the right lower foot using a surgical shoe. Podiatry will continue to follow the patient while in-house and will be seen by Dr. Rocha at his office upon discharge. The patient is to keep dressing clean, dry, and intact until seen at the bedside or at Dr. Rocha's office upon discharge. PERFECTO PÉREZ PGY1 Nelson Rocha DPM MTDShamar
--- NOTE | 2018-01-16 16:28 | CP.PCM.PN ---
Subjective - Date & Time of Evaluation Date of Evaluation: 01/16/18 Time of Evaluation: 11:00 - Subjective Subjective: Alert, awake, ambulatory, no distress or bleeding. Objective - Vital Signs/Intake and Output Vital Signs (last 24 hours): Temp Pulse Resp BP Pulse Ox 97.9 F 71 20 170/72 H 96 01/16/18 08:31 01/16/18 08:31 01/16/18 08:31 01/16/18 09:48 01/16/18 08:31 Intake and Output: 01/16/18 01/16/18 06:59 18:59 Intake Total 760 Balance 760 - Labs Labs: 01/16/18 11:48 01/16/18 11:48 PT 10.3 SECONDS (9.7-12.2) 01/11/18 10:14 INR 0.9 01/11/18 10:14 APTT 33 SECONDS (21-34) 01/11/18 10:14 Assessment and Plan - Assessment and Plan (Free Text) Assessment: 68 yr old female with diabetic foot, post amputation second and 3rd digit, seen and examined. Alert and orientedx3, ambulated by PT. No bleeding or pain noted. Cleared by podiatry and DR Quintero. Discussed with DR Gomez, plan to discharge home on cipro 500mg bid x 6 weeks. Advised to follow up with DR Ken Rocha in the office tomorrow at [address] Gomez in 1 week.
--- NOTE | 2018-02-06 18:10 | CP.PCM.DIS ---
Provider - Provider Date of Admission: 01/11/18 10:38 Attending physician: Brad Gomez MD Time Spent in preparation of Discharge (in minutes): 45 Hospital Course - Lab Results Lab Results: Micro Results 01/13/18 14:07 Foot - Right Gram Stain - Final 01/13/18 14:07 Foot - Right Wound Culture - Final Pseudomonas Aeruginosa 01/11/18 18:00 Toe Gram Stain - Final 01/11/18 18:00 Toe Wound Culture - Final Pseudomonas Aeruginosa Most Recent Lab Values WBC 4.1 K/uL (4.8-10.8) L 01/16/18 11:48 RBC 3.63 Mil/uL (3.80-5.20) L 01/16/18 11:48 Hgb 10.0 g/dL (11.0-16.0) L 01/16/18 11:48 Hct 29.8 % (34.0-47.0) L 01/16/18 11:48 MCV 82.3 fL (81.0-99.0) 01/16/18 11:48 MCH 27.7 pg (27.0-31.0) 01/16/18 11:48 MCHC 33.6 g/dL (33.0-37.0) 01/16/18 11:48 RDW 14.2 % (11.5-14.5) 01/16/18 11:48 Plt Count 128 K/uL (130-400) L 01/16/18 11:48 MPV 9.3 fL (7.2-11.7) 01/16/18 11:48 Neut % (Auto) 63.6 % (50.0-75.0) 01/16/18 11:48 Lymph % (Auto) 26.6 % (20.0-40.0) 01/16/18 11:48 [place] % (Auto) 6.7 % (0.0-10.0) 01/16/18 11:48 Eos % (Auto) 2.2 % (0.0-4.0) 01/16/18 11:48 Baso % (Auto) 0.9 % (0.0-2.0) 01/16/18 11:48 Neut # (Auto) 2.6 K/uL (1.8-7.0) 01/16/18 11:48 Lymph # (Auto) 1.1 K/uL (1.0-4.3) 01/16/18 11:48 [place] # (Auto) 0.3 K/uL (0.0-0.8) 01/16/18 11:48 Eos # (Auto) 0.1 K/uL (0.0-0.7) 01/16/18 11:48 Baso # (Auto) 0.0 K/uL (0.0-0.2) 01/16/18 11:48 Differential Comment 01/13/18 06:36 PT 10.3 SECONDS (9.7-12.2) 01/11/18 10:14 INR 0.9 01/11/18 10:14 APTT 33 SECONDS (21-34) 01/11/18 10:14 Sodium 140 mmol/L (132-148) 01/16/18 11:48 Potassium 4.9 mmol/L (3.6-5.2) 01/16/18 11:48 Chloride 102 mmol/L (98-107) 01/16/18 11:48 Carbon Dioxide 29 mmol/L (22-30) 01/16/18 11:48 Anion Gap 14 (10-20) 01/16/18 11:48 BUN 20 mg/dL (7-17) H 01/16/18 11:48 Creatinine 0.7 mg/dL (0.7-1.2) 01/16/18 11:48 Est GFR ( Amer) > 60 01/16/18 11:48 Est GFR (Non-Af Amer) > 60 01/16/18 11:48 POC Glucose (mg/dL) 170 mg/dL (65-110) H 01/16/18 11:22 Random Glucose 185 mg/dL (65-105) H 01/16/18 11:48 Calcium 9.7 mg/dl (8.6-10.4) 01/16/18 11:48 Total Bilirubin 0.9 mg/dL (0.2-1.3) 01/12/18 07:28 AST 13 U/L (14-36) L 01/12/18 07:28 ALT 24 U/L (9-52) 01/12/18 07:28 Alkaline Phosphatase 63 U/L (38-126) 01/12/18 07:28 Total Protein 6.7 g/dL (6.3-8.3) 01/12/18 07:28 Albumin 3.9 g/dL (3.5-5.0) 01/12/18 07:28 Globulin 2.8 gm/dL (2.2-3.9) 01/12/18 07:28 Albumin/Globulin Ratio 1.4 (1.0-2.1) 01/12/18 07:28 Blood Type B POSITIVE 01/11/18 10:14 Antibody Screen Negative 01/11/18 10:14 - Hospital Course Hospital Course: Patient is a 67 y/o female with past medical history of diabetes, hypertension, hyperlipidemia, peripheral vascular disease, DVT, and CAD, who presents to the ED with ulcer of her right foot. She also complains of pain in her left foot due to multiple cuts on the sole. Patient denies trauma to the left foot and attributes the cuts to dryness caused by diabetes. The pain does not radiate up her legs and stays localized to her feet. Patient rates the pain on her right toes a 5/10 and left foot, 10/10. Patient states she has no trouble walking and has been using a cane to ambulate. Currently, patient complains of pain in her right 1st and 2nd toes and in the left sole, as well as coldness and occasional numbness and tingling to her feet bilaterally. She denies ISBELL, fever, chills, n/v, chest pain, abdominal pain, and leg swelling/pain. PMD: Dr. Culp Cardio: Dr. Alvarado Podiatry: Dr. Rocha Vascular: Dr. Nur PMHx: DM, HTN, HLD, PVD, DVT, CAD Social Hx: pack daily for +40 years; denies alcohol and illicit drug use Allergies: seasonal Surgery: peripheral lower extremity stents bilaterally, coronary stent (x1), tonsillectomy, FHx: motherDM; sisterdeceased at 27 y/o due to salivary gland CA; brothersdeceased due to lymphoma and [place] Meds: glipizide, metformin, gabapentin, atorvastatin, metoprolol, amlodipine, losartan, eliquis, aspirin, Pepcid, Januvia, tramadol, omega 3 clinically stabke high K noted repeat labs pt with non healing ulcer DM HTN PVD CAD HPI: 67-year-old female with a history of diabetes, hypertension, hyperlipidemia, peripheral vascular disease, DVT, CAD, 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 Patient came to the office for left eye cataract surgery. Currently patient is feeling well. Quit smoking Denies any chest pain or shortness of breath. Past medical history as noted above Surgical history patient was a smoker half pack per day for 40 years, currently quit Denies any alcohol no drugs Allergies none Surgical history includes a coronary stenting, tonsillectomy, , PVD Family history: Mother diabetes sister secondary to salivary gland cancer at the age of 27 Brother had lymphoma and heart disease. Current medications reviewed Review of system: Noted from the chart No chest pain or shortness of breath. Left eye cataract. Denies any GI symptoms On examination: Vital signs stable Chest good air entry Nontender abdomen no pedal edema THIRD COOK alert awake oriented 3 no functional neurological deficit Patient hospital records reviewed Labs noted EKG nonspecific Assessment and recommendation: 67-year-old female with a history of diabetes hypertension hyperlipidemia PVD DVT CAD. Admitted recently with the right leg ulcer. Course in the hospital. Patient was admitted to the hospital. 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 Wound debridement was done ulcers were cleaned the, cultures were taken. Closely patient monitored intravenous antibiotic administered clinical patient is stable. She will be discharged home today. She will follow up as an outpatient. Final diagnoses acute nonhealing ulcer of the right leg. Peripheral vascular disease. Status post intervention. Discharge Exam - Head Exam Head Exam: ATRAUMATIC, NORMOCEPHALIC Discharge Plan - Discharge Medications Prescriptions: Ciprofloxacin HCl [Cipro] 500 mg PO BID 42 Days tablet - Follow Up Plan Condition: FAIR Disposition: HOME/ ROUTINE Instructions: Diabetes Exchange Diet, Diabetic Foot Ulcer (DC) Referrals: Brad Gomez MD [Staff Provider] -
== END 2018-01-16 13:55 | disposition home or self-care (01) | DRG 618 ==
LOC: C.ER 08:43 → C.5S 10:38 → C.3T 11:39
PROVIDERS: ADMIT Internal Medicine; ATTEND Internal Medicine
PROC: 0Y6R0Z2 Detachment at Right 2nd Toe, Mid, Open Approach (ICD-10-PCS; 2018-01-13)
PROC: 0Y6P0Z2 Detachment at Right 1st Toe, Mid, Open Approach (ICD-10-PCS; principal; 2018-01-13 12:30)
DX: E11.621 Type 2 diabetes mellitus with foot ulcer (principal); E11.51 Type 2 diabetes mellitus with diabetic peripheral angiopathy without gangrene; L97.519 Non-pressure chronic ulcer of other part of right foot with unspecified severity; L08.9 Local infection of the skin and subcutaneous tissue, unspecified; I25.10 Atherosclerotic heart disease of native coronary artery without angina pectoris; E78.5 Hyperlipidemia, unspecified; I10 Essential (primary) hypertension; Z87.891 Personal history of nicotine dependence; Z95.5 Presence of coronary angioplasty implant and graft; E78.00 Pure hypercholesterolemia, unspecified; E11.628 Type 2 diabetes mellitus with other skin complications

== ENCOUNTER 2018-07-25 10:56 | Outpatient (CLI) | payer MEDICARE, MEDICAID | END 2018-07-25 10:57 | disposition home or self-care (01) | LOC: C.VASC 10:56 ==